=== PATIENT | female | born 1975 | race Caucasian/White ===

== ENCOUNTER 2017-04-26 16:45 | Emergency (ER) | payer MEDICAID, SELFPAY ==
[2017-04-26 16:46] VITALS: BP 132/71; PULSE 80; RESP 16; TEMP 36.9; O2SAT 96; BMI 34.8
--- NOTE | 2017-04-26 17:08 | EKG12_ITS ---
Test Reason : CP Blood Pressure : / mmHG Vent. Rate : 072 BPM Atrial Rate : 072 BPM P-R Int : 142 ms QRS Dur : 082 ms QT Int : 402 ms P-R-T Axes : 053 094 034 degrees QTc Int : 440 ms Normal sinus rhythm with sinus arrhythmia Septal [place], age undetermined, cannot be excluded Confirmed by SAVITA ENCISO, GIN ([id number]), writer editor CHRISTINE FRENCH ([id number]) on 04/28/2017 9:45:00 AM Referred By: TIMI Confirmed By:GIN BARNEY MD
[2017-04-26 17:19] LABS: Absolute Neutrophil Count 9.8 X10^3/uL (2.0-7.7); Basophil# 0.01 X10^3/uL; Basophil% 0.1 % (0-1); Eosinophil# 0.06 X10^3/uL; Eosinophils% 0.5 % (0-5); Hematocrit 40.1 % (37-47); Hemoglobin 12.7 g/dl (12.0-15.0); Lymphocyte % 13.3 % (19-41); Mean Corp Hgb Conc 31.7 g/gl (32-36); Mean Corpuscular Hgb 29.3 pg (27.0-32.0); Mean Corpuscular Volume 92.6 fL (81-99); Mean Platelet Vol. 9.4 fl (6.2-12.0); Monocyte# 0.56 X10^3/uL; Monocyte% 4.6 % (0-10); Neutrophil # 9.83 X10^3/uL (2.7-7.7); Neutrophil % 81.4 % (47-70); POSITIVE COUNT NO; POSITIVE DIFFERENTIAL NO; POSITIVE MORPHOLOGY NO; Platelet Count 254 K/mm3 (150-450); RBC Distribution Width CV 14.1 % (11.6-14.6); RBC Distribution Width SD 47.7 fl (35.1-43.9); Red Blood Count 4.33 M/mm3 (4.2-5.4); White Blood Count 12.1 K/mm3 (4.4-11.0)
--- NOTE | 2017-04-26 17:26 | RAD_ITS ---
STUDY: X-RAY CHEST REASON FOR EXAM: Female, 41 years old. Pain. TECHNIQUE: PA and lateral views of the chest. COMPARISON: December 08, 2016 and March 23, 2017 FINDINGS: There is no significant interval change since the prior examinations. No new focal consolidation. Normal size heart. Normal mediastinum and violetta. Normal visualized pulmonary arteries. Normal visualized aortic arch and descending thoracic aorta. Normal visualized thoracic spine. Normal visualized ribs, clavicles, and shoulders. There is no demonstrated abnormality of the visualized soft tissue structures of the upper abdomen. RAD/Chest PA and Lateral IMPRESSION: No acute cardiopulmonary process. Electronically Signed: Shena Hall MD at 18:39 EST Tel , Service support ,
[2017-04-26 17:31] LABS: Anion Gap 7 (5-15); BUN 11 mg/dL (7-18); Calcium,Total 8.5 mg/dL (8.5-10.1); Chloride 110 mmol/L (98-107); Creatinine, Serum 0.61 mg/dL (0.55-1.02); EST Glomerular Filtration Rate 113 mL/min (>60); Est Glom Filt Rate - Afr Amer 137 mL/min (>60); Estimated Creatinine Clearance 99.38 ml/min; Glucose 91 mg/dL (74-106); Potassium 3.4 mmol/L (3.5-5.1); Sodium Level 142 mmol/L (136-145)
[2017-04-26] MEDS: Aspirin 81 MG TAB.CHEW 324 MG PO (17:55)
[2017-04-26 17:56] VITALS: BP 118/71; PULSE 79; RESP 17; O2SAT 98
[2017-04-26 18:34] VITALS: BP 115/72; PULSE 60; RESP 16; O2SAT 98
--- NOTE | 2017-04-26 18:41 | ED.VISSUMM ---
- ER Visit Summary Date of Service: 04/26/17 Chief Complaint: Chest pain History of Present Illness: The patient is a 41 F who presents with chest pain. This is been present for the past 4 days. She currently rates it as 8 out of 10. She states initially it felt like an indigestion but at times is aching. It is been constant all day today. She has some mild shortness of breath and cough. She felt lightheaded. She complains of pain worse with swallowing. She sometimes feels as if something is stuck in her throat. She states her pain radiated into her right neck shoulder blade and arm to about the elbow. She is a smoker and there is a strong family history of heart disease with father and brother having heart attacks in their 40s. The patient does not have diabetes hypertension or hyperlipidemia. She states she previously had a stress test in [place] but left before finding out the results. Physical Examination: Afebrile vitals are stable Moist mucous membranes Heart regular rate and rhythm Lungs are clear Abdomen soft 2+ radial pulses No extremity edema or tenderness Test Results: EKG shows sinus rhythm at a rate of 72. Chest x-ray shows no acute process. Laboratory studies unremarkable except white blood cell count 12.1. Emergency Department Course and Treatment: Patient was given aspirin. Her laboratory studies are unremarkable and EKG does not show any acute ischemic changes. However given her description of symptoms was associated shortness of breath lightheadedness pain radiating to the arm and strong family history I did recommend hospital observation for serial enzymes and stress testing. The patient refused. She elected to leave AGAINST MEDICAL ADVICE. We did have a discussion of risks and benefits including risk of heart attack or . She understands she is welcome to return for reevaluation at any time. I spoke to Dr. Riggs who is covering for the patient's primary care physician to help arrange for outpatient follow-up. I advised that as an alternative she should have further outpatient workup and outpatient stress testing. Treatment Plan: [] Disposition: Left AGAINST MEDICAL ADVICE Impression: Chest pain This note was generated with [employer] dictation software. It may contain incorrect words, spelling, and punctuation that were not noted in review of the chart prior to signing ED Disposition - Plan for ED Patient: Chief Complaint: Chest Pain Referrals: Sobeida Berger MD [Primary Care Provider] -
--- NOTE | 2017-04-26 18:44 | ED.DEP ---
ED Disposition - Plan for ED Patient: Chief Complaint: Chest Pain Instructions: ED Chest Pain Atypical Unkn Cause Referrals: Sobeida Berger MD [Primary Care Provider] -
== END 2017-04-26 19:42 | disposition left against medical advice (07) ==
PROVIDERS: Emergency Provider Emergency Medicine; Family Provider Internal Medicine; PCP Internal Medicine
DX: R07.9 Chest pain, unspecified (principal); R05 Cough; R06.00 Dyspnea, unspecified; F32.9 Major depressive disorder, single episode, unspecified; K21.9 Gastro-esophageal reflux disease without esophagitis; F17.200 Nicotine dependence, unspecified, uncomplicated; Z79.899 Other long term (current) drug therapy; Z98.51 Tubal ligation status; Z90.49 Acquired absence of other specified parts of digestive tract
CPT/HCPCS: 71046; 80048; 84484; 85025; 93005; 99283

== ENCOUNTER 2017-04-29 11:35 | Emergency (ER) | payer MEDICAID, SELFPAY ==
[2017-04-26 18:34] VITALS: BP 115/72
[2017-04-29 11:36] VITALS: BP 135/77; PULSE 84; RESP 16; TEMP 36.7; O2SAT 96; BMI 30.1
[2017-04-29 11:52] VITALS: O2SAT 97
--- NOTE | 2017-04-29 11:52 | EKG12_ITS ---
Test Reason : CP Blood Pressure : / mmHG Vent. Rate : 067 BPM Atrial Rate : 067 BPM P-R Int : 138 ms QRS Dur : 080 ms QT Int : 382 ms P-R-T Axes : 039 082 044 degrees QTc Int : 403 ms Normal sinus rhythm with sinus arrhythmia Normal ECG Confirmed by SAVITA ENCISO, GIN ([id number]), commissioning editor CHRISTINE FRENCH ([id number]) on 05/01/2017 2:16:29 PM Referred By: AMY Confirmed By:GIN BARNEY MD
[2017-04-29] MEDS: Aspirin 81 MG TAB.CHEW 324 MG PO (12:00)
--- NOTE | 2017-04-29 12:09 | ED.DCSUM_ITS ---
- ER Visit Summary Date of Service: 04/29/17 Chief Complaint: Chest pain History of Present Illness: The patient is a 41 F who has had chest pain for greater than 5 days. It is a pressure in her substernal area that comes and goes. Nothing makes it better or worse. It makes her feel short of breath. It radiates up into her neck. She was seen here a couple of days ago and signed out AMA after a negative workup. They wanted to admit her to the hospital due to some risk factors. She is a smoker and she does have a family history. She is not hypertensive or diabetic. Physical Examination: Vital signs reviewed. HEENT exam unremarkable. Heart is regular rate and rhythm without murmurs. Lungs are clear to auscultation. She does have sternal tenderness to palpation. Abdomen is soft and nontender. Extremities reveal no edema. Peripheral pulses are equal. Skin exam normal. Neurologic exam normal. Test Results: EKG is normal sinus rhythm with a rate of 67. Chest x-ray unremarkable. Laboratory studies are normal Emergency Department Course and Treatment: Patient was placed in the night monitor. She was given a GI cocktail. I feel that her symptoms are likely due to anxiety. She has had 2 negative troponins. She is young with less than 3 risk factors. Her JERICA score is 1. I do not feel she needs to be admitted. I will give her something for anxiety for home. Her partner was here today and was treated for trichomonas. I will treat her with Flagyl. She will follow up with her PCP Treatment Plan: [] Disposition: Discharge Impression: Chest pain, anxiety This note was generated with [employer] dictation software. It may contain incorrect words, spelling, and punctuation that were not noted in review of the chart prior to signing ED Disposition - Plan for ED Patient: Chief Complaint: Chest Pain Referrals: Sobeida Berger MD [Primary Care Provider] -
--- NOTE | 2017-04-29 12:11 | RAD_ITS ---
STUDY: X-RAY CHEST REASON FOR EXAM: Female, 41 years old. Chest pain and chest tightness. TECHNIQUE: Single AP portable view of the chest. COMPARISON: Comparison is made with prior examination dated April 26, 2017. FINDINGS: EKG electrodes are seen. The lungs are clear and expanded. Scattered calcified granulomas. There is no demonstrated pleural abnormality. Normal size heart. Normal mediastinum and violetta. Normal visualized pulmonary arteries. Normal visualized aortic arch and descending thoracic aorta. Normal visualized thoracic spine. Normal visualized ribs, clavicles, and shoulders. There is no demonstrated abnormality of the visualized soft tissue structures of the upper abdomen. RAD/Chest 1 View (Portable) IMPRESSION: Normal x-ray examination of the chest. Electronically Signed: Dmitri Ramesh MD at 12:29 EST Tel [phone], Service support ,
[2017-04-29 12:39] LABS: Absolute Neutrophil Count 5.9 X10^3/uL (2.0-7.7); Basophil# 0.03 X10^3/uL; Basophil% 0.4 % (0-1); Eosinophil# 0.06 X10^3/uL; Eosinophils% 0.7 % (0-5); Hematocrit 37.6 % (37-47); Lymphocyte % 18.6 % (19-41); Mean Corp Hgb Conc 31.9 g/gl (32-36); Mean Corpuscular Hgb 29.3 pg (27.0-32.0); Mean Corpuscular Volume 91.9 fL (81-99); Mean Platelet Vol. 9.6 fl (6.2-12.0); Monocyte# 0.56 X10^3/uL; Monocyte% 6.9 % (0-10); Neutrophil # 5.89 X10^3/uL (2.7-7.7); Neutrophil % 73.2 % (47-70); Platelet Count 268 K/mm3 (150-450); RBC Distribution Width CV 13.7 % (11.6-14.6); RBC Distribution Width SD 45.1 fl (35.1-43.9); Red Blood Count 4.09 M/mm3 (4.2-5.4); White Blood Count 8.1 K/mm3 (4.4-11.0)
[2017-04-29 12:42] LABS: POSITIVE COUNT NO; POSITIVE DIFFERENTIAL NO; POSITIVE MORPHOLOGY NO
[2017-04-29 12:47] LABS: Anion Gap 7 (5-15); BUN 12 mg/dL (7-18); BUN/Creat Ratio 22.2 RATIO (10-20); Calcium,Total 8.8 mg/dL (8.5-10.1); Chloride 105 mmol/L (98-107); Creatinine, Serum 0.54 mg/dL (0.55-1.02); EST Glomerular Filtration Rate 131 mL/min (>60); Est Glom Filt Rate - Afr Amer 159 mL/min (>60); Estimated Creatinine Clearance 112.27 ml/min; Glucose 93 mg/dL (74-106); Potassium 3.9 mmol/L (3.5-5.1); Sodium Level 139 mmol/L (136-145)
--- NOTE | 2017-04-29 13:12 | ED.RN ---
pt requesting medication for anxiety. pt also repoirts needing treated for trichominiasis.
--- NOTE | 2017-04-29 13:16 | ED.DEP ---
ED Disposition - Plan for ED Patient: Disposition: Home or Assisted Living Chief Complaint: Chest Pain Instructions: ED Chest Pain NonCardiac Prescriptions: HydrOXYzine RADHA [Vistaril] 50 mg PO TID PRN PRN #30 cap PRN Reason: Anxiety Referrals: Sobeida Berger MD [Primary Care Provider] -
[2017-04-29] MEDS: LORazepam 1 MG Tablet PO (13:33)
[2017-04-29] MEDS: metroNIDAZOLE 500 MG Tablet 2000 MG PO (13:33)
[2017-04-29 13:40] VITALS: BP 119/70; PULSE 81; RESP 14; O2SAT 99
--- NOTE | 2017-04-29 13:40 | ED.RN ---
THIS RN EDUCATED PT ON DISCHARGE INSTRUCTIONS AND HOME GOING PRESCRIPTIONS. PT VERBALIZES UNDERSTANDING. PT GIVEN PO ATIVAN AND FLAGYL PRIOR TO DISCHARGE. PT REPORTS SHE HAS A HX OF GERD AND HAS BEEN INCREDIBLY STRESSED LATELY. PT ENCOURAGED TO FOLLOW UP WITH DR. PRAKASH, ALSO ENCOURAGED TO FIND POSITIVE COPING MECHANISMS. PT ENCOURAGED TO RETURN TO ED IS HAVING DIFFICULTY WITH ANXIETY OR AND NEW OR WORSENED SX OF CHEST PAIN. PT IV D/C AND COVERED WITH 2X2 GAUZE DRESSING. MINIMAL BLEEDING NOTED. EDUCATED NOT TO DRIVE AFTER HAVING ATIVAN. PT DRESSES SELF AND AMBULATES HOME WITH FRIEND WITHOUT ASSISTANCE FROM STAFF.
== END 2017-04-29 13:46 | disposition home or self-care (01) ==
PROVIDERS: Emergency Provider Emergency Medicine; Family Provider Internal Medicine; PCP Internal Medicine
DX: R07.9 Chest pain, unspecified (principal); R06.02 Shortness of breath; F41.9 Anxiety disorder, unspecified; F17.200 Nicotine dependence, unspecified, uncomplicated; Z20.2 Contact with and (suspected) exposure to infections with a predominantly sexual mode of transmission; Z79.899 Other long term (current) drug therapy; Z86.19 Personal history of other infectious and parasitic diseases
CPT/HCPCS: 71045; 80048; 84484; 85025; 93005; 99285; A4216

== ENCOUNTER 2017-06-11 12:26 | Emergency (ER) | payer MEDICAID, SELFPAY ==
[2017-06-11 12:31] VITALS: BP 115/86; PULSE 77; PULSE 87; RESP 18; TEMP 36.5; O2SAT 97; O2SAT 98; BMI 37.0
--- NOTE | 2017-06-11 13:02 | VDLE_ITS ---
Reason For Study: pain RIGHT LEFT GSV is normal. GSV is normal. CFV is compressible, spontaneous, phasic, CFV is compressible, spontaneous, phasic, competent and demonstrates normal competent, and demonstrates normal augmentation. augmentation. FV is compressible, spontaneous, phasic, FV is compressible, spontaneous, phasic, competent and demonstrates normal competent and demonstrates normal augmentation. augmentation. POP V is compressible, spontaneous, phasic, POP V is compressible, spontaneous, phasic, competent and demonstrates normal competent and demonstrates normal augmentation. augmentation. T/P Trunk is compressible. T/P Trunk is compressible. PTV is compressible. PTV is compressible. RT PerV is compressible. LT PerV is compressible. Procedure Exam performed portable in ED. The exam was diagnostic. A preliminary report was called and/or faxed to Dr. Murillo. Interpretation Summary No evidence for acute deep venous thrombosis bilateral lower extremities with patent and compressible bilateral great saphenous veins. Ordering Physician: Cassius Murillo Performed By: Ilya Alexander RVT
[2017-06-11] MEDS: Ketorolac 30 MG/ML Syringe IV (13:17)
[2017-06-11 13:30] LABS: Absolute Lymphocyte Count 1.66 X10^3/ul (0.83-4.51); Absolute Neutrophil Count 6.4 X10^3/uL (2.0-7.7); Basophil# 0.02 X10^3/uL; Basophil% 0.2 % (0-1); Eosinophil# 0.07 X10^3/uL; Eosinophils% 0.8 % (0-5); Hematocrit 37.6 % (37-47); Hemoglobin 11.9 g/dl (12.0-15.0); Lymphocyte # 1.66 X10^3/ul (4.0); Lymphocyte % 18.8 % (19-41); Mean Corp Hgb Conc 31.6 g/gl (32-36); Mean Corpuscular Hgb 28.9 pg (27.0-32.0); Mean Corpuscular Volume 91.3 fL (81-99); Mean Platelet Vol. 9.6 fl (6.2-12.0); Monocyte# 0.62 X10^3/uL; Neutrophil # 6.42 X10^3/uL (2.7-7.7); Neutrophil % 72.6 % (47-70); POSITIVE COUNT NO; POSITIVE DIFFERENTIAL NO; POSITIVE MORPHOLOGY NO; Platelet Count 240 K/mm3 (150-450); RBC Distribution Width CV 13.3 % (11.6-14.6); RBC Distribution Width SD 43.9 fl (35.1-43.9); Red Blood Count 4.12 M/mm3 (4.2-5.4); White Blood Count 8.8 K/mm3 (4.4-11.0)
[2017-06-11 13:38] LABS: Anion Gap 6 (5-15); BUN 12 mg/dL (7-18); BUN/Creat Ratio 21.4 RATIO (10-20); Calcium,Total 8.4 mg/dL (8.5-10.1); Chloride 104 mmol/L (98-107); Creatinine, Serum 0.56 mg/dL (0.55-1.02); EST Glomerular Filtration Rate 125 mL/min (>60); Est Glom Filt Rate - Afr Amer 152 mL/min (>60); Estimated Creatinine Clearance 107.15 ml/min; Glucose 85 mg/dL (74-106); Sodium Level 138 mmol/L (136-145)
[2017-06-11 13:55] LABS: Pregnancy, Serum, hCG Quali. NEGATIVE Negative (0-9 Nonpreg)
[2017-06-11 14:03] LABS: Bacteria 0 SEEN /hpf (None Seen); Mucous, Urine 0 SEEN /hpf (<or=2+); Red Blood Cells-Urine 0 SEEN /hpf (0-5); White Blood Cells 0 SEEN /hpf (0-5)
[2017-06-11 14:05] LABS: Color, Urine Yellow (Yellow); Glucose, Dipstick Normal (Normal); Ketone-Dipstick Negative (Negative); Leukocyte Esterase-Dipstick Negative /ul (Negative); Nitrite-Dipstick Negative (Negative); Occult Blood-Urine Negative /ul (Negative); Protein-Dipstick Negative (Negative); Urine Bilirubin Dipstick Negative (Negative); Urine Clarity Clear (Clear); Urine Urobilinogen Normal (Normal)
[2017-06-11 14:14] LABS: Squamous Epithelial Cells - UA 0-5 SEEN /hpf (5-10)
--- NOTE | 2017-06-11 14:19 | ED.VISSUMM ---
- ER Visit Summary Date of Service: 06/11/17 Chief Complaint: Bilateral calf pain History of Present Illness: The patient is a [address] Berger. She reports that she has had pain in both calves for approximately a week. She states it got much worse today. She denies any trauma. No fall, MVA, or change in activity. She describes the pain as a sharp, burning pain. Is 10 out of 10 when she walks and 7 out of 10 at rest. She denies any numbness or weakness. Physical Examination: Vitals: Stable. Afebrile. General: Well-nourished and well-developed. Head: Normocephalic atraumatic. Neck: Supple, no lymphadenopathy. No JVD. Nontender. Cardiovascular: Regular rate and rhythm. No murmurs. Respiratory: No respiratory distress. Clear to auscultation bilaterally. Abdominal: Soft, nontender, nondistended, normal bowel sounds. No guarding, rebound, or peritoneal signs. Back: Nontender. Extremities: There is palpation over her calves bilaterally. There is no edema. She is a 2+ dorsalis pedis pulse bilaterally. There is no erythema or warmth to suggest infection. Skin: Normal color, no rash. Neurologic: Alert and oriented ?3. Cranial nerves II through XII are intact. Normal strength and sensation. Psych: Normal affect. Test Results: Lower extremity Dopplers were negative. CBC is marked for hemoglobin of 11.9, segmented neutrophils 73, lymphs at 19. Chem-7 is more for calcium of 8.4. UA is normal. test is negative. Emergency Department Course and Treatment: Patient was treated with Toradol IV and she is resting comfortably. Treatment Plan: At this time I do not have an explanation for the patient's pain. However, I do not think that being placed on opiate medication is in her best interest. She will be discharged naproxen and instructed to follow-up Dr. Berger for further evaluation. Return to the emergency department for any worsening symptoms. Disposition: To home in improved and stable condition. Impression: 1. Bilateral calf pain, acute. This note was generated with [employer] software. It may contain incorrect words, spelling, and punctuation that were not noted in review of the chart prior to signing ED Disposition - Plan for ED Patient: Disposition: Home or Assisted Living Chief Complaint: Lower Extremity Injury Instructions: ED Muscle Aching Prescriptions: Naproxen [Naprosyn] 500 mg PO BID #20 tablet Referrals: Sobeida Berger MD [Primary Care Provider] - 3-5 Days if not improving
[2017-06-11 14:30] VITALS: BP 115/83; PULSE 70; RESP 16; O2SAT 99
== END 2017-06-11 14:30 | disposition home or self-care (01) ==
PROVIDERS: Emergency Provider Emergency Medicine; Family Provider Internal Medicine; PCP Internal Medicine
DX: M79.662 Pain in left lower leg (principal); M79.661 Pain in right lower leg; J44.9 Chronic obstructive pulmonary disease, unspecified; Z72.0 Tobacco use; Z79.1 Long term (current) use of non-steroidal anti-inflammatories (NSAID); Z79.899 Other long term (current) drug therapy
CPT/HCPCS: 80048; 81001; 84703; 85025; 93970; 96361; 96374; 99285; J7040; A4216

== ENCOUNTER 2017-10-16 16:39 | Emergency (ER) | payer MEDICAID, SELFPAY ==
[2017-10-16 16:45] VITALS: BP 116/91; PULSE 87; RESP 18; TEMP 36.9; O2SAT 98; BMI 37.6
--- NOTE | 2017-10-16 16:54 | CT_ITS ---
STUDY: CT ABDOMEN AND PELVIS WITH CONTRAST REASON FOR EXAM: Female, 42 years old. Back pain RADIATION DOSAGE (If Supplied By Facility): CTDIvol = ( 19.11 ) mGy, DLP = ( 1147.13 ) mGycm TECHNIQUE: Transaxial images were obtained from the dome of the diaphragm to the symphysis pubis without oral contrast. 100ML ml of Isovue 300 contrast was administered. Sagittal and coronal images were reconstructed. Individualized dose optimization techniques were used for this CT. COMPARISON: September 23, 2016 FINDINGS: The visualized lung bases are unremarkable. The visualized portions of the heart are within normal limits. Normal liver. There are surgical clips in the gallbladder fossa consistent with a prior cholecystectomy. Normal spleen. Normal pancreas. Normal bilateral adrenal glands. Normal right kidney. Normal left kidney. Normal visualized stomach. Normal small intestine. Normal colon. There is non-visualization of the appendix. Normal abdominal aorta. Normal inferior vena cava. Normal retroperitoneum. Normal urinary bladder. Uterus normal. Normal abdominal wall. Limbus vertebrae at T12. Schmorl's node disease T11 and T12. CT/Abdomen/Pelvis W IV Cont ONLY IMPRESSION: Normal enhanced CT of the abdomen and pelvis. Electronically Signed: Ranjit Mistry MD at 18:27 EDT , Service support ,
--- NOTE | 2017-10-16 16:55 | ED.VISSUMM ---
- ER Visit Summary Date of Service: 10/16/17 Chief Complaint: Pelvic pain History of Present Illness: The patient is a 42 F who states today at work she has sudden onset of sharp stabbing and cramping suprapubic pain. States she feels it directly into her back. She is less this appears to weeks ago but now she is having some vaginal bleeding described as very heavy. She only has very regular periods. She had bilateral tubal ligation cholecystectomy. States she had a history of kidney stones as a kid. Patient states this feels like period cramps ?1000. Physical Examination: Afebrile vital signs stable Gen: Well-nourished well-developed Head: Normocephalic atraumatic Eyes: Perrl EOMI ENT: TMs clear no rhinorrhea moist mucous membranes Neck: Supple no lymphadenopathy no JVD nontender CVS: Regular rate rhythm no murmurs normal S1-S2 Respiratory: No distress clear to auscultation bilaterally chest nontender Abdomen: Soft she complains of tenderness palpation in the suprapubic region. Nondistended normal bowel sounds no masses Back: Nontender Extremity: Nontender no edema Skin: Normal color no rash Neuro: alert orientated ?3 CN II-XII intact normal strength sensation reflexes gait cerebellar Psych: Normal affect normal mood Test Results: CBC chemistries parents test negative. CT of the abdomen pelvis also negative. Emergency Department Course and Treatment: Patient received morphine and stated did not help. She received Toradol with some improvement. Patient will be discharged home on Toradol. She will follow-up with [facility]. Impression: 1. Abdominal pain 2. Dysfunctional uterine bleeding This note was generated with [facility] dictation software. It may contain incorrect words, spelling, and punctuation that were not noted in review of the chart prior to signing ED Disposition - Plan for ED Patient: Disposition: Home or Assisted Living Chief Complaint: Abd Pain Instructions: ED Bleed Irregular Vaginal Prescriptions: Ketorolac [Toradol] 10 mg PO Q8H PRN #12 tab PRN Reason: Pain Additional Instructions: Please follow-up with your [facility] MACHINE [facility]PERATOR [facility].
--- NOTE | 2017-10-16 17:01 | ED.DCSUM_ITS ---
- ER Visit Summary Date of Service: 10/16/17 Chief Complaint: Pelvic pain History of Present Illness: The patient is a 42 F who states today at work she has sudden onset of sharp stabbing and cramping suprapubic pain. States she feels it directly into her back. She is less this appears to weeks ago but now she is having some vaginal bleeding described as very heavy. She only has very regular periods. She had bilateral tubal ligation cholecystectomy. States she had a history of kidney stones as a kid. Patient states this feels like period cramps ?1000. Physical Examination: Afebrile vital signs stable Gen: Well-nourished well-developed Head: Normocephalic atraumatic Eyes: Perrl EOMI ENT: TMs clear no rhinorrhea moist mucous membranes Neck: Supple no lymphadenopathy no JVD nontender CVS: Regular rate rhythm no murmurs normal S1-S2 Respiratory: No distress clear to auscultation bilaterally chest nontender Abdomen: Soft she complains of tenderness palpation in the suprapubic region. Nondistended normal bowel sounds no masses Back: Nontender Extremity: Nontender no edema Skin: Normal color no rash Neuro: alert orientated ?3 CN II-XII intact normal strength sensation reflexes gait cerebellar Psych: Normal affect normal mood Test Results: CBC chemistries parents test negative. CT of the abdomen pelvis also negative. Emergency Department Course and Treatment: Patient received morphine and stated did not help. She received Toradol with some improvement. Patient will be discharged home on Toradol. She will follow-up with COATER OPERATOR. Impression: 1. Abdominal pain 2. Dysfunctional uterine bleeding This note was generated with [employer] dictation software. It may contain incorrect words, spelling, and punctuation that were not noted in review of the chart prior to signing ED Disposition - Plan for ED Patient: Disposition: Home or Assisted Living Chief Complaint: Abd Pain Instructions: ED Bleed Irregular Vaginal Prescriptions: Ketorolac [Toradol] 10 mg PO Q8H PRN #12 tab PRN Reason: Pain Additional Instructions: Please follow-up with your COATER OPERATOR.
[2017-10-16] MEDS: 0.9% Normal Saline 1,000 ML 125 ML IV (17:05)
[2017-10-16] MEDS: Ondansetron 4 MG/2 ML Vial IV (17:08)
[2017-10-16] MEDS: Morphine 4 MG/ML Syringe IV (17:08)
[2017-10-16 17:29] LABS: Absolute Lymphocyte Count 2.16 X10^3/ul (0.83-4.51); Absolute Neutrophil Count 6.1 X10^3/uL (2.0-7.7); Basophil# 0.01 X10^3/uL; Basophil% 0.1 % (0-1); Eosinophil# 0.06 X10^3/uL; Eosinophils% 0.7 % (0-5); Hematocrit 39.5 % (37-47); Hemoglobin 12.3 g/dl (12.0-15.0); Lymphocyte # 2.16 X10^3/ul (4.0); Lymphocyte % 24.1 % (19-41); Mean Corp Hgb Conc 31.1 g/gl (32-36); Mean Corpuscular Hgb 27.7 pg (27.0-32.0); Mean Platelet Vol. 9.5 fl (6.2-12.0); Monocyte# 0.65 X10^3/uL; Monocyte% 7.2 % (0-10); Neutrophil # 6.08 X10^3/uL (2.7-7.7); Neutrophil % 67.8 % (47-70); Platelet Count 311 K/mm3 (150-450); RBC Distribution Width SD 45.5 fl (35.1-43.9); Red Blood Count 4.44 M/mm3 (4.2-5.4)
[2017-10-16 17:31] LABS: Anion Gap 8 (5-15); BUN 13 mg/dL (7-18); BUN/Creat Ratio 20.8 RATIO (10-20); Calcium,Total 9.2 mg/dL (8.5-10.1); Chloride 105 mmol/L (98-107); Creatinine, Serum 0.62 mg/dL (0.55-1.02); EST Glomerular Filtration Rate 110 mL/min (>60); Est Glom Filt Rate - Afr Amer 134 mL/min (>60); Estimated Creatinine Clearance 96.78 ml/min; Glucose 95 mg/dL (74-106); Potassium 3.9 mmol/L (3.5-5.1); Sodium Level 140 mmol/L (136-145)
[2017-10-16 17:39] LABS: POSITIVE COUNT NO; POSITIVE DIFFERENTIAL NO; POSITIVE MORPHOLOGY NO
[2017-10-16 17:42] LABS: Pregnancy, Serum, hCG Quali. NEGATIVE Negative (0-9 Nonpreg)
[2017-10-16 18:23] LABS: Bacteria 0 SEEN /hpf (None Seen); Mucous, Urine 0 SEEN /hpf (<or=2+)
[2017-10-16 18:26] LABS: Color, Urine Yellow (Yellow); Glucose, Dipstick Normal (Normal); Ketone-Dipstick Negative (Negative); Leukocyte Esterase-Dipstick 25 /ul (Negative); Nitrite-Dipstick Negative (Negative); Occult Blood-Urine 250 /ul (Negative); Protein-Dipstick 15 mg/dl (Negative); Urine Bilirubin Dipstick Negative (Negative); Urine Clarity Sl. Cloudy (Clear); Urine Urobilinogen Normal (Normal)
[2017-10-16 18:43] LABS: Red Blood Cells-Urine 0-5 SEEN /hpf (0-5); Squamous Epithelial Cells - UA 0-5 SEEN /hpf (5-10); White Blood Cells 0-5 SEEN /hpf (0-5)
[2017-10-16 18:54] VITALS: BP 112/74; PULSE 75; RESP 18; O2SAT 98
[2017-10-16] MEDS: Ketorolac 30 MG/ML Syringe IV (19:13)
[2017-10-16 19:50] VITALS: BP 112/68; PULSE 78; RESP 16; O2SAT 98
== END 2017-10-16 19:56 | disposition home or self-care (01) ==
PROVIDERS: Emergency Provider Emergency Medicine; Family Provider Internal Medicine; PCP Internal Medicine
DX: N93.8 Other specified abnormal uterine and vaginal bleeding (principal); R10.9 Unspecified abdominal pain; F32.9 Major depressive disorder, single episode, unspecified; F41.9 Anxiety disorder, unspecified; Z79.899 Other long term (current) drug therapy; Z87.442 Personal history of urinary calculi; Z98.51 Tubal ligation status; Z90.49 Acquired absence of other specified parts of digestive tract
CPT/HCPCS: 74177; 80048; 81001; 84703; 85025; 96361; 96374; 96375; 99285; J7030; Q9967; A4216; J2405

== ENCOUNTER 2017-12-07 23:42 | Emergency (ER) | payer MEDICAID, SELFPAY ==
[2017-12-07 23:43] VITALS: BP 109/74; PULSE 107; RESP 18; TEMP 36.3; O2SAT 96; BMI 34.2
--- NOTE | 2017-12-07 23:55 | ED.VISSUMM ---
- ER Visit Summary Date of Service: 12/07/17 Chief Complaint: Nausea, vomiting, diarrhea History of Present Illness: The patient is a 42 F is had diarrhea for approximate the past 1 month. She has had mild nausea and vomiting that has worsened recently. She was a diffuse abdominal cramping just before she has diarrhea. She states she has stomach problems that are being worked up by her PCP. She has been given Bentyl but that seems to make her symptoms worse. She denies fever or chills. She denies recent antibiotics. Past history is significant for anxiety, kidney stone, asthma, IBS. She had hepatitis C that has been treated. Prior surgical history includes appendectomy, cholecystomy, tubal ligation. Physical Examination: Blood pressure is 109/74, temperature 97.4, heart rate 107, respiratory rate 18, pulse ox 96% on room air. Patient's lying in bed no acute distress. Head and neck examination unremarkable. Heart is regular rate and rhythm. Lung sounds are clear. Abdomen is soft with mild diffuse tenderness. No guarding or rebound. Hypoactive bowel sounds are present throughout. Test Results: [] Emergency Department Course and Treatment: Patient had lab work and stool studies ordered. When nursing went to start her IV line she stated she just wanted something to make her stop vomiting and having diarrhea. She did not want lab work done. Went back to the room to discuss with her. I advised her to give her something for nausea but we really do not have anything different to use for diarrhea other than what she is already using. Patient states she does not want other testing done. Family members with her and states they will take her to her doctor tomorrow. We discussed possibility of electrolyte abnormalities, dehydration, infectious diarrhea etc. and she voices understanding. Treatment Plan: [] Disposition: Discharge Impression: Gastroenteritis This note was generated with [employer] dictation software. It may contain incorrect words, spelling, and punctuation that were not noted in review of the chart prior to signing ED Disposition - Plan for ED Patient: Chief Complaint: Nausea/Vomiting/Diarrhea Referrals: Sobeida Berger MD [Primary Care Provider] -
--- NOTE | 2017-12-08 00:05 | ED.DEP ---
ED Disposition - Plan for ED Patient: Disposition: Home or Assisted Living Chief Complaint: Nausea/Vomiting/Diarrhea Instructions: ED Gastroenteritis Non Infec Prescriptions: Ondansetron [Zofran Odt] 4 mg PO Q8H PRN PRN #10 tablet PRN Reason: Nausea Referrals: Sobeida Berger MD [Primary Care Provider] - As soon as possible
[2017-12-08] MEDS: Ondansetron ODT 4 MG Tablet PO ×2 (00:14)
--- NOTE | 2017-12-08 00:16 | ED.DEP ---
ED Disposition - Plan for ED Patient: Disposition: Home or Assisted Living Chief Complaint: Nausea/Vomiting/Diarrhea Instructions: ED Gastroenteritis Non Infec Prescriptions: proMETHazine tablet [Phenergan] 25 mg PO Q6H PRN PRN #10 tab PRN Reason: Nausea Ondansetron [Zofran Odt] 4 mg PO Q8H PRN PRN #10 tablet PRN Reason: Nausea Referrals: Sobeida Berger MD [Primary Care Provider] - As soon as possible
[2017-12-08 00:24] VITALS: RESP 14
== END 2017-12-08 00:25 | disposition home or self-care (01) ==
LOC: ED 12-08 00:19
PROVIDERS: Emergency Provider Emergency Medicine; Family Provider Internal Medicine; PCP Internal Medicine
DX: K52.9 Noninfective gastroenteritis and colitis, unspecified (principal); J45.909 Unspecified asthma, uncomplicated; F41.9 Anxiety disorder, unspecified; Z72.0 Tobacco use; Z87.442 Personal history of urinary calculi; Z86.19 Personal history of other infectious and parasitic diseases; Z98.51 Tubal ligation status
CPT/HCPCS: 99282; A4216

== ENCOUNTER 2018-01-30 10:48 | Emergency (ER) | payer MEDICAID, SELFPAY ==
[2018-01-30 10:50] VITALS: BP 119/74; PULSE 70; RESP 16; TEMP 36.4; O2SAT 97; BMI 30.9
--- NOTE | 2018-01-30 11:24 | CT_ITS ---
STUDY: CT ABDOMEN AND PELVIS WITHOUT CONTRAST REASON FOR EXAM: Female, 42 years old. Pain. Injury RADIATION DOSAGE (If Supplied By Facility): CTDIvol = ( 15.03 ) mGy, DLP = ( 732.43 ) mGycm TECHNIQUE: Transaxial images were obtained from the dome of the diaphragm to the symphysis pubis without oral contrast, and without intravenous contrast. Sagittal and coronal images were reconstructed. Individualized dose optimization techniques were used for this CT. COMPARISON: October 17, 2015. FINDINGS: The visualized lung bases are unremarkable. The visualized portions of the heart are within normal limits. There is hepatomegaly with diffuse hepatic enlargement. There are surgical clips in the gallbladder fossa consistent with a prior cholecystectomy. Normal spleen. Normal pancreas. Normal bilateral adrenal glands. Normal right kidney. Normal left kidney. Normal visualized stomach. Normal small intestine. Normal colon. There is non-visualization of the appendix. Normal abdominal aorta. Normal inferior vena cava. Normal retroperitoneum. Normal urinary bladder. Normal visualized uterus. There is no free fluid in the abdomen or pelvis. Normal abdominal wall. . Nondisplaced left anterior eighth rib fracture, series 2 image 33/176. CT/Abdomen/Pelvis without Cont IMPRESSION: Left rib fracture. No solid organ injury. Electronically Signed: Doonvan Campos MD at 13:26 EST , Service support ,
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
[2018-01-30] MEDS: 0.9% Normal Saline 1,000 ML 1000 ML IV (12:09)
[2018-01-30] MEDS: Ondansetron 4 MG/2 ML Vial IV (12:09)
[2018-01-30] MEDS: Morphine 4 MG/ML Syringe IV (12:09)
[2018-01-30 12:19] LABS: Bacteria 0 SEEN /hpf (None Seen); Mucous, Urine 0 SEEN /hpf (<or=2+); Red Blood Cells-Urine 0 SEEN /hpf (0-5); White Blood Cells 0 SEEN /hpf (0-5)
[2018-01-30 12:23] LABS: Absolute Neutrophil Count 8.5 X10^3/uL (2.0-7.7); Basophil# 0.01 X10^3/uL; Basophil% 0.1 % (0-1); Eosinophils% 0.9 % (0-5); Hematocrit 43.1 % (37-47); Hemoglobin 13.5 g/dl (12.0-15.0); Lymphocyte % 15.4 % (19-41); Mean Corp Hgb Conc 31.3 g/gl (32-36); Mean Corpuscular Volume 89.2 fL (81-99); Mean Platelet Vol. 9.8 fl (6.2-12.0); Monocyte# 0.65 X10^3/uL; Monocyte% 5.9 % (0-10); Neutrophil # 8.54 X10^3/uL (2.7-7.7); Neutrophil % 77.5 % (47-70); POSITIVE COUNT NO; POSITIVE DIFFERENTIAL NO; POSITIVE MORPHOLOGY NO; Platelet Count 256 K/mm3 (150-450); RBC Distribution Width CV 14.6 % (11.6-14.6); RBC Distribution Width SD 47.2 fl (35.1-43.9); Red Blood Count 4.83 M/mm3 (4.2-5.4)
[2018-01-30 12:24] LABS: Color, Urine Yellow (Yellow); Glucose, Dipstick Normal (Normal); Ketone-Dipstick 5 mg/dl (Negative); Leukocyte Esterase-Dipstick 25 /ul (Negative); Nitrite-Dipstick Negative (Negative); Occult Blood-Urine Negative /ul (Negative); Protein-Dipstick 30 mg/dl (Negative); Specific Gravity, Urine 1.015 (1.002-1.030); Urine Bilirubin Dipstick Negative (Negative); Urine Clarity Clear (Clear); Urine Urobilinogen Normal (Normal)
[2018-01-30 12:25] LABS: Internal QC Validated? YES +Cl - CLEAR BKGD; Pregnancy, Urine Negative Negative
[2018-01-30 12:29] LABS: Squamous Epithelial Cells - UA 5-10 SEEN /hpf (5-10)
[2018-01-30 12:46] LABS: AST(SGOT) 13 U/L (15-37); Alanine Aminotransfer ALT/SGPT 21 U/L (13-56); Albumin, Serum 3.7 g/dL (3.2-5.0); Alkaline Phosphatase 79 U/L (45-117); Anion Gap 5 (5-15); BUN 13 mg/dL (7-18); BUN/Creat Ratio 21.4 RATIO (10-20); Bilirubin, Direct 0.16 mg/dL (0.00-0.30); Calcium,Total 8.6 mg/dL (8.5-10.1); Chloride 103 mmol/L (98-107); Creatinine, Serum 0.61 mg/dL (0.55-1.02); EST Glomerular Filtration Rate 114 mL/min (>60); Est Glom Filt Rate - Afr Amer 138 mL/min (>60); Estimated Creatinine Clearance 98.37 ml/min; Globulin 3.9 g/dL (2.2-4.2); Glucose 83 mg/dL (74-106); Lipase 186 U/L (73-393); Potassium 3.7 mmol/L (3.5-5.1); Protein, Total 7.6 g/dL (6.4-8.2); Sodium Level 136 mmol/L (136-145)
[2018-01-30 14:27] VITALS: BP 100/84; PULSE 85; RESP 19; O2SAT 99
--- NOTE | 2018-01-30 15:06 | ED.DEP ---
ED Disposition - Plan for ED Patient: Chief Complaint: Other, Pain/Inj Instructions: ED Diet Vomiting Diarrhea, ED Fx Rib Referrals: Sobeida Berger MD [Primary Care Provider] -
== END 2018-01-30 15:19 | disposition home or self-care (01) ==
LOC: ED 11:52
PROVIDERS: Emergency Provider Emergency Medicine; Family Provider Internal Medicine; PCP Internal Medicine
DX: R19.7 Diarrhea, unspecified (principal); S22.32XD Fracture of one rib, left side, subsequent encounter for fracture with routine healing; Y09 Assault by unspecified means; Z79.899 Other long term (current) drug therapy
CPT/HCPCS: 71046; 74176; 80048; 80076; 81001; 81025; 83690; 85025; 96361; 96374; 96375; 99283; J7030; J2405

== ENCOUNTER 2018-06-14 08:49 | Outpatient (RCR) | payer MEDICAID, SELFPAY ==
[2018-02-18 08:17] VITALS: BMI 30.1
--- NOTE | 2018-06-14 09:02 | BH.SGPN.GN ---
Behaviors/Verbalizations/Mental Status: []Client alert and oriented, casually dressed and groomed. Eye contact good. Motor activity appropriate. Speech within normal limits. Affect constricted, mood anxious. Thoughts linear, logical, no signs of hallucinations or delusions. Reviewed client?s symptom tracker, no risk for suicidal ideation, plan, or intent as of 06/14/18. Client Response/Progress/Benefit: []Client responded well to session, receptive to supportive statements from peers. Client reports feeling ?anxious? today as it is her first day in [facility]. Client shared she came to [facility] because of her depression, anxiety, and hearing voices. Client reported she hopes to learn ?a lot about myself? and gain coping skills while in the program. Client able to identify making it to group today and spending time with a friend over the weekend as mental health positives. Client shared she feels glad that ?we can be real in here? and connected with others on feeling overwhelmed. Client stated she also struggles with claustrophobia and reported feeling proud of herself for staying in the group room with the door closed. Client appeared to benefit from gaining support from peers. Client?s first day in [facility]. Client to continue to prevent decompensation and reduce intensity of symptoms.
--- NOTE | 2018-06-14 11:16 | BH.SGPN.GN ---
Behaviors/Verbalizations/Mental Status: [Eye contact is good. Motor activity is appropriate. Appearance is casual. Speech is Appropriate. Mood is anxious, dysthymic. Affect is congruent with mood. Thoughts are linear and logical. No evidence of psychosis.] Client Response/Progress/Benefit: [Pt participated in group activity and discussion, providing input and reflection to group. Pt worked with the group to complete the challenge activity and identify barriers encountered that may also impact managing stress in daily life. Identified barriers as focusing on trying to do the same thing over and over again, difficulty managing frustration, and negative self-talk. Pt worked with the group to identify strategies for coping with stress which included; singing and healthy distraction. Benefited from identifying personal barriers to managing stress, impact of stress on mental health, and stress management strategies. Pt indicated wanting to work on current stressor of medication noncompliance by taking them as prescribed and putting them somewhere she will remember. Pt to continue in IOP to prevent decompensation, improve management of depression and increase healthy skill application.] Narrative Note: []
--- NOTE | 2018-06-15 09:00 | BH.SGPN.GN ---
Behaviors/Verbalizations/Mental Status: [] Eye contact is good. Motor activity is appropriate. Appearance is casual. Speech is Appropriate. Mood is anxious. Affect is congruent. Thoughts are linear and logical. No evidence of psychosis. Reviewed daily check in sheet and no reports of suicidal ideations or intent Client Response/Progress/Benefit: [] Pt did participate at time during group discussions. Emotion for today is anxious. Shared some positives stating that she made it through her 1st day of IOP yesterday w/o having a panic attack. Also reports that she slept well last night, which is the first time in awhile for her. Also reports that she spent time with her sister. Shared that she struggles with her anxiety and cannot sit for longer than 30 minutes. Restless, fearful, and strong desire to move or leave a room after 30 minutes. No overt triggers to her anxiety. Group praised her for starting IOP and for her positives yesterday. Progress noted. Will continue in IOP to prevent decompensation, stabilize mood and medications, and increase mood management strategies for anxiety. Narrative Note: []
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
--- NOTE | 2018-06-15 15:16 | BH.MDN ---
Multi-Disciplinary Note - Note 60-min Individual Time Started:: 11:10 Date: 06/15/18 Purpose of session/treatment goals addressed:: Purpose of session was to assess pt's current symptoms and stressors. Other topics included: identifying treatment goals for IOP, gathering additional background information, and providing resources for housing/custodial. Eye Contact:: Good Motor Activity:: Restless Appearance:: Casual Speech:: Appropriate Mood:: Anxious Affect:: Congruent Thoughts:: Linear, Logical Staff Interventions:: Therapist used open ended questions to elicit pt's current symptoms and stressors. Therapist elicited pt's thoughts about treatment goals while in IOP. Therapist used probing questions to gather additional background information. Therapist provided resources for housing support. Therapist provided support by using active listening and validating emotions. Client Response:: Pt reported she would like to learn healthy coping strategies, be less anxious, increase self-esteem, and be able to start and finish a project. Pt shared her auditory hallucinations are always there constantly telling her to run. Pt reported in the past the hallunications would tell her to hurt herself or others, but reported she hasn't had those types of hallucinations since February 2018. Pt shared she doesn't think her medications are right because of how frequently she is hearing voices. Pt stated she has heard voices for years, but never told anyone until her hospitalization in February 2018. Pt reported she is hoping to get on a medication that can help decrease auditory hallucinations. Pt reported she is currently going between sleeping on the couch at her brother's house and her mom's house. Pt stated those living situations are not the best environments for her because there is often conflict and technically her mom is not allowed to have visitors due to [place] rules. Pt shared on the warmer nights she has slept at the park. Pt shared she feels all over the place because of her inconsistent living situation. Pt reported thus far she enjoys IOP and is hopeful she can learn healthy skills to help her manage her symptoms and feel more stable in her life. Pt agreeable to call [facility] to see if there are any beds available for women's custodial. Risks/Concerns:: Pt denies current suicidal ideation, plan or intention to date. Pt does report hx of command hallucinations telling her to harm herself or others. Pt states since inpatient hospitalization 03/2018 her command hallucinations have not told her to harm self or others. Pt will be continually monitored for risk. Progress Toward Goals/Plan:: No progress noted due to it only being pt's second day in IOP. Session focused on gathering background information and establishing treatment goals. Pt to continue IOP level of care to increase healthy coping, decrease hallucinations, and prevent decompensation. Time Stopped:: 12:15
--- NOTE | 2018-06-15 15:24 | BH.MDN_ITS ---
Multi-Disciplinary Note - Note 60-min Individual Time Started:: 11:10 Date: 06/15/18 Purpose of session/treatment goals addressed:: Purpose of session was to assess pt's current symptoms and stressors. Other topics included: identifying treatment goals for IOP, gathering additional background information, and providing resources for housing/penitentiary. Eye Contact:: Good Motor Activity:: Restless Appearance:: Casual Speech:: Appropriate Mood:: Anxious Affect:: Congruent Thoughts:: Linear, Logical Staff Interventions:: Therapist used open ended questions to elicit pt's current symptoms and stressors. Therapist elicited pt's thoughts about treatment goals while in IOP. Therapist used probing questions to gather additional background information. Therapist provided resources for housing support. Therapist provided support by using active listening and validating emotions. Client Response:: Pt reported she would like to learn healthy coping strategies, be less anxious, increase self-esteem, and be able to start and finish a project. Pt shared her auditory hallucinations are always there constantly telling her to run. Pt reported in the past the hallunications would tell her to hurt herself or others, but reported she hasn't had those types of hallucinations since February 2018. Pt shared she doesn't think her medications are right because of how frequently she is hearing voices. Pt stated she has heard voices for years, but never told anyone until her hospitalization in February 2018. Pt reported she is hoping to get on a medication that can help decrease auditory hallucinations. Pt reported she is currently going between sleeping on the couch at her brother's house and her mom's house. Pt stated those living situations are not the best environments for her because there is often conflict and technically her mom is not allowed to have visitors due to [place]. Pt shared on the warmer nights she has slept at the park. Pt shared she feels all over the place because of her inconsistent living situation. Pt reported thus far she enjoys IOP and is hopeful she can learn healthy skills to help her manage her symptoms and feel more stable in her life. Pt agreeable to call [facility] to see if there are any beds available for women's penitentiary. Risks/Concerns:: Pt denies current suicidal ideation, plan or intention to date. Pt does report hx of command hallucinations telling her to harm herself or others. Pt states since inpatient hospitalization 03/2018 her command hallucinations have not told her to harm self or others. Pt will be continually monitored for risk. Progress Toward Goals/Plan:: No progress noted due to it only being pt's second day in IOP. Session focused on gathering background information and establishing treatment goals. Pt to continue IOP level of care to increase healthy coping, decrease hallucinations, and prevent decompensation. Time Stopped:: 12:15
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
--- NOTE | 2018-06-18 15:07 | BH.DR.ITP ---
Initial Treatment Plan - Patient Information Visit Information: ADMISSION DATE: 06/14/18 EXPECTED LOS: 4-6 weeks Diagnoses:: Schizoaffective disorder, depressed type; persistent depressive disorder; borderline personality disorder; alcohol use disorder, cannabis use disorder - Problems/Symptoms Problem #1:: Schizoaffective disorder Symptom:: auditory hallucinations; command hallucinations; paranoia; depression Problem #2:: Persistent depressive disorder Symptom:: low mood; anhedonia; low energy and low motivation Problem #3:: borderline personality disorder Symptom:: mood swings, anger problems, relationship problems, impulsivity
--- NOTE | 2018-07-02 16:18 | BH.MTP_ITS ---
[facility] Treatment Plan - Patient Information Program Physician:: Dr. Dhaliwal Primary Therapist:: Fouzia Knapp, [facility] - Psychiatric Diagnoses Psychiatric Diagnoses:: Schizoaffective disorder, depressed type; persistent depressive disorder; alcohol use disorder in early remission; cannabis use disorder; r/o substance-induced psychotic disorder; borderline personality disorder Diagnosis Code(s):: F25.1 - Estimated LOS Estimated LOS (in weeks):: 6 Problem/Goal #1 - Problem/Goal #1 Stated Goal:: Control or eliminate active psychotic symptoms so that functioning is positive and medication is taken consistently. Description of Barriers: Pt has hx of medication noncompliance, hx of substance abuse, and difficulty tolerating being in enclosed spaces which could be barriers to treatment process. Pt's auditory hallucinations and paranoia could also impact treatment. Pt currently does not have stable living situation which could be barrier to treatment because often anxious about where she will be sleeping next. It could be challenging for pt to focus on using healthy coping when focused on meeting her basic needs. Functional Impact: Pt has recent psychiatric admission for suicide attempt via overdose then discharged into a residential facility for substance use. Pt difficulty maintaining employment, difficulty maintaining healthy relationships and not functioning at baseline. Goal Relevant Strengths/Supports: Pt is resilient and reports being motivated to get better. - Objectives Objective #1 Stated Objective: Report a decrease in psychotic symptoms through the consistent use of psychotropic medications. Interventions: Therapist will check-in with pt about medication compliance and effectiveness. Encourage consistent taking of prescribed medications. Discharge Criteria: Pt will have completed this objective when reports control or elimination of psychotic symptoms and reports improvement in daily functioning. Problem/Goal #2 - Problem/Goal #2 Stated Goal:: Client will reduce depressive symptoms, feelings of worthlessness, and anhedonia due to Persistent Depressive Disorder through Intensive Outpatient Program. Description of Barriers: Pt has hx of medication noncompliance, hx of substance abuse, and difficulty tolerating being in enclosed spaces which could be barriers to treatment process. Pt's auditory hallucinations and paranoia could also impact treatment. Pt currently does not have stable living situation which could be barrier to treatment because often anxious about where she will be sleeping next. It could be challenging for pt to focus on using healthy coping when focused on meeting her basic needs. Functional Impact: Pt has recent psychiatric admission for suicide attempt via overdose then discharged into a residential facility for substance use. Pt difficulty maintaining employment, difficulty maintaining healthy relationships and not functioning at baseline. Goal Relevant Strengths/Supports: Pt is resilient and reports being motivated to get better. - Objectives Objective #1 Stated Objective: Identify at least 2-3 negative self-talk messages used to reinforce feelings of worthlessness and replace thoughts with positive messages. Interventions: Therapist will help client identify distorted, negative beliefs about self and replace with more realistic, affirmative messages. Discharge Criteria: Client will have achieved this goal when can verbalize at least 2 negative self-talk messages and effectively replace those thoughts with affirmative messages. Target Date: 07/27/18 Review Date: 07/13/18 Objective #2 Stated Objective: Pt will decrease depressive symptoms AEB pt?s score on the DSM 5 cross-cutting measure and improve pt?s daily functioning. Interventions: Through groups and individual therapy, pt will be provided with education on cognitive distortions, mistaken beliefs, and identifying and combating negative self-talk. Therapist will assist pt with getting back into the activities she once enjoyed as well as increasing healthy coping strategies. Discharge Criteria: Pt will have met this goal when pt?s score on the DSM 5 cross cutting measure for depression has been decreased and per pt?s report daily functioning has improved. Target Date: 07/27/18 Review Date: 07/13/18 Problem/Goal #3 - Problem/Goal #3 Stated Goal:: Develop and demonstrate coping skills to deal with mood swings. Description of Barriers: Pt has hx of medication noncompliance, hx of substance abuse, and difficulty tolerating being in enclosed spaces which could be barriers to treatment process. Pt's auditory hallucinations and paranoia could also impact treatment. Pt currently does not have stable living situation which could be barrier to treatment because often anxious about where she will be sleeping next. It could be challenging for pt to focus on using healthy coping when focused on meeting her basic needs. Functional Impact: Pt has recent psychiatric admission for suicide attempt via overdose then discharged into a residential facility for substance use. Pt difficulty maintaining employment, difficulty maintaining healthy relationships and not functioning at baseline. Goal Relevant Strengths/Supports: Pt is resilient and reports being motivated to get better. - Objectives Objective #1 Stated Objective: Client will learn and utilize 2-3 healthy coping strategies to manage mood swings. Interventions: Therapist will help client develop insight into her mental health triggers and help her find strategies to help manage her moods. Discharge Criteria: Client will have met this goal when can identify and has utilized at least 2 healthy coping strategies that help manage mood swings. Target Date: 07/27/18 Review Date: 07/13/18
== END 2018-06-20 23:59 ==
LOC: BHIOP 08:49
PROVIDERS: Family Provider Internal Medicine; PCP Internal Medicine; Referring Provider Psychiatry & Neurology Psychiatry; Visit Provider Psychiatry & Neurology Psychiatry
DX: F32.89 Other specified depressive episodes (principal); Z72.89 Other problems related to lifestyle; F12.90 Cannabis use, unspecified, uncomplicated; F10.21 Alcohol dependence, in remission; F60.3 Borderline personality disorder; E66.9 Obesity, unspecified; K21.9 Gastro-esophageal reflux disease without esophagitis; R51 Headache; B19.20 Unspecified viral hepatitis C without hepatic coma; F17.210 Nicotine dependence, cigarettes, uncomplicated; Z79.899 Other long term (current) drug therapy; Z62.810 Personal history of physical and sexual abuse in childhood; Z91.410 Personal history of adult physical and sexual abuse
CPT/HCPCS: 99204; H0035; H2012; H2020; 90837

== ENCOUNTER 2018-06-17 09:21 | Emergency (ER) | payer MEDICAID, SELFPAY ==
[2018-02-18 08:17] VITALS: BMI 30.1
[2018-06-17 09:23] VITALS: BP 110/69; PULSE 77; RESP 12; TEMP 37.2; O2SAT 96; BMI 38.3
--- NOTE | 2018-06-17 09:46 | RAD_ITS ---
STUDY: X-RAY - UNILATERAL RIBS ( LEFT ) WITH CHEST REASON FOR EXAM: Female, 43 years old. Left rib pain due to injury. TECHNIQUE - RIBS: 4 view(s) of the ribs. TECHNIQUE - CHEST: PA and lateral views of the chest. COMPARISON: Comparison is made with prior chest radiograph dated January 30, 2018. FINDINGS - RIBS: Normal visualized ribs without a demonstrated fracture. FINDINGS - CHEST: The lungs are clear and expanded. There is no demonstrated pleural abnormality. Normal size heart. Normal mediastinum and violetta. Normal visualized pulmonary arteries. Normal visualized aortic arch and descending thoracic aorta. Normal visualized thoracic spine. Normal visualized ribs, clavicles, and shoulders. There is no demonstrated abnormality of the visualized soft tissue structures of the upper abdomen. RAD/Ribs Uni Min 3V w/PA Chest IMPRESSION: RIBS: Normal x-ray examination of the ribs. CHEST: Normal x-ray examination of the chest. Electronically Signed: Dmitri Ramesh, at 11:16 EDT , Service support ,
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
[2018-06-17] MEDS: Albuterol 2.5 MG/3 ML VIAL.NEB. INHALATION ×2 (09:56→09:57)
[2018-06-17] MEDS: Ipratropium/Albuterol Sulfate 3 ML AMPUL.NEB INHALATION (09:56)
[2018-06-17 09:57] VITALS: PULSE 63; RESP 18
[2018-06-17] MEDS: HYDROcodone Bitartrate/Apap 5/325 Tablet PO (10:46)
[2018-06-17] MEDS: predniSONE 20 MG Tablet 60 MG PO (10:47)
--- NOTE | 2018-06-17 12:00 | DCINST.ED_ITS ---
ED Disposition - Plan for ED Patient: Disposition: Home or Assisted Living Instructions: ED COPD Flare, ED Contusion Rib Prescriptions: Hydrocodone Bitart/Apap 5-325 [[place] 5MG-325MG] 1 tablet PO Q6H PRN PRN 3 Days #10 tablet PRN Reason: Pain Azithromycin [Zithromax] 250 mg PO DAILY #4 tablet Prednisone 10 mg PO UD #33 tablet Referrals: Sobeida Berger MD [Primary Care Provider] - 1-2 Weeks
[2018-06-17] MEDS: Azithromycin 250 MG Tablet 500 MG PO (12:12)
[2018-06-17 12:13] VITALS: BP 103/76; PULSE 64; RESP 14; O2SAT 97
== END 2018-06-17 12:17 | disposition home or self-care (01) ==
PROVIDERS: Emergency Provider Emergency Medicine; Family Provider Internal Medicine; PCP Internal Medicine
DX: J44.1 Chronic obstructive pulmonary disease with (acute) exacerbation (principal); S20.212A Contusion of left front wall of thorax, initial encounter; X58.XXXA Exposure to other specified factors, initial encounter; Y93.9 Activity, unspecified; Y92.9 Unspecified place or not applicable; Y99.9 Unspecified external cause status; K21.9 Gastro-esophageal reflux disease without esophagitis; G47.33 Obstructive sleep apnea (adult) (pediatric); F32.9 Major depressive disorder, single episode, unspecified; F41.9 Anxiety disorder, unspecified; Z72.0 Tobacco use; Z86.19 Personal history of other infectious and parasitic diseases
CPT/HCPCS: 71101; 94640; 99284

== ENCOUNTER 2018-06-23 09:00 | Outpatient (RCR) | payer MEDICAID, SELFPAY ==
[2018-06-21 01:44] VITALS: BMI 30.1
--- NOTE | 2018-06-23 10:07 | BH.SGPN.GN ---
Behaviors/Verbalizations/Mental Status: [Client eye contact good, grooming and attire casual, motor activity WNL, speech normal rate and tone, mood dysthymic, congruent affect, thoughts linear and intact, no evidence of delusions or hallucinations] Client Response/Progress/Benefit: [Pt receptive of session, attentive to discussion, and taking notes throughout. Pt remained a passive participant however listened as the group worked to reflect upon the quote regarding how we make decisions in our own lives. She indicated agreeing with others as they shared that that fear, past experiences, and anxiety can prevent making healthy decisions in daily life. Pt appeared to benefit from group discussion regarding ?Chapters of My Life? poem and provided insight regarding how each chapter can represent the various stages in management of mental health sx and healthy decision making. Pt did well to assess her own current mental health progress and shared that she is currently in Chapter 2 or 3. Explained that this is because ?I can see it coming but can?t stop it yet?, sharing that she identifies when she is about to make an unhealthy coping decision but struggles to keep herself from doing so. Pt progress noted in improved ability to reflect on her own experiences and impact they have had on mental health sx management. Recommended continued tx to continue to promote healthy change behaviors, reduce anxiety and depression, and prevent decompensating] Narrative Note: []
--- NOTE | 2018-06-23 11:15 | BH.SGPN.GN ---
Behaviors/Verbalizations/Mental Status: [] Eye contact is good. Motor activity is appropriate. Appearance is casual. Speech is Appropriate. Mood is depressed. Affect is flat. Thoughts are linear and logical. No evidence of psychosis. Client Response/Progress/Benefit: [] Pt was an active participant in group activity and discussion. Participated in group discussion about what helps people move through the chapters of their life. Completed that WDEP (wants, Doing, Evaluate, Plan) Worksheet and discussed with peers in small groups. Identified a want as to be stable and learn new ways to cope, identified things that she is doing in regards to that want which include; positive thinking, paying attention in group, and remaining sober from cannabis. She evaluated what she is doing stating that her want is realistic however is more future-oriented that skills will begin to work. Early in the treatment phase. Discussed her plan to continue on pace with her want which involves remaining sober and continue with IOP program. Benefited from group as she was able to identify personal steps she is doing to accomplish her want or goal. Narrative Note: []
--- NOTE | 2018-06-23 12:27 | BH.MDN ---
Multi-Disciplinary Note - Note 45-min Individual Time Started:: 09:11 Date: 06/23/18 Purpose of session/treatment goals addressed:: Purpose of session was to assess pt's current symptoms and stressors. Other topics: problem solving, coping skills, and negative thought patterns. Eye Contact:: Good Motor Activity:: Appropriate Appearance:: Casual Speech:: Appropriate Mood:: Euthymic Affect:: Congruent Thoughts:: Linear, Logical Staff Interventions:: Therapist used open ended questions to elicit pt's current symptoms and stressors. Therapist assisted pt with problem solving through current stressor of potentially moving to [place] for a job opportunity, but being nervous about not having mental health care established in [place]. Therapist assisted pt with identifying anxiety triggers. Provided psychoeducation about connection between thoughts, emotions, and behavior. Helped pt connect how some of her thought patterns increase her anxiety which results in pt not doing a certain activity that would be helpful for pt. Therapist provided homework for pt to keep a thought record to increase awareness of negative and distorted thought patterns. Client Response:: Client reported her mood has been overall stable the past few days. Client shared she has moved back to her mom's house to sleep on the couch because she couldn't handle the [facility]. 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 Client shared she believes the job will start in two weeks. Client reported she is nervous about moving to [facility] because she doesn't have any established mental health care. Client problem solved with therapist about starting to look at local mental health agencies that are nearby where she will be staying so she can call now to get an appointment for when she will be moving to [facility]. Client stated she has been getting along with mom, attending AA meetings, going to the [employer] [employer], and reduction in auditory hallucinations since a medication change with her outpatient psychiatrist this past Thursday. Client shared today is the first day in awhile that she hasn't had any voices, which she stated is wonderful because can think clearly. Client stated she still is paranoid people are out to get me, sometimes gets messages from TV or radio, and believes people can read her thoughts. Client recognized because of her paranoia she has a difficult time trusting others. Client identified not having many healthy skills to manage her anxious symptoms. Client shared she constantly feels like a burden to others. Client elaborated when she stays at her mom's house she won't turn the TV on at night because she is worried it will bother her mom and pt doesn't want to be a burden. With assistance from therapist pt connected that there is no evidence to support that pt is being a burden by watching tv and identified pt's mom told pt it was okay for her to watch tv at night. Pt seemed to connect with how her thought of being a burden increased her anxiety and depression which results in pt not turning the tv on. Pt agreeable to complete thought log for homework. Risks/Concerns:: Client denies suicidal/homicidal ideations, plan or intention to date. Progress Toward Goals/Plan:: Client progressing with maintaining sobriety, attending [employer] club and AA meetings for social support, using breathing skills to help manage anxiety, and reporting improved mood stability. Client continuing to report delusional thoughts with beliving others can hear her thoughts, receiving messages from electronics, and thinks others are out to get her. Client lacks insight that this thoughts are not reality. Client does note she hasn't had any auditory hallucinations today which she attributes to medication change two days ago. Client to continue IOP level of care to increase healthy coping, decrease depression, and prevent decompensation. Time Stopped:: 09:59
--- NOTE | 2018-06-23 13:06 | BH.MDN_ITS ---
Multi-Disciplinary Note - Note 45-min Individual Time Started:: 09:11 Date: 06/23/18 Purpose of session/treatment goals addressed:: Purpose of session was to assess pt's current symptoms and stressors. Other topics: problem solving, coping skills, and negative thought patterns. Eye Contact:: Good Motor Activity:: Appropriate Appearance:: Casual Speech:: Appropriate Mood:: Euthymic Affect:: Congruent Thoughts:: Linear, Logical Staff Interventions:: Therapist used open ended questions to elicit pt's current symptoms and stressors. Therapist assisted pt with problem solving through current stressor of potentially moving to [place] for a job opportunity, but being nervous about not having mental health care established in [place]. Therapist assisted pt with identifying anxiety triggers. Provided psychoeducation about connection between thoughts, emotions, and behavior. Helped pt connect how some of her thought patterns increase her anxiety which results in pt not doing a certain activity that would be helpful for pt. Therapist provided homework for pt to keep a thought record to increase awareness of negative and distorted thought patterns. Client Response:: Client reported her mood has been overall stable the past few days. Client shared she has moved back to her mom's house to sleep on the couch because she couldn't handle the [facility]. 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 Client shared she believes the job will start in two weeks. Client reported she is nervous about moving to [facility] because she doesn't have any established mental health care. Client problem solved with therapist about starting to look at local mental health agencies that are nearby where she will be staying so she can call now to get an appointment for when she will be moving to [facility]. Client stated she has been getting along with mom, attending AA meetings, going to the [place] club, and reduction in auditory hallucinations since a medication change with her outpatient psychiatrist this past Thursday. Client shared today is the first day in awhile that she hasn't had any voices, which she stated is wonderful because can think clearly. Client stated she still is paranoid people are out to get me, sometimes gets messages from TV or radio, and believes people can read her thoughts. Client recognized because of her paranoia she has a difficult time trusting others. Client identified not having many healthy skills to manage her anxious symptoms. Client shared she constantly feels like a burden to others. Client elaborated when she stays at her mom's house she won't turn the TV on at night because she is worried it will bother her mom and pt doesn't want to be a burden. With assistance from therapist pt connected that there is no evidence to support that pt is being a burden by watching tv and identified pt's mom told pt it was okay for her to watch tv at night. Pt seemed to connect with how her thought of being a burden increased her anxiety and depression which results in pt not turning the tv on. Pt agreeable to complete thought log for homework. Risks/Concerns:: Client denies suicidal/homicidal ideations, plan or intention to date. Progress Toward Goals/Plan:: Client progressing with maintaining sobriety, attending [place] club and AA meetings for social support, using breathing skills to help manage anxiety, and reporting improved mood stability. Client continuing to report delusional thoughts with beliving others can hear her thoughts, receiving messages from electronics, and thinks others are out to get her. Client lacks insight that this thoughts are not reality. Client does note she hasn't had any auditory hallucinations today which she attributes to medication change two days ago. Client to continue IOP level of care to increase healthy coping, decrease depression, and prevent decompensation. Time Stopped:: 09:59
--- NOTE | 2018-06-24 09:05 | BH.SGPN.GN ---
Behaviors/Verbalizations/Mental Status: []Client alert and oriented, casually dressed and groomed. Eye contact good. Motor activity appropriate. Speech within normal limits. Affect full, mood euthymic. Thoughts linear, logical, no signs of hallucinations or delusions. Reviewed client?s symptom tracker, no risk for suicidal ideation, plan, or intent as of 06/24/18. Client Response/Progress/Benefit: []Client responded well to session, engaged throughout. Client reports feeling ?good but tired? today after multiple mental health wins. Client?s mental health wins include being productive yesterday by cleaning and helping around her mother?s house. Client shared it has been difficult to get motivated and ?I felt great after.? Client?s reported her stressor today is ?also a positive? as client got a job offer, but she will have to move to [place]. 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 Client stated moving means leaving IOP quicker than she expected. Client appeared to benefit from reflecting on her positives and connecting with peers. Progress noted as client reports increased motivation. Client to continue IOP to further increase mood stability and prevent decompensation of symptoms.
--- NOTE | 2018-06-24 10:21 | BH.SGPN.GN ---
Behaviors/Verbalizations/Mental Status: [Client eye contact good, grooming and attire casual, motor activity WNL, speech normal rate and tone , mood anxious and dysthymic, congruent affect, thoughts linear and intact, no evidence of delusions or hallucinations] Client Response/Progress/Benefit: [Client receptive of session, providing some input and appearing attentive throughout discussion. Actively listening during discussion on what it means to ?take action? on mental health and the benefits of doing so. Pt expressed agreement that ?taking action? can be difficult but also very empowering as a result. Further agreed with peers that to make change, one needs self-awareness, patience, and support. Client identified things in own life she wants to start taking control over and change. These things included: self-confidence, willingness to ask for help, and negative self-talk. Client appeared to benefit from identifying things impacting mental wellness and learning what it means to ?take action.? Continued IOP tx recommended to reduce mental health sx, continue to promote healthy change behaviors, and prevent decompensation.] Narrative Note: []
--- NOTE | 2018-06-24 11:20 | BH.SGPN.GN ---
Behaviors/Verbalizations/Mental Status: []Pt eye contact good, casually dressed, motor activity appropriate, speech normal rate and tone, mood anxious, congruent affect, thoughts linear and intact, no evidence of delusions or hallucinations. Client Response/Progress/Benefit: []Client engaged, provided input to the group at times needed additional assistance from therapist to help her understand the action plan. Client identified for her action plan she would like to focus on decreasing unhealthy eating. Client reported this would benefit her because it will improve her view of self and improve health. Client shared that two small steps towards this goal she plans to take in the next 30 Days include: removing unhealthy snacks from her cupboard and will not eat a big meal after 5pm each day. She benefitted from reflecting with the group on the importance of taking small actionable steps towards addressing barriers and making notable changes in her life. Progress noted in ability to maintain focus throughout plan and ask for help when needed. Recommend continued IOP treatment to increase healthy coping, identify and challenge negative thoughts, and prevent decompensation. Narrative Note: []
--- NOTE | 2018-06-28 15:09 | BH.COMM ---
Communication Note - Communication with Client Communication Note: Received phone call from [facility] transportation that pt no showed being picked up today to be brought to [facility]. This jingle writer called pt and left voicemail asking for her to return phone call.
--- NOTE | 2018-06-30 15:10 | BH.COMM ---
Communication Note - Communication with Client Communication Note: This service writer called pt to confirm she would be attending IOP tomorrow since she no showed the [facility] transportation van on Thursday. Pt reported she has been sick the past couple of days, but will be attending IOP tomorrow.
--- NOTE | 2018-07-01 15:08 | BH.DS ---
Discharge Summary - Demographics Date of Admission:: 06/14/18 Discharge Date: 07/01/18 Presenting Problems at Admission:: Pt presented to [facility] after being discharged from a residential facility from 04/02/18-05/01/18 in [place]. Prior to residential pt had psychiatric admission from 03/23/18 - 04/02/18 due to command hallucinations and suicide attempt via overdose. At admission to [facility] pt endosred depression, no energy, hopelessness, worthelessness, decreased focus, decreased concentration, anhedonia, and isolative behaviors. Denied substance abuse at admission. Admitted to [facility] due to recent hospitalizations, depressive symptoms, and anxiety. Discharge Diagnoses:: F25.1 Schizoaffective disorder, depressed type; persistent depressive disorder; alcohol use disorder in early remission; cannabis use disorder; r/o substance-induced psychotic disorder; borderline personality disorder Reason for Discharge:: Pt no showed/no called two times this week and has not returned phone call. Pt's mother informed [facility] transportation when they went to pick pt up that pt had moved to [place]. - Treatment Progress During Treatment & Response: Pt showed progress with reporting decrease in auditory hallucinations and increased awareness of unhealthy thought patterns. Pt was often anxious during group sessions because reported did not like feeling closed in. Despite anxiety pt showed engagement in group and individual sessions AEB pt providing input during sessions. Pt progress could have been hindered by pt's inconsistent living situation which resulted in pt's focus being on getting her basic needs met. Issues Still to be Addressed:: Pt could benefit from continued focus on identifying and challenging distorted thought patterns. Pt could also benefit from learning healthy coping skills, improving emotional regulation, and reality testing. Discharge Recommendations/Instructions:: Pt did not return phone calls made by therapist to provide counseling resources for follow up care. Pt is currently established at [facility] counseling and [facility]. Discharge Handout: Complete Discharge Handout with client on aftercare options and continuity of care.
--- NOTE | 2018-07-01 15:11 | BH.COMM ---
Communication Note - Communication with Client Communication Note: [facility] transportation called IOP reporting pt no showed pick up attendant for IOP this morning. Transportation reported individual pt is staying with told the minibus driver pt has moved to [place].
--- NOTE | 2018-07-02 15:09 | BH.DS_ITS ---
Discharge Summary - Demographics Date of Admission:: 06/14/18 Discharge Date: 07/01/18 Presenting Problems at Admission:: Pt presented to [facility] after being discharged from a residential facility from 04/02/18-05/01/18 in [place]. Prior to residential pt had psychiatric admission from 03/23/18 - 04/02/18 due to command hallucinations and suicide attempt via overdose. At admission to [facility] pt endosred depression, no energy, hopelessness, worthelessness, decreased focus, decreased concentration, anhedonia, and isolative behaviors. Denied substance abuse at admission. Admitted to [facility] due to recent hospitalizations, depressive symptoms, and anxiety. Discharge Diagnoses:: F25.1 Schizoaffective disorder, depressed type; persistent depressive disorder; alcohol use disorder in early remission; cannabis use disorder; r/o substance-induced psychotic disorder; borderline personality disorder Reason for Discharge:: Pt no showed/no called two times this week and has not returned phone call. Pt's mother informed [facility] transportation when they went to pick pt up that pt had moved to [place]. - Treatment Progress During Treatment & Response: Pt showed progress with reporting decrease in auditory hallucinations and increased awareness of unhealthy thought patterns. Pt was often anxious during group sessions because reported did not like feeling closed in. Despite anxiety pt showed engagement in group and individual sessions AEB pt providing input during sessions. Pt progress could have been hindered by pt's inconsistent living situation which resulted in pt's focus being on getting her basic needs met. Issues Still to be Addressed:: Pt could benefit from continued focus on identifying and challenging distorted thought patterns. Pt could also benefit fr om learning healthy coping skills, improving emotional regulation, and reality testing. Discharge Recommendations/Instructions:: Pt did not return phone calls made by therapist to provide counseling resources for follow up care. Pt is currently established at [facility] counseling and [facility]. Discharge Handout: Complete Discharge Handout with client on aftercare options and continuity of care.
--- NOTE | 2018-07-02 15:10 | BH.COMM_ITS ---
Communication Note - Communication with Client Communication Note: Received phone call from [facility] transportation that pt no showed being picked up today to be brought to [facility]. This specifications writer called pt and left voicemail asking for her to return phone call.
--- NOTE | 2018-07-02 15:11 | BH.COMM_ITS ---
Communication Note - Communication with Client Communication Note: This customs entry writer called pt to confirm she would be attending IOP tomorrow since she no showed the [facility] transportation van on Thursday. Pt reported she has been sick the past couple of days, but will be attending IOP tomorrow.
--- NOTE | 2018-07-02 15:13 | BH.COMM_ITS ---
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 Transportation reported individual pt is staying with told the residential driver pt has moved to [place].
--- NOTE | 2018-07-02 15:33 | BH.MTP ---
Master Treatment Plan - Patient Information Program Physician:: Dr. Dhaliwal Primary Therapist:: Fouzia Knapp [facility] - Estimated LOS Estimated LOS (in weeks):: 6 Problem/Goal #1 - Problem/Goal #1 Stated Goal:: Control or eliminate active psychotic symptoms so that functioning is positive and medication is taken consistently. Description of Barriers: Pt has hx of medication noncompliance, hx of substance abuse, and difficulty tolerating being in enclosed spaces which could be barriers to treatment process. Pt's auditory hallucinations and paranoia could also impact treatment. Pt currently does not have stable living situation which could be barrier to treatment because often anxious about where she will be sleeping next. It could be challenging for pt to focus on using healthy coping when focused on meeting her basic needs. Functional Impact: Pt has recent psychiatric admission for suicide attempt via overdose then discharged into a residential facility for substance use. Pt difficulty maintaining employment, difficulty maintaining healthy relationships and not functioning at baseline. Goal Relevant Strengths/Supports: Pt is resilient and reports being motivated to get better. - Objectives Objective #1 Stated Objective: Report a decrease in psychotic symptoms through the consistent use of psychotropic medications. Interventions: Therapist will check-in with pt about medication compliance and effectiveness. Encourage consistent taking of prescibed medications. Discharge Criteria: Pt will have completed this objective when reports control or elimination of psychotic symptoms and reports improvement in daily functioning. Target Date: 07/27/18 Review Date: 07/13/18 Problem/Goal #2 - Problem/Goal #2 Stated Goal:: Client will reduce depressive symptoms, feelings of worthlessness, and anhedonia due to Persistent Depressive Disorder through Intensive Outpatient Program. Description of Barriers: Pt has hx of medication noncompliance, hx of substance abuse, and difficulty tolerating being in enclosed spaces which could be barriers to treatment process. Pt's auditory hallucinations and paranoia could also impact treatment. Pt currently does not have stable living situation which could be barrier to treatment because often anxious about where she will be sleeping next. It could be challenging for pt to focus on using healthy coping when focused on meeting her basic needs. Functional Impact: Pt has recent psychiatric admission for suicide attempt via overdose then discharged into a residential facility for substance use. Pt difficulty maintaining employment, difficulty maintaining healthy relationships and not functioning at baseline. Goal Relevant Strengths/Supports: Pt is resilient and reports being motivated to get better. - Objectives Objective #1 Stated Objective: Identify at least 2-3 negative self-talk messages used to reinforce feelings of worthlessness and replace thoughts with positive messages. Interventions: Therapist will help client identify distorted, negative beliefs about self and replace with more realistic, affirmative messages. Discharge Criteria: Client will have achieved this goal when can verbalize at least 2 negative self-talk messages and effectively replace those thoughts with affirmative messages. Target Date: 07/27/18 Review Date: 07/13/18 Objective #2 Stated Objective: Pt will decrease depressive symptoms AEB pt?s score on the DSM 5 cross-cutting measure and improve pt?s daily functioning. Interventions: Through groups and individual therapy, pt will be provided with education on cognitive distortions, mistaken beliefs, and identifying and combating negative self-talk. Therapist will assist pt with getting back into the activities she once enjoyed as well as increasing healthy coping strategies. Discharge Criteria: Pt will have met this goal when pt?s score on the DSM 5 cross cutting measure for depression has been decreased and per pt?s report daily functioning has improved. Target Date: 07/27/18 Review Date: 07/13/18 Problem/Goal #3 - Problem/Goal #3 Stated Goal:: Develop and demonstrate coping skills to deal with mood swings. Description of Barriers: Pt has hx of medication noncompliance, hx of substance abuse, and difficulty tolerating being in enclosed spaces which could be barriers to treatment process. Pt's auditory hallucinations and paranoia could also impact treatment. Pt currently does not have stable living situation which could be barrier to treatment because often anxious about where she will be sleeping next. It could be challenging for pt to focus on using healthy coping when focused on meeting her basic needs. Functional Impact: Pt has recent psychiatric admission for suicide attempt via overdose then discharged into a residential facility for substance use. Pt difficulty maintaining employment, difficulty maintaining healthy relationships and not functioning at baseline. Goal Relevant Strengths/Supports: Pt is resilient and reports being motivated to get better. - Objectives Objective #1 Stated Objective: Client will learn and utilize 2-3 healthy coping strategies to manage mood swings. Interventions: Therapist will help client develop insight into her mental health triggers and help her find strategies to help manage her moods. Discharge Criteria: Client will have met this goal when can identify and has utilized at least 2 healthy coping strategies that help manage mood swings. Target Date: 07/27/18 Review Date: 07/13/18
== END 2018-07-20 23:59 ==
LOC: BHIOP 09:00
PROVIDERS: Family Provider Internal Medicine; PCP Internal Medicine; Referring Provider Psychiatry & Neurology Psychiatry; Visit Provider Psychiatry & Neurology Psychiatry
DX: F25.1 Schizoaffective disorder, depressive type (principal); Z72.89 Other problems related to lifestyle; F12.90 Cannabis use, unspecified, uncomplicated; F60.3 Borderline personality disorder
CPT/HCPCS: H2012; H2020

== ENCOUNTER 2018-09-29 13:35 | Emergency (ER) | payer MEDICAID, SELFPAY ==
[2018-09-29 13:35] VITALS: BMI 38.3
[2018-09-29 13:36] VITALS: BP 111/71; PULSE 74; RESP 16; TEMP 36.6; O2SAT 95; BMI 38.2
[2018-09-29 14:03] VITALS: BP 92/49; PULSE 67; RESP 17; O2SAT 98
--- NOTE | 2018-09-29 14:11 | EKG12_ITS ---
Test Reason : NAUSEA/VOMITING Blood Pressure : / mmHG Vent. Rate : 058 BPM Atrial Rate : 058 BPM P-R Int : 162 ms QRS Dur : 074 ms QT Int : 430 ms P-R-T Axes : 037 079 032 degrees QTc Int : 422 ms Sinus bradycardia Nonspecific T wave abnormality Abnormal ECG Confirmed by HELDER ENCISO, RE ([id number]), purchase request editor NAZ DARLING ([id number]) on 10/01/2018 12:30:55 PM Referred By: BITA Confirmed By:JAZ PENDLETON MD
--- NOTE | 2018-09-29 14:31 | ED.DCSUM_ITS ---
History of Present Illness Chief Complaint: Nausea/Vomiting/Diarrhea Detail of Chief Complaint: I feel like crap Informant: Patient, Significant Other Onset: Yesterday Context: Sudden Onset Timing: Continuous Quality: Lightheadedness and feeling ill Location: Generalized Current Severity: Mild Maximum Severity: Moderate Worsened by: Orthostatic symptoms with standing Relieved by: Nothing Associated Symptoms: Vomiting and diarrhea Narrative: Patient is a 43-year-old woman who presents with bili ill with vomiting diarrhea minimal abdominal pain. No black or maroon stool. No mucus or bright red blood in the stool. No blood or coffee grounds in emesis. No ill contacts. No documented fever. No HEENT symptoms. No cardiac or respiratory symptoms. No food intolerance. Reports decreased urine output. Prior similar symptoms: No Recent Illness/Hospitalization: No - Past Medical History (1) ASCUS with positive high risk HPV Status: Acute Comment: Colposcopy schedule 04/30/18- records from [facility] scanned in (2) Ascites Status: Acute (3) Hypokalemia Status: Acute (4) Low serum cortisol level Status: Acute (5) Pleural effusion Status: Acute Comment: right side (6) Anxiety Status: Chronic Comment: on Xanax (7) Asthma Status: Chronic (8) Chronic cholecystitis Status: Chronic (9) Depression Status: Chronic (10) Hepatitis C Status: Chronic Comment: treated with Harvoni in the past (11) Polysubstance abuse Status: Chronic (12) Tobacco use Status: Chronic Past Medical History - Allergies and Home Meds Allergies/Adverse Reactions: Allergies No Known Allergies Allergy (Verified 09/29/18 13:36) Primary Care Physician: Sobeida Berger MD [Primary Care Provider] - Prior records reviewed: Yes Surgical History: - - BLTL, L arm ulnar nerve surgery, appendectomy. Lives: Spouse/ Significant Other Smoking Status: Current every day smoker Drugs: - - 3 of drug use - Family History Maternal Family History: Reports: Diabetes, High Cholesterol, Heart Disease, Hypertension Paternal Family History: Reports: Diabetes, High Cholesterol, Heart Disease, Hypertension Review of Systems General: Reports: Malaise. Denies: Chills, Fever, Subjective, Sweats, Weight loss Eyes: Denies: Visual changes - bilaterally, Blurred Vision - bilaterally ENT: Denies: Rhinorrhea, Sore throat Cardiovascular: Denies: Chest pain, Palpitations, Heart racing Respiratory: Denies: Dyspnea, Cough, Dyspnea on exertion, Orthopnea, Paroxysmal nocturnal dyspnea Gastrointestinal: Reports: Abdominal pain, Nausea, Vomiting, Diarrhea. Denies: Melena, Hematochezia Genitourinary: Denies: Dysuria, Hematuria, Frequency Musculoskeletal: Reports: Myalgias. Denies: Arthralgias, Neck pain, Back pain, Swelling, Extremity Pain Skin: Denies: Rash, Wounds Neurological: Denies: Headache, Weakness, Numbness Hematologic: Denies: Easy bruising, Easy bleeding Allergy: Denies: Uticaria, Swelling of the mouth Physical Exam Vital Signs/Narrative: Vital Signs Temp Pulse Resp BP Pulse Ox 09/29/18 14:03 67 17 92/49 L 98 09/29/18 13:36 97.8 F 74 16 111/71 95 Inital Vital Signs reviewed: Yes General: Well nourished, Well developed, No Acute Distress Head: Normocephalic, Atraumatic Eyes: Perrl, EOMI. Negative for: Pale conjunctiva ENT: No rhinorrhea, TM's clear, Dry mucous membranes. Negative for: Moist mucous membranes Neck: Supple, Nontender, No lymphadenopathy, No JVD Cardiovascular: Regular rate, Regular rhythm, No murmurs, Normal S1, Normal S2 Respiratory: No distress, CTA bilaterally, Chest nontender Abdomen: Soft, Nondistended, Normal bowel sounds, No masses, Tender, Hypoactive bowel sounds. Negative for: Nontender, Guarding, Rebound tenderness Back: Nontender, Normal Inspection. Negative for: CVA tenderness Extremities: Nontender, No edema Skin: Normal color, No rash. Negative for: Cyanosis, Diaphoresis Neurological: Alert, Oriented x3, Cranial nerves II-XII grossly intact, Normal Strength, Normal Sensation Psychological: Normal affect, Normal Mood Diagnostic/Tx/Re-eval Laboratory Results 09/29/18 09/29/18 14:25 14:25 WBC 13.0 H RBC 4.43 Hgb 11.7 L Hct 36.9 L MCV 83.3 MCH 26.4 L MCHC 31.7 L RDW 13.8 RDW Differential 40.8 Plt Count 277 MPV 9.7 Immature Gran % (Auto) 0.300 Neut % (Auto) 79.9 H Lymph % (Auto) 14.5 L Brantley % (Auto) 4.6 Eos % (Auto) 0.5 Baso % (Auto) 0.2 Absolute Neuts (auto) 10.4 H Absolute Lymphs (auto) 1.89 Total Counted Not Reportable Sodium 139 Potassium 4.1 Chloride 104 Carbon Dioxide 29.0 Anion Gap 6 BUN 11 Creatinine 0.59 Estim Creat Clear Calc 100.66 Est GFR (MDRD) Af Amer 142 Est GFR (MDRD) Non-Af 117 BUN/Creatinine Ratio 18.6 Glucose 117 H Calcium 9.0 - EKG Initial EKG Interpretation: Sinus Bradycardia - Ventricular rate 58. TX interval 160 ms. QRS duration is 74 ms. QT interval is 430 ms. Computer is reading does not get T wave abnormality's. I am in disagreement. - Medical Decision Making Initial blood pressure was 92/49. 2 L normal saline was ordered. Appropriate blood work was obtained to assess CO2/anion gap, electrolytes and renal function. CBC was obtained to assess H&H and white count as well. He was administered 4 mg of Zofran for her nausea and vomiting. If she passes p.o. challenge will administer Imodium for her diarrhea. Patient was reassessed at 1600. 1.5 L has infused. She looks much better. She does report feeling better. She also reports cough. The cough is nonproductive. Patient was told she has a viral infection and would need to run its course. ED Disposition - Plan for ED Patient: Disposition: Home or Assisted Living Diagnosis: Abdominal pain, vomiting, and diarrhea, Mild dehydration, Upper respiratory infection Instructions: VOMITING AND DIARRHEA, Nonspecific (Adult) Referrals: Sobeida Berger MD [Primary Care Provider] - 1 Week if not improving
[2018-09-29 14:36] LABS: Absolute Lymphocyte Count 1.89 X10^3/ul (0.83-4.51); Absolute Neutrophil Count 10.4 X10^3/uL (2.0-7.7); Basophil# 0.02 X10^3/uL; Basophil% 0.2 % (0-1); Eosinophil# 0.07 X10^3/uL; Eosinophils% 0.5 % (0-5); Hematocrit 36.9 % (37-47); Hemoglobin 11.7 g/dl (12.0-15.0); Lymphocyte # 1.89 X10^3/ul (4.0); Lymphocyte % 14.5 % (19-41); Mean Corp Hgb Conc 31.7 g/gl (32-36); Mean Corpuscular Hgb 26.4 pg (27.0-32.0); Mean Corpuscular Volume 83.3 fL (81-99); Mean Platelet Vol. 9.7 fl (6.2-12.0); Monocyte% 4.6 % (0-10); Neutrophil # 10.41 X10^3/uL (2.7-7.7); Neutrophil % 79.9 % (47-70); POSITIVE COUNT NO; POSITIVE DIFFERENTIAL NO; POSITIVE MORPHOLOGY NO; Platelet Count 277 K/mm3 (150-450); RBC Distribution Width CV 13.8 % (11.6-14.6); RBC Distribution Width SD 40.8 fl (35.1-43.9); Red Blood Count 4.43 M/mm3 (4.2-5.4)
[2018-09-29] MEDS: Ondansetron 4 MG/2 ML Vial IV (14:40)
[2018-09-29] MEDS: 0.9% Normal Saline 1,000 ML 1000 ML IV ×2 (14:40→16:02)
[2018-09-29 14:46] LABS: Anion Gap 6 (5-15); BUN 11 mg/dL (7-18); BUN/Creat Ratio 18.6 RATIO (10-20); Chloride 104 mmol/L (98-107); Creatinine, Serum 0.59 mg/dL (0.55-1.02); EST Glomerular Filtration Rate 117 mL/min (>60); Est Glom Filt Rate - Afr Amer 142 mL/min (>60); Estimated Creatinine Clearance 100.66 ml/min; Glucose 117 mg/dL (74-106); Potassium 4.1 mmol/L (3.5-5.1); Sodium Level 139 mmol/L (136-145)
[2018-09-29 16:30] VITALS: PULSE 63; RESP 15; O2SAT 98
[2018-09-29 16:56] VITALS: BP 117/98; PULSE 66; RESP 17; O2SAT 98
== END 2018-09-29 16:56 | disposition home or self-care (01) ==
PROVIDERS: Emergency Provider Emergency Medicine; Family Provider Internal Medicine; PCP Internal Medicine
DX: R10.9 Unspecified abdominal pain (principal); R11.2 Nausea with vomiting, unspecified; R19.7 Diarrhea, unspecified; J06.9 Acute upper respiratory infection, unspecified; E86.0 Dehydration; B18.2 Chronic viral hepatitis C; R00.1 Bradycardia, unspecified; J45.909 Unspecified asthma, uncomplicated; F32.9 Major depressive disorder, single episode, unspecified; F41.9 Anxiety disorder, unspecified; F17.200 Nicotine dependence, unspecified, uncomplicated; Z79.899 Other long term (current) drug therapy
CPT/HCPCS: 80048; 85025; 93005; 96361; 96374; 99284; J7030; J2405

== ENCOUNTER 2018-10-06 11:23 | Emergency (ER) | payer MEDICAID, SELFPAY ==
[2018-10-06 11:24] VITALS: BP 132/83; PULSE 87; RESP 17; TEMP 36.8; O2SAT 95; BMI 36.7
[2018-10-06 11:58] VITALS: BP 109/68; BP 111/75; BP 112/68; PULSE 74; PULSE 75; PULSE 76
[2018-10-06] MEDS: proMETHazine 25 MG/ML Syringe 12.5 MG IV (12:05)
[2018-10-06] MEDS: 0.9% Normal Saline 1,000 ML 1000 ML IV (12:05)
--- NOTE | 2018-10-06 12:10 | ED.VISSUMM ---
- ER Visit Summary Date of Service: 10/06/18 Chief Complaint: Vomiting and diarrhea History of Present Illness: The patient is a 43 F with a history of irritable bowel disease states she was seen on 29 September diagnosed with a viral infection. She states that she has had vomiting diarrhea now for a total of 3 weeks. She has been using all of her Zofran. States she took a Phenergan but vomited before she left the house. She is a smoker. History of hepatitis C and SVT. Patient states she feels very dizzy notes a generalized headache. She attempted to work recently but could not because she still felt poorly. She states she was going to go see her primary care doctor yesterday but did not because she felt too poorly. She notes a generalized upper abdominal pain. She denies any history of pancreatitis. She is had an appendectomy and a tubal ligation. Physical Examination: Afebrile vital signs are stable Gen: Well-nourished well-developed Head: Normocephalic atraumatic Eyes: Perrl EOMI ENT: TMs clear no rhinorrhea moist mucous membranes Neck: Supple no lymphadenopathy no JVD nontender CVS: Regular rate rhythm no murmurs normal S1-S2 Respiratory: No distress clear to auscultation bilaterally chest nontender Abdomen: Soft oddly tender to palpation without guarding or rebound nondistended normal bowel sounds no masses Back: Nontender Extremity: Nontender no edema Skin: Normal color no rash Neuro: alert orientated ?3 CN II-XII intact normal strength sensation Psych: Normal affect normal mood Test Results: CBC CMP and lipase were normal. Emergency Department Course and Treatment: Patient is orthostatic negative. She received IV fluids and Phenergan. She will be discharged home with continued supportive care and have asked that she follow-up with her doctors. Impression: 1. Vomiting and diarrhea 2. Abdominal pain This note was generated with Gab[employer] dictation software. It may contain incorrect words, spelling, and punctuation that were not noted in review of the chart prior to signing ED Disposition - Plan for ED Patient: Disposition: Home or Assisted Living Instructions: VOMITING AND DIARRHEA, Nonspecific (Adult) Prescriptions: proMETHazine tablet [Phenergan] 25 mg PO Q6H PRN PRN #15 tab PRN Reason: Nausea Prescription Printed Referrals: Sobeida Berger MD [Primary Care Provider] - As soon as possible
[2018-10-06 12:30] LABS: ALB/GLOB Ratio 0.8 RATIO (0.9-2.4); AST(SGOT) 13 U/L (15-37); Alanine Aminotransfer ALT/SGPT 19 U/L (13-56); Albumin, Serum 3.8 g/dL (3.2-5.0); Alkaline Phosphatase 104 U/L (45-117); Anion Gap 4 (5-15); BUN 11 mg/dL (7-18); BUN/Creat Ratio 15.2 RATIO (10-20); Calcium,Total 9.5 mg/dL (8.5-10.1); Chloride 103 mmol/L (98-107); Creatinine, Serum 0.72 mg/dL (0.55-1.02); EST Glomerular Filtration Rate 93 mL/min (>60); Est Glom Filt Rate - Afr Amer 112 mL/min (>60); Estimated Creatinine Clearance 82.48 ml/min; Globulin 4.5 g/dL (2.2-4.2); Glucose 92 mg/dL (74-106); Lipase 100 U/L (73-393); Potassium 4.4 mmol/L (3.5-5.1); Protein, Total 8.3 g/dL (6.4-8.2); Sodium Level 133 mmol/L (136-145)
[2018-10-06 12:33] LABS: Absolute Lymphocyte Count 1.87 X10^3/uL (0.83-4.51); Absolute Neutrophil Count 7.3 X10^3/uL (2.0-7.7); Basophil# 0.04 X10^3/uL; Basophil% 0.4 % (0-1); Eosinophil# 0.09 X10^3/uL; Eosinophils% 0.9 % (0-5); Hematocrit 40.1 % (37-47); Hemoglobin 12.7 g/dL (12.0-15.0); Lymphocyte # 1.87 X10^3/ul (4.0); Mean Corp Hgb Conc 31.7 g/dL (32-36); Mean Corpuscular Hgb 26.8 pg (27.0-32.0); Mean Corpuscular Volume 84.6 fL (81-99); Mean Platelet Vol. 9.7 fl (6.2-12.0); Monocyte# 0.54 X10^3/uL; Monocyte% 5.5 % (0-10); NRBC Flagged by Analyzer 0 % (0-5); Neutrophil # 7.26 X10^3/uL (2.7-7.7); Neutrophil % 73.7 % (47-70); Platelet Count 297 K/mm3 (150-450); RBC Distribution Width CV 13.6 % (11.6-14.6); RBC Distribution Width SD 41.8 fl (35.1-43.9); Red Blood Count 4.74 M/mm3 (4.2-5.4); White Blood Count 9.9 K/mm3 (4.4-11.0)
== END 2018-10-06 13:57 | disposition home or self-care (01) ==
PROVIDERS: Emergency Provider Emergency Medicine; Family Provider Internal Medicine; PCP Internal Medicine
DX: R11.2 Nausea with vomiting, unspecified (principal); R10.9 Unspecified abdominal pain; R19.7 Diarrhea, unspecified; R51 Headache; I10 Essential (primary) hypertension; K58.9 Irritable bowel syndrome, unspecified; F17.200 Nicotine dependence, unspecified, uncomplicated; Z79.899 Other long term (current) drug therapy; Z86.19 Personal history of other infectious and parasitic diseases
CPT/HCPCS: 80053; 83690; 85025; 96374; 99284; J7030

== ENCOUNTER 2019-09-27 15:02 | Emergency (ER) | payer MEDICAID, SELFPAY ==
[2019-09-27 15:04] VITALS: BP 142/78; PULSE 86; RESP 15; TEMP 36.6; O2SAT 96; BMI 38.8
--- NOTE | 2019-09-27 16:15 | EKG12_ITS ---
Test Reason : Blood Pressure : / mmHG Vent. Rate : 068 BPM Atrial Rate : 068 BPM P-R Int : 164 ms QRS Dur : 078 ms QT Int : 408 ms P-R-T Axes : 031 070 034 degrees QTc Int : 433 ms Normal sinus rhythm with sinus arrhythmia Normal ECG Confirmed by AYO ENCISO, JAKUB ([id number]), make up editor NAZ DARLING ([id number]) on 09/29/2019 1:25:24 PM Referred By: TYE Confirmed By:JAKUB ROLLINS MD
--- NOTE | 2019-09-27 16:29 | ED.VISSUMM ---
- ER Visit Summary Date of Service: 09/27/19 Chief Complaint: Shortness of breath, cough History of Present Illness: The patient is a 44 F presenting with shortness of breath, cough. She states these symptoms started approximately 1 month ago. She has a cough that is occasionally productive of sputum. She has nausea with no vomiting. She has pain with inspiration. She has back pain with cough. She denies fever. Denies sick contacts. Denies known exposure to COVID. She has been using her inhaler at home. She recently traveled here from [place] but she states they stopped multiple times. No history of PE/DVT. She is a smoker. Physical Examination: Vitals are stable. Patient is afebrile. Alert no acute distress. HEENT exam is unremarkable. Neck is supple. Lungs are clear and equal bilaterally. Heart is regular rate and rhythm. Abdomen is soft nontender nondistended. Extremities are unremarkable. Skin is warm and dry. No focal neurologic deficit. Remainder of exam is unremarkable. Emergency Department Course and Treatment: EKG is sinus rhythm rate of 68 with no acute ischemic changes. Chest x-ray showed no acute process. CBC, chemistries unremarkable. Troponin is negative. D-dimer negative. Patient was initially given a DuoNeb. On reevaluation, she is resting comfortably. Her main complaint is back pain with coughing. Delta troponin was also negative. I feel her pain is likely musculoskeletal. She was given a prescription for Naprosyn and Flexeril. Advised to follow-up with her primary care physician. Advised return to ED for worsening complaints. Disposition: Discharge home Impression: Dyspnea, chest wall pain This note was generated with [employer] dictation software. It may contain incorrect words, spelling, and punctuation that were not noted in review of the chart prior to signing ED Disposition - Plan for ED Patient: Instructions: ED Dyspnea Prescriptions: cycloBENZAPRine HCl [Flexeril] 10 mg PO TID PRN #20 tab PRN Reason: Muscle Spasm Prescription Printed Naproxen [Naprosyn] 500 mg PO BID PRN #20 tab Prescription Printed Referrals: Sobeida Berger MD [Primary Care Provider] - Radha Sahni MD [STAFF PHYSICIAN] -
[2019-09-27 16:44] VITALS: PULSE 89; RESP 20
[2019-09-27] MEDS: Ipratropium/Albuterol Sulfate 3 ML AMPUL.NEB INHALATION (16:44)
[2019-09-27 17:01] VITALS: O2SAT 97
--- NOTE | 2019-09-27 17:04 | RAD_ITS ---
STUDY: X-RAY CHEST REASON FOR EXAM: Female, 44 years old. SOB AND COUGH FOR A MONTH TECHNIQUE: AP portable COMPARISON: January 30, 2018 FINDINGS: The lungs are clear and expanded. There is no demonstrated pleural abnormality. Normal size heart. Normal mediastinum and violetta. Normal visualized pulmonary arteries. Normal visualized aortic arch and descending thoracic aorta. Normal visualized thoracic spine. Normal visualized ribs, clavicles, and shoulders. There is no demonstrated abnormality of the visualized soft tissue structures of the upper abdomen. No change since prior study RAD/Chest 1 View (Portable) IMPRESSION: No acute cardiopulmonary pathology Electronically Signed: Jerzy Varghese MD at 17:22 EDT , Service support ,
[2019-09-27] MEDS: Ketorolac 30 MG/ML Syringe IV (17:08)
[2019-09-27 17:22] LABS: Absolute Lymphocyte Count 2.73 X10^3/uL (0.83-4.51); Absolute Neutrophil Count 5.9 X10^3/uL (2.0-7.7); Basophil# 0.02 X10^3/uL; Basophil% 0.2 % (0-1); Eosinophil# 0.06 X10^3/uL; Eosinophils% 0.6 % (0-5); Hematocrit 37.7 % (37-47); Hemoglobin 11.9 g/dL (12.0-15.0); Lymphocyte # 2.73 X10^3/ul (4.0); Lymphocyte % 29.2 % (19-41); Mean Corp Hgb Conc 31.6 g/dL (32-36); Mean Corpuscular Hgb 28.7 pg (27.0-32.0); Mean Corpuscular Volume 90.8 fL (81-99); Mean Platelet Vol. 9.8 fl (6.2-12.0); Monocyte# 0.61 X10^3/uL; Monocyte% 6.5 % (0-10); NRBC Flagged by Analyzer 0 % (0-5); Neutrophil # 5.87 X10^3/uL (2.7-7.7); Neutrophil % 62.9 % (47-70); Platelet Count 277 K/mm3 (150-450); RBC Distribution Width CV 14.1 % (11.6-14.6); RBC Distribution Width SD 46.6 fl (35.1-43.9); Red Blood Count 4.15 M/mm3 (4.2-5.4); White Blood Count 9.4 K/mm3 (4.4-11.0)
[2019-09-27 17:41] LABS: Anion Gap 7 (5-15); BUN 9 mg/dL (7-18); BUN/Creat Ratio 15.1 RATIO (10-20); Calcium,Total 8.9 mg/dL (8.5-10.1); Chloride 105 mmol/L (98-107); EST Glomerular Filtration Rate 115 mL/min (>60); Est Glom Filt Rate - Afr Amer 140 mL/min (>60); Estimated Creatinine Clearance 97.95 ml/min; Glucose 78 mg/dL (74-106); Potassium 4.4 mmol/L (3.5-5.1); Sodium Level 138 mmol/L (136-145)
[2019-09-27 17:45] LABS: D-Dimer Quantitative (DVT/PE) < 0.27 FEU/ug/m (0.27-0.49)
[2019-09-27 19:00] VITALS: BP 142/76; PULSE 82; RESP 17; O2SAT 97
--- NOTE | 2019-09-27 20:59 | ED.DEP ---
ED Disposition - Plan for ED Patient: Instructions: ED Dyspnea Prescriptions: cycloBENZAPRine HCl [Flexeril] 10 mg PO TID PRN #20 tablet PRN Reason: Muscle Spasm Naproxen [Naprosyn] 500 mg PO BID PRN #20 tablet Referrals: Sobeida Berger MD [Primary Care Provider] - Radha Sahni MD [STAFF PHYSICIAN] -
== END 2019-09-27 21:15 | disposition home or self-care (01) ==
LOC: ED 15:53
PROVIDERS: Emergency Provider Emergency Medicine; PCP Internal Medicine
DX: R06.02 Shortness of breath (principal); R07.89 Other chest pain; J44.9 Chronic obstructive pulmonary disease, unspecified; F17.200 Nicotine dependence, unspecified, uncomplicated
CPT/HCPCS: 36415; 71045; 80048; 84484; 85025; 85379; 93005; 94640; 96374; 99284; A4216

== ENCOUNTER 2019-10-19 12:05 | Emergency (ER) | payer MEDICAID, SELFPAY ==
[2019-10-19 12:06] VITALS: BP 130/84; PULSE 79; RESP 16; TEMP 36.4; O2SAT 94; BMI 39.8
--- NOTE | 2019-10-19 12:27 | EKG12_ITS ---
Test Reason : COUGH Blood Pressure : / mmHG Vent. Rate : 062 BPM Atrial Rate : 062 BPM P-R Int : 170 ms QRS Dur : 084 ms QT Int : 418 ms P-R-T Axes : 039 075 029 degrees QTc Int : 424 ms Normal sinus rhythm Low voltage QRS Borderline ECG Confirmed by AYO ENCISO, JAKUB ([id number]), medical transcription editor TELLO SCHUMACHER ([id number]) on 10/25/2019 8:46:57 AM Referred By: DARY/TITA Confirmed By:JAKUB ROLLINS MD
--- NOTE | 2019-10-19 12:28 | RAD_ITS ---
STUDY: X-RAY CHEST REASON FOR EXAM: Female, 44 years old. Cough, nausea, dizziness TECHNIQUE: Single AP portable view of the chest. COMPARISON: Comparison is made with prior study dated 09/27/2019. FINDINGS: EKG like to proceed. The lungs are clear and expanded. There is no demonstrated pleural abnormality. Normal size heart. Normal mediastinum and violetta. Normal visualized pulmonary arteries. Normal visualized aortic arch and descending thoracic aorta. Normal visualized thoracic spine. Normal visualized ribs, clavicles, and shoulders. There is no demonstrated abnormality of the visualized soft tissue structures of the upper abdomen. RAD/Chest 1 View (Portable) IMPRESSION: Normal x-ray examination of the chest. Electronically Signed: Dmitri Ramesh, at 13:21 EDT , Service support ,
--- NOTE | 2019-10-19 12:47 | ED.DCSUM_ITS ---
History of Present Illness Chief Complaint: Cough Informant: Patient Narrative: Patient is a 44-year-old female who presents to the emergency department for cough, lightheaded and nausea/vomiting. Her cough has been present over the past 2 weeks. She had been taking Mucinex for this which has been helping. Cough is been nonproductive. No known sick contacts. She does have a history of COPD and is a current every day smoker. She denies associated fever/chills. She developed nausea and vomiting yesterday. She states she is thrown up twice today. Vomit contacts were what she previously ate. No associated diarrhea or abdominal pain. No chest pain or shortness of breath. She denies any headache or neck stiffness. No rashes. She has been feeling lightheaded. Denies any palpitations. No leg swelling or calf pain. No history of DVT/PE. No prolonged periods of immobilization. She has been having some lower back pain that is worse with movements. Past Medical History - Allergies and Home Meds Allergies/Adverse Reactions: Allergies No Known Allergies Allergy (Verified 10/19/19 12:05) Primary Care Physician: Sobeida Berger MD [Primary Care Provider] - 2 Days Prior records reviewed: Yes Past Medical History: - - COPD, anxiety/depression Surgical History: - - BLTL, L arm ulnar nerve surgery, appendectomy. Smoking Status: Current every day smoker - Family History Maternal Family History: Reports: Diabetes, High Cholesterol, Heart Disease, Hypertension Paternal Family History: Reports: Diabetes, High Cholesterol, Heart Disease, Hypertension Review of Systems All systems negative except as indicated General: Denies: Chills, Fever, Sweats Eyes: Denies: Visual changes - bilaterally, Diplopia ENT: Denies: Rhinorrhea, Sore throat Cardiovascular: Denies: Chest pain, Palpitations Respiratory: Reports: Cough. Denies: Dyspnea, Dyspnea on exertion Gastrointestinal: Reports: Nausea, Vomiting. Denies: Abdominal pain, Diarrhea, Melena, Hematochezia Genitourinary: Denies: Dysuria, Hematuria, Frequency Musculoskeletal: Denies: Back pain, Extremity Pain Skin: Denies: Rash, Wounds Neurological: Denies: Headache, Weakness, Numbness Physical Exam Vital Signs/Narrative: Vital Signs Temp Pulse Resp BP Pulse Ox 10/19/19 12:06 97.6 F L 79 16 130/84 H 94 Inital Vital Signs reviewed: Yes General: Well nourished, Well developed, No Acute Distress Head: Normocephalic, Atraumatic Eyes: Perrl, EOMI ENT: Moist mucous membranes, No rhinorrhea Neck: Supple, Nontender Cardiovascular: Regular rate, Regular rhythm, No murmurs Respiratory: No distress, CTA bilaterally, Chest nontender Abdomen: Soft, Nontender, Nondistended, Normal bowel sounds Back: Normal Inspection, -. Negative for: CVA tenderness, Spinal tenderness Extremities: Nontender, No edema. Negative for: Edema, Calf Tenderness Skin: Normal color, No rash Neurological: Alert, Oriented x3, Cranial nerves II-XII grossly intact, Normal Strength, Normal Sensation Psychological: Normal affect, Normal Mood Diagnostic/Tx/Re-eval - EKG Initial EKG Interpretation: - - Rate of 62 bpm in sinus rhythm. Normal intervals. Normal axis. No ST elevations or depressions appreciated. No T wave abnormalities. No prior EKG for comparison. - Medical Decision Making Patient presents to the emergency department for cough and nausea/vomiting. She did have some lightheadedness associated with this. Upon arrival to the emergency department vital signs within normal limits. Physical exam is benign. With a given cough will check a coronavirus test as well as basic lab work, EKG and chest x-ray. EKG did not show any signs of ischemia or arrhythmia. No areas of consolidation on chest x-ray. Lab work did not show any acute significant abnormality. I did discuss findings with patient. On reexamination she is feeling much better after the Zofran. She does want to be discharged home at this time. Given the fact that her cough is last for 2 weeks and she is a current smoker with a history of COPD will put her on a short burst of prednisone. She is also requesting Zofran for home treatment. Advised patient on smoking sensation. She is to follow-up with her PCP. She can return to the emerge department anytime for concerning symptoms including worsening shortness of breath or developing any chest pain. She understands and is agreeable this plan. Will discharge home in stable condition. ED Disposition - Plan for ED Patient: Disposition: Home or Assisted Living Diagnosis: COPD exacerbation, Cough, Nausea and vomiting Instructions: ED COPD Flare, ED Nausea Vomiting Adult Prescriptions: Prednisone [Deltasone] 40 mg PO DAILY 5 Days #10 tab Transmission Status: Received by [facility] #[facility] Ondansetron [Zofran Odt] 4 mg PO Q8H PRN PRN #10 tab PRN Reason: Nausea Transmission Status: Received by [facility] Referrals: Sobeida Berger MD [Primary Care Provider] - 2 Days
[2019-10-19] MEDS: Ondansetron 4 MG/2 ML Vial IV (13:00)
[2019-10-19 13:07] LABS: Absolute Lymphocyte Count 2.16 X10^3/uL (0.83-4.51); Absolute Neutrophil Count 6.5 X10^3/uL (2.0-7.7); Basophil# 0.03 X10^3/uL; Basophil% 0.3 % (0-1); Eosinophil# 0.06 X10^3/uL; Eosinophils% 0.6 % (0-5); Hematocrit 37.9 % (37-47); Hemoglobin 12.2 g/dL (12.0-15.0); Lymphocyte # 2.16 X10^3/ul (4.0); Lymphocyte % 23.3 % (19-41); Mean Corp Hgb Conc 32.2 g/dL (32-36); Mean Corpuscular Hgb 28.8 pg (27.0-32.0); Mean Corpuscular Volume 89.6 fL (81-99); Mean Platelet Vol. 9.6 fl (6.2-12.0); Monocyte# 0.53 X10^3/uL; Monocyte% 5.7 % (0-10); NRBC Flagged by Analyzer 0 % (0-5); Neutrophil # 6.47 X10^3/uL (2.7-7.7); Neutrophil % 69.7 % (47-70); Platelet Count 294 K/mm3 (150-450); RBC Distribution Width CV 13.6 % (11.6-14.6); RBC Distribution Width SD 44.2 fl (35.1-43.9); Red Blood Count 4.23 M/mm3 (4.2-5.4); White Blood Count 9.3 K/mm3 (4.4-11.0)
[2019-10-19 13:22] LABS: ALB/GLOB Ratio 0.8 RATIO (0.9-2.4); AST(SGOT) 22 U/L (15-37); Alanine Aminotransfer ALT/SGPT 27 U/L (13-56); Albumin, Serum 3.7 g/dL (3.2-5.0); Alkaline Phosphatase 90 U/L (45-117); Anion Gap 3 (5-15); BUN 12 mg/dL (7-18); BUN/Creat Ratio 17.2 RATIO (10-20); Calcium,Total 8.9 mg/dL (8.5-10.1); Chloride 101 mmol/L (98-107); EST Glomerular Filtration Rate 96 mL/min (>60); Est Glom Filt Rate - Afr Amer 116 mL/min (>60); Estimated Creatinine Clearance 83.95 ml/min; Globulin 4.5 g/dL (2.2-4.2); Glucose 84 mg/dL (74-106); Potassium 4.1 mmol/L (3.5-5.1); Protein, Total 8.2 g/dL (6.4-8.2); Sodium Level 134 mmol/L (136-145)
[2019-10-19 14:10] VITALS: BP 110/62; PULSE 61; RESP 17; O2SAT 97
[2019-10-19 14:24] VITALS: BP 111/62; PULSE 60; RESP 12; O2SAT 99
== END 2019-10-19 14:29 | disposition home or self-care (01) ==
PROVIDERS: Emergency Provider Emergency Medicine; PCP Internal Medicine
DX: J44.1 Chronic obstructive pulmonary disease with (acute) exacerbation (principal); R11.2 Nausea with vomiting, unspecified; F32.9 Major depressive disorder, single episode, unspecified; F41.9 Anxiety disorder, unspecified; F17.200 Nicotine dependence, unspecified, uncomplicated
CPT/HCPCS: 71045; 80053; 85025; 87635; 93005; 94799; 96361; 96374; 99285; J2405; U0003

== ENCOUNTER 2019-12-01 10:02 | Emergency (ER) | payer MEDICAID, SELFPAY ==
[2019-12-01 10:03] VITALS: BP 132/104; PULSE 84; RESP 17; TEMP 36.2; O2SAT 97; BMI 38.6
--- NOTE | 2019-12-01 10:14 | ED.VIS.GEN ---
History of Present Illness Chief Complaint: Other, Pain/Inj Narrative: Patient presenting for evaluation secondary to neck pain. Patient reports that over the course the last 3 days she has been dealing with neck pain. Is in her lower neck and will go somewhat over to her right shoulder. She denies any numbness or weakness. Patient denies that there was any sort of injury or increased usage of her arms or neck recently. Patient does report that she has had pain in her neck in the past and has required injections. She states that she took tramadol last night of somebody else's and it helped mildly. Additionally the patient is stating that she is developing a cold sore on her lower lip and is requesting a prescription for Valtrex. Past Medical History - Allergies and Home Meds Allergies/Adverse Reactions: Allergies No Known Allergies Allergy (Verified 12/01/19 10:03) Primary Care Physician: Sobeida Berger MD [Primary Care Provider] - Past Medical History: - - Has history of neck pain. Past history of polysubstance abuse. Hepatitis C. Surgical History: - - BLTL, L arm ulnar nerve surgery, appendectomy. Smoking Status: Current every day smoker - Family History Maternal Family History: Reports: Diabetes, High Cholesterol, Heart Disease, Hypertension Paternal Family History: Reports: Diabetes, High Cholesterol, Heart Disease, Hypertension Review of Systems All systems negative except as indicated General: Denies: Chills, Fever, Sweats Eyes: Denies: Visual changes - bilaterally, Diplopia ENT: Denies: Rhinorrhea, Sore throat Cardiovascular: Denies: Chest pain, Palpitations Respiratory: Denies: Dyspnea, Cough, Dyspnea on exertion Gastrointestinal: Denies: Abdominal pain, Nausea, Vomiting, Diarrhea, Melena, Hematochezia Genitourinary: Denies: Dysuria, Hematuria, Frequency Musculoskeletal: Reports: Neck pain Skin: Reports: Rash Neurological: Denies: Headache, Weakness, Numbness Physical Exam Vital Signs/Narrative: Vital Signs Temp Pulse Resp BP Pulse Ox 12/01/19 10:03 97.2 F L 84 17 132/104 H 97 Inital Vital Signs reviewed: Yes General: Well nourished, Well developed, No Acute Distress Head: Normocephalic, Atraumatic Eyes: Perrl, EOMI ENT: Moist mucous membranes, No rhinorrhea, - - Small vesicle noted on the patient's lower lip just to the right of midline. Patient has some ecchymosis under her right eye which she states is from an old injury from a bungee cord Neck: Supple, - - Tenderness palpation noted over the lower C-spine and the right paraspinal region. Normal range of motion of the neck, somewhat painful but not limited. Cardiovascular: Regular rate, Regular rhythm, No murmurs Respiratory: No distress, CTA bilaterally, Chest nontender Abdomen: Soft, Nontender, Nondistended, Normal bowel sounds Back: Nontender, Normal Inspection Extremities: Nontender, No edema Skin: Normal color, No rash Neurological: Alert, Oriented x3, Cranial nerves II-XII grossly intact, Normal Strength, Normal Sensation, - - 5 out of 5 strength at shoulder elbow wrist and hand. Normal sensation over all dermatomes. 2+ brachioradialis biceps and triceps reflexes bilaterally. Normal distal pulses Psychological: Normal affect, Normal Mood Diagnostic/Tx/Re-eval - Medical Decision Making Patient presented secondary to neck pain. She has normal neurologic exam. This really seems to be located in the neck in the paraspinal muscles, more likely a strain does not really seem to have a significant radicular component to it. Patient will be prescribed a course of Naprosyn and Flexeril. Patient will be provided with a course of Valtrex for her cold sore. Patient was discharged. ED Disposition - Plan for ED Patient: Diagnosis: Cervical strain, Cold sore Instructions: ED Sprain Strain Neck, Cold Sore Prescriptions: cycloBENZAPRine HCl [Flexeril] 10 mg PO TID PRN #20 tab PRN Reason: Muscle Spasm Prescription Printed Naproxen [Naprosyn] 500 mg PO BID PRN #20 tab Prescription Printed Valacyclovir HCl [Valtrex] 2,000 mg PO BID #4 tab Prescription Printed Referrals: Sobeida Berger MD [Primary Care Provider] - Keep Dharmesh appointment
[2019-12-01 10:57] VITALS: PULSE 88; RESP 17; O2SAT 96
== END 2019-12-01 10:59 | disposition home or self-care (01) ==
PROVIDERS: Emergency Provider Emergency Medicine; PCP Internal Medicine
DX: S16.1XXA Strain of muscle, fascia and tendon at neck level, initial encounter (principal); X58.XXXA Exposure to other specified factors, initial encounter; B00.1 Herpesviral vesicular dermatitis; F17.200 Nicotine dependence, unspecified, uncomplicated
CPT/HCPCS: 99282

== ENCOUNTER 2020-02-25 20:40 | Emergency (ER) | payer MEDICAID, SELFPAY ==
[2020-02-25 20:41] VITALS: BP 137/73; PULSE 79; RESP 16; TEMP 36.2; O2SAT 98; BMI 40.6
[2020-02-25] MEDS: Ibuprofen 600 MG Tablet PO (21:06)
[2020-02-25] MEDS: Ondansetron 8 MG Tablet PO (21:06)
--- NOTE | 2020-02-25 21:10 | RAD_ITS ---
STUDY: X-RAY CHEST REASON FOR EXAM: Female, 44 years old. COUGH TECHNIQUE: Frontal view of the chest COMPARISON: 19 October 2019 FINDINGS: The lungs are clear and expanded. There is no demonstrated pleural abnormality. Normal size heart. Normal mediastinum and violetta. Normal visualized pulmonary arteries. Normal visualized aortic arch and descending thoracic aorta. Normal visualized thoracic spine. Normal visualized ribs, clavicles, and shoulders. There is no demonstrated abnormality of the visualized soft tissue structures of the upper abdomen. RAD/Chest 1 View (Portable) IMPRESSION: Normal x-ray examination of the chest. Electronically Signed: Shameka Pierce, at 21:36 EST Tel , Service support ,
--- NOTE | 2020-02-25 21:11 | ED.DCSUM_ITS ---
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 She has history of COPD that stable using her home inhalers she has no history of DC PE DVT no abdominal pain bowel bladder habits have been normal she is eating and drinking well Past Medical History - Allergies and Home Meds Allergies/Adverse Reactions: Allergies No Known Allergies Allergy (Verified 02/25/20 20:43) Primary Care Physician: Sobeida Berger MD [STAFF PHYSICIAN] - Past Medical History: - Surgical History: - - BLTL, L arm ulnar nerve surgery, appendectomy. Smoking Status: Current every day smoker - Family History Maternal Family History: Reports: Diabetes, High Cholesterol, Heart Disease, Hypertension Paternal Family History: Reports: Diabetes, High Cholesterol, Heart Disease, Hypertension Review of Systems ROS: - COPD General: Denies: Chills, Fever, Sweats Eyes: Denies: Visual changes - bilaterally, Diplopia ENT: Denies: Rhinorrhea, Sore throat Cardiovascular: Denies: Chest pain, Palpitations Respiratory: Reports: Cough. Denies: Dyspnea, Dyspnea on exertion Gastrointestinal: Denies: Abdominal pain, Nausea, Vomiting, Diarrhea, Melena, Hematochezia Genitourinary: Denies: Dysuria, Hematuria, Frequency Musculoskeletal: Reports: Myalgias. Denies: Back pain, Extremity Pain Skin: Denies: Rash, Wounds Neurological: Denies: Headache, Weakness, Numbness Physical Exam Vital Signs/Narrative: Vital Signs Temp Pulse Resp BP Pulse Ox 02/25/20 20:41 97.1 F L 79 16 137/73 H 98 General: Well nourished, Well developed, No Acute Distress Head: Normocephalic, Atraumatic Eyes: Perrl, EOMI ENT: Moist mucous membranes, No rhinorrhea Neck: Supple, Nontender Cardiovascular: Regular rate, Regular rhythm, No murmurs Respiratory: No distress, CTA bilaterally, Chest nontender Abdomen: Soft, Nontender, Nondistended, Normal bowel sounds Back: Nontender, Normal Inspection Extremities: Nontender, No edema Skin: Normal color, No rash Neurological: Alert, Oriented x3, Cranial nerves II-XII grossly intact, Normal Strength, Normal Sensation Psychological: Normal affect, Normal Mood Diagnostic/Tx/Re-eval - Medical Decision Making His lungs are clear clinically she looks well her vital signs are normal her pulse ox is 96% on room air Given her body aches the runny nose the cough the concept of loss of taste and smell concern for coronavirus she will be tested through outpatient hospital protocol, chest x-ray is obtained 1 view to my review shows nothing acute lungs look clear soft tissue within normal range, radiology reviewed concur in general see those reports she is given oral medications for the nausea and body aches which she took she is comfortable with discharge home to follow-up with her outpatient providers and to use the home hospital protocol for Covid self-isolation and return for change in symptoms otherwise follow-up with providers Home stable Final impression URI with myalgias concern for coronavirus 19 ED Disposition - Plan for ED Patient: Diagnosis: COVID-19 Instructions: Coronavirus Disease 2019 (COVID-19): Overview, Coronavirus Disease 2019 (COVID-19): Caring for Yourself or Others Referrals: Sobeida Berger MD [STAFF PHYSICIAN] -
[2020-02-25 22:06] VITALS: BP 118/81; PULSE 61; RESP 20; O2SAT 98
== END 2020-02-25 22:07 | disposition home or self-care (01) ==
LOC: ED 21:43
PROVIDERS: Emergency Provider Emergency Medicine; PCP Family Medicine
DX: U07.1 COVID-19 (principal); J06.9 Acute upper respiratory infection, unspecified; J44.9 Chronic obstructive pulmonary disease, unspecified; F17.200 Nicotine dependence, unspecified, uncomplicated
CPT/HCPCS: 71045; 87635; 99283; U0003

== ENCOUNTER 2020-03-20 11:31 | Emergency (ER) | payer MEDICAID, SELFPAY ==
[2020-03-20 11:32] VITALS: BP 147/73; PULSE 82; RESP 16; TEMP 36.3; O2SAT 98; BMI 39.8
--- NOTE | 2020-03-20 12:06 | ED.DCSUM_ITS ---
History of Present Illness Chief Complaint: Lower Extremity Injury Narrative: 44-year-old female presenting with foot pain. This is on the dorsum of her left foot. It started 2 days ago while she was working. She states it herman. She states it keeps getting worse. She was told she might have gout so she came to the ER. Patient has not had any trauma. She is ambulatory with antalgic gait. - Past Medical History (1) Low serum cortisol level Status: Chronic (2) Anxiety Status: Chronic Comment: on Xanax Past Medical History - Allergies and Home Meds Allergies/Adverse Reactions: Allergies No Known Allergies Allergy (Verified 03/20/20 11:34) Primary Care Physician: Jerzy Oviedo MD [NON-STAFF] - Prior records reviewed: Yes Surgical History: noncontributory, - - BLTL, L arm ulnar nerve surgery, appendectomy. Lives: Alone Smoking Status: Current every day smoker Alcohol: None Drugs: None - Family History Maternal Family History: Reports: Diabetes, High Cholesterol, Heart Disease, Hypertension Paternal Family History: Reports: Diabetes, High Cholesterol, Heart Disease, Hypertension Review of Systems General: Denies: Chills, Fever, Sweats Eyes: Denies: Visual changes - bilaterally, Diplopia ENT: Denies: Rhinorrhea, Sore throat Cardiovascular: Denies: Chest pain, Palpitations Respiratory: Denies: Dyspnea, Cough, Dyspnea on exertion Gastrointestinal: Denies: Abdominal pain, Nausea, Vomiting, Diarrhea, Melena, Hematochezia Genitourinary: Denies: Dysuria, Hematuria, Frequency Musculoskeletal: Reports: Extremity Pain - Left foot pain. Denies: Swelling Skin: Denies: Rash, Wounds Physical Exam Vital Signs/Narrative: Vital Signs Temp Pulse Resp BP Pulse Ox 03/20/20 11:32 97.4 F L 82 16 147/73 H 98 General: Obese, No Acute Distress Head: Normocephalic, Atraumatic Eyes: Perrl, EOMI ENT: Moist mucous membranes, No rhinorrhea Cardiovascular: Regular rate, Regular rhythm, No murmurs Respiratory: No distress, CTA bilaterally Abdomen: Soft, Nontender, Nondistended Extremities: - - Is palpation over the dorsum of the left foot extending into the great toe. No erythema, deformity, abrasions or lacerations.. Negative for: Edema, Calf Tenderness Skin: Normal color, No rash Neurological: Alert, Oriented x3 Psychological: Normal affect, Normal Mood Diagnostic/Tx/Re-eval Clinical Impression(s) from Imaging Studies Foot X-Ray 03/20/20 12:23 IMPRESSION: Normal x-ray examination of the foot. Electronically Signed: Becca Olivares, at 12:51 EST Tel , Service support , - Medical Decision Making Patient presents with foot pain. There is no visible sign of trauma. There is no erythema, swelling, abrasions or lacerations. Patient describes the pain as burning. Left foot x-ray reported by myself and the radiologist shows no acute abnormality. I do not believe this is gout. By the way she is describing I think she might have a tendinitis. Patient is counseled on anti-inflammatories for home. I recommended that she try wearing better shoes that slippers. She was placed on prednisone for home. Patient stable for discharge at this time. Impression: 1. Left foot tendinitis ED Disposition - Plan for ED Patient: Disposition: Home or Assisted Living Instructions: ED Tendonitis Prescriptions: predniSONE tablet 60 mg PO DAILY #15 tab Transmission Status: Received by [facility] #30 Referrals: Jerzy Oviedo MD [NON-STAFF] -
--- NOTE | 2020-03-20 12:23 | RAD_ITS ---
STUDY: X-RAY - LEFT FOOT CLINICAL: Female, 44 years old. PAIN AND BURNING SENSATION TO TOP OF LEFT FOOT FOR 3 DAYS. NO INJURY. TECHNIQUE: 3 view(s) of the foot. COMPARISON: None. FINDINGS: Normal talus, calcaneus, and tarsal bones. Normal visualized subtalar, talonavicular, calcaneocuboid, tarsal and tarsometatarsal articulations. Normal metatarsi. Normal metatarsophalangeal joint of the great toe. Normal tibial and fibular sesamoid bones. Normal interphalangeal joint of the great toe. Normal phalanges of the great toe. Normal second through fifth metatarsophalangeal joints. Normal interphalangeal joints and phalanges of the lesser toes. The soft tissue structures are unremarkable. RAD/Foot min 3 Views IMPRESSION: Normal x-ray examination of the foot. Electronically Signed: Becca Olivares, at 12:51 EST Tel , Service support ,
[2020-03-20] MEDS: oxyCODONE 5 MG Tablet PO (12:29)
[2020-03-20] MEDS: predniSONE 20 MG Tablet 60 MG PO (13:41)
[2020-03-20 13:44] VITALS: RESP 17; RESP 18
== END 2020-03-20 13:50 | disposition home or self-care (01) ==
PROVIDERS: Emergency Provider Student in an Organized Health Care Education/Training Program; PCP Internal Medicine
DX: M77.52 Other enthesopathy of left foot and ankle (principal); F41.9 Anxiety disorder, unspecified; F17.200 Nicotine dependence, unspecified, uncomplicated
CPT/HCPCS: 73630; 99283

== ENCOUNTER 2020-04-12 08:33 | Emergency (ER) | payer MEDICAID, SELFPAY ==
[2020-04-12 08:33] VITALS: BP 126/92; PULSE 79; RESP 18; TEMP 36.4; O2SAT 97; BMI 42.5
--- NOTE | 2020-04-12 08:41 | ED.VIS.GEN ---
History of Present Illness Chief Complaint: Other, Pain/Inj Informant: Patient Narrative: 44-year-old female presenting with right-sided neck pain. She states had this for about 5 days. Patient denies any trauma. She denies paresthesias. She has a history of neck pain in which she is got injections for in the past. She states that Flexeril has helped her previously. She states that she has run out of this. Patient also states that she had her Covid?19 immunization 1 week ago and has not had any fever, chills, myalgias, cough, cold, change in taste and smell. - Past Medical History (1) Anxiety Status: Chronic Comment: on Xanax (2) Asthma Status: Chronic Past Medical History - Allergies and Home Meds Allergies/Adverse Reactions: Allergies No Known Allergies Allergy (Verified 04/12/20 08:33) Primary Care Physician: Sobeida Berger MD [Primary Care Provider] - Prior records reviewed: Yes Past Medical History: - - Reviewed in problem list Surgical History: noncontributory, - - BLTL, L arm ulnar nerve surgery, appendectomy. Lives: Alone Smoking Status: Current every day smoker Alcohol: None Drugs: None - Family History Maternal Family History: Reports: Diabetes, High Cholesterol, Heart Disease, Hypertension Paternal Family History: Reports: Diabetes, High Cholesterol, Heart Disease, Hypertension Review of Systems General: Denies: Chills, Fever, Sweats Eyes: Reports: Visual changes - left ENT: Denies: Rhinorrhea, Sore throat Cardiovascular: Denies: Chest pain, Palpitations Respiratory: Denies: Dyspnea, Cough, Dyspnea on exertion Gastrointestinal: Denies: Abdominal pain, Nausea, Vomiting, Diarrhea, Melena, Hematochezia Genitourinary: Denies: Dysuria, Hematuria, Frequency Musculoskeletal: Reports: Neck pain. Denies: Back pain, Swelling Skin: Denies: Rash, Abscess Neurological: Denies: Headache, Weakness, Parasthesia, Numbness Psych: Denies: Depression, Anxiety Physical Exam Vital Signs/Narrative: Vital Signs Temp Pulse Resp BP Pulse Ox 04/12/20 08:33 97.5 F L 79 18 126/92 H 97 General: Well nourished, No Acute Distress Head: Normocephalic, Atraumatic Eyes: Perrl, EOMI ENT: Moist mucous membranes, No rhinorrhea Neck: - - Tenderness to palpation right cervical paraspinal musculature. No midline spinal deformity or step-off.. Negative for: Supple, No lymphadenopathy Cardiovascular: Regular rate, Regular rhythm Respiratory: No distress, CTA bilaterally Back: Normal Inspection. Negative for: Spinal tenderness Extremities: Nontender, No edema Skin: Normal color, No rash Neurological: Alert, Oriented x3, Cranial nerves II-XII grossly intact Psychological: Normal affect, Tearful Diagnostic/Tx/Re-eval Clinical Impression(s) from Imaging Studies Chest CT 04/12/20 08:48 IMPRESSION: No acute abnormality is seen. Electronically Signed: Dmitri Ramesh MD at 9:30 EST , Service support , - Medical Decision Making Patient presents with right-sided neck pain. She states this is acute on chronic. She denies any direct trauma. Denies paresthesias. Patient had CT of the cervical spine which is negative for acute process. She was treated with oxycodone in the ED. She was given pain medication for home and counseled to follow-up with her PCP to ensure resolution. She can return precautions. Impression: 1. Cervical strain ED Disposition - Plan for ED Patient: Disposition: Home or Assisted Living Instructions: ED Neck Sprain or Strain Prescriptions: Oxycodone HCl/Acetaminophen [Percocet 5/325] 1 tab PO Q6H PRN PRN 3 Days #12 tab PRN Reason: Pain Prescription Printed Referrals: Sobeida Berger MD [Primary Care Provider] -
--- NOTE | 2020-04-12 08:48 | CT_ITS ---
STUDY: CT CHEST WITHOUT CONTRAST REASON FOR EXAM: Female, 44 years old. COVID VACCINE LAST WEEK-NECK PAIN SINCE RADIATION DOSAGE (If Supplied By Facility): CTDIvol = ( 20.00 ) mGy, DLP = ( 729.64 ) mGycm TECHNIQUE: Transaxial imaging was performed without the administration of intravenous contrast material. Multiplanar coronal and sagittal images were reformatted. Individualized dose optimization techniques were used for this CT. COMPARISON: Comparison is made with prior examination dated 09/23/2016. FINDINGS: Stable small benign-appearing bilateral axillary lymph nodes. The lungs are normal. There is no demonstrated pleural abnormality. Normal heart and pericardium. There are multiple small lymph nodes within the mediastinum, which are normal in size and morphology most compatible with reactive lymph hyperplasia. Normal hilar regions. Normal unenhanced pulmonary arteries. Normal aorta arch and descending thoracic aorta. Minimal degree of degenerative changes in the lower dorsal spine. There is no demonstrated abnormality of the visualized upper abdomen. CT/Chest without Contrast IMPRESSION: No acute abnormality is seen. Electronically Signed: Dmitri Ramesh MD at 9:30 EST , Service support ,
[2020-04-12] MEDS: oxyCODONE 5 MG Tablet PO (08:54)
== END 2020-04-12 10:12 | disposition home or self-care (01) ==
PROVIDERS: Emergency Provider Student in an Organized Health Care Education/Training Program; PCP Internal Medicine
DX: S16.1XXA Strain of muscle, fascia and tendon at neck level, initial encounter (principal); X58.XXXA Exposure to other specified factors, initial encounter; Y93.9 Activity, unspecified; Y92.9 Unspecified place or not applicable; Y99.9 Unspecified external cause status; F41.9 Anxiety disorder, unspecified; J45.909 Unspecified asthma, uncomplicated; F17.200 Nicotine dependence, unspecified, uncomplicated
CPT/HCPCS: 71250; 99283

== ENCOUNTER 2020-05-30 16:33 | Emergency (ER) | payer MEDICAID, SELFPAY ==
[2020-05-30 16:34] VITALS: BP 141/85; PULSE 87; RESP 18; TEMP 36.2; O2SAT 96; BMI 42.5
--- NOTE | 2020-05-30 16:44 | CT_ITS ---
STUDY: CT ABDOMEN AND PELVIS WITHOUT CONTRAST REASON FOR EXAM: Female, 44 years old. Abdominal pain. RADIATION DOSAGE (If Supplied By Facility): CTDIvol = ( 14.71 ) mGy, DLP = ( 765.72 ) mGycm TECHNIQUE: Transaxial images were obtained from the dome of the diaphragm to the symphysis pubis without oral contrast, and without intravenous contrast. Sagittal and coronal images were reconstructed. Individualized dose optimization techniques were used for this CT. COMPARISON: 01/30/2018. FINDINGS: The visualized lung bases are unremarkable. The visualized portions of the heart are within normal limits. Normal liver. There is non-visualization of the gallbladder, which may be secondary to either contraction or a prior cholecystectomy. Normal spleen. Normal pancreas. Normal bilateral adrenal glands. Normal right kidney. Normal left kidney. Normal visualized bilateral ureters. Normal visualized stomach. Normal small intestine. Normal colon. Density and surgical clips in the right lower quadrant adjacent to the ascending colon. There are surgical clips in the region of the appendix consistent with a prior appendectomy. Normal abdominal aorta. Normal inferior vena cava. Normal retroperitoneum. The urinary bladder is collapsed. Uterus is normal in size and contour. There is no adnexal mass. There is no pelvic lymphadenopathy. Phleboliths are seen in the pelvis. No free air or free fluid is seen within the peritoneal cavity. Normal abdominal wall. Normal osseous structures. CT/Abdomen/Pelvis without Cont IMPRESSION: No acute intra-abdominal or pelvic process or major interval change when compared to the prior study. Electronically Signed: Kane Damon DO at 17:56 EST Tel [phone], Service support ,
--- NOTE | 2020-05-30 16:45 | ED.DCSUM_ITS ---
- ER Visit Summary Date of Service: 05/30/20 Chief Complaint: [Abdominal pain] History of Present Illness: The patient is a 44 F [presents to the emergency department complaint of abdominal pain for about a week. Patient describes pain in her right lower abdomen that radiates around to the back. Patient c omplaining of urinary frequency and urgency. Patient urinating small amounts at a time. She denies any fevers. Patient denies nausea or vomiting. Patient also complaining of bilateral carpal tunnel exacerbation pain for several days and having hard time sleeping secondary to pain in her hands. Patient denies any recent injuries. Patient describes some vaginal itching and small amount of whitish discharge as well. She is not currently sexually active.] Physical Examination: [HEENT-PERRLA, EOMI. Cranial nerves II through XII grossly intact. TMs clear. Mucous membranes moist. No adenopathy. Cardiovascular-regular rate and rhythm without murmur or ectopy Lungs-clear to auscultation, chest wall stable without crepitus or subcu emphysema Abdomen-normoactive bowel sounds, soft. Patient has tenderness palpation of the right lower quadrant with some guarding. She is got some CVA tenderness on the right. No rebound, rigidity, or peritoneal signs. Extremities-intact ?4, normal range of motion, normal pulses, atraumatic] Test Results: [CBC with differential obtained showed a white and a 9.1, hemoglobin 12.9, hematocrit 40, placed 236. Chemistries unremarkable. Urinalysis showed 500 leukocyte Estrace and 0-5 WBCs and 0-[address] flank showed nothing acute.] Emergency Department Course and Treatment: [Received Bactrim DS 1 tablet p.o. Will be given a wrist splint for her wrist.] Treatment Plan: [Patient will be given referral to orthopedics regarding her car pal tunnel. Patient will be given a prescription for [place] for pain. I will treat her with 3 days worth of Bactrim as she is clinically describing a UTI and send off a urine culture. Patient was given scription for Diflucan as well.] Disposition: [Discharged home in stable condition] Impression: [Bilateral wrist pain-suspect carpal tunnel Abdominal pain-etiology uncertain Dysuria] This note was generated with [employer] dictation software. It may contain incorrect words, spelling, and punctuation that were not noted in review of the chart prior to signing ED Disposition - Plan for ED Patient: Referrals: Sobeida Berger MD [Primary Care Provider] -
[2020-05-30 17:26] LABS: Absolute Lymphocyte Count 2.43 X10^3/uL (0.83-4.51); Absolute Neutrophil Count 5.9 X10^3/uL (2.0-7.7); Basophil# 0.03 X10^3/uL; Basophil% 0.3 % (0-1); Eosinophil# 0.14 X10^3/uL; Eosinophils% 1.5 % (0-5); Hematocrit 39.8 % (37-47); Hemoglobin 12.9 g/dL (12.0-15.0); Lymphocyte # 2.43 X10^3/ul (4.0); Lymphocyte % 26.7 % (19-41); Mean Corp Hgb Conc 32.4 g/dL (32-36); Mean Corpuscular Hgb 29.2 pg (27.0-32.0); Mean Platelet Vol. 10.2 fl (6.2-12.0); Monocyte# 0.56 X10^3/uL; Monocyte% 6.1 % (0-10); NRBC Flagged by Analyzer 0 % (0-5); Neutrophil % 64.9 % (47-70); Platelet Count 256 K/mm3 (150-450); RBC Distribution Width CV 13.9 % (11.6-14.6); RBC Distribution Width SD 45.3 fl (35.1-43.9); Red Blood Count 4.42 M/mm3 (4.2-5.4); White Blood Count 9.1 K/mm3 (4.4-11.0)
[2020-05-30] MEDS: Ketorolac 30 MG/ML Syringe IV (17:28)
[2020-05-30 17:31] LABS: Bacteria 0 SEEN /hpf (None Seen); Mucous, Urine 0 SEEN /hpf (<or=2+); Red Blood Cells-Urine 0 SEEN /hpf (0-5)
[2020-05-30 17:43] LABS: Color, Urine Yellow (Yellow); Glucose, Dipstick Normal (Normal); Ketone-Dipstick Negative (Negative); Leukocyte Esterase-Dipstick 500 /ul (Negative); Nitrite-Dipstick Negative (Negative); Occult Blood-Urine 10 /ul (Negative); Protein-Dipstick Negative (Negative); Urine Bilirubin Dipstick Negative (Negative); Urine Clarity Clear (Clear); Urine Urobilinogen Normal (Normal)
[2020-05-30 17:46] LABS: Anion Gap 8 (5-15); BUN 13 mg/dL (7-18); BUN/Creat Ratio 23.1 RATIO (10-20); Chloride 104 mmol/L (98-107); Creatinine, Serum 0.56 mg/dL (0.55-1.02); EST Glomerular Filtration Rate 123 mL/min (>60); Est Glom Filt Rate - Afr Amer 149 mL/min (>60); Estimated Creatinine Clearance 104.94 ml/min; Glucose 98 mg/dL (74-106); Potassium 4.5 mmol/L (3.5-5.1); Sodium Level 136 mmol/L (136-145)
[2020-05-30 17:56] LABS: Squamous Epithelial Cells - UA 0-5 SEEN /hpf (5-10); White Blood Cells 0-5 SEEN /hpf (0-5)
[2020-05-30 17:59] LABS: Trichomonas 0-5 SEEN /hpf (None Seen)
--- NOTE | 2020-05-30 18:25 | ED.DEP ---
ED Disposition - Plan for ED Patient: Instructions: ED Abdominal Pain Unkn Cause Fem, ED Carpal Tunnel Syndrome Prescriptions: Smz/Tmp Ds [Bactrim Ds] 1 tab PO BID #6 tab Transmission Status: Pending to [facility] Fluconazole [Diflucan] 100 mg PO DAILY #1 tab Transmission Status: Pending to [facility] Hydrocodone Bitart/Apap 5-325 [[place] 5MG-325MG] 1 tablet PO Q4H PRN PRN 2 Days #10 tablet PRN Reason: Pain Transmission Status: Sent to [facility] Referrals: Sobeida Berger MD [Primary Care Provider] - Marlin Jordan DO [STAFF PHYSICIAN] - 3-5 Days
[2020-05-30] MEDS: Smz/Tmp Ds Tablet 1 TABLET PO (18:40)
[2020-05-30 18:42] VITALS: RESP 18
== END 2020-05-30 18:44 | disposition home or self-care (01) ==
LOC: ED 16:50
PROVIDERS: Emergency Provider Emergency Medicine; PCP Internal Medicine
DX: M25.531 Pain in right wrist (principal); M25.532 Pain in left wrist; R10.9 Unspecified abdominal pain; R30.0 Dysuria; F17.200 Nicotine dependence, unspecified, uncomplicated
CPT/HCPCS: 74176; 80048; 81001; 85025; 87086; 87088; 96374; 99285; A4216

== ENCOUNTER 2020-07-18 14:23 | Emergency (ER) | payer MEDICAID, SELFPAY ==
[2020-07-18 14:24] VITALS: BP 115/75; PULSE 81; RESP 18; TEMP 35; O2SAT 95; BMI 42.5
--- NOTE | 2020-07-18 14:48 | ED.VIS.BACK ---
HPI History of Present Illness Chief Complaint: Back Detail of Chief Complaint: Low back and right hip pain Informant: patient Onset/Context/Timing Onset: Month(s) (1) Context: Gradual Onset Timing: Continuous Quality: Sharp and Aching Location: Lumbar and Right Leg Worsened by: improves with Movement, Ambulation and Lifting Relieved by: Nothing Associated Symptoms Associated Symptoms: Radiation to Right Leg Narrative Narrative: Patient presents with low back and right hip pain that has been gradually getting worse over the past month. Patient states he acutely worse over the last week. Patient states is worse with sitting, standing, and lying flat. Patient states the pain is over the right lower lumbar area and right hip. Patient states the pain radiates down her right leg and into her right groin. Patient denies any trauma or injury. Patient states she does do a lot of lifting at work. Patient states this makes it worse. Patient denies any bowel or bladder changes. Patient denies any saddle anesthesia. [facility] Medical History (Updated 07/18/20 @ 15:[address] Brayan Guzmán, DO) Carpal tunnel syndrome Ulnar nerve laceration Home Medications albuterol sulfate [Ventolin HFA] 1 - 2 puff INHALATION Q4H PRN PRN #1 inhaler 07/21/15 [Rx Last Taken 10/13/17] spironolactone 25 mg PO DAILY #30 tab 08/21/16 [Rx Last Taken 10/15/17] ibuprofen 800 mg PO PRN PRN 10/16/17 [History Last Taken 10/16/17] [id number] [[employer] Mv Tablet] 1 tab PO DAILY 10/16/17 [History Last Taken 10/15/17] fluoxetine 40 mg PO DAILY 06/18/18 [History Last Taken Unknown] amitriptyline 20 mg PO QHS 09/27/19 [History Last Taken Unknown] lurasidone 20 mg PO DAILY 10/19/19 [History Last Taken Unknown] Valacyclovir Hcl [Valtrex] 2,000 mg PO BID #4 tab 12/01/19 [Rx Last Taken Unknown] fluticasone propion-salmeterol 1 ea IH BID 02/25/20 [History Last Taken Unknown] prednisone 60 mg PO DAILY #15 tab 03/20/20 [Rx Last Taken Unknown] fluconazole 100 mg PO DAILY #1 tab 05/30/20 [Rx Last Taken Unknown] sulfamethoxazole-trimethoprim 1 tab PO BID #6 tab 05/30/20 [Rx Last Taken Unknown] hydrocodone-acetaminophen 1 tab PO Q6H PRN PRN 3 Days #10 tablet 07/18/20 [Rx Last Taken Unknown] Allergy/AdvReac Type Severity Reaction Status Date / Time No Known Allergies Allergy Verified 07/18/20 14:26 Surgical History (Updated 07/18/20 @ 14:[address] Brayan Guzmán DO) History of appendectomy History of cholecystectomy History of tubal ligation Social History (Updated 07/18/20 @ 14:[address] Brayan Guzmán DO) Smoking Status: Current every day smoker tobacco type: cigarettes ROS ROS ED Constitutional Constitutional ED: Denies chills or fever(s) Eyes Eyes: Denies blurry vision or change in vision ENT ENT ED: Denies rhinorrhea or sore throat Cardiovascular Cardiovascular: Denies chest pain or palpitations Respiratory/Chest Respiratory/Chest: Denies dyspnea or sputum Gastrointestinal Gastrointestinal: Denies nausea or vomiting Genitourinary Genitourinary ED: Reports urinary frequency; Denies dysuria or hematuria Musculoskeletal Musculoskeletal: Reports back pain; Denies neck pain Integumentary Denies abscess or rash Neurologic Neurologic: Denies headache(s) or weakness Allergic/Immunologic Allergic/Immunologic ED: Denies mouth swelling or urticaria EXAM Physical Exam Const Vital Signs: 07/18/20 14:24 Temperature 95.0 F L Temperature Source Temporal Pulse Rate 81 Respiratory Rate 18 Blood Pressure 115/75 Blood Pressure Mean 88 Pulse Ox 95 Oxygen Delivery Method Room Air Positive well nourished and well developed General Appearance ED: well developed Back/Spine Back/Spine Narrative: There is tenderness over the right lumbar paraspinal muscles and sciatic notch. There is no midline tenderness. There is no bony crepitance or step-off. Range of motion was slightly limited in all motions of the lumbar spine secondary to pain. There is no edema or ecchymosis. Thoracic Spine / Upper Back: paraspinal muscle tenderness Lumbar Spine / Lower Back: straight leg raise negative bilaterally Extremity normal to inspection General Extremety ED: Yes tenderness Right Lower Extremity: hip joint inspection, palpation (There is tenderness to palpation in the right inguinal area. There are no hernias palpated.) and ROM (There is good range of motion of the right hip.) Neuro oriented x3 and no sensory deficits noted Sensorium / Orientation: alert Motor Exam: strength 5/5 throughout MDM MDM MDM Narrative Medical decision making narrative: Patient did have x-rays of her lumbar spine and right hip approximately 1 month ago. These were normal. Patient was given a dose of [place] here. Patient was given a prescription for a short course of [place]um. Patient was given restrictions for work. Patient was instructed to follow-up with her primary care physician in 5 to 7 days. Patient understood and was agreeable with the plan. All questions were answered. Discharge Plan Triage Chief Complaint: Back ED Provider: Brayan Guzmán Dx/Rx/DC Orders Clinical Impression: Acute lumbosacral myofascial strain Instructions: ED Back Sprain/Strain Prescriptions: New hydrocodone-acetaminophen [hydrocodone-acetaminophen] 1 TABLET tablet 1 tab PO Q6H PRN PRN (Reason: Pain) 3 Days Qty: 10 RF: 0 No Action albuterol sulfate [Ventolin HFA] 1 INHALER inhaler 1 - 2 puff inhalation Q4H PRN PRN (Reason: Wheezing) Qty: 1 RF: 0 spironolactone 25 MG tablet 25 mg PO DAILY Qty: 30 RF: 0 [id number] [[employer]] 1 EACH tablet 1 tab PO DAILY RF: 0 ibuprofen 200 MG tablet 800 mg PO PRN PRN (Reason: Pain) RF: 0 fluoxetine 10 MG capsule 40 mg PO DAILY RF: 0 amitriptyline 10 MG tablet 20 mg PO QHS RF: 0 lurasidone 20 mg tablet 20 mg PO DAILY RF: 0 Valacyclovir Hcl [Valtrex] 1,000 MG tablet 2,000 mg PO BID Qty: 4 RF: 0 fluticasone propion-salmeterol 1 EACH blister with device 1 ea IH BID RF: 0 prednisone 20 MG tablet 60 mg PO DAILY Qty: 15 RF: 0 sulfamethoxazole-trimethoprim 1 TABLET tablet 1 tab PO BID Qty: 6 RF: 0 fluconazole 100 MG tablet 100 mg PO DAILY Qty: 1 RF: 0 Primary Care Provider: Sobeida Berger Referrals: Sobeida Berger MD [Primary Care Provider] - 3-5 Days Disposition Disposition: Home, self care
[2020-07-18] MEDS: HYDROcodone Bitartrate/Apap 5/325 Tablet PO (15:07)
== END 2020-07-18 15:16 | disposition home or self-care (01) ==
PROVIDERS: Emergency Provider Emergency Medicine; PCP Internal Medicine
DX: S39.012A Strain of muscle, fascia and tendon of lower back, initial encounter (principal); X58.XXXA Exposure to other specified factors, initial encounter; Y93.9 Activity, unspecified; Y92.9 Unspecified place or not applicable; Y99.9 Unspecified external cause status; F17.210 Nicotine dependence, cigarettes, uncomplicated; Z79.51 Long term (current) use of inhaled steroids; Z79.52 Long term (current) use of systemic steroids
CPT/HCPCS: 99283

== ENCOUNTER 2020-07-19 22:04 | Emergency (ER) | payer MEDICAID, SELFPAY ==
[2020-07-18 14:24] VITALS: BMI 42.5
[2020-07-19 22:05] VITALS: BP 157/81; PULSE 89; RESP 18; TEMP 36.8; O2SAT 100; BMI 44.1
--- NOTE | 2020-07-19 22:58 | EDS_ITS ---
HPI History of Present Illness Chief Complaint: Back Informant: patient Onset/Context/Timing Onset: Month(s) and - (One) Timing: Continuous Quality: Sharp Location: Lumbar Current Severity: Moderate Maximum Severity: Moderate Worsened by: improves with Movement, Ambulation, Bending and Lifting Relieved by: Nothing Associated Symptoms Associated Symptoms: Urinary Retention Narrative Narrative: 45-year-old female with back pain for a month in the lower back. Denies dysuria but feels like she has to urinate frequently in small amounts. Denies any numbness, tingling or weakness in her lower extremities. No prior back or neck surgery. No recent falls or trauma. No fever. No weight loss. No history of cancer. Prior similar symptoms: Yes Recent Illness/Hospitalization: No PFSH PFSH Medical History Carpal tunnel syndrome Chronic pain Ulnar nerve laceration Home Medications albuterol sulfate [Ventolin HFA] 1 - 2 puff INHALATION Q4H PRN PRN #1 inhaler 07/21/15 [Rx Last Taken 10/13/17] spironolactone 25 mg PO DAILY #30 tab 08/21/16 [Rx Last Taken 10/15/17] ibuprofen 800 mg PO PRN PRN 10/16/17 [History Last Taken 10/16/17] [id number] [[employer] Mv Tablet] 1 tab PO DAILY 10/16/17 [History Last Taken 10/15/17] fluoxetine 40 mg PO DAILY 06/18/18 [History Last Taken Unknown] amitriptyline 20 mg PO QHS 09/27/19 [History Last Taken Unknown] lurasidone 20 mg PO DAILY 10/19/19 [History Last Taken Unknown] Valacyclovir Hcl [Valtrex] 2,000 mg PO BID #4 tab 12/01/19 [Rx Last Taken Unknown] fluticasone propion-salmeterol 1 ea IH BID 02/25/20 [History Last Taken Unknown] fluconazole 100 mg PO DAILY #1 tab 05/30/20 [Rx Last Taken Unknown] hydrocodone-acetaminophen 1 tab PO Q6H PRN PRN 3 Days #10 tablet 07/18/20 [Rx Last Taken Unknown] Allergy/AdvReac Type Severity Reaction Status Date / Time No Known Allergies Allergy Verified 07/18/20 14:26 Surgical History History of appendectomy History of cholecystectomy History of tubal ligation Social History Smoking Status: Current every day smoker tobacco type: cigarettes ROS ROS ED ROS Narrative Patient denies other significant complaints other than urinary frequency and feels like she is not emptying her bladder. She denies any weakness nor numbness. No fever. Constitutional Constitutional ED: Denies fever(s) or weight loss Eyes Eyes: Denies change in vision ENT ENT ED: Denies ear pain Cardiovascular Cardiovascular: Denies chest pain Respiratory/Chest Respiratory/Chest: Denies dyspnea Gastrointestinal Gastrointestinal: Denies abdominal pain Genitourinary Genitourinary ED: Reports urinary frequency; Denies dysuria Musculoskeletal Musculoskeletal: Reports back pain Integumentary Denies rash Neurologic Neurologic: Denies headache(s) Psychiatric Psychiatric: Denies suicidal thoughts Endocrine Endocrinology: Reports polyuria Hematologic/Lymphatic Hematologic/Lymphatic: Denies easy bruising Allergic/Immunologic Allergic/Immunologic ED: Denies urticaria EXAM Physical Exam Narrative Exam Narrative: Middle-aged female. No acute distress. Vital signs stable and afebrile. HEENT exam unremarkable. Neck nontender no lymphadenopathy. Lungs clear to auscultation bilaterally. Heart regular rhythm no murmur. Abdomen soft nontender normal bowel sounds no peritoneal signs. Mild obesity. Patient is moving all 4 extremities. They are neurovascular intact. 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 Dorsi and plantar flexion intact. She can raise either leg without any significant straight leg raise pain. She has no cauda equina. No saddle anesthesia. Normal perianal and medial thigh sensation. Normal dorsi plantar flexion. Back she has tenderness over her lumbar spine area and paralumbar soft tissues. There is no ecchymosis or bruising. Const Vital Signs: 07/19/20 22:05 Temperature 98.3 F Temperature Source Oral Pulse Rate 89 Respiratory Rate 18 Blood Pressure 157/81 H Blood Pressure Mean 106 Pulse Ox 100 Oxygen Delivery Method Room Air Positive well nourished, well developed and obese General Appearance ED: well developed Nutritional Appearance: obese HEENT Reports moist mucous membranes Negative for trauma or tenderness Eyes PERRL and EOMs intact bilaterally Neck no lymphadenopathy, supple and no JVD General: tenderness Resp normal respiratory effort and clear to auscultation bilaterally Cardio regular rate, regular rhythm and no murmurs GI normal to inspection, nondistended, normoactive bowel sounds, soft to palpation, non-tender and non-distended Back/Spine Back/Spine Narrative: Tenderness to her lumbar spine and paralumbar soft tissues. No ecchymosis or bruising no signs of trauma. No redness or warmth. 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 Equal symmetrical dorsi and plantar flexion. Able to raise either leg. Normal sensation. No cauda equina. No saddle anesthesia. Sensorium / Orientation: alert Motor Exam: strength 5/5 throughout Psych mental status grossly normal Skin no rashes or lesions noted MDM MDM MDM Narrative Medical decision making narrative: Middle-aged female for back pain for approximately 1 month. Worse for the last several days. No prior back surgery. No prior back history. No fever. No weight loss. No history of cancer. She does have urinary frequency and feels like she cannot empty her bladder. Her neurologic exam motor strength and sensation is normal. There is no cauda equina. I will have her urinate and then have the nurses check her for potential urinary retention with a bladder scan. Bladder scan showed 13 cc post void. Therefore no post void residual no urinary retention. Repeat exam the patient is doing well at 11:21 PM. She denied dis cussed her test results. She has had no change in her exam. She will be given IM Toradol for pain. She is following up with her primary care physician and already has an appointment to see an orthopedic physician. She knows to return if worse. There is a very good chance she needs an outpatient MRI which will be determined by her primary and orthopedic follow-up. She does not need it acutely at this time since she has no muscle weakness, no numbness, no cauda equina and no urinary retention. Discharge Plan Triage Chief Complaint: Back ED Provider: Stanton Car Dx/Rx/DC Orders Clinical Impression: Musculoskeletal back pain Instructions: ED Back Pain (Acute or Chronic) Prescriptions: No Action albuterol sulfate [Ventolin HFA] 1 INHALER inhaler 1 - 2 puff inhalation Q4H PRN PRN (Reason: Wheezing) Qty: 1 RF: 0 spironolactone 25 MG tablet 25 mg PO DAILY Qty: 30 RF: 0 [employer] 1 EACH tablet 1 tab PO DAILY RF: 0 ibuprofen 200 MG tablet 800 mg PO PRN PRN (Reason: Pain) RF: 0 fluoxetine 10 MG capsule 40 mg PO DAILY RF: 0 amitriptyline 10 MG tablet 20 mg PO QHS RF: 0 lurasidone 20 mg tablet 20 mg PO DAILY RF: 0 Valacyclovir Hcl [Valtrex] 1,000 MG tablet 2,000 mg PO BID Qty: 4 RF: 0 fluticasone propion-salmeterol 1 EACH blister with device 1 ea IH BID RF: 0 fluconazole 100 MG tablet 100 mg PO DAILY Qty: 1 RF: 0 hydrocodone-acetaminophen [hydrocodone-acetaminophen] 1 TABLET tablet 1 tab PO Q6H PRN PRN (Reason: Pain) 3 Days Qty: 10 RF: 0 Primary Care Provider: Sobeida Berger Referrals: Sobeida Berger MD [Primary Care Provider] - Keep Dharmesh appointment (Follow-up with both her primary care physician and your orthopedic appointment.) Activity Restrictions/Additional Instructions: Follow-up with your doctor and your orthopedic doctor. If this pain continues you need an MRI of your lower back for further evaluation. If pain gets severely worse, you develop incontinence, weakness or numbness in your lower extremities you need to be reevaluated immediately. Motrin and Tylenol for pain. Disposition Disposition: Home, self care
[2020-07-19] MEDS: Ketorolac 30 MG/ML Syringe IM (23:33)
== END 2020-07-19 23:52 | disposition home or self-care (01) ==
PROVIDERS: Emergency Provider Emergency Medicine; PCP Internal Medicine
DX: M54.5 Low back pain (principal); G89.29 Other chronic pain; E66.9 Obesity, unspecified; F17.210 Nicotine dependence, cigarettes, uncomplicated; Z68.41 Body mass index [BMI] 40.0-44.9, adult
CPT/HCPCS: 96372; 99284

== ENCOUNTER 2020-07-20 21:13 | Emergency (ER) | payer MEDICAID, SELFPAY ==
[2020-07-19 22:05] VITALS: BMI 44.1
[2020-07-20 21:14] VITALS: BP 145/102; PULSE 104; RESP 18; TEMP 36.6; O2SAT 96; BMI 42.5
--- NOTE | 2020-07-20 22:14 | EDS_ITS ---
HPI History of Present Illness Chief Complaint: Back Informant: patient and spouse/S.O. Narrative Narrative: 45-year-old female presents to the emergency department with back pain. 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 She states she came to the emergency room was given some steroids and it felt better for a couple days but has progressively worsened over the past month. She states that this is the third emergency department visit in 3 days. She states that the pain is in the low right back that radiates down through the buttocks into the hip. She states that she will get a burning pain in her thigh. Last night she had a normal post void residual volume. No fevers. No IV drug use. Patient's notes the pain is worse with any type of movement. She states she is having difficulty sleeping. She denies any foot drop or neurologic deficits. Patient states that when the injury first happened she had x-rays and was told that it showed some degenerative changes. [facility] Medical History Carpal tunnel syndrome Chronic pain Ulnar nerve laceration Home Medications albuterol sulfate [Ventolin HFA] 1 - 2 puff INHALATION Q4H PRN PRN #1 inhaler 07/21/15 [Rx Last Taken 10/13/17] spironolactone 25 mg PO DAILY #30 tab 08/21/16 [Rx Last Taken 10/15/17] ibuprofen 800 mg PO PRN PRN 10/16/17 [History Last Taken 10/16/17] [id number] [[employer] Mv Tablet] 1 tab PO DAILY 10/16/17 [History Last Taken 10/15/17] fluoxetine 40 mg PO DAILY 06/18/18 [History Last Taken Unknown] amitriptyline 20 mg PO QHS 09/27/19 [History Last Taken Unknown] lurasidone 20 mg PO DAILY 10/19/19 [History Last Taken Unknown] Valacyclovir Hcl [Valtrex] 2,000 mg PO BID #4 tab 12/01/19 [Rx Last Taken Unknown] fluticasone propion-salmeterol 1 ea IH BID 02/25/20 [History Last Taken Unknown] fluconazole 100 mg PO DAILY #1 tab 05/30/20 [Rx Last Taken Unknown] hydrocodone-acetaminophen 1 tab PO Q6H PRN PRN 3 Days #10 tablet 07/18/20 [Rx Last Taken Unknown] bupropion HCl 150 mg PO DAILY 07/20/20 [History Last Taken Unknown] diazepam 5 mg PO Q8 PRN #15 tab 07/20/20 [Rx Last Taken Unknown] ketorolac 10 mg PO TID 5 Days #15 tab 07/20/20 [Rx Last Taken Unknown] oxycodone-acetaminophen [Percocet] 1 tab PO Q6H PRN 3 Days #12 tab 07/20/20 [Rx Last Taken Unknown] prednisone 60 mg PO DAILY #15 tablet 07/20/20 [Rx Last Taken Unknown] Allergy/AdvReac Type Severity Reaction Status Date / Time No Known Allergies Allergy Verified 07/20/20 21:15 Surgical History History of appendectomy History of cholecystectomy History of tubal ligation Social History Smoking Status: Current every day smoker tobacco type: cigarettes ROS ROS ED Constitutional Constitutional ED: Denies chills or weight loss Eyes Eyes: Denies change in vision or diplopia ENT ENT ED: Denies ear pain, rhinorrhea or sore throat Cardiovascular Cardiovascular: Denies chest pain, orthopnea, palpitations or racing heartbeat Respiratory/Chest Respiratory/Chest: Denies cough, dyspnea or orthopnea Gastrointestinal Gastrointestinal: Denies abdominal pain, diarrhea, nausea or vomiting Genitourinary Genitourinary ED: Denies dysuria, hematuria or urinary frequency Musculoskeletal Musculoskeletal: Reports back pain and radiating pain into limb; Denies arthralgias or myalgias Integumentary Denies abscess or rash Neurologic Neurologic: Denies headache(s) or weakness Psychiatric Psychiatric: Denies anxiety, depression, suicidal ideation or suicidal thoughts Endocrine Endocrinology: Denies polydipsia, polyphagia or polyuria Allergic/Immunologic Allergic/Immunologic ED: Denies mouth swelling, tongue swelling or urticaria EXAM Physical Exam Const Vital Signs: 07/20/20 21:14 Temperature 98 F Temperature Source Temporal Pulse Rate 104 H Respiratory Rate 18 Blood Pressure 145/102 H Blood Pressure Mean 116 Pulse Ox 96 Oxygen Delivery Method Room Air Positive well nourished and well developed General Appearance ED: well developed HEENT Reports normocephalic, head/scalp atraumatic and moist mucous membranes Eyes PERRL and EOMs intact bilaterally Neck no lymphadenopathy, supple and no JVD Resp normal respiratory effort and clear to auscultation bilaterally Cardio regular rate, regular rhythm and no murmurs GI normal to inspection, nondistended, normoactive bowel sounds and non-tender Palpation: soft Back/Spine no CVA tenderness Back/Spine Narrative: Patient has tenderness to palpation over the right lower lumbar paraspinal musculature but particularly around L4-L5. Lumbar Spine / Lower Back: ROM limited and pain with ROM Extremity normal to inspection General Extremety ED: Negative for edema General Extremity: Negative for edema Neuro oriented x3, CN's II-XII intact bilaterally and no sensory deficits noted Neuro Narrative: Normal patella and Achilles reflex Sensorium / Orientation: alert Sensory Exam: No sensory level loss detected Motor Exam: strength 5/5 throughout Psych mental status grossly normal Mood & Affect: Negative for depressed or tearful Skin no rashes or lesions noted and no wounds MDM MDM MDM Narrative Medical decision making narrative: Patient received a dose of Dilaudid and Valium. We will place her on steroids as well as Valium at home. Can write for short course of narcotics but would also recommend anti-inflammatories. She has an appointment on the 6 with primary care. I refer her to Dr. Avery for spine surgery. I think the patient most likely has a herniated disc given her description of burning pain with radiation to the leg and the duration of her symptoms. Discharge Plan Triage Chief Complaint: Back ED Provider: David Espinoza Dx/Rx/DC Orders Clinical Impression: Acute right lumbar radiculopathy Instructions: ED Sciatica Prescriptions: New ketorolac 10 mg tablet 10 mg PO TID 5 Days Qty: 15 RF: 0 prednisone 20 MG tablet 60 mg PO DAILY Qty: 15 RF: 0 oxycodone-acetaminophen [Percocet] 5-325 mg tablet 1 tab PO Q6H PRN (Reason: pain) 3 Days Qty: 12 RF: 0 diazepam [diazepam] 5 MG tablet 5 mg PO Q8 PRN (Reason: Muscle Spasm) Qty: 15 RF: 0 No Action albuterol sulfate [Ventolin HFA] 1 INHALER inhaler 1 - 2 puff inhalation Q4H PRN PRN (Reason: Wheezing) Qty: 1 RF: 0 spironolactone 25 MG tablet 25 mg PO DAILY Qty: 30 RF: 0 [employer] 1 EACH tablet 1 tab PO DAILY RF: 0 ibuprofen 200 MG tablet 800 mg PO PRN PRN (Reason: Pain) RF: 0 fluoxetine 10 MG capsule 40 mg PO DAILY RF: 0 amitriptyline 10 MG tablet 20 mg PO QHS RF: 0 lurasidone 20 mg tablet 20 mg PO DAILY RF: 0 Valacyclovir Hcl [Valtrex] 1,000 MG tablet 2,000 mg PO BID Qty: 4 RF: 0 fluticasone propion-salmeterol 1 EACH blister with device 1 ea IH BID RF: 0 fluconazole 100 MG tablet 100 mg PO DAILY Qty: 1 RF: 0 hydrocodone-acetaminophen [hydrocodone-acetaminophen] 1 TABLET tablet 1 tab PO Q6H PRN PRN (Reason: Pain) 3 Days Qty: 10 RF: 0 bupropion HCl 150 mg tablet extended release 24 hr 150 mg PO DAILY RF: 0 Primary Care Provider: Sobeida Berger Referrals: Sobeida Berger MD [Primary Care Provider] - As soon as possible Gael Avery DO [STAFF PHYSICIAN] - As soon as possible Disposition Disposition: Home, self care
[2020-07-20] MEDS: HYDROmorphone 1 MG/ML Syringe IM (22:16)
[2020-07-20] MEDS: diazePAM 5 MG Tablet PO (22:16)
[2020-07-20 22:46] VITALS: BP 119/61; PULSE 81; RESP 14; O2SAT 99
== END 2020-07-20 22:47 | disposition home or self-care (01) ==
PROVIDERS: Emergency Provider Emergency Medicine; PCP Internal Medicine
DX: M54.16 Radiculopathy, lumbar region (principal); G89.29 Other chronic pain; F17.210 Nicotine dependence, cigarettes, uncomplicated
CPT/HCPCS: 96372; 99283

== ENCOUNTER 2020-08-06 11:42 | Emergency (ER) | payer MEDICAID, SELFPAY ==
[2020-07-23 13:23] VITALS: BMI 42.5
[2020-08-06 11:44] VITALS: BP 122/77; PULSE 88; RESP 16; TEMP 36.2; O2SAT 96; BMI 43.5
--- NOTE | 2020-08-06 12:12 | EDS_ITS ---
HPI History of Present Illness Chief Complaint: Back Narrative Narrative: Patient is a 45-year-old female who presents to the emergency department for right-sided low back pain rating down the right leg. She was seen for the same complaint at the end of June. She followed up with the rthopedic doctor who examined her hip but thought it was more likely her spine. She was supposed to follow-up with Dr. Avery but could not get in until next Thursday. She states that she has been taking Tylenol and ibuprofen which have not been giving her any relief. She currently rates the pain as severe. She feels like her right leg is starting to be a little weak. She ended up having a fall down the steps today due to her symptoms. She denies any new injury from the fall today. The previous issue was atraumatic whenever this started last month. 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 She has never had back problems prior to this. She denies any fevers or chills. No abdominal pain associate this. No chest pain or shortness of breath. She denies any saddle anesthesia. No urinary retention. No change in bowel movements. [facility] Medical History (Updated 08/06/20 @ 13:[address] Casey Theodore, DO) Carpal tunnel syndrome Chronic pain COPD (chronic obstructive pulmonary disease) Ulnar nerve laceration Home Medications albuterol sulfate [Ventolin HFA] 1 - 2 puff INHALATION Q4H PRN PRN #1 inhaler 07/21/15 [Rx Last Taken 10/13/17] spironolactone 25 mg PO DAILY #30 tab 08/21/16 [Rx Last Taken 10/15/17] ibuprofen 800 mg PO PRN PRN 10/16/17 [History Last Taken 10/16/17] [id number] [[employer] Mv Tablet] 1 tab PO DAILY 10/16/17 [History Last Taken 10/15/17] fluoxetine 40 mg PO DAILY 06/18/18 [History Last Taken Unknown] amitriptyline 20 mg PO QHS 09/27/19 [History Last Taken Unknown] lurasidone 20 mg PO DAILY 10/19/19 [History Last Taken Unknown] Valacyclovir Hcl [Valtrex] 2,000 mg PO BID #4 tab 12/01/19 [Rx Last Taken Unknown] fluticasone propion-salmeterol 1 ea IH BID 02/25/20 [History Last Taken Unknown] fluconazole 100 mg PO DAILY #1 tab 05/30/20 [Rx Last Taken Unknown] hydrocodone-acetaminophen 1 tab PO Q6H PRN PRN 3 Days #10 tablet 07/18/20 [Rx Last Taken Unknown] bupropion HCl 150 mg PO DAILY 07/20/20 [History Last Taken Unknown] diazepam 5 mg PO Q8 PRN #15 tab 07/20/20 [Rx Last Taken Unknown] ketorolac 10 mg PO TID 5 Days #15 tab 07/20/20 [Rx Last Taken Unknown] oxycodone-acetaminophen [Percocet] 1 tab PO Q6H PRN 3 Days #12 tab 07/20/20 [Rx Last Taken Unknown] prednisone 60 mg PO DAILY #15 tablet 07/20/20 [Rx Last Taken Unknown] baclofen 10 mg PO QHS 7 Days #7 tab 08/06/20 [Rx Last Taken Unknown] hydrocodone-acetaminophen 1 tab PO Q6H PRN PRN 3 Days #10 tablet 08/06/20 [Rx Last Taken Unknown] Allergy/AdvReac Type Severity Reaction Status Date / Time No Known Allergies Allergy Verified 08/06/20 11:43 Surgical History History of appendectomy History of cholecystectomy History of tubal ligation Social History Smoking Status: Current every day smoker tobacco type: cigarettes ROS ROS ED Constitutional Constitutional ED: Denies chills or fever(s) Eyes Eyes: Denies change in vision ENT ENT ED: Denies epistaxis or rhinorrhea Cardiovascular Cardiovascular: Denies chest pain or palpitations Respiratory/Chest Respiratory/Chest: Denies cough, dyspnea or dyspnea on exertion Gastrointestinal Gastrointestinal: Denies abdominal pain, diarrhea, nausea or vomiting Genitourinary Genitourinary ED: Denies dysuria, hematuria or urinary frequency Musculoskeletal Musculoskeletal: Reports back pain, muscle weakness and radiating pain into limb; Denies joint swelling or neck pain Integumentary Denies rash Neurologic Neurologic: Denies dizziness, headache(s) or weakness EXAM Physical Exam Const Vital Signs: 08/06/20 11:44 08/06/20 13:49 Temperature 97.2 F L Temperature Source Temporal Pulse Rate 88 80 Respiratory Rate 16 18 Blood Pressure 122/77 H 120/78 Blood Pressure Mean 92 Pulse Ox 96 98 Oxygen Delivery Method Room Air Positive well nourished and well developed General Appearance ED: well developed and NAD HEENT Reports normocephalic, head/scalp atraumatic and moist mucous membranes Eyes PERRL and EOMs intact bilaterally Neck no lymphadenopathy and supple General: Negative for tenderness Chest Wall inspection of chest normal Resp normal respiratory effort and clear to auscultation bilaterally Auscultation: Negative for rales, rhonchi or wheezes Cardio regular rate, regular rhythm and no murmurs GI normal to inspection, nondistended, normoactive bowel sounds and non-tender Palpation: soft; Negative for guarding or rebound tenderness present Back/Spine no CVA tenderness, normal ROM and normal to inspection Back/Spine Narrative: Symmetrical patellar reflexes bilaterally. 5 out of 5 muscle strength lower extremities. Sensation intact. Brisk capillary refill. Lumbar Spine / Lower Back: normal to inspection, pain with ROM, paraspinal muscle tenderness right and paraspinal muscle spasm right Extremity normal to inspection General Extremety ED: Negative for edema or tenderness General Extremity: Negative for edema Neuro oriented x3, CN's II-XII intact bilaterally and no sensory deficits noted Sensorium / Orientation: alert Motor Exam: strength 5/5 throughout Psych mental status grossly normal Skin no rashes or lesions noted MDM MDM MDM Narrative Medical decision making narrative: Patient presents to the ED for nontraumatic low back pain radiating to the right leg. She was seen for the same complaint. Has been getting worse. She has not been able to follow-up with the spine surgeon. Patient requesting pain medications that she was prescribed at last ED visit. After treatment with a dose of morphine and Toradol she does feel like the pain is manageable. We will write a prescription for baclofen and [place] to take as needed. She needs to keep her appointment with the spine doctor. If she develops any worsening symptoms or red flag symptoms that we discussed including saddle anesthesia, urinary retention, systemic symptoms she is to return to the emergency department. She understands and is agreeable this plan. Discharged home in stable condition. All questions were answered. Patient given work restrictions as well per her request. Discharge Plan Triage Chief Complaint: Back ED Provider: Casey Theodore Dx/Rx/DC Orders Clinical Impression: Low back pain radiating down leg Instructions: ED Sciatica Prescriptions: New hydrocodone-acetaminophen 5-325 mg tablet 1 tab PO Q6H PRN PRN (Reason: Pain) 3 Days Qty: 10 RF: 0 baclofen 10 mg tablet 10 mg PO QHS 7 Days Qty: 7 RF: 0 No Action albuterol sulfate [Ventolin HFA] 1 INHALER inhaler 1 - 2 puff inhalation Q4H PRN PRN (Reason: Wheezing) Qty: 1 RF: 0 spironolactone 25 MG tablet 25 mg PO DAILY Qty: 30 RF: 0 [employer] 1 EACH tablet 1 tab PO DAILY RF: 0 ibuprofen 200 MG tablet 800 mg PO PRN PRN (Reason: Pain) RF: 0 fluoxetine 10 MG capsule 40 mg PO DAILY RF: 0 amitriptyline 10 MG tablet 20 mg PO QHS RF: 0 lurasidone 20 mg tablet 20 mg PO DAILY RF: 0 Valacyclovir Hcl [Valtrex] 1,000 MG tablet 2,000 mg PO BID Qty: 4 RF: 0 fluticasone propion-salmeterol 1 EACH blister with device 1 ea IH BID RF: 0 fluconazole 100 MG tablet 100 mg PO DAILY Qty: 1 RF: 0 hydrocodone-acetaminophen [hydrocodone-acetaminophen] 1 TABLET tablet 1 tab PO Q6H PRN PRN (Reason: Pain) 3 Days Qty: 10 RF: 0 bupropion HCl 150 mg tablet extended release 24 hr 150 mg PO DAILY RF: 0 ketorolac 10 mg tablet 10 mg PO TID 5 Days Qty: 15 RF: 0 prednisone 20 MG tablet 60 mg PO DAILY Qty: 15 RF: 0 oxycodone-acetaminophen [Percocet] 5-325 mg tablet 1 tab PO Q6H PRN (Reason: pain) 3 Days Qty: 12 RF: 0 diazepam [diazepam] 5 MG tablet 5 mg PO Q8 PRN (Reason: Muscle Spasm) Qty: 15 RF: 0 Primary Care Provider: Sobeida Berger Referrals: Sobeida Berger MD [Primary Care Provider] - 3-5 Days Disposition Disposition: Home, self care Discharge Date/Time: 08/06/20 13:51
[2020-08-06] MEDS: Ketorolac 30 MG/ML Syringe IM (12:32)
[2020-08-06] MEDS: Morphine 4 MG/ML Syringe IM (12:33)
[2020-08-06 13:49] VITALS: BP 120/78; PULSE 80; RESP 18; O2SAT 98
== END 2020-08-06 13:51 | disposition home or self-care (01) ==
LOC: ED 12:49
PROVIDERS: Emergency Provider Emergency Medicine; PCP Internal Medicine
DX: M54.5 Low back pain (principal); F17.210 Nicotine dependence, cigarettes, uncomplicated; J44.9 Chronic obstructive pulmonary disease, unspecified
CPT/HCPCS: 96372; 99283; A4216

== ENCOUNTER → 2020-08-27 07:48 | Outpatient (CLI) | payer MEDICAID, SELFPAY ==
[2020-08-06 11:44] VITALS: BMI 43.5
--- NOTE | 2020-08-27 07:50 | MRI_ITS ---
EXAM: MR LUMBAR SPINE WITHOUT INTRAVENOUS CONTRAST : 1975 CLINICAL INDICATION: low back pain, radicular syndrome TECHNIQUE: Multiplanar and multisequence MR images of the lumbar spine without intravenous contrast. This report was created using [employer] report generation technology. 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 Vertebral body heights are preserved. Normal alignment. No spondylolisthesis. There is preservation of the normal lumbar lordosis. INTERSPACES: Loss of the normal T2 signal intensity of the L3-4 and L4-5 intervertebral disc related to desiccation associated with mild disc space narrowing. SPINAL CORD: Unremarkable. Normal position and signal intensity of the conus medullaris. SOFT TISSUES: Unremarkable. DISCS/SPINAL CANAL/NEURAL FORAMINA: L1-L2: Unremarkable. Normal disc height and morphology. Normal spinal canal, lateral recesses and neuroforamina. L2-L3: Unremarkable. Normal disc height and morphology. Normal spinal canal, lateral recesses and neuroforamina. L3-L4: Decreased T2 signal intensity of the disc associated with mild disc space narrowing. Normal spinal canal, lateral recesses and neuroforamina. L4-L5: Decreased T2 signal intensity of the in the disc skated with mild disc space narrowing. Left posterolateral disc protrusion at L4-5 causes narrowing of the adjacent neural foramen. L5-S1: Unremarkable. Normal disc height and morphology. Normal spinal canal, lateral recesses and neuroforamina. MRI/Spine Lumbar (Routine) IMPRESSION: 1. Narrowing of the left L4-5 neural foramen secondary to localized disc herniation. 2. No evidence of spinal stenosis. at 0910 Reported and signed by: Lloyd Lyons MD Electronically Signed: Llody Lyons MD at 9:09 EDT Tel , Service support ,
== END ==
PROVIDERS: PCP Internal Medicine; Referring Provider Orthopaedic Surgery; Visit Provider Orthopaedic Surgery
DX: M54.5 Low back pain (principal); M54.16 Radiculopathy, lumbar region
CPT/HCPCS: 72148

== ENCOUNTER 2020-09-20 18:33 | Emergency (ER) | payer MEDICAID, SELFPAY ==
[2020-08-29 08:13] VITALS: BMI 43.5
[2020-09-20 18:34] VITALS: BP 122/71; PULSE 82; RESP 16; TEMP 36.4; O2SAT 95; BMI 43.0
--- NOTE | 2020-09-20 18:57 | ED.RN ---
PT STATES THERE IS NO WAIT AT [facility] AND SHE IS GOING TO LEAVE.
== END 2020-09-20 18:58 | disposition left against medical advice (07) ==
LOC: ED 18:57
PROVIDERS: PCP Internal Medicine
DX: Z53.21 Procedure and treatment not carried out due to patient leaving prior to being seen by health care provider (principal)

== ENCOUNTER 2020-09-22 15:57 | Emergency (ER) | payer MEDICAID, SELFPAY ==
[2020-09-22 15:59] VITALS: BP 110/77; PULSE 79; RESP 14; TEMP 37.1; O2SAT 99; BMI 41.8
--- NOTE | 2020-09-22 16:22 | ED.VIS.BACK ---
HPI History of Present Illness Chief Complaint: Back Detail of Chief Complaint: Acute on chronic low back pain Informant: patient Onset/Context/Timing Onset: Days Context: Gradual Onset Timing: Continuous Quality: Sharp Current Severity: Mild Maximum Severity: Moderate Associated Symptoms Associated Symptoms: Radiation to Right Leg; Negative for Numbness, Tingling, Radiation to Left Leg, Fever, Abdominal Pain, Dysuria, Unable to Ambulate, Unable to Transfer, Urinary Retention, Urinary Incontinence, Constipation and Fecal Incontinence Narrative Narrative: 45-year-old female known lumbar disc disease pending low back surgery in November. With Dr. Avery. Complaining of worse pain. Denies any fall, trauma, fever. No bowel or bladder incontinence. Able to urinate. Denies any weakness or numbness to her lower extremity. At times has pain going to her right groin and right hamstring. Prior similar symptoms: Yes Recent Illness/Hospitalization: No PFSH PFS Medical History Carpal tunnel syndrome Chronic pain COPD (chronic obstructive pulmonary disease) Herniated cervical disc Ulnar nerve laceration Home Medications albuterol sulfate [Ventolin HFA] 1 - 2 puff INHALATION Q4H PRN PRN #1 inhaler 07/21/15 [Rx Last Taken 10/13/17] spironolactone 25 mg PO DAILY #30 tab 08/21/16 [Rx Last Taken 10/15/17] ibuprofen 800 mg PO PRN PRN 10/16/17 [History Last Taken 10/16/17] [id number] [[employer] Mv Tablet] 1 tab PO DAILY 10/16/17 [History Last Taken 10/15/17] Valacyclovir Hcl [Valtrex] 2,000 mg PO BID #4 tab 12/01/19 [Rx Last Taken Unknown] fluticasone propion-salmeterol 1 ea IH BID 02/25/20 [History Last Taken Unknown] fluconazole 100 mg PO DAILY #1 tab 05/30/20 [Rx Last Taken Unknown] bupropion HCl 150 mg PO DAILY 07/20/20 [History Last Taken Unknown] diazepam 5 mg PO Q8 PRN #15 tab 07/20/20 [Rx Last Taken Unknown] ketorolac 10 mg PO TID 5 Days #15 tab 07/20/20 [Rx Last Taken Unknown] baclofen 10 mg PO QHS 7 Days #7 tab 08/06/20 [Rx Last Taken Unknown] oxycodone-acetaminophen [Percocet] 1 tab PO Q6H PRN 5 Days #10 tab 09/22/20 [Rx Last Taken Unknown] Allergy/AdvReac Type Severity Reaction Status Date / Time hydrocodone Allergy Intermediate Hives Verified 09/22/20 15:59 Surgical History History of appendectomy History of cholecystectomy History of tubal ligation Social History Smoking Status: Current every day smoker tobacco type: cigarettes ROS ROS ED ROS Narrative Denies recent illness. Review of Systems ROS Unobtainable: Denies due to encephalopathy Constitutional Constitutional ED: Denies chills or fever(s) Eyes Eyes: Denies change in vision ENT ENT ED: Denies ear pain or sore throat Cardiovascular Cardiovascular: Denies chest pain Respiratory/Chest Respiratory/Chest: Denies dyspnea or dyspnea on exertion Gastrointestinal Gastrointestinal: Denies abdominal pain, diarrhea, nausea or vomiting Genitourinary Genitourinary ED: Denies dysuria or hematuria Musculoskeletal Musculoskeletal: Reports back pain; Denies myalgias Integumentary Denies rash Neurologic Neurologic: Denies headache(s) Psychiatric Psychiatric: Denies depression Endocrine Endocrinology: Denies polyuria Hematologic/Lymphatic Hematologic/Lymphatic: Denies easy bruising Allergic/Immunologic Allergic/Immunologic ED: Denies urticaria EXAM Physical Exam Narrative Exam Narrative: Well-appearing middle-aged female no acute distress vital signs stable afebrile. Complaint back pain. Exam unremarkable. Lungs are clear. Heart regular in rhythm. Abdomen soft nontender. Extremities moves all 4. Neurovascular intact. Both lower extremities have normal sensation and motor strength. No cauda equina. No saddle anesthesia. Normal medial thigh sensation. Dorsi plantar flexion intact. Able to lift either leg with raising the right leg she has a mild straight leg raise with pain in her right SI joint and hamstring.. There is no motor or sensory weakness or loss. Back exam spine is nontender however there is right SI tenderness. Const Vital Signs: 09/22/20 15:59 Temperature 98.7 F Temperature Source Temporal Pulse Rate 79 Respiratory Rate 14 Blood Pressure 110/77 Blood Pressure Mean 88 Pulse Ox 99 Oxygen Delivery Method Room Air Positive well nourished and well developed General Appearance ED: well developed HEENT Reports moist mucous membranes Negative for trauma or tenderness Eyes PERRL and EOMs intact bilaterally Neck no lymphadenopathy, supple and no JVD General: Negative for tenderness Resp normal respiratory effort and clear to auscultation bilaterally Cardio regular rate, regular rhythm, S1 normal heart sound, S2 normal heart sound and no murmurs GI normal to inspection, nondistended, normoactive bowel sounds, soft to palpation, non-tender, non-distended and no masses Palpation: Negative for tender Back/Spine normal to inspection Back/Spine Narrative: Right SI tenderness. Extremity normal to inspection; Negative for no clubbing, cyanosis or edema General Extremety ED: Negative for edema or tenderness General Extremity: Negative for edema Psych mental status grossly normal Skin no rashes or lesions noted and no wounds MDM MDM MDM Narrative Medical decision making narrative: Patient has a known degenerative disc disease in her lumbar spine. Pending surgery. She does not have cauda equina. Should be treated with IM Dilaudid and Toradol. Discharged home with limited Percocet. Follow-up with her spine surgeon on Thursday.. Lab Data Attestation: I reviewed the patient's lab results. Discharge Plan Triage Chief Complaint: Back ED Provider: Stanton Car Dx/Rx/DC Orders Clinical Impression: Low back pain radiating down leg, Hx of degenerative disc disease Instructions: ED Back Pain (Acute or Chronic) Prescriptions: New oxycodone-acetaminophen [Percocet] 7.5-325 mg tablet 1 tab PO Q6H PRN (Reason: pain) 5 Days Qty: 10 RF: 0 No Action albuterol sulfate [Ventolin HFA] 1 INHALER inhaler 1 - 2 puff inhalation Q4H PRN PRN (Reason: Wheezing) Qty: 1 RF: 0 spironolactone 25 MG tablet 25 mg PO DAILY Qty: 30 RF: 0 [employer] 1 EACH tablet 1 tab PO DAILY RF: 0 ibuprofen 200 MG tablet 800 mg PO PRN PRN (Reason: Pain) RF: 0 Valacyclovir Hcl [Valtrex] 1,000 MG tablet 2,000 mg PO BID Qty: 4 RF: 0 fluticasone propion-salmeterol 1 EACH blister with device 1 ea IH BID RF: 0 fluconazole 100 MG tablet 100 mg PO DAILY Qty: 1 RF: 0 bupropion HCl 150 mg tablet extended release 24 hr 150 mg PO DAILY RF: 0 ketorolac 10 mg tablet 10 mg PO TID 5 Days Qty: 15 RF: 0 diazepam [diazepam] 5 MG tablet 5 mg PO Q8 PRN (Reason: Muscle Spasm) Qty: 15 RF: 0 baclofen 10 mg tablet 10 mg PO QHS 7 Days Qty: 7 RF: 0 Primary Care Provider: Sobeida Berger Referrals: Sobeida Berger MD [Primary Care Provider] - Gael Avery DO [STAFF PHYSICIAN] - As soon as possible Activity Restrictions/Additional Instructions: Follow-up with your spine surgeon on Thursday. Limited Percocet and Motrin for pain. Prednisone daily. Return if significantly worse pain, bowel or bladder incontinence or leg weakness. Disposition Disposition: Home, Self Care
[2020-09-22] MEDS: HYDROmorphone 1 MG/ML Syringe IM (16:32)
[2020-09-22] MEDS: Ketorolac 60 MG/2 ML Vial IM (16:36)
[2020-09-22 16:50] VITALS: BP 126/77; PULSE 62; RESP 15; O2SAT 97
== END 2020-09-22 16:51 | disposition home or self-care (01) ==
LOC: ED 16:40
PROVIDERS: Emergency Provider Emergency Medicine; PCP Internal Medicine
DX: M54.5 Low back pain (principal); G89.29 Other chronic pain; J44.9 Chronic obstructive pulmonary disease, unspecified; F17.210 Nicotine dependence, cigarettes, uncomplicated; Z79.51 Long term (current) use of inhaled steroids; Z79.899 Other long term (current) drug therapy
CPT/HCPCS: 96372; 99282

== ENCOUNTER 2020-11-10 17:41 | Emergency (ER) | payer MEDICAID, SELFPAY ==
[2020-11-10 17:43] VITALS: BP 131/89; PULSE 94; RESP 18; TEMP 36.2; O2SAT 96; BMI 42.5
[2020-11-10 17:55] VITALS: BP 125/72; PULSE 80; RESP 16; O2SAT 96
[2020-11-10 17:56] VITALS: O2SAT 97
--- NOTE | 2020-11-10 17:56 | EKG12_ITS ---
Test Reason : CHEST TIGHTNESS Blood Pressure : / mmHG Vent. Rate : 078 BPM Atrial Rate : 078 BPM P-R Int : 164 ms QRS Dur : 076 ms QT Int : 370 ms P-R-T Axes : 027 080 022 degrees QTc Int : 421 ms Normal sinus rhythm Normal ECG Confirmed by SAVITA ENCISO, GIN ([id number]), sound editor TELLO SCHUMACHER ([id number]) on 11/14/2020 9:02:28 AM Referred By: MARBIN Confirmed By:GIN BARNEY MD
--- NOTE | 2020-11-10 18:22 | RAD_ITS ---
STUDY: X-RAY CHEST REASON FOR EXAM: Female, 45 years old. Cough TECHNIQUE: Frontal view COMPARISON: 02/25/2020 FINDINGS: The lungs are clear and expanded. There is no demonstrated pleural abnormality. Normal size heart. Normal mediastinum and violetta. Normal visualized pulmonary arteries. Normal visualized aortic arch and descending thoracic aorta. Normal visualized thoracic spine. Normal visualized ribs, clavicles, and shoulders. There is no demonstrated abnormality of the visualized soft tissue structures of the upper abdomen. RAD/Chest 1 View (Portable) IMPRESSION: Normal x-ray examination of the chest. Electronically Signed: Gerardo Sutherland DO at 20:28 EDT Tel [phone], Service support ,
--- NOTE | 2020-11-10 18:23 | RAD_ITS ---
STUDY: X-RAY - LUMBAR SPINE REASON FOR EXAM: Female, 45 years old. Injury/Pain TECHNIQUE: 2 view(s) of the lumbar spine were obtained. COMPARISON: None FINDINGS: Normal lumbar lordosis. There is no substantial scoliosis. There is a normal alignment of the vertebrae. Normal vertebral bodies and endplates. Normal disc space heights. The soft tissue structures are unremarkable. RAD/Lumbar Spine 2 or 3 Views IMPRESSION: Normal x-ray examination of the lumbar spine. Electronically Signed: Gerardo Sutherland DO at 20:28 EDT Tel [phone], Service support ,
--- NOTE | 2020-11-10 18:23 | RAD_ITS ---
STUDY: X-RAY - LEFT ANKLE REASON FOR EXAM: Female, 45 years old. Injury/Pain TECHNIQUE: 3 view(s) of the ankle. COMPARISON: None. FINDINGS: Normal visualized distal tibia and fibula. Normal medial and lateral malleoli. Normal tibiotalar articulation and ankle mortise. Normal visualized talus and calcaneus. The visualized subtalar, talonavicular, calcaneocuboid and tarsal articulations are normal. Mild soft tissue edema. RAD/Ankle min 3 Views IMPRESSION: Mild soft tissue edema of the ankle. Electronically Signed: Gerardo Sutherland DO at 20:33 EDT Tel [phone], Service support ,
--- NOTE | 2020-11-10 18:30 | EDS_ITS ---
HPI History of Present Illness Chief Complaint: Back Informant: patient Onset/Context/Timing Onset: Days (2) Context: Gradual Onset Timing: Continuous Quality: Sharp, dull, aching, burning Location: Right lower lumbar area, left ankle Worsened by: Laying down, sitting, standing Relieved by: Nothing Narrative Narrative: Patient presents with pain in her low back, right hip, and left ankle that has been getting worse over the past 2 days. Patient denies any trauma or injury. Patient states she has a history of herniated lumbar disks and is scheduled for surgery on November 22. Patient states she has been favoring her right side which has caused her to have pain in her left ankle area. Patient states she has pain in her right low back which radiates to her right hip and right groin area. Patient states her pain is worse with laying down, sitting up, standing up. Patient also states she was recently exposed to COVID-19 and is concerned that she might have that. Patient admits to some mild shortness of breath and nausea with that. [facility] Medical History Carpal tunnel syndrome Chronic pain COPD (chronic obstructive pulmonary disease) Herniated cervical disc Ulnar nerve laceration Home Medications albuterol sulfate [Ventolin HFA] 1 - 2 puff INHALATION Q4H PRN PRN #1 inhaler 07/21/15 [Rx Last Taken 10/13/17] ibuprofen 800 mg PO PRN PRN 10/16/17 [History Last Taken 10/16/17] [id number] [[employer] Mv Tablet] 1 tab PO DAILY 10/16/17 [History Last Taken 10/15/17] bupropion HCl 150 mg PO DAILY 07/20/20 [History Last Taken Unknown] fluoxetine [Prozac] 40 mg PO DAILY 11/10/20 [History Last Taken Unknown] oxycodone-acetaminophen 1 tab PO Q6H PRN PRN 3 Days #12 tablet 11/10/20 [Rx Last Taken Unknown] Allergy/AdvReac Type Severity Reaction Status Date / Time hydrocodone Allergy Intermediate Hives Verified 11/10/20 17:42 Surgical History History of appendectomy History of cholecystectomy History of tubal ligation Social History Smoking Status: Current every day smoker tobacco type: cigarettes ROS ROS ED Constitutional Constitutional ED: Denies chills or fever(s) Eyes Eyes: Denies blurry vision or change in vision ENT ENT ED: Denies rhinorrhea or sore throat Cardiovascular Cardiovascular: Denies chest pain or palpitations Respiratory/Chest Respiratory/Chest: Reports dyspnea; Denies cough Gastrointestinal Gastrointestinal: Reports nausea; Denies vomiting Genitourinary Genitourinary ED: Denies dysuria or hematuria Musculoskeletal Musculoskeletal: Reports back pain; Denies neck pain Integumentary Denies abscess or rash Neurologic Neurologic: Reports weakness; Denies headache(s) Allergic/Immunologic Allergic/Immunologic ED: Denies mouth swelling or urticaria EXAM Physical Exam Const Vital Signs: 11/10/20 17:43 11/10/20 17:55 11/10/20 17:56 Temperature 97.2 F L Temperature Source Temporal Pulse Rate 94 80 Respiratory Rate 18 16 Respiratory Effort Normal Respiratory Depth Normal Respiratory Pattern Normal Blood Pressure 131/89 H 125/72 H Blood Pressure Mean 103 89 Pulse Ox 96 96 Oxygen Delivery Method Room Air Room Air Room Air 11/10/20 20:02 11/10/20 20:45 Temperature Temperature Source Pulse Rate 71 67 Respiratory Rate 17 15 Respiratory Effort Respiratory Depth Respiratory Pattern Blood Pressure 109/66 106/72 Blood Pressure Mean 80 83 Pulse Ox 99 99 Oxygen Delivery Method Room Air Room Air Positive well nourished, well developed and obese General Appearance ED: well developed Nutritional Appearance: obese HEENT Reports moist mucous membranes Neck supple and no JVD Resp normal respiratory effort and clear to auscultation bilaterally Cardio regular rate and regular rhythm GI normal to inspection, nondistended, normoactive bowel sounds and non-tender Palpation: soft Back/Spine Back/Spine Narrative: There is tenderness over the right lower lumbar paraspinal muscles. There is tenderness over the right sciatic notch. There is no edema or ecchymosis. There is no bony crepitance or step-off. Straight leg raises were negative bilaterally. Strength is 5/5 bilaterally in the lower extremities. There are no sensory deficits. Extremity Extremity Narrative: There is tenderness over the medial aspect of the left ankle and midfoot. There is no edema or ecchymosis. There is no bony crepitance or step-off. There is good range of motion. Pedal pulses are equal bilaterally. Sensation was intact to light touch in all digits. Neuro oriented x3, CN's II-XII intact bilaterally and no sensory deficits noted Sensorium / Orientation: alert Motor Exam: strength 5/5 throughout Psych mental status grossly normal MDM MDM MDM Narrative Medical decision making narrative: EKG was obtained. On my interpretation, it showed a normal sinus rhythm with a rate of 78. RI interval, QRS interval, and QTc intervals were all normal. [place] was normal. There are no acute ST or T wave changes. Portable 1 view chest x-ray was obtained. On my interpretation, lung lakhani are clear. There is normal cardiac silhouette. Bony thorax is normal. There is no acute process noted. Radiologist also interpreted the x- ray and agrees. X-rays of the left ankle were obtained. There are 3 views. On my interpretation, there is no acute fracture. There is no dislocation. There is some mild soft tissue swelling. Radiologist also interpreted the x-rays and agrees. X-rays of the lumbar spine were obtained. There are 3 views. There are some degenerative changes. There is no acute fracture or spondylolisthesis. These were interpreted by myself. Radiologist also interpreted the x-rays and agrees. Patient was given 2 doses of morphine here. CBC and comprehensive met abolic profile were obtained and were within normal limits. Patient was given a prescription for a short course of Percocet. Patient was instructed to follow- up with her primary care physician in 3 to 5 days. Patient was instructed return if worse in any way. Patient understood and was agreeable with the plan. All questions were answered. Lab Data Attestation: I reviewed the patient's lab results. Labs: Laboratory Results - last 24 hr 11/10/20 11/10/20 18:45 18:45 WBC 9.2 RBC 4.62 Hgb 12.7 Hct 40.8 MCV 88.3 MCH 27.5 MCHC 31.1 L RDW Std Deviation 42.5 RDW Coeff of Bianca 13.2 Plt Count 320 MPV 9.7 Immature Gran % (Auto) 0.400 Neut % (Auto) 70.2 H Lymph % (Auto) 22.4 [place] % (Auto) 6.1 Eos % (Auto) 0.7 Baso % (Auto) 0.2 Absolute Neuts (auto) 6.5 Absolute Lymphs (auto) 2.06 Nucleated RBC % 0 Sodium 136 Potassium 3.9 Chloride 101 Carbon Dioxide 28.0 Anion Gap 7 BUN 9 Creatinine 0.50 L Estim Creat Clear Calc 116.30 Est GFR (MDRD) Af Amer 172 Est GFR (MDRD) Non-Af 142 BUN/Creatinine Ratio 18.1 Glucose 86 Calcium 9.4 Total Bilirubin 0.40 AST 18 ALT 32 Alkaline Phosphatase 86 Total Protein 7.8 Albumin 3.5 Globulin 4.3 H Albumin/Globulin Ratio 0.8 L Radiography Diagnostic Testing: Radiology Impression Chest X-Ray 11/10/20 18:22 IMPRESSION: Normal x-ray examination of the chest. Electronically Signed: Gerardo Sutherland DO at 20:28 EDT Tel [phone], Service support , Ankle X-Ray 11/10/20 18:23 IMPRESSION: Mild soft tissue edema of the ankle. Electronically Signed: Gerardo Sutherland DO at 20:33 EDT Tel [phone], Service support , Lumbar Spine X-Ray 11/10/20 18:23 IMPRESSION: Normal x-ray examination of the lumbar spine. Electronically Signed: Gerardo Sutherland DO at 20:28 EDT Tel [phone], Service support , EKG Initial EKG: Attestation: I personally reviewed and interpreted this EKG as follows: Interpretation: Sinus Rhythm (78) and No Acute Injury Pattern Discharge Plan Triage Chief Complaint: Back Other Complaint: Cough Lower Extremity Injury Nausea/Vomiting Shortness of Breath ED Provider: Brayan Guzmán Dx/Rx/DC Orders Clinical Impression: Sciatica of right side, Acute pain of left foot Instructions: ED Foot Sprain, ED Sciatica Prescriptions: New oxycodone-acetaminophen [oxycodone-acetaminophen] 1 TABLET tablet 1 tab PO Q6H PRN PRN (Reason: Pain) 3 Days Qty: 12 RF: 0 No Action albuterol sulfate [Ventolin HFA] 1 INHALER inhaler 1 - 2 puff inhalation Q4H PRN PRN (Reason: Wheezing) Qty: 1 RF: 0 [employer] 1 EACH tablet 1 tab PO DAILY RF: 0 ibuprofen 200 MG tablet 800 mg PO PRN PRN (Reason: Pain) RF: 0 bupropion HCl 150 mg tablet extended release 24 hr 150 mg PO DAILY RF: 0 fluoxetine [Prozac] 40 mg Capsule 40 mg PO DAILY RF: 0 Primary Care Provider: Sobeida Berger Referrals: Sobeida Berger MD [Primary Care Provider] - 3-5 Days Disposition Disposition: Home, Self Care
[2020-11-10] MEDS: Morphine 4 MG/ML Syringe IV ×2 (18:49→20:44)
[2020-11-10 18:52] LABS: Absolute Lymphocyte Count 2.06 X10^3/uL (0.83-4.51); Absolute Neutrophil Count 6.5 X10^3/uL (2.0-7.7); Basophil# 0.02 X10^3/uL; Basophil% 0.2 % (0-1); Eosinophil# 0.06 X10^3/uL; Eosinophils% 0.7 % (0-5); Hematocrit 40.8 % (37-47); Hemoglobin 12.7 g/dL (12.0-15.0); Lymphocyte # 2.06 X10^3/ul (0.83-4.51); Lymphocyte % 22.4 % (19-41); Mean Corp Hgb Conc 31.1 g/dL (32-36); Mean Corpuscular Hgb 27.5 pg (27.0-32.0); Mean Corpuscular Volume 88.3 fL (81-99); Mean Platelet Vol. 9.7 fl (6.2-12.0); Monocyte# 0.56 X10^3/uL; Monocyte% 6.1 % (0-10); NRBC Flagged by Analyzer 0 % (0-5); Neutrophil # 6.47 X10^3/uL (2.7-7.7); Neutrophil % 70.2 % (47-70); Platelet Count 320 K/mm3 (150-450); RBC Distribution Width CV 13.2 % (11.6-14.6); RBC Distribution Width SD 42.5 fl (35.1-43.9); Red Blood Count 4.62 M/mm3 (4.2-5.4); White Blood Count 9.2 K/mm3 (4.4-11.0)
[2020-11-10 19:08] LABS: ALB/GLOB Ratio 0.8 RATIO (0.9-2.4); AST(SGOT) 18 U/L (15-37); Alanine Aminotransfer ALT/SGPT 32 U/L (13-56); Albumin, Serum 3.5 g/dL (3.2-5.0); Alkaline Phosphatase 86 U/L (45-117); Anion Gap 7 (5-15); BUN 9 mg/dL (7-18); BUN/Creat Ratio 18.1 RATIO (10-20); Calcium,Total 9.4 mg/dL (8.5-10.1); Chloride 101 mmol/L (98-107); EST Glomerular Filtration Rate 142 mL/min (>60); Est Glom Filt Rate - Afr Amer 172 mL/min (>60); Globulin 4.3 g/dL (2.2-4.2); Glucose 86 mg/dL (74-106); Potassium 3.9 mmol/L (3.5-5.1); Protein, Total 7.8 g/dL (6.4-8.2); Sodium Level 136 mmol/L (136-145)
[2020-11-10 20:02] VITALS: BP 109/66; PULSE 71; RESP 17; O2SAT 99
[2020-11-10 20:45] VITALS: BP 106/72; PULSE 67; RESP 15; O2SAT 99
== END 2020-11-10 21:29 | disposition home or self-care (01) ==
PROVIDERS: Emergency Provider Emergency Medicine; PCP Internal Medicine
DX: M54.41 Lumbago with sciatica, right side (principal); M79.672 Pain in left foot; M51.26 Other intervertebral disc displacement, lumbar region; G89.29 Other chronic pain; J44.9 Chronic obstructive pulmonary disease, unspecified; E66.9 Obesity, unspecified; F17.210 Nicotine dependence, cigarettes, uncomplicated; Z20.822 Contact with and (suspected) exposure to COVID-19; Z79.899 Other long term (current) drug therapy
CPT/HCPCS: 71045; 72100; 73610; 80053; 85025; 87426; 93005; 96374; 96376; 99284; A4216

== ENCOUNTER 2020-11-23 11:16 | Inpatient (IN) | payer MEDICAID, SELFPAY ==
[2020-08-29 08:13] VITALS: BMI 43.5
--- NOTE | 2020-11-13 10:29 | EKG12_ITS ---
Test Reason : PREOP Blood Pressure : / mmHG Vent. Rate : 073 BPM Atrial Rate : 073 BPM P-R Int : 164 ms QRS Dur : 088 ms QT Int : 396 ms P-R-T Axes : 036 076 047 degrees QTc Int : 436 ms Normal sinus rhythm Normal ECG Confirmed by SAVITA ENCISO, GIN ([id number]), video editor TELLO SCHUMACHER ([id number]) on 11/14/2020 8:51:40 AM Referred By: Gael Avery Confirmed By:GIN BARNEY MD
[2020-11-13 11:28] LABS: Absolute Neutrophil Count 5.4 X10^3/uL (2.0-7.7); Basophil# 0.03 X10^3/uL; Basophil% 0.4 % (0-1); Eosinophil# 0.11 X10^3/uL; Eosinophils% 1.4 % (0-5); Hematocrit 38.4 % (37-47); Hemoglobin 12.1 g/dL (12.0-15.0); Lymphocyte % 24.8 % (19-41); Mean Corp Hgb Conc 31.5 g/dL (32-36); Mean Corpuscular Hgb 27.9 pg (27.0-32.0); Mean Corpuscular Volume 88.5 fL (81-99); Mean Platelet Vol. 9.6 fl (6.2-12.0); Monocyte# 0.47 X10^3/uL; Monocyte% 5.8 % (0-10); NRBC Flagged by Analyzer 0 % (0-5); Neutrophil # 5.43 X10^3/uL (2.7-7.7); Neutrophil % 67.2 % (47-70); Platelet Count 278 K/mm3 (150-450); RBC Distribution Width CV 13.1 % (11.6-14.6); RBC Distribution Width SD 42.5 fl (35.1-43.9); Red Blood Count 4.34 M/mm3 (4.2-5.4); White Blood Count 8.1 K/mm3 (4.4-11.0)
[2020-11-13 11:41] LABS: Prothrombin Time (Protime)PT. 12.4 SECONDS (11.7-14.9)
[2020-11-13 11:42] LABS: Partial Thromboplast Time 28.4 Seconds (24.1-36.2)
[2020-11-13 11:51] LABS: Anion Gap 3 (5-15); BUN 11 mg/dL (7-18); BUN/Creat Ratio 21.9 RATIO (10-20); Chloride 107 mmol/L (98-107); EST Glomerular Filtration Rate 140 mL/min (>60); Est Glom Filt Rate - Afr Amer 170 mL/min (>60); Glucose 93 mg/dL (74-106); Potassium 3.9 mmol/L (3.5-5.1); Sodium Level 137 mmol/L (136-145)
[2020-11-13 12:01] LABS: AST(SGOT) 21 U/L (15-37); Alanine Aminotransfer ALT/SGPT 34 U/L (13-56); Albumin, Serum 3.6 g/dL (3.2-5.0); Alkaline Phosphatase 88 U/L (45-117); Bilirubin, Direct 0.05 mg/dL (0.00-0.30); Globulin 4.2 g/dL (2.2-4.2); Protein, Total 7.8 g/dL (6.4-8.2)
[2020-11-13 13:03] LABS: HIV - WCH Non-Reactive (Nonreactive); Hepatitis B Surface Antibody Reactive; Hepatitis C Antibody Preliminary Reactive (Nonreactive)
[2020-11-14 08:43] LABS: Hepatitis A AB, Total Positive (Negative)
--- NOTE | 2020-11-21 12:09 | PCM.HP.BLA ---
History and Physical Date of Admission: 11/22/20 [facility] [id number] [facility] [address] [place] [address] [phone] OFFICE VISITDate of Service: 08/13/20 MR#:[id number]: TRACY ESPANARep #[id number] Provider:Dr. Gael Avery, Age/Sex: 45/F Location:Mili:Signed Intake Intake Visit Reasons: Lumbar Spine Allergies No Known Allergies Allergy (Verified 08/06/20 11:43) Medications albuterol sulfate [Ventolin HFA] 1 - 2 puff INHALATION Q4H PRN PRN #1 inhaler 07/21/15 [Rx Confirmed 08/13/20] spironolactone 25 mg PO DAILY #30 tab 08/21/16 [Rx Confirmed 08/13/20] ibuprofen 800 mg PO PRN PRN 10/16/17 [History Confirmed 08/13/20] [id number] [[employer] Mv Tablet] 1 tab PO DAILY 10/16/17 [History Confirmed 08/13/20] Valacyclovir Hcl [Valtrex] 2,000 mg PO BID #4 tab 12/01/19 [Rx Confirmed 08/13/20] fluticasone propion-salmeterol 1 ea IH BID 02/25/20 [History Confirmed 08/13/20] fluconazole 100 mg PO DAILY #1 tab 05/30/20 [Rx Confirmed 08/13/20] bupropion HCl 150 mg PO DAILY 07/20/20 [History Confirmed 08/13/20] diazepam 5 mg PO Q8 PRN #15 tab 07/20/20 [Rx Confirmed 08/13/20] ketorolac 10 mg PO TID 5 Days #15 tab 07/20/20 [Rx Confirmed 08/13/20] baclofen 10 mg PO QHS 7 Days #7 tab 08/06/20 [Rx Confirmed 08/13/20] hydrocodone-acetaminophen 1 tab PO Q6H PRN PRN 3 Days #10 tablet 08/06/20 [Rx Confirmed 08/13/20] PFSH Medical History (Updated 08/13/20 @ 12:19 by Kera John) Carpal tunnel syndrome Chronic pain COPD (chronic obstructive pulmonary disease) Ulnar nerve laceration Surgical History History of appendectomy History of cholecystectomy History of tubal ligation Social History Smoking Status: Current every day smoker tobacco type: cigarettes HPI Lumbar Spine Details: Parts of this documentation were recorded by a scribe, this documentation accurately reflects the service provided and the decisions made by me, Dr. Gael Avery DO 07/31/20 0941. TRACY ESPANA is a 45 year old F NEW patient here today for low back and right hip pain. She states she has had this pain for about 2 months. 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 She also states that she does not want this under workers comp. She states this pain is constant. She has increased pain with increased activity and sitting and laying. She states that this pain is interfering with her sleep. She did she Dr. Addison for her right hip and he felt this pain was from her spine. Dr. Addison did give her a trigger point injection over the right low buttock but states this did not work. She states that she has generalized low back pain and this pain radiates tot he right lateral hip and into her right groin and down her right anterior thigh and the pain stops at the knee. Does have weakness of the right leg and she feels that her back gets stiff and lock up and then her right leg will give out. She feels that the medication is helping to mask her pain. Denies any pain management injections. She has been using heating pads, muscle rub. She states that if she rests the pain does improve some. She has also tried [facility], Percocet, ibuprofen, Flexeril and a Medrol dose pack which only provide temporary relief. Tracy is a most pleasant lady 45 years old that has pain in the right lower back region radiates around to the anterior thigh and the right inguinal region. She hurt herself about 2 months ago. She did not lifting. Its been there ever since. She has not had an MRI scan. She denies any bowel or bladder dysfunction. She denies history of unexplained weight loss no fever sweats or chills. On examination she has pain with extension much more so than flexion in fact with flexion she has hardly any pain. She has perhaps some weakness of the right quad as compared to the left and perhaps some hip flexor weakness on the right as compared to the left though it is hard to tell. Her right patellar reflex is there but perhaps a bit less on the left. She has 2+ Achilles reflex reflexes on both sides. She has normal muscle atrophy that I can tell. Plain x-rays of the lumbar spine taken in my office were unremarkable. Our plan is to proceed with an MRI scan of the lumbar spine. I will see her after the MRI scan and make further recommendations. I will start her on a Medrol Dosepak so she can tolerate laying in the scanner for 30 minutes. ROS Musc Reports abnormal gait, Reports back pain, Reports limited range of motion, Denies numbness and Reports stiffness Skin/Breast Denies erythema, Denies lesions and Denies new lesions Neuro Yes abnormal gait and No numbness Coding Level of Care Code Off vis,new,level 3 Diagnoses Lumbar radicular pain M54.16 Right groin pain R10.31 Time Spent (min) 30 Assessment and Plan Assessment and Plan (1) Lumbar radicular pain:
[2020-11-22] VITALS (16 sets, daily range): BP systolic 92–141; BP diastolic 57–83; PULSE 65–95; RESP 16–20; TEMP 35.8–36.9; O2SAT 94–100; BMI 42.8
--- NOTE | 2020-11-22 | MISC_PTH ---
PATIENT: SHAHNAZ ESPANA LOC: MS3 U#:[id number] AGE/SX: 45/F ROOM: [facility] [place] RE11/25/[address]: Dr. Micheal Shen MD : 1975 BED: 1 DIS: 11/27/2020 SPEC #: [id number] RECD: 11/22/20 12:52 STATUS: SANTIAGO REErasto #: [id number] [place]: 11/22/20 00:[address]: Gael Avery DEPT: SURGICAL PATHOLOGY RECD BY: Malcom Sullivan ENTERED: 11/22/20 12:53 SP TYPE: MISC ZINA DR: Dr. Sobeida Berger MD Tissues: Vertebra, NOS Procedures: Decalcification bone/plaque Surgery Specimen Level IV HEADER OPERATION: ERAS, lateral laminectomy L3-L4 PRE-OP DIAGNOSIS: Lumbar radicular pain; right groin pain TISSUE SUBMITTED: Lumbar bone and ligament MICROSCOPIC DIAGNOSIS Lumbar bone and ligament, L3-L4, laminectomy: Degenerative and reparative change. AM;am 11/27/20 MICROSCOPIC DESCRIPTION Slides are reviewed. GROSS DESCRIPTION Received in fixative is one container labeled with the patient's name and designated lumbar bone and ligament. The specimen consists of multiple fragments of bone and soft tissue that in aggregate measure 3 x 2.5 x 0.4 cm. The specimen is totally submitted in one cassette after decalcification. / AM;am 11/22/20 TC:5 CPT: 24372,47942
[2020-11-22] MEDS: Acetaminophen 500 MG Tablet 1000 MG PO (06:22)
[2020-11-22] MEDS: Lactated Ringers 1,000 ML 100 ML IV ×2 (06:23→17:48)
[2020-11-22 06:31] LABS: Bedside Glucose 101 mg/dL (70-110)
[2020-11-22] MEDS: Cefazolin 2 GM in 0.9% Normal Saline 100 ML IV (07:28)
--- NOTE | 2020-11-22 07:30 | RAD_ITS ---
INDICATION: ERAS, LATERAL LAMINECTOMY L3-L4 RIGHT EXAMINATION/TECHNIQUE: X-RAY - XR Spine Lumbar 1 View COMPARISON: 11/10/2020.. FINDINGS: Single crosstable lateral image of the lumbar spine obtained intraoperatively demonstrates localization of the L5 vertebral body. RAD/Spine 1 View Any Level IMPRESSION: Intraoperative image demonstrates localization of the L5 vertebral body level. Electronically Signed: Doc Galdamez MD at 9:19 EDT Tel , Service support ,
[2020-11-22] MEDS: THROMBIN (RECOMBINANT) 20,000 UNIT VIAL 20000 UNIT TOPICAL (08:30)
--- NOTE | 2020-11-22 10:49 | PCM.OPRPT ---
Report of Operation Date of Procedure: 11/22/20 Description of Surgical Findings:: Preoperative diagnosis: Far lateral herniation L3-4 on the right with severe right L3 radiculopathy Postoperative diagnosis: The same Procedure: Lateral laminectomy/discectomy L3-4 on the right CPT code 01741 Surgeon: Dr. Avery instructional assistant: Tayo CUENCA Anesthesia: General endotracheal anesthesia administered by Yessenia anesthesia Estimated blood loss: Less than 25 cc Drains: None Complications: None Procedure: Patient was taken to the OR where she was placed under general endotracheal anesthesia. Neuro monitoring with her leads in place and a Ghotra catheter was inserted. The patient was then placed in the prone position on the Walt frame. After appropriate positioning with care to protect her bony prominences her brachial plexus bilaterally her ulnar nerves of both elbows her breasts her neck and facial features the back was prepped and draped in standard fashion. I then made a longitudinal incision centered in the low back region subcutaneous tissues were incised length of skin incision with cautery I then opened the lumbar fascia to the right of the spinous process elevated the very the paravertebral muscles off a lamina I then placed a marker in place between the spinous processes and an intraoperative x-ray was taken. This was marked at the L4-5 level. We simply moved up 1 level marked at an elevated the paravertebral muscles off the lamina of L3. I removed periosteum off of the lamina and the pars interarticularis. I then put a Farheen retractor over the facet exposing the lateral side of the lamina and pars. Using a small osteotome I then remove the very top of the facet joint. Then released the ligamentum flavum off the underside of the outer lamina and bottom of the pars and elevated it gently. A lateral laminotomy was then carried out to the base of the pars. The ligamentum flavum was encountered of course this was released along its borders and using a 3 mm 45? Kerrison rongeur I slowly removed the ligamentum flavum. This gave me access to the L3 nerve root on the right side. There was obviously disc just under and up and in the axilla of the nerve root using a nerve hook I was able to sweep under the nerve root and removed several free fragments of disc. I also large the size of the tear in the annulus and removed some more nuclear material from just inside the annulus. This is to prevent any further extrusion of fragments. This completely decompressed the L3 nerve root. Neuro monitoring was done throughout the procedure and there was no issue with the L3 nerve root or any other problem. Once decompressed bleeders were controlled with bipolar cautery as I had used several times before. In addition we also thoroughly irrigated every 10 or 15 minutes in the course of the case to prevent infection. I then placed a amnionic membrane directly over the nerve root to prevent adhesions in the future I placed Gelfoam over the top of that it was so dry that it was not felt that we needed an drain at all. We closed the lumbar fascia using [id number] suture with #1 Vicryl in interrupted fashion. The subcutaneous tissues were then closed in layers with 0 Vicryl and 2-0 Vicryl in interrupted fashion and the skin was approximated using skin clips. Sterile dressings were then applied. The patient was then recovered in the OR moved to her hospital bed and taken to recovery in satisfactory condition. This the end of operative summary on Tracy Lizarraga. This is Dr. Avery dictating.
--- NOTE | 2020-11-22 13:42 | PCM.PN.HOSP ---
Subjective Subjective Ms. Jenkins is a 45-year-old white female who presented to [facility] on 11/22/2020 for an elective lateral laminectomy and discectomy at L3-4 on the right secondary to severe right-sided L3 radiculopathy. 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 She reported her pain was constant and increased with activity, sitting, and lying down. Her pain has been interfering with her sleep. She had undergone trigger point injections with no relief. Her pain starts in her low back and radiates to her right lateral hip into her groin and down the right anterior thigh to her knee. She did have noted weakness in her right leg and reports that her right leg will intermittently give out on her. She reported that the medications help mask her pain. She is currently in the immediate postoperative period and is complaining of back pain. She occasionally yells out spontaneously. She is still somewhat sleepy. Objective Data Objective Data Vital Signs: Vital Signs Temp Pulse Resp BP Pulse Ox 97.3 F L 95 16 127/82 H 97 11/22/20 13:00 11/22/20 13:00 11/22/20 13:00 11/22/20 13:00 11/22/20 13:00 Oxygen Flow Rate (L/min) 3 Oxygen Delivery Method Nasal Cannula Weight: 109.8 kg Body Mass Index (BMI) 42.8 Intake & Output: Intake and Output for Last 24 Hours 11/20/20 11/21/20 11/22/20 23:59 23:59 23:59 Intake Total 2216.5 / 2216.5 Output Total 850 / 850 Balance 1366.5 / 1366.5 Lab / Micro Data Result Diagrams: 11/13/20 10:53 11/13/20 10:53 Labs: Laboratory Results - last 24 hr 11/22/20 06:05: POC Glucose 101 Micro: Microbiology 11/13/20 10:53 Swab (Method) Nasal Screen MRSA/MSSA - Final Radiography Diagnostic Testing: Radiology Impression Spine X-Ray 11/22/20 07:30 IMPRESSION: Intraoperative image demonstrates localization of the L5 vertebral body level. Electronically Signed: Doc Galdamez MD at 9:19 EDT Tel , Service support , Physical Exam Const alert Constitutional Narrative: Morbidly obese white female lying in bed, groggy but alert, nontoxic-appearing, intermittently yells out secondary to pain but does not appear all that uncomfortable in between her yelling, patient appears much older than stated age HEENT head/scalp atraumatic and moist oral mucous membranes HEENT Narrative: Mallampati 3, no thrush, fair dentition Head and Scalp: normocephalic Resp normal respiratory effort, no retractions, no use of accessory muscles and clear to auscultation bilaterally Auscultation: Negative for crackles, rales, rhonchi or wheezes Cardio regular rate, regular rhythm, S1 normal heart sound, S2 normal heart sound, no murmurs, no rub, no gallops, no clicks and no JVD GI normal to inspection, nondistended, normoactive bowel sounds, soft to palpation, non-tender and non-distended Extremity no clubbing, cyanosis or edema Peripheral Pulses: Yes pulses 2+ throughout Neuro CN's II-XII intact bilaterally and moves all extremities Sensorium / Orientation: awake Speech: speech normal Assessment & Plan Assessment/Plan (1) Herniated nucleus pulposus, L3-4 right: (2) Tobacco use: (3) Anxiety: PLAN: HNP L3-L4 with right-sided radiculopathy -Status post lateral laminectomy/discectomy L3-L4 on the right -Pain management per primary service -Continue bowel regimen -Therapy services per primary's recommendation -Would discontinue IV fluids once patient is taking p.o. adequately History of asthma -Continue as needed inhaler Insomnia -Continue Ambien History of hepatitis C -It appears that she has been treated for this in the past -Unclear if this is a resolved issue Depression/anxiety -Continue home medications Tobacco abuse -Patient states she smokes 1 to 2 cigarettes daily -Discussed with her the importance of complete cessation for healing status post surgery -Patient to let us know if she needs nicotine replacement patch DVT prophylaxis -SCDs for now -Would recommend initiation of chemical prophylaxis when okay with orthopedic surgery Charges/Coding Visit Charges Inpatient E&M: 01638 Subs Hosp L2
[2020-11-22] MEDS: Cefazolin 1 GM/50 ML BAG IV ×2 (14:12→21:27)
[2020-11-22] MEDS: Morphine 4 MG/ML Syringe IV (14:12)
[2020-11-22] MEDS: 0.9% NaCl Peripheral Flush Adult/Peds IV (14:12)
[2020-11-22] MEDS: Ensure Surgery 237 ML LIQUID PO ×2 (14:13→17:50)
[2020-11-22] MEDS: HYDROmorphone 1 MG/ML Syringe IV ×3 (15:42→20:46)
[2020-11-22] MEDS: 0.9% Saline Lock 10 ML Syringe IV (15:42)
[2020-11-22] MEDS: traMADol 50 MG Tablet PO (17:49)
[2020-11-22] MEDS: diazePAM 5 MG Tablet PO (17:49)
[2020-11-22] MEDS: buPROPion (XL) 150 MG TABLET.XL PO (20:49)
[2020-11-22] MEDS: FLUoxetine 20 MG Capsule 40 MG PO (20:49)
[2020-11-22] MEDS: Famotidine 20 MG Tablet PO (21:25)
[2020-11-22] MEDS: Senna/Docusate Sodium 1 Tablet 2 TABLET PO (21:25)
[2020-11-22] MEDS: Zolpidem Tartrate 5 MG Tablet PO (21:50)
[2020-11-23] VITALS (8 sets, daily range): BP systolic 108–135; BP diastolic 65–77; PULSE 70–88; RESP 16–20; TEMP 36.8–37.2; O2SAT 93–98
[2020-11-23] MEDS: HYDROmorphone 1 MG/ML Syringe IV ×5 (01:36→22:39)
[2020-11-23] MEDS: traMADol 50 MG Tablet PO ×3 (05:57→14:04)
--- NOTE | 2020-11-23 09:14 | NURSING ---
Pt states that the 1mg dilaudid does not work, only the 2mg works. Pt also states ultram does not help for my breakthrough pain. ASking for something else for break through pain.
[2020-11-23] MEDS: Ensure Surgery 237 ML LIQUID PO ×3 (09:20→18:11)
[2020-11-23] MEDS: diazePAM 5 MG Tablet PO ×2 (09:24)
[2020-11-23] MEDS: FLUoxetine 20 MG Capsule 40 MG PO (09:25)
[2020-11-23] MEDS: buPROPion (XL) 150 MG TABLET.XL PO (09:25)
[2020-11-23] MEDS: Senna/Docusate Sodium 1 Tablet 2 TABLET PO ×2 (09:25→22:14)
[2020-11-23] MEDS: Famotidine 20 MG Tablet PO ×2 (09:38→22:14)
--- NOTE | 2020-11-23 13:10 | CASEMGMT ---
LOTTIE ESCALONA Face to Face with patient for initial transition planning/care coordination assessment. RN POLA introduced self and role at [facility]. Patient lying in bed, alert and oriented. Patient willing to participate in assessment and is able to answer all questions appropriately. Care providers, pharmacy, and demographics verified. Patient wishes to discharge to SNF if she is able to as she is requiring assistance with standing and transfers. Patient states she has no further needs or concerns at this time. SW updated regarding requests for SNF. CM to follow for discharge planning needs that may arise. PCP: Celine Specialists: nola Avery Pharmacy: [facility] Insurance: [employer] grand Prescription Benefit: yes Living Will/HPOA: none LNOK: mother, brother, uncle, boyfriend Living Arrangements: Patient lives with roommate in a second floor apartment. Patient states when she does go home she will be going to her mother's house which in one level with ramp to enter. Patient states she was independent prior to admission. Transportation: self, uncle DME/HHC: Patient states she has shower chair, and grab bars at mothers house. Will need walker and BSC at discharge to home. No preference for DME. Patient voiced interest in SNF at discharge in able. LOTTIE ESCALONA updated SW. Disposition Plan: SNF vs home with possible HHC. Will monitor progress with therapy. Myrna DESOUZA, RN, CM
[2020-11-23] MEDS: 0.9% Saline Lock 10 ML Syringe IV ×2 (14:02→22:36)
--- NOTE | 2020-11-23 14:54 | CASEMGMT ---
Addendum entered by Myrna Moscoso 11/23/20 16:13: SW placed Green sheet on chart in the event pre-cert is obtained. Plan: RU pending pre-cert. Have to wait for approval/pre-cert from RU before pt can discharge. Original Note: Social Work Note SW updated that pt is requesting SNF at discharge. SW reviewed chart. Pt with laminectomy and [place] insurance, pt may qualify for [facility]. RO placed a call to [facility] with RU, pt does have qualifying diagnoses and pt's insurance may approve it. SW in to speak with pt. SW introduced self and role at [facility]. Pt is alert and orientated x3. SW spoke with pt about discharge plans, RU vs SNF. Pt prefers to remain at [facility], agreeable to [facility] RU. Patient was provided a list of SNF providers including quality and resource use data and consistent with the patient?s preferred geographic region, medical needs, and insurance network. RO placed a call to [facility] with RU. RU to review referral, will submit for pre-cert. Plan: RU pending pre-cert Myrna BLANDON, BARIST[place]
--- NOTE | 2020-11-23 15:06 | NURSING ---
Pt was sitting in chair this morning for one hour, now sat in chair for 30min. Pt very tearful each time she gets up to chair.
--- NOTE | 2020-11-23 15:50 | PCM.PN.ORT ---
Objective Data Objective Data Vital Signs: Vital Signs Temp Pulse Resp BP Pulse Ox 98.2 F 88 18 126/75 H 96 11/23/20 14:10 11/23/20 14:10 11/23/20 14:10 11/23/20 14:10 11/23/20 14:10 Oxygen Flow Rate (L/min) 0.5 Oxygen Delivery Method Room Air Weight: 242 lb 1.081 oz Body Mass Index (BMI) 42.8 Intake & Output: Intake and Output for Last 24 Hours 11/21/20 11/22/20 11/23/20 23:59 23:59 23:59 Intake Total 6479.83 / 6479.83 1376.67 / 1376.67 Output Total 6575 / 6575 3200 / 3200 Balance -95.17 / -95.17 -1823.33 / -1823.33 Lab / Micro Data Result Diagrams: 11/13/20 10:53 11/13/20 10:53 Micro: Microbiology 11/13/20 10:53 Swab (Method) Nasal Screen MRSA/MSSA - Final Procedure Criteria Elective Risks - COVID COVID Risk Discussion: Postop day #1. Patient's L3 radicular pain is completely gone. However she is complaining of whole lot of back pain. We will add oxycodone to her Dilaudid. She is afraid that she will not be able to take care of her who is disabled and her mother who is also disabled when she gets home. Rehab will be in order. We will attempt to get her into rehab soon as possible. Her dressing is dry. Neurologically she is intact in both lower extremities. She has no dysesthesias. Progress is satisfactory.
[2020-11-23] MEDS: oxyCODONE 5 MG Tablet PO (18:06)
[2020-11-24] MEDS: Zolpidem Tartrate 5 MG Tablet PO (00:11)
[2020-11-24] MEDS: diazePAM 5 MG Tablet PO ×4 (00:13→21:09)
[2020-11-24 04:04] VITALS: BP 113/71; PULSE 70; RESP 18; TEMP 36.9; O2SAT 96
[2020-11-24] MEDS: oxyCODONE 5 MG Tablet PO ×4 (04:09→17:00)
[2020-11-24 07:12] VITALS: O2SAT 96
[2020-11-24] MEDS: Senna/Docusate Sodium 1 Tablet 2 TABLET PO ×2 (08:32→21:08)
[2020-11-24] MEDS: buPROPion (XL) 150 MG TABLET.XL PO (08:32)
[2020-11-24] MEDS: Famotidine 20 MG Tablet PO ×2 (08:32→21:08)
[2020-11-24] MEDS: FLUoxetine 20 MG Capsule 40 MG PO (08:32)
[2020-11-24] MEDS: HYDROmorphone 1 MG/ML Syringe IV ×4 (09:36→19:52)
[2020-11-24 10:00] VITALS: BP 120/76; PULSE 85; RESP 18; TEMP 36.6; O2SAT 95
--- NOTE | 2020-11-24 13:53 | PCM.PN.ORT ---
Objective Data Objective Data Vital Signs: Vital Signs Temp Pulse Resp BP Pulse Ox 97.8 F 85 18 120/76 95 11/24/20 10:00 11/24/20 10:00 11/24/20 10:00 11/24/20 10:00 11/24/20 10:00 Oxygen Flow Rate (L/min) 0.5 Oxygen Delivery Method Room Air Weight: 242 lb 1.081 oz Body Mass Index (BMI) 42.8 Intake & Output: Intake and Output for Last 24 Hours 11/22/20 11/23/20 11/24/20 23:59 23:59 23:59 Intake Total 6479.83 / 6479.83 1926.67 / 2426.67 1000 / 1000 Output Total 6575 / 6575 4350 / 4650 1750 / 1750 Balance -95.17 / -95.17 -2423.33 / -2223.33 -750 / -750 Lab / Micro Data Result Diagrams: 11/13/20 10:53 11/13/20 10:53 Micro: Microbiology 11/13/20 10:53 Swab (Method) Nasal Screen MRSA/MSSA - Final Procedure Criteria Elective Risks - COVID COVID Risk Discussion: Postop day #2. Patient admits that she actually feels better today and her pain is less than it was yesterday. The catheter is out and she is able to actually go to the bathroom on her own. Therapy just ambulated her a little while ago and she did reasonably well. We will continue the present care and hopefully on Thursday she will be able to get moved to the rehab unit. Progress is satisfactory.
[2020-11-24 14:00] VITALS: BP 120/76; PULSE 99; RESP 18; TEMP 36.7; O2SAT 95
[2020-11-24] MEDS: Acetaminophen 500 MG Tablet 1000 MG PO ×2 (16:58→21:09)
[2020-11-24] MEDS: Ensure Surgery 237 ML LIQUID PO (17:01)
[2020-11-24] MEDS: 0.9% Saline Lock 10 ML Syringe IV ×2 (19:48→19:53)
[2020-11-24 19:50] VITALS: BP 127/79; PULSE 78; RESP 18; TEMP 36.6; O2SAT 97
[2020-11-25 02:05] VITALS: BP 104/65; PULSE 76; RESP 18; TEMP 36.6; O2SAT 97
[2020-11-25] MEDS: oxyCODONE 5 MG Tablet PO ×4 (02:17→20:03)
[2020-11-25] MEDS: diazePAM 5 MG Tablet PO ×3 (03:16→21:15)
[2020-11-25] MEDS: Acetaminophen 500 MG Tablet 1000 MG PO ×3 (05:14→20:03)
[2020-11-25] MEDS: Mirabegron 25 MG TAB.ER.24H PO (05:14)
[2020-11-25] MEDS: Ensure Surgery 237 ML LIQUID PO (07:44)
[2020-11-25] MEDS: Senna/Docusate Sodium 1 Tablet 2 TABLET PO ×2 (07:45→20:03)
[2020-11-25] MEDS: FLUoxetine 20 MG Capsule 40 MG PO (07:45)
[2020-11-25] MEDS: Famotidine 20 MG Tablet PO ×2 (07:45→21:15)
[2020-11-25] MEDS: buPROPion (XL) 150 MG TABLET.XL PO (07:46)
[2020-11-25 07:53] VITALS: BP 131/72; PULSE 77; RESP 18; TEMP 37.1; O2SAT 98
[2020-11-25 07:55] VITALS: RESP 18; O2SAT 98
[2020-11-25] MEDS: HYDROmorphone 1 MG/ML Syringe IV ×2 (14:31→22:34)
[2020-11-25] MEDS: 0.9% Saline Lock 10 ML Syringe IV ×2 (14:32→22:34)
[2020-11-25 14:38] VITALS: BP 120/74; PULSE 85; RESP 18; TEMP 36.6; O2SAT 97
[2020-11-25 20:00] VITALS: BP 114/62; PULSE 78; RESP 18; TEMP 36.6; O2SAT 97
[2020-11-25] MEDS: Zolpidem Tartrate 5 MG Tablet PO (22:35)
[2020-11-26 02:19] VITALS: BP 104/55; PULSE 72; RESP 18; TEMP 36.6; O2SAT 96
[2020-11-26] MEDS: oxyCODONE 5 MG Tablet PO ×4 (04:28→23:26)
[2020-11-26] MEDS: Acetaminophen 500 MG Tablet 1000 MG PO ×3 (04:28→21:14)
[2020-11-26 08:11] VITALS: BP 108/73; PULSE 85; RESP 18; TEMP 36.6; O2SAT 96
[2020-11-26] MEDS: Mirabegron 25 MG TAB.ER.24H PO (08:17)
[2020-11-26] MEDS: Famotidine 20 MG Tablet PO ×2 (08:18→21:14)
[2020-11-26] MEDS: Senna/Docusate Sodium 1 Tablet 2 TABLET PO ×2 (08:18→21:14)
[2020-11-26] MEDS: FLUoxetine 20 MG Capsule 40 MG PO (08:18)
[2020-11-26] MEDS: buPROPion (XL) 150 MG TABLET.XL PO (08:18)
[2020-11-26] MEDS: Ensure Surgery 237 ML LIQUID PO (08:25)
[2020-11-26] MEDS: diazePAM 5 MG Tablet PO ×3 (08:25→23:26)
[2020-11-26] MEDS: HYDROmorphone 1 MG/ML Syringe IV (10:48)
[2020-11-26] MEDS: 0.9% Saline Lock 10 ML Syringe IV ×2 (10:48→21:14)
--- NOTE | 2020-11-26 12:20 | PCM.PN.HOSP ---
Subjective Subjective Patient has severe pain 8/10 intensity gets worse on movement. Person hard time even on rolling on the side. Objective Data Objective Data Vital Signs: Vital Signs Temp Pulse Resp BP Pulse Ox 97.8 F 85 18 108/73 96 11/26/20 08:11 11/26/20 08:11 11/26/20 08:11 11/26/20 08:11 11/26/20 08:11 Oxygen Flow Rate (L/min) 0.5 Oxygen Delivery Method Room Air Weight: 242 lb 1.081 oz Body Mass Index (BMI) 42.8 Intake & Output: Intake and Output for Last 24 Hours 11/24/20 11/25/20 11/26/20 23:59 23:59 23:59 Intake Total 1000 / 1000 600 / 600 480 / 480 Output Total 1750 / 2250 1500 / 1500 600 / 600 Balance -750 / -1250 -900 / -900 -120 / -120 Lab / Micro Data Result Diagrams: 11/13/20 10:53 11/13/20 10:53 Micro: Microbiology 11/13/20 10:53 Swab (Method) Nasal Screen MRSA/MSSA - Final Physical Exam Narrative Patient could not roll on the side to see the back. General: Alert, Oriented x3, Cooperative HEENT: Atraumatic, PERRLA, EOMI, Normocephalic Oral: No Gingival or Mucosal Lesions/ Ulcerations Neck: Supple, No JVD, Negative Carotid Bruits Lungs: Air entry diminished in bilateral lung bases. No crepitation/rhonchi Cardiovascular: Regular rate, Regular Rhythm, Normal S1, Normal S2, No murmurs Abdomen: Bowel Sounds Present, Soft, Non Tender, Non-Distended : No renal angle tenderness. No suprapubic tenderness. Extremities: No edema, Capillary Refill Less than 3 Seconds Skin: No rashes, No breakdown Musculoskeletal/spine: Tenderness present on LS spine with radiation to right anterior thigh, gluteal region and groin. Neurological: Cranial nerves II-XII grossly intact, lower extremity neuropathy. Psych/Mental Status: pain Assessment & Plan Assessment/Plan (1) Herniated nucleus pulposus, L3-4 right: (2) Lumbar radicular pain: PLAN: This 45-year-old female is admitted in the orthopedics spine service after operative management. 1. Herniated nucleus pulposus L3-4 right sided L3 radiculopathy: Patient postop diagnosis lateral herniation L3-4 on the right with severe right L3 radiculopathy. Patient had lateral laminectomy/discectomy L3-4 right. Patient is still complaining of severe pain especially on turning around. On pain management. PT and OT. Need SNF. 2. Asthma: No exacerbation. As needed inhaler. Continue incentive spirometry 3. Anxiety, depression, insomnia: Continue patient's home medication 4. History of chronic hepatitis C treated with Harvoni in the past 5. Chronic tobacco use: Patient smokes 1 to 2 cigarettes daily. VTE prophylaxis SCD. Pharmacological prophylaxis as per orthopedic surgeon Charges/Coding Visit Charges Inpatient E&M: 72863 Subs Hosp L2
[2020-11-26 13:21] VITALS: BP 109/55; PULSE 79; RESP 18; TEMP 37.1; O2SAT 98
--- NOTE | 2020-11-26 13:50 | PCM.PN.ORT ---
Objective Data Objective Data Vital Signs: Vital Signs Temp Pulse Resp BP Pulse Ox 98.7 F 79 18 109/55 L 98 11/26/20 13:21 11/26/20 13:21 11/26/20 13:21 11/26/20 13:21 11/26/20 13:21 Oxygen Flow Rate (L/min) 0.5 Oxygen Delivery Method Room Air Weight: 242 lb 1.081 oz Body Mass Index (BMI) 42.8 Intake & Output: Intake and Output for Last 24 Hours 11/24/20 11/25/20 11/26/20 23:59 23:59 23:59 Intake Total 1000 / 1000 600 / 600 480 / 480 Output Total 1750 / 2250 1500 / 1500 1200 / 1200 Balance -750 / -1250 -900 / -900 -720 / -720 Lab / Micro Data Result Diagrams: 11/13/20 10:53 11/13/20 10:53 Micro: Microbiology 11/13/20 10:53 Swab (Method) Nasal Screen MRSA/MSSA - Final Procedure Criteria Elective Risks - COVID COVID Risk Discussion: Postop day #4. Patient's back was examined and the dressing is dry. Hopefully we can get her into rehab tomorrow if it is approved by the insurance company. In the meantime she explains that a little bit of the pain around the buttocks and into the inside of the thighs starting to return. I tried to reassure her that this is just residual swelling of the sworn L3 nerve root. This sometimes takes several weeks to completely resolve as the swelling of the nerve goes down. Other than that she is neurologically intact. Is been up 3 times today and walking in the [place] that was very good for her. Apparently she was taking a lot more opioid prior to surgery that I was aware of. Is 1 reason she has had a hard time with the pain however she was much better today. I will see her again tomorrow.
[2020-11-26 21:10] VITALS: BP 103/66; PULSE 86; RESP 16; TEMP 36.8; O2SAT 98
[2020-11-26] MEDS: Zolpidem Tartrate 5 MG Tablet PO (23:24)
[2020-11-27 03:33] VITALS: BP 96/67; PULSE 80; RESP 16; TEMP 36.6; O2SAT 95
[2020-11-27] MEDS: Acetaminophen 500 MG Tablet 1000 MG PO ×2 (03:37→12:32)
[2020-11-27] MEDS: diazePAM 5 MG Tablet PO ×2 (05:46→14:25)
[2020-11-27 08:07] VITALS: BP 113/70; PULSE 82; RESP 18; TEMP 36.8; O2SAT 96
[2020-11-27] MEDS: oxyCODONE 5 MG Tablet PO ×2 (08:22→14:26)
[2020-11-27] MEDS: Mirabegron 25 MG TAB.ER.24H PO (08:23)
[2020-11-27] MEDS: FLUoxetine 20 MG Capsule 40 MG PO (08:23)
[2020-11-27] MEDS: Famotidine 20 MG Tablet PO (08:23)
[2020-11-27] MEDS: Senna/Docusate Sodium 1 Tablet 2 TABLET PO (08:23)
[2020-11-27] MEDS: buPROPion (XL) 150 MG TABLET.XL PO (08:23)
[2020-11-27] MEDS: Ensure Surgery 237 ML LIQUID PO ×3 (08:25→17:09)
--- NOTE | 2020-11-27 11:22 | CASEMGMT ---
Social Work Note SW received message from Dyan with RU, pre-cert is still pending. Plan: RU pending pre-cert Myrna Moscoso WELL FLOW OPERATOR, SCALLOP CUTTER
--- NOTE | 2020-11-27 13:06 | PN.HOSP_ITS ---
Subjective Subjective Patient sitting on the chair. Pain is better. Patient wants to go to acute rehab. Objective Data Objective Data Vital Signs: Vital Signs Temp Pulse Resp BP Pulse Ox 98.2 F 82 18 113/70 96 11/27/20 08:07 11/27/20 08:07 11/27/20 08:07 11/27/20 08:07 11/27/20 08:07 Oxygen Flow Rate (L/min) 0.5 Oxygen Delivery Method Room Air Weight: 242 lb 1.081 oz Body Mass Index (BMI) 42.8 Intake & Output: Intake and Output for Last 24 Hours 11/25/20 11/26/20 11/27/20 23:59 23:59 23:59 Intake Total 600 / 600 1320 / 1920 1400 / 1400 Output Total 1500 / 1500 1200 / 2300 1800 / 1800 Balance -900 / -900 120 / -380 -400 / -400 Lab / Micro Data Result Diagrams: 11/13/20 10:53 11/13/20 10:53 Micro: Microbiology 11/13/20 10:53 Swab (Method) Nasal Screen MRSA/MSSA - Final Physical Exam Narrative General: Alert, Oriented x3, Cooperative HEENT: Atraumatic, PERRLA, EOMI, Normocephalic Oral: No Gingival or Mucosal Lesions/ Ulcerations Neck: Supple, No JVD, Negative Carotid Bruits Lungs: Air entry diminished in bilateral lung bases. No crepitation/rhonchi Cardiovascular: Regular rate, Regular Rhythm, Normal S1, Normal S2, No murmurs Abdomen: Bowel Sounds Present, Soft, Non Tender, Non-Distended : No renal angle tenderness. No suprapubic tenderness. Extremities: No edema, Capillary Refill Less than 3 Seconds Skin: Surgical dressing over lumbar spine is dry. Musculoskeletal/spine: No hematoma/bruise over surgical site. Mild tenderness present on LS spine Neurological: Cranial nerves II-XII grossly intact, lower extremity neuropathy. Psych/Mental Status: In mild to moderate pain Assessment & Plan Assessment/Plan (1) Herniated nucleus pulposus, L3-4 right: (2) Lumbar radicular pain: PLAN: This 45-year-old female is admitted in the orthopedics spine service after operative management. 1. Herniated nucleus pulposus L3-4 right sided L3 radiculopathy: Patient postop diagnosis lateral herniation L3-4 on the right with severe right L3 radiculopathy. Patient had lateral laminectomy/discectomy L3-4 right. Patient is still complaining of severe pain especially on turning around. On pain management. PT and OT. 11/27: Discussed with hospice case manager and nursing staff. Patient might be discharged by Ortho service to acute rehab, Dr. Avery. Patient is medically stable. 2. Asthma: No exacerbation. As needed inhaler. Continue incentive spirometry 3. Anxiety, depression, insomnia: Continue patient's home medication 4. History of chronic hepatitis C treated with Harvoni in the past 5. Chronic tobacco use: Patient smokes 1 to 2 cigarettes daily. VTE prophylaxis SCD. Pharmacological prophylaxis as per orthopedic surgeon Charges/Coding Visit Charges Inpatient E&M: 26654 Subs Hosp L2
[2020-11-27 14:00] VITALS: BP 109/67; PULSE 88; RESP 18; TEMP 36.5; O2SAT 100
--- NOTE | 2020-11-27 15:15 | CASEMGMT ---
Pt screened using [facility] Palliative Care Screening Tool due to strata 3, pt did not meet criteria.
--- NOTE | 2020-11-27 15:29 | PCM.DC.SUM ---
Providers Date of Admission: 11/25/20 Date of Discharge: 11/27/20 Primary Care Physician: Dr. Sobeida Berger MD Consultations 11/22/20 10:40 Consult: Hospitalist Routine Consulting Provider: Elvia Sterling Reason for Consult: Medical Management EMERGENT Consult: No MD Notified: Yes Date Notified: 11/22/20 Time Notified: 13:25 Method of Notification: Text Reason For Visit: LATERAL LAMINECTOMY L3-L4 RT Diagnosis Discharge Diagnosis (1) Herniated nucleus pulposus, L3-4 right: Status: Acute Code(s): M51.26 - Other intervertebral disc displacement, lumbar region (2) Lumbar radicular pain: Status: Acute Code(s): M54.16 - Radiculopathy, lumbar region Medications at Discharge Home Medications albuterol sulfate [Ventolin HFA] 1 - 2 puff INHALATION Q4H PRN PRN #1 inhaler 07/21/15 Alive [employer] Energy 1 tab PO DAILY 10/16/17 bupropion HCl 150 mg PO DAILY 07/20/20 fluoxetine [Prozac] 40 mg PO DAILY 11/10/20 acetaminophen 1,000 mg PO 0400,1200,2000 #0 tab 11/27/20 diazepam 5 mg PO Q6H PRN PRN #0 tab 11/27/20 famotidine 20 mg PO BID #0 tab 11/27/20 mirabegron [Myrbetriq] 25 mg PO DAILY #0 tab 11/27/20 nut.tx.comp. immune systm,reg [Ensure Surgery] 237 ml PO TIDCM #0 ml 11/27/20 oxycodone 5 - 10 mg PO Q4H PRN PRN #0 tab 11/27/20 sennosides-docusate sodium [Stool Softener-Stimulant Laxat] 2 tab PO BID #0 tab 11/27/20 zolpidem 5 mg PO QHS PRN PRN #0 tab 11/27/20 Hospital Course Summary of Care Provided Hospital Course: This 45-year-old female was admitted by Dr. Avery for chronic low back pain with radiation to right hip nonresponding to conservative management. Her further hospital course as mentioned below. 1. Herniated nucleus pulposus L3-4 right sided L3 radiculopathy: Patient postop diagnosis lateral herniation L3-4 on the right with severe right L3 radiculopathy. Patient had lateral laminectomy/discectomy L3-4 right. Patient complained of severe pain especially on turning around. On pain management. PT and OT. Discussed with the pillowcase cutter and patient is being transferred to acute inpatient rehab as per instructions of Dr. Avery. 2. Asthma: No exacerbation. As needed inhaler. Continue incentive spirometry 3. Anxiety, depression, insomnia: Continue patient's home medication 4. History of chronic hepatitis C treated with Harvoni in the past 5. Chronic tobacco use: Patient smokes 1 to 2 cigarettes daily. VTE prophylaxis SCD. Pharmacological prophylaxis as per orthopedic surgeon Discharge medication reconciliation done. Discharge follow-up instructions, dressings and activity completed. Discharge process discussed with the patient and all questions were answered to patient's satisfaction. Total time spent, exact 35 minutes on discharge meds reconciliation, examination, coordination of care with nurses and ancillary staff, review of imaging and blood test and discussion with the patient on follow-up instructions Physical Exam Narrative Please see the progress note of the same date. I documented my physical exam findings there. Weight / BMI Weight Weight: 242 lb 1.081 oz Body Mass Index (BMI) 42.8 ABG / Lab / Microbiology Data Result Diagrams: 11/13/20 10:53 11/13/20 10:53 Microbiology: Microbiology 11/13/20 10:53 Swab (Method) Nasal Screen MRSA/MSSA - Final D/C Instructions Discharge Diet: No restrictions Additional Activity Instructions: May shower 11/28. Call your doctor if your incision/area has: - (Remove dressing 11/27) Additional Dressing/Incision Instructions: DC skin clip in 10 days. No working until after follow-up appointment with Dr. Avery. Follow Dr. Avery in 2 to 3 days after discharge from inpatient rehab Please Follow Up With: Gael Avery DO When: In 2 to 3 days after discharge from inpatient rehab Meaningful Use Info Meaningful Use Diagnoses (Choose all that apply): None applicable Discharge Plan Admission Admit Date/Time: 11/25/20 14:31 Primary Reason for Your Visit: Herniated nucleus pulposis L3-L4, right-sided L3 radiculopathy Attending Provider: Micheal Shen Primary Care Provider: Sobeida Berger Consulting Providers: Elvia Sterling Discharge Orders/Prescriptions Prescriptions: New acetaminophen 500 mg Tablet 1,000 mg PO 0400,1200,2000 Qty: 0 RF: 0 famotidine 20 mg Tablet 20 mg PO BID Qty: 0 RF: 0 diazepam 5 mg Tablet 5 mg PO Q6H PRN PRN (Reason: Muscle Spasms) Qty: 0 RF: 0 Ensure Surgery 0.08-1.4 gram-kcal/mL Liquid 237 ml PO TIDCM Qty: 0 RF: 0 Myrbetriq 25 mg Tablet Extended Release 24 Hr 25 mg PO DAILY Qty: 0 RF: 0 sennosides-docusate sodium [Stool Softener-Stimulant Laxat] 8.6-50 mg Tablet 2 tab PO BID Qty: 0 RF: 0 zolpidem 5 mg Tablet 5 mg PO QHS PRN PRN (Reason: Insomnia) Qty: 0 RF: 0 oxycodone 5 mg Tablet 5 - 10 mg PO Q4H PRN PRN (Reason: Pain Score 6-10) Qty: 0 RF: 0 Continued albuterol sulfate [Ventolin HFA] 1 INHALER inhaler 1 - 2 puff inhalation Q4H PRN PRN (Reason: Wheezing) Qty: 1 RF: 0 Al[employer] 1 EACH tablet 1 tab PO DAILY RF: 0 bupropion HCl 150 mg tablet extended release 24 hr 150 mg PO DAILY RF: 0 fluoxetine [Prozac] 40 mg Capsule 40 mg PO DAILY RF: 0 Discontinued ibuprofen 200 MG tablet 800 mg PO PRN PRN (Reason: Pain) RF: 0 melatonin 10 mg Tablet 40 mg PO QHS RF: 0 hydroxyzine pamoate [Vistaril] 25 mg Capsule 25 mg PO TID PRN (Reason: Anxiety) RF: 0 oxycodone-acetaminophen [oxycodone-acetaminophen] 1 TABLET tablet 1 tab PO Q6H PRN PRN (Reason: Pain) 3 Days Qty: 12 RF: 0 oxycodone-acetaminophen 7.5-325 mg tablet 1 tab PO TID PRN (Reason: pain) 10 Days Qty: 30 RF: 0 Referrals / Follow Up: Sobeida Berger MD [Primary Care Provider] - Within 2 Weeks Disposition Disposition (needs filled in before D/C Order can be placed): Inpatient Rehab Unit/Facility Charges/Coding Addendum Addendum: Please cancel the billing charge of progress note of the same date today. Visit Charges Inpatient E&M: 88727 Disch Hosp
--- NOTE | 2020-11-27 16:01 | CASEMGMT ---
Social Work Note SW received call from Dyan with RU stating pt was approved. RO updated physician. SW received call from Physician. RO updated physician that pt can discharge to , pt will need discharge order and instructions for home. Physician states he is not coming back to [facility], asked to speak to RN to give discharge order/instructions. SW asked RN to speak with physician. SW updated pt that approval for RU has been obtained, will discharge today to . Pt states understanding. Plan: RU today Myrna Moscoso MSW, MANAGER VAN
--- NOTE | 2020-11-27 16:11 | PCM.DC ---
Discharge Instructions Diet Discharge Diet: No restrictions Activity Discharge Activity: Use Walker ( Activity, up with wheeled walker.) Additional Activity Instructions:: May shower 11/28. Dressing / Incision Call your doctor if your incision/area has: - (Remove dressing 11/27) Additional Dressing/Incision Instructions:: DC skin clip in 10 days. No working until after follow-up appointment with Dr. Avery. Follow Dr. Avery in 2 to 3 days after discharge from inpatient rehab Follow Up Care Please Follow Up With: Gael Avery DO When: In 2 to 3 days after discharge from inpatient rehab Test Results: Test results from this visit will be discussed in further detail at your follow-up appointment, if applicable. Discharge Plan Admission Admit Date/Time: 11/25/20 14:31 Primary Reason for Your Visit: Herniated nucleus pulposis L3-L4, right-sided L3 radiculopathy Attending Provider: Micheal Shen Primary Care Provider: Sobeida Berger Consulting Providers: Elvia Sterling Discharge Orders/Prescriptions Prescriptions: New acetaminophen 500 mg Tablet 1,000 mg PO 0400,1200,2000 Qty: 0 RF: 0 famotidine 20 mg Tablet 20 mg PO BID Qty: 0 RF: 0 diazepam 5 mg Tablet 5 mg PO Q6H PRN PRN (Reason: Muscle Spasms) Qty: 0 RF: 0 Ensure Surgery 0.08-1.4 gram-kcal/mL Liquid 237 ml PO TIDCM Qty: 0 RF: 0 Myrbetriq 25 mg Tablet Extended Release 24 Hr 25 mg PO DAILY Qty: 0 RF: 0 sennosides-docusate sodium [Stool Softener-Stimulant Laxat] 8.6-50 mg Tablet 2 tab PO BID Qty: 0 RF: 0 zolpidem 5 mg Tablet 5 mg PO QHS PRN PRN (Reason: Insomnia) Qty: 0 RF: 0 oxycodone 5 mg Tablet 5 - 10 mg PO Q4H PRN PRN (Reason: Pain Score 6-10) Qty: 0 RF: 0 Continued albuterol sulfate [Ventolin HFA] 1 INHALER inhaler 1 - 2 puff inhalation Q4H PRN PRN (Reason: Wheezing) Qty: 1 RF: 0 Al[employer] 1 EACH tablet 1 tab PO DAILY RF: 0 bupropion HCl 150 mg tablet extended release 24 hr 150 mg PO DAILY RF: 0 fluoxetine [Prozac] 40 mg Capsule 40 mg PO DAILY RF: 0 Discontinued ibuprofen 200 MG tablet 800 mg PO PRN PRN (Reason: Pain) RF: 0 melatonin 10 mg Tablet 40 mg PO QHS RF: 0 hydroxyzine pamoate [Vistaril] 25 mg Capsule 25 mg PO TID PRN (Reason: Anxiety) RF: 0 oxycodone-acetaminophen [oxycodone-acetaminophen] 1 TABLET tablet 1 tab PO Q6H PRN PRN (Reason: Pain) 3 Days Qty: 12 RF: 0 oxycodone-acetaminophen 7.5-325 mg tablet 1 tab PO TID PRN (Reason: pain) 10 Days Qty: 30 RF: 0 Referrals / Follow Up: Sobeida Berger MD [Primary Care Provider] - Within 2 Weeks Disposition Disposition (needs filled in before D/C Order can be placed): Inpatient Rehab Unit/Facility
--- NOTE | 2020-11-27 16:45 | NURSING ---
REPORT CALLED TO [facility]
== END 2020-11-27 17:45 | DRG 310 ==
LOC: SDC 11:45 → MS3 16:55
PROVIDERS: Anesthesiology; Admitting Provider Orthopaedic Surgery; PCP Internal Medicine; Referring Provider Orthopaedic Surgery; Visit Provider Internal Medicine
PROC: (CPT 63030; principal; 2020-11-22 07:00)
DX: M51.16 Intervertebral disc disorders with radiculopathy, lumbar region (principal); G89.29 Other chronic pain; J44.9 Chronic obstructive pulmonary disease, unspecified; G47.00 Insomnia, unspecified; B18.2 Chronic viral hepatitis C; F32.9 Major depressive disorder, single episode, unspecified; F41.9 Anxiety disorder, unspecified; F17.210 Nicotine dependence, cigarettes, uncomplicated; E66.01 Morbid (severe) obesity due to excess calories; Z68.41 Body mass index [BMI] 40.0-44.9, adult; Z79.899 Other long term (current) drug therapy
CPT/HCPCS: 36415; 72020; 80048; 80076; 82962; 83735; 85025; 85610; 85730; 86703; 86706; 86708; 86803; 87081; 88305; 88311; 93005; 97110; 97162; 97166; 97530; 97535; 99251; J7120; A4216; G0463; J2405

== ENCOUNTER 2020-11-27 18:00 | Inpatient (IN) | payer MEDICAID, SELFPAY ==
[2020-11-27 18:18] VITALS: BP 105/59; PULSE 94; RESP 18; TEMP 36; O2SAT 94; BMI 42.1
[2020-11-27 19:09] VITALS: O2SAT 94
[2020-11-27] MEDS: oxyCODONE 5 MG Tablet PO (20:12)
[2020-11-27 22:00] VITALS: BP 118/76; PULSE 103; RESP 20; TEMP 36.8; O2SAT 97
[2020-11-27] MEDS: Famotidine 20 MG Tablet PO (22:09)
[2020-11-27] MEDS: diazePAM 5 MG Tablet PO (22:09)
[2020-11-27] MEDS: Acetaminophen 500 MG Tablet 1000 MG PO (22:09)
--- NOTE | 2020-11-28 01:30 | NURSING ---
pt painful and tearful at the beginning of the shift. pt medicated and given reassurance with some effect. 2100 pt remains tearful and sobbing d/t pain and stated that bed was uncomfortable, staff exchanged out her bed for another and then assisted pt to the recliner, pt reports that she more comfortable sitting in the chair at this time. 2200 pt less anxious at this time and clinical findings completed pt given valium and the res of her hs medication. staff assisted with hs care and pt returned to bed . pt will yell out with movement d/t [pain in her buttock rt hip, groin, and thigh. polar given for comfort for this area and pt reports that was helping 2300 pt resting quietly with no distress noted at this time
[2020-11-28] MEDS: oxyCODONE 5 MG Tablet PO ×5 (01:55→21:17)
--- NOTE | 2020-11-28 02:57 | NURSING ---
Pt charting reviewed. Agree with LPNs assessment.
[2020-11-28] MEDS: Acetaminophen 500 MG Tablet 1000 MG PO ×3 (06:36→21:17)
[2020-11-28 07:55] VITALS: BP 113/78; PULSE 93; RESP 18; TEMP 36.6; O2SAT 97
[2020-11-28] MEDS: FLUoxetine 20 MG Capsule 40 MG PO (08:28)
[2020-11-28] MEDS: buPROPion (XL) 150 MG TABLET.XL PO (08:28)
[2020-11-28] MEDS: Multivitamins,Therapeutic Tablet 1 TABLET PO (08:28)
[2020-11-28] MEDS: Mirabegron 25 MG TAB.ER.24H PO (08:28)
[2020-11-28] MEDS: Famotidine 20 MG Tablet PO ×2 (08:28→21:18)
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
--- NOTE | 2020-11-28 11:57 | PCM.RU.PYE ---
Admission Information Primary Diagnosis:: Debility secondary to recent lateral laminectomy/discectomy at L3-4 on the right. Status Changes from Prescreening?: No changes Identified Actual Problem List:: Skin Intergrity, Pain, ALteration in Cmfrt, Alteration in Sleep, Mobility Impaired, Self Care Deficit and Alteration-Leisure Activ. Potential Problem List:: DVT, Bleeding, Infection, UTI, Aspiration, Falls, Skin Integrity and Depression Risk of Complications DVT: GEOVANY Hose and Sequential Compression Device Bleeding: Monitor Lab Values, Nursing to Teach Precautions for anti-coagulation therapy., Wound, if applicable, to be assessed every shift. and Stroke patients assessed for lethargy or change in status. Infection: Clinical Staff to Monitor for S/S of infection: and S/S of infection include fever, redness, warmth, etc. Urinary Tract Infection: Monitor for frequency, burning, discomfort, or incontinence. and Nursing will obtain urine sample for urinalysis and C&S when ordered. Aspiration: Clinical staff will monitor for coughing, drooling, congestion., Speech will evaluate swallowing and dsyphasia. and Nursing will monitor patient swallowing during meals. Falls: Patient will be evaluated for Fall Precautions and Patient will be placed on Fall Precautions as indicated per protocol. Skin Breakdown: Nursing will assess skin daily using assessment tool. and Nursing will place on Skin Breakdown Precautions as indicated. Pain: Clinical staff will assess patient's pain level per protocol., Medications will be given, if needed, and the pain level reassessed. and Other methods: Massage, distraction, decrease stimulus, etc. used PRN. Plan of Care Patient requires physician specializing in physical medicine and rehab oversight to provide close medical supervision of rehab issues including: Pain Management, Sleep Problems, Bowel and Bladder, Medical and co-morbidity Management, DVT prophylaxis, Rehabilitation Leadership and Coordination of treatment team Patient needs Physical Therapy: For a minimum of 1 hour and At least 5 out of 7 days Patient needs Physical Therapy to improve:: Mobility, Strengthening, Transfers, Stretching, ROM, Endurance, Stairs, Gait and Balance Patient needs Occupational Therapy: For a minimum of 1 hour and At least 5 out of 7 days Patient needs Occupational Therapy to improve ADL's incl.: Eating, Grooming, Bathing, Dressing, Toileting, Toilet transfers, Community Reintegration, Higher functioning activities, Household tasks, Adaptive Equipment, Splinting and Other activities as determined Patient requires 24/ Rehabilitation Nursing for: Pain Issues, Identifying and preventing risk factors, Monitoring and reporting current medical conditions, Assisting with ambulation, transfer, and all ADL's, Teaching patients about disease process and medications, Family teaching, Providing safe environment, Bowel and Bladder Issues, Skin integrity and Medication Management Patient needs Gastroenterology Professor/ Case Management for: Discharge Planning, Arranging Home Equipment or Services and Family Interventions Patient needs Dietary and Nutrition Services for: Adequate Nutrition, Nutritional Supplements and Nutritional Education Goals Patient will remain: free from falls and or injury at time of discharge. Patient will perform bed mobility at: MOD I level of assist. Patient will complete transfers from bed to chair at: MOD I level of assist. Patient will ambulate: 100 feet and with LRD Patient will complete upper body dressing at: MOD I level of assist. Patient will complete lower body dressing at: MOD I level of assist. Patient will complete toileting at: MOD I level of assist. Patient will perform bathing at: MOD I level of assist. Patient will complete grooming at: MOD I level of assist. Patient will complete home management skills at: MOD I level of assist. Patient will achieve: - (1 curb step) Patient will have pain level of: of 3 or less Patient's skin will: remain intact Patient will receive: adequate nutrition. Discharge Planning Pt Prognosis for Sig. Practical Improv. w/in Reasonable Time: Good Estimated Length of stay (days): 14 Anticipated D/C Destination: Home with Outpt Therapy Was Preadmission Assessment Accurate?: Yes
[2020-11-28 12:23] VITALS: O2SAT 95
--- NOTE | 2020-11-28 16:34 | CHAPLAIN ---
Type of Pastoral Visit _x__ Initial Visit ___ Follow-up Visit ___ On-call Visit ___ General Patient Visit ___ Spiritual Assessment ___ Family Conference ___ Bereavement ___ Rapid Response ___ Code Blue ___ Other (describe below) Pastoral Care Referral From _x__ Patient ___ Family ___ Nurse ___ Physician ___ Department Clerk ___ Bankruptcy Assistant ___ Other (describe below) Sacrament/Intervention _x__ Active listening ___ Anointing ___ Orthodoxy ___ Bereavement ___ Communion _x__ Jennifer exploration ___ _x__ Life review _x__ Prayer ___ Reconciliation ___ Sacrament of Sick _x__ Supportive presence ___ Wedding ___ Other (describe below) Pastoral Comments patient is very talkative and welcoming of spiritual support; pt admitted to a couple melt downs today but expresses thankfulness for the rehab and speaks optimistically about recovery and future; 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
--- NOTE | 2020-11-28 19:21 | NURSING ---
pt ambulates around unit x1 at [facility] this RN. tolerates well. states relief of pain from ambulation.
[2020-11-28 20:50] VITALS: BP 112/78; PULSE 84; RESP 14; TEMP 36.7; O2SAT 100
[2020-11-28] MEDS: Zolpidem Tartrate 5 MG Tablet PO (21:17)
[2020-11-29] MEDS: oxyCODONE 5 MG Tablet PO ×3 (05:18→17:21)
[2020-11-29] MEDS: Acetaminophen 500 MG Tablet 1000 MG PO ×3 (05:18→22:42)
[2020-11-29] MEDS: diazePAM 5 MG Tablet PO ×2 (06:03→14:52)
[2020-11-29 08:31] VITALS: BP 135/87; PULSE 94; RESP 16; TEMP 36.6; O2SAT 96
[2020-11-29] MEDS: Famotidine 20 MG Tablet PO ×2 (08:45→22:42)
[2020-11-29] MEDS: FLUoxetine 20 MG Capsule 40 MG PO (08:45)
[2020-11-29] MEDS: Multivitamins,Therapeutic Tablet 1 TABLET PO (08:45)
[2020-11-29] MEDS: buPROPion (XL) 150 MG TABLET.XL PO (08:45)
[2020-11-29] MEDS: Mirabegron 25 MG TAB.ER.24H PO (08:45)
--- NOTE | 2020-11-29 12:40 | CASEMGMT ---
Social Work Team meeting held. Patient present. Patient with insurance update due on 12/04/2020. Patient to continue with further care and treatment on the Rehab Unit. Patient aware that continued stay approval by insurance is not guaranteed. Patient plans to discharge to home where patient has a flight of stairs to enter. Patient lives with a friend that is disabled and unable to assist patient. Patient to be re-teamed next week. Will continue to follow. Irene BLANDON, [place]
[2020-11-29 19:34] VITALS: BP 106/63; PULSE 98; RESP 14; TEMP 36.7; O2SAT 97
[2020-11-29] MEDS: oxyCODONE 5 MG Tablet 10 MG PO (22:42)
[2020-11-29] MEDS: Zolpidem Tartrate 5 MG Tablet PO (22:52)
--- NOTE | 2020-11-30 03:37 | NURSING ---
REVIEWED AND AGREE WITH EDITING COMPUTER PUBLISHER ASSESSMENT.
[2020-11-30] MEDS: Acetaminophen 500 MG Tablet 1000 MG PO ×3 (05:51→22:17)
[2020-11-30 07:38] VITALS: BP 95/58; PULSE 88; RESP 16; TEMP 36.7; O2SAT 97
[2020-11-30 07:41] VITALS: O2SAT 95
[2020-11-30] MEDS: buPROPion (XL) 150 MG TABLET.XL PO (08:43)
[2020-11-30] MEDS: Multivitamins,Therapeutic Tablet 1 TABLET PO (08:43)
[2020-11-30] MEDS: Famotidine 20 MG Tablet PO ×2 (08:43→22:16)
[2020-11-30] MEDS: Mirabegron 25 MG TAB.ER.24H PO (08:43)
[2020-11-30] MEDS: FLUoxetine 20 MG Capsule 40 MG PO (08:43)
[2020-11-30] MEDS: oxyCODONE 5 MG Tablet PO ×2 (08:59→15:15)
[2020-11-30] MEDS: diazePAM 5 MG Tablet PO (14:14)
[2020-11-30] MEDS: Gabapentin 100 MG Capsule PO (17:25)
--- NOTE | 2020-11-30 17:58 | PN_ITS ---
Progress Note Afebrile VSS Maintaining appropriate oxygen saturation on RA Oral intake is good Discussed with nursing - no problems that need addressed Reviewed the PT/OT notes Medication list reviewed. She denies chest pain, shortness of breath at rest or with exertion, hemoptysis, cough, dysuria, nausea/vomiting, abdominal pain. She has regular bowel move ments. She is sleeping better at night. Still complaining of pain down her right leg and indra-incisional pain in the back. Physical Exam Const alert and oriented x3 Constitutional Narrative: She is a little pale today and is slow-moving. General Appearance: cooperative Resp normal respiratory effort and clear to auscultation bilaterally Cardio regular rate, regular rhythm, no murmurs, no rub and no gallops GI normal to inspection, nondistended, normoactive bowel sounds and soft to palpation Extremity no calf tenderness and no pedal edema Skin General Skin Exam: no breakdown Rashes: no rashes Assessment & Plan Assessment/Plan (1) Debility: (2) History of lumbar laminectomy: (3) History of herniated intervertebral disc: (4) Anxiety and depression: PLAN: 1. Continue therapy 2. She has multiple steps to go up to her apartment and will need to be able to do at least 12 steps prior to discharge 3. Over 50% of my visit today was spent counselling Tracy about her mental health problems and discussing treatment. Visit Charges Inpatient E&M: 18771 Subs Hosp L2
[2020-11-30 19:26] VITALS: BP 124/70; PULSE 86; RESP 18; TEMP 37; O2SAT 94
[2020-11-30] MEDS: oxyCODONE 5 MG Tablet 10 MG PO (22:15)
[2020-11-30] MEDS: Gabapentin 100 MG Capsule 200 MG PO (22:15)
[2020-11-30] MEDS: Zolpidem Tartrate 5 MG Tablet PO (22:17)
[2020-12-01 01:59] VITALS: PULSE 86; RESP 18
[2020-12-01] MEDS: Acetaminophen 500 MG Tablet 1000 MG PO ×3 (05:22→22:34)
[2020-12-01] MEDS: oxyCODONE 5 MG Tablet PO ×3 (05:24→18:09)
[2020-12-01 07:30] VITALS: BP 123/61; PULSE 76; RESP 18; TEMP 36.3; O2SAT 94
[2020-12-01] MEDS: FLUoxetine 20 MG Capsule 40 MG PO (08:15)
[2020-12-01] MEDS: Multivitamins,Therapeutic Tablet 1 TABLET PO (08:16)
[2020-12-01] MEDS: Mirabegron 25 MG TAB.ER.24H PO (08:16)
[2020-12-01] MEDS: Famotidine 20 MG Tablet PO ×2 (08:16→22:34)
[2020-12-01] MEDS: Gabapentin 100 MG Capsule PO ×2 (08:17→16:06)
[2020-12-01] MEDS: Senna/Docusate Sodium 1 Tablet 2 TABLET PO (08:17)
[2020-12-01] MEDS: buPROPion (XL) 150 MG TABLET.XL PO (08:18)
[2020-12-01] MEDS: diazePAM 5 MG Tablet PO (16:06)
[2020-12-01 19:13] VITALS: BP 139/81; PULSE 89; RESP 18; TEMP 36.3; O2SAT 98
[2020-12-01] MEDS: Gabapentin 100 MG Capsule 200 MG PO (19:55)
[2020-12-01] MEDS: Zolpidem Tartrate 5 MG Tablet PO (22:33)
[2020-12-01] MEDS: oxyCODONE 5 MG Tablet 10 MG PO (22:35)
[2020-12-02] MEDS: Acetaminophen 500 MG Tablet 1000 MG PO ×3 (07:15→22:13)
[2020-12-02] MEDS: buPROPion (XL) 150 MG TABLET.XL PO (07:56)
[2020-12-02] MEDS: Mirabegron 25 MG TAB.ER.24H PO (07:56)
[2020-12-02] MEDS: Multivitamins,Therapeutic Tablet 1 TABLET PO (07:56)
[2020-12-02] MEDS: Gabapentin 100 MG Capsule PO ×2 (07:56→17:21)
[2020-12-02] MEDS: Famotidine 20 MG Tablet PO ×2 (07:56→22:14)
[2020-12-02] MEDS: FLUoxetine 20 MG Capsule 40 MG PO (07:57)
[2020-12-02] MEDS: oxyCODONE 5 MG Tablet PO ×2 (07:57→14:17)
[2020-12-02 12:00] VITALS: BP 149/78; PULSE 87; RESP 17; TEMP 36.8; O2SAT 96
[2020-12-02] MEDS: diazePAM 5 MG Tablet PO (13:42)
[2020-12-02 19:07] VITALS: BP 132/80; PULSE 80; RESP 17; TEMP 36.3; O2SAT 98
[2020-12-02] MEDS: Gabapentin 100 MG Capsule 200 MG PO (19:53)
[2020-12-02] MEDS: Zolpidem Tartrate 5 MG Tablet PO (22:13)
[2020-12-02] MEDS: oxyCODONE 5 MG Tablet 10 MG PO (22:14)
[2020-12-03] MEDS: Acetaminophen 500 MG Tablet 1000 MG PO ×3 (06:13→21:37)
[2020-12-03] MEDS: oxyCODONE 5 MG Tablet PO ×2 (06:14→14:51)
[2020-12-03] MEDS: Clotrimazole/Betamethasone 1 Tube 1 APPLIC TOPICAL ×2 (08:06→19:53)
[2020-12-03] MEDS: FLUoxetine 20 MG Capsule 40 MG PO (08:06)
[2020-12-03] MEDS: Famotidine 20 MG Tablet PO ×2 (08:06→20:01)
[2020-12-03] MEDS: Gabapentin 100 MG Capsule PO ×2 (08:06→16:25)
[2020-12-03] MEDS: Mirabegron 25 MG TAB.ER.24H PO (08:06)
[2020-12-03] MEDS: Multivitamins,Therapeutic Tablet 1 TABLET PO (08:06)
[2020-12-03] MEDS: buPROPion (XL) 150 MG TABLET.XL PO (08:07)
[2020-12-03 08:29] VITALS: BP 103/49; PULSE 76; RESP 16; TEMP 36.4; O2SAT 98
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
[2020-12-03] MEDS: diazePAM 5 MG Tablet PO ×2 (11:03→20:01)
--- NOTE | 2020-12-03 12:22 | NURSING ---
recieved call form Dr metzger office to dc erin in the next day or two and apply steri strips. pt to f/u on dc from rehab
[2020-12-03 18:53] VITALS: BP 136/65; PULSE 85; RESP 16; TEMP 36.6; O2SAT 97
[2020-12-03] MEDS: Gabapentin 100 MG Capsule 200 MG PO (19:52)
[2020-12-03 20:06] VITALS: PULSE 85; RESP 16; O2SAT 97
[2020-12-03] MEDS: oxyCODONE 5 MG Tablet 10 MG PO (21:39)
[2020-12-03] MEDS: Zolpidem Tartrate 5 MG Tablet PO (21:40)
[2020-12-04] MEDS: Acetaminophen 500 MG Tablet 1000 MG PO ×3 (05:56→20:13)
[2020-12-04] MEDS: oxyCODONE 5 MG Tablet PO ×2 (05:57→13:07)
[2020-12-04] MEDS: Clotrimazole/Betamethasone 1 Tube 1 APPLIC TOPICAL ×2 (08:30→20:13)
[2020-12-04] MEDS: buPROPion (XL) 150 MG TABLET.XL PO (08:30)
[2020-12-04] MEDS: Multivitamins,Therapeutic Tablet 1 TABLET PO (08:31)
[2020-12-04] MEDS: Gabapentin 100 MG Capsule PO ×2 (08:31→17:50)
[2020-12-04] MEDS: FLUoxetine 20 MG Capsule 40 MG PO (08:31)
[2020-12-04] MEDS: Mirabegron 25 MG TAB.ER.24H PO (08:31)
[2020-12-04] MEDS: Famotidine 20 MG Tablet PO ×2 (08:31→20:12)
[2020-12-04 08:44] VITALS: BP 110/56; PULSE 84; RESP 18; TEMP 36.6; O2SAT 97
[2020-12-04] MEDS: diazePAM 5 MG Tablet PO ×2 (13:10→20:29)
[2020-12-04 20:00] VITALS: BP 129/83; PULSE 84; RESP 17; TEMP 36.8; O2SAT 100
[2020-12-04] MEDS: Gabapentin 100 MG Capsule 200 MG PO (20:13)
[2020-12-04] MEDS: Zolpidem Tartrate 5 MG Tablet PO (22:59)
[2020-12-04] MEDS: oxyCODONE 5 MG Tablet 10 MG PO (22:59)
[2020-12-05] MEDS: Acetaminophen 500 MG Tablet 1000 MG PO ×3 (04:18→21:04)
[2020-12-05] MEDS: FLUoxetine 20 MG Capsule 40 MG PO (07:48)
[2020-12-05] MEDS: Mirabegron 25 MG TAB.ER.24H PO (07:48)
[2020-12-05] MEDS: Famotidine 20 MG Tablet PO ×2 (07:48→21:03)
[2020-12-05] MEDS: Multivitamins,Therapeutic Tablet 1 TABLET PO (07:48)
[2020-12-05] MEDS: Gabapentin 100 MG Capsule PO ×2 (07:48→18:00)
[2020-12-05] MEDS: Clotrimazole/Betamethasone 1 Tube 1 APPLIC TOPICAL ×2 (07:49→21:05)
[2020-12-05] MEDS: buPROPion (XL) 150 MG TABLET.XL PO (07:49)
[2020-12-05] MEDS: oxyCODONE 5 MG Tablet PO ×2 (07:49→15:40)
[2020-12-05 08:00] VITALS: BP 139/75; PULSE 94; RESP 18; TEMP 36.2; O2SAT 96
--- NOTE | 2020-12-05 10:26 | NURSING ---
23 erin removed from lower back incision at this time. pt tolerated procedure well. incision noted to be reddened at the insertion sites of erin. no signs or symptoms of infection noted at this time. area cleansed with soap and water, dried and steri strips applied per order. ABD applied per pt request. call light within reach and pt ambulates to restroom. denies further needs at this time.
[2020-12-05] MEDS: diazePAM 5 MG Tablet PO (10:32)
--- NOTE | 2020-12-05 15:25 | CASEMGMT ---
Social Work Met with patient to collaborate on discharge plan. Plan is for patient to discharge on 12/07/2020 to home. Patient reports to need a walker. Team is also recommending for patient to have home health services for physical and occupational therapy as well as long term. Patient is agreeable to home health care. Patient provided with list of home health companies. Patient choosing [facility] as first choice. This social media executive broached topic of counseling for patient after discharge. Patient is agreeable to this social media executive providing patient with list of counseling services but not to set up appointment. This social media executive provided patient with list of counseling agencies. Patient reports to have transportation to home for 12/07/2020 by a friend or family member. [facility] Referral for physical and occupational therapy as well as long term made. [facility] to call back. Order entered. Order for walker faxed to [facility] [place] walker delivered to patient room prior to discharge. Proposed discharge date: 12/07/2020 Disposition: Home with home health services. Irene BLANDON, MANDY
[2020-12-05 20:21] VITALS: BP 116/61; PULSE 79; RESP 16; TEMP 36.6; O2SAT 98
[2020-12-05] MEDS: Gabapentin 100 MG Capsule 200 MG PO (21:00)
[2020-12-05] MEDS: oxyCODONE 5 MG Tablet 10 MG PO (21:03)
[2020-12-05] MEDS: Zolpidem Tartrate 5 MG Tablet PO (21:06)
[2020-12-06] MEDS: Acetaminophen 500 MG Tablet 1000 MG PO ×3 (06:29→21:59)
[2020-12-06] MEDS: oxyCODONE 5 MG Tablet PO ×2 (06:30→14:09)
[2020-12-06] MEDS: Multivitamins,Therapeutic Tablet 1 TABLET PO (08:12)
[2020-12-06] MEDS: buPROPion (XL) 150 MG TABLET.XL PO (08:12)
[2020-12-06] MEDS: Mirabegron 25 MG TAB.ER.24H PO (08:12)
[2020-12-06] MEDS: Clotrimazole/Betamethasone 1 Tube 1 APPLIC TOPICAL ×2 (08:12→22:03)
[2020-12-06] MEDS: Famotidine 20 MG Tablet PO ×2 (08:12→20:34)
[2020-12-06] MEDS: Gabapentin 100 MG Capsule PO ×2 (08:12→17:57)
[2020-12-06] MEDS: FLUoxetine 20 MG Capsule 40 MG PO (08:12)
[2020-12-06 08:17] VITALS: BP 131/54; PULSE 77; RESP 16; TEMP 36.3; O2SAT 95
--- NOTE | 2020-12-06 11:35 | PN_ITS ---
Progress Note Tracy was seen on team rounds today. Afebrile VSS Maintaining appropriate oxygen saturation on RA Oral intake is good Discussed with nursing - no problems that need addressed. she is sleeping well at night. Still having some radicular pain in the R leg. She requests a RX for Ambien at [facility]. Reviewed the PT/OT notes Medication list reviewed. She has not had a Valium since yesterday AM. Has been using 20 mg of Oxycodone a day. She denies chest pain, shortness of breath, nausea/vomiting, abdominal pain, dysuria, lightheadedness. She tells me that she has Baclofen at home but does not like to take it due it making her sleepy. Physical Exam Const alert, oriented x3 and no apparent distress General Appearance: cooperative, well kempt and well developed Resp normal respiratory effort and clear to auscultation bilaterally Cardio regular rate and regular rhythm GI normal to inspection, nondistended, normoactive bowel sounds and soft to palpation Extremity no calf tenderness and no pedal edema Skin General Skin Exam: no breakdown Rashes: no rashes Wound Narrative: The low back incision is healing nicely. There is no periwound erythema. There is a small amount of dried serosanguineous fluid at a few small spots within the incision. There is no purulent discharge and there is no increased warmth to touch around the incision. Many of the Steri-Strips are still in place. Psych Psych Narrative: She seems to have some good insight into her problems and acknowledges that running away will not fix things. She knows she has to learn how to set boundaries and what to do when someone challenges her boundaries. She plans on following up with the dept at [facility]. She has been to [facility] in the past and knows she can go back if she feels herself having trouble getting off narcotics. I recommended she follow up with pain management. Appearance: appropriate Attitude: calm Activity / Motor Behavior: appropriate eye contact Assessment & Plan Assessment/Plan (1) Debility: PLAN: She will be discharged tomorrow and will [facility] van will be scheduled to transport her. (2) History of lumbar laminectomy: PLAN: She will follow-up with Dr. Gael Avery. (3) History of herniated intervertebral disc: PLAN: Status post laminectomy (4) Sciatica of right side: PLAN: Likely related to (5) Anxiety and depression: PLAN: She has been tearful off and on throughout her admission to rehab. We will increase the Wellbutrin XL to 300 mg p.o. every morning. (6) Polysubstance abuse: PLAN: Currently clean and sober but knows [facility] is available if she needs it (7) Cubital tunnel syndrome, bilateral: PLAN: She is to have bilateral surgery going forward. She must first recover from this surgery (8) Carpal tunnel syndrome, bilateral: PLAN: Surgery in the future Visit Charges Inpatient E&M: 56676 Subs Hosp L2
--- NOTE | 2020-12-06 15:43 | CASEMGMT ---
Social Work [facility] unable to accept pt's insurance. IDT met with patient for Team meeting. Discussed patient's DC. Pt DC 12/07. Explained [facility] unable to accept pt's insurance. Discussed outpatient therapy. Team recommending OP. Pt agreeable with assistance of [facility] Van transportation. Referral made to [facility]. Plan: DC home 12/07 with [facility] BARBER LauraW
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
[2020-12-06 20:27] VITALS: BP 136/81; PULSE 90; RESP 16; TEMP 36.6; O2SAT 98
[2020-12-06] MEDS: Gabapentin 100 MG Capsule 200 MG PO (20:34)
[2020-12-06] MEDS: Zolpidem Tartrate 5 MG Tablet PO (21:58)
[2020-12-06] MEDS: oxyCODONE 5 MG Tablet 10 MG PO (21:59)
[2020-12-07] MEDS: Acetaminophen 500 MG Tablet 1000 MG PO (06:27)
[2020-12-07 06:31] LABS: Hematocrit 37.8 % (37-47); Hemoglobin 12.1 g/dL (12.0-15.0); Mean Corpuscular Hgb 27.8 pg (27.0-32.0); Mean Corpuscular Volume 86.7 fL (81-99); Mean Platelet Vol. 9.4 fl (6.2-12.0); Platelet Count 281 K/mm3 (150-450); RBC Distribution Width CV 13.2 % (11.6-14.6); RBC Distribution Width SD 41.4 fl (35.1-43.9); Red Blood Count 4.36 M/mm3 (4.2-5.4); White Blood Count 8.1 K/mm3 (4.4-11.0)
[2020-12-07 06:49] LABS: ALB/GLOB Ratio 0.6 RATIO (0.9-2.4); AST(SGOT) 31 U/L (15-37); Alanine Aminotransfer ALT/SGPT 47 U/L (13-56); Albumin, Serum 2.8 g/dL (3.2-5.0); Alkaline Phosphatase 94 U/L (45-117); Anion Gap 6 (5-15); BUN 12 mg/dL (7-18); BUN/Creat Ratio 21.5 RATIO (10-20); Chloride 105 mmol/L (98-107); Creatinine, Serum 0.56 mg/dL (0.55-1.02); EST Glomerular Filtration Rate 124 mL/min (>60); Est Glom Filt Rate - Afr Amer 150 mL/min (>60); Estimated Creatinine Clearance 103.84 ml/min; Globulin 4.6 g/dL (2.2-4.2); Glucose 101 mg/dL (74-106); Magnesium 1.8 mg/dL (1.6-2.6); Potassium 4.2 mmol/L (3.5-5.1); Protein, Total 7.4 g/dL (6.4-8.2); Sodium Level 137 mmol/L (136-145)
[2020-12-07] MEDS: oxyCODONE 5 MG Tablet PO (07:47)
[2020-12-07] MEDS: Mirabegron 25 MG TAB.ER.24H PO (07:48)
[2020-12-07] MEDS: Famotidine 20 MG Tablet PO (07:48)
[2020-12-07] MEDS: Gabapentin 100 MG Capsule PO (07:48)
[2020-12-07] MEDS: FLUoxetine 20 MG Capsule 40 MG PO (07:48)
[2020-12-07] MEDS: Multivitamins,Therapeutic Tablet 1 TABLET PO (07:48)
[2020-12-07] MEDS: buPROPion (XL) 300 MG TABLET.XL PO (07:49)
[2020-12-07 08:35] VITALS: BP 128/88; PULSE 97; RESP 18; TEMP 36.7; O2SAT 99
[2020-12-07] MEDS: diazePAM 5 MG Tablet PO (09:51)
[2020-12-07 11:00] VITALS: BP 128/88; PULSE 97; RESP 18; TEMP 36.7; O2SAT 99
--- NOTE | 2020-12-07 11:00 | NURSING ---
Patient verbalized understanding to discharge instructions given and she will go pepper picker her walker at [facility].
== END 2020-12-07 11:00 | disposition home or self-care (01) | DRG 862 ==
PROVIDERS: Admitting Provider Internal Medicine; PCP Internal Medicine; Visit Provider Internal Medicine
DX: Z47.89 Encounter for other orthopedic aftercare (principal); F43.10 Post-traumatic stress disorder, unspecified; E66.9 Obesity, unspecified; B19.20 Unspecified viral hepatitis C without hepatic coma; J44.9 Chronic obstructive pulmonary disease, unspecified; M50.20 Other cervical disc displacement, unspecified cervical region; G47.33 Obstructive sleep apnea (adult) (pediatric); F17.210 Nicotine dependence, cigarettes, uncomplicated; M54.41 Lumbago with sciatica, right side; F31.9 Bipolar disorder, unspecified; F19.21 Other psychoactive substance dependence, in remission; Z79.899 Other long term (current) drug therapy; Z68.41 Body mass index [BMI] 40.0-44.9, adult
CPT/HCPCS: 36415; 80053; 83735; 85027; 97110; 97116; 97162; 97166; 97530; 97535; 97802; 99251; 99406; G0463

== ENCOUNTER 2020-12-26 15:34 | Emergency (ER) | payer MEDICAID, SELFPAY ==
[2020-12-26 15:35] VITALS: BP 123/96; PULSE 85; RESP 16; TEMP 36.3; O2SAT 96; BMI 42.5
[2020-12-26 15:43] VITALS: BP 123/96; PULSE 85; RESP 16; TEMP 36.3; O2SAT 96
--- NOTE | 2020-12-26 16:00 | CT_ITS ---
INDICATION: Abdominal pain -- IV PO Contrast EXAMINATION: CT Abdomen And Pelvis W/ Contrast Injection TECHNIQUE: Helically acquired images were obtained of the abdomen and pelvis after IV contrast. A radiation dose optimization technique was used for this scan. IV Contrast dosage and agent: Oral and amp; IV GASTROGRAFIN and amp; 100ML ISOVUE 370 Oral contrast: Yes. COMPARISON: 05/30/2020. FINDINGS: Visualized lung bases: Unremarkable Liver: Diffusely hypodense consistent with fatty liver. Gallbladder: Not visualized. Spleen: Unremarkable Pancreas: Unremarkable Adrenal Glands: Unremarkable Kidneys: Unremarkable Vasculature: Unremarkable GI Tract: Unremarkable Lymphadenopathy: None Peritoneum: No ascites. Bladder: Unremarkable Reproductive organs: Unremarkable Bones/Soft tissues: Postsurgical changes status post lumbar laminectomy including a fluid collection in the posterior paraspinal soft tissue measuring approximately 5.5 x 2 x 2.2 cm and spanning the L2 and L3 vertebral levels.. CT/Abdomen/Pelvis WITH Contrast IMPRESSION: 5.5 cm fluid collection in the posterior paraspinal soft tissue could represent a postoperative seroma versus abscess. Fatty liver. No other acute findings. Electronically Signed: [place] Seymour MD at 18:43 EDT Tel , Service support ,
--- NOTE | 2020-12-26 16:01 | ED.VIS.GI ---
HPI HPI - GI History of Present Illness Chief Complaint: Abd Pain Informant: patient Abdominal Pain/Flank Pain Onset: Days (4) Context: Gradual Onset Timing: Continuous Quality: Sharp Location: Diffuse Worsened by: Food Relieved by: Nothing Nausea/Vomiting/Emesis GI Symptom: Positive for Nausea and Vomiting Quality: Negative for Blood streaks, Coffee ground and Hematemesis Diarrhea/Melena/Hematochezia GI Symptom: Positive for Diarrhea; Negative for Melena and Hematochezia Onset: Days (2) Stool Quality: Positive for Watery Associated Symptoms Associated Symptoms: Negative for Dysuria, Frequency and Hematuria Narrative Narrative: Patient presents with abdominal pain that has been getting worse over the past 4 days. Patient states it is gradually getting worse. Patient states it is sharp. Patient states it is diffuse across her abdomen but worse in the lower abdomen. Patient states it does get worse after eating or drinking anything. Patient admits to some nausea and vomiting. Patient states she is having difficulty keeping anything down. Patient admits to watery diarrhea over the last 2 days. Patient denies any melena or hematochezia. Patient denies any dysuria or hematuria. Patient had recent back surgery 1 month ago. [facility] Medical History Abrasion Alcohol use Anxiety Asthma Bipolar disorder Carpal tunnel syndrome Chipped tooth Chronic cough Chronic pain COPD (chronic obstructive pulmonary disease) Easy bruising Hepatitis Hepatitis C Herniated cervical disc History of edema History of heartburn History of herniated intervertebral disc History of IBS History of stress test Hx of degenerative disc disease Injury of back Leg cramps Lumbar radicular pain MARIA INES (obstructive sleep apnea) Peptic ulcer Polysubstance abuse Schizophrenia Shortness of breath on exertion Smoker Tobacco use (Unknown) Ulnar nerve laceration Wears glasses Home Medications albuterol sulfate [Ventolin HFA] 1 - 2 puff INHALATION Q4H PRN PRN #1 inhaler 07/21/15 [Rx Last Taken 10/13/17] [employer] 1 tab PO DAILY 10/16/17 [History Last Taken 10/15/17] fluoxetine [Prozac] 40 mg PO DAILY 11/10/20 [History Last Taken Unknown] Myrbetriq 25 mg PO DAILY 11/27/20 [History Last Taken Unknown] famotidine 20 mg PO BID 11/27/20 [History Last Taken Unknown] acetaminophen 1,000 mg PO Q8H #0 tab 12/06/20 [Rx Last Taken Unknown] baclofen 10 mg PO TID PRN 14 Days #30 tab 12/06/20 [Rx Last Taken Unknown] bupropion HCl 300 mg PO DAILY #30 tab 12/06/20 [Rx Last Taken Unknown] clotrimazole-betamethasone 1 applic TOPICAL BID #15 g 12/06/20 [Rx Last Taken Unknown] gabapentin See Rx Instructions .ROUTE .COMPLEX 14 Days #60 cap 12/06/20 [Rx Last Taken Unknown] oxycodone 10 mg PO Q4H PRN PRN 7 Days #56 tab 12/06/20 [Rx Last Taken Unknown] zolpidem 5 mg PO QHS PRN PRN #10 tab 12/06/20 [Rx Last Taken Unknown] oxycodone-acetaminophen 7.5 mg-325 mg tablet 1 tab PO Q6H PRN 10 Days #40 tab 12/17/20 [Rx Last Taken Unknown] ondansetron 4 mg PO Q8H PRN PRN #10 tab 12/26/20 [Rx Last Taken Unknown] Allergy/AdvReac Type Severity Reaction Status Date / Time hydrocodone Allergy Intermediate Hives Verified 12/26/20 15:37 Surgical History History of appendectomy History of cholecystectomy History of decompression of ulnar nerve History of tubal ligation Social History Smoking Status: Current every day smoker tobacco type: cigarettes ROS ROS ED Constitutional Constitutional ED: Reports chills and subjective; Denies fever(s) Eyes Eyes: Denies blurry vision or change in vision ENT ENT ED: Reports rhinorrhea; Denies sore throat Cardiovascular Cardiovascular: Denies chest pain or palpitations Respiratory/Chest Respiratory/Chest: Reports cough; Denies dyspnea Gastrointestinal Gastrointestinal: Reports abdominal pain, diarrhea, nausea and vomiting Genitourinary Genitourinary ED: Denies dysuria or hematuria Musculoskeletal Musculoskeletal: Reports back pain; Denies neck pain Integumentary Denies abscess or rash Neurologic Neurologic: Denies headache(s) or weakness Allergic/Immunologic Allergic/Immunologic ED: Denies mouth swelling or urticaria EXAM Physical Exam Const Vital Signs: 12/26/20 15:35 12/26/20 15:43 12/26/20 16:28 Temperature 97.3 F L 97.3 F L Temperature Source Temporal Temporal Pulse Rate 85 85 Respiratory Rate 16 16 Respiratory Effort Normal Non-Labored Blood Pressure 123/96 H 123/96 H Blood Pressure Mean 105 105 Pulse Ox 96 96 Oxygen Delivery Method Room Air Room Air 12/26/20 17:39 12/26/20 19:06 Temperature Temperature Source Pulse Rate Respiratory Rate 16 16 Respiratory Effort Blood Pressure Blood Pressure Mean Pulse Ox Oxygen Delivery Method Positive well nourished, well developed and obese General Appearance ED: well developed Nutritional Appearance: obese HEENT Reports moist mucous membranes Neck supple and no JVD Resp normal respiratory effort and clear to auscultation bilaterally Cardio regular rate, regular rhythm and no murmurs GI normal to inspection, nondistended, normoactive bowel sounds Palpation: soft and tender LLQ, RLQ, RUQ, periumbilical and suprapubic; Negative for guarding or rebound tenderness present Extremity normal to inspection General Extremety ED: Negative for edema or tenderness General Extremity: Negative for edema Neuro oriented x3, CN's II-XII intact bilaterally and no sensory deficits noted Sensorium / Orientation: alert Motor Exam: strength 5/5 throughout Psych mental status grossly normal Skin no rashes or lesions noted MDM MDM MDM Narrative Medical decision making narrative: Patient was given IV fluids, morphine, and Zofran here. CBC and comprehensive metabolic profile were within normal limits. Lipase was normal. Urinalysis shows leukocyte esterase of 500 but only 5-10 epithelial cells. There is no evidence of urinary tract infection. COVID-19 rapid antigen was obtained and was negative. CT scan of the abdomen and pelvis was obtained. There is no acute intra-abdominal abnormality. There is a 5.5 cm fluid collection in the right paraspinal area. This could represent seroma or abscess. This was interpreted by the radiologist and reviewed by myself. On reevaluation, there is no erythema, tenderness, or fluctuance in the right paraspinal area. There is no evidence of any abscess. Given that the patient's labs are all within normal limits and there is no sign of any infection on her lab work, I think this is most likely a postoperative seroma. Patient was advised of her findings. Patient was given a prescription for Zofran. Patient was instructed to follow-up with her primary care physician in 3 to 5 days. Patient was also instructed to follow-up with her surgeon in 5 to 7 days. Patient understood and was agreeable with the plan. All questions were answered. Lab Data Attestation: I reviewed the patient's lab results. Labs: Laboratory Results - last 24 hr 12/26/20 12/26/20 12/26/20 16:21 16:21 16:52 WBC 8.6 RBC 4.46 Hgb 12.2 Hct 39.5 MCV 88.6 MCH 27.4 MCHC 30.9 L RDW Std Deviation 43.7 RDW Coeff of Bianca 13.4 Plt Count 266 MPV 9.1 Immature Gran % (Auto) 0.400 Neut % (Auto) 64.1 Lymph % (Auto) 26.9 Meade % (Auto) 6.7 Eos % (Auto) 1.5 Baso % (Auto) 0.4 Absolute Neuts (auto) 5.5 Absolute Lymphs (auto) 2.30 Nucleated RBC % 0 Sodium 136 Potassium 3.9 Chloride 102 Carbon Dioxide 27.0 Anion Gap 7 BUN 6 L Creatinine 0.57 Estim Creat Clear Calc 102.02 Est GFR (MDRD) Af Amer 148 Est GFR (MDRD) Non-Af 122 BUN/Creatinine Ratio 10.6 Glucose 90 Calcium 9.2 Total Bilirubin 0.40 AST 27 ALT 34 Alkaline Phosphatase 91 Total Protein 7.8 Albumin 3.2 Globulin 4.6 H Albumin/Globulin Ratio 0.7 L Lipase 65 L Urine Color Yellow Urine Clarity Clear Urine pH 6.0 Ur Specific [place] 1.010 Urine Protein Negative Urine Glucose (UA) Normal Urine Ketones Negative Urine Occult Blood Negative Urine Nitrite Negative Urine Bilirubin Negative Urine Urobilinogen Normal Ur Leukocyte Esterase 500 H Urine RBC 0 SEEN Urine WBC 0-5 SEEN Ur Squamous Epith Cells 5-10 SEEN Urine Bacteria 0 SEEN Urine Mucus 0 SEEN Urine Trichomonas 0-5 SEEN Radiography Diagnostic Testing: Clinical Impression(s) from Imaging Studies Abdomen/Pelvis CT 12/26/20 16:00 IMPRESSION: 5.5 cm fluid collection in the posterior paraspinal soft tissue could represent a postoperative seroma versus abscess. Fatty liver. No other acute findings. Electronically Signed: [place] Seymour MD at 18:43 EDT Tel , Service support , Discharge Plan Triage Chief Complaint: Abd Pain ED Provider: Brayan Guzmán Dx/Rx/DC Orders Clinical Impression: Abdominal pain in female patient Instructions: ED Abdominal Pain Unkn Cause Fem Prescriptions: New ondansetron [ondansetron] 4 MG tablet 4 mg PO Q8H PRN PRN (Reason: Nausea) Qty: 10 RF: 0 No Action albuterol sulfate [Ventolin HFA] 1 INHALER inhaler 1 - 2 puff inhalation Q4H PRN PRN (Reason: Wheezing) Qty: 1 RF: 0 [employer] 1 EACH tablet 1 tab PO DAILY RF: 0 fluoxetine [Prozac] 40 mg Capsule 40 mg PO DAILY RF: 0 famotidine 20 mg tablet 20 mg PO BID RF: 0 Myrbetriq 25 mg tablet extended release 24 hr 25 mg PO DAILY RF: 0 bupropion HCl 300 mg Tablet Extended Release 24 Hr 300 mg PO DAILY Qty: 30 RF: 0 clotrimazole-betamethasone 1-0.05 % Cream 1 applic topical BID Qty: 15 RF: 1 gabapentin 100 mg Capsule See Rx Instructions .ROUTE .COMPLEX 14 Days Qty: 60 RF: 0 baclofen 10 mg tablet 10 mg PO TID PRN (Reason: muscle spasms) 14 Days Qty: 30 RF: 0 acetaminophen 500 mg tablet 1,000 mg PO Q8H Qty: 0 RF: 0 zolpidem 5 mg Tablet 5 mg PO QHS PRN PRN (Reason: Insomnia) Qty: 10 RF: 0 oxycodone 5 mg Tablet 10 mg PO Q4H PRN PRN (Reason: Pain Score 6-10) 7 Days Qty: 56 RF: 0 oxycodone-acetaminophen 7.5-325 mg tablet 1 tab PO Q6H PRN (Reason: pain) 10 Days Qty: 40 RF: 0 Primary Care Provider: Sobeida Berger Referrals: Sobeida Berger MD [Primary Care Provider] - 3-5 Days Gael Avery DO [STAFF PHYSICIAN] - 5-7 Days Disposition Disposition: Home, Self Care
[2020-12-26] MEDS: Morphine 4 MG/ML Syringe IV (16:18)
[2020-12-26] MEDS: Ondansetron 4 MG/2 ML Vial IV (16:18)
[2020-12-26] MEDS: 0.9% Normal Saline 1,000 ML 1000 ML IV (16:18)
[2020-12-26 16:40] LABS: Absolute Neutrophil Count 5.5 X10^3/uL (2.0-7.7); Basophil# 0.03 X10^3/uL; Basophil% 0.4 % (0-1); Eosinophil# 0.13 X10^3/uL; Eosinophils% 1.5 % (0-5); Hematocrit 39.5 % (37-47); Hemoglobin 12.2 g/dL (12.0-15.0); Lymphocyte % 26.9 % (19-41); Mean Corp Hgb Conc 30.9 g/dL (32-36); Mean Corpuscular Hgb 27.4 pg (27.0-32.0); Mean Corpuscular Volume 88.6 fL (81-99); Mean Platelet Vol. 9.1 fl (6.2-12.0); Monocyte# 0.57 X10^3/uL; Monocyte% 6.7 % (0-10); NRBC Flagged by Analyzer 0 % (0-5); Neutrophil % 64.1 % (47-70); Platelet Count 266 K/mm3 (150-450); RBC Distribution Width CV 13.4 % (11.6-14.6); RBC Distribution Width SD 43.7 fl (35.1-43.9); Red Blood Count 4.46 M/mm3 (4.2-5.4); White Blood Count 8.6 K/mm3 (4.4-11.0)
[2020-12-26 16:53] LABS: ALB/GLOB Ratio 0.7 RATIO (0.9-2.4); AST(SGOT) 27 U/L (15-37); Alanine Aminotransfer ALT/SGPT 34 U/L (13-56); Albumin, Serum 3.2 g/dL (3.2-5.0); Alkaline Phosphatase 91 U/L (45-117); Anion Gap 7 (5-15); BUN 6 mg/dL (7-18); BUN/Creat Ratio 10.6 RATIO (10-20); Calcium,Total 9.2 mg/dL (8.5-10.1); Chloride 102 mmol/L (98-107); Creatinine, Serum 0.57 mg/dL (0.55-1.02); EST Glomerular Filtration Rate 122 mL/min (>60); Est Glom Filt Rate - Afr Amer 148 mL/min (>60); Estimated Creatinine Clearance 102.02 ml/min; Globulin 4.6 g/dL (2.2-4.2); Glucose 90 mg/dL (74-106); Lipase 65 U/L (73-393); Potassium 3.9 mmol/L (3.5-5.1); Protein, Total 7.8 g/dL (6.4-8.2); Sodium Level 136 mmol/L (136-145)
[2020-12-26 16:58] LABS: Bacteria 0 SEEN /hpf (None Seen); Mucous, Urine 0 SEEN /hpf (<or=2+); Red Blood Cells-Urine 0 SEEN /hpf (0-5)
[2020-12-26 17:03] LABS: Color, Urine Yellow (Yellow); Glucose, Dipstick Normal (Normal); Ketone-Dipstick Negative (Negative); Leukocyte Esterase-Dipstick 500 /ul (Negative); Nitrite-Dipstick Negative (Negative); Occult Blood-Urine Negative /ul (Negative); Protein-Dipstick Negative (Negative); Urine Bilirubin Dipstick Negative (Negative); Urine Clarity Clear (Clear); Urine Urobilinogen Normal (Normal)
[2020-12-26 17:11] LABS: Squamous Epithelial Cells - UA 5-10 SEEN /hpf (5-10); White Blood Cells 0-5 SEEN /hpf (0-5)
[2020-12-26 17:12] LABS: Trichomonas 0-5 SEEN /hpf (None Seen)
[2020-12-26 17:39] VITALS: RESP 16
[2020-12-26 19:06] VITALS: RESP 16
== END 2020-12-26 19:35 | disposition home or self-care (01) ==
PROVIDERS: Emergency Provider Emergency Medicine; PCP Internal Medicine
DX: R10.32 Left lower quadrant pain (principal); R10.31 Right lower quadrant pain; R10.11 Right upper quadrant pain; R10.33 Periumbilical pain; R11.2 Nausea with vomiting, unspecified; K58.0 Irritable bowel syndrome with diarrhea; J44.9 Chronic obstructive pulmonary disease, unspecified; E66.9 Obesity, unspecified; F31.9 Bipolar disorder, unspecified; F41.9 Anxiety disorder, unspecified; F17.210 Nicotine dependence, cigarettes, uncomplicated; Z79.899 Other long term (current) drug therapy
CPT/HCPCS: 74177; 80053; 81001; 83690; 85025; 87426; 96361; 96374; 96375; 99285; J7030; Q9967; J2405

== ENCOUNTER 2021-01-09 15:30 | Outpatient (RCR) | payer MEDICAID, SELFPAY ==
--- NOTE | 2020-12-18 13:36 | HP.PTEVAL_ITS ---
Patient's Visit Information SHAHNAZ ESPANA is a 45 year old F referred to Physical Therapy by Dr. Sobeida Berger MD with a diagnosis of LAMINECTOMY. Date of Evaluation: 12/18/20 Physical Therapist: Misbah Johnson, PT, Cert MDT, OCS - Visit Plan Frequency: 2x /Week Duration: 4 Weeks Plan: S/P LAMINECTOMY/DISECTOMY L3-4. PT INTERVETIONS DLS,POSTURAL EX'S,LE STRENGTHENING ,GRADE LUMBAR ROM ,ENDURANCE AND MODALTIES NEEDED - Subjective This 45 y/o male presents to physical therapy with laminectomy. Patient had s/p L3-4 DISECTOMY/LAMENECTOMY Nov 22 2020 at [facility] . Patient severe lateral HNP which was revealed from MRI. Surgery was done by DR. Avery . Patient went Rehab [facility] and D/C with [facility] on Dec 062020. Patient uses [facility] due to falling prior but no falls since being home. Pain located Left> Right LS region buttock ,lateral hip groin to anterior thigh to knee. Symptoms aggravating factors walking, sitting ,bending /lifting ,twisting. Alleviating ICE /MEDS. Medication: Oxycodone, gabapentin. Denies paresthesia/tingling. Bowel/bladder -. Coughing/sneezing +. Prior to surgery no therapy ,just cortisone. 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 Patient pain affects QOL and function. Patient condition affects walking/standing and RTW. Goal decrease pain and RTEW. SOCIAL: Partner. 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 GAIT: reciprocal pattern mild antalgic gait. NEURO: denies paresthesia/tingling ,reflexes L3-4,L4-5 1/3. INSCION: well approximate. SYMMITRIES: align. MMT: quads/hams 4-/5 right ,left 4/5,hip flexion 3+/5,ankle 4/5 - Special Tests L/S Slump test left side: Negative L/S Slump test right side: Negative L/S Left Straight Leg Raise: Negative L/S Right Straight Leg Raise: Negative - Balance/Special Test Scores Oswestry Low Back Score: 36 - Goals Goal 1:: I with HEP to improve gait. Goal Time Frame: 4-6 Weeks Goal 2:: Patient to improve posture/body mechanics to RTW. Goal 3:: Patient to increase lumbar ROM for function of recovery Goal Time Frame: 4-6 Weeks Goal 4:: Patient to demonstrate 50% improvement with decrease LP and right leg pain Goal Time Frame: 4-6 Weeks Goal 5:: Aik4irq improve back owestry score by 5 points to improve QOL Goal Time Frame: 4-6 Weeks Goal 6:: Patient to increase strength hip to 4-/5 to improve gait Goal Time Frame: 4-6 Weeks - Rehabilitation Potential Physical Therapy Diagnosis: This patient underwent s/p laminectomy/discectomy L3-4 with pain ,weakness Right leg, core ,decrease lumbar ROM impairs function walking and standing with ADLS' and RTW thus will benefit from skilled PT Rehabilitation Potential: Good - Anticipated Interventions Patient/Client Instruction: Educate patient on: Condition, Plan of Care For the Purpose of:: To decrease pain, To increase ROM, To improve muscle performance and motor function, To improve ability to perform ADL's, To increase tolerance to activity/condition/position, To improve ability of physical actions for home/community/work/leisure, To improve health of tissue, To decrease soft tissue restriction, To increase flexibility/ROM, To reduce risk of recurrence Therapeutic Exercise to Include: Strength training, Balance training, Postural training, Flexibilty training, Active ROM, Dynamic Lumbar Stabilization Comment: BLE For the Purpose of:: To decrease pain, To increase ROM, To improve muscle performance and motor function, To improve ability to perform ADL's, To increase tolerance to activity/condition/position, To improve ability of physical actions for home/community/work/leisure, To decrease soft tissue restriction, To increase flexibility/ROM, To reduce risk of recurrence TENS: Yes IF ES: Yes Cryotherapy (ice pack, ice massage): Yes Thermo therapy (hot pack): Yes For the Purpose of:: To decrease pain, To increase ROM, To increase oxygenation perfusion, To improve health of tissue, To decrease soft tissue restriction Thank you for the opportunity to evaluate your patient. For Medicare and Medicare HMO plans, please review the plan of care and approve it. It will need to be FAXED BACK to us at [phone] for Medicare purposes. For Medicare only, by signing this I certify the plan of care. Please let me know if there are questions or concerns regarding this plan of care. Physician Signature:___ Date:
--- NOTE | 2020-12-19 13:49 | HP.OTEVAL_ITS ---
Patient's Visit Information SHAHNAZ ESPANA is a 45 year old F, referred to Occupational Therapy by Dr. Sobeida Berger MD, with a diagnosis of laminectomy. Date of Evaluation: 12/18/20 Occupational Therapist: Preeti Roman, ALLIE/Jacqueline, CHT - Subjective This 45 year old pt was seen for OT eval for laminectomy. pt states Nov.22 021 pt states she underwent laminectomy L3 & L4. pt states she struggled with pinched nerves for over a year. Pt states she continued to work with her pain and after months of pain she decided to have sx. pt states she was on the rehab unit for about 13 days. pt states while she was on rehab unit. pt states she has been home and performing her HEP with t-band and free wts. pt states she does walk outside of the home with a wheeled walker. pt is not aware of the lifting restrictions at this time. pt states she was ready to get home. - ADLs Comments: pt lives in a home with pts client for 15 years 7 days a week ( no relation to pt) pt states he does help her with as much as he can- he did help her with her socks. pt states she has a friend who is doing her cooking and cleaning- pt states she has a room with a chair. pt states she can do light cleaning, cooking. pt states she does use wheeled walker. pt states she does use a shower chair. long handled sponge, sock aide, field artillery cannoneer. pt states she only needs assist with socks and shoes indra care. pt states she does have a tray on her walker-. pt is currently performing free wt 5# shoulder flexion, shoulder abduction, punch outs, punch ups, biceps . pt states she is doing her UB exercises 5-6 x a day of 1 set of 30. . - ROM ROM Comments: pt luciobartolo EDDIEGhada WNL - Strength Shoulder: right 4+/5 left 4+/5 Elbow: right 4+/5 left 4+/5 Quality Controller: right 35# left 35# Lateral Pinch: right 10# left 6# Tripod Pinch: right 8# left 6# - Sensation Thumb: right 2.83 left 2.83 Index: right 2.83 left 2.83 Middle: right 2.83 left 2.83 Ring: right 2.83 left 2.83 Little: right 2.83 left 2.83 Sensation Comments: normal sensation - Quick DASH-Disab of Arm,Shoulder& Hand Quick DASH Score: 33.3325 - Rehabilitation General Assessment: pt demo good functional UB strength to perform her ADLS. Pt did express indra care was difficult more from hip and low back pain- pt has toilet tongs- This therapist ed. pt on other alternatives toilet tongs that might work better- pt was receptive but denied any further needs at this time. pt will continue with Physical therapy to increase her ind. with ambulation. - Visit Plan TEXT: Thank you for the opportunity to evaluate your patient. For Medicare and Medicare HMO plans, please review the plan of care and approve it. It will need to be FAXED BACK to us at [phone] for Medicare purposes. Please let me know if there are questions or concerns regarding this plan of care. Physician Signature: Date:
--- NOTE | 2021-04-12 10:14 | HP.PT.NRP ---
SHAHNAZ ESPANA was seen in my office for initial evaluation on 12/18/20. The following Plan of Care was established for this patient: Initial Frequency: 2x /Week Initial Duration: 4 Weeks Patient/Client Instruction: Educate patient on: Condition, Plan of Care For the Purpose of:: To decrease pain, To increase ROM, To improve muscle performance and motor function, To improve ability to perform ADL's, To increase tolerance to activity/condition/position, To improve ability of physical actions for home/community/work/leisure, To improve health of tissue, To decrease soft tissue restriction, To increase flexibility/ROM, To reduce risk of recurrence Therapeutic Exercise to Include: Strength training, Balance training, Postural training, Flexibilty training, Active ROM, Dynamic Lumbar Stabilization For the Purpose of:: To decrease pain, To increase ROM, To improve muscle performance and motor function, To improve ability to perform ADL's, To increase tolerance to activity/condition/position, To improve ability of physical actions for home/community/work/leisure, To decrease soft tissue restriction, To increase flexibility/ROM, To reduce risk of recurrence TENS: Yes IF ES: Yes Cryotherapy (ice pack, ice massage): Yes Thermo therapy (hot pack): Yes For the Purpose of:: To decrease pain, To increase ROM, To increase oxygenation perfusion, To improve health of tissue, To decrease soft tissue restriction This patient was last seen in our office . Pertinent comments regarding their Physical therapy will appear below: Patient seen for PT for HEP s/p laminectomy thus is d/c At this point I will be discontinuing this patient from physical therapy. I would be happy to see this patient again in the future if found appropriate by the physician. Thank you! Misbah Johnson, PT, Cert MDT, OCS Balance/Gait/Functional tests - Balance/Special Test Scores Oswestry Low Back Score: 36
== END 2021-01-09 19:00 | disposition home or self-care (01) ==
LOC: PT 15:30
PROVIDERS: PCP Internal Medicine; Referring Provider Internal Medicine; Visit Provider Internal Medicine
DX: Z98.890 Other specified postprocedural states (principal)
CPT/HCPCS: 97110; 97162; 97166

== ENCOUNTER 2021-01-09 23:57 | Emergency (ER) | payer MEDICAID, SELFPAY ==
[2021-01-09 23:58] VITALS: BP 116/66; PULSE 82; RESP 18; TEMP 36.9; O2SAT 95; BMI 43.5
--- NOTE | 2021-01-10 00:34 | RAD_ITS ---
STUDY: X-RAY - LEFT ELBOW REASON FOR EXAM: Female, 45 years old. Injury/Pain TECHNIQUE: 3 view(s) of the elbow. COMPARISON: None. FINDINGS: Normal visualized humerus, radius and ulna. Normal radiocapitellar and ulnotrochlear articulations. The soft tissue structures are unremarkable. There is no demonstrated fracture. RAD/Elbow min 3 Views IMPRESSION: Normal x-ray examination of the elbow. Electronically Signed: David Lane MD at 1:32 EDT Tel , Service support ,
--- NOTE | 2021-01-10 00:45 | EDS_ITS ---
HPI History of Present Illness HPI Narrative: Patient presents with left elbow pain that has been getting worse over the past 4 days. Patient denies any trauma or injury. Patient states she had back surgery 7 weeks ago. Patient states she has been using her left arm to pull herself up in bed and whenever she rolls over she uses her left elbow. Patient states she is wearing a brace on her right wrist for carpal tunnel syndrome. Patient states that her left elbow pain has been getting worse because she has been trying to favor her right wrist. Patient states her pain is worse with complete extension. Patient describes her pain as sharp. Patient states she has some weakness but this is due to the pain. Patient denies any paresthesias. Chief Complaint: Upper Extremity Injury Informant: patient Onset/Context/Timing Onset: Days (4) Context: Gradual Onset Timing: Continuous Quality of Pain: Sharp Location: Left elbow Worsened by: Extension Relieved by: Nothing Associated Symptoms Associated Symptoms: Negative for Parasthesia, Weakness and Loss of Funtion PFSH [facility] Medical History Abrasion Alcohol use Anxiety Asthma Bipolar disorder Carpal tunnel syndrome Chipped tooth Chronic cough Chronic pain COPD (chronic obstructive pulmonary disease) Easy bruising Hepatitis Hepatitis C Herniated cervical disc History of edema History of heartburn History of herniated intervertebral disc History of IBS History of stress test Hx of degenerative disc disease Injury of back Leg cramps Lumbar radicular pain MARIA INES (obstructive sleep apnea) Peptic ulcer Polysubstance abuse Schizophrenia Shortness of breath on exertion Smoker Tobacco use (Unknown) Ulnar nerve laceration Wears glasses Home Medications albuterol sulfate [Ventolin HFA] 1 - 2 puff INHALATION Q4H PRN PRN #1 inhaler 07/21/15 [Rx Last Taken 10/13/17] [employer] 1 tab PO DAILY 10/16/17 [History Last Taken 10/15/17] fluoxetine [Prozac] 40 mg PO DAILY 11/10/20 [History Last Taken Unknown] Myrbetriq 25 mg PO DAILY 11/27/20 [History Last Taken Unknown] famotidine 20 mg PO BID 11/27/20 [History Last Taken Unknown] acetaminophen 1,000 mg PO Q8H #0 tab 12/06/20 [Rx Last Taken Unknown] bupropion HCl 300 mg PO DAILY #30 tab 12/06/20 [Rx Last Taken Unknown] clotrimazole-betamethasone 1 applic TOPICAL BID #15 g 12/06/20 [Rx Last Taken Unknown] zolpidem 5 mg PO QHS PRN PRN #10 tab 12/06/20 [Rx Last Taken Unknown] oxycodone-acetaminophen 7.5 mg-325 mg tablet 1 tab PO TID PRN 10 Days #30 tab 01/02/21 [Rx Last Taken Unknown] melatonin 10 mg tablet 30 mg PO HS PRN tab 01/09/21 [History Last Taken Unknown] Allergy/AdvReac Type Severity Reaction Status Date / Time hydrocodone Allergy Intermediate Hives Verified 01/09/21 14:06 Surgical History History of appendectomy History of cholecystectomy History of decompression of ulnar nerve History of tubal ligation Social History Smoking Status: Current every day smoker tobacco type: cigarettes ROS ROS ED Constitutional Constitutional ED: Denies chills or fever(s) Eyes Eyes: Denies blurry vision or change in vision ENT ENT ED: Denies rhinorrhea or sore throat Cardiovascular Cardiovascular: Denies chest pain or palpitations Respiratory/Chest Respiratory/Chest: Denies cough or dyspnea Gastrointestinal Gastrointestinal: Denies nausea or vomiting Genitourinary Genitourinary ED: Denies dysuria or hematuria Musculoskeletal Musculoskeletal: Denies back pain or neck pain Integumentary Denies abscess or rash Neurologic Neurologic: Denies headache(s) or weakness Allergic/Immunologic Allergic/Immunologic ED: Denies mouth swelling or urticaria EXAM Physical Exam Const Vital Signs: 01/09/21 23:58 Temperature 98.4 F Temperature Source Oral Pulse Rate 82 Respiratory Rate 18 Blood Pressure 116/66 Blood Pressure Mean 82 Pulse Ox 95 Oxygen Delivery Method Room Air Positive well nourished and well developed General Appearance ED: well developed HEENT Reports moist mucous membranes Neck full ROM and supple Extremity Extremity Narrative: There is tenderness over the posterior aspect of the left elbow near the lateral epicondyle. There is no edema or ecchymosis. There is no bony crepitance or step-off. There is no pain with resistive extension of the wrist. There is no tenderness over the epicondyle itself. Range of motion was slightly limited in complete extension of the elbow secondary to pain. Radial pulses are equal bilaterally. Sensation was intact to light touch in the radial, median, and ulnar areas. Strength is 5/5 in the radial, median, and ulnar areas. Neuro oriented x3, CN's II-XII intact bilaterally, moves all extremities, no focal motor deficits and no sensory deficits noted Sensorium / Orientation: alert MDM MDM MDM Narrative Medical decision making narrative: X-rays of the left elbow were obtained. There are 3 views. On my interpretation, there is no acute fracture or dislocation. There is no soft tissue swelling noted. There are no foreign bodies. Radiologist also interpreted the x-rays and agrees. Patient was advised of her findings. Patient was instructed to use ice to the area. Patient was instructed to take Tylenol or ibuprofen as needed for pain. Patient was instructed to follow-up with her primary care physician in 5 to 7 days. Patient understood and was agreeable with the plan. All questions were answered. Discharge Plan Triage Chief Complaint: Upper Extremity Injury ED Provider: Brayan Guzmán Dx/Rx/DC Orders Clinical Impression: Strain of left elbow and forearm Instructions: ED Sprain, Elbow, ED Muscle Strain, Extremity Prescriptions: No Action melatonin 10 mg tablet 30 mg PO HS PRNRF: 0 albuterol sulfate [Ventolin HFA] 1 INHALER inhaler 1 - 2 puff inhalation Q4H PRN PRN (Reason: Wheezing) Qty: 1 RF: 0 [employer] 1 EACH tablet 1 tab PO DAILY RF: 0 fluoxetine [Prozac] 40 mg Capsule 40 mg PO DAILY RF: 0 famotidine 20 mg tablet 20 mg PO BID RF: 0 Myrbetriq 25 mg tablet extended release 24 hr 25 mg PO DAILY RF: 0 bupropion HCl 300 mg Tablet Extended Release 24 Hr 300 mg PO DAILY Qty: 30 RF: 0 clotrimazole-betamethasone 1-0.05 % Cream 1 applic topical BID Qty: 15 RF: 1 acetaminophen 500 mg tablet 1,000 mg PO Q8H Qty: 0 RF: 0 zolpidem 5 mg Tablet 5 mg PO QHS PRN PRN (Reason: Insomnia) Qty: 10 RF: 0 oxycodone-acetaminophen 7.5-325 mg tablet 1 tab PO TID PRN (Reason: pain) 10 Days Qty: 30 RF: 0 Primary Care Provider: Sobeida Berger Referrals: Sobeida Berger MD [Primary Care Provider] - 5-7 Days Disposition Disposition: Home, Self Care
== END 2021-01-10 03:25 | disposition home or self-care (01) ==
PROVIDERS: Emergency Provider Emergency Medicine; PCP Internal Medicine
DX: S56.912A Strain of unspecified muscles, fascia and tendons at forearm level, left arm, initial encounter (principal); X58.XXXA Exposure to other specified factors, initial encounter; Y93.9 Activity, unspecified; Y92.9 Unspecified place or not applicable; Y99.9 Unspecified external cause status; J44.9 Chronic obstructive pulmonary disease, unspecified; F31.9 Bipolar disorder, unspecified; F17.210 Nicotine dependence, cigarettes, uncomplicated; Z79.899 Other long term (current) drug therapy
CPT/HCPCS: 73080; 99282

== ENCOUNTER 2021-02-12 18:50 | Emergency (ER) | payer MEDICAID, SELFPAY ==
[2021-02-12 18:51] VITALS: BP 156/87; PULSE 95; RESP 20; TEMP 36.3; O2SAT 108; BMI 43.2
[2021-02-12] MEDS: Morphine 4 MG/ML Syringe IM (21:44)
--- NOTE | 2021-02-12 21:46 | RAD_ITS ---
HISTORY: Trauma, injury, pain EXAMINATION/TECHNIQUE: XR Spine Lumbar 2 or 3 Views: 3 views COMPARISON: None FINDINGS: VERTEBRAE: Preserved vertebral body height. No acute fracture. No spondylolisthesis. Preservation of the normal lumbar lordosis. DISCS: Disc spaces are maintained. INCLUDED ABDOMEN: Included bowel gas pattern is non-obstructive. RAD/Lumbar Spine 2 or 3 Views IMPRESSION: No acute findings. at [id number] Reported and signed by: Joshua Varghese MD Electronically Signed: Joshua Varghese MD at 22:58 EST Tel , Service support ,
--- NOTE | 2021-02-12 22:32 | EDS_ITS ---
HPI History of Present Illness Chief Complaint: Back Informant: patient Onset/Context/Timing Onset: Days (2) Context: Gradual Onset Timing: Continuous Quality: Sharp, Dull, Aching, Burning and Throbbing Location: Lumbar and Right Leg Worsened by: improves with Movement Relieved by: Nothing Associated Symptoms Associated Symptoms: Radiation to Right Leg; Negative for Numbness, Tingling, Radiation to Left Leg, Fever, Abdominal Pain, Dysuria, Unable to Ambulate, Unable to Transfer, Urinary Retention, Urinary Incontinence, Constipation and Fecal Incontinence Narrative Narrative: Patient presents with low back pain that has been getting worse over the past 2 days. Patient states her pain is constant. Patient is states her pain is sharp, dull, aching, burning, and throbbing. Patient states it is over the lower lumbar area. Patient states it radiates to her right leg. Patient denies any paresthesias or weakness. Patient admits to some urinary urgency but denies any dysuria or urinary incontinence. Patient denies any constipation or fecal incontinence. Patient had a discectomy of her L3-4 disc in November. Patient states she was doing well until the last couple days. Patient denies any fevers or chills. [facility] Medical History Abrasion Alcohol use Anxiety Asthma Bipolar disorder Carpal tunnel syndrome Chipped tooth Chronic cough Chronic pain COPD (chronic obstructive pulmonary disease) Easy bruising Hepatitis Hepatitis C Herniated cervical disc History of edema History of heartburn History of herniated intervertebral disc History of IBS History of stress test Hx of degenerative disc disease Injury of back Leg cramps Lumbar radicular pain MARIA INES (obstructive sleep apnea) Peptic ulcer Polysubstance abuse Schizophrenia Shortness of breath on exertion Smoker Tobacco use (Unknown) Ulnar nerve laceration Wears glasses Home Medications albuterol sulfate [Ventolin HFA] 1 - 2 puff INHALATION Q4H PRN PRN #1 inhaler 07/21/15 [Rx Last Taken 10/13/17] [employer] 1 tab PO DAILY 10/16/17 [History Last Taken 10/15/17] fluoxetine [Prozac] 40 mg PO DAILY 11/10/20 [History Last Taken Unknown] acetaminophen 1,000 mg PO Q8H #0 tab 12/06/20 [Rx Last Taken Unknown] bupropion HCl 300 mg PO DAILY #30 tab 12/06/20 [Rx Last Taken Unknown] zolpidem 5 mg PO QHS PRN PRN #10 tab 12/06/20 [Rx Last Taken Unknown] melatonin 10 mg tablet 30 mg PO HS PRN tab 01/09/21 [History Last Taken Unknown] Lactobacillus acidophilus [Acidophilus] 1 tab PO DAILY 02/12/21 [History Last Taken Unknown] oxycodone-acetaminophen 1 tab PO Q6H PRN PRN 3 Days #12 tablet 02/12/21 [Rx Last Taken Unknown] Allergy/AdvReac Type Severity Reaction Status Date / Time hydrocodone Allergy Intermediate Hives Verified 02/12/21 18:53 Surgical History History of appendectomy History of back surgery History of cholecystectomy History of decompression of ulnar nerve History of tubal ligation Social History Smoking Status: Current every day smoker tobacco type: cigarettes ROS ROS ED Constitutional Constitutional ED: Denies chills or fever(s) Eyes Eyes: Reports diplopia; Denies blurry vision ENT ENT ED: Denies rhinorrhea or sore throat Cardiovascular Cardiovascular: Denies chest pain or palpitations Respiratory/Chest Respiratory/Chest: Denies cough or dyspnea Gastrointestinal Gastrointestinal: Denies nausea or vomiting Genitourinary Genitourinary ED: Denies dysuria or hematuria Musculoskeletal Musculoskeletal: Reports back pain; Denies neck pain Integumentary Denies abscess or rash Neurologic Neurologic: Denies headache(s) or weakness Allergic/Immunologic Allergic/Immunologic ED: Denies mouth swelling or urticaria EXAM Physical Exam Const Vital Signs: 02/12/21 18:51 Temperature 97.3 F L Temperature Source Temporal Pulse Rate 95 Respiratory Rate 20 H Blood Pressure 156/87 H Blood Pressure Mean 110 Pulse Ox 108 Oxygen Delivery Method Room Air Positive well nourished and well developed General Appearance ED: well developed HEENT Reports moist mucous membranes Neck supple and no JVD Back/Spine Back/Spine Narrative: There is right lumbar paraspinal muscle tenderness. There is some mild midline tenderness. There is no bony crepitance or step-off. Range of motion was slightly limited in all motions of the lumbar spine secondary to pain. Extremity normal to inspection General Extremety ED: Negative for edema or tenderness General Extremity: Negative for edema Neuro oriented x3 and no sensory deficits noted Sensorium / Orientation: alert Motor Exam: strength 5/5 throughout Deep Tendon Reflexes: Rt Patellar (L4): 2+, Lt Patellar (L4): 2+, Rt Ankle (S1): 2+ and Lt Ankle (S1): 2+ Deep Tendon Reflexes Back: Rt Patellar (L4): 2+, Lt Patellar (L4): 2+, Rt Ankle (S1): 2+ and Lt Ankle (S1): 2+ Psych mental status grossly normal MDM MDM MDM Narrative Medical decision making narrative: Patient was given injection of morphine here. X-rays of the lumbar spine were obtained. There are 3 views. On my interpretation, there is some mild degenerative changes at L3-L4. There is no acute fracture. There is no spondylolisthesis. There is no acute abnormality. Radiologist also interpreted the x-rays and agrees. Patient was given a prescription for a short course of Percocet. Patient was instructed to use ice to the area. Patient was instructed to follow-up with her spine surgeon in 5 to 7 days. Patient understood and was agreeable with the plan. All questions were answered. Radiography X-Ray: LS SPine, Read by ED Physician, Read by Radiologist, No Fracture, Normal Bony Alignment and DJD (Mild DJD at L3-L4) Diagnostic Testing: Clinical Impression(s) from Imaging Studies Lumbar Spine X-Ray 02/12/21 21:46 IMPRESSION: No acute findings. at 2259 Reported and signed by: Joshua Varghese MD Electronically Signed: Joshua Varghese MD at 22:58 EST Tel , Service support , Discharge Plan Triage Chief Complaint: Back ED Provider: Brayan Guzmán Dx/Rx/DC Orders Clinical Impression: Sciatica of right side Instructions: ED Back Pain (Acute or Chronic) Prescriptions: New oxycodone-acetaminophen [oxycodone-acetaminophen] 1 TABLET tablet 1 tab PO Q6H PRN PRN (Reason: Pain) 3 Days Qty: 12 RF: 0 No Action melatonin 10 mg tablet 30 mg PO HS PRN (Reason: Insomnia) RF: 0 albuterol sulfate [Ventolin HFA] 1 INHALER inhaler 1 - 2 puff inhalation Q4H PRN PRN (Reason: Wheezing) Qty: 1 RF: 0 [employer] 1 EACH tablet 1 tab PO DAILY RF: 0 fluoxetine [Prozac] 40 mg Capsule 40 mg PO DAILY RF: 0 bupropion HCl 300 mg Tablet Extended Release 24 Hr 300 mg PO DAILY Qty: 30 RF: 0 acetaminophen 500 mg tablet 1,000 mg PO Q8H Qty: 0 RF: 0 zolpidem 5 mg Tablet 5 mg PO QHS PRN PRN (Reason: Insomnia) Qty: 10 RF: 0 Acidophilus Tablet,Chewable 1 tab PO DAILY RF: 0 Primary Care Provider: Sobeida Berger Referrals: Sobeida Berger MD [Primary Care Provider] - 5-7 Days Gael Avery DO [STAFF PHYSICIAN] - 5-7 Days Disposition Disposition: Home, Self Care
== END 2021-02-12 23:22 | disposition home or self-care (01) ==
PROVIDERS: Emergency Provider Emergency Medicine; PCP Internal Medicine
DX: M54.41 Lumbago with sciatica, right side (principal); J44.9 Chronic obstructive pulmonary disease, unspecified; F31.9 Bipolar disorder, unspecified; F41.9 Anxiety disorder, unspecified; F17.210 Nicotine dependence, cigarettes, uncomplicated; Z79.899 Other long term (current) drug therapy
CPT/HCPCS: 72100; 96372; 99282

== ENCOUNTER → 2021-03-12 07:41 | Outpatient (CLI) | payer MEDICAID, SELFPAY ==
--- NOTE | 2021-03-12 07:42 | MRI_ITS ---
STUDY: MRI LUMBAR SPINE WITH AND WITHOUT CONTRAST REASON FOR EXAM: Female, 45 years old. pain, low back pain, rt hip/groin pain, hx prior fusion TECHNIQUE: Standardized fat and water weighted pulse sequences were obtained in the sagittal and axial planes. IV 22mL Dotarem was administered for the contrast portion of the examination. COMPARISON: CT of the abdomen and pelvis dated December 26, 2020. Lumbar spine x-ray dated February 12, 2021. MRI of the lumbar spine dated AUGUST 27, 2020 FINDINGS: Interspinous and supraspinous postsurgical scarring and mild enhancing fibrosis is seen at the L2 down to S1 levels. Right partial facetectomy or decompressive osteotomy noted at the L3-L4 level. Postsurgical susceptibility scarring is present in this region. These are new findings since the MRI of the lumbar spine dated AUGUST 27, 2020. Moderate disc space narrowing and endplate degenerative changes noted at T11-T12. Normal lumbar lordosis. There is no substantial scoliosis. Normal conus medullaris that terminates at the T12-L1 level. L1-2: Normal endplates. Normal disc height, hydration and morphology. Normal bilateral facet joints. Normal central canal and bilateral lateral recesses. Normal bilateral intervertebral neural foramina. L2-3: Normal endplates. Normal disc height, hydration and morphology. Normal bilateral facet joints. Normal central canal and bilateral lateral recesses. Normal bilateral intervertebral neural foramina. L3-4: Normal endplates. Normal disc height, hydration and morphology. Right partial facetectomy or decompressive osteotomy noted at the L3-L4 level. The right facet joint is mildly hypertrophied. Mild fibrotic scarring is present in the opening of the right neural foramen. Normal central canal and bilateral lateral recesses. Normal bilateral intervertebral neural foramina. L4-5: Normal endplates. The disc is desiccated. Normal disc height and morphology. Normal bilateral facet joints. Normal central canal and bilateral lateral recesses. Normal bilateral intervertebral neural foramina. L5-S1: Normal endplates. Normal disc height, hydration and morphology. Normal bilateral facet joints. Normal central canal and bilateral lateral recesses. Normal bilateral intervertebral neural foramina. Normal visualized sacral ala. There is mild paraspinal muscular atrophy. MRI/Spine Lumbar W/WO Contrast IMPRESSION: 1. Multilevel degenerative changes, as described above. 2. Interspinous and supraspinous postsurgical scarring and mild enhancing fibrosis is seen at the L2 down to S1 levels. Postsurgical susceptibility scarring is present in this region. These are new findings since the MRI of the lumbar spine dated AUGUST 27, 2020. 3. Right partial facetectomy or decompressive osteotomy noted at the L3-L4 level. The right facet joint is mildly hypertrophied. Mild fibrotic scarring is present in the opening of the right neural foramen. Electronically Signed: Neville Honeycutt MD at 17:05 EST , Service support ,
== END ==
PROVIDERS: PCP Internal Medicine; Referring Provider Orthopaedic Surgery; Visit Provider Orthopaedic Surgery
DX: M54.41 Lumbago with sciatica, right side (principal); M51.26 Other intervertebral disc displacement, lumbar region; G89.29 Other chronic pain; Z98.1 Arthrodesis status
CPT/HCPCS: 72158; A9575

== ENCOUNTER 2021-03-16 15:42 | Emergency (ER) | payer MEDICAID, SELFPAY ==
[2021-03-16 15:43] VITALS: BP 131/101; PULSE 86; RESP 16; TEMP 35.6; O2SAT 99; BMI 42.8
[2021-03-16 16:11] VITALS: BP 124/74; PULSE 76; RESP 18; TEMP 36.8; O2SAT 97
[2021-03-16 16:31] VITALS: O2SAT 99
--- NOTE | 2021-03-16 16:31 | EX.ED.DYSGE1 ---
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 She denies any dyspnea. Patient has been vaccinated against Covid, she received 2 injections of moderna, it was almost 1 year ago she has not yet had a booster. [facility] Medical History Abrasion Alcohol use Anxiety Asthma Bipolar disorder Carpal tunnel syndrome Chipped tooth Chronic cough Chronic pain COPD (chronic obstructive pulmonary disease) Easy bruising Hepatitis Hepatitis C Herniated cervical disc History of edema History of heartburn History of herniated intervertebral disc History of IBS History of stress test Hx of degenerative disc disease Injury of back Leg cramps Lumbar radicular pain MARIA INES (obstructive sleep apnea) Peptic ulcer Polysubstance abuse Schizophrenia Shortness of breath on exertion Smoker Tobacco use (Unknown) Ulnar nerve laceration Wears glasses Home Medications albuterol sulfate [Ventolin HFA] 1 - 2 puff INHALATION Q4H PRN PRN #1 inhaler 07/21/15 [Rx Last Taken 10/13/17] [employer] 1 tab PO DAILY 10/16/17 [History Last Taken 10/15/17] fluoxetine [Prozac] 40 mg PO DAILY 11/10/20 [History Last Taken Unknown] acetaminophen 1,000 mg PO Q8H #0 tab 12/06/20 [Rx Last Taken Unknown] bupropion HCl 300 mg PO DAILY #30 tab 12/06/20 [Rx Last Taken Unknown] melatonin 10 mg tablet 30 mg PO HS PRN tab 01/09/21 [History Last Taken Unknown] ondansetron 8 mg PO Q8H PRN PRN #12 tab 03/16/21 [Rx Last Taken Unknown] Allergy/AdvReac Type Severity Reaction Status Date / Time hydrocodone Allergy Intermediate Hives Verified 03/16/21 15:42 Surgical History History of appendectomy History of back surgery History of cholecystectomy History of decompression of ulnar nerve History of tubal ligation Social History Smoking Status: Former smoker ROS ROS ED Constitutional Constitutional ED: Reports body ache(s), chills, fatigue, fever(s), headache(s) and malaise Eyes Eyes: Denies change in vision or diplopia ENT ENT ED: Reports loss taste/smell, nasal congestion and rhinorrhea; Denies sore throat Cardiovascular Cardiovascular: Denies chest pain or palpitations Respiratory/Chest Respiratory/Chest: Reports cough; Denies dyspnea or dyspnea on exertion Gastrointestinal Gastrointestinal: Reports diarrhea; Denies abdominal pain, nausea or vomiting Genitourinary Genitourinary ED: Denies dysuria or hematuria Musculoskeletal Musculoskeletal: Denies back pain or neck pain Integumentary Denies abscess or rash Neurologic Neurologic: Reports headache(s); Denies paresthesias or weakness Psychiatric Psychiatric: Denies anxiety or suicidal thoughts EXAM Physical Exam Const Vital Signs: 03/16/21 15:43 03/16/21 16:09 03/16/21 16:11 Temperature 96.1 F L 98.2 F Temperature Source Temporal Oral Pulse Rate 86 76 Respiratory Rate 16 18 Respiratory Effort Normal Respiratory Pattern Normal Blood Pressure 131/101 H 124/74 H Blood Pressure Mean 111 90 Pulse Ox 99 97 Oxygen Delivery Method Room Air Room Air 03/16/21 16:31 Temperature Temperature Source Pulse Rate Respiratory Rate Respiratory Effort Respiratory Pattern Blood Pressure Blood Pressure Mean Pulse Ox 99 Oxygen Delivery Method Positive well nourished and well developed Constitutional Narrative: Malaised-appearing, no distress General Appearance ED: well developed and NAD HEENT Reports moist mucous membranes normocephalic and atraumatic Eyes PERRL and EOMs intact bilaterally Neck full ROM and supple Resp normal respiratory effort and clear to auscultation bilaterally Cardio regular rate, regular rhythm and no murmurs Rate: Negative for tachycardic GI non-tender and non-distended Auscultation: normoactive bowel sounds Palpation: soft Back/Spine no CVA tenderness General Back: other FROM Extremity normal to inspection and no calf tenderness General Extremety ED: Negative for edema, pulses abnormal or tenderness General Extremity: Negative for edema or pulses abnormal Neuro oriented x3, CN's II-XII intact bilaterally and no sensory deficits noted Sensorium / Orientation: awake and alert Motor Exam: strength 5/5 throughout Skin no rashes or lesions noted and no wounds MDM MDM MDM Narrative Medical decision making narrative: Patient's rapid Covid antigen test is negative. However her pretest probability is extremely high and I suspect this is a false negative, so we sent a PCR and treat her symptoms here with Toradol and Reglan. Patient will be allowed to be discharged, and if her PCR returns positive, she will be referred for monoclonal antibody infusion therapy, which we discussed and gave her instructions for. Her main risk factor is obesity with a BMI of 43. Hours after the patient was discharged, her PCR returned negative. The patient has received notification of this negative test and we discussed supportive care measures. Lab Data Labs: Laboratory Results - last 24 hr 03/16/21 16:32 COVID-19 ([facility]) Not Detected Discharge Plan Triage Chief Complaint: General Illness ED Provider: Donovan Jackson Dx/Rx/DC Orders Clinical Impression: Acute viral syndrome Instructions: Coronavirus Disease 2019 (COVID-19): Caring for Yourself or Others, ED - COVID Monoclonal AB Infusion ... Prescriptions: New ondansetron [ondansetron] 4 MG tablet 8 mg PO Q8H PRN PRN (Reason: Nausea) Qty: 12 RF: 0 No Action melatonin 10 mg tablet 30 mg PO HS PRN (Reason: Insomnia) RF: 0 albuterol sulfate [Ventolin HFA] 1 INHALER inhaler 1 - 2 puff inhalation Q4H PRN PRN (Reason: Wheezing) Qty: 1 RF: 0 [employer] 1 EACH tablet 1 tab PO DAILY RF: 0 fluoxetine [Prozac] 40 mg Capsule 40 mg PO DAILY RF: 0 bupropion HCl 300 mg Tablet Extended Release 24 Hr 300 mg PO DAILY Qty: 30 RF: 0 acetaminophen 500 mg tablet 1,000 mg PO Q8H Qty: 0 RF: 0 Primary Care Provider: Sobeida Berger Referrals: Sobeida Berger MD [Primary Care Provider] - As Needed Activity Restrictions/Additional Instructions: Try to get a home portable pulse oximeter and closely watch your oxygen levels periodically. If you stay below 90% for more than a minute or so, and/or you are feeling like your breathing is getting worse, return to the emergency department for further evaluation. You are a candidate for monoclonal antibody infusion therapy, see the attached instructions for more information. They will call you concerning when they want you to come to the clinic to get the infusion which is a one-time dose to help protect you from getting more ill and becoming hospitalized with life-threatening illness due to Covid given your risk for worsening. Disposition Disposition: Home, Self Care Discharge Date/Time: 03/16/21 16:46
[2021-03-16] MEDS: Metoclopramide 10 MG/2 ML Vial 5 MG IM (16:40)
[2021-03-16] MEDS: Ketorolac 60 MG/2 ML Vial IM (16:40)
== END 2021-03-16 16:46 | disposition home or self-care (01) ==
PROVIDERS: Emergency Provider Emergency Medicine; PCP Internal Medicine
DX: B34.9 Viral infection, unspecified (principal); J44.9 Chronic obstructive pulmonary disease, unspecified; F20.9 Schizophrenia, unspecified; F31.9 Bipolar disorder, unspecified; F41.9 Anxiety disorder, unspecified; E66.9 Obesity, unspecified; Z68.41 Body mass index [BMI] 40.0-44.9, adult; Z79.899 Other long term (current) drug therapy; Z87.891 Personal history of nicotine dependence
CPT/HCPCS: 87426; 87635; 96372; 99282; U0005; U0003

== ENCOUNTER 2021-04-17 14:30 | Outpatient (CLI) | payer MEDICAID, SELFPAY ==
--- NOTE | 2021-04-17 15:31 | NEURO ---
NCS and/or EMG Patient Report Ordering Doctor: Vesna Elder DATE OF SERVICE: 04/17/21 Tracy presents for electrodiagnostic testing of the upper limbs. She reports numbness and tingling in both hands. Electrodiagnostic findings: Median motor nerve demonstrates prolonged distal latency bilaterally with normal amplitude and reduced conduction velocity. Normal ulnar motor response bilaterally. Prolonged median sensory latency at the wrist bilaterally. Normal ulnar and radial sensory responses. On needle EMG, all muscles tested in the upper limbs showed no evidence of denervation with normal motor unit action potentials. Electrodiagnostic impression: This is an abnormal study in the upper limbs 1. Electrodiagnostic findings demonstrate bilateral median mononeuropathy. This is consistent with a mild to moderate right carpal tunnel syndrome and a moderate left carpal tunnel syndrome. 2. No electrodiagnostic evidence is noted for cervical radiculopathy.
== END 2021-04-17 23:59 | disposition short-term general hospital (02) ==
LOC: PSN 14:32
PROVIDERS: PCP Internal Medicine; Referring Provider Physician Assistant Surgical; Visit Provider Physician Assistant Surgical
DX: G56.03 Carpal tunnel syndrome, bilateral upper limbs (principal)
CPT/HCPCS: 95886; 95913

== ENCOUNTER 2021-05-11 14:16 | Emergency (ER) | payer MEDICAID, SELFPAY ==
[2021-05-11 14:17] VITALS: BP 147/99; PULSE 72; RESP 16; TEMP 36.5; O2SAT 99; BMI 42.8
--- NOTE | 2021-05-11 14:41 | EDS_ITS ---
HPI <MELYSSA PARK - Last Filed: 05/11/21 22:31> History of Present Illness Chief Complaint: Back Detail of Chief Complaint: lower back pain, really bad today Informant: patient Onset/Context/Timing Onset: - Injury: - Timing: Continuous Quality: Sharp, Aching and Burning Location: Lumbar (with radiation to rt hip and rt lateral leg) Current Severity: 9/10 Worsened by: improves with Ambulation and - Relieved by: - (slight relief with rt leg abduction) Associated Symptoms Associated Symptoms: Numbness, Tingling and Radiation to Right Leg; Negative for Fever, Unable to Ambulate, Urinary Retention and Urinary Incontinence Narrative Narrative: Patient presents with lower back pain. Patient has history of a lumbar laminectomy in [place] [address] Avery. Patient has been having increasing back pain since February. Patient saw Dr. Avery in February, at which time an MRI was performed. Follow-up was as needed. Over the past month the patient has noticed a steady increase in pain with today being severe. Patient took meloxicam and medrol dose pack at 1030/1100 today, which is prescribed for her carpal tunnel pain, but provided no relief. Patient denies any injury or bowel or bladder incontinence. Prior similar symptoms: With Prior Back Pain Recent Illness/Hospitalization: No PFSH <MELYSSA PARK - Last Filed: 05/11/21 22:31> [facility] Medical History (Updated 05/11/21 @ 15:[address] Samantha Meyer MD) Alcohol use Anxiety Asthma Bipolar disorder Carpal tunnel syndrome Chronic cough Chronic pain COPD (chronic obstructive pulmonary disease) Easy bruising Hepatitis Hepatitis C Herniated cervical disc History of herniated intervertebral disc History of IBS History of stress test Hx of degenerative disc disease Injury of back Leg cramps Lumbar radicular pain MARIA INES (obstructive sleep apnea) Peptic ulcer Polysubstance abuse Schizophrenia Shortness of breath on exertion Smoker Tobacco use (Unknown) Ulnar nerve laceration Wears glasses Home Medications albuterol sulfate [Ventolin HFA] 1 - 2 puff INHALATION Q4H PRN PRN #1 inhaler 07/21/15 [Rx Last Taken 10/13/17] [employer] 1 tab PO DAILY 10/16/17 [History Last Taken 10/15/17] fluoxetine [Prozac] 40 mg PO DAILY 11/10/20 [History Last Taken Unknown] acetaminophen 1,000 mg PO Q8H #0 tab 12/06/20 [Rx Last Taken Unknown] bupropion HCl 300 mg PO DAILY #30 tab 12/06/20 [Rx Last Taken Unknown] melatonin 10 mg tablet 30 mg PO HS PRN tab 01/09/21 [History Last Taken Unknown] ondansetron 8 mg PO Q8H PRN PRN #12 tab 03/16/21 [Rx Last Taken Unknown] cyclobenzaprine 10 mg PO BID PRN #10 tab 05/11/21 [Rx Last Taken Unknown] meloxicam 7.5 mg PO DAILY 05/11/21 [History Last Taken Unknown] oxycodone-acetaminophen [Percocet] 1 tab PO Q6H PRN 4 Days #14 tab 05/11/21 [Rx Last Taken Unknown] prednisone 05/11/21 [History Last Taken Unknown] Allergy/AdvReac Type Severity Reaction Status Date / Time hydrocodone Allergy Intermediate Hives Verified 05/11/21 14:16 Surgical History (Updated 05/11/21 @ 14:52 by MELYSSA PARK) History of appendectomy History of back surgery History of cholecystectomy History of decompression of ulnar nerve History of lumbar laminectomy History of tubal ligation Social History (Updated 05/11/21 @ 14:52 by MELYSSA PARK) Smoking Status: Former smoker substance use type: does not use <Dr. Samantha Meyer MD - Last Filed: 05/11/21 22:56> ROS ED Constitutional Constitutional ED: Denies chills or fever(s) Eyes Eyes: Denies change in vision ENT ENT ED: Denies sore throat Cardiovascular Cardiovascular: Denies chest pain Respiratory/Chest Respiratory/Chest: Denies cough or dyspnea Gastrointestinal Gastrointestinal: Denies abdominal pain, diarrhea, nausea or vomiting Genitourinary Genitourinary ED: Denies dysuria Musculoskeletal Musculoskeletal: Reports arthralgias and back pain Integumentary Denies rash Neurologic Neurologic: Denies headache(s) or paresthesias Psychiatric Psychiatric: Denies anxiety or depression Allergic/Immunologic Allergic/Immunologic ED: Denies urticaria EXAM <MELYSSA PARK - Last Filed: 05/11/21 22:31> Physical Exam Const Vital Signs: 05/11/21 14:17 Temperature 97.7 F L Temperature Source Oral Pulse Rate 72 Respiratory Rate 16 Blood Pressure 147/99 H Blood Pressure Mean 115 Pulse Ox 99 Oxygen Delivery Method Room Air <Dr. Samantha Meyer MD - Last Filed: 05/11/21 22:56> Physical Exam Const Vital Signs: 05/11/21 14:17 Temperature 97.7 F L Temperature Source Oral Pulse Rate 72 Respiratory Rate 16 Blood Pressure 147/99 H Blood Pressure Mean 115 Pulse Ox 99 Oxygen Delivery Method Room Air Positive well nourished and well developed General Appearance ED: well developed HEENT Reports moist mucous membranes Eyes PERRL and EOMs intact bilaterally Neck supple Resp normal respiratory effort and clear to auscultation bilaterally Cardio regular rate and regular rhythm GI normal to inspection, nondistended, normoactive bowel sounds, soft to palpation and non-tender Back/Spine Back/Spine Narrative: Reproducible tenderness in the low lumbar spine and paraspinals. No overlying erythema. Surgical scar noted and well-healed. Extremity normal to inspection Neuro Neuro Narrative: Normal strength and sensation noted in the lower extremities. Negative straight leg raise. Strong distal pulses. Psych mental status grossly normal Skin no rashes or lesions noted [facility] <MELYSSA PARK - Last Filed: 05/11/21 22:31> [facility] Narrative Medical decision making narrative: Patient given oxycodone and cyclobenzaprine for pain. Treatment and Re-Evaluation Comments:: On re-evaluation, patient reports improvement in pain, to 7/10. Patient agreeable to discharge with prescription for percocet and cyclobenzaprine. I reviewed this patient's [facility] report with Dr. Meyer and last narcotic prescription was February 2021. Patient will follow up with Dr. Avery. Return instructions provided. <Dr. Samantha Meyer MD - Last Filed: 05/11/21 22:56> [facility] Treatment and Re-Evaluation Comments:: Patient seen and evaluated with [employer] student. Patient independently interviewed and examined. I was involved in all aspects of testing, treatment, and evaluation. Patient presents with increasing low back pain. Prior laminectomy in 2020. No new injury. Occasional pain radiating down right leg. No problems with bowel or bladder control. Patient lying in bed. She is uncomfortable but in no distress. Head and neck examination unremarkable. Heart is regular rate and rhythm. Lung sounds are clear. Abdomen is soft and nontender. Back examination was reproducible tenderness in the lumbar paraspinal muscles. Neuro exam reveals no focal deficits. Strong distal pulses. Patient is already on Mobic and steroids. She is given Flexeril and oxycodone here. On repeat evaluation she does have some improvement. OAR[facility] report was obtained and last prescription was from early February. Patient be given a short course of Percocet and will follow up with her spine surgeon, Dr. Avery. Discharge Plan Triage Chief Complaint: Back ED Provider: Samantha Meyer Dx/Rx/DC Orders Clinical Impression: Back pain Instructions: ED Back Pain (Acute or Chronic) Prescriptions: New oxycodone-acetaminophen [Percocet] 5-325 mg tablet 1 tab PO Q6H PRN (Reason: pain) 4 Days Qty: 14 RF: 0 cyclobenzaprine 10 mg tablet 10 mg PO BID PRN (Reason: muscle spasm) Qty: 10 RF: 0 No Action melatonin 10 mg tablet 30 mg PO HS PRN (Reason: Insomnia) RF: 0 albuterol sulfate [Ventolin HFA] 1 INHALER inhaler 1 - 2 puff inhalation Q4H PRN PRN (Reason: Wheezing) Qty: 1 RF: 0 [employer] 1 EACH tablet 1 tab PO DAILY RF: 0 fluoxetine [Prozac] 40 mg Capsule 40 mg PO DAILY RF: 0 bupropion HCl 300 mg Tablet Extended Release 24 Hr 300 mg PO DAILY Qty: 30 RF: 0 acetaminophen 500 mg tablet 1,000 mg PO Q8H Qty: 0 RF: 0 ondansetron [ondansetron] 4 MG tablet 8 mg PO Q8H PRN PRN (Reason: Nausea) Qty: 12 RF: 0 meloxicam 7.5 mg Tablet 7.5 mg PO DAILY RF: 0 prednisone 5 mg Tablets,Dose Pack RF: 0 Primary Care Provider: Sobeida Berger Referrals: Sobeida Berger MD [Primary Care Provider] - Gael Avery DO [STAFF PHYSICIAN] - 1 Week Disposition Disposition: Home, Self Care Discharge Date/Time: 05/11/21 15:31
[2021-05-11] MEDS: oxyCODONE 5 MG Tablet PO (14:42)
[2021-05-11] MEDS: cycloBENZAPRine HCl 10 MG Tablet PO (14:42)
== END 2021-05-11 15:31 | disposition home or self-care (01) ==
PROVIDERS: Emergency Provider Emergency Medicine; PCP Internal Medicine; Visit Provider Emergency Medicine
DX: M54.50 Low back pain, unspecified (principal); J44.9 Chronic obstructive pulmonary disease, unspecified; F31.9 Bipolar disorder, unspecified; F41.9 Anxiety disorder, unspecified; Z98.1 Arthrodesis status; Z79.899 Other long term (current) drug therapy; Z87.891 Personal history of nicotine dependence
CPT/HCPCS: 99283

== ENCOUNTER 2021-05-30 08:28 | Day surgery (SDC) | payer MEDICAID, SELFPAY ==
[2021-05-30] VITALS (8 sets, daily range): BP systolic 117–158; BP diastolic 56–84; PULSE 73–90; RESP 16; TEMP 36.3–36.9; O2SAT 95–100; BMI 43.3
[2021-05-30] MEDS: Lactated Ringers 1,000 ML 15 ML IV (09:01)
[2021-05-30] MEDS: Cefazolin 2 GM in 0.9% Normal Saline 100 ML IV (10:57)
[2021-05-30] MEDS: Bupivacaine Mpf 0.5% 30 ML VIAL (11:27)
--- NOTE | 2021-05-30 11:47 | PCM.DC ---
Discharge Instructions Follow Up Care Test Results: Test results from this visit will be discussed in further detail at your follow-up appointment, if applicable. Discharge Plan Admission Primary Reason for Your Visit: Carpal tunnel release Attending Provider: Bryce Roblero Primary Care Provider: Sobeida Berger Instructions Additional Instructions / Restrictions: Follow preprinted instructions from your surgeon's office Discharge Orders/Prescriptions Prescriptions: No Action melatonin 10 mg tablet 30 mg PO HS PRN (Reason: Insomnia) RF: 0 albuterol sulfate [Ventolin HFA] 1 INHALER inhaler 1 - 2 puff inhalation Q4H PRN PRN (Reason: Wheezing) Qty: 1 RF: 0 [employer] 1 EACH tablet 1 tab PO DAILY RF: 0 acetaminophen 500 mg tablet 1,000 mg PO Q8H Qty: 0 RF: 0 ondansetron [ondansetron] 4 MG tablet 8 mg PO Q8H PRN PRN (Reason: Nausea) Qty: 12 RF: 0 meloxicam 7.5 mg Tablet 7.5 mg PO DAILY PRN (Reason: Pain) RF: 0 oxycodone-acetaminophen [Percocet] 5-325 mg tablet 1 tab PO Q6H PRN (Reason: pain) 4 Days Qty: 14 RF: 0 Referrals / Follow Up: Sobeida Berger MD [Primary Care Provider] - Bryce Roblero DO [STAFF PHYSICIAN] - Within 2 Weeks Disposition Disposition (needs filled in before D/C Order can be placed): Home, Self Care
--- NOTE | 2021-05-30 11:59 | OP.PCM_ITS ---
Report of Operation Date of Procedure: 05/30/21 Description of Surgical Findings:: Preoperative diagnosis: Bilateral carpal Tunnel Syndrome Postoperative diagnosis: Bilateral carpal Tunnel Syndrome Procedure: Bilateral endoscopic Carpal Tunnel Release Surgeon: Bryce Roblero DO Anesthesia: General with LMA Pest Control Chemical Technician: Lele Braswell CRNA Complications: None apparent Drains: None Estimated blood loss: 2 cc Urinary output: None measured IV fluids: Per anesthesia record Specimens: None Surgical implants: None Surgical indications: This is a 45-year-old female seen in the outpatient setting diagnosed with bilateral carpal tunnel syndrome. The patient failed nonoperative management in the form of bracing, anti-inflammatory medications, activity modification. Operative intervention in form of endoscopic possible open carpal tunnel release was offered to bilateral hands. The risks, benefits, alternatives to procedure were reviewed with patient at length in the outpatient setting and he agreed to proceed. Risks included but were not limited to bleeding, infection, loss of life or limb, risk of anesthesia, incomplete release, neurovascular injury, persistent pain, need for additional surgery, stiffness, loss of hand function. Patient expressed understanding wish to proceed with surgery. Informed consent obtained in the office. Description of procedure: Patient was seen in preoperative holding area. Patient was identified by name, medical record number, date of . The operative extremities were marked with a surgical marker. We confirmed informed consent with the patient and all questions were answered to the patient's satisfaction. At time of her procedure, patient was brought to the operative suite and positioned supine a standard operating table. All bony prominences were well- padded. General anesthesia was induced and endotracheal tube placed. Bilateral upper extremities were then prepped for surgery by first applying a well-padded pneumatic tourniquet to the upper arms. We spun the bed approximately 45 degrees. 2 g Ancef was administered prior to incision by anesthesia staff. We performed a timeout at this point confirming side, site, and operation to be performed. No concerns voiced and elected to proceed. I began surgery on the right side, as this was the more symptomatic side. I first marked a transverse incision on the ulnar aspect of the palmaris longus tendon in the proximal wrist crease approximately 1-1/2 cm in length. Skin was sharply incised with 15 blade scalpel. Superficial veins were cauterized with bipolar cautery. The fatty layer was dissected through bluntly until the antebrachial fascia was encountered. The antebrachial fascia were split in line with the fibers as well as the incision with the Littler scissors. I then placed a skin hook around the antebrachial fascia distally. I open the proximal 1 cm longitudinally of the antebrachial fascia. I then sequentially dilated within the carpal tunnel utilizing Arthrex supplied dilators. I then utilized there synovial elevator to debride the undersurface of the transverse carpal ligament free from synovium. I then removed the elevator and inserted the centerline endoscopic carpal tunnel release system. The transverse carpal ligament was well visualized and free from underlying synovium. I identified its distal aspect by blotting the skin and perivascular fat was visualized. I then carefully deployed the scalpel from the sheath and, in retrograde fashion, sequentially released the transverse carpal ligament longitudinally. No aberrancies of the median nerve were apparent. Complete release was confirmed with Littler scissors acting as a probe. The tourniquet was then deflated. Hemostasis was excellent. A field block was administered with 10 cc 0.5% plain Marcaine. Skin was closed with interrupted horizontal mattress sutures of 4-0 nylon suture. Sterile compression dressing was then applied. I then turned my attention to the left side. marked a transverse incision on the ulnar aspect of the palmaris longus tendon in the proximal wrist crease approximately 1-1/2 cm in length. Skin was sharply incised with 15 blade scalpel. Superficial veins were cauterized with bipolar cautery. The fatty layer was dissected through bluntly until the antebrachial fascia was encountered. The antebrachial fascia were split in line with the fibers as well as the incision with the Littler scissors. I then placed a skin hook around the antebrachial fascia distally. I open the proximal 1 cm longitudinally of the antebrachial fascia. I then sequentially dilated within the carpal tunnel utilizing Arthrex supplied dilators. I then utilized there synovial elevator to debride the undersurface of the transverse carpal ligament free from synovium. I then removed the elevator and inserted the centerline endoscopic carpal tunnel release system. The transverse carpal ligament was well visualized and free from underlying synovium. I identified its distal aspect by blotting the skin and perivascular fat was visualized. I then carefully deployed the scalpel from the sheath and, in retrograde fashion, sequentially released the transverse carpal ligament longitudinally. No aberrancies of the median nerve were apparent. Complete release was confirmed with Littler scissors acting as a probe. The tourniquet was then deflated. Hemostasis was excellent. A field block was administered with 10 cc 0.5% plain Marcaine. Skin was closed with interrupted horizontal mattress sutures of 4-0 nylon suture. Sterile compression dressing was then applied. Patient tolerated procedure well without apparent complication.she was safely ex tubated in the operative suite. She was transferred to PACU in stable condition. Intraoperative medications: Post Operative Plan: Weightbearing: Weightbearing as tolerated bilateral upper extremities Antibiotics: Ancef 2 g x 1 dose preoperatively DVT Prophylaxis: None indicated Ghotra: None Dressing: Okay to remove on postoperative day #2, shower. X-Rays: None Pain Medication: Provided in the office Follow-up: 2 weeks post-operatively with me in the office
== END 2021-05-30 23:59 | disposition home or self-care (01) ==
LOC: SDC 08:30 → AC 08:31
PROVIDERS: PCP Internal Medicine; Referring Provider Student in an Organized Health Care Education/Training Program; Visit Provider Student in an Organized Health Care Education/Training Program
PROC: (CPT 29848; principal; 2021-05-30 09:35)
DX: G56.03 Carpal tunnel syndrome, bilateral upper limbs (principal); F20.9 Schizophrenia, unspecified; J44.9 Chronic obstructive pulmonary disease, unspecified; F31.9 Bipolar disorder, unspecified; E66.8 Other obesity; F41.9 Anxiety disorder, unspecified; F17.290 Nicotine dependence, other tobacco product, uncomplicated; Z71.3 Dietary counseling and surveillance; Z68.31 Body mass index [BMI] 31.0-31.9, adult; Z79.899 Other long term (current) drug therapy
CPT/HCPCS: 29848; 87426; C9803; J7120; J2405

== ENCOUNTER 2021-07-05 08:35 | Emergency (ER) | payer MEDICAID, SELFPAY ==
[2021-07-05 08:39] VITALS: BP 135/75; PULSE 75; RESP 17; TEMP 36.8; O2SAT 96; BMI 44.1
[2021-07-05 08:45] VITALS: BP 135/75; PULSE 72; RESP 17; TEMP 36.8; O2SAT 96
--- NOTE | 2021-07-05 09:26 | EDS_ITS ---
HPI History of Present Illness Chief Complaint: Cough Informant: patient Narrative Narrative: 46-year-old female presenting to the emergency room with vomiting diarrhea and cough. Patient states that a friend of hers developed diarrhea and fever 2 nights ago. Yesterday morning she woke with cough runny nose and hoarse voice. She then progressively developed diarrhea. She notes continued nausea. She is a smoker but states she has not smoked much recently. She does note a history of bronchitis [facility] Medical History Alcohol use Anxiety Asthma Bipolar disorder Carpal tunnel syndrome Chronic cough Chronic pain COPD (chronic obstructive pulmonary disease) Easy bruising Hepatitis Hepatitis C Herniated cervical disc History of herniated intervertebral disc History of IBS History of stress test Hx of degenerative disc disease Injury of back Leg cramps Lumbar radicular pain MARIA INES (obstructive sleep apnea) Peptic ulcer Polysubstance abuse Schizophrenia Shortness of breath on exertion Smoker Tobacco use (Unknown) Ulnar nerve laceration Wears glasses Home Medications albuterol sulfate [Ventolin HFA] 1 - 2 puff INHALATION Q4H PRN PRN #1 inhaler 07/21/15 [Rx Last Taken 10/13/17] [employer] 1 tab PO DAILY 10/16/17 [History Last Taken 10/15/17] acetaminophen 1,000 mg PO Q8H PRN 07/05/21 [History Last Taken Unknown] albuterol sulfate [Ventolin HFA] 2 puff INHALATION Q4H PRN PRN #1 inhaler 07/05/21 [Rx Last Taken Unknown] dexamethasone 6 mg PO DAILY #7 tab 07/05/21 [Rx Last Taken Unknown] trazodone 50 mg PO QHS 07/05/21 [History Last Taken Unknown] Allergy/AdvReac Type Severity Reaction Status Date / Time hydrocodone Allergy Intermediate Hives Verified 07/05/21 08:36 Surgical History History of appendectomy History of back surgery History of back surgery History of cholecystectomy History of decompression of ulnar nerve History of lumbar laminectomy History of tubal ligation Social History Smoking Status: Current every day smoker tobacco type: cigarettes substance use type: does not use ROS ROS ED Constitutional Constitutional ED: Denies chills or weight loss Eyes Eyes: Denies change in vision or diplopia ENT ENT ED: Reports rhinorrhea and sore throat; Denies ear pain Cardiovascular Cardiovascular: Denies chest pain, orthopnea, palpitations or racing heartbeat Respiratory/Chest Respiratory/Chest: Reports cough and dyspnea; Denies orthopnea Gastrointestinal Gastrointestinal: Reports diarrhea, nausea and vomiting; Denies abdominal pain Genitourinary Genitourinary ED: Denies dysuria, hematuria or urinary frequency Musculoskeletal Musculoskeletal: Denies arthralgias or myalgias Integumentary Denies abscess or rash Neurologic Neurologic: Denies headache(s) or weakness Psychiatric Psychiatric: Denies anxiety, depression, suicidal ideation or suicidal thoughts Endocrine Endocrinology: Denies polydipsia, polyphagia or polyuria Allergic/Immunologic Allergic/Immunologic ED: Denies mouth swelling, tongue swelling or urticaria EXAM Physical Exam Const Vital Signs: 07/05/21 08:39 07/05/21 08:45 07/05/21 09:31 Temperature 98.2 F 98.2 F Temperature Source Temporal Oral Pulse Rate 75 72 97 Respiratory Rate 17 17 20 H Respiratory Effort Normal Non-Labored Respiratory Depth Normal Respiratory Pattern Normal Blood Pressure 135/75 H 135/75 H Blood Pressure Mean 95 95 Pulse Ox 96 96 99 Oxygen Delivery Method Room Air Room Air Room Air Positive well nourished and well developed General Appearance ED: well developed HEENT Reports normocephalic, head/scalp atraumatic and moist mucous membranes HEENT Narrative: No oropharyngeal erythema or swelling noted. Rhinorrhea noted Eyes PERRL and EOMs intact bilaterally Neck no lymphadenopathy, supple and no JVD Resp normal respiratory effort Auscultation: wheezes expiratory wheezes Cardio regular rate, regular rhythm and no murmurs GI normal to inspection, nondistended, normoactive bowel sounds and non-tender Palpation: soft Back/Spine no CVA tenderness and normal ROM Extremity normal to inspection General Extremety ED: Negative for edema General Extremity: Negative for edema Neuro oriented x3 and CN's II-XII intact bilaterally Sensorium / Orientation: alert Motor Exam: strength 5/5 throughout Psych mental status grossly normal Mood & Affect: Negative for depressed or tearful Skin no rashes or lesions noted and no wounds MDM MDM MDM Narrative Medical decision making narrative: Mitral rotation the chest x-ray is no acute process. Patient received IV fluids and Zofran as well as Toradol. Her COVID test returned positive. She is vaccinated. At this point patient clinically appears well. I did give her a DuoNeb and will write for a trial of an albuterol MDI. She is to quarantine return if worsening or concerns Discharge Plan Triage Chief Complaint: Cough ED Provider: David Espinoza Dx/Rx/DC Orders Clinical Impression: COVID-19, Vomiting and diarrhea Instructions: Coronavirus Disease 2019 (COVID-19): Caring for Yourself or Others Prescriptions: New dexamethasone 6 MG tablet 6 mg PO DAILY Qty: 7 RF: 0 albuterol sulfate [Ventolin HFA] 1 INHALER inhaler 2 puff inhalation Q4H PRN PRN (Reason: Wheezing) Qty: 1 RF: 0 No Action albuterol sulfate [Ventolin HFA] 1 INHALER inhaler 1 - 2 puff inhalation Q4H PRN PRN (Reason: Wheezing) Qty: 1 RF: 0 [employer] 1 EACH tablet 1 tab PO DAILY RF: 0 trazodone 50 mg Tablet 50 mg PO QHS RF: 0 acetaminophen 500 mg tablet 1,000 mg PO Q8H PRN (Reason: Pain) RF: 0 Primary Care Provider: Sobeida Berger Referrals: Sobeida Berger MD [Primary Care Provider] - As Needed Disposition Disposition: Home, Self Care
[2021-07-05] MEDS: Ipratropium/Albuterol Sulfate 3 ML AMPUL.NEB INHALATION (09:27)
[2021-07-05 09:31] VITALS: PULSE 97; RESP 20; O2SAT 99
[2021-07-05] MEDS: 0.9% Normal Saline 1,000 ML 1000 ML IV (09:50)
[2021-07-05] MEDS: Ketorolac 30 MG/ML Syringe IV (09:53)
[2021-07-05] MEDS: Ondansetron 4 MG/2 ML Vial IV (09:53)
--- NOTE | 2021-07-05 10:00 | RAD_ITS ---
STUDY: X-RAY CHEST REASON FOR EXAM: Female, 46 years old. Cough TECHNIQUE: Single AP portable view of the chest. COMPARISON: Comparison is made with prior study 11/10/2020. FINDINGS: The lungs are clear and expanded. There is no demonstrated pleural abnormality. Normal size heart. Normal mediastinum and violetta. Normal visualized pulmonary arteries. Normal visualized aortic arch and descending thoracic aorta. Normal visualized thoracic spine. Normal visualized ribs, clavicles, and shoulders. There is no demonstrated abnormality of the visualized soft tissue structures of the upper abdomen. RAD/Chest 1 View (Portable) IMPRESSION: Normal x-ray examination of the chest. Electronically Signed: Dmitri Ramesh MD at 10:26 EDT ,
== END 2021-07-05 10:33 | disposition home or self-care (01) ==
PROVIDERS: Emergency Provider Emergency Medicine; PCP Internal Medicine; Visit Provider Emergency Medicine
DX: U07.1 COVID-19 (principal); J44.9 Chronic obstructive pulmonary disease, unspecified; F17.210 Nicotine dependence, cigarettes, uncomplicated
CPT/HCPCS: 71045; 87428; 94640; 96361; 96374; 96375; 99284; J7030; A4216; J2405

== ENCOUNTER 2021-07-09 15:44 | Emergency (ER) | payer MEDICAID, SELFPAY ==
[2021-07-09 15:45] VITALS: BP 161/94; PULSE 91; RESP 19; TEMP 35.8; O2SAT 97; BMI 43.7
--- NOTE | 2021-07-09 16:14 | ED.VIS.BACK ---
HPI History of Present Illness Chief Complaint: Back Informant: patient Onset/Context/Timing Onset: Days (4) Context: Gradual Onset Injury: lifting Timing: Continuous Quality: Aching Location: Lumbar Current Severity: Severe Maximum Severity: Severe Worsened by: improves with Movement and Bending Relieved by: Remaining Still and Medications (nsaids partially) Associated Symptoms Associated Symptoms: Tingling (down RLE all the way); Negative for Fever, Abdominal Pain, Dysuria, Unable to Ambulate, Unable to Transfer, Urinary Retention, Urinary Incontinence, Constipation and Fecal Incontinence Narrative Narrative: Patient states she had back surgery last year and has been having waxing and waning chronic pain ever since although she was having chronic pain prior to this. She has conferred with her surgeon Dr. Avery and had some x-rays 1 or 2 months ago that looked okay and is scheduled to follow-up there. This past week for the past 5 days or so, she started having cough, myalgias, fevers, headaches and was diagnosed here with COVID after a positive swab. That same day, she helped someone out of a bathtub while she was bending over and felt a twinge in her low back, but no severe pains at that time, although as the last 3 or 4 days have gone on her back has been hurting more and more. She has been using Tylenol and Aleve, then she switched from Aleve to ibuprofen, it helps some but is not taking the pain away. It is radiating down the right lower extremity with tingling that is new. No bowel or bladder dysfunction. Prior similar symptoms: Yes and With Prior Back Pain [facility] Medical History Alcohol use Anxiety Asthma Bipolar disorder Carpal tunnel syndrome Chronic cough Chronic pain COPD (chronic obstructive pulmonary disease) Easy bruising Hepatitis Hepatitis C Herniated cervical disc History of herniated intervertebral disc History of IBS History of stress test Hx of degenerative disc disease Injury of back Leg cramps Lumbar radicular pain MARIA INES (obstructive sleep apnea) Peptic ulcer Polysubstance abuse Schizophrenia Shortness of breath on exertion Smoker Tobacco use (Unknown) Ulnar nerve laceration Wears glasses Home Medications albuterol sulfate [Ventolin HFA] 1 - 2 puff INHALATION Q4H PRN PRN #1 inhaler 07/21/15 [Rx Last Taken 10/13/17] [employer] 1 tab PO DAILY 10/16/17 [History Last Taken 10/15/17] acetaminophen 1,000 mg PO Q8H PRN 07/05/21 [History Last Taken Unknown] albuterol sulfate [Ventolin HFA] 2 puff INHALATION Q4H PRN PRN #1 inhaler 07/05/21 [Rx Last Taken Unknown] dexamethasone 6 mg PO DAILY #7 tab 07/05/21 [Rx Last Taken Unknown] trazodone 50 mg PO QHS 07/05/21 [History Last Taken Unknown] oxycodone-acetaminophen 1 tab PO Q6H PRN PRN 2 Days #8 tablet 07/09/21 [Rx Last Taken Unknown] Allergy/AdvReac Type Severity Reaction Status Date / Time hydrocodone Allergy Intermediate Hives Verified 07/09/21 15:45 Surgical History History of appendectomy History of back surgery History of back surgery History of cholecystectomy History of decompression of ulnar nerve History of lumbar laminectomy History of tubal ligation Social History Smoking Status: Current every day smoker tobacco type: cigarettes substance use type: does not use ROS ROS ED Constitutional Constitutional ED: Denies chills or fever(s) Eyes Eyes: Denies change in vision or diplopia ENT ENT ED: Denies rhinorrhea or sore throat Cardiovascular Cardiovascular: Denies chest pain or palpitations Respiratory/Chest Respiratory/Chest: Reports cough Gastrointestinal Gastrointestinal: Denies abdominal pain, constipation, fecal incontinence, nausea or vomiting Genitourinary Genitourinary ED: Reports other Details: no urinary retention ; Denies abdominal discomfort or urinary incontinence Musculoskeletal Musculoskeletal: Reports as per HPI and back pain; Denies neck pain Integumentary Denies rash or wounds Neurologic Neurologic: Reports headache(s) and paresthesias RLE; Denies weakness Psychiatric Psychiatric: Denies anxiety or suicidal thoughts EXAM Physical Exam Const Vital Signs: 07/09/21 15:45 Temperature 96.4 F L Temperature Source Temporal Pulse Rate 91 Respiratory Rate 19 H Blood Pressure 161/94 H Blood Pressure Mean 116 Pulse Ox 97 Oxygen Delivery Method Room Air Positive well nourished and well developed Constitutional Narrative: Malaised-appearing, no distress General Appearance ED: well developed and NAD HEENT Reports moist mucous membranes Negative for trauma or tenderness Eyes PERRL and EOMs intact bilaterally Neck full ROM and supple GI normal to inspection, nondistended, normoactive bowel sounds, soft to palpation and non-tender Auscultation: normoactive bowel sounds Palpation: soft Back/Spine normal to inspection Back/Spine Narrative: Well-healed surgical scar lumbosacral. Tender across bilateral paraspinal lumbosacral back including the midline. No step-off. No signs of infection. Able to walk without apparent difficulty, but she hunches over a little. General Back: scar(s) and other FROM ; Negative for CVA tenderness or Cruz-Gold sign Lumbar Spine / Lower Back: normal to inspection, lumbar ROM normal, pain with ROM and straight leg raise negative bilaterally Extremity normal to inspection, full ROM and no pedal edema General Extremety ED: Negative for edema, pulses abnormal or tenderness General Extremity: Negative for edema or pulses abnormal Neuro oriented x3 and no sensory deficits noted Sensorium / Orientation: alert Motor Exam: strength 5/5 throughout and clonus absent Deep Tendon Reflexes: Rt Patellar (L4): 1+, Lt Patellar (L4): 2+, Rt Ankle (S1): 2+ and Lt Ankle (S1): 2+ Deep Tendon Reflexes Back: Rt Patellar (L4): 1+, Lt Patellar (L4): 2+, Rt Ankle (S1): 2+ and Lt Ankle (S1): 2+ Plantar Reflex: Downgoing: bilateral Psych mental status grossly normal and thought process normal Skin no rashes or lesions noted and no wounds MDM MDM MDM Narrative Medical decision making narrative: Three-view x-ray series of the lumbosacral spine negative for any acute on my interpretation, radiology in agreement. Patient was treated here with a half dose of Toradol since she has been taking ibuprofen earlier today, as well as Norflex and a dose of morphine all of which helped her pain. She will be prescribed something temporary for pain, I suspect this is a strain due to the lifting she was doing, and oftentimes COVID myalgias focus in the low back, exacerbating her chronic pain. I did the x-rays since she had sciatica symptoms and she had prior surgery. Advised to follow-up with her surgeon, she has no signs or symptoms of cauda equina syndrome and we discussed reasons to return. She is requesting Percocet for pain. States tramadol does not work and she is allergic to hydrocodone. I checked an [facility] report. She has had a lot of prescriptions for oxycodone. None of them are current, so given her acute episode prescribed 8 pills. Radiography Diagnostic Testing: Clinical Impression(s) from Imaging Studies Lumbar Spine X-Ray 07/09/21 16:40 IMPRESSION: Intact lumbosacral spine. Electronically Signed: Lloyd Lyons MD at 17:00 EDT , Discharge Plan Triage Chief Complaint: Back ED Provider: Donovan Jackson Dx/Rx/DC Orders Clinical Impression: Acute lumbosacral myofascial strain, COVID-19, Acute low back pain with right-sided sciatica Instructions: ED Back Pain (Acute or Chronic) Prescriptions: New oxycodone-acetaminophen [oxycodone-acetaminophen] 1 TABLET tablet 1 tab PO Q6H PRN PRN (Reason: Pain) 2 Days Qty: 8 RF: 0 No Action albuterol sulfate [Ventolin HFA] 1 INHALER inhaler 1 - 2 puff inhalation Q4H PRN PRN (Reason: Wheezing) Qty: 1 RF: 0 [employer] 1 EACH tablet 1 tab PO DAILY RF: 0 trazodone 50 mg Tablet 50 mg PO QHS RF: 0 acetaminophen 500 mg tablet 1,000 mg PO Q8H PRN (Reason: Pain) RF: 0 dexamethasone 6 MG tablet 6 mg PO DAILY Qty: 7 RF: 0 albuterol sulfate [Ventolin HFA] 1 INHALER inhaler 2 puff inhalation Q4H PRN PRN (Reason: Wheezing) Qty: 1 RF: 0 Primary Care Provider: Sobeida Berger Referrals: Sobeida Berger MD [Primary Care Provider] - Gael Avery DO [STAFF PHYSICIAN] - 5-7 Days Disposition Disposition: Home, Self Care
[2021-07-09] MEDS: Orphenadrine 60 MG/2 ML Ampul IM (16:22)
[2021-07-09] MEDS: Morphine 4 MG/ML Syringe IM (16:22)
[2021-07-09] MEDS: Ketorolac 30 MG/ML Syringe IM (16:22)
--- NOTE | 2021-07-09 16:40 | RAD_ITS ---
EXAM: XR LUMBOSACRAL SPINE, 2 OR 3 VIEWS CLINICAL INDICATION: pain/injury -- PORTABLE TECHNIQUE: Frontal and lateral views of the lumbar spine and sacrum. This report was created using [employer] report [employer] technology. COMPARISON: None. FINDINGS: VERTEBRAE: Unremarkable. Preserved vertebral body height. No fracture. No spondylolisthesis. Preservation of the normal lumbar lordosis. No significant facet arthropathy. DISC SPACES: No acute findings. Disc spaces are maintained. GASTROINTESTINAL TRACT: Unremarkable as visualized. Included bowel gas pattern is non-obstructive. RAD/Lumbar Spine 2 or 3 Views IMPRESSION: Intact lumbosacral spine. Electronically Signed: Lloyd Lyons MD at 17:00 EDT ,
== END 2021-07-09 17:48 | disposition home or self-care (01) ==
PROVIDERS: Emergency Provider Emergency Medicine; PCP Internal Medicine; Visit Provider Emergency Medicine
DX: S39.012A Strain of muscle, fascia and tendon of lower back, initial encounter (principal); J44.9 Chronic obstructive pulmonary disease, unspecified; X50.0XXA Overexertion from strenuous movement or load, initial encounter; Y93.89 Activity, other specified; U07.1 COVID-19; F17.210 Nicotine dependence, cigarettes, uncomplicated; M54.41 Lumbago with sciatica, right side; M96.1 Postlaminectomy syndrome, not elsewhere classified; G89.29 Other chronic pain
CPT/HCPCS: 72100; 96372; 99282

== ENCOUNTER 2021-07-16 19:39 | Emergency (ER) | payer MEDICAID, SELFPAY ==
[2021-07-16 19:39] VITALS: BP 98/80; PULSE 124; RESP 18; TEMP 35.9; O2SAT 97; BMI 44.2
[2021-07-16 19:44] VITALS: BP 134/78; PULSE 88; RESP 19; TEMP 37.1; O2SAT 98
[2021-07-16 20:05] VITALS: O2SAT 97
--- NOTE | 2021-07-16 20:20 | EKG12_ITS ---
Test Reason : DYSRHYTHMIA Blood Pressure : / mmHG Vent. Rate : 079 BPM Atrial Rate : 079 BPM P-R Int : 156 ms QRS Dur : 074 ms QT Int : 346 ms P-R-T Axes : 041 066 033 degrees QTc Int : 396 ms Normal sinus rhythm Normal ECG Confirmed by SAVITA ENCISO, GIN ([id number]), video tape editor TELLO SCHUMACHER ([id number]) on 07/18/2021 9:02:40 AM Referred By: ZEB Confirmed By:GIN BARNEY MD
--- NOTE | 2021-07-16 20:22 | ED.VIS.DYS ---
HPI History of Present Illness Chief Complaint: Shortness of Breath Detail of Chief Complaint: Shortness of breath Informant: patient Narrative Narrative: Patient presents with shortness of breath. Patient was diagnosed with COVID-19 11 days ago and has had symptoms for about 12 days. Patient has been on dexamethasone. She was immunized with first 2 doses of COVID-vaccine by [employer]. Patient also has a friend that has COVID. Patient complains of headache, body aches, and shortness of breath with activity and exertion. Patient has lost sense of taste and smell. She denies any chest pain. [facility] Medical History Alcohol use Anxiety Asthma Bipolar disorder Carpal tunnel syndrome Chronic cough Chronic pain COPD (chronic obstructive pulmonary disease) Easy bruising Hepatitis Hepatitis C Herniated cervical disc History of herniated intervertebral disc History of IBS History of stress test Hx of degenerative disc disease Injury of back Leg cramps Lumbar radicular pain MARIA INES (obstructive sleep apnea) Peptic ulcer Polysubstance abuse Schizophrenia Shortness of breath on exertion Smoker Tobacco use (Unknown) Ulnar nerve laceration Wears glasses Home Medications albuterol sulfate [Ventolin HFA] 1 - 2 puff INHALATION Q4H PRN PRN #1 inhaler 07/21/15 [Rx Last Taken 10/13/17] [employer] 1 tab PO DAILY 10/16/17 [History Last Taken 10/15/17] acetaminophen 1,000 mg PO Q8H PRN 07/05/21 [History Last Taken Unknown] albuterol sulfate [Ventolin HFA] 2 puff INHALATION Q4H PRN PRN #1 inhaler 07/05/21 [Rx Last Taken Unknown] dexamethasone 6 mg PO DAILY #7 tab 07/05/21 [Rx Last Taken Unknown] trazodone 50 mg PO QHS 07/05/21 [History Last Taken Unknown] oxycodone-acetaminophen 1 tab PO Q6H PRN PRN 2 Days #8 tablet 07/09/21 [Rx Last Taken Unknown] levofloxacin 750 mg PO DAILY #5 tab 07/16/21 [Rx Last Taken Unknown] Allergy/AdvReac Type Severity Reaction Status Date / Time hydrocodone Allergy Intermediate Hives Verified 07/16/21 19:45 Surgical History History of appendectomy History of back surgery History of back surgery History of cholecystectomy History of decompression of ulnar nerve History of lumbar laminectomy History of tubal ligation Social History Smoking Status: Current every day smoker tobacco type: cigarettes substance use type: does not use ROS ROS ED ROS Narrative Loss of taste and smell Constitutional Constitutional ED: Reports systems reviewed and no addt'l complaints, except as documented; Denies body ache(s), change in weight or chills Eyes Eyes: Denies acute decrease in peripheral vision, change in vision, double vision or loss of vision ENT ENT ED: Reports none; Denies ear pain, lip swelling, loss taste/smell, neck pain, otalgia or sore throat Cardiovascular Cardiovascular: Reports none; Denies abdominal pain, chest pain with activity, leg edema, lightheadedness, palpitations, rapid heart rate or syncope Respiratory/Chest Respiratory/Chest: Reports none, cough and dyspnea; Denies change in mental status, dry cough, hemoptysis, shortness of breath at rest or shortness of breath with exertion Gastrointestinal Gastrointestinal: Reports none; Denies abdominal pain, change in stool character, diarrhea, hematemesis, hematochezia, melena, rectal bleeding or vomiting Genitourinary Genitourinary ED: Reports none; Denies abdominal discomfort, anuria, dysuria, genital pain or polyuria Musculoskeletal Musculoskeletal: Reports none and myalgias; Denies arthralgias, back pain, difficulty walking, extremity pain or muscle weakness Integumentary Reports none; Denies abscess or rash Neurologic Neurologic: Reports none; Denies abnormal gait, confusion, focal weakness, frequent falls, headache(s), loss of vision, numbness, paresthesias, radicular pain, vertigo or weakness Psychiatric Psychiatric: Reports systems reviewed and no addt'l complaints, except as documented and none; Denies behavioral changes, confusion, difficulty concentrating, hallucinations, suicidal ideation, tactile hallucinations or visual hallucinations Endocrine Endocrinology: Denies none, cold intolerance, excessive sweating, fatigue or heat intolerance Hematologic/Lymphatic Hematologic/Lymphatic: Reports none; Denies anemia, easy bleeding or easy bruising Allergic/Immunologic Allergic/Immunologic ED: Denies as per HPI, none, lip swelling, mouth swelling, throat swelling, tongue swelling or hives EXAM Physical Exam Const Vital Signs: 07/16/21 19:39 07/16/21 20:56 Temperature 96.6 F L Temperature Source Temporal Pulse Rate 124 H Respiratory Rate 18 Respiratory Effort Short of Breath Blood Pressure 98/80 Blood Pressure Mean 86 Pulse Ox 97 Oxygen Delivery Method Room Air Room Air Positive well nourished and well developed General Appearance ED: well developed and NAD HEENT Reports TM's clear and moist mucous membranes normocephalic and atraumatic; Negative for trauma or tenderness Tympanic Membrane ED: Yes TM's clear Eyes PERRL and EOMs intact bilaterally General Eye ED: Negative for pale conjunctiva or scleral icterus Neck no lymphadenopathy, supple and no JVD General: Negative for tenderness Chest Wall inspection of chest normal and palpation of chest normal Chest: Negative for tenderness Resp normal respiratory effort and clear to auscultation bilaterally Resp Narrative: Faint expiratory wheezes bilaterally. Effort and Inspection: Negative for respiratory distress or pain with movement Auscultation: wheezes; Negative for rhonchi or diminished lung sounds Cardio regular rate, regular rhythm, S1 normal heart sound, S2 normal heart sound and no murmurs Peripheral Pulses: pulses 2+ throughout GI normal to inspection, nondistended, normoactive bowel sounds, soft to palpation, non-tender, non-distended and no masses Back/Spine no CVA tenderness and no thoracic nor lumbar tenderness Extremity normal to inspection General Extremety ED: Negative for edema General Extremity: Negative for edema Neuro oriented x3, CN's II-XII intact bilaterally, no sensory deficits noted and gait normal Sensorium / Orientation: awake, alert, oriented to person, oriented to place and oriented to time Motor Exam: strength 5/5 throughout and strength abnormal Psych mental status grossly normal Skin no rashes or lesions noted and no wounds MDM MDM MDM Narrative Medical decision making narrative: IV line attempted on arrival however unsuccessful. Nurses were able to draw labs. After several attempts the patient refused further attempts. She did have an elevated white count of 17.3. D-dimer was normal. Troponin was normal. Chest x-ray was normal. Etiology of the elevated white blood cell count may be related to recent steroid use however given that she is tachycardic and coughing up phlegm entertain possibility of early post viral bacterial pneumonia and will cover with Levaquin for 5 days. Patient advised to follow-up with her primary care physician in 3 to 5 days. Patient to return if increasing shortness of breath or condition should worsen anyway. Lab Data Attestation: I reviewed the patient's lab results. Labs: Laboratory Results - last 24 hr 07/16/21 07/16/21 07/16/21 20:43 20:43 20:43 WBC 17.3 H RBC 4.91 Hgb 13.8 Hct 44.1 MCV 89.8 MCH 28.1 MCHC 31.3 L RDW Std Deviation 45.7 H RDW Coeff of Bianca 14.0 Plt Count 350 MPV 9.4 Immature Gran % (Auto) 1.000 H Neut % (Auto) 67.8 Lymph % (Auto) 24.6 Evans % (Auto) 5.6 Eos % (Auto) 0.8 Baso % (Auto) 0.2 Absolute Neuts (auto) 11.7 H Absolute Lymphs (auto) 4.27 Nucleated RBC % 0 D-Dimer Quant (PE/DVT) < 0.27 L Sodium 137 Potassium 4.3 Chloride 104 Carbon Dioxide 27.0 Anion Gap 6 BUN 18 Creatinine 0.77 Estim Creat Clear Calc 74.72 Est GFR (MDRD) Af Amer 103 Est GFR (MDRD) Non-Af 85 BUN/Creatinine Ratio 23.3 H Glucose 105 Calcium 9.9 Troponin I High Sens < 3 L Radiography Chest X-Ray - ED: 1 View Diagnostic Testing: Clinical Impression(s) from Imaging Studies Chest X-Ray 07/16/21 21:00 IMPRESSION: There are no acute findings. Electronically Signed: Farhan Medrano MD at 21:31 EDT Reading Location ID and State: [facility] / [place] , Service support , 1 view chest x-ray obtained interpreted by myself as no acute disease process. Radiology in agreement. Discharge Plan Triage Chief Complaint: Shortness of Breath ED Provider: Sukhdeep Ribeiro Dx/Rx/DC Orders Clinical Impression: Acute dyspnea, COVID-19 Instructions: ED Dyspnea, Caring for Someone Who Has COVID-19 Prescriptions: New levofloxacin 750 mg tablet 750 mg PO DAILY Qty: 5 RF: 0 No Action albuterol sulfate [Ventolin HFA] 1 INHALER inhaler 1 - 2 puff inhalation Q4H PRN PRN (Reason: Wheezing) Qty: 1 RF: 0 [employer] 1 EACH tablet 1 tab PO DAILY RF: 0 trazodone 50 mg Tablet 50 mg PO QHS RF: 0 acetaminophen 500 mg tablet 1,000 mg PO Q8H PRN (Reason: Pain) RF: 0 dexamethasone 6 MG tablet 6 mg PO DAILY Qty: 7 RF: 0 albuterol sulfate [Ventolin HFA] 1 INHALER inhaler 2 puff inhalation Q4H PRN PRN (Reason: Wheezing) Qty: 1 RF: 0 oxycodone-acetaminophen [oxycodone-acetaminophen] 1 TABLET tablet 1 tab PO Q6H PRN PRN (Reason: Pain) 2 Days Qty: 8 RF: 0 Primary Care Provider: Sobeida Berger Referrals: Sobeida Berger MD [Primary Care Provider] - Disposition Disposition: Home, Self Care
--- NOTE | 2021-07-16 20:53 | ED.RN ---
IV line blew x3. Able to send blood to lab but patient declines further attempts.
[2021-07-16 20:56] VITALS: O2SAT 99
[2021-07-16 20:58] LABS: Absolute Lymphocyte Count 4.27 X10^3/uL (0.83-4.51); Absolute Neutrophil Count 11.7 X10^3/uL (2.0-7.7); Basophil# 0.04 X10^3/uL; Basophil% 0.2 % (0-1); Eosinophil# 0.14 X10^3/uL; Eosinophils% 0.8 % (0-5); Hematocrit 44.1 % (37-47); Hemoglobin 13.8 g/dL (12.0-15.0); Lymphocyte # 4.27 X10^3/ul (0.83-4.51); Lymphocyte % 24.6 % (19-41); Mean Corp Hgb Conc 31.3 g/dL (32-36); Mean Corpuscular Hgb 28.1 pg (27.0-32.0); Mean Corpuscular Volume 89.8 fL (81-99); Mean Platelet Vol. 9.4 fl (6.2-12.0); Monocyte# 0.97 X10^3/uL; Monocyte% 5.6 % (0-10); NRBC Flagged by Analyzer 0 % (0-5); Neutrophil # 11.74 X10^3/uL (2.7-7.7); Neutrophil % 67.8 % (47-70); Platelet Count 350 K/mm3 (150-450); RBC Distribution Width SD 45.7 fl (35.1-43.9); Red Blood Count 4.91 M/mm3 (4.2-5.4); White Blood Count 17.3 K/mm3 (4.4-11.0)
--- NOTE | 2021-07-16 21:00 | RAD_ITS ---
STUDY: X-RAY CHEST REASON FOR EXAM: Female, 46 years old. CHEST PAIN dyspnea TECHNIQUE: XR Chest 1 View COMPARISON: 07.05.21 FINDINGS: There is no demonstrated pleural abnormality. Normal size heart. Normal mediastinum and violetta. Normal visualized pulmonary arteries. Normal visualized aortic arch and descending thoracic aorta. Normal visualized thoracic spine. Normal visualized ribs, clavicles, and shoulders. There is no demonstrated abnormality of the visualized soft tissue structures of the upper abdomen. RAD/Chest 1 View (Portable) IMPRESSION: There are no acute findings. Electronically Signed: Farhan Medrano MD at 21:31 EDT ,
[2021-07-16 21:07] LABS: Anion Gap 6 (5-15); BUN 18 mg/dL (7-18); BUN/Creat Ratio 23.3 RATIO (10-20); Calcium,Total 9.9 mg/dL (8.5-10.1); Chloride 104 mmol/L (98-107); Creatinine, Serum 0.77 mg/dL (0.55-1.02); EST Glomerular Filtration Rate 85 mL/min (>60); Est Glom Filt Rate - Afr Amer 103 mL/min (>60); Estimated Creatinine Clearance 74.72 ml/min; Glucose 105 mg/dL (74-106); Potassium 4.3 mmol/L (3.5-5.1); Sodium Level 137 mmol/L (136-145); Troponin-I HS < 3 pg/mL (3.0-54.0)
[2021-07-16] MEDS: Ondansetron ODT 4 MG Tablet PO (21:14)
[2021-07-16 21:41] LABS: D-Dimer Quantitative (DVT/PE) < 0.27 FEU/ug/m (0.27-0.49)
[2021-07-16 21:55] VITALS: BP 132/80; PULSE 78; RESP 17; O2SAT 98
--- NOTE | 2021-07-16 21:59 | ED.RN ---
Went to dischage patient and give her the levaquin but room empty. Other nurse reports she gave her the papers and saw patient leave.
== END 2021-07-16 22:01 | disposition home or self-care (01) ==
PROVIDERS: Emergency Provider Emergency Medicine; PCP Internal Medicine; Visit Provider Emergency Medicine
DX: U07.1 COVID-19 (principal); J44.9 Chronic obstructive pulmonary disease, unspecified; F17.210 Nicotine dependence, cigarettes, uncomplicated
CPT/HCPCS: 71045; 80048; 84484; 85025; 85379; 93005; 99283; J7030; A4216

== ENCOUNTER → 2021-09-06 | Outpatient (CLI) | payer MEDICAID, SELFPAY ==
--- NOTE | 2021-09-06 18:10 | MRI_ITS ---
STUDY: MRI LUMBAR SPINE WITH AND WITHOUT CONTRAST REASON FOR EXAM: Female, 46 years old. BILATERAL LEG PAIN. MIDDLE BACK AND LOWER BACK PAIN. BACK SURGERY 11/22/20. PREVIOUS:XR LUMBAR 07/09/21 AND MR LUMBAR 03/12/21 TECHNIQUE: Standardized fat and water weighted pulse sequences were obtained in the sagittal and axial planes. Pre and post 23ml of DOTAREM contrast material was administered for the contrast portion of the examination. Comparison: Mar 12 2021 9:11am FINDINGS: T12-L1: Normal endplates. Normal disc height, hydration and morphology. Normal bilateral facet joints. Normal central canal and bilateral lateral recesses. Normal bilateral intervertebral neural foramina. Normal lumbar lordosis. There is no substantial scoliosis. Normal conus medullaris that terminates at the L1-2: Normal endplates. Normal disc height, hydration and morphology. Normal bilateral facet joints. Normal central canal and bilateral lateral recesses. Normal bilateral intervertebral neural foramina. L2-3: Normal endplates. Normal disc height, hydration and morphology. Normal bilateral facet joints. Normal central canal and bilateral lateral recesses. Normal bilateral intervertebral neural foramina. L3-4: Normal endplates. Normal disc height, hydration and morphology. Normal bilateral facet joints. Normal central canal and bilateral lateral recesses. Normal bilateral intervertebral neural foramina.Right partial facetectomy or decompressive osteotomy noted at the L3-L4 level. L3 spinous process metallic artifact may be from an Comstock device. L4-5: Left paracentral disc herniation extending into the left neural foramina causing compression of the exiting left L4 nerve root. L5-S1: Normal endplates. Normal disc height, hydration and morphology. Normal bilateral facet joints. Normal central canal and bilateral lateral recesses. Normal bilateral intervertebral neural foramina. Normal visualized sacral ala. Normal visualized paraspinous soft tissue structures. MRI/Spine Lumbar W/WO Contrast IMPRESSION: L4-5: Left paracentral disc herniation extending into the left neural foramina causing compression of the exiting left L4 nerve root. Electronically Signed: Farhan Medrano MD at 20:27 EDT ,
== END | disposition home or self-care (01) ==
LOC: MRI 17:43
PROVIDERS: PCP Internal Medicine; Visit Provider Orthopaedic Surgery
DX: M51.26 Other intervertebral disc displacement, lumbar region (principal)
CPT/HCPCS: 72158; A9575

== ENCOUNTER 2021-09-10 13:05 | Emergency (ER) | payer MEDICAID, SELFPAY ==
[2021-09-10 13:06] VITALS: BP 116/91; PULSE 115; RESP 18; TEMP 36.7; O2SAT 95; BMI 44.6
--- NOTE | 2021-09-10 14:39 | EX.ED.DYSGE1 ---
HPI History of Present Illness Chief Complaint: General Illness Narrative Narrative: Patient with chronic back pain, taking Percocet, presents with 3 days of mid to low back pain and burning sensation radiating to both hips. She denies any fevers or chills. No loss of bowel or bladder. No saddle anesthesia. She states she had an MRI last Thursday as her doctor, Dr. Avery, is planning to do surgery on her because her back is really bad. She is not taking any muscle relaxers or anti-inflammatories, she states the Percocet only makes her nauseated and does not help with her pain. 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 She denies any injury but states that she has been sore over the last few days and her lower back. Although she does not have any dysuria or hematuria, or urinary frequency, she wants to make sure she does not have a urinary tract infection. The pain does not radiate down her legs but rather to her hips. Pain is worse with standing and walking, and transfer. [facility] Medical History Alcohol use Anxiety Asthma Bipolar disorder Carpal tunnel syndrome Chronic cough Chronic pain COPD (chronic obstructive pulmonary disease) Easy bruising Hepatitis Hepatitis C Herniated cervical disc History of herniated intervertebral disc History of IBS History of stress test Hx of degenerative disc disease Injury of back Leg cramps Lumbar radicular pain MARIA INES (obstructive sleep apnea) Peptic ulcer Polysubstance abuse Schizophrenia Shortness of breath on exertion Smoker Tobacco use (Unknown) Ulnar nerve laceration Wears glasses Home Medications albuterol sulfate 90 mcg/actuation aerosol inhaler (Ventolin HFA) 1 - 2 puff inhalation Q4H PRN PRN Wheezing ##1 07/21/15 [Rx Last Taken 10/13/17] gwseltys-qrrdosq-iga-iron 18 mg-FA 400 mcg-vit K 80 mcg-hrb#244 tablet ([employer]) 1 tab PO DAILY supplement 10/16/17 [History Last Taken 10/15/17] acetaminophen 500 mg tablet 1,000 mg PO Q8H PRN Pain 07/05/21 [History Last Taken Unknown] albuterol sulfate 90 mcg/actuation aerosol inhaler (Ventolin HFA) 2 puff inhalation Q4H PRN PRN Wheezing ##1 07/05/21 [Rx Last Taken Unknown] dexamethasone 6 mg tablet 6 mg PO DAILY #7 tabs 07/05/21 [Rx Last Taken Unknown] trazodone 50 mg tablet 50 mg PO QHS 07/05/21 [History Last Taken Unknown] oxycodone-acetaminophen 5 mg-325 mg tablet 1 tab PO Q6H PRN PRN Pain 2 days #8 TABLETS 07/09/21 [Rx Last Taken Unknown] levofloxacin 750 mg tablet 750 mg PO DAILY #5 tabs 07/16/21 [Rx Last Taken Unknown] cyclobenzaprine 10 mg tablet 10 mg PO TID PRN muscle spasm #21 tabs 09/10/21 [Rx Last Taken Unknown] ibuprofen 800 mg tablet 800 mg PO TID PRN pain #30 tabs 09/10/21 [Rx Last Taken Unknown] Allergy/AdvReac Type Severity Reaction Status Date / Time hydrocodone Allergy Intermediate Hives Verified 09/10/21 13:08 Surgical History History of appendectomy History of back surgery History of back surgery History of cholecystectomy History of decompression of ulnar nerve History of lumbar laminectomy History of tubal ligation Social History Smoking Status: Current every day smoker tobacco type: cigarettes substance use type: does not use ROS ROS ED ROS Narrative Constitutional: No fever, no chills. HEENT: No sore throat. No neck pain. No loss of vision. No rhinorrhea. Cardiovascular: No chest pain. No palpitations. No pedal edema. Respiratory: No cough, no shortness of breath. Abdominal: No abdominal pain. No nausea. No vomiting. Genitourinary: No dysuria. No hematuria. No urinary frequency. Musculoskeletal: No myalgias. Positive low back pain from lumbar spine to buttocks cleft. Burning sensation bilateral hips. Neurologic: No headaches. No dizziness. No lightheadedness. Skin: No rash. No change in color. Psychiatric: No depression. No anxiety. EXAM Physical Exam Narrative Exam Narrative: Afebrile. Vital signs noted. HEENT: Normocephalic. Atraumatic. PERRL, EOMI. Neck soft and supple. No point tenderness or step off. Cardiovascular: Regular rate and rhythm. No murmurs, rubs, or gallops appreciated. Respiratory: No tachypnea. Lungs clear to auscultation bilaterally. Gastrointestinal: Abdomen soft, nontender, with normoactive bowel sounds. No rebound or guarding. Neurological: Awake. Alert. Nonfocal, nonlateralizing. Straight leg raising negative bilaterally. DTRs equal and symmetric. Skin: No rash. Normal color. No pallor. Musculoskeletal: No pedal edema. Full range of motion extremities. No vertebral point tenderness or bony step-off. No CVA tenderness to percussion. Const Vital Signs: 09/10/21 13:06 09/10/21 14:24 Temperature 98.1 F Temperature Source Temporal Pulse Rate 115 H Respiratory Rate 18 Respiratory Effort Normal Non-Labored Respiratory Pattern Normal Blood Pressure 116/91 H Blood Pressure Mean 99 Pulse Ox 95 Oxygen Delivery Method Room Air MDM MDM MDM Narrative Medical decision making narrative: I do not feel that emergent imaging is indicated. She had an MRI of her spine recently. She has had chronic problems with radicular pain. She was given Toradol 60 mg intravenously muscularly and Norflex 60 mg intramuscularly. I will obtain a UA to check for any infection, as well as urine beta-hCG. She requested to be off work today and tomorrow. Urinalysis is a contaminated specimen with 25-50 squamous epithelial cells. I do not feel antibiotics are indicated. After her intramuscular injections, she states that her burning sensation in her hips has improved. I do think that this is related to her acute on chronic low back pain and her lumbar disc disease with radiculopathy. She was written prescriptions for ibuprofen and for Flexeril and she will follow-up with her orthopedic back surgeon, Dr. Avery. I feel she be discharged safely home with follow-up. Return instructions were reviewed. Disposition is discharged home in stable condition. Lab Data Attestation: I reviewed the patient's lab results. Labs: Laboratory Results - last 24 hr 09/10/21 14:51 Urine Color Yellow Urine Clarity Cloudy Urine pH 6.5 Ur Specific [place] 1.010 Urine Protein Negative Urine Glucose (UA) Normal Urine Ketones Negative Urine Occult Blood 10 H Urine Nitrite Negative Urine Bilirubin Negative Urine Urobilinogen Normal Ur Leukocyte Esterase 500 H Urine RBC 0-5 SEEN Urine WBC 10-25 SEEN Ur Squamous Epith Cells 25-50 SEEN Urine Bacteria 2+ Urine Mucus 0 SEEN Urine Trichomonas 0-5 SEEN Urine Test Negative Discharge Plan Triage Chief Complaint: General Illness ED Provider: Marvin Dougherty Dx/Rx/DC Orders Clinical Impression: Acute exacerbation of chronic low back pain, Lumbar disc disease with radiculopathy Instructions: ED Back Pain (Acute or Chronic), ED Degenerative Disk Disease Prescriptions: New ibuprofen 800 mg tablet 800 mg PO TID PRN (Reason: pain) Qty: 30 0RF cyclobenzaprine 10 mg tablet 10 mg PO TID PRN (Reason: muscle spasm) Qty: 21 0RF No Action albuterol sulfate [Ventolin HFA] 1 INHALER inhaler 1 - 2 puff inhalation Q4H PRN PRN (Reason: Wheezing) Qty: 1 0RF Label Comments: asthma [employer] 1 EACH tablet 1 tab PO DAILY trazodone 50 mg Tablet 50 mg PO QHS acetaminophen 500 mg tablet 1,000 mg PO Q8H PRN (Reason: Pain) dexamethasone 6 MG tablet 6 mg PO DAILY Qty: 7 0RF albuterol sulfate [Ventolin HFA] 1 INHALER inhaler 2 puff inhalation Q4H PRN PRN (Reason: Wheezing) Qty: 1 0RF oxycodone-acetaminophen [oxycodone-acetaminophen] 1 TABLET tablet 1 tab PO Q6H PRN PRN (Reason: Pain) 2 Days Qty: 8 0RF levofloxacin 750 mg tablet 750 mg PO DAILY Qty: 5 0RF Stand Alone Forms: ED Work / School Excuse Primary Care Provider: Sobeida Berger Referrals: Sobeida Berger MD [Primary Care Provider] - 3-5 Days if not improving Gael Avery DO [STAFF PHYSICIAN] - As soon as possible Disposition Disposition: Home, Self Care
[2021-09-10] MEDS: Ketorolac 60 MG/2 ML Vial IM (14:53)
[2021-09-10] MEDS: Orphenadrine 60 MG/2 ML Ampul IM (14:54)
[2021-09-10 15:02] LABS: Mucous, Urine 0 SEEN /hpf (<or=2+)
[2021-09-10 15:10] LABS: Color, Urine Yellow (Yellow); Glucose, Dipstick Normal (Normal); Ketone-Dipstick Negative (Negative); Leukocyte Esterase-Dipstick 500 /ul (Negative); Nitrite-Dipstick Negative (Negative); Occult Blood-Urine 10 /ul (Negative); Protein-Dipstick Negative (Negative); Urine Bilirubin Dipstick Negative (Negative); Urine Clarity Cloudy (Clear); Urine Urobilinogen Normal (Normal); Urine pH 6.5 (5.0 - 8.0)
[2021-09-10 15:18] LABS: Squamous Epithelial Cells - UA 25-50 SEEN /hpf (5-10); Trichomonas 0-5 SEEN /hpf (None Seen)
[2021-09-10 15:19] LABS: Bacteria 2+ /hpf (None Seen)
[2021-09-10 15:20] LABS: Internal QC Validated? YES +Cl - CLEAR BKGD; Pregnancy, Urine Negative Negative; Red Blood Cells-Urine 0-5 SEEN /hpf (0-5); White Blood Cells 10-25 SEEN /hpf (0-5)
[2021-09-10 16:13] VITALS: BP 118/62; PULSE 71; RESP 15; O2SAT 98
== END 2021-09-10 16:14 | disposition home or self-care (01) ==
PROVIDERS: Emergency Provider Emergency Medicine; PCP Internal Medicine; Visit Provider Emergency Medicine
DX: M51.16 Intervertebral disc disorders with radiculopathy, lumbar region (principal); J44.9 Chronic obstructive pulmonary disease, unspecified; G89.29 Other chronic pain; F17.210 Nicotine dependence, cigarettes, uncomplicated
CPT/HCPCS: 81001; 81025; 96372; 99282

== ENCOUNTER 2021-11-09 13:52 | Emergency (ER) | payer MEDICAID, SELFPAY ==
[2021-11-09 13:53] VITALS: BP 138/84; PULSE 86; RESP 14; TEMP 36.7; O2SAT 95; BMI 43.9
--- NOTE | 2021-11-09 14:03 | CT_ITS ---
STUDY: CT Abdomen And Pelvis W/O Contrast Injection 11/09/2021 2:49 PM REASON FOR EXAM: Female, 46 years old. ABDOMINAL PAIN abd pain Technologist Notes RLQ PAIN, N/V/D X 5 DAYS TECHNIQUE: Transaxial images were obtained without oral contrast, and without intravenous contrast. Individualized dose optimization techniques were used for this CT. COMPARISON: Dec 26 2020 6:02pm FINDINGS: The visualized lung bases are unremarkable. The visualized portions of the heart are within normal limits. There is hepatomegaly with diffuse hepatic enlargement. There is non-visualization of the gallbladder, which may be secondary to either contraction or a prior cholecystectomy. Unremarkable spleen. Unremarkable pancreas. Unremarkable bilateral adrenal glands. No acute findings of the right kidney. No acute findings of the left kidney. Unremarkable visualized stomach. Unremarkable small intestine. Unremarkable colon. There are surgical clips in the region of the appendix consistent with a prior appendectomy. There are no acute findings of the abdominal aorta. Unremarkable inferior vena cava. Subcentimeter mesenteric lymph nodes. Unremarkable urinary bladder. Unremarkable abdominal wall. Unremarkable osseous structures. CT/Abdomen/Pelvis without Cont IMPRESSION: (NOT LISTED IN ORDER OF SIGNIFICANCE) There are no acute findings. There is hepatomegaly with diffuse hepatic enlargement. There are surgical clips in the region of the appendix consistent with a prior appendectomy. Other findings as above. Electronically Signed: Farhan Medrano MD at 14:52 EDT ,
--- NOTE | 2021-11-09 14:05 | EDS_ITS ---
HPI History of Present Illness Chief Complaint: Abd Pain Informant: patient Onset/Context/Timing Onset: Days (Approximately 1 week) Context: Gradual Onset Timing: Waxes and wanes Current Severity: Moderate Maximum Severity: Moderate Narrative Narrative: Patient presents with generalized abdominal cramping with intermittent sharp pain. Symptoms of been ongoing for a week or so. She thought she had food poisoning. She has not noted fever. She has had vomiting and diarrhea. [facility] Medical History Alcohol use Anxiety Asthma Bipolar disorder Carpal tunnel syndrome Chronic cough Chronic pain COPD (chronic obstructive pulmonary disease) Easy bruising Hepatitis Hepatitis C Herniated cervical disc History of herniated intervertebral disc History of IBS History of stress test Hx of degenerative disc disease Injury of back Leg cramps Lumbar radicular pain MARIA INES (obstructive sleep apnea) Peptic ulcer Polysubstance abuse Schizophrenia Shortness of breath on exertion Smoker Tobacco use (Unknown) Ulnar nerve laceration Wears glasses Home Medications albuterol sulfate 90 mcg/actuation aerosol inhaler (Ventolin HFA) 1 - 2 puff i nhalation Q4H PRN PRN Wheezing ##1 07/21/15 [Rx Last Taken 10/13/17] mwrrodtr-nlzyuek-xhz-iron 18 mg-FA 400 mcg-vit K 80 mcg-hrb#244 tablet ([employer]) 1 tab PO DAILY supplement 10/16/17 [History Last Taken 10/15/17] acetaminophen 500 mg tablet 1,000 mg PO Q8H PRN Pain 07/05/21 [History Last Taken Unknown] albuterol sulfate 90 mcg/actuation aerosol inhaler (Ventolin HFA) 2 puff inhalation Q4H PRN PRN Wheezing ##1 07/05/21 [Rx Last Taken Unknown] dexamethasone 6 mg tablet 6 mg PO DAILY #7 tabs 07/05/21 [Rx Last Taken Unknown] trazodone 50 mg tablet 50 mg PO QHS 07/05/21 [History Last Taken Unknown] oxycodone-acetaminophen 5 mg-325 mg tablet 1 tab PO Q6H PRN PRN Pain 2 days #8 TABLETS 07/09/21 [Rx Last Taken Unknown] levofloxacin 750 mg tablet 750 mg PO DAILY #5 tabs 07/16/21 [Rx Last Taken Unknown] cyclobenzaprine 10 mg tablet 10 mg PO TID PRN muscle spasm #21 tabs 09/10/21 [Rx Last Taken Unknown] ibuprofen 800 mg tablet 800 mg PO TID PRN pain #30 tabs 09/10/21 [Rx Last Taken Unknown] dicyclomine 20 mg tablet 20 mg PO TID PRN abdominal cramping #14 tabs 11/09/21 [Rx Last Taken Unknown] metoclopramide HCl 10 mg tablet (Reglan) 10 mg PO Q6H PRN nausea and vomiting #14 tabs 11/09/21 [Rx Last Taken Unknown] Allergy/AdvReac Type Severity Reaction Status Date / Time hydrocodone Allergy Intermediate Hives Verified 11/09/21 13:53 Surgical History History of appendectomy History of back surgery History of back surgery History of cholecystectomy History of decompression of ulnar nerve History of lumbar laminectomy History of tubal ligation Social History Smoking Status: Current every day smoker tobacco type: cigarettes substance use type: does not use ROS ROS ED Constitutional Constitutional ED: Denies chills or fever(s) Eyes Eyes: Denies change in vision or discharge from eye(s) ENT ENT ED: Denies discharge from eye(s), rhinorrhea or sore throat Cardiovascular Cardiovascular: Denies chest pain or palpitations Respiratory/Chest Respiratory/Chest: Denies cough or dyspnea Gastrointestinal Gastrointestinal: Reports abdominal pain, diarrhea, nausea and vomiting Genitourinary Genitourinary ED: Denies difficulty urinating or dysuria Musculoskeletal Musculoskeletal: Denies back pain or extremity pain Integumentary Denies Abrasions or rash Neurologic Neurologic: Denies headache(s) or weakness Psychiatric Psychiatric: Denies anxiety or depression Allergic/Immunologic Allergic/Immunologic ED: Denies lip swelling or urticaria EXAM Physical Exam Const Vital Signs: 11/09/21 13:53 Temperature 98.1 F Temperature Source Temporal Pulse Rate 86 Respiratory Rate 14 Blood Pressure 138/84 H Blood Pressure Mean 102 Pulse Ox 95 Oxygen Delivery Method Room Air Positive well nourished and well developed General Appearance ED: well developed HEENT Reports normocephalic and head/scalp atraumatic Eyes PERRL and EOMs intact bilaterally Neck supple Chest Wall inspection of chest normal and palpation of chest normal Resp normal respiratory effort and clear to auscultation bilaterally Cardio regular rate and regular rhythm GI Palpation: soft and tender other (Right sided mid and upper abdomen tender to palpation. No guarding or rebound.) Extremity normal to inspection Neuro oriented x3 and no sensory deficits noted Sensorium / Orientation: alert Motor Exam: strength 5/5 throughout Psych mental status grossly normal Skin no rashes or lesions noted MDM MDM MDM Narrative Medical decision making narrative: Patient was given morphine along with Reglan and Benadryl to help control pain and nausea. Lab work obtained along with urinalysis and CT flank. Lab Data Attestation: I reviewed the patient's lab results. Labs: Laboratory Results - last 24 hr 11/09/21 11/09/21 11/09/21 14:20 14:20 15:15 WBC 9.2 RBC 4.74 Hgb 12.9 Hct 41.1 MCV 86.7 MCH 27.2 MCHC 31.4 L RDW Std Deviation 40.6 RDW Coeff of Bianca 12.9 Plt Count 250 MPV 9.3 Immature Gran % (Auto) 0.300 Neut % (Auto) 71.2 H Lymph % (Auto) 22.4 [place] % (Auto) 5.1 Eos % (Auto) 0.8 Baso % (Auto) 0.2 Absolute Neuts (auto) 6.5 Absolute Lymphs (auto) 2.06 Nucleated RBC % 0 Sodium 137 Potassium 3.9 Chloride 105 Carbon Dioxide 27.0 Anion Gap 5 BUN 7 Creatinine 0.63 Estim Creat Clear Calc 91.32 Est GFR (MDRD) Af Amer 129 Est GFR (MDRD) Non-Af 107 BUN/Creatinine Ratio 11.1 Glucose 104 Calcium 9.4 Total Bilirubin 0.40 Direct Bilirubin 0.12 AST 43 H ALT 52 Alkaline Phosphatase 87 Total Protein 7.6 Albumin 3.4 Globulin 4.2 Lipase 93 Urine Color Yellow Urine Clarity Sl. Cloudy Urine pH 5.0 Ur Specific [place] 1.020 Urine Protein 15 H Urine Glucose (UA) Normal Urine Ketones Negative Urine Occult Blood Negative Urine Nitrite Negative Urine Bilirubin Negative Urine Urobilinogen Normal Ur Leukocyte Esterase 100 H Urine RBC 0 SEEN Urine WBC 5-10 SEEN Ur Squamous Epith Cells 10-25 SEEN Urine Bacteria 0 SEEN Urine Mucus 0 SEEN Radiography Diagnostic Testing: Clinical Impression(s) from Imaging Studies Abdomen/Pelvis CT 11/09/21 14:03 IMPRESSION: (NOT LISTED IN ORDER OF SIGNIFICANCE) There are no acute findings. There is hepatomegaly with diffuse hepatic enlargement. There are surgical clips in the region of the appendix consistent with a prior appendectomy. Other findings as above. Electronically Signed: Farhan Medrano MD at 14:52 EDT Reading Location ID and State: [facility] / [place] , Service support , Treatment and Re-Evaluation Narrative: CBC is unremarkable. Chemistry studies normal. LFTs significant only for an AST of 43. Lipase is normal. Urinalysis reveals no acute infection. Stool studies were ordered but patient has not been able to provide a sample here. CT flank reveals hepatomegaly with diffuse hepatic enlargement. No other acute findings are noted. Patient does have focal tenderness over the right upper quadrant with an elevated AST. She has a history of hepatitis C in the past. Given her GI symptoms I will obtain a hepatitis panel to rule out hepatitis A and E. Patient was advised that this will be a send out test. She will be given prescriptions for Reglan and Bentyl. Discharge Plan Triage Chief Complaint: Abd Pain ED Provider: Samantha Meyer Dx/Rx/DC Orders Clinical Impression: Gastroenteritis, Hepatomegaly Instructions: ED FOOD POIS or G-ENTERITIS 6y-davin Prescriptions: New metoclopramide HCl [Reglan] 10 mg tablet 10 mg PO Q6H PRN (Reason: nausea and vomiting) Qty: 14 0RF dicyclomine 20 mg tablet 20 mg PO TID PRN (Reason: abdominal cramping) Qty: 14 0RF No Action albuterol sulfate [Ventolin HFA] 1 INHALER inhaler 1 - 2 puff inhalation Q4H PRN PRN (Reason: Wheezing) Qty: 1 0RF Label Comments: asthma [employer] 1 EACH tablet 1 tab PO DAILY trazodone 50 mg Tablet 50 mg PO QHS acetaminophen 500 mg tablet 1,000 mg PO Q8H PRN (Reason: Pain) dexamethasone 6 MG tablet 6 mg PO DAILY Qty: 7 0RF albuterol sulfate [Ventolin HFA] 1 INHALER inhaler 2 puff inhalation Q4H PRN PRN (Reason: Wheezing) Qty: 1 0RF oxycodone-acetaminophen [oxycodone-acetaminophen] 1 TABLET tablet 1 tab PO Q6H PRN PRN (Reason: Pain) 2 Days Qty: 8 0RF levofloxacin 750 mg tablet 750 mg PO DAILY Qty: 5 0RF ibuprofen 800 mg tablet 800 mg PO TID PRN (Reason: pain) Qty: 30 0RF cyclobenzaprine 10 mg tablet 10 mg PO TID PRN (Reason: muscle spasm) Qty: 21 0RF Primary Care Provider: Sobeida Berger Referrals: Sobeida Berger MD [Primary Care Provider] - 1 Week if not improving Disposition Disposition: Home, Self Care
[2021-11-09] MEDS: 0.9% Normal Saline 1,000 ML 1000 ML IV (14:22)
[2021-11-09] MEDS: Morphine 4 MG/ML Syringe IV (14:22)
[2021-11-09] MEDS: DiphenhydrAMINE 50 MG/ML Syringe 12.5 MG IV (14:22)
[2021-11-09] MEDS: Metoclopramide 10 MG/2 ML Vial 5 MG IV (14:22)
[2021-11-09 14:25] LABS: Absolute Lymphocyte Count 2.06 X10^3/uL (0.83-4.51); Absolute Neutrophil Count 6.5 X10^3/uL (2.0-7.7); Basophil# 0.02 X10^3/uL; Basophil% 0.2 % (0-1); Eosinophil# 0.07 X10^3/uL; Eosinophils% 0.8 % (0-5); Hematocrit 41.1 % (37-47); Hemoglobin 12.9 g/dL (12.0-15.0); Lymphocyte # 2.06 X10^3/ul (0.83-4.51); Lymphocyte % 22.4 % (19-41); Mean Corp Hgb Conc 31.4 g/dL (32-36); Mean Corpuscular Hgb 27.2 pg (27.0-32.0); Mean Corpuscular Volume 86.7 fL (81-99); Mean Platelet Vol. 9.3 fl (6.2-12.0); Monocyte# 0.47 X10^3/uL; Monocyte% 5.1 % (0-10); NRBC Flagged by Analyzer 0 % (0-5); Neutrophil # 6.54 X10^3/uL (2.7-7.7); Neutrophil % 71.2 % (47-70); Platelet Count 250 K/mm3 (150-450); RBC Distribution Width CV 12.9 % (11.6-14.6); RBC Distribution Width SD 40.6 fl (35.1-43.9); Red Blood Count 4.74 M/mm3 (4.2-5.4); White Blood Count 9.2 K/mm3 (4.4-11.0)
[2021-11-09 14:40] LABS: AST(SGOT) 43 U/L (15-37); Alanine Aminotransfer ALT/SGPT 52 U/L (13-56); Albumin, Serum 3.4 g/dL (3.2-5.0); Alkaline Phosphatase 87 U/L (45-117); Anion Gap 5 (5-15); BUN 7 mg/dL (7-18); BUN/Creat Ratio 11.1 RATIO (10-20); Bilirubin, Direct 0.12 mg/dL (0.00-0.30); Calcium,Total 9.4 mg/dL (8.5-10.1); Chloride 105 mmol/L (98-107); Creatinine, Serum 0.63 mg/dL (0.55-1.02); EST Glomerular Filtration Rate 107 mL/min (>60); Est Glom Filt Rate - Afr Amer 129 mL/min (>60); Estimated Creatinine Clearance 91.32 ml/min; Globulin 4.2 g/dL (2.2-4.2); Glucose 104 mg/dL (74-106); Lipase 93 U/L (73-393); Potassium 3.9 mmol/L (3.5-5.1); Protein, Total 7.6 g/dL (6.4-8.2); Sodium Level 137 mmol/L (136-145)
[2021-11-09] MEDS: 0.9% Normal Saline 1,000 ML 150 ML IV (15:00)
[2021-11-09 15:21] LABS: Bacteria 0 SEEN /hpf (None Seen); Mucous, Urine 0 SEEN /hpf (<or=2+); Red Blood Cells-Urine 0 SEEN /hpf (0-5)
[2021-11-09 15:26] LABS: Color, Urine Yellow (Yellow); Glucose, Dipstick Normal (Normal); Ketone-Dipstick Negative (Negative); Leukocyte Esterase-Dipstick 100 /ul (Negative); Nitrite-Dipstick Negative (Negative); Occult Blood-Urine Negative /ul (Negative); Protein-Dipstick 15 mg/dl (Negative); Urine Bilirubin Dipstick Negative (Negative); Urine Clarity Sl. Cloudy (Clear); Urine Urobilinogen Normal (Normal)
[2021-11-09 15:55] LABS: White Blood Cells 5-10 SEEN /hpf (0-5)
[2021-11-09 15:56] LABS: Squamous Epithelial Cells - UA 10-25 SEEN /hpf (5-10)
[2021-11-09 16:08] VITALS: BP 145/78; PULSE 66; RESP 14; TEMP 37.2; O2SAT 98
[2021-11-09 16:37] VITALS: BP 113/79; RESP 16; O2SAT 98
== END 2021-11-09 16:37 | disposition home or self-care (01) ==
PROVIDERS: Emergency Provider Emergency Medicine; PCP Internal Medicine; Visit Provider Emergency Medicine
DX: K52.9 Noninfective gastroenteritis and colitis, unspecified (principal); J44.9 Chronic obstructive pulmonary disease, unspecified; R16.0 Hepatomegaly, not elsewhere classified; F17.210 Nicotine dependence, cigarettes, uncomplicated; Z90.49 Acquired absence of other specified parts of digestive tract; Z79.899 Other long term (current) drug therapy
CPT/HCPCS: 74176; 80048; 80074; 80076; 81001; 83690; 85025; 96361; 96374; 96375; 99283; J7030; A4216

== ENCOUNTER 2022-01-15 19:48 | Emergency (ER) | payer MEDICAID, SELFPAY ==
[2022-01-15 19:49] VITALS: BP 128/75; PULSE 83; RESP 16; TEMP 36.2; O2SAT 95; BMI 43.4
--- NOTE | 2022-01-15 21:24 | ED.RN ---
pt c/o nausea xseveral years. states the reglan and zofran dr porter continues to rx her are no longer effective. also states her back pain improved in sept after her back sx, but has flared up again.
--- NOTE | 2022-01-15 21:26 | ED.RN ---
upon return to room, pt now c/o pain in upper rt back under shoulder blade.
--- NOTE | 2022-01-15 22:10 | ED.VIS.BACK ---
HPI History of Present Illness Chief Complaint: Back Informant: patient Onset/Context/Timing Onset: Weeks (1 (worse than usual)) Context: Gradual Onset Injury: lifting, bending and repetitive motion Timing: Continuous Quality: Aching Location: Lumbar and Right Leg (Groin only sometimes down to the knee but never beyond) Current Severity: Severe Maximum Severity: Severe Worsened by: improves with Movement, Ambulation and - (Lying in 1 position for short amount of time. 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 She is post to be at work tonight, she is asking for a note and something for the pain. She denies any fevers or chills. She had surgery in her low back, I think a microdiscectomy, she did not have a fusion, L4-5 last month in November. She states she had transient improvement in all of her symptoms, but as she has been going back to work everything has been getting worse, similar discomfort that she has been having off and on for months even before the surgery. Prior similar symptoms: Yes and With Prior Back Pain [facility] Medical History Alcohol use Anxiety Asthma Bipolar disorder Carpal tunnel syndrome Chronic cough Chronic pain COPD (chronic obstructive pulmonary disease) Easy bruising Hepatitis Hepatitis C Herniated cervical disc History of herniated intervertebral disc History of IBS History of stress test Hx of degenerative disc disease Injury of back Leg cramps Lumbar radicular pain MARIA INES (obstructive sleep apnea) Peptic ulcer Polysubstance abuse Schizophrenia Shortness of breath on exertion Smoker Tobacco use (Unknown) Ulnar nerve laceration Wears glasses Home Medications albuterol sulfate 90 mcg/actuation aerosol inhaler (Ventolin HFA) 1 - 2 puff inhalation Q4H PRN PRN Wheezing ##1 07/21/15 [Rx Last Taken 10/13/17] bcoaanvx-gvkjyhz-fcm-iron 18 mg-FA 400 mcg-vit K 80 mcg-hrb#244 tablet ([employer]) 1 tab PO DAILY supplement 10/16/17 [History Last Taken 10/15/17] acetaminophen 500 mg tablet 1,000 mg PO Q8H PRN Pain 07/05/21 [History Last Taken Unknown] albuterol sulfate 90 mcg/actuation aerosol inhaler (Ventolin HFA) 2 puff inhalation Q4H PRN PRN Wheezing ##1 07/05/21 [Rx Last Taken Unknown] dexamethasone 6 mg tablet 6 mg PO DAILY #7 tabs 07/05/21 [Rx Last Taken Unknown] trazodone 50 mg tablet 50 mg PO QHS 07/05/21 [History Last Taken Unknown] oxycodone-acetaminophen 5 mg-325 mg tablet 1 tab PO Q6H PRN PRN Pain 2 days #8 TABLETS 07/09/21 [Rx Last Taken Unknown] levofloxacin 750 mg tablet 750 mg PO DAILY #5 tabs 07/16/21 [Rx Last Taken Unknown] cyclobenzaprine 10 mg tablet 10 mg PO TID PRN muscle spasm #21 tabs 09/10/21 [Rx Last Taken Unknown] ibuprofen 800 mg tablet 800 mg PO TID PRN pain #30 tabs 09/10/21 [Rx Last Taken Unknown] dicyclomine 20 mg tablet 20 mg PO TID PRN abdominal cramping #14 tabs 11/09/21 [Rx Last Taken Unknown] metoclopramide HCl 10 mg tablet (Reglan) 10 mg PO Q6H PRN nausea and vomiting #14 tabs 11/09/21 [Rx Last Taken Unknown] cyclobenzaprine 10 mg tablet 10 mg PO TID PRN Muscle Spasm #20 TABLETS 01/15/22 [Rx Last Taken Unknown] oxycodone-acetaminophen 5 mg-325 mg tablet 1 tab PO Q6H PRN PRN Pain 3 days #12 TABLETS 01/15/22 [Rx Last Taken Unknown] Allergy/AdvReac Type Severity Reaction Status Date / Time hydrocodone Allergy Intermediate Hives Verified 01/15/22 19:52 Surgical History History of appendectomy History of back surgery History of back surgery History of cholecystectomy History of decompression of ulnar nerve History of lumbar laminectomy History of tubal ligation Social History Smoking Status: Current some day smoker tobacco type: cigarettes and e-cigarettes substance use type: does not use ROS ROS ED Constitutional Constitutional ED: Denies chills or fever(s) Gastrointestinal Gastrointestinal: Denies abdominal pain, constipation, fecal incontinence, nausea or vomiting Genitourinary Genitourinary ED: Reports other Details: no urinary retention ; Denies abdominal discomfort or urinary incontinence Musculoskeletal Musculoskeletal: Reports as per HPI and back pain; Denies neck pain Integumentary Denies rash or wounds Neurologic Neurologic: Denies headache(s), paresthesias or weakness EXAM Physical Exam Const Vital Signs: 01/15/22 19:49 Temperature 97.2 F L Temperature Source Temporal Pulse Rate 83 Respiratory Rate 16 Blood Pressure 128/75 H Blood Pressure Mean 92 Pulse Ox 95 Oxygen Delivery Method Room Air Positive well nourished and well developed General Appearance ED: well developed and NAD HEENT Negative for trauma or tenderness Eyes PERRL and EOMs intact bilaterally Neck full ROM and supple GI normal to inspection, nondistended, normoactive bowel sounds, soft to palpation and non-tender Back/Spine normal to inspection Lumbar Spine / Lower Back: ROM limited, paraspinal muscle tenderness right and straight leg raise negative bilaterally; Negative for lumbar spinal tenderness Extremity normal to inspection, full ROM and no pedal edema Neuro oriented x3 and no sensory deficits noted Sensorium / Orientation: alert Motor Exam: strength 5/5 throughout and clonus absent Deep Tendon Reflexes: Rt Patellar (L4): 2+, Lt Patellar (L4): 2+, Rt Ankle (S1): 2+ and Lt Ankle (S1): 2+ Deep Tendon Reflexes Back: Rt Patellar (L4): 2+, Lt Patellar (L4): 2+, Rt Ankle (S1): 2+ and Lt Ankle (S1): 2+ Plantar Reflex: Downgoing: bilateral Psych mental status grossly normal and thought process normal Skin no rashes or lesions noted and no wounds MDM MDM MDM Narrative Medical decision making narrative: Patient seems uncomfortable, but in no distress. She is neurovascularly intact distally both lower extremities, she does not have any signs or symptoms of cauda equina syndrome, nor does she have signs of an infection in her surgical site, the surgical incision is well-healed without signs of erythema or problem. I think this is probably overuse. I am giving her a work note for tonight and tomorrow, as well as a short prescription for analgesics and given injections here her will take her home she is comfortable with that plan. Discharge Plan Triage Chief Complaint: Back ED Provider: Donovan Jackson Dx/Rx/DC Orders Clinical Impression: Acute exacerbation of chronic low back pain Instructions: ED Back Pain (Acute or Chronic) Prescriptions: New cyclobenzaprine [cyclobenzaprine] 10 mg tablet 10 mg PO TID PRN (Reason: Muscle Spasm) Qty: 20 0RF oxycodone-acetaminophen [oxycodone-acetaminophen] 5-325 mg tablet 1 tab PO Q6H PRN PRN (Reason: Pain) 3 Days Qty: 12 0RF No Action albuterol sulfate [Ventolin HFA] 1 INHALER inhaler 1 - 2 puff inhalation Q4H PRN PRN (Reason: Wheezing) Qty: 1 0RF Label Comments: asthma [employer] 1 EACH tablet 1 tab PO DAILY trazodone 50 mg Tablet 50 mg PO QHS acetaminophen 500 mg tablet 1,000 mg PO Q8H PRN (Reason: Pain) dexamethasone 6 MG tablet 6 mg PO DAILY Qty: 7 0RF albuterol sulfate [Ventolin HFA] 1 INHALER inhaler 2 puff inhalation Q4H PRN PRN (Reason: Wheezing) Qty: 1 0RF oxycodone-acetaminophen [oxycodone-acetaminophen] 1 TABLET tablet 1 tab PO Q6H PRN PRN (Reason: Pain) 2 Days Qty: 8 0RF levofloxacin 750 mg tablet 750 mg PO DAILY Qty: 5 0RF ibuprofen 800 mg tablet 800 mg PO TID PRN (Reason: pain) Qty: 30 0RF cyclobenzaprine 10 mg tablet 10 mg PO TID PRN (Reason: muscle spasm) Qty: 21 0RF metoclopramide HCl [Reglan] 10 mg tablet 10 mg PO Q6H PRN (Reason: nausea and vomiting) Qty: 14 0RF dicyclomine 20 mg tablet 20 mg PO TID PRN (Reason: abdominal cramping) Qty: 14 0RF Stand Alone Forms: ED Work / School Excuse Primary Care Provider: Sobeida Berger Referrals: Sobeida Berger MD [Primary Care Provider] - 1 Week if not improving (And/or Dr. Avery) Disposition Disposition: Home, Self Care
[2022-01-15] MEDS: Ketorolac 60 MG/2 ML Vial IM (22:33)
[2022-01-15] MEDS: Orphenadrine 60 MG/2 ML Ampul IM (22:34)
[2022-01-15] MEDS: Morphine 4 MG/ML Syringe IM (22:34)
== END 2022-01-15 23:05 | disposition home or self-care (01) ==
PROVIDERS: Emergency Provider Emergency Medicine; PCP Internal Medicine; Visit Provider Emergency Medicine
DX: M54.50 Low back pain, unspecified (principal); G89.29 Other chronic pain; F17.210 Nicotine dependence, cigarettes, uncomplicated; F17.290 Nicotine dependence, other tobacco product, uncomplicated
CPT/HCPCS: 96372; 99282; A4216

== ENCOUNTER 2022-02-26 20:00 | Emergency (ER) | payer MEDICAID, SELFPAY ==
[2022-02-26 20:01] VITALS: BP 144/88; PULSE 99; RESP 18; TEMP 36.8; O2SAT 98; BMI 42.5
--- NOTE | 2022-02-26 21:58 | EDS_ITS ---
HPI HPI - URI History of Present Illness Chief Complaint: Cough Detail of Chief Complaint: 3-day history. Informant: patient Onset/Context/Timing Onset: Days Context: Gradual Onset Timing: Continuous Current Severity: Mild Maximum Severity: Mild Associated Symptoms Associated Symptoms: Positive for Nasal Congestion, Myalgias, Nausea, Vomiting, Shortness of Breath and Nonproductive cough; Negative for Hemoptysis or Productive Cough Narrative Narrative: 46-year-old female history of COPD. States she has had nonproductive cough for last 3 days to the point where it makes her have nausea and vomiting from all the coughing. States her ribs are sore from coughing. Denies any hemoptysis. Prior similar symptoms: Yes Recent Illness/Hospitalization: No ROS ROS ED ROS Narrative Cough. Shortness of breath. Wheezing. Nausea and vomiting from coughing. Review of Systems ROS Unobtainable: Denies due to encephalopathy Constitutional Constitutional ED: Denies chills or fever(s) Eyes Eyes: Denies blurry vision ENT ENT ED: Reports ear pain, rhinorrhea and sore throat Cardiovascular Cardiovascular: Denies chest pain, palpitations or racing heartbeat Respiratory/Chest Respiratory/Chest: Reports cough and dyspnea Gastrointestinal Gastrointestinal: Reports nausea and vomiting; Denies abdominal pain Genitourinary Genitourinary ED: Denies dysuria or hematuria Musculoskeletal Musculoskeletal: Denies arthralgias Integumentary Denies abscess Neurologic Neurologic: Denies headache(s) Psychiatric Psychiatric: Denies anxiety Endocrine Endocrinology: Denies cold intolerance Hematologic/Lymphatic Hematologic/Lymphatic: Denies easy bleeding Allergic/Immunologic Allergic/Immunologic ED: Denies mouth swelling or tongue swelling PFSH PFSH Medical History Alcohol use Anxiety Asthma Bipolar disorder Carpal tunnel syndrome Chronic cough Chronic pain COPD (chronic obstructive pulmonary disease) Easy bruising Hepatitis Hepatitis C Herniated cervical disc History of herniated intervertebral disc History of IBS History of stress test Hx of degenerative disc disease Injury of back Leg cramps Lumbar radicular pain MARIA INES (obstructive sleep apnea) Peptic ulcer Polysubstance abuse Schizophrenia Shortness of breath on exertion Smoker Tobacco use (Unknown) Ulnar nerve laceration Wears glasses Home Medications albuterol sulfate 90 mcg/actuation aerosol inhaler (Ventolin HFA) 1 - 2 puff inhalation Q4H PRN PRN Wheezing ##1 07/21/15 [Rx Last Taken 10/13/17] xpvapztm-bzbpbfl-ckp-iron 18 mg-FA 400 mcg-vit K 80 mcg-hrb#244 tablet ([employer]) 1 tab PO DAILY supplement 10/16/17 [History Last Taken 10/15/17] acetaminophen 500 mg tablet 1,000 mg PO Q8H PRN Pain 07/05/21 [History Last Taken Unknown] albuterol sulfate 90 mcg/actuation aerosol inhaler (Ventolin HFA) 2 puff inhala tion Q4H PRN PRN Wheezing ##1 07/05/21 [Rx Last Taken Unknown] dexamethasone 6 mg tablet 6 mg PO DAILY #7 tabs 07/05/21 [Rx Last Taken Unknown] trazodone 50 mg tablet 50 mg PO QHS 07/05/21 [History Last Taken Unknown] oxycodone-acetaminophen 5 mg-325 mg tablet 1 tab PO Q6H PRN PRN Pain 2 days #8 TABLETS 07/09/21 [Rx Last Taken Unknown] levofloxacin 750 mg tablet 750 mg PO DAILY #5 tabs 07/16/21 [Rx Last Taken Unknown] cyclobenzaprine 10 mg tablet 10 mg PO TID PRN muscle spasm #21 tabs 09/10/21 [Rx Last Taken Unknown] ibuprofen 800 mg tablet 800 mg PO TID PRN pain #30 tabs 09/10/21 [Rx Last Taken Unknown] dicyclomine 20 mg tablet 20 mg PO TID PRN abdominal cramping #14 tabs 11/09/21 [Rx Last Taken Unknown] metoclopramide HCl 10 mg tablet (Reglan) 10 mg PO Q6H PRN nausea and vomiting #14 tabs 11/09/21 [Rx Last Taken Unknown] cyclobenzaprine 10 mg tablet 10 mg PO TID PRN Muscle Spasm #20 TABLETS 01/15/22 [Rx Last Taken Unknown] oxycodone-acetaminophen 5 mg-325 mg tablet 1 tab PO Q6H PRN PRN Pain 3 days #12 TABLETS 01/15/22 [Rx Last Taken Unknown] albuterol sulfate 90 mcg/actuation aerosol inhaler 2 puff inhalation Q4H PRN PRN Wheezing 7 days #6.7 grams 02/26/22 [Rx Last Taken Unknown] prednisone 20 mg tablet 40 mg PO DAILY 7 days #14 tabs 02/26/22 [Rx Last Taken Unknown] Allergy/AdvReac Type Severity Reaction Status Date / Time hydrocodone Allergy Intermediate Hives Verified 02/26/22 20:03 Surgical History History of appendectomy History of back surgery History of back surgery History of cholecystectomy History of decompression of ulnar nerve History of lumbar laminectomy History of tubal ligation Social History Smoking Status: Current some day smoker tobacco type: cigarettes and e- cigarettes substance use type: does not use EXAM Physical Exam Narrative Exam Narrative: 46-year female no acute distress. Vital signs stable afebrile. Pulse ox 98% on room air no hypoxia. H EENT exam unremarkable. Moist Riis membranes. No exudate. Neck nontender no JVD. No lymphadenopathy. Lungs dry cough. Few scattered expiratory wheezes. No rales or rhonchi. Equal symmetrical. Heart regular rate and rhythm rate about 100 no murmur. Abdomen soft nontender normal bowel sounds no peritoneal signs. Moving all 4 extremities. Calves are nontender without edema or cords. Neurologic exam normal. Const Vital Signs: 02/26/22 20:01 02/26/22 22:16 02/26/22 22:47 Temperature 98.3 F Temperature Source Temporal Pulse Rate 99 97 Respiratory Rate 18 16 Respiratory Effort Normal Non-Labored Respiratory Depth Normal Respiratory Pattern Normal Normal Blood Pressure 144/88 H Blood Pressure Mean 106 Pulse Ox 98 Oxygen Delivery Method Room Air Positive well nourished, well developed and obese; Negative for cachectic or contractures General Appearance ED: well developed and NAD; Negative for cachectic, contractures, cyanotic, diaphoretic or pallor Nutritional Appearance: obese; Negative for cachectic HEENT Reports moist mucous membranes; Denies dry mucous membranes normocephalic and atraumatic; Negative for scalp tenderness Face and Sinus: Negative for sinus tenderness or maxillary instability Mouth ED: No dry mucous membranes Mouth: No dry mucous membranes Throat: posterior oropharynx normal; Negative for tonsils abnormal or posterior oropharynx abnormal Eyes PERRL and EOMs intact bilaterally General Eye ED: Negative for pale conjunctiva or scleral icterus Neck no lymphadenopathy, supple, no meningeal signs and no JVD General: Negative for anterior neck swelling or lymphadenopathy Resp normal respiratory effort and No clear to auscultation bilaterally Effort and Inspection: Negative for retractions Auscultation: wheezes; Negative for rales or rhonchi Cardio S1 normal heart sound, S2 normal heart sound and no murmurs Rate: regular rate Rhythm: regular rhythm GI non-tender, non-distended and no masses Inspection: Negative for abdominal distention Auscultation: normoactive bowel sounds Palpation: soft; Negative for tender or guarding Back/Spine no CVA tenderness and normal ROM General Back: Negative for CVA tenderness Cervical Spine: Negative for cervical spine tenderness Thoracic Spine / Upper Back: Negative for thoracic spinal tenderness Lumbar Spine / Lower Back: Negative for lumbar spinal tenderness Sacrum: Negative for tenderness Extremity normal to inspection and full ROM General Extremety ED: Negative for cyanosis or tenderness General Extremity: Negative for cyanosis Neuro oriented x3 and CN's II-XII intact bilaterally Sensorium / Orientation: alert, oriented to person, oriented to place and oriented to time; Negative for orientation impaired, lethargic or stuporous Motor Exam: strength 5/5 throughout Psych mental status grossly normal Appearance: Negative for other Attitude: No agitated Mood & Affect: Negative for depressed, anxious or tearful Skin General Skin Exam: Negative for jaundice or pallor Lesions: no lesions Rashes: no rashes Trauma: Negative for abrasion MDM MDM MDM Narrative Medical decision making narrative: 46-year-old female URI symptoms. COVID-negative. Suspect viral syndrome. Zofran for nausea. Prednisone for wheezing and DuoNeb aerosol treatment. Chest x-ray being obtained. Lab Data Attestation: I reviewed the patient's lab results. Lab results narrative: Rapid COVID antigen negative. Influenza negative. Radiography Diagnostic Testing: Clinical Impression(s) from Imaging Studies Chest X-Ray 02/26/22 22:37 IMPRESSION: No acute abnormal cardiopulmonary finding. Electronically Signed: David Lane MD at 22:55 EST , Chest x-ray, portable, single view interpreted by self the radiologist shows no acute abnormality. Normal cardiac silhouette. No pneumonia. Discharge Plan Triage Chief Complaint: Cough ED Provider: Stanton Car Dx/Rx/DC Orders Clinical Impression: Viral syndrome, Wheezing Instructions: ED Viral Syndrome (Adult) Prescriptions: New prednisone 20 mg tablet 40 mg PO DAILY 7 Days Qty: 14 0RF albuterol sulfate 90 mcg/actuation HFA aerosol inhaler 2 puff inhalation Q4H PRN MDD 6 times per day PRN (Reason: Wheezing) 7 Days Qty: 6.7 0RF No Action albuterol sulfate [Ventolin HFA] 1 INHALER inhaler 1 - 2 puff inhalation Q4H PRN PRN (Reason: Wheezing) Qty: 1 0RF Label Comments: asthma [employer] 1 EACH tablet 1 tab PO DAILY trazodone 50 mg Tablet 50 mg PO QHS acetaminophen 500 mg tablet 1,000 mg PO Q8H PRN (Reason: Pain) dexamethasone 6 MG tablet 6 mg PO DAILY Qty: 7 0RF albuterol sulfate [Ventolin HFA] 1 INHALER inhaler 2 puff inhalation Q4H PRN PRN (Reason: Wheezing) Qty: 1 0RF oxycodone-acetaminophen [oxycodone-acetaminophen] 1 TABLET tablet 1 tab PO Q6H PRN PRN (Reason: Pain) 2 Days Qty: 8 0RF levofloxacin 750 mg tablet 750 mg PO DAILY Qty: 5 0RF ibuprofen 800 mg tablet 800 mg PO TID PRN (Reason: pain) Qty: 30 0RF cyclobenzaprine 10 mg tablet 10 mg PO TID PRN (Reason: muscle spasm) Qty: 21 0RF metoclopramide HCl [Reglan] 10 mg tablet 10 mg PO Q6H PRN (Reason: nausea and vomiting) Qty: 14 0RF dicyclomine 20 mg tablet 20 mg PO TID PRN (Reason: abdominal cramping) Qty: 14 0RF cyclobenzaprine [cyclobenzaprine] 10 mg tablet 10 mg PO TID PRN (Reason: Muscle Spasm) Qty: 20 0RF oxycodone-acetaminophen [oxycodone-acetaminophen] 5-325 mg tablet 1 tab PO Q6H PRN PRN (Reason: Pain) 3 Days Qty: 12 0RF Primary Care Provider: Sobeida Berger Referrals: Sobeida Berger MD [Primary Care Provider] - 1 Week if not improving Activity Restrictions/Additional Instructions: Plenty of fluids and rest. Tylenol and Motrin for fever and body aches. Prednisone daily for the wheezing. Inhaler 2 puffs every 4 hours as needed for wheezing. Follow-up with your doctor if not improving or return if worse. Disposition Disposition: Home, Self Care Discharge Date/Time: 02/26/22 23:17
[2022-02-26] MEDS: predniSONE 20 MG Tablet 60 MG PO (22:13)
[2022-02-26] MEDS: Ondansetron ODT 4 MG Tablet PO (22:14)
--- NOTE | 2022-02-26 22:37 | RAD_ITS ---
STUDY: X-RAY CHEST REASON FOR EXAM: Female, 46 years old. Cough TECHNIQUE: Portable, upright, AP chest x-ray COMPARISON: 07/16/2021 FINDINGS: The lungs are clear and expanded. There is no demonstrated pleural abnormality. Normal size heart. Normal mediastinum and violetta. Normal visualized pulmonary arteries. Normal visualized aortic arch and descending thoracic aorta. There is no demonstrated abnormality of the visualized soft tissue structures of the upper abdomen. RAD/Chest 1 View (Portable) IMPRESSION: No acute abnormal cardiopulmonary finding. Electronically Signed: David Lane MD at 22:55 EST ,
[2022-02-26] MEDS: Ipratropium/Albuterol Sulfate 3 ML AMPUL.NEB INHALATION (22:43)
[2022-02-26 22:47] VITALS: PULSE 97; RESP 16
== END 2022-02-26 23:17 | disposition home or self-care (01) ==
PROVIDERS: Emergency Provider Emergency Medicine; PCP Internal Medicine; Visit Provider Emergency Medicine
DX: B34.9 Viral infection, unspecified (principal); J44.9 Chronic obstructive pulmonary disease, unspecified; R11.2 Nausea with vomiting, unspecified; F17.210 Nicotine dependence, cigarettes, uncomplicated; R06.02 Shortness of breath; Z79.52 Long term (current) use of systemic steroids; F17.290 Nicotine dependence, other tobacco product, uncomplicated; E66.9 Obesity, unspecified; Z20.822 Contact with and (suspected) exposure to COVID-19
CPT/HCPCS: 71045; 87804; 87811; 94640; 99283

== ENCOUNTER 2022-05-07 20:49 | Emergency (ER) | payer MEDICAID, SELFPAY ==
[2022-05-07 20:49] VITALS: BP 172/115; PULSE 100; RESP 18; TEMP 36.2; O2SAT 98; BMI 41.8
[2022-05-07 21:20] LABS: Absolute Lymphocyte Count 3.47 X10^3/uL (0.83-4.51); Absolute Neutrophil Count 10.9 X10^3/uL (2.0-7.7); Basophil# 0.04 X10^3/uL; Basophil% 0.3 % (0-1); Eosinophil# 0.11 X10^3/uL; Eosinophils% 0.7 % (0-5); Hematocrit 41.8 % (37-47); Hemoglobin 13.1 g/dL (12.0-15.0); Lymphocyte # 3.47 X10^3/ul (0.83-4.51); Lymphocyte % 22.9 % (19-41); Mean Corp Hgb Conc 31.3 g/dL (32-36); Mean Corpuscular Hgb 28.1 pg (27.0-32.0); Mean Corpuscular Volume 89.7 fL (81-99); Mean Platelet Vol. 9.8 fl (6.2-12.0); Monocyte# 0.58 X10^3/uL; Monocyte% 3.8 % (0-10); NRBC Flagged by Analyzer 0 % (0-5); Neutrophil # 10.89 X10^3/uL (2.7-7.7); Neutrophil % 71.8 % (47-70); Platelet Count 331 K/mm3 (150-450); RBC Distribution Width SD 42.5 fl (35.1-43.9); Red Blood Count 4.66 M/mm3 (4.2-5.4); White Blood Count 15.2 K/mm3 (4.4-11.0)
--- NOTE | 2022-05-07 21:27 | RAD_ITS ---
EXAM: XR CHEST, 1 VIEW CLINICAL INDICATION: chest pain TECHNIQUE: Frontal view of the chest. This report was created using [employer] report generation technology. COMPARISON: 02.26.22 FINDINGS: LUNGS AND PLEURAL SPACES: Unremarkable. No consolidation or edema. No pneumothorax. No effusion. HEART: Unremarkable. Cardiac silhouette not enlarged. MEDIASTINUM: Central airways and mediastinal contour are unremarkable. BONES/JOINTS: Unremarkable. SOFT TISSUES: Unremarkable. RAD/Chest 1 View (Portable) IMPRESSION: No radiographic evidence of acute cardiopulmonary disease. Electronically Signed: Farhan Medrano MD at 21:46 EST ,
[2022-05-07 21:37] LABS: Anion Gap 9 (5-15); BUN 11 mg/dL (7-18); BUN/Creat Ratio 16.9 RATIO (10-20); Calcium,Total 9.5 mg/dL (8.5-10.1); Chloride 104 mmol/L (98-107); Creatinine, Serum 0.65 mg/dL (0.55-1.02); EST Glomerular Filtration Rate 103 mL/min (>60); Est Glom Filt Rate - Afr Amer 125 mL/min (>60); Estimated Creatinine Clearance 88.51 ml/min; Glucose 79 mg/dL (74-106); Potassium 3.5 mmol/L (3.5-5.1); Sodium Level 140 mmol/L (136-145); Troponin-I HS 5 pg/mL (3.0-54.0)
[2022-05-07 21:49] VITALS: BP 129/95; PULSE 93; RESP 15; O2SAT 95; O2SAT 96
[2022-05-07] MEDS: Aspirin 81 MG TAB.CHEW 324 MG PO (21:56)
[2022-05-07 22:00] VITALS: BP 147/79; PULSE 78; RESP 19; O2SAT 96
--- NOTE | 2022-05-07 22:44 | ED.VIS.CHEST ---
HPI History of Present Illness Chief Complaint: Chest Pain Informant: patient Onset/Context/Timing Onset: Yesterday Activity at onset: gradual Timing: Continuous Quality: Positive for Sharp Location: Right Chest Worsened By: Movement of Arm, Movement of Torso and - (Bending) Relieved By: Rest Associated Symptoms: Positive for Nausea, Vomiting, Diaphoresis, Dyspnea, Cough, Lightheadedness and Palpitations; Negative for Fever or Acid Reflux Narrative Narrative: Patient presents with chest pain that began yesterday. Patient states it is gradually getting worse. Patient states it comes and goes. Patient describes pain as sharp. Patient states pain is localized to the right side of her chest. Patient states it is worse with movement of her arms and with bending forward. Patient states it is better with rest. Patient admits to some mild cough and shortness of breath. Patient also admits to some lightheadedness, nausea, and vomiting. CVD Risk Factors: Positive for Family History 1' </=55; Negative for Hypertension, Diabetes, Hypercholesterolemia or Smoking PE Risk Factors: Negative for Recent Travel/Surgery, Recent Immobilization, Prior DVT or PE, Cancer or OCP + Smoking + >/=35 PFSH PFSH Medical History Alcohol use Anxiety Asthma Bipolar disorder Carpal tunnel syndrome Chronic cough Chronic pain COPD (chronic obstructive pulmonary disease) Easy bruising Hepatitis Hepatitis C Herniated cervical disc History of herniated intervertebral disc History of IBS History of stress test Hx of degenerative disc disease Injury of back Leg cramps Lumbar radicular pain MARIA INES (obstructive sleep apnea) Peptic ulcer Polysubstance abuse Schizophrenia Shortness of breath on exertion Smoker Tobacco use (Unknown) Ulnar nerve laceration Wears glasses Home Medications albuterol sulfate 90 mcg/actuation aerosol inhaler (Ventolin HFA) 1 - 2 puff inhalation Q4H PRN PRN Wheezing ##1 07/21/15 [Rx Last Taken 10/13/17] eofnqydr-nxwzfwp-vwk-iron 18 mg-FA 400 mcg-vit K 80 mcg-hrb#244 tablet ([employer]) 1 tab PO DAILY supplement 10/16/17 [History Last Taken 10/15/17] acetaminophen 500 mg tablet 1,000 mg PO Q8H PRN Pain 07/05/21 [History Last Taken Unknown] albuterol sulfate 90 mcg/actuation aerosol inhaler (Ventolin HFA) 2 puff inhalation Q4H PRN PRN Wheezing ##1 07/05/21 [Rx Last Taken Unknown] dexamethasone 6 mg tablet 6 mg PO DAILY #7 tabs 07/05/21 [Rx Last Taken Unknown] trazodone 50 mg tablet 50 mg PO QHS 07/05/21 [History Last Taken Unknown] oxycodone-acetaminophen 5 mg-325 mg tablet 1 tab PO Q6H PRN PRN Pain 2 days #8 TABLETS 07/09/21 [Rx Last Taken Unknown] levofloxacin 750 mg tablet 750 mg PO DAILY #5 tabs 07/16/21 [Rx Last Taken Unknown] cyclobenzaprine 10 mg tablet 10 mg PO TID PRN muscle spasm #21 tabs 09/10/21 [Rx Last Taken Unknown] ibuprofen 800 mg tablet 800 mg PO TID PRN pain #30 tabs 09/10/21 [Rx Last Taken Unknown] dicyclomine 20 mg tablet 20 mg PO TID PRN abdominal cramping #14 tabs 11/09/21 [Rx Last Taken Unknown] metoclopramide HCl 10 mg tablet (Reglan) 10 mg PO Q6H PRN nausea and vomiting #14 tabs 11/09/21 [Rx Last Taken Unknown] cyclobenzaprine 10 mg tablet 10 mg PO TID PRN Muscle Spasm #20 TABLETS 01/15/22 [Rx Last Taken Unknown] oxycodone-acetaminophen 5 mg-325 mg tablet 1 tab PO Q6H PRN PRN Pain 3 days #12 TABLETS 01/15/22 [Rx Last Taken Unknown] albuterol sulfate 90 mcg/actuation aerosol inhaler 2 puff inhalation Q4H PRN PRN Wheezing 7 days #6.7 grams 02/26/22 [Rx Last Taken Unknown] prednisone 20 mg tablet 40 mg PO DAILY 7 days #14 tabs 02/26/22 [Rx Last Taken Unknown] Allergy/AdvReac Type Severity Reaction Status Date / Time hydrocodone Allergy Intermediate Hives Verified 05/07/22 20:51 Surgical History History of appendectomy History of back surgery History of back surgery History of cholecystectomy History of decompression of ulnar nerve History of lumbar laminectomy History of tubal ligation Social History Smoking Status: Current some day smoker tobacco type: cigarettes and e-cigarettes substance use type: does not use ROS ROS ED Constitutional Constitutional ED: Reports sweats; Denies chills or fever(s) Eyes Eyes: Denies blurry vision or change in vision ENT ENT ED: Denies rhinorrhea or sore throat Cardiovascular Cardiovascular: Reports chest pain; Denies palpitations Respiratory/Chest Respiratory/Chest: Reports cough and dyspnea Gastrointestinal Gastrointestinal: Reports nausea and vomiting; Denies abdominal pain Genitourinary Genitourinary ED: Denies dysuria or hematuria Musculoskeletal Musculoskeletal: Reports back pain; Denies neck pain Integumentary Denies abscess or rash Neurologic Neurologic: Reports headache(s); Denies weakness Allergic/Immunologic Allergic/Immunologic ED: Denies mouth swelling or urticaria EXAM Physical Exam Const Vital Signs: 05/07/22 20:49 05/07/22 21:49 05/07/22 21:49 Temperature 97.2 F L Temperature Source Temporal Pulse Rate 100 93 Respiratory Rate 18 15 Blood Pressure 172/115 H 129/95 H Blood Pressure Mean 134 106 Pulse Ox 98 95 96 Oxygen Delivery Method Room Air Room Air Room Air 05/07/22 21:47 05/07/22 22:00 Temperature Temperature Source Pulse Rate 78 Respiratory Rate 19 H Blood Pressure 147/79 H Blood Pressure Mean 101 Pulse Ox 96 Oxygen Delivery Method Room Air Room Air Positive well nourished, well developed and obese General Appearance ED: well developed and NAD Nutritional Appearance: obese morbidly obese HEENT normocephalic and atraumatic Eyes PERRL and EOMs intact bilaterally Neck supple and no JVD Chest Wall Chest: tenderness pectoral muscle right and costal cartilage right Resp normal respiratory effort and clear to auscultation bilaterally Effort and Inspection: Negative for respiratory distress Cardio regular rate and regular rhythm GI normal to inspection, nondistended, normoactive bowel sounds, soft to palpation, non-tender and non-distended Extremity normal to inspection General Extremety ED: Negative for edema or tenderness General Extremity: Negative for edema Neuro oriented x3, CN's II-XII intact bilaterally and no sensory deficits noted Sensorium / Orientation: awake and alert Motor Exam: strength 5/5 throughout Psych mental status grossly normal Heart Score History: Slightly/Non-Suspicious ECG: Nonspecific Repolarization Age: >45 - <65 years Risk Factors: 1 or 2 Risk Factors Troponin: </= Normal Limit Score: 3 MDM MDM MDM Narrative Medical decision making narrative: Differential diagnosis includes cardiac ischemia, cardiac dysrhythmia, musculoskeletal chest pain, pneumonia, pneumothorax, and viral infection. EKG will be obtained to assess for cardiac dysrhythmia and cardiac ischemia. Chest x-ray will be obtained to assess for pneumonia, pneumothorax, and rib fracture. CBC will be obtained to assess for leukocytosis and anemia. Basic metabolic profile will be obtained to assess for electrolyte abnormality and renal function. High-sensitivity troponin will be obtained to assess for cardiac ischemia. Since her symptoms have been constant since yesterday evening, I do not feel a 2-hour repeat high-sensitivity troponin will be of any added benefit. Lab Data Lab results narrative: CBC was reviewed. There is a mild leukocytosis of 15.2. The remainder is within normal limits. Basic metabolic profile was reviewed and was within normal limits. High-sensitivity troponin was reviewed and was normal. Labs: Laboratory Results - last 24 hr 05/07/22 05/07/22 21:00 21:00 WBC 15.2 H RBC 4.66 Hgb 13.1 Hct 41.8 MCV 89.7 MCH 28.1 MCHC 31.3 L RDW Std Deviation 42.5 RDW Coeff of Bianca 13.0 Plt Count 331 MPV 9.8 Immature Gran % (Auto) 0.500 Neut % (Auto) 71.8 H Lymph % (Auto) 22.9 Hardy % (Auto) 3.8 Eos % (Auto) 0.7 Baso % (Auto) 0.3 Absolute Neuts (auto) 10.9 H Absolute Lymphs (auto) 3.47 Nucleated RBC % 0 Sodium 140 Potassium 3.5 Chloride 104 Carbon Dioxide 27.0 Anion Gap 9 BUN 11 Creatinine 0.65 Estim Creat Clear Calc 88.51 Est GFR (MDRD) Af Amer 125 Est GFR (MDRD) Non-Af 103 BUN/Creatinine Ratio 16.9 Glucose 79 Calcium 9.5 Troponin I High Sens 5 Radiography Chest X-Ray - ED: 1 View, Read by ED Physician, Read by Radiologist and No Acute Disease Diagnostic Testing: Clinical Impression(s) from Imaging Studies Chest X-Ray 05/07/22 21:27 IMPRESSION: No radiographic evidence of acute cardiopulmonary disease. Electronically Signed: Farhan Medrano MD at 21:46 EST Reading Location ID and State: [facility] / [place] , Service support , Portable 1 view chest x-ray was obtained. On my independent interpretation, lung lakhani are clear. There is normal cardiac silhouette. Bony thorax is normal. There is no acute process noted. Radiologist also interpreted the x-ray and agrees. EKG Initial EKG: Attestation: I personally reviewed and interpreted this EKG as follows: Interpretation: Sinus Rhythm (83) and Non-Specific ST Changes Comments: EKG was obtained. On my interpretation, it showed a normal sinus rhythm with a rate of 83. PA interval, QRS interval, and QTc intervals were all normal. There is right axis deviation at 145. There are nonspecific ST-T wave changes. There is a left posterior fascicular block. Prior EKG tracings: available for review Prior: Unchanged (07/16/2021) Treatment and Re-Evaluation Narrative: Patient was given aspirin here. Patient was advised of her findings. Patient still having reproducible chest pain. Patient was given a dose of Toradol here. Patient was instructed to take Tylenol or ibuprofen as needed for pain. Patient was instructed to limit her lifting and pulling at work. Patient was given a note for this. Patient was instructed to follow-up with her primary care physician in 5 to 7 days. Patient understood and was agreeable with the plan. All questions were answered. Discharge Plan Triage Chief Complaint: Chest Pain ED Provider: Brayan Guzmán Dx/Rx/DC Orders Clinical Impression: Chest wall muscle strain, Morbid obesity with BMI of 40.0-44.9, adult Instructions: ED Chest Wall Strain Prescriptions: No Action albuterol sulfate [Ventolin HFA] 1 INHALER inhaler 1 - 2 puff inhalation Q4H PRN PRN (Reason: Wheezing) Qty: 1 0RF Label Comments: asthma [employer] 1 EACH tablet 1 tab PO DAILY trazodone 50 mg Tablet 50 mg PO QHS acetaminophen 500 mg tablet 1,000 mg PO Q8H PRN (Reason: Pain) dexamethasone 6 MG tablet 6 mg PO DAILY Qty: 7 0RF albuterol sulfate [Ventolin HFA] 1 INHALER inhaler 2 puff inhalation Q4H PRN PRN (Reason: Wheezing) Qty: 1 0RF oxycodone-acetaminophen [oxycodone-acetaminophen] 1 TABLET tablet 1 tab PO Q6H PRN PRN (Reason: Pain) 2 Days Qty: 8 0RF levofloxacin 750 mg tablet 750 mg PO DAILY Qty: 5 0RF ibuprofen 800 mg tablet 800 mg PO TID PRN (Reason: pain) Qty: 30 0RF cyclobenzaprine 10 mg tablet 10 mg PO TID PRN (Reason: muscle spasm) Qty: 21 0RF metoclopramide HCl [Reglan] 10 mg tablet 10 mg PO Q6H PRN (Reason: nausea and vomiting) Qty: 14 0RF dicyclomine 20 mg tablet 20 mg PO TID PRN (Reason: abdominal cramping) Qty: 14 0RF cyclobenzaprine [cyclobenzaprine] 10 mg tablet 10 mg PO TID PRN (Reason: Muscle Spasm) Qty: 20 0RF oxycodone-acetaminophen [oxycodone-acetaminophen] 5-325 mg tablet 1 tab PO Q6H PRN PRN (Reason: Pain) 3 Days Qty: 12 0RF prednisone 20 mg tablet 40 mg PO DAILY 7 Days Qty: 14 0RF albuterol sulfate 90 mcg/actuation HFA aerosol inhaler 2 puff inhalation Q4H PRN MDD 6 times per day PRN (Reason: Wheezing) 7 Days Qty: 6.7 0RF Stand Alone Forms: Work Status Form Primary Care Provider: Sobeida Berger Referrals: Sobeida Berger MD [Primary Care Provider] - Disposition Disposition: Home, Self Care
[2022-05-07] MEDS: Ketorolac 30 MG/ML Syringe 15 MG IM (22:45)
[2022-05-07 23:08] VITALS: BP 122/83; PULSE 77; RESP 19; O2SAT 96
== END 2022-05-07 23:10 | disposition home or self-care (01) ==
PROVIDERS: Emergency Provider Emergency Medicine; PCP Internal Medicine; Visit Provider Emergency Medicine
DX: S29.011A Strain of muscle and tendon of front wall of thorax, initial encounter (principal); E66.01 Morbid (severe) obesity due to excess calories; Z68.41 Body mass index [BMI] 40.0-44.9, adult; F17.210 Nicotine dependence, cigarettes, uncomplicated; G47.33 Obstructive sleep apnea (adult) (pediatric); X58.XXXA Exposure to other specified factors, initial encounter
CPT/HCPCS: 71045; 80048; 84484; 85025; 93005; 96372; 99283

== ENCOUNTER 2022-08-20 10:15 | Emergency (ER) | payer MEDICAID, SELFPAY ==
[2022-08-20 10:16] VITALS: BP 135/95; PULSE 85; RESP 16; TEMP 36.3; O2SAT 97
[2022-08-20 10:24] VITALS: BMI 45.5
--- NOTE | 2022-08-20 10:42 | EDS_ITS ---
HPI History of Present Illness Chief Complaint: Back Informant: patient Narrative Narrative: Patient complains of lower back pain with intermittent numbness of her right foot area. Patient has a history of back pain. She had L3-4 disc and stabilization done in November 2020. Prior to that she had a lot of numbness tingling and even occasional weakness in the right leg. Those symptoms really resolved after surgery or at least significantly improved. She notes that over the last 1 to 2 months she has had more back pain with occasional numbness tingling down in her right foot and occasionally even the right anterior thigh area. It got exacerbated over the weekend because she has been working a lot more. She works as an [email or web address]. She did a 36-hour shift. There is evidently an individual with cerebral palsy that falls out of her wheelchair frequently. She weighs over 200 pounds. This patient had to lift that patient into the wheelchair multiple times. She states she feels better bent over. She is currently laying in bed with the legs propped up and that is a good position for her. She has no bowel or bladder dysfunction whatsoever. She does complain of intermittent numbness in the right foot area. The right inguinal area numbness is really been there for a month or so. That is not different. No fevers or chills. No recent infections. No acute trauma or fall. [facility] Medical History Alcohol use Anxiety Asthma Bipolar disorder Carpal tunnel syndrome Chronic cough Chronic pain COPD (chronic obstructive pulmonary disease) Easy bruising Hepatitis Hepatitis C Herniated cervical disc History of herniated intervertebral disc History of IBS History of stress test Hx of degenerative disc disease Injury of back Leg cramps Lumbar radicular pain MARIA INES (obstructive sleep apnea) Peptic ulcer Polysubstance abuse Schizoaffective disorder, bipolar type Schizophrenia Shortness of breath on exertion Smoker Tobacco use (Unknown) Ulnar nerve laceration Wears glasses Home Medications cdfbfqfp-oiofyph-dmr-iron 18 mg-FA 400 mcg-vit K 80 mcg-hrb#244 tablet ([employer]) 1 tab PO DAILY supplement 10/16/17 [History Last Taken 10/15/17] acetaminophen 500 mg tablet 1,000 mg PO Q8H PRN Pain 07/05/21 [History Last Taken Unknown] albuterol sulfate 90 mcg/actuation aerosol inhaler (Ventolin HFA) 2 puff inhalation Q4H PRN PRN Wheezing ##1 07/05/21 [Rx Last Taken Unknown] ibuprofen 800 mg tablet 800 mg PO TID PRN pain #30 tabs 09/10/21 [Rx Last Taken Unknown] melatonin 10 mg capsule 10 mg PO HS PRN 05/15/22 [History Last Taken Unknown] suvorexant 5 mg tablet (Belsomra) 5 mg PO QHS sleep #30 tabs 06/10/22 [Rx Last Taken Unknown] aripiprazole 10 mg tablet 10 mg PO QHS #30 tabs 07/29/22 [Rx Last Taken Unknown] paroxetine HCl 20 mg tablet (Paxil) 20 mg PO DAILY #30 tabs 07/29/22 [Rx Last Taken Unknown] cyclobenzaprine 10 mg tablet 10 mg PO TID PRN Muscle Spasm #20 TABLETS 08/20/22 [Rx Last Taken Unknown] oxycodone-acetaminophen 5 mg-325 mg tablet 1 tab PO Q6H PRN PRN Pain 3 days #12 TABLETS 08/20/22 [Rx Last Taken Unknown] prednisone 20 mg tablet 60 mg PO DAILY #15 TABLETS 08/20/22 [Rx Last Taken Unknown] Allergy/AdvReac Type Severity Reaction Status Date / Time hydrocodone Allergy Intermediate Hives Verified 08/20/22 10:18 Surgical History History of appendectomy History of back surgery History of back surgery History of cholecystectomy History of decompression of ulnar nerve History of lumbar laminectomy History of tubal ligation Social History Smoking Status: Current some day smoker tobacco type: cigarettes and e- cigarettes substance use type: does not use ROS ROS ED ROS Narrative A complete review of systems was performed and is negative except as documented in the history of present illness. Some specific details below. Constitutional: No recent fevers or chills. No rigors. Patient has not generally felt ill. EYE: No discharge, visual complaints, or pain. ENT: No sinus pressure or pain. No nasal discharge. CV: No chest pain, pressure or aching. No palpitations or irregular beats. Patient has not been presyncopal or syncopal. Respiratory: No trouble breathing. No cough. No wheezing. No sputum production. No pain with breathing. GI: No abdominal pain. No nausea vomiting diarrhea. No blood in stool. No loss of bowel control. No history of AAA. She has had prior appendectomy and cholecystectomy. Moving bowels are normal for her. : No frequency dysuria or hematuria. No incontinence or urinary retention. Urinating seems very normal to her. Musculoskeletal: No recent trauma. No swelling. Please see history of present illness. Skin: No rash. No diaphoresis. No vesicles. Neuro: No weakness but she does have some waxing and waning right-sided numbness. She gets intermittent numbness of her right foot. She has a somewhat constant numb feeling in the right upper thigh below the inguinal ligament region. Please see history of present illness also. Endocrine: No polyuria or polydipsia. EXAM Physical Exam Narrative Exam Narrative: CONSTITUTIONAL: Patient is nontoxic in appearance. The patient looks comfortable. Work of breathing looks normal. HEENT: No notable trauma. Mucous membranes moist. No indication of dental infection. EYES: No conjunctival injection. No pallor. NECK: No meningismus. No JVD. CARDIOVASCULAR: Regular rate. Regular rhythm. No notable murmur. No JVD. RESPIRATORY: No respiratory distress. Breathing is unlabored. No wheezes. No rhonchi. No rales. No pain with a deep breath. GASTROINTESTINAL: Abdomen is obese but it is not distended. Bowel sounds are nor mal. No tenderness. No guarding. No rebound. No palpable mass. No bruit. GENITOURINARY: No tenderness over the bladder. No CVA tenderness. MUSCULOSKELETAL: Atraumatic. No peripheral edema. No cord. No tenderness along the deep venous system. No asymmetry. Distal pulses are intact. She does have well-healed surgical scar in her back. She has right-sided paraspinal tenderness and some slight tenderness in the right buttock/sciatic notch area. No rashes noted. NEUROLOGICAL: Patient is alert and oriented. No focal deficit noted. Patient can stand on toes and heels and do shallow squats. She is able to get herself up out of bed. It is sore when she does this though. She can feel all the way down her leg and in her feet but it does feel little different for her on the dorsal and dorsal lateral aspect of the right foot. But sensation is still intact. Patellar reflex is about 1+ on the right but 2+ on the left. This is a slight variation but I do not know if this is new or existed from her prior back pain as she had had right-sided symptoms prior to her surgery. Achilles reflex is +1 on both sides. SKIN: No noted rashes. No diaphoresis. No vesicles noted. No notable pallor. PSYCHIATRIC: Patient is calm. Mood is appropriate. Const Vital Signs: 08/20/22 10:16 Temperature 97.3 F L Temperature Source Temporal Pulse Rate 85 Respiratory Rate 16 Blood Pressure 135/95 H Blood Pressure Mean 108 Pulse Ox 97 Oxygen Delivery Method Room Air MDM MDM MDM Narrative Medical decision making narrative: I do not think imaging is needed. She has no bowel bladder complaints. She has chronic numbness in the right inguinal area but denies any numbness and anal or genital area. She does have slight variation of her reflexes but no sign of acute weakness. But I am still concerned about her symptoms. They have been getting worse for the last couple months and now are worsening this after a very long shift with a lot of lifting and bending. I do not think she needs an MRI at this point acutely. However this may be in her future. I will initiate meds for pain. She has allergy to hydrocodone but has taken oxycodone without problems. I will also initiate muscle relaxants to see if this provides some symptomatic relief. Because she is having some radicular symptoms and has had prior surgery I will initiate a burst of steroids. We discussed that if she develops weakness perianal or genital numbness fevers or any other concerns she may need to return. She should contact her surgeon about close follow-up even if she is improving. Discharge Plan Triage Chief Complaint: Back ED Provider: Satya Xiong Dx/Rx/DC Orders Clinical Impression: Sciatica of right side, Low back pain Instructions: ED Back Pain (Acute or Chronic), ED Sciatica Prescriptions: New cyclobenzaprine [cyclobenzaprine] 10 mg tablet 10 mg PO TID PRN (Reason: Muscle Spasm) Qty: 20 0RF prednisone 20 mg tablet 60 mg PO DAILY Qty: 15 0RF oxycodone-acetaminophen [oxycodone-acetaminophen] 5-325 mg tablet 1 tab PO Q6H PRN PRN (Reason: Pain) 3 Days Qty: 12 0RF No Action melatonin 10 mg capsule 10 mg PO HS PRN aripiprazole 10 mg tablet 10 mg PO QHS Qty: 30 2RF paroxetine HCl [Paxil] 20 mg tablet 20 mg PO DAILY Qty: 30 2RF [employer] 1 EACH tablet 1 tab PO DAILY acetaminophen 500 mg tablet 1,000 mg PO Q8H PRN (Reason: Pain) albuterol sulfate [Ventolin HFA] 1 INHALER inhaler 2 puff inhalation Q4H PRN PRN (Reason: Wheezing) Qty: 1 0RF ibuprofen 800 mg tablet 800 mg PO TID PRN (Reason: pain) Qty: 30 0RF Belsomra 5 mg tablet 5 mg PO QHS Qty: 30 0RF Primary Care Provider: Sobeida Berger Referrals: Sobeida Berger MD [Primary Care Provider] - 2 Days Activity Restrictions/Additional Instructions: Call your surgeon for close follow-up either later this week or early next week. Disposition Disposition: Home, Self Care
[2022-08-20] MEDS: Morphine 4 MG/ML Syringe IM (11:04)
[2022-08-20] MEDS: Ketorolac 60 MG/2 ML Vial IM (11:04)
[2022-08-20] MEDS: Orphenadrine 60 MG/2 ML Ampul IM (11:05)
== END 2022-08-20 11:36 | disposition home or self-care (01) ==
PROVIDERS: Emergency Provider Emergency Medicine; PCP Internal Medicine; Visit Provider Emergency Medicine
DX: M54.41 Lumbago with sciatica, right side (principal); F17.210 Nicotine dependence, cigarettes, uncomplicated; F17.290 Nicotine dependence, other tobacco product, uncomplicated; Z98.1 Arthrodesis status
CPT/HCPCS: 96372; 99284

== ENCOUNTER 2023-03-29 16:17 | Emergency (ER) | payer OTHER, SELFPAY ==
[2023-03-29 16:18] VITALS: BP 131/119; PULSE 97; RESP 16; TEMP 35.9; O2SAT 97
--- NOTE | 2023-03-29 16:36 | EDS_ITS ---
HPI History of Present Illness HPI Narrative: 47-year-old female complaining of left calf pain after walking on Thursday. No fall injury or trauma. No prior leg surgery. No DVT or PE history or risk factors. No recent travel, surgery or immobilization. No leg swelling. No numbness. Increasing pain to walk. Chief Complaint: Lower Extremity Injury Informant: patient Occured/Mechanism Mechanism/Context: No injury and No blunt trauma Onset/Context/Timing Onset: Today and Yesterday Context: Gradual Onset Timing: Continuous Quality of Pain: Dull and Aching Current Severity: Mild Maximum Severity: Moderate Associated Symptoms Associated Symptoms: Negative for Parasthesia, Weakness or Loss of Funtion Narrative Narrative: 47-year-old female complaining of atraumatic left calf pain after walking on Thursday. Denies any fall injury or trauma. No other complaints. No prior leg history or surgery. Prior similar symptoms: No Recent Illness/Hospitalization: No PFSH PFSH Medical History Alcohol use Anxiety Asthma Bipolar disorder Carpal tunnel syndrome Chronic cough Chronic pain COPD (chronic obstructive pulmonary disease) Easy bruising Hepatitis Hepatitis C Herniated cervical disc History of herniated intervertebral disc History of IBS History of stress test Hx of degenerative disc disease Injury of back Leg cramps Lumbar radicular pain MARIA INES (obstructive sleep apnea) Peptic ulcer Polysubstance abuse Schizoaffective disorder, bipolar type Schizophrenia Shortness of breath on exertion Smoker Tobacco use (Unknown) Ulnar nerve laceration Wears glasses Home Medications gqzqothi-cslajrg-dqz-iron 18 mg-FA 400 mcg-vit K 80 mcg-hrb#244 tablet ([employer]) 1 tab PO DAILY supplement 10/16/17 [History Last Taken 10/15/17] acetaminophen 500 mg tablet 1,000 mg PO Q8H PRN Pain 07/05/21 [History Last Taken Unknown] albuterol sulfate 90 mcg/actuation aerosol inhaler (Ventolin HFA) 2 puff inhalation Q4H PRN PRN Wheezing ##1 07/05/21 [Rx Last Taken Unknown] ibuprofen 800 mg tablet 800 mg PO TID PRN pain #30 tabs 09/10/21 [Rx Last Taken Unknown] melatonin 10 mg capsule 10 mg PO HS PRN 05/15/22 [History Last Taken Unknown] aripiprazole 10 mg tablet 10 mg PO QHS #30 tabs 07/29/22 [Rx Last Taken Unknown] paroxetine HCl 20 mg tablet (Paxil) 20 mg PO DAILY #30 tabs 07/29/22 [Rx Last Taken Unknown] cyclobenzaprine 10 mg tablet 10 mg PO TID PRN Muscle Spasm #20 TABLETS 08/20/22 [Rx Last Taken Unknown] oxycodone-acetaminophen 5 mg-325 mg tablet 1 tab PO Q6H PRN PRN Pain 3 days #12 TABLETS 08/20/22 [Rx Last Taken Unknown] prednisone 20 mg tablet 60 mg (3 x 20 mg) PO DAILY #15 TABLETS 08/20/22 [Rx Last Taken Unknown] suvorexant 5 mg tablet (Belsomra) 5 mg PO QHS sleep #30 tabs 09/03/22 [Rx Last Taken Unknown] Allergy/AdvReac Type Severity Reaction Status Date / Time hydrocodone Allergy Intermediate Hives Verified 08/20/22 10:18 Surgical History History of appendectomy History of back surgery History of back surgery History of cholecystectomy History of decompression of ulnar nerve History of lumbar laminectomy History of tubal ligation Social History Smoking Status: Current some day smoker tobacco type: cigarettes and e- cigarettes substance use type: does not use ROS ROS ED ROS Narrative Denies recent illness. No fever. No redness. No swelling. Review of Systems ROS Unobtainable: Denies due to encephalopathy Constitutional Constitutional ED: Denies chills or fever(s) Eyes Eyes: Denies blurry vision ENT ENT ED: Denies ear pain Cardiovascular Cardiovascular: Denies chest pain Respiratory/Chest Respiratory/Chest: Denies cough or dyspnea Gastrointestinal Gastrointestinal: Denies abdominal pain Genitourinary Genitourinary ED: Denies dysuria or hematuria Musculoskeletal Musculoskeletal: Denies arthralgias, back pain, myalgias or neck pain Integumentary Denies abscess or Abrasions Neurologic Neurologic: Denies headache(s) Psychiatric Psychiatric: Denies anxiety or depression Endocrine Endocrinology: Denies polydipsia or polyphagia Hematologic/Lymphatic Hematologic/Lymphatic: Denies easy bleeding Allergic/Immunologic Allergic/Immunologic ED: Denies mouth swelling EXAM Physical Exam Narrative Exam Narrative: Well appearing 47-year-old female. Vital signs stable afebrile initial blood pressure is elevated 131/119. HEENT exam unremarkable. Neck nontender. Lungs clear to auscultation bilaterally. Heart regular rhythm rate about 95 no murmur. Chest wall and ribs nontender. Abdomen soft nontender. Back nontender. Moving all 4 extremities. Neurovascular intact. Specifically left hip left knee and left ankle are nontender with normal range of motion. No redness or swelling. She has diffuse tenderness along her left calf. There is no deficit. No redness or warmth. She has full flexion extension of the left hip, knee and ankle. Achilles tendon is intact. Ankle is nonswollen. Left foot normal DP pulse. Able to wiggle her toes. Normal walk color. Normal sensation. Normal cap refill. The leg exam is unremarkable. There is no edema. Other than no reproducible calf tenderness the leg exam is normal. Neurologically she is awake and alert with no focal motor deficits. Const Vital Signs: 03/29/23 16:18 Temperature 96.7 F L Temperature Source Temporal Pulse Rate 97 Respiratory Rate 16 Blood Pressure 131/119 H Blood Pressure Mean 123 Pulse Ox 97 Oxygen Delivery Method Room Air Positive well nourished and well developed; Negative for cachectic, contractures or unkempt General Appearance ED: well developed and NAD; Negative for unkempt, cachectic or contractures Nutritional Appearance: Negative for cachectic HEENT Reports moist mucous membranes normocephalic and atraumatic; Negative for trauma or tenderness Eyes PERRL General Eye ED: Negative for other Neck full ROM and supple Thyroid: Negative for tender Lymph Lymphatic: Negative for other Chest Wall inspection of chest normal and palpation of chest normal Chest: Negative for other Resp normal respiratory effort, no retractions and clear to auscultation bilaterally Effort and Inspection: Negative for pain with movement Auscultation: Negative for rales, rhonchi or wheezes Cardio regular rate, regular rhythm, S1 normal heart sound, S2 normal heart sound and no murmurs Rate: Negative for bradycardia or tachycardic Rhythm: Negative for abnormal rhythm Bruits: Negative for other GI non-tender, non-distended and no masses Inspection: Negative for abdominal distention Auscultation: normoactive bowel sounds Palpation: soft; Negative for tender or guarding Bladder / Kidney Exam: No other Back/Spine no CVA tenderness General Back: Negative for CVA tenderness Cervical Spine: Negative for cervical spine tenderness Thoracic Spine / Upper Back: Negative for thoracic spinal tenderness Lumbar Spine / Lower Back: Negative for lumbar spinal tenderness Extremity full ROM; Negative for normal to inspection Extremity Narrative: Diffusely tender left calf. No redness or warmth. No edema. No cords. Left foot is neurovascular intact with normal range of motion. DP pulse. Cap refill. Sensate General Extremety ED: Yes weight-bearing difficulty; Negative for cyanosis or edema General Extremity: weight-bearing difficulty; Negative for cyanosis or edema Neuro oriented x3, CN's II-XII intact bilaterally, moves all extremities and no sensory deficits noted Sensorium / Orientation: alert, oriented to person, oriented to place and oriented to time; Negative for orientation impaired, confused, lethargic or stuporous Sensory Exam: No sensory level loss detected Motor Exam: strength 5/5 throughout; Negative for general weakness or strength abnormal Psych mental status grossly normal Appearance: Negative for unkempt Speech: No other Skin no wounds Lesions: no lesions Rashes: no rashes Trauma: Negative for abrasion, laceration or puncture MDM MDM MDM Narrative Medical decision making narrative: 39-year-old female with left calf pain after walking since yesterday. No fall injury or trauma. We discussed x-ray she deferred clinical I do not think it is necessary because there was no trauma. Clinically this appears to be a calf strain. There is no deficit like a torn muscle. There is no bruising. There is no signs of infection no redness or warmth. Left foot is neurovascularly intact. Ice and elevate. Motrin and Tylenol for pain. She was given Percocet here for pain here but I explained to them that it was not necessary for her to use at home. Crutches. Follow-up with her primary care physician if not improving or return if worse. She has no DVT or PE history or risk factors. Discharge Plan Triage Chief Complaint: Lower Extremity Injury ED Provider: Stanton Car Dx/Rx/DC Orders Clinical Impression: Strain of left calf muscle Instructions: ED Muscle Strain, Extremity Prescriptions: No Action melatonin 10 mg capsule 10 mg PO HS PRN aripiprazole 10 mg tablet 10 mg PO QHS Qty: 30 2RF paroxetine HCl [Paxil] 20 mg tablet 20 mg PO DAILY Qty: 30 2RF [employer] 1 EACH tablet 1 tab PO DAILY acetaminophen 500 mg tablet 1,000 mg PO Q8H PRN (Reason: Pain) albuterol sulfate [Ventolin HFA] 1 INHALER inhaler 2 puff inhalation Q4H PRN PRN (Reason: Wheezing) Qty: 1 0RF ibuprofen 800 mg tablet 800 mg PO TID PRN (Reason: pain) Qty: 30 0RF cyclobenzaprine [cyclobenzaprine] 10 mg tablet 10 mg PO TID PRN (Reason: Muscle Spasm) Qty: 20 0RF prednisone 20 mg tablet 60 mg PO DAILY Qty: 15 0RF oxycodone-acetaminophen [oxycodone-acetaminophen] 5-325 mg tablet 1 tab PO Q6H PRN PRN (Reason: Pain) 3 Days Qty: 12 0RF Belsomra 5 mg tablet 5 mg PO QHS Qty: 30 0RF Primary Care Provider: Sobeida Berger Referrals: Sobeida Berger MD [Primary Care Provider] - 3-5 Days if not improving Karina Arreaga [Non-Staff] - 3-5 Days if not improving Activity Restrictions/Additional Instructions: Ice and elevate. He do not relax the muscle. Motrin for pain and swelling and Tylenol for pain. Crutches and as the pain is resolving you can slowly increase weightbearing. This should progressively get better over the next several days if it does not needs reevaluated. Follow-up with either your primary care physician or the [facility]. Disposition Disposition: Home, Self Care
--- OUTSIDE RECORDS SUMMARY | 2023-03-29 16:40 | XMS RPT_ITS | CCD ---
Author Name Unknown Address [address] [place] [address] Organization [facility] Care Team Providers Care Garment Patternmaker Name Role Phone Sobeida Prakash MD Primary Care Provider LATHA YAN Attending Unavailable SOBEIDA PRAKASH Primary Care Unavailable SOBEIDA PRAKASH Primary Care Unavailable SOBEIDA PRAKASH Primary Care Unavailable Medications Current Medications Medication Drug Class(es) Dates Sig (Normalized) Sig (Original) acyclovir 400 mg oral tablet (2 sources) Herpesvirus Nucleoside Analog DNA Polymerase Inhibitor, Herpes Simplex Virus Nucleoside Analog DNA Polymerase Inhibitor, Herpes Zoster Virus Nucleoside Analog DNA Polymerase Inhibitor Start: 06-16-2022 End: 06-21-2022 take 1 tablet by mouth five times daily acyclovir (ZOVIRAX) 400 mg tablet Indications: Recurrent cold sores Take 1 tablet by mouth five times daily for 5 days. 25 tablet 0 06/16/2022 06/21/2022 Active Completed/Discontinued Medications Medication Drug Class(es) Dates Sig (Normalized) Sig (Original) acetaminophen 325 mg oral tablet (10 sources) End: 06-16-2022 take 2 tablets by mouth every six hours as needed acetaminophen (TYLENOL) 325 mg tablet Take 650 mg by mouth every 6 hours as needed. 0 06/16/2022 Discontinued Problems Active Problems Problem Classification Problem Date Documented Da te Episodic/Chronic Anxiety disorders (20 sources) Mixed anxiety and depressive disorder; Translations: [Anxiety disorder, unspecified] Onset: 7 Chronic Chronic obstructive pulmonary disease and bronchiectasis (13 sources) Chronic obstructive lung disease; Translations: [Chronic obstructive pulmonary disease, unspecified] Onset: 3 Chronic Immunizations and screening for infectious disease (4 sources) Patient encounter status; Translations: [Encounter for screening for human immunodeficiency virus [HIV]] Episodic Menstrual disorders (1 source) Amenorrhea; Translations: [Amenorrhea, unspecified] Chronic Nausea and vomiting (3 sources) Nausea; Translations: [Nausea] Onset: Episodic Other gastrointestinal disorders (10 sources) Irritable bowel syndrome; Translations: [Irritable bowel syndrome without diarrhea] Onset: 10-22-2016 Chronic Other nutritional; endocrine; and metabolic disorders (1 source) Weight gain; Translations: [Abnormal weight gain] Episodic Residual codes; unclassified (1 source) Tobacco user; Translations: [Tobacco use] Episodic Residual codes; unclassified (1 source) Insomnia; Translations: [Insomnia, unspecified] Episodic Past or Other Problems Problem Classification Problem Date Documented Da te Episodic/Chronic Cancer of cervix (10 sources) Atypical squamous cells of undetermined significance on cervical Papanicolaou smear; Translations: [Atypical squamous cells of undetermined significance on cytologic smear of cervix (ASC-US)] Onset: 11-03-2017 11-03-2017 Episodic Sprains and strains (10 sources) Strain of neck muscle; Translations: [Strain of muscle, fascia and tendon at neck level, initial encounter] Onset: 04-17-2020 04-17-2020 Episodic Viral infection (13 sources) Recurrent herpes simplex labialis; Translations: [Herpesviral vesicular dermatitis] Onset: 10-22-2016 10-22-2016 Episodic Results Test Name Value Interpretation Reference Range Facil ity Vital Signs Date Time Vital Sign Value Performing Clinician Angel yip 06-16-2022 14:22-0400 Diastolic blood pressure 76 mm[Hg] Latha Yan APRN.EYEGLASS FITTER Work Phone: [facility] 06-16-2022 14:22-0400 Heart rate 108 /min Latha Yan APRN.EYEGLASS FITTER Work Phone: [facility] 06-16-2022 14:22-0400 Systolic blood pressure 123 mm[Hg] Latha Yan APRN.EYEGLASS FITTER Work Phone: [facility] 06-16-2022 14:18-0400 Body temperature 97.81 [degF] Latha Yan APRN.EYEGLASS FITTER Work Phone: [facility] 06-16-2022 14:18-0400 Body weight 113.4 kg Latha Yan SAMPLE CUTTER.EYEGLASS FITTER Work Phone: [facility] 06-16-2022 14:18-0400 Respiratory rate 16 /min Latha Yan SAMPLE CUTTER.EYEGLASS FITTER Work Phone: [facility] 06-19-2021 08:04-0400 Body height 160 cm Sobeida Prakash MD Work Phone: [facility] 06-19-2021 08:04-0400 Body temperature 97 [degF] Sobeida Prakash MD Work Phone: [facility] 06-19-2021 08:04-0400 Body weight 109.77 kg Sobeida Prakash MD Work Phone: [facility] 06-19-2021 08:04-0400 Diastolic blood pressure 80 mm[Hg] Sobeida Prakash MD Work Phone: [facility] 06-19-2021 08:04-0400 Heart rate 104 /min Sobeida Prakash MD Work Phone: [facility] 06-19-2021 08:04-0400 Respiratory rate 14 /min Sobeida Prakash MD Work Phone: [facility] 06-19-2021 08:04-0400 SaO2% (BldA) [Mass fraction] 96 % Sobeida Prakash MD Work Phone: [facility] 06-19-2021 08:04-0400 Systolic blood pressure 124 mm[Hg] Sobeida Prakash MD Work Phone: [facility] Encounters Encounter Date Encounter Type Care Provider Facility Start: 06-16-2022 End: 06-17-2022 ambulatory [facility] Facility:[facility] Start: 06-16-2022 End: 06-16-2022 Office outpatient visit 25 minutes Latha Yan SAMPLE CUTTER.EYEGLASS FITTER Work Phone: [facility] Plan of Treatment Date Care Activity Detail Author Start: 12-05-2022 DIABETES SCREEN DIABETES SCREEN [facility] Start: 10-22-2022 HPV TESTING HPV TESTING [facility] Start: 10-22-2022 PAP TESTING PAP TESTING [facility] Start: 06-19-2022 ANNUAL PCP TEAM UPHOLSTERER ASSEMBLY LINE CRISTIAN DISEASE VISIT ANNUAL PCP TEAM CHRONIC DISEASE VISIT [facility] Start: 11-21-2021 Influenza vaccination C [facility] Start: 06-19-2021 End: 08-19-2021 CBC W Auto Differential panel - Blood CBC + DIFF Lab Routine Annual physical exam Expected: 06/19/2021, Expires: 08/19/2021 [facility] Work Phone: Immunizations Immunization Date Immunization Notes Care Provider Fa pretty 11-27-2010 influenza virus vacc ine, unspecified formulation Sobeida Prakash MD Work Phone: [facility] 11-27-2010 pneumococcal polysaccharide vaccine, 23 valent Sobeida Prakash MD Work Phone: [facility] Payers Date Payer Category Payer Medicaid [id number] 2020 Medicaid [employer] [id number] 2020-Present [phone] [address] [place] [address] Medicaid [id number] 2020 Medicaid [id number] 2020 Medicaid [id number] Social History Date Type Detail Facility Start: 10-22-2017 End: 03-05-2022 Tobacco smoking status NHIS Occasional tobacco smoker [facility] Work Phone: End: 12-06-2016 History of tobacco use Cigarette Smoker [facility] Work Phone: Start: 10-22-2017 End: 05-28-2022 Cigarettes smoked current (pack per day) - Reported 0.5 [facility] Start: 10-22-2017 End: 03-05-2022 Tobacco use and exposure Smokeless tobacco non-user [facility] Work Phone: Start: 06-19-2021 End: 05-28-2022 Alcohol intake Current non-drinker of alcohol (finding) [facility] Start: 04-07-2017 History SDOH Alcohol Comment pt quit drinking in September [facility] Start: 01-08-2011 End: 03-05-2022 Tobacco Comment 1 pack every 3 days [facility] Start: 1975 Sex Assigned At Not on file C [facility] Start: 06-09-2021 End: 10-31-2021 Exposure to SARS-CoV-2 (event) Not sure [facility] Work Phone: Start: 06-30-2021 End: 07-10-2021 Exposure to SARS-CoV-2 (event) Yes [facility] Clinical Notes 06-19-2021 to 08-27-2022 Patient InstructionsLatha Yan APRN.EYEGLASS FITTER - 06/16/2022 2:20 PM EDTTelephone Encounter - Marie Aguillon APRN.COREMAKER SUPERVISOR - 06/13/2022 12:23 PM EDTTelephone Encounter - SHAYY Dallas - 06/13/2022 9:38 AM EDT Note Date & Type Note Facility 08-27-2022 Note Patient Outreach (IN [facility]) SHAHNAZ ESPANA ([id number]) 1975 F Date Time Provider Department 08/27/22 SOBEIDA PRAKASH During your visit today, we recorded the following information about you: Allergies As of Date: 08/27/2022 (No Known Allergies) Date Reviewed: 05/28/2022 Reviewed by: Renetta Forman - Fully Assessed Visit Diagnosis:Encounter for screening mammogram for breast cancer [Z12.31] Order(s):[facility] SCREENING [[id number]] Order #: [id number] FUTURE Prescriptions as of 09/01/2022 - predniSONE (DELTASONE) 10 mg tablet Take 4 tabs daily for 3 days, then 2 tabs daily for 3 days, then 1 tab daily for 3 days with food. - albuterol HFA (PROVENTIL HFA, VENTOLIN HFA) 90 mcg/actuation inhaler Inhale 2-4 Puffs as instructed every 2 hours as needed for wheezing/shortness of breath. - ondansetron orally disintegrating (ZOFRAN ODT) 8 mg disintegrating tablet Take 1 tablet by mouth every 8 hours as needed for nausea/vomiting. DOSE CHANGE, TAKE ONE - benzonatate (TESSALON PERLES) 100 mg capsule Take 1-2 capsules by mouth three times daily as needed for cough. - ARIPiprazole (ABILIFY) 5 mg tablet Take 5 mg by mouth once daily. - ramelteon (ROZEREM) 8 mg tablet Take 8 mg by mouth daily at bedtime. - albuterol HFA (VENTOLIN HFA) 90 mcg/actuation inhaler Inhale 2 Puffs as instructed every 4 hours as needed. - fluticasone-salmeterol (ADVAIR DISKUS) 250-50 mcg/dose inhaler Inhale 1 Puff as instructed twice daily. Rinse and gargle mouth after use with water. Problem List As Of Date 08/27/2022 Noted Resolved Chronic obstructive pulmonary disease (COPD) (H* IBS (irritable bowel syndrome) [K58.9] 10/22/2016 Recurrent cold sores [B00.1] 10/22/2016 PTSD (post-traumatic stress disorder) [F43.10] 10/22/2016 Anxiety and depression [F41.9, F32.A] 10/22/2016 ASCUS with positive high risk HPV cervical [R87*11/03/2017 Cervical strain [S16.1XXA] 04/17/2020 Encounter Status:Closed by [employer], PRODUSER on 09/01/22 [facility] 06-16-2022 Note HNO ID: [id number] Author: Latha Yan APRN.EYEGLASS FITTER Service: ? Author Type: Nurse Specialist Type: Progress Notes Filed: 06/16/2022 3:04 PM Note Text: PCP: Sobeida Prakash MD FREDDY Espana is a 47 year old female who presents with 2-3 weeksof symptoms that are stable She was seen in urgent care on May 28, 2022. She reported nausea. Found to have left ear infection. She was treated with amoxicillin and Zofran. She reported initially feeling better but then a couple days later felt worse with ear pain cough sore throat nausea vomiting diarrhea. She called the office to report the above. Was treated with additional Zofran. She reported vomiting while taking amoxicillin. An alternate antibiotic doxycycline was sent to the pharmacy. She notes Zofran at 8 mg has helped. She notes cold sore has recurred with her illness. Today reports productive cough which does not seem to be getting better. Symptoms include: Fever (?100.4F): No no current, had one a few days ago or Chills: No Cough: Yes, productive Shortness of breath: Yes or Difficulty breathing: No Fatigue: Yes Muscle aches: No Headache: No New loss of smell or taste: No Sore throat: No Nasal congestion: Yes or Rhinorrhea: Yes Nausea: Yes or Vomiting: No currently, has had nausea and vomiting Diarrhea: No OBJECTIVE PHYSICAL EXAM: BP 123/76 (BP Site: Left Arm, BP Position: Standing, BP Cuff Size: Large Adult) Pulse 108 Temp 36.6 ?C (97.8 ?F) Resp 16 Wt 113.4 kg (250 lb) LMP 10/15/2017 BMI 44.29 kg/m? General appearance: tired/ill appearing, alert, cooperative, pleasant, in no acute distress Head: Normocephalic Eyes: conjunctiva/corneas normal Ears: R TM - clear with good landmarks, nl light reflex, L TM - clear with good landmarks, nl light reflex Nose: clear rhinorrhea Oropharynx: moist without lesions, mild erythema to GPA Neck: supple and small, benign anterior cervical nodes bilaterally Heart: regular rate and rhythm, without murmur Lungs: good air exchange, wheezing diffusely' ASSESSMENT/PLAN (B00.1) Recurrent cold sores (primary encounter diagnosis) (R11.0) Nausea (J44.1) COPD with exacerbation (HCC) ASSESSMENT/PLAN: 1. Recurrent cold sores - ICD9: 054.9, ICD10: B00.1 (primary diagnosis) - ACYCLOVIR 400 MG TABLET 2. Nausea - ICD9: 787.02, ICD10: R11.0 - ONDANSETRON 8 MG DISINTEGRATING TABLET 3. COPD with exacerbation (HCC) - ICD9: 491.21, ICD10: J44.1 - PREDNISONE 10 MG TABLET - ALBUTEROL SULFATE HFA 90 MCG/ACTUATION AEROSOL INHALER - AZITHROMYCIN 250 MG TABLET - BENZONATATE 100 MG CAPSULE Advised: Okay to take 8 mg of Zofran. Refill was sent for 8 mg dose Take azithromycin antibiotic daily in the morning with food. Take prednisone daily in the morning with food. Use albuterol inhaler every 4-6 hours as needed for cough wheeze and shortness of breath Take benzonatate every 8 hours as needed for cough suppression. Eat a mild diet and push fluids. Let us know if you are not feeling improved in the next couple of days. Latha Yan APRN.CNS Medical Decision Making: Problems: Moderate: Acute illness with systemic symptoms Risk: Moderate: Drug management Medical Decision Making Level: 4 - Moderate [facility] 06-16-2022 Instructions Latha Yan APRN.CNS - 06/16/2022 2:55 PM EDT Okay to take 8 mg of Zofran. Refill was sent for 8 mg dose Take azithromycin antibiotic daily in the morning with food. Take prednisone daily in the morning with food. Use albuterol inhaler every 4-6 hours as needed for cough wheeze and shortness of breath Take benzonatate every 8 hours as needed for cough suppression. Eat a mild diet and push fluids. Let us know if you are not feeling improved in the next couple of days documented in this encounter [facility] 06-16-2022 History of Presen t illness Narrative PCP: Sobeida Prakash MD FREDDY Espana is a 47 year old female who presents with 2-3 weeksof symptoms that are stable She was seen in urgent care on May 28, 2022. She reported nausea. Found to have left ear infection. She was treated with amoxicillin and Zofran. She reported initially feeling better but then a couple days later felt worse with ear pain cough sore throat nausea vomiting diarrhea. She called the office to report the above. Was treated with additional Zofran. She reported vomiting while taking amoxicillin. An alternate antibiotic doxycycline was sent to the pharmacy. She notes Zofran at 8 mg has helped. She notes cold sore has recurred with her illness. Today reports productive cough which does not seem to be getting better. Symptoms include: Fever (?100.4F): No no current, had one a few days ago or Chills: No Cough: Yes, productive Shortness of breath: Yes or Difficulty breathing: No Fatigue: Yes Muscle aches: No Headache: No New loss of smell or taste: No Sore throat: No Nasal congestion: Yes or Rhinorrhea: Yes Nausea: Yes or Vomiting: No currently, has had nausea and vomiting Diarrhea: No OBJECTIVE PHYSICAL EXAM: BP 123/76 (BP Site: Left Arm, BP Position: Standing, BP Cuff Size: Large Adult) Pulse 108 Temp 36.6 C (97.8 F) Resp 16 Wt 113.4 kg (250 lb) LMP 10/15/2017 BMI 44.29 kg/m General appearance: tired/ill appearing, alert, cooperative, pleasant, in no acute distress Head: Normocephalic Eyes: conjunctiva/corneas normal Ears: R TM - clear with good landmarks, nl light reflex, L TM - clear with good landmarks, nl light reflex Nose: clear rhinorrhea Oropharynx: moist without lesions, mild erythema to GPA Neck: supple and small, benign anterior cervical nodes bilaterally Heart: regular rate and rhythm, without murmur Lungs: good air exchange, wheezing diffusely' ASSESSMENT/PLAN (B00.1) Recurrent cold sores (primary encounter diagnosis) (R11.0) Nausea (J44.1) COPD with exacerbation (HCC) ASSESSMENT/PLAN: 1. Recurrent cold sores - ICD9: 054.9, ICD10: B00.1 (primary diagnosis) - ACYCLOVIR 400 MG TABLET 2. Nausea - ICD9: 787.02, ICD10: R11.0 - ONDANSETRON 8 MG DISINTEGRATING TABLET 3. COPD with exacerbation (HCC) - ICD9: 491.21, ICD10: J44.1 - PREDNISONE 10 MG TABLET - ALBUTEROL SULFATE HFA 90 MCG/ACTUATION AEROSOL INHALER - AZITHROMYCIN 250 MG TABLET - BENZONATATE 100 MG CAPSULE Advised: Okay to take 8 mg of Zofran. Refill was sent for 8 mg dose Take azithromycin antibiotic daily in the morning with food. Take prednisone daily in the morning with food. Use albuterol inhaler every 4-6 hours as needed for cough wheeze and shortness of breath Take benzonatate every 8 hours as needed for cough suppression. Eat a mild diet and push fluids. Let us know if you are not feeling improved in the next couple of days. Latha Yan APRN.CNS Medical Decision Making: Problems: Moderate: Acute illness with systemic symptoms Risk: Moderate: Drug management Medical Decision Making Level: 4 - Moderate documented in this encounter [facility] 06-13-2022 Miscellaneous Notes Noted. Marie Aguillon APRN.CNP TC to patient who states she currently does not have access to do a virtual visit. Pt states she will go to Urgent care today after work and will then follow up with provider during her appointment on Thursday. SHAYY [place] Patient has not been seen in a year. Is there a possibility of doing a virtual appointment for further evaluation prior to prescribing the zovirax? Thank you Marie Aguillon APRN.CNP Patient calls back and states that she made appointment with Latha Yan on 06/16/2022. Patient states that her lip continues to swell. Advised patient to go to [facility] and have it looked at. Patient states she cannot find the time for that due to work. Still is asking if prescription can be sent. Please review and advise, Fouzia Larose RN Shahnaz Espana is calling Sobeida Prakash MD today to request Medication not on her current list: acyclovir (ZOVIRAX) 400 mg tablet. Patient stated she has cold sore on her lip and needs today. Please send to [facility] today. Patient has been identified by name and birthdate. Duration of symptoms: N/A Person calling: self Call patient at: on cell [phone] (home) [phone] (cell) Was an appointment scheduled: No Closing statement: Results or non-symptom based questions: Thank you for calling [facility], your call will be returned within the next business day. Janet Abreu Pss documented in this encounter [facility] 06-03-2022 Miscellaneous Notes Pt called and is notified of providers results and instructions. Pt voices understanding. Fariba Cabrera RN Refilled the zofran for 24 tabs, that should help with the gagging, I think she should take oral pills because the amount she may need for liquid would be more, , its hard to find a forumlary for it. I just tried Regards, Sobeida Prakash MD Pt calls to report she was seen in UC on 05/28/22. Pt had nausea and left ear infection. Pt was prescribed amoxicillin 875 mg and zofran. Pt reports she started feeling better for a couple of days but now feels worse. Pt reports now right ear is hurting, has a cough, sore throat, N/V, diarrhea. Pt reports she is out of zofran and is having a hard time keeping atb tab down. Pt is asking for another rx for zofran and also asking if it is possible for atb to be prescribed in liquid form because she keeps gagging on atb tablet and then vomits. Please review and advise. Call pt with 's message. Deanna Rodas LPN documented in this encounter [facility] 05-28-2022 Note HNO ID: [id number] Author: Ora Ryan APRN.COREMAKER SUPERVISOR Service: ? Author Type: Nurse Practitioner Type: Progress Notes Filed: 05/28/2022 1:09 PM Note Text: Subjective HPI Shahnaz Espana is a 46 year old female who presents with nausea, dizziness, not sleeping well and left ear pain for the past 3 days. Has been having sleep issues for a month and has been seeing psychiatry for this. He just prescribed a NEW sleep medication YESTERDAY and she took it once and still did sleep well. Left ear has been painful and clogged for a few days and she has felt some dizziness with associated nausea. Review of Systems Constitutional: Negative for chills and fever. HENT: Positive for ear pain and tinnitus. Negative for sore throat. Respiratory: Negative for cough and shortness of breath. Cardiovascular: Negative. Gastrointestinal: Positive for nausea. Neurological: Positive for dizziness and headaches. Psychiatric/Behavioral: The patient has insomnia. BP 122/70 Pulse 94 Temp 37.1 ?C (98.7 ?F) Resp 16 Wt 111.6 kg (246 lb) LMP 10/15/2017 SpO2 97% BMI 43.58 kg/m? PAST MEDICAL HISTORY Diagnosis Date Anxiety disorder Bleeding ulcer Borderline personality disorder (HCC) Bronchitis Chronic obstructive pulmonary disease (COPD) (HCC) Fracture Hepatitis C Personal history of unspecified urinary disorder Schizoaffective disorder, depressive type (HCC) PAST SURGICAL HISTORY Procedure Laterality Date APPENDECTOMY CHOLECYSTECTOMY HX 08/19/2016 LAMINECTOMY,LUMBAR PAST SURGICAL HISTORY OF left arm PAST SURGICAL HISTORY OF tubaligation ALLERGIES Patient has no known allergies. MEDICATIONS albuterol HFA (PROVENTIL HFA, VENTOLIN HFA) 90 mcg/actuation inhaler Inhale 2-4 Puffs as instructed every 2 hours as needed for wheezing/shortness of breath. albuterol HFA (VENTOLIN HFA) 90 mcg/actuation inhaler Inhale 2 Puffs as instructed every 4 hours as needed. fluticasone-salmeterol (ADVAIR DISKUS) 250-50 mcg/dose inhaler Inhale 1 Puff as instructed twice daily. Rinse and gargle mouth after use with water. ARIPiprazole (ABILIFY) 5 mg tablet Take 5 mg by mouth once daily. ramelteon (ROZEREM) 8 mg tablet Take 8 mg by mouth daily at bedtime. ondansetron orally disintegrating (ZOFRAN ODT) 4 mg disintegrating tablet Take 1 tablet by mouth every 6 hours as needed for nausea/vomiting. amoxicillin (AMOXIL) 875 mg tablet Take 1 tablet by mouth twice daily for 7 days. predniSONE (DELTASONE) 10 mg tablet Take 4 tabs daily for 3 days, then 2 tabs daily for 3 days, then 1 tab daily for 3 days with food. (Patient not taking: Reported on 05/28/2022) venlafaxine ER (EFFEXOR XR) 75 mg 24 hr capsule Take 1 capsule by mouth once daily. (Patient not taking: Reported on 03/05/2022) traZODone (DESYREL) 50 mg tablet Take 1 tablet by mouth daily at bedtime. (Patient not taking: Reported on 03/05/2022) docusate sodium (STOOL SOFTENER) 100 mg capsule Take 1 capsule by mouth twice daily. (Patient not taking: Reported on 03/05/2022) acetaminophen (TYLENOL) 325 mg tablet Take 650 mg by mouth every 6 hours as needed. (Patient not taking: Reported on 03/05/2022) FAMILY HISTORY Problem Relation Age of Onset Heart Mother Emphysema Mother COPD Mother Asthma Mother Prostate Cancer Father Heart Father Cancer Sister cervicle Social History Tobacco Use Smoking status: Some Days Packs/day: 0.50 Years: 4.00 Pack years: 2.00 Types: Cigarettes Last attempt to quit: 12/06/2016 Years since quittin.4 Smokeless tobacco: Never Tobacco comments: 1 pack every 3 days Vaping Use Vaping Use: Never used Substance Use Topics Alcohol use: No Alcohol/week: 23.3 standard drinks Types: 28 Cans of beer per week Comment: pt quit drinking in September Drug use: No Comment: past crystal meth (smoked); cocaine (IV AND smoked); xanax Objective Physical Exam Vitals and nursing note reviewed. Constitutional: General: She is not in acute distress. Appearance: She is obese. She is not toxic-appearing. HENT: Right Ear: Tympanic membrane, ear canal and external ear normal. Left Ear: Ear canal and external ear normal. A middle ear effusion is present. Tympanic membrane is injected and erythematous. Nose: Nose normal. Mouth/Throat: Mouth: Mucous membranes are moist. Pharynx: Oropharynx is clear. Uvula midline. No oropharyngeal exudate or posterior oropharyngeal erythema. Cardiovascular: Rate and Rhythm: Normal rate and regular rhythm. Heart sounds: Normal heart sounds. Pulmonary: Effort: Pulmonary effort is normal. No respiratory distress. Breath sounds: Normal breath sounds. No wheezing or rales. Musculoskeletal: Cervical back: Neck supple. Lymphadenopathy: Cervical: No cervical adenopathy. Skin: General: Skin is warm and dry. Findings: No erythema or rash. Neurological: Mental Status: She is alert. ASSESSMENT/PLAN: 1. Nausea - ICD9: 787.02, ICD10: R (more content not included)... [facility] 05-28-2022 Miscellaneous Notes Filled in another encounter Shonda Aguillon APRN.CNP Patient calling she started new medication from her Psych and is making her dizzy. she has notified them. Patient is asking for zofran rx. Patient uses [facility] for her pharmacy. Patient goes to work at 2 pm today needing it quickly. Pending rx to file. Please advise documented in this encounter [facility] 05-12-2022 Miscellaneous Notes Patient has not been seen in almost a year with multiple ER visits since last being seen. Needs an ER follow-up scheduled. Thank you Marie Aguillon APRN.CNP Protocol recommends ER now. Patient agreeable. Reason for Disposition [1] Can't take a deep breath BUT [2] no respiratory distress SEVERE chest pain Answer Assessment - Initial Assessment Questions 1. 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 Starts at right of sternum and travels around the right side and to center of back. Went to [facility] ER 2-15 who r/o heart causes and pneumonia and diagnosed her with chest wall strain. 2. ONSET: 05-05-22 . 3. LOCATION: Right chest 4. APPEARANCE: No lumps, bumps, or bruises. 5. BLEEDING: No bleeding 6. SEVERITY: No difficulty breathing. The injury pain is worse when takes a breath. 7. SIZE No cuts, bruises or swelling. 8. PAIN: Right now 8/10 after taking ibuprofen 9. TETANUS: Not sure 10. : No Protocols used: Chest [id number] documented in this encounter [facility] 03-05-2022 Note HNO ID: [id number] Author: Nithya Rowan APRN.COREMAKER SUPERVISOR Service: ? Author Type: Nurse Practitioner Type: Progress Notes Filed: 03/05/2022 3:09 PM Note Text: This note was created using Senseeriter. Subjective Shahnaz Espana is a 46 year old female. 46 year old female with PMH COPD and IBS presents for illness. Acute onset one week ago +cough States that she went to [facility] related to cough and SOB States that a chest xray was negative They told me I have the flu States that her cough as worsened, and yesterday evening she developed body aches +N/V/D States I feel worse Endorses that her mom who she resides with is having similar Endorses that she quit smoking 2 months ago The history is provided by the patient. No languages and literature instructor was used. Flu Like Symptoms This is a new problem. The current episode started in the past 7 days. The problem occurs constantly. The problem has been gradually worsening. Associated symptoms include chills, congestion, coughing, fatigue, a fever, headaches, myalgias, swollen glands and vomiting. Pertinent negatives include no abdominal pain, arthralgias, chest pain, nausea, neck pain, numbness, rash, sore throat, urinary symptoms, vertigo, visual change or weakness. Nothing aggravates the symptoms. She has tried nothing for the symptoms. The treatment provided no relief. PAST MEDICAL HISTORY Diagnosis Date Anxiety disorder Bleeding ulcer Borderline personality disorder (HCC) Bronchitis Chronic obstructive pulmonary disease (COPD) (HCC) Fracture Hepatitis C Personal history of unspecified urinary disorder Schizoaffective disorder, depressive type (HCC) PAST SURGICAL HISTORY Procedure Laterality Date APPENDECTOMY CHOLECYSTECTOMY HX 08/19/2016 LAMINECTOMY,LUMBAR PAST SURGICAL HISTORY OF left arm PAST SURGICAL HISTORY OF tubaligation ALLERGIES Patient has no known allergies. MEDICATIONS albuterol HFA (VENTOLIN HFA) 90 mcg/actuation inhaler Inhale 2 Puffs as instructed every 4 hours as needed. fluticasone-salmeterol (ADVAIR DISKUS) 250-50 mcg/dose inhaler Inhale 1 Puff as instructed twice daily. Rinse and gargle mouth after use with water. predniSONE (DELTASONE) 10 mg tablet Take 4 tabs daily for 3 days, then 2 tabs daily for 3 days, then 1 tab daily for 3 days with food. albuterol HFA (PROVENTIL HFA, VENTOLIN HFA) 90 mcg/actuation inhaler Inhale 2-4 Puffs as instructed every 2 hours as needed for wheezing/shortness of breath. doxycycline monohydrate (MONODOX) 100 mg capsule Take 1 capsule by mouth twice daily for 7 days. ondansetron orally disintegrating (ZOFRAN ODT) 4 mg disintegrating tablet Take 1 tablet by mouth every 6 hours as needed for nausea/vomiting. venlafaxine ER (EFFEXOR XR) 75 mg 24 hr capsule Take 1 capsule by mouth once daily. (Patient not taking: Reported on 03/05/2022) traZODone (DESYREL) 50 mg tablet Take 1 tablet by mouth daily at bedtime. (Patient not taking: Reported on 03/05/2022) docusate sodium (STOOL SOFTENER) 100 mg capsule Take 1 capsule by mouth twice daily. (Patient not taking: Reported on 03/05/2022) acetaminophen (TYLENOL) 325 mg tablet Take 650 mg by mouth every 6 hours as needed. (Patient not taking: Reported on 03/05/2022) FAMILY HISTORY Problem Relation Age of Onset Heart Mother Emphysema Mother COPD Mother Asthma Mother Prostate Cancer Father Heart Father Cancer Sister cervicle Social History Tobacco Use Smoking status: Some Days Packs/day: 0.50 Years: 4.00 Pack years: 2.00 Types: Cigarettes Last attempt to quit: 12/06/2016 Years since quittin.2 Smokeless tobacco: Never Tobacco comments: 1 pack every 3 days Vaping Use Vaping Use: Never used Substance Use Topics Alcohol use: No Alcohol/week: 23.3 standard drinks Types: 28 Cans of beer per week Comment: pt quit drinking in September Drug use: No Comment: past crystal meth (smoked); cocaine (IV AND smoked); xanax Review of Systems Constitutional: Positive for chills, fatigue and fever. HENT: Positive for congestion, sinus pressure and sinus pain. Negative for postnasal drip, rhinorrhea and sore throat. Eyes: Negative for photophobia, pain, discharge, redness and itching. Respiratory: Positive for cough. Negative for apnea, choking and chest tightness. Cardiovascular: Negative for chest pain, palpitations and leg swelling. Gastrointestinal: Positive for vomiting. Negative for abdominal pain, diarrhea and nausea. Musculoskeletal: Positive for myalgias. Negative for arthralgias, back pain and neck pain. Skin: Negative for color change, pallor and rash. Allergic/Immunologic: Negative for environmental allergies, food allergies and immunocompromised state. Neurological: Positive for headaches. Negative for dizziness, vertigo, facial asymmetry, weakness and numbness. Hematological: Negative for adenopathy. Does not bruise/bleed easily. Psychiatric/Behavioral: (more content not included)... [facility] 11-08-2021 Miscellaneous Notes Urgent care eval tomorrow Patient calling, states that she has had abdominal pain sharp/shooting for 4 days. The first day she had vomiting and the last 3 days she has had diarrhea. She has been taking Pepto, Zofran, and a probiotic. She does not feel like she is getting worse she is just not getting better. Asking if there is anything else that PCP could recommend. Please advise. documented in this encounter [facility] 09-18-2021 Note Patient Outreach (IN [facility]) SHAHNAZ ESPANA ([id number]) 1975 F Date Time Provider Department 09/18/21 SOBEIDA PRAKASH During your visit today, we recorded the following information about you: Allergies As of Date: 09/18/2021 (No Known Allergies) Date Reviewed: 06/19/2021 Reviewed by: Lachelle Herman LPN - Fully Assessed Visit Diagnosis:Encounter for screening mammogram for breast cancer [Z12.31] Order(s):[facility] SCREENING [[id number]] Order #: [id number] FUTURE Prescriptions as of 09/23/2021 - ondansetron orally disintegrating (ZOFRAN ODT) 4 mg disintegrating tablet Take 1 tablet by mouth every 8 hours as needed for nausea/vomiting. - venlafaxine ER (EFFEXOR XR) 75 mg 24 hr capsule Take 1 capsule by mouth once daily. - traZODone (DESYREL) 50 mg tablet Take 1 tablet by mouth daily at bedtime. - albuterol HFA (VENTOLIN HFA) 90 mcg/actuation inhaler Inhale 2 Puffs as instructed every 4 hours as needed. - ondansetron orally disintegrating (ZOFRAN ODT) 4 mg disintegrating tablet Take 1 tablet by mouth every 8 hours as needed for nausea/vomiting. - fluticasone-salmeterol (ADVAIR DISKUS) 250-50 mcg/dose inhaler Inhale 1 Puff as instructed twice daily. Rinse and gargle mouth after use with water. - docusate sodium (STOOL SOFTENER) 100 mg capsule Take 1 capsule by mouth twice daily. - acetaminophen (TYLENOL) 325 mg ORAL tablet Take 650 mg by mouth every 6 hours as needed. 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 08-09-2021 Miscellaneous Notes Patient has been identified by name and date of : Yes Patient phones for refill(s): Pending Prescriptions Disp Refills ONDANSETRON 4 MG DISINTEGRATING TABLET 20 tablet 2 Sig: Take 1 tablet by mouth every 8 hours as needed for nausea/vomiting. JA: No Date of last office visit in primary care: 06/19/2021 Last 2 Encounter Wt Readings: Date: Wt: 06/19/2021 109.8 kg (242 lb) 05/14/2021 109.7 kg (241 lb 12.8 oz) Previous labs/tests for medication: Not applicable Please advise. Thank you. Lachelle Herman LPN Patient has been identified by name and date of : Yes Pending Prescriptions Disp Refills ONDANSETRON 4 MG DISINTEGRATING TABLET 20 tablet 2 Sig: Take 1 tablet by mouth every 8 hours as needed for nausea/vomiting. JA: No RX INSTRUCTIONS: Patient is out of medication, please send today, she needs this sent by 1pm today. Patient aware RX will be sent to pharmacy. No need to notify patient. Janet Melendez documented in this encounter [facility] 07-10-2021 Miscellaneous Notes Mailbox is full. Please let patient know Zofran prescription has been sent as requested. Thank you Marie Augillon APRN.GILMA Patient calls in to report she was diagnosed with Covid on ThursdayJuly 05 at [facility] ER. She reports that her symptoms include nausea, fever, sore throat, dizziness, brain fog, fatigue, body aches, loss of taste, loss of smell, and SOB with exertion. Patient utilizing OTC medications for fever/aches. Patient reports her worst symptom is nausea and is requesting an order for Zofran be sent to [facility]? Patient also requested upcoming appointment be changed to virtual on 07/17. Changed per request. Please review and advise, Rupali Clemente RN documented in this encounter [facility] 06-19-2021 History of Presen t illness Narrative Reason for Visit Patient presents with: Established Patient: multiple issues, sleeping,hormones, depression Shahnaz Espana is a 46 year old female who presents here today for CPE. Health Maintenance SPIROMETRY HIV SCREENING DTAP,TDAP,TD(1 - Tdap) MAMMOGRAM LIPID SCREEN COLORECTAL CANCER SCREENING COVID-19 VACCINE(3 - Booster for Moderna series) INFLUENZA(1) HPI On May 30 patient had bilateral carpal tunnel surgery release by Dr. Bryce reed. She seems to be doing well after that. 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 For anxiety she is on anything. She has been off the wellbutrin, and prozac for the past 4 months Willing to try effexor. She is working this same Job for years and steady with the job, no addictions right now. 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 Weight gain: has been gaining weight since she is off the drugs over 4 years. She is walking, eating small portions but is still struggling with the weight gain. Insomnia: she is unable to sleep at night, she tosses and turns a lot. She cannot stop going. Smokes due ot stress, just she just does a couple puffs in a cigarettes and stops. Diet Log: when she is in the morning, she does not eat anything. She eats fruit between lunch and dinner. And then dinner. And fruit at night time. She drinks propel water, she does not drinks much pop at all. The little oranges grapes, bananas like crazy, she is not into raspberries or strawberries. There is a lot of sugar in it. She is exercising by walking once a day for 10 mins because of her back. She has not had periods for 4 months No problem-specific Assessment & Plan notes found for this encounter. PAST MEDICAL HISTORY Diagnosis Date Anxiety disorder Bleeding ulcer Borderline personality disorder (HCC) Bronchitis Chronic obstructive pulmonary disease (COPD) (HCC) Fracture Hepatitis C Personal history of unspecified urinary disorder Schizoaffective disorder, depressive type (HCC) PAST SURGICAL HISTORY Procedure Laterality Date APPENDECTOMY CHOLECYSTECTOMY HX 08/19/2016 LAMINECTOMY,LUMBAR PAST SURGICAL HISTORY OF left arm PAST SURGICAL HISTORY OF tubaligation FAMILY HISTORY Problem Relation Age of Onset Heart Mother Emphysema Mother COPD Mother Asthma Mother Prostate Cancer Father Heart Father Cancer Sister cervicle Social History Tobacco Use Smoking status: Current Some Day Smoker Packs/day: 0.50 Years: 4.00 Pack years: 2.00 Types: Cigarettes Last attempt to quit: 12/06/2016 Years since quittin.5 Smokeless tobacco: Never Used Tobacco comment: 1 pack every 3 days Vaping Use Vaping Use: Never used Substance Use Topics Alcohol use: No Alcohol/week: 23.3 standard drinks Types: 28 Cans of beer per week Comment: pt quit drinking in September Drug use: No Comment: past crystal meth (smoked); cocaine (IV & smoked); xanax Past medical history, appointments, medications, allergies reviewed. Pertinent Lab/Diagnostic Studies are reviewed and discussed today Current Outpatient Medications: albuterol HFA (VENTOLIN HFA) 90 mcg/actuation inhaler predniSONE (DELTASONE) 10 mg tablet ondansetron orally disintegrating (ZOFRAN ODT) 4 mg disintegrating tablet FLUoxetine HCl (PROZAC) 40 mg capsule buPROPion XL (WELLBUTRIN XL) 300 mg 24 hr tablet fluticasone-salmeterol (ADVAIR DISKUS) 250-50 mcg/dose inhaler docusate sodium (STOOL SOFTENER) 100 mg capsule hydrOXYzine HCl (ATARAX) 25 mg tablet acyclovir (ZOVIRAX) 400 mg tablet diazePAM (VALIUM) 5 mg tablet keTORolac (TORADOL) 10 mg tablet oxybutynin ER (DITROPAN XL) 10 mg 24 hr tablet Benzonatate 200 mg capsule lurasidone (LATUDA) 20 mg tablet omeprazole (PRILOSEC) 20 mg capsule potassium chloride ER (KLOR-CON M20) 20 mEq tablet fexofenadine-pseudoephedrine (PILY D) 60-120 mg per tablet acetaminophen (TYLENOL) 325 mg ORAL tablet Review of Systems CONSTITUTIONAL: No fevers, chills, nightsweats, unintended weight loss HEENT: Denies frequent or severe heaches, nasal congestion/sinus symptoms, problematic allergy problems. EYES: No diplopia or blurry vision. CARDIOVASCULAR: No chest pain, dyspnea, palpitations, orthopnea, PND, ankle edema. PULM: No dyspnea, unexplained cough. GI: No dysphagia/odynophagia, problematic reflux, constipation, diarrhea, changes in stool habits, hematochezia, melena. : No new urinary complaints, including dysuria, gross hematuria or pyuria. NEURO: No new balance problems, peripheral weakness/paresthesias or numbness of concern. MUSC-SKEL: No new joint pain, swelling, or erythema. PSY: No concerns regarding depression, anxiety or panic. INTEGUMENTARY: No new skin changes (rash, new or changing mole, new growth) Physical Exam BP 124/80 (BP Site: Left Arm, BP Position: Sitting, BP Cuff Size: Large Adult) Pulse 104 Temp 36.1 C (97 F) Resp 14 Ht 160 cm (5' 3 ) Wt 109.8 kg (242 lb) LMP 10/15/2017 SpO2 96% BMI 42.87 kg/m General appearance: Well appearing, alert, in no acute distress, well-hydrated, well nourished. Skin: Skin color, texture, turgor normal, no suspicious rashes or lesions Head: Normocephalic, no masses, lesions, tenderness or abnormalities Eyes: Anicteric sclera. Pupils are equally round and reactive to light. Extraocular movements are intact. Ears: External ears normal, canals clear Nose/Sinuses: Nares normal, septum midline, mucosa normal, no drainage or sinus tenderness Oropharynx: Lips, mucosa, and tongue normal, teeth and gums normal, oropharynx normal Neck: Supple, no adenopathy; thyroid symmetric, normal size, no bruits Back: Normal exam Lungs: Lungs clear to auscultation. No wheezing, rhonchi, rales Heart: RRR without murmur, gallop, or rubs. No ectopy Abdomen: Normal abdominal exam, Abdomen soft, non-tender. Bowel sounds normal. No masses, organomegaly Extremities: No deformities, edema, skin discoloration, clubbing or cyanosis. Good capillary refill. Musculoskeletal: No joint swelling, deformity, or tenderness Peripheral pulses: Normal Neuro: Gait normal. Reflexes normal and symmetric. Sensation grossly intact. ASSESSMENT/PLAN: 1. Annual physical exam - ICD9: V70.0, ICD10: Z00.00 (primary diagnosis) - Counseled on healthy diet and regular exercise - Calcium intake with supplements or by diet of 1000 mg/day for under 50, 8267-2183 mg/day for 50+ - CBC + DIFF - COMP METABOLIC PANEL - LIPID PANEL BASIC 2. Weight gain - ICD9: 783.1, ICD10: R63.5 - TSH BLD 3. Anxiety and depression - ICD9: 300.00, 311, ICD10: F41.9, F32.A effexor will help her 4. Chronic obstructive pulmonary disease, unspecified COPD type (HCC) - ICD9: 496, ICD10: J44.9 5. Tobacco abuse - ICD9: 305.1, ICD10: Z72.0 - Cessation encouraged. - Physiologic and physical aspects of tobacco addiction as well as strategies for quitting were discussed. - Counseling was given focusing on the harmful effects of this addiction especially given the patient's medical condition(s) which will be worsened because of the chemicals in tobacco. 6. Encounter for screening for HIV - ICD9: V73.89, ICD10: Z11.4 - HIV 1 2 COMBO(AG/AB),WITH REFLEX TO DIFFERENTIATION 7. Encounter for screening for diabetes mellitus - ICD9: V77.1, ICD10: Z13.1 - HGB A1C 8. Insomnia, unspecified type - ICD9: 780.52, ICD10: G47.00 9. Lipid screening - ICD9: V77.91, ICD10: Z13.220 - LIPID PANEL BASIC Sobeida Prakash MD documented in this encounter [facility] Diagnosis Encounter for screening mammogram for breast cancer [facility]* Diagnosis Nausea Nausea alone [facility] Diagnosis Recurrent cold sores Herpes simplex without mention of complication [facility]* Diagnosis Recurrent cold sores- Primary Herpes simplex without mention of complication Nausea Nausea alone COPD with exacerbation (HCC) Obstructive chronic bronchitis with exacerbation [facility] Diagnostic Procedure Only (Routine) - Pending Review Specialty Diagnoses / Procedures Referred By Lana aguiar Referred To Contact [facility] Diagnoses Encounter for screening mammogram for breast cancer Procedures ИРИНА SCREENING SCREENING MAMMOGRAPHY BI 2-VIEW BREAST INC CAD Sobeida Prakash MD [address] [place] [address] [facility] [address] [facility] [place] [address] Referral ID Status Reason Start Date Expiration Date Visits Requested Visits Authorized [id number] Pending Review Auto-Generat ed Referral 09/18/2021 10/18/2022 1 1 [facility] Summary Purpose Family History No Family History Records FoundNo Family History Records FoundNo Family History Records Found Advance Directives No Advanced Directives Records FoundDocuments on File Type Date Recorded Patient Manager Produce Expl anation Advance Directive(s) Documents on File Type Date Recorded Patient Manager Produce Expl anation Advance Directive(s) Reason for Referral Specialty Diagnoses / Procedures Referred By Lana aguiar Referred To Contact Diagnoses COPD with exacerbation (HCC) Latha Yan APRN.EYEGLASS FITTER [address] [place] [address] Referral ID Status Reason Start Date Expiration Date Visits Re quested Visits Authorized [id number] Closed 1 1 Additional Source Comments INFORMATION SOURCE (unrecogn ized section and content) DATE CREATED AUTHOR AUTHOR'S ORGANIZ ATION 03/02/2018 [facility] Reference [facility] DATE CREATED AUTHOR AUTHOR'S ORGANIZ ATION 09/03/2022 [facility] Source Comments (unrecognize d section and content) In the event this informatio n is protected by the Federal Confidentiality of Alcohol and Drug Abuse Patient Records regulations: The Federal rules restrict any use of the information to criminally investigate or prosecute any alcohol or drug abuse patient.[facility] the event this information is protected by the Federal Confidentiality of Alcohol and Drug Abuse Patient Records regulations: The Federal rules restrict any use of the information to criminally investigate or prosecute any alcohol or drug abuse patient.[facility] the event this information is protected by the Federal Confidentiality of Alcohol and Drug Abuse Patient Records regulations: The Federal rules restrict any use of the information to criminally investigate or prosecute any alcohol or drug abuse patient.[facility] the event this information is protected by the Federal Confidentiality of Alcohol and Drug Abuse Patient Records regulations: The Federal rules restrict any use of the information to criminally investigate or prosecute any alcohol or drug abuse patient.[facility] the event this information is protected by the Federal Confidentiality of Alcohol and Drug Abuse Patient Records regulations: The Federal rules restrict any use of the information to criminally investigate or prosecute any alcohol or drug abuse patient.[facility] the event this information is protected by the Federal Confidentiality of Alcohol and Drug Abuse Patient Records regulations: The Federal rules restrict any use of the information to criminally investigate or prosecute any alcohol or drug abuse patient.[facility] the event this information is protected by the Federal Confidentiality of Alcohol and Drug Abuse Patient Records regulations: The Federal rules restrict any use of the information to criminally investigate or prosecute any alcohol or drug abuse patient.[facility] the event this information is protected by the Federal Confidentiality of Alcohol and Drug Abuse Patient Records regulations: The Federal rules restrict any use of the information to criminally investigate or prosecute any alcohol or drug abuse patient.[facility] the event this information is protected by the Federal Confidentiality of Alcohol and Drug Abuse Patient Records regulations: The Federal rules restrict any use of the information to criminally investigate or prosecute any alcohol or drug abuse patient.[facility] the event this information is protected by the Federal Confidentiality of Alcohol and Drug Abuse Patient Records regulations: The Federal rules restrict any use of the information to criminally investigate or prosecute any alcohol or drug abuse patient.[facility] Reason for Visit (unrecogniz ed section and content) Reason Comments Covid19 Concern Reason Onset Date Comments Refill Request 08/09/2021 Out of medicatio n Reason Comments Abdominal Pain Reason Comments right chest pain Reason Comments Medication Request Reason Comments Nausea & Vomiting Cough Reason Comments Medication Request acyclovir (ZOVIRAX) 400 mg tablet Reason Comments Dizziness Cough Care Teams (unrecognized sec tion and content) Garment Patternmaker Relationship Specialty Start Date End Date Sobeida Prakash MD [address] [place], [place] [id number] PCP - General Internal Medicine 04/07/17 Garment Patternmaker Relationship Specialty Start Date End Date Sobeida Prakash MD [address] [place], [place] [id number] PCP - General Internal Medicine 04/07/17 Garment Patternmaker Relationship Specialty Start Date End Date Sobeida Prakash MD [address] [place] [address] PCP - General Internal Medicine 04/07/17 Garment Patternmaker Relationship Specialty Start Date End Date Sobeida Prakash MD [address] [facility] [place] [address] PCP - General Internal Medicine 04/07/17 Garment Patternmaker Relationship Specialty Start Date End Date Sobeida Prakash MD [address] [facility] [place] [address] PCP - General Internal Medicine 04/07/17 Garment Patternmaker Relationship Specialty Start Date End Date Sobeida Prakash MD [address] [facility] [place] [address] PCP - General Internal Medicine 04/07/17 Garment Patternmaker Relationship Specialty Start Date End Date Sobeida Prakash MD [address] [facility] [place] [address] PCP - General Internal Medicine 04/07/17 Garment Patternmaker Relationship Specialty Start Date End Date Sobeida Prakash MD [address] [facility] [place] [address] PCP - General Internal Medicine 04/07/17 FOR RECORDS PERTAINING TO PATIENTS WHO ARE OR HAVE BEEN ENROLLED IN A CHEMICAL DEPENDENCY/SUBSTANCEABUSE PROGRAM, SOME INFORMATION MAY BE OMITTED. This clinical summary was aggregated from multiple sources. Caution should be exercised in using it in the provision of clinical care. This summary normalizes information from multiple sources, and as a consequence, information in this document may materially change the coding, format and clinical context of patient data. In addition, data may be omitted in some cases. CLINICAL DECISIONS SHOULD BE BASED ON THE PRIMARY CLINICAL RECORDS. [facility]. provides no warranty or guarantee of the accuracy or completeness of information in this document.
[2023-03-29] MEDS: Oxycodone/Apap 5/325 Tablet PO (16:42)
--- NOTE | 2023-03-29 17:06 | ED.RN ---
This RN provided pt with x1 pain medication per MD order and provided pt with d/c instructions. Pt stated that she needed crutches and pain medication script as well as more dates on her work excuse to back date days she had missed prior to coming to ED. This RN asked Dr. Car for crutches and pain meds per pt request. He stated that she had a muscle strain and should not be taking any narcotics for that. He did write the order for crutches. This RN provided pt with crutches and explained that we don't back date work excuses and that the MD recommended otc pain management. Pt and significant other were upset, stated that otc is not working for her and they'll just have to come back because the pain isn't going to get better and that's what they want so they can bill you for another visit. Pt refused to walk with crutches but denied ever having used them in the past. Education provided in spite of refusal.
== END 2023-03-29 17:13 | disposition home or self-care (01) ==
LOC: ED 16:39
PROVIDERS: Emergency Provider Emergency Medicine; PCP Internal Medicine; Visit Provider Emergency Medicine
DX: S86.112A Strain of other muscle(s) and tendon(s) of posterior muscle group at lower leg level, left leg, initial encounter (principal); X58.XXXA Exposure to other specified factors, initial encounter; F17.210 Nicotine dependence, cigarettes, uncomplicated; F17.290 Nicotine dependence, other tobacco product, uncomplicated
CPT/HCPCS: 99283

== ENCOUNTER 2023-03-31 11:55 | Emergency (ER) | payer OTHER, SELFPAY ==
[2023-03-31 12:18] VITALS: BP 115/78; PULSE 84; RESP 14; TEMP 36.6; O2SAT 95
--- NOTE | 2023-03-31 14:01 | RAD_ITS ---
STUDY: X-RAY - LUMBAR SPINE REASON FOR EXAM: Female, 47 years old. FALL UP THE STEPS, PAIN DOWN LEFT LEG INTO CALF TECHNIQUE: 3 view(s) of the lumbar spine were obtained. COMPARISON: Comparison is made with prior study dated July 09, 2021. FINDINGS: Normal lumbar lordosis. There is no substantial scoliosis. There is a normal alignment of the vertebrae. There is multilevel endplate spondylosis of the lumbar vertebrae. Normal disc space heights. The soft tissue structures are unremarkable. RAD/Lumbar Spine 2 or 3 Views IMPRESSION: Degenerative changes of the spine, as detailed above. Electronically Signed: Dmitri Ramesh MD at 14:50 EST ,
--- NOTE | 2023-03-31 14:02 | VDLE_ITS ---
Reason For Study: pain Procedure LEFT This is a venous duplex using B-mode, color GSV is normal. flow and spectral Doppler. CFV is compressible, spontaneous, phasic, Exam performed portable in ED. competent, and demonstrates normal The exam was abbreviated due to the COVID 19 augmentation. protocol. FV is compressible, spontaneous, phasic, The exam was diagnostic. competent and demonstrates normal A preliminary report was called and/or faxed augmentation. to Dr. Maddox. POP V is compressible, spontaneous, phasic, competent and demonstrates normal augmentation. T/P Trunk is compressible. PTV is compressible. LT PerV is compressible. VL/Venous Duplex US, Unilateral Interpretation Summary Deep veins of the left lower extremity are patent and compressible segmentally. There is no evidence of left lower extremity deep vein thrombosis. The left great saphenous vein kai ears patent and compressible segmentally. Ordering Physician: Blade Maddox Performed By: Ilya Alexander RVT
[2023-03-31] MEDS: oxyCODONE 5 MG Tablet PO (14:23)
[2023-03-31] MEDS: Ibuprofen 600 MG Tablet PO (14:23)
--- NOTE | 2023-04-17 10:45 | EDS_ITS ---
HPI History of Present Illness Chief Complaint: Lower Extremity Injury Informant: patient Narrative Narrative: Delay noted. Patient seen 03/31/23. Walking 3 days prior, stumbled, pain in right calf and lowber back. No radicular pain. No loss og bowel or bladder function. Seen 2 days ago in ED, no imaging. Simples continue and worsen with movement. Called PCP, sent to ED. Prior similar symptoms: Yes PFSH PFSH Medical History Alcohol use Anxiety Asthma Bipolar disorder Carpal tunnel syndrome Chronic cough Chronic pain COPD (chronic obstructive pulmonary disease) Easy bruising Hepatitis Hepatitis C Herniated cervical disc History of herniated intervertebral disc History of IBS History of stress test Hx of degenerative disc disease Injury of back Leg cramps Lumbar radicular pain MARIA INES (obstructive sleep apnea) Peptic ulcer Polysubstance abuse Schizoaffective disorder, bipolar type Schizophrenia Shortness of breath on exertion Smoker Tobacco use (Unknown) Ulnar nerve laceration Wears glasses Home Medications fthvmiou-xcmxvfi-vzw-iron 18 mg-FA 400 mcg-vit K 80 mcg-hrb#244 tablet ([employer]) 1 tab PO DAILY supplement 10/16/17 [History Last Taken 10/15/17] acetaminophen 500 mg tablet 1,000 mg PO Q8H PRN Pain 07/05/21 [History Last Taken Unknown] albuterol sulfate 90 mcg/actuation aerosol inhaler (Ventolin HFA) 2 puff inhalation Q4H PRN PRN Wheezing ##1 07/05/21 [Rx Last Taken Unknown] ibuprofen 800 mg tablet 800 mg PO TID PRN pain #30 tabs 09/10/21 [Rx Last Taken Unknown] melatonin 10 mg capsule 10 mg PO HS PRN sleep 05/15/22 [History Last Taken Unknown] paroxetine HCl 20 mg tablet (Paxil) 20 mg PO DAILY #30 tabs 07/29/22 [Rx Last Taken Unknown] prednisone 20 mg tablet 60 mg (3 x 20 mg) PO DAILY #15 TABLETS 08/20/22 [Rx Last Taken Unknown] suvorexant 5 mg tablet (Belsomra) 5 mg PO QHS sleep #30 tabs 09/03/22 [Rx Last Taken Unknown] cyclobenzaprine 10 mg tablet 10 mg PO TID PRN Muscle Spasm #20 TABLETS 03/31/23 [Rx Last Taken Unknown] oxycodone-acetaminophen 5 mg-325 mg tablet 1 tab PO Q6H PRN PRN Pain 3 days #12 TABLETS 03/31/23 [Rx Last Taken Unknown] Allergy/AdvReac Type Severity Reaction Status Date / Time hydrocodone Allergy Intermediate Hives Verified 03/31/23 12:18 Surgical History History of appendectomy History of back surgery History of back surgery History of cholecystectomy History of decompression of ulnar nerve History of lumbar laminectomy History of tubal ligation Social History household members: none housing: house Smoking Status: Current some day smoker tobacco type: cigarettes and e- cigarettes substance use type: does not use ROS ROS ED Constitutional Constitutional ED: Denies chills, fever(s) or sweats Eyes Eyes: Denies change in vision ENT ENT ED: Denies dysphagia or sore throat Cardiovascular Cardiovascular: Denies chest pain, leg edema, palpitations or racing heartbeat Respiratory/Chest Respiratory/Chest: Denies cough, dyspnea or dyspnea on exertion Gastrointestinal Gastrointestinal: Denies abdominal pain, diarrhea, nausea or vomiting Genitourinary Genitourinary ED: Denies dysuria, hematuria or urinary frequency Musculoskeletal Musculoskeletal: Reports back pain and extremity pain; Denies neck pain Integumentary Denies rash or wounds Neurologic Neurologic: Denies headache(s), paresthesias or weakness EXAM Physical Exam Const Positive well nourished and well developed Constitutional Narrative: uncomfortable, nontoxic General Appearance ED: well developed HEENT Reports moist mucous membranes normocephalic and atraumatic Eyes PERRL, EOMs intact bilaterally and conjunctivae normal General Eye ED: Yes normal appearance of both eyes Neck no lymphadenopathy and supple General: Negative for tenderness Chest Wall Chest: Negative for tenderness Resp normal respiratory effort and normal air movement Effort and Inspection: symmetric chest movement; Negative for respiratory distress Cardio regular rate, regular rhythm and no murmurs Peripheral Pulses: pulses 2+ throughout GI normal to inspection, nondistended, normoactive bowel sounds and non-tender Palpation: Negative for guarding or rebound tenderness present Back/Spine no CVA tenderness Back/Spine Narrative: Paralumbar tenderness, previous heal incision lumbar, straight leg negative, 1+ patellar reflex bilaterally. Extremity normal to inspection Extremity Narrative: right calf TTP, no defect, no rash General Extremety ED: Yes tenderness; Negative for edema General Extremity: Negative for edema Neuro oriented x3 and no sensory deficits noted Sensorium / Orientation: awake and alert Skin no rashes or lesions noted and no wounds MDM MDM MDM Narrative Medical decision making narrative: No cauda equina symptoms. Treated with pain medications in ED. RLE dvt us obtained and negative. LS spine 3 views notes degenerative changes. Rx pain meds. Outpatient follow up given. Radiography X-Ray: LS SPine, Read by ED Physician, Read by Radiologist, No Fracture and DJD Diagnostic Testing: Clinical Impression(s) from Imaging Studies Lumbar Spine X-Ray 03/31/23 14:01 IMPRESSION: Degenerative changes of the spine, as detailed above. Electronically Signed: Dmitri Ramesh MD at 14:50 EST Reading Location ID and State: [address] [place] [address] , Service support , Venous Doppler Study 03/31/23 14:02 Interpretation Summary Deep veins of the left lower extremity are patent and compressible segmentally. There is no evidence of left lower extremity deep vein thrombosis. The left great saphenous vein appears patent and compressible segmentally. Ordering Physician: Blade Maddox Performed By: Ilya Alexander, RVT Differential Diagnosis Differential Diagnosis: lumbar strain, disk herniation Why less likely: No cauda eqina symptoms, negative DVT on US. Discharge Plan Triage Chief Complaint: Lower Extremity Injury ED Provider: Blade Maddox Dx/Rx/DC Orders Clinical Impression: Strain of left calf muscle, Acute lumbar myofascial strain Instructions: ED Back Sprain/Strain, ED Muscle Strain, Extremity Prescriptions: New cyclobenzaprine [cyclobenzaprine] 10 mg tablet 10 mg PO TID PRN (Reason: Muscle Spasm) Qty: 20 0RF oxycodone-acetaminophen [oxycodone-acetaminophen] 5-325 mg tablet 1 tab PO Q6H PRN PRN (Reason: Pain) 3 Days Qty: 12 0RF No Action melatonin 10 mg capsule 10 mg PO HS PRN (Reason: sleep) paroxetine HCl [Paxil] 20 mg tablet 20 mg PO DAILY Qty: 30 2RF [employer] 1 EACH tablet 1 tab PO DAILY acetaminophen 500 mg tablet 1,000 mg PO Q8H PRN (Reason: Pain) albuterol sulfate [Ventolin HFA] 1 INHALER inhaler 2 puff inhalation Q4H PRN PRN (Reason: Wheezing) Qty: 1 0RF ibuprofen 800 mg tablet 800 mg PO TID PRN (Reason: pain) Qty: 30 0RF prednisone 20 mg tablet 60 mg PO DAILY Qty: 15 0RF Belsomra 5 mg tablet 5 mg PO QHS Qty: 30 0RF Stand Alone Forms: ED Work / School Excuse Primary Care Provider: Sobeida Berger Referrals: Justo Hernandez MD [Med Staff - Active Staff] - 1-2 Weeks Sobeida Berger MD [Primary Care Provider] - 1 Week Activity Restrictions/Additional Instructions: DVT study left leg negative. X-ray lumbar spine negative. Continue Motrin 600 mg every 6 hours. Take additional medications as prescribed. Follow-up with your doctor for further evaluation. May also follow-up with orthopedics, Disposition Disposition: Home, Self Care Discharge Date/Time: 03/31/23 15:37
== END 2023-03-31 15:37 | disposition home or self-care (01) ==
PROVIDERS: Emergency Provider Emergency Medicine; PCP Internal Medicine; Visit Provider Emergency Medicine
DX: S86.112A Strain of other muscle(s) and tendon(s) of posterior muscle group at lower leg level, left leg, initial encounter (principal); J44.9 Chronic obstructive pulmonary disease, unspecified; S39.012A Strain of muscle, fascia and tendon of lower back, initial encounter; W18.40XA Slipping, tripping and stumbling without falling, unspecified, initial encounter; Y93.01 Activity, walking, marching and hiking; M79.662 Pain in left lower leg; G89.11 Acute pain due to trauma; F17.210 Nicotine dependence, cigarettes, uncomplicated; F17.290 Nicotine dependence, other tobacco product, uncomplicated; Z98.1 Arthrodesis status
CPT/HCPCS: 72100; 93971; 99283

== ENCOUNTER 2023-05-08 15:39 | Emergency (ER) | payer OTHER, SELFPAY ==
[2023-05-08 15:40] VITALS: BP 137/81; PULSE 82; RESP 16; TEMP 35.9; O2SAT 97
[2023-05-08 15:42] VITALS: BMI 40.3
--- NOTE | 2023-05-08 17:45 | EDS_ITS ---
HPI History of Present Illness Chief Complaint: Nausea/Vomiting PFSH PFSH Medical History Alcohol use Anxiety Asthma Bipolar disorder Carpal tunnel syndrome Chronic cough Chronic pain COPD (chronic obstructive pulmonary disease) Easy bruising Hepatitis Hepatitis C Herniated cervical disc History of herniated intervertebral disc History of IBS History of stress test Hx of degenerative disc disease Injury of back Leg cramps Lumbar radicular pain MARIA INES (obstructive sleep apnea) Peptic ulcer Polysubstance abuse Schizoaffective disorder, bipolar type Schizophrenia Shortness of breath on exertion Smoker Tobacco use (Unknown) Ulnar nerve laceration Wears glasses Home Medications mpbffmyl-imgwtkr-ypw-iron 18 mg-FA 400 mcg-vit K 80 mcg-hrb#244 tablet ([employer]) 1 tab PO DAILY supplement 10/16/17 [History Last Taken 10/15/17] acetaminophen 500 mg tablet 1,000 mg PO Q8H PRN Pain 07/05/21 [History Last Taken Unknown] albuterol sulfate 90 mcg/actuation aerosol inhaler (Ventolin HFA) 2 puff inhalation Q4H PRN PRN Wheezing ##1 07/05/21 [Rx Last Taken Unknown] ibuprofen 800 mg tablet 800 mg PO TID PRN pain #30 tabs 09/10/21 [Rx Last Taken Unknown] metoclopramide HCl 5 mg tablet (Reglan) 5 mg PO Q8H PRN PRN nausea and vomiting 7 days #21 tabs 05/08/23 [Rx Last Taken Unknown] Allergy/AdvReac Type Severity Reaction Status Date / Time hydrocodone Allergy Intermediate Hives Verified 03/31/23 12:18 Surgical History History of appendectomy History of back surgery History of back surgery History of cholecystectomy History of decompression of ulnar nerve History of lumbar laminectomy History of tubal ligation Social History household members: none housing: house Smoking Status: Current some day smoker tobacco type: cigarettes and e- cigarettes substance use type: does not use EXAM Physical Exam Const Vital Signs: 05/08/23 15:40 05/08/23 19:48 05/08/23 20:52 Temperature 96.7 F L 98.2 F Temperature Source Temporal Pulse Rate 82 55 L 81 Respiratory Rate 16 12 16 Blood Pressure 137/81 H 127/72 H 117/71 Blood Pressure Mean 99 90 86 Pulse Ox 97 99 97 Oxygen Delivery Method Room Air Room Air [facility] Narr[place] Medical decision making narrative: HISTORY OF PRESENT ILLNESS: 47-year-old female presents with extreme nausea . States this began 5 days ago. Notes nausea began 5 days ago at the same time her headache began. Endo rses feeling fatigued. Endorses feeling lightheaded especially with exertion. Denies any facial drooping, slurred speech, visual deficits, focal numbness tingling or loss of sensation. Denies any chest pain or shortness of breath. She does note a chronic cough. She denies any urinary complaints. Denies any melena or hematochezia. Denies any vaginal bleeding or discharge. She denies any head trauma. Denies any neck stiffness or recent sick contacts. Patient denies sudden onset or thunderclap headache, denies maximal intensity within 1 minute, vomiting, neck pain, stiffness, changes in vision, fever, history malignancy, syncope, or seizures associated with headache. REVIEW OF SYSTEMS: Pertinent positives: Nausea, headache Pertinent negatives: Abdominal pain, chest pain, shortness of breath, focal weakness, loss of sensation, slurred speech, facial drooping, urinary complaints PHYSICAL EXAM: Nursing triage notes reviewed, Vital signs reviewed Constitutional: please see [facility] HENT: MMM Eyes: Pupils equal round and reactive to light, Extraocular muscles intact, visual lakhani intact, within the limits of ED funduscopy no evidence of obvious papilledema, Doppler hemorrhages, evidence of central retinal artery or vein occlusion. Neck: No stridor, no JVD, full neck ROM Lungs: Clear to auscultation, No wheezing or rales. No increased work of breathing, no conversational dyspnea, no accessory muscle use, no nasal flaring. No respiratory distress noted Heart: Regular rate and rhythm, No murmurs, No rubs and No gallops, 2+ distal pulses (radial, femoral, posterior tibial) in all extremities Abdomen: Soft, there is no tenderness, rigidity, rebound or guarding, no obvious peritoneal signs, no palpable pulsatile abdominal masses, no auscultated abdominal bruit : No CVAT Extremities: No edema Neuro: N alert and oriented x3, neuro exam at baseline, cranial nerves II through XII are intact. No pain with extraocular muscle movement. There is negative test of skew. 5 of 5 strength in upper and lower extremities in flexion extension. Intact sensation to light touch in upper and lower extremity dermatomes. No truncal or extremity ataxia. No dysdiadochokinesia. Normal gait. 2+ reflexes in upper and lower extremities. No meningeal signs. Negative Babinski. NIH of 0. Skin: No rash or lesions noted MEDICAL DECISION MAKING: Chief Complaint: Nausea/headache External records reviewed: Imaging reviewed: CT scan of the head from 2015 shows no acute abnormality. CT scan abdomen pelvis from October 2021 shows no acute findings Factors affecting care: COPD, bipolar disorder, asthma, anxiety, hepatitis C, peptic ulcer disease Social determinants of health: History mental health disorder MDM Narrative: Patient was initially hemodynamically stable, afebrile, nontoxic-appearing. Exam without focal neurologic deficits. Abdomen soft nontender not peritonitic. I considered the following differential diagnosis: Subarachnoid hemorrhage, ICH, COVID, flu, RSV, dehydration, electrolyte disturbance, ALL IMAGES (IF OBTAINED) HAVE BEEN PERSONALLY REVIEWED AND INTERPRETED BY MYSELF. CBC with leukocytosis, no anemia or thrombocytopenia Urinalysis shows no evidence of urinary inflammation suggestive of UTI I have personally reviewed the patient's chest x-ray. Chest x-ray is unremarkable for pulmonary edema, pneumothorax, pneumonia or focal car diopulmonary abnormality. EKG with sinus bradycardia, normal axis, normal intervals, no obvious STEMI or ischemic changes BMP without evidence of significant electrolyte abnormalities, no anion gap, no acute kidney injury. LFTs show no evidence of significant hepatobiliary pathology. High-sensitivity troponin is negative, no evidence of myocardial ischemia Lipase is wnl indicating no pancreatic inflammation. Urinalysis shows no evidence of urinary inflammation suggestive of UTI COVID, RSV, flu negative CT scan of the head was negative for acute intracranial hemorrhage, mass The synthesis of the patient history, physical exam, labs images suggest no acute life-limiting etiology. Unclear etiology at this time. Could be viral in nature. Patient was able tolerate p.o. prior to discharge. Patient is appropriate for discharge home with oral Reglan instructed to return if symptoms change or worsen. The patient and/or family, caregivers express understanding. The patient and/or family, caregivers agrees with the plan. Shared decision making: I will have a discussion with the patient and or visitors regarding risk/benefits of further testing or admission. They will be made aware of of the risk/benefits inherent in this decision they will be given the opportunity to voice understanding. Total critical care time today provided was at least 0 [] minutes. This excludes separately billable procedures. Critical care time (if documented) is secondary to the patient having high probability of clinically significant/life threatening deterioration in the patient's condition which required my urgent intervention. Impression: 1. Headache 2. Nausea mom 3. Leukocytosis 4. Elevated liver enzymes Dispo: Discharge home This note was generated with [employer] dictation software. It may contain incorrect words, spelling, and punctuation that were not noted in review of the chart prior to signing. Lab Data Labs: Laboratory Results - last 24 hr 05/08/23 18:45 WBC 12.8 H RBC 4.64 Hgb 13.1 Hct 42.7 MCV 92.0 MCH 28.2 MCHC 30.7 L RDW Std Deviation 45.3 H RDW Coeff of Bianca 13.5 Plt Count 318 MPV 10.0 Immature Gran % (Auto) 0.300 Neut % (Auto) 64.5 Lymph % (Auto) 29.7 Bent % (Auto) 4.5 Eos % (Auto) 0.6 Baso % (Auto) 0.4 Absolute Neuts (auto) 8.3 H Absolute Lymphs (auto) 3.81 Nucleated RBC % 0 Sodium 140 Potassium 3.9 Chloride 108 H Carbon Dioxide 28.0 Anion Gap 4 L BUN 8 Creatinine 0.60 Estim Creat Clear Calc 131.71 Est GFR (MDRD) Af Amer 136 Est GFR (MDRD) Non-Af 112 BUN/Creatinine Ratio 13.2 Glucose 87 Calcium 9.2 Total Bilirubin 0.40 AST 40 H ALT 67 H Alkaline Phosphatase 96 Troponin I High Sens 3 Total Protein 7.6 Albumin 3.6 Globulin 4.0 Albumin/Globulin Ratio 0.9 Lipase 58 Urine Color Yellow Urine Clarity Clear Urine pH 6.5 Ur Specific [place] 1.015 Urine Protein Negative Urine Glucose (UA) Normal Urine Ketones Negative Urine Occult Blood Negative Urine Nitrite Negative Urine Bilirubin Negative Urine Urobilinogen 1 H Ur Leukocyte Esterase Negative Urine RBC 0 SEEN Urine WBC 0-5 SEEN Ur Squamous Epith Cells 5-10 SEEN Urine Bacteria 0 SEEN Urine Mucus 0 SEEN Urine Test Negative Radiography Diagnostic Testing: Clinical Impression(s) from Imaging Studies Brain CT 05/08/23 18:17 IMPRESSION: No acute abnormalities unchanged since prior exam. Electronically Signed: Jerzy Varghese MD at 19:18 EST , Chest X-Ray 05/08/23 18:53 IMPRESSION: Normal x-ray examination of the chest. Electronically Signed: Jerzy Varghese MD at 19:13 EST , Discharge Plan Triage Chief Complaint: Nausea/Vomiting ED Provider: Nathan Martinez Dx/Rx/DC Orders Instructions: ED Vomiting (Adult) Prescriptions: New metoclopramide HCl [Reglan] 5 mg tablet 5 mg PO Q8H PRN PRN (Reason: nausea and vomiting) 7 Days Qty: 21 0RF No Action [employer] 1 EACH tablet 1 tab PO DAILY acetaminophen 500 mg tablet 1,000 mg PO Q8H PRN (Reason: Pain) albuterol sulfate [Ventolin HFA] 1 INHALER inhaler 2 puff inhalation Q4H PRN PRN (Reason: Wheezing) Qty: 1 0RF ibuprofen 800 mg tablet 800 mg PO TID PRN (Reason: pain) Qty: 30 0RF Primary Care Provider: Sobeida Berger Referrals: Sobeida Berger MD [Primary Care Provider] - Activity Restrictions/Additional Instructions: Thank you for trusting us with your care today! Please take Tylenol (2 pills, 650 mg), ibuprofen (2 pills, 400 mg) every 6 hours as needed for pain and fever control. Please take Reglan as needed for nausea or vomiting. Please return to the emergency department if your symptoms change or worsen. Please follow with your primary care physician for further outpatient evaluation and management. Disposition Disposition: Home, Self Care Discharge Date/Time: 05/08/23 21:07
--- OUTSIDE RECORDS SUMMARY | 2023-05-08 18:10 | XMS RPT_ITS | CCD ---
Author Name Unknown Address [address] [place] [address] Organization [facility] Care Team Providers Care Training Executive Name Role Phone Olinda ENCISO, Sobeida Primary Care Provider JIMMY HANEY Attending Unavailable OLINDA, SOBEIDA Primary Care Unavailable LATHA YAN Attending Unavailable OLINDA, SOBEIDA Primary Care Unavailable GANTA, SOBEIDA Primary Care Unavailable FIGJULIETA, GREY Attending Unavailable OLINDA, SOBEIDA Primary Care Unavailable FIGAS, GREY Referring Unavailable GANTA, SOBEIDA Primary Care Unavailable FIGAS, GREY Referring Unavailable FIGAS, GREY Referring Unavailable FIGAS, GREY Attending Unavailable OLINDA, SOBEIDA Primary Care Unavailable Olinda ENCISO, Sobeida Primary Care Provider [phone] Domenic JOHNSON, Nithya Unavailable Medications Current Medications Medication Drug Class(es) [...] Chronic Chronic obstructive pulmonary disease and bronchiectasis (14 sources) Chronic obstructive lung disease; Translations: [Chronic obstructive pulmonary disease, unspecified] Onset: 3 Chronic Immunizations and screening for infectious disease (4 sources) Patient encounter status; Translations: [Encounter for screening for human immunodeficiency virus [HIV]] Episodic Menstrual disorders (1 source) Amenorrhea; Translations: [Amenorrhea, unspecified] Chronic Other connective tissue disease (1 source) Pain in left leg; Translations: [Left leg pain] Onset: 4 Episodic Other gastrointestinal disorders (11 sources) Irritable bowel syndrome; Translations: [Irritable bowel syndrome without diarrhea] Onset: 7 10-22-2016 Chronic Other injuries and conditions due to external causes (1 source) Unspecified injury of unspecified Achilles tendon, initial encounter; Translations: [Injury of Achilles tendon, initial encounter] Onset: 4 Episodic Other nutritional; endocrine; and metabolic disorders (1 source) Weight gain; Translations: [Abnormal weight gain] Episodic Residual codes; unclassified (1 source) Tobacco user; Translations: [Tobacco use] Episodic Residual codes; unclassified (1 source) Insomnia; Translations: [Insomnia, unspecified] Episodic Sprains and strains (13 sources) Strain of neck muscle; Translations: [Strain of muscle, fascia and tendon at neck level, initial encounter] Onset: 1 04-17-2020 Episodic Past or Other Problems Problem Classification Problem Date Documented Da te Episodic/Chronic Cancer of cervix (11 sources) Atypical squamous cells of undetermined significance on cervical Papanicolaou smear; Translations: [Atypical squamous cells of undetermined significance on cytologic smear of cervix (ASC-US)] Onset: 11-03-2017 11-03-2017 Episodic Nausea and vomiting (3 sources) Nausea; Translations: [Nausea] Onset: 06-16-2022 Episodic Viral infection (14 sources) Recurrent herpes simplex labialis; Translations: [Herpesviral vesicular dermatitis] Onset: 10-22-2016 10-22-2016 Episodic Results Test Name Value Interpretation Reference Range Facil ity Vital Signs Date Time Vital Sign Value Performing Clinician Angel yip 04-17-2023 08:33-0500 Body height 160 cm Grey Figjulieta DPM Work Phone: [facility] 04-17-2023 08:33-0500 Body weight 102.06 kg Grey Figjulieta DPM Work Phone: [facility] 04-17-2023 08:33-0500 Respiratory rate 18 /min Grey Mina DPM Work Phone: [facility] 06-16-2022 14:22-0400 Diastolic blood pressure 76 mm[Hg] Latha Yan GL ACCOUNTANT.DIRECTOR BIOMEDICAL ENGINEERING Work Phone: [facility] 06-16-2022 14:22-0400 Heart rate 108 /min Latha Yan GL ACCOUNTANT.DIRECTOR BIOMEDICAL ENGINEERING Work Phone: [facility] 06-16-2022 14:22-0400 Systolic blood pressure 123 mm[Hg] Latha Yan GL ACCOUNTANT.DIRECTOR BIOMEDICAL ENGINEERING Work Phone: [facility] 06-16-2022 14:18-0400 Body temperature 97.81 [degF] Latha Yan GL ACCOUNTANT.DIRECTOR BIOMEDICAL ENGINEERING Work Phone: [facility] 06-16-2022 14:18-0400 Body weight 113.4 kg Latha Yan GL ACCOUNTANT.DIRECTOR BIOMEDICAL ENGINEERING Work Phone: [facility] 06-16-2022 14:18-0400 Respiratory rate 16 /min Latha Yan GL ACCOUNTANT.DIRECTOR BIOMEDICAL ENGINEERING Work Phone: [facility] 06-19-2021 08:04-0400 Body height 160 cm Sobeida Prakash MD Work Phone: [facility] 06-19-2021 08:04-0400 Body temperature 97 [degF] Sobeida Prakash MD Work Phone: [facility] 06-19-2021 08:04-0400 Body weight 109.77 kg Sobeida Prakash MD Work Phone: [facility] 06-19-2021 08:04-0400 Diastolic blood pressure 80 mm[Hg] Sobeida Prakash MD Work Phone: [facility] 06-19-2021 08:04-0400 Heart rate 104 /min Sobeida Prakash MD Work Phone: [facility] 06-19-2021 08:04-0400 Respiratory rate 14 /min Sobeida Prakash MD Work Phone: [facility] 06-19-2021 08:04-0400 SaO2% (BldA) [Mass fraction] 96 % Sobeida Prakash MD Work Phone: [facility] 06-19-2021 08:04-0400 Systolic blood pressure 124 mm[Hg] Sobeida Prakash MD Work Phone: [facility] Encounters Encounter Date Encounter Type Care Provider Facility Start: 04-17-2023 End: 04-17-2023 ambulatory GREY MINA Facility:[facility] Start: 04-17-2023 End: 04-17-2023 Patient encounter procedure Grey Mina DPM Work Phone: [facility] Procedures Date Procedure Procedure Detail Performing Clinician Start: 09-13-2010 Lipid 1996 panel - S vandana or Plasma Grey Mina DPM Work Phone: Plan of Treatment Date Care Activity Detail Author Start: 04-06-2024 Annual PCP Team Bench Repair Technician vivian Disease Visit Annual PCP Team Chronic Disease Visit [facility] Start: 12-05-2022 DIABETES SCREEN DIABETES SCREEN [facility] Start: 12-05-2022 Diabetes Screening Diabetes Screenin g [facility] Start: 11-21-2022 Covid-19 Vaccine () Covid-19 Vaccine () [facility] Start: 11-21-2022 Influenza vaccination Influenz a Vaccine (#1) [facility] Start: 10-22-2022 HPV TESTING HPV TESTING [facility] Start: 10-22-2022 PAP TESTING PAP TESTING [facility] Start: 10-22-2022 Screening for malign ant neoplasm of cervix [facility] Start: 06-19-2022 ANNUAL PCP TEAM INTERNET PROJECT MANAGER VIVIAN DISEASE VISIT ANNUAL PCP TEAM CHRONIC DISEASE VISIT [facility] Start: 11-21-2021 Influenza vaccination C [facility] Start: 06-19-2021 End: 08-19-2021 CBC W Auto Differential panel - Blood CBC + DIFF Lab Routine Annual physical exam Expected: 06/19/2021, Expires: 08/19/2021 [facility] Work Phone: Immunizations Immunization Date Immunization Notes Care Provider Fa [facility] 11-27-2010 influenza virus vacc ine, unspecified formulation Sobeida Prakash MD Work Phone: [facility] 11-27-2010 pneumococcal polysaccharide vaccine, 23 valent Sobeida Prakash MD Work Phone: [facility] Payers Date Payer Category Payer Unknown [id number] 2022 Unknown [employer]DE [id number] 2022-Present [phone] [address] [place] [address] Indemnity [id number] 2022 Medicaid [id number] 2020 Medicaid [employer] [id number] 2020-Present [phone] [address] [place] [address] Medicaid [id number] 2020 Medicaid [id number] Social History Date Type Detail Facility Start: 10-22-2017 End: 03-05-2022 Tobacco smoking status NHIS Occasional tobacco smoker [facility] Work Phone: End: 12-06-2016 History of tobacco use Cigarette Smoker [facility] Work Phone: Start: 10-22-2017 End: 04-08-2023 Cigarettes smoked current (pack per day) - Reported 0.5 [facility] Start: 10-22-2017 End: 03-05-2022 Tobacco use and exposure Smokeless tobacco non-user [facility] Work Phone: Start: 06-19-2021 End: 04-17-2023 Alcohol intake Current non-drinker of alcohol (finding) [facility] Start: 04-07-2017 History SDOH Alcohol Comment pt quit drinking in September [facility] Start: 01-08-2011 End: 03-05-2022 Tobacco Comment 1 pack every 3 days [facility] Start: 1975 Sex Assigned At Not on file C [facility] Start: 06-09-2021 End: 10-31-2021 Exposure to SARS-CoV-2 (event) Not sure [facility] Work Phone: Start: 06-30-2021 End: 07-10-2021 Exposure to SARS-CoV-2 (event) Yes [facility] Start: 04-08-2023 End: 04-17-2023 Tobacco use panel [facility] Adult Depression Screening Assessment 0 [facility] Clinical Notes 06-19-2021 to 04-17-2023 Grey Mina DPM - 04/17/2023 8:40 AM ESTPatient Manuela Yan APRN.DIRECTOR BIOMEDICAL ENGINEERING - 06/16/2022 2:20 PM EDTTelephone Encounter - Marie Aguillon APRN.MAINTENANCE DATA ANALYST - 06/13/2022 12:23 PM EDT Note Date & Type Note Facility 04-17-2023 History of Presen t illness Narrative Images from the original note were not included. PODIATRY OFFICE NOTE CC: left calf tear HPI: This 47 year old female with PMH indicated below presents for follow up of left ankle injury. DOI: 03/28 when she was running up stairs and missed a step. MRI with high grade lateral gastroc strain. Has been ambulating in the boot. Denies any other pedal complaints. PAST MEDICAL HISTORY Diagnosis Date Anxiety disorder Bleeding ulcer Borderline personality disorder (HCC) Bronchitis Chronic obstructive pulmonary disease (COPD) (HCC) Fracture Hepatitis C Personal history of unspecified urinary disorder Schizoaffective disorder, depressive type (HCC) Current Outpatient Medications Medication Sig Dispense Refill ibuprofen (MOTRIN) 800 mg tablet Take 1 tablet by mouth every 8 hours. Take with food. 21 tablet 0 albuterol HFA (PROVENTIL HFA, VENTOLIN HFA) 90 mcg/actuation inhaler Inhale 2-4 Puffs as instructed every 2 hours as needed for wheezing/shortness of breath. 8 g 0 albuterol HFA (VENTOLIN HFA) 90 mcg/actuation inhaler Inhale 2 Puffs as instructed every 4 hours as needed. 18 g 0 No current facility-administered medications for this visit. ALLERGIES No Known Allergies PAST SURGICAL HISTORY Procedure Laterality Date APPENDECTOMY CHOLECYSTECTOMY HX 08/19/2016 LAMINECTOMY,LUMBAR PAST SURGICAL HISTORY OF left arm PAST SURGICAL HISTORY OF tubaligation FAMILY HISTORY Problem Relation Age of Onset Heart Mother Emphysema Mother COPD Mother Asthma Mother Prostate Cancer Father Heart Father Cancer Sister cervicle Social History Tobacco Use Smoking status: Some Days Packs/day: 0.50 Years: 4.00 Additional pack years: 0.00 Total pack years: 2.00 Types: Cigarettes Last attempt to quit: 12/06/2016 Years since quittin.3 Smokeless tobacco: Never Tobacco comments: 1 pack every 3 days Vaping Use Vaping Use: Never used Substance Use Topics Alcohol use: No Alcohol/week: 28.0 standard drinks of alcohol Types: 28 Cans of beer per week Comment: pt quit drinking in September Drug use: No Comment: past crystal meth (smoked); cocaine (IV & smoked); xanax Physical Examination: On general observation patient is a pleasant, cooperative, well developed 47 year old female. The patient is alert and oriented to time, place and person. Patient has normal affect and mood. Vascular: DP and PT pulses are palpable. CFT less than 3 seconds to all digits bilateral. Skin temperature is warm to warm from proximal to distal bilateral. Hair growth is noted. Mild edema to left lower leg and ankle. No varicosities noted. Neuro: Light touch intact bilateral. Protective sensation intact at all pedal sites via [place] Giovani 5.07 monofilament bilateral. Derm: Skin texture and turgor within normal limits. Toenails normal in appearance. Webspaces 1-4 clean, dry, intact bilateral. No rashes, subcutaneous nodules, or open lesions noted. No ecchymosis. No fracture blisters. No erythema. No hyperkeratotic tissue. Musculoskeletal/Orthopaedic: There is intact plantarflexory strength of the foot against resistance, but this is painful. Resting plantarflexion intact. With the patient prone on the exam table, Shen squeeze test is negative. There is no palpable dell noted. There is pain to palpation of the Achilles tendon proximally at the myotendinous junction as well as at the gastrocnemius muscle belly. No distal pain today MRI: Left leg MRI reviewed. Achilles intact. Lateral gastroc strain. Assessment: This is a 47 year old patient presenting with left gastrocnemius tear. Plan: A history and physical examination were preformed. The patient was educated on clinical and MRI findings, diagnosis and treatment plans. Patient state that she understands all that has been explained and all questions were answered to her apparent satisfaction. Reviewed MRI with patient and educated on treatment. - Continue tall boot. Can remove heel lifts as tolerated. No weightbearing out of the boot. - Can return to work. Restrictions include: must wear boot, need to sit/rest as needed for pain, no standing for longer than 4 hours at a time, no more than 5 days a week, no pushing, pulling, or lifting more than 25 lbs Follow up in 4-6 weeks Grey Mina DPM documented in this encounter [facility] 04-09-2023 Note HNO ID: [id number] Author: HOOD SOLANO RT(Tyrell) Service: Radiology Author Type: Technologist Type: Progress Notes Filed: 04/09/2023 16:33 Note Text: Radiology Service Progress Note PATIENT NAME: Shahnaz Espana DATE OF SERVICE: April 09, 2023 TIME: 4:32 PM PATIENT IDENTITY VERIFICATION COMPLETED USING TWO (2) IDENTIFIERS: Name and Date of confirmed by patient verbally and Name and Date of confirmed by identification band. FALL SCREENING: Has the patient had 2 falls in the last year or 1 fall with injury or currently using an Ambulatory Assistive Device (Walker, Cane, Wheelchair, Crutches, etc.)? No PATIENT GENDER DATA: Female. status: : No status: NO. PATIENT RELEVANT IMPLANT DATA REVIEWED: Yes RADIOLOGY DEPARTMENT: MR; Exam(s) Completed: Lower MSK: Tib/Fib, left PERIPHERAL IV DATA: Not applicable SIGNED BY: RT Clarence(R) April 09, 2023 4:32 PM [facility] 04-08-2023 Note HNO ID: [id number] Author: GREY MINA DPM Service: ? Author Type: Physician Type: Progress Notes Filed: 04/10/2023 15:11 Note Text: PODIATRY OFFICE NOTE CC: left achilles tendon injury HPI: This 47 year old female with PMH indicated below presents complaining of left ankle injury. Patient states that the pain started suddenly on 03/28 when she was running up stairs. She missed a step and had acute calf pain. Denies any other injuries. Was unable to bear wt following the injury. Does admit to icing and elevating the ankle. Admits to swelling and ecchymosis. States she believes her symptoms are getting worse, not better. Denies any other pedal complaints. PAST MEDICAL HISTORY Diagnosis Date Anxiety disorder Bleeding ulcer Borderline personality disorder (HCC) Bronchitis Chronic obstructive pulmonary disease (COPD) ([facility]) Fracture Hepatitis C Personal history of unspecified urinary disorder Schizoaffective disorder, depressive type ([facility]) Current Outpatient Medications Medication Sig Dispense Refill ibuprofen (MOTRIN) 800 mg tablet Take 1 tablet by mouth every 8 hours. Take with food. 21 tablet 0 oxyCODONE-acetaminophen (PERCOCET) 5-325 mg tablet Take 1 tablet by mouth every 8 hours as needed for pain for up to 5 days. 15 tablet 0 albuterol HFA (PROVENTIL HFA, VENTOLIN HFA) 90 mcg/actuation inhaler Inhale 2-4 Puffs as instructed every 2 hours as needed for wheezing/shortness of breath. 8 g 0 albuterol HFA (VENTOLIN HFA) 90 mcg/actuation inhaler Inhale 2 Puffs as instructed every 4 hours as needed. 18 g 0 No current facility-administered medications for this visit. ALLERGIES No Known Allergies PAST SURGICAL HISTORY Procedure Laterality Date APPENDECTOMY CHOLECYSTECTOMY HX 08/19/2016 LAMINECTOMY,LUMBAR PAST SURGICAL HISTORY OF left arm PAST SURGICAL HISTORY OF tubaligation FAMILY HISTORY Problem Relation Age of Onset Heart Mother Emphysema Mother COPD Mother Asthma Mother Prostate Cancer Father Heart Father Cancer Sister cervicle Social History Tobacco Use Smoking status: Some Days Packs/day: 0.50 Years: 4.00 Additional pack years: 0.00 Total pack years: 2.00 Types: Cigarettes Last attempt to quit: 12/06/2016 Years since quittin.3 Smokeless tobacco: Never Tobacco comments: 1 pack every 3 days Vaping Use Vaping Use: Never used Substance Use Topics Alcohol use: No Alcohol/week: 28.0 standard drinks of alcohol Types: 28 Cans of beer per week Comment: pt quit drinking in September Drug use: No Comment: past crystal meth (smoked); cocaine (IV AND smoked); xanax Physical Examination: On general observation patient is a pleasant, cooperative, well developed 47 year old female. The patient is alert and oriented to time, place and person. Patient has normal affect and mood. Vascular: DP and PT pulses are palpable. CFT less than 3 seconds to all digits bilateral. Skin temperature is warm to warm from proximal to distal bilateral. Hair growth is noted. Mild edema to left lower leg and ankle No varicosities noted. Neuro: Light touch intact bilateral. Protective sensation intact at all pedal sites via [place] Giovani 5.07 monofilament bilateral. Derm: Skin texture and turgor within normal limits. Toenails normal in appearance. Webspaces 1-4 clean, dry, intact bilateral. No rashes, subcutaneous nodules, or open lesions noted. + ecchymosis. No fracture blisters. No erythema. No hyperkeratotic tissue. Musculoskeletal/Orthopaedic: There is intact plantarflexory strength of the foot against resistance, but this is painful. Resting plantarflexion intact. With the patient prone on the exam table, Shen squeeze test is negative. There is no palpable dell noted. There is pain to palpation of the Achilles tendon from the insertion on the calcaneus all along the achilles tendon and proximally at the myotendinous junction as well as at the gastrocnemius muscle belly. Radiographs: 2 views of the left tib fib were obtained and evaluated today. Radiographic Impression: No acute fractures or dislocations noted. No bony cysts or tumors noted. No disruption of Kager's triangle noted. Joint spaces maintained. Assessment: This is a 47 year old patient presenting with left Achilles/calf pain following an injury. Achilles appears intact. Unclear if partial tear or gastrocnemius tear. Plan: A comprehensive history and physical examination were preformed. The patient was educated on clinical and radiographic findings, diagnosis and treatment plans. Patient state that she understands all that has been explained and all questions were answered to her apparent satisfaction. - MRI of the left lower leg ordered to rule out partial achilles tear vs gastroc tear. - Tall boot with heel lifts fit and dispensed today. Advised to limit activities and be as non-weightbearing as possible until after the MRI. Follow up after (more content not included)... [facility] 04-07-2023 Note HNO ID: [id number] Author: JIMMY HANEY MD Service: ? Author Type: Physician Type: Progress Notes Filed: 04/06/2023 22:59 Note Text: This note was created using [employer]. Subjective Patient presents with: ED Follow-up Shahnaz Espana is a 47 year old female with left calf pain, swelling, and bruising that started acutely on 03/28 when she was running up the stairs carrying things. She felt she missed a step and had acute pain of the left calf that had been getting more painful and worse. Symptoms progressed, to the point she went to the ER 03/29/23, diagnosed with calf strain. She returned again 03/31 with worsening symptoms and was prescribed Percocet with temporary relief. US was negative for DVT, and xray of her LS spine showed degerative changes. Review of Systems Constitutional: Negative for chills, fatigue and fever. HENT: Negative for congestion. Eyes: Negative for visual disturbance. Respiratory: Negative for cough and shortness of breath. Cardiovascular: Negative for chest pain, palpitations and leg swelling. Gastrointestinal: Negative for abdominal pain, nausea and vomiting. Musculoskeletal: Positive for myalgias. ACTIVE PROBLEM LIST Chronic Obstructive Pulmonary Disease (Copd) (Hcc) Ibs (Irritable Bowel Syndrome) Recurrent Cold Sores Ptsd (Post-Traumatic Stress Disorder) Anxiety and Depression Ascus With Positive High Risk Hpv Cervical Cervical Strain Current Outpatient Medications Medication Sig albuterol HFA (PROVENTIL HFA, VENTOLIN HFA) 90 mcg/actuation inhaler Inhale 2-4 Puffs as instructed every 2 hours as needed for wheezing/shortness of breath. albuterol HFA (VENTOLIN HFA) 90 mcg/actuation inhaler Inhale 2 Puffs as instructed every 4 hours as needed. ibuprofen (MOTRIN) 800 mg tablet Take 1 tablet by mouth every 8 hours. Take with food. oxyCODONE-acetaminophen (PERCOCET) 5-325 mg tablet Take 1 tablet by mouth every 8 hours as needed for pain for up to 5 days. No current facility-administered medications for this visit. Objective BP 130/78 (BP Site: Left Arm, BP Position: Sitting, BP Cuff Size: Large Adult) Pulse 88 Resp 16 Wt 102.1 kg (225 lb) LMP 10/15/2017 BMI 39.86 kg/m? Physical Exam Constitutional: Appearance: She is not ill-appearing or diaphoretic. Cardiovascular: Rate and Rhythm: Normal rate and regular rhythm. Pulmonary: Effort: Pulmonary effort is normal. Musculoskeletal: General: Tenderness present. No swelling. Left hip: Normal. Left upper leg: Normal. Left knee: Swelling present. Normal range of motion. Right lower leg: No edema. Left lower leg: Swelling present. Edema present. Left ankle: Normal. Left Achilles Tendon: Normal. Left foot: Swelling present. Skin: Findings: Bruising present. Neurological: Mental Status: She is alert. Sensory: Sensation is intact. No sensory deficit. Motor: Weakness present. Gait: Gait abnormal. Deep Tendon Reflexes: Reflexes normal. Assessment and Plan 1. Rupture of left gastrocnemius tendon, subsequent encounter - ICD9: V58.89, 844.8, ICD10: S86.112D - CONSULT TO ORTHOPAEDICS - XR TIBIA FIBULA 2V AP/LAT LEFT - IBUPROFEN 800 MG TABLET - OXYCODONE-ACETAMINOPHEN 5 MG-325 MG TABLET Risks of opioids were reviewed. - Minimize weight bearing. Use crutch provided by the ER. Jimmy Haney MD [facility] 08-27-2022 Note Patient Outreach (IN [facility]) SHAHNAZ ESPANA ([id number]) 1975 F Date Time Provider Department 08/27/22 SOBEIDA PRAKASH During your visit today, we recorded the following information about you: Allergies As of Date: 08/27/2022 (No Known Allergies) Date Reviewed: 05/28/2022 Reviewed by: Renetta Forman - Fully Assessed Visit Diagnosis:Encounter for screening mammogram for breast cancer [Z12.31] Order(s):[facility] SCREENING [[id number]] Order #: [id number] FUTURE Prescriptions as of 09/01/2022 - predniSONE [...] Cervical strain [S16.1XXA] 04/17/2020 Encounter Status:Closed by Qardio PRODUSER on 09/01/22 [facility] 06-16-2022 Note HNO ID: [id number] Author: Latha Yan APRN.DIRECTOR BIOMEDICAL ENGINEERING Service: ? Author Type: Nurse Specialist Type: [...] diagnosis) (R11.0) Nausea (J44.1) COPD with exacerbation ([facility]) ASSESSMENT/PLAN: 1. Recurrent cold sores - ICD9: [...] Medical Decision Making Level: 4 - Moderate [facility] 06-16-2022 Instructions Latha Yan APRN.CNS - 06/16/2022 [...] couple of days documented in this encounter [facility] 06-16-2022 History of Presen t illness [...] 4 - Moderate documented in this encounter [facility] 06-13-2022 Miscellaneous Notes Noted. Marie Aguillon [...] lip and needs today. Please send to [facility] today. Patient has been identified by name and birthdate. Duration of symptoms: N/A Person calling: self Call patient at: on cell [phone] (home) [phone] (cell) Was an appointment scheduled: No Closing statement: Results or non-symptom based questions: Thank you for calling [facility], your call will be returned within the next business day. Janet Abreu Pss documented in this encounter [facility] 06-03-2022 Miscellaneous Notes Pt called and [...] Deanna Rodas LPN documented in this encounter [facility] 05-28-2022 Note HNO ID: [id number] Author: Ora Ryan APRN.MAINTENANCE DATA ANALYST Service: ? Author Type: Nurse Practitioner Type: [...] 787.02, ICD10: R (more content not included)... [facility] 05-28-2022 Miscellaneous Notes Filled in another encounter Shonda Aguillon APRN.CNP Patient calling she started new medication from her Psych and is making her dizzy. she has notified them. Patient is asking for zofran rx. Patient uses [facility] for her pharmacy. Patient goes to work at 2 pm today needing it quickly. Pending rx to file. Please advise documented in this encounter [facility] 05-12-2022 Miscellaneous Notes Patient has not [...] and to center of back. Went to [facility] 2-15 who r/o heart causes and [...] sure 10. : No Protocols used: Chest [id number] documented in this encounter [facility] 11-08-2021 Miscellaneous Notes Urgent care eval [...] recommend. Please advise. documented in this encounter [facility] 08-09-2021 Miscellaneous Notes Patient has been [...] pharmacy. No need to notify patient. Janet Abreu Pss documented in this encounter [facility] 07-10-2021 Miscellaneous Notes Mailbox is full. Please let patient know Zofran prescription has been sent as requested. Thank you Marie Aguillon APRN.GILMA Patient calls in to report she was diagnosed with Covid on ThursdayJuly [address] [facility]. She reports that her symptoms include nausea, fever, sore throat, dizziness, brain fog, fatigue, body aches, loss of taste, loss of smell, and SOB with exertion. Patient utilizing OTC medications for fever/aches. Patient reports her worst symptom is nausea and is requesting an order for Zofran be sent to [facility]? Patient also requested upcoming appointment be changed to virtual on 07/17. Changed per request. Please review and advise, Rupali Clemente RN documented in this encounter [facility] 06-19-2021 History of Presen t illness [...] doing well after that. 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 stress, personal stressors of body image, back [...] diet of 1000 mg/day for under 50, 9280-3626 mg/day for 50+ - CBC + DIFF [...] Sobeida Prakash MD documented in this encounter [facility] Diagnosis Encounter for screening mammogram for breast cancer [facility] Diagnosis Nausea Nausea alone [facility] Diagnosis Recurrent cold sores Herpes simplex without mention of complication [facility] Diagnosis Recurrent cold sores- Primary Herpes simplex without mention of complication Nausea Nausea alone COPD with exacerbation (HCC) Obstructive chronic bronchitis with exacerbation [facility]* Diagnosis Rupture of left gastrocnemius tendon, subsequent encounter [facility]ative[facility] Diagnostic Procedure Only (Routine) - Pending Review Specialty Diagnoses / Procedures Referred By Lana aguiar Referred To Contact [facility] Diagnoses Encounter for screening mammogram for breast cancer Procedures ИРИНА SCREENING SCREENING MAMMOGRAPHY BI 2-VIEW BREAST INC CAD Sobeida Prakash MD [address] [place] [address] [facility] [address] [place] [address] Referral ID Status Reason Start Date Expiration Date Visits Requested Visits Authorized [id number] Pending Review Auto-Generat ed Referral 09/18/2021 10/18/2022 1 1 [facility] Summary Purpose Family History No Family History Records FoundNo Family History Records FoundNo Family History Records FoundNo Family History Records Found Advance Directives Documents on File Type Date Recorded 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 Advance Directive(s) Documents on File Type Date Recorded 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 Advance Directive(s) Reason for Referral Specialty Diagnoses / Procedures Referred By Contac t Referred To Contact Diagnoses COPD with exacerbation (HCC) Latha Yan, CLAUDETTE.DIRECTOR BIOMEDICAL ENGINEERING [address] [place] [address] Referral ID Status Reason Start Date Expiration Date Visits Re quested Visits Authorized [id number] Closed 1 1 Additional Source Comments INFORMATION SOURCE (unrecogn ized section and content) DATE CREATED AUTHOR AUTHOR'S ORGANIZ ATION 03/02/2018 [facility] DATE CREATED AUTHOR AUTHOR'S ORGANIZ ATION 04/07/2023 [facility] DATE CREATED AUTHOR AUTHOR'S ORGANIZ ATION 04/18/2023 [facility] Source Comments (unrecognize d section and content) In the event this informatio n is protected by the Federal Confidentiality of Alcohol and Drug Abuse Patient Records regulations: The Federal rules restrict any use of the information to criminally investigate or prosecute any alcohol or drug abuse patient.[facility] the event this information is protected by the Federal Confidentiality of Alcohol and Drug Abuse Patient Records regulations: The Federal rules restrict any use of the information to criminally investigate or prosecute any alcohol or drug abuse patient.[facility] the event this information is protected by the Federal Confidentiality of Alcohol and Drug Abuse Patient Records regulations: The Federal rules restrict any use of the information to criminally investigate or prosecute any alcohol or drug abuse patient.[facility] the event this information is protected by the Federal Confidentiality of Alcohol and Drug Abuse Patient Records regulations: The Federal rules restrict any use of the information to criminally investigate or prosecute any alcohol or drug abuse patient.[facility] the event this information is protected [...] or prosecute any alcohol or drug abuse patient.[facility] the event this information is protected by the Federal Confidentiality of Alcohol and Drug Abuse Patient Records regulations: The Federal rules restrict any use of the information to criminally investigate or prosecute any alcohol or drug abuse patient.[facility] the event this information is protected by the Federal Confidentiality of Alcohol and Drug Abuse Patient Records regulations: The Federal rules restrict any use of the information to criminally investigate or prosecute any alcohol or drug abuse patient.[facility] the event this information is protected by the Federal Confidentiality of Alcohol and Drug Abuse Patient Records regulations: The Federal rules restrict any use of the information to criminally investigate or prosecute any alcohol or drug abuse patient.[facility] the event this information is protected by the Federal Confidentiality of Alcohol and Drug Abuse Patient Records regulations: The Federal rules restrict any use of the information to criminally investigate or prosecute any alcohol or drug abuse patient.[facility] the event this information is protected by the Federal Confidentiality of Alcohol and Drug Abuse Patient Records regulations: The Federal rules restrict any use of the information to criminally investigate or prosecute any alcohol or drug abuse patient.[facility] Reason for Visit (unrecogniz ed section and content) Reason Comments Covid19 Concern Reason Onset Date Comments Refill Request 08/09/2021 Out of medicatio n Reason Comments Abdominal Pain Reason Comments right chest pain Reason Comments Medication Request Reason Comments Nausea & Vomiting Cough Reason Comments Medication Request acyclovir (ZOVIRAX) 400 mg tablet Reason Comments Dizziness Cough Reason Comments Established Patient Follow Up Pain Results - Mri Specialty Diagnoses / Procedures Referred By Contac t Referred To Contact ORTHOPAEDIC SURGERY Diagnoses Injury of Achilles tendon. Procedures Injury of Achilles tendon. Grey Mina DPM [address] [place] [address] Robert Gates [address] [place] [address] Referral ID Status Reason Start Date Expiration Date Visits Requested Visits Authorized [id number] Ref Not Required OON/Self Pay Override 04/09/2023 07/17/2024 1 1 Care Teams (unrecognized sec tion and content) Training Executive Relationship Specialty Start Date End Date Sobeida Prakash MD [address] [place] [address] PCP - General Internal Medicine 04/07/17 Training Executive Relationship Specialty Start Date End Date Sobeida Prakash MD [address] [place] [address] PCP - General Internal Medicine 04/07/17 Training Executive Relationship Specialty Start Date End Date Sobeida Prakash MD [address] [place] [address] PCP - General Internal Medicine 04/07/17 Training Executive Relationship Specialty Start Date End Date Sobeida Prakash MD [address] [place] [address] PCP - General Internal Medicine 04/07/17 Training Executive Relationship Specialty Start Date End Date Sobeida Prakash MD [address] [place] [address] PCP - General Internal Medicine 04/07/17 Training Executive Relationship Specialty Start Date End Date Sobeida Prakash MD [address] [place] [address] PCP - General Internal Medicine 04/07/17 Training Executive Relationship Specialty Start Date End Date Sobeida Prakash MD [address] [place] [address] PCP - General Internal Medicine 04/07/17 Training Executive Relationship Specialty Start Date End Date Sobeida Prakash MD [address] [place] [address] PCP - General Internal Medicine 04/07/17 Training Executive Relationship Specialty Start Date End Date Sobeida Prakash MD [address] [place] [address] PCP - General Internal Medicine 04/07/17 Nithya Sheth NP [address] [place] [address] Referring Family Medicine 03/26/23 FOR RECORDS PERTAINING TO PATIENTS WHO ARE [...] BE BASED ON THE PRIMARY CLINICAL RECORDS. [employer] provides no warranty or guarantee of the accuracy or completeness of information in this document.
--- NOTE | 2023-05-08 18:17 | CT_ITS ---
STUDY: CT BRAIN WITHOUT CONTRAST REASON FOR EXAM: Female, 47 years old. Headache, nausea RADIATION DOSAGE (If Supplied By Facility): CTDIvol = ( 44.99 ) mGy, DLP = ( 779.24 ) mGycm TECHNIQUE: Transaxial CT imaging of the brain was performed without administration of intravenous contrast material. Individualized dose optimization techniques were used for this CT. COMPARISON: September 23, 2016 FINDINGS: Normal soft tissue structures. Normal calvarium. Normal size ventricles and extra-axial spaces for the patient''s age. Normal white matter tracts of the cerebral hemispheres. Normal basal ganglia and thalami. Normal brainstem. Normal cerebellum. There is no intracranial hemorrhage. There are no findings of an acute ischemic infarction. Normal visualized paranasal sinuses. Tiny bilateral retinal calcifications of uncertain etiology stable since previous exam CT/Brain/Head without Contrast IMPRESSION: No acute abnormalities unchanged since prior exam. Electronically Signed: Jerzy Varghese MD at 19:18 EST ,
--- NOTE | 2023-05-08 18:17 | EKG12_ITS ---
Test Reason : DYSRHYTHMIA Blood Pressure : / mmHG Vent. Rate : 054 BPM Atrial Rate : 054 BPM P-R Int : 174 ms QRS Dur : 078 ms QT Int : 406 ms P-R-T Axes : 024 069 027 degrees QTc Int : 385 ms Sinus bradycardia Otherwise normal ECG Confirmed by Dagoberto Silver ([id number]), subeditor TELLO SCHUMACHER ([id number]) on 05/11/2023 9:48:25 AM Referred By: Confirmed By:Dagoberto Silver
[2023-05-08] MEDS: 0.9% Normal Saline (1000mL) 1,000 ML 1000 ML IV (18:43)
[2023-05-08] MEDS: Ondansetron 4 MG/2 ML Vial IV (18:43)
--- NOTE | 2023-05-08 18:53 | RAD_ITS ---
STUDY: X-RAY CHEST REASON FOR EXAM: Female, 47 years old. Cough TECHNIQUE: AP portable COMPARISON: May 07, 2022 FINDINGS: The lungs are clear and expanded. There is no demonstrated pleural abnormality. Normal size heart. Normal mediastinum and violetta. Normal visualized pulmonary arteries. Normal visualized aortic arch and descending thoracic aorta. Normal visualized thoracic spine. Normal visualized ribs, clavicles, and shoulders. There is no demonstrated abnormality of the visualized soft tissue structures of the upper abdomen. RAD/Chest 1 View (Portable) IMPRESSION: Normal x-ray examination of the chest. Electronically Signed: Jerzy Varghese MD at 19:13 EST ,
[2023-05-08 18:57] LABS: Bacteria 0 SEEN /hpf (None Seen); Mucous, Urine 0 SEEN /hpf (<or=2+); Red Blood Cells-Urine 0 SEEN /hpf (0-5)
[2023-05-08 19:00] LABS: Absolute Lymphocyte Count 3.81 X10^3/uL (0.83-4.51); Absolute Neutrophil Count 8.3 X10^3/uL (2.0-7.7); Basophil# 0.05 X10^3/uL; Basophil% 0.4 % (0-1); Eosinophil# 0.08 X10^3/uL; Eosinophils% 0.6 % (0-5); Hematocrit 42.7 % (37-47); Hemoglobin 13.1 g/dL (12.0-15.0); Lymphocyte # 3.81 X10^3/ul (0.83-4.51); Lymphocyte % 29.7 % (19-41); Mean Corp Hgb Conc 30.7 g/dL (32-36); Mean Corpuscular Hgb 28.2 pg (27.0-32.0); Monocyte# 0.58 X10^3/uL; Monocyte% 4.5 % (0-10); NRBC Flagged by Analyzer 0 % (0-5); Neutrophil # 8.28 X10^3/uL (2.7-7.7); Neutrophil % 64.5 % (47-70); Platelet Count 318 K/mm3 (150-450); RBC Distribution Width CV 13.5 % (11.6-14.6); RBC Distribution Width SD 45.3 fl (35.1-43.9); Red Blood Count 4.64 M/mm3 (4.2-5.4); White Blood Count 12.8 K/mm3 (4.4-11.0)
[2023-05-08 19:02] LABS: Color, Urine Yellow (Yellow); Glucose, Dipstick Normal (Normal); Ketone-Dipstick Negative (Negative); Leukocyte Esterase-Dipstick Negative /ul (Negative); Nitrite-Dipstick Negative (Negative); Occult Blood-Urine Negative /ul (Negative); Protein-Dipstick Negative (Negative); Specific Gravity, Urine 1.015 (1.002-1.030); Urine Bilirubin Dipstick Negative (Negative); Urine Clarity Clear (Clear); Urine Urobilinogen 1 mg/dl (Normal); Urine pH 6.5 (5.0 - 8.0)
[2023-05-08 19:21] LABS: ALB/GLOB Ratio 0.9 RATIO (0.9-2.4); AST(SGOT) 40 U/L (15-37); Alanine Aminotransfer ALT/SGPT 67 U/L (13-56); Albumin, Serum 3.6 g/dL (3.2-5.0); Alkaline Phosphatase 96 U/L (45-117); Anion Gap 4 (5-15); BUN 8 mg/dL (7-18); BUN/Creat Ratio 13.2 RATIO (10-20); Calcium,Total 9.2 mg/dL (8.5-10.1); Chloride 108 mmol/L (98-107); EST Glomerular Filtration Rate 112 mL/min (>60); Est Glom Filt Rate - Afr Amer 136 mL/min (>60); Estimated Creatinine Clearance 131.71 ml/min; Glucose 87 mg/dL (74-106); Lipase 58 U/L (13-75); Potassium 3.9 mmol/L (3.5-5.1); Protein, Total 7.6 g/dL (6.4-8.2); Sodium Level 140 mmol/L (136-145); Squamous Epithelial Cells - UA 5-10 SEEN /hpf (5-10); Troponin-I HS 3 pg/mL (3.0-54.0); White Blood Cells 0-5 SEEN /hpf (0-5)
[2023-05-08 19:31] LABS: Internal QC Validated? YES +Cl - CLEAR BKGD; Pregnancy, Urine Negative Negative
[2023-05-08] MEDS: Metoclopramide 10 MG/2 ML Vial 5 MG IV (19:47)
[2023-05-08 19:48] VITALS: BP 127/72; PULSE 55; RESP 12; O2SAT 99
[2023-05-08 20:52] VITALS: BP 117/71; PULSE 81; RESP 16; TEMP 36.8; O2SAT 97
== END 2023-05-08 21:07 | disposition home or self-care (01) ==
PROVIDERS: Emergency Provider Emergency Medicine; PCP Internal Medicine; Visit Provider Emergency Medicine
DX: R11.2 Nausea with vomiting, unspecified (principal); J44.9 Chronic obstructive pulmonary disease, unspecified; R74.01 Elevation of levels of liver transaminase levels; R51.9 Headache, unspecified; D72.829 Elevated white blood cell count, unspecified; F17.210 Nicotine dependence, cigarettes, uncomplicated; F17.290 Nicotine dependence, other tobacco product, uncomplicated
CPT/HCPCS: 70450; 71045; 80053; 81001; 81025; 83690; 84484; 85025; 87631; 93005; 96361; 96374; 96375; 99284; J7030; J2405

== ENCOUNTER 2023-06-22 13:50 | Emergency (ER) | payer OTHER, SELFPAY ==
[2023-06-22 13:52] VITALS: BP 141/90; PULSE 85; RESP 16; TEMP 35.8; O2SAT 98; BMI 38.9
[2023-06-22 13:55] VITALS: BP 141/90; PULSE 85; RESP 16; TEMP 35.8; O2SAT 98
[2023-06-22 14:06] VITALS: O2SAT 98
--- NOTE | 2023-06-22 14:31 | EX.ED.VIS.UR ---
HPI HPI - URI History of Present Illness Chief Complaint: Cough Informant: patient Onset/Context/Timing Onset: Yesterday Context: Sudden Onset Timing: Continuous Quality: Tightness Location: Chest Worsened by: - (Nothing) Relieved by: - (Nothing) Associated Symptoms Associated Symptoms: Positive for Headache, Myalgias, Vomiting (After coughing episodes), Diarrhea, Shortness of Breath, Chest Pain and Productive Cough (Clear sputum); Negative for Nasal Congestion or Sinus Pressure Narrative Narrative: Patient presents with cough and congestion that has been getting progressively worse since last night. Patient states she feels tightness in her chest. Patient states that has been constant. Patient states nothing makes it better nothing makes it worse. Patient states she is coughing up some clear sputum. Patient states she feels short of breath at times. Patient states that she has had some vomiting after coughing episodes. Patient also admits to some diarrhea. Patient also admits to headache and generalized myalgias. ROS ROS ED Constitutional Constitutional ED: Reports chills and subjective; Denies fever(s) Eyes Eyes: Denies blurry vision or change in vision ENT ENT ED: Reports rhinorrhea and sore throat Cardiovascular Cardiovascular: Reports chest pain; Denies palpitations Respiratory/Chest Respiratory/Chest: Reports cough and dyspnea Gastrointestinal Gastrointestinal: Reports diarrhea and vomiting; Denies nausea Genitourinary Genitourinary ED: Denies dysuria or hematuria Musculoskeletal Musculoskeletal: Reports myalgias; Denies back pain or neck pain Integumentary Denies abscess or rash Neurologic Neurologic: Reports headache(s); Denies weakness Allergic/Immunologic Allergic/Immunologic ED: Denies mouth swelling or urticaria PFSH PFS Medical History Alcohol use Anxiety Asthma Bipolar disorder Carpal tunnel syndrome Chronic cough Chronic pain COPD (chronic obstructive pulmonary disease) Easy bruising Hepatitis Hepatitis C Herniated cervical disc History of herniated intervertebral disc History of IBS History of stress test Hx of degenerative disc disease Injury of back Leg cramps Lumbar radicular pain MARIA INES (obstructive sleep apnea) Peptic ulcer Polysubstance abuse Schizoaffective disorder, bipolar type Schizophrenia Shortness of breath on exertion Smoker Tobacco use (Unknown) Ulnar nerve laceration Wears glasses Home Medications rajdmnks-jlfpccm-ioi-iron 18 mg-FA 400 mcg-vit K 80 mcg-hrb#244 tablet ([employer]) 1 tab PO DAILY supplement 10/16/17 [History Last Taken 10/15/17] acetaminophen 500 mg tablet 1,000 mg PO Q8H PRN Pain 07/05/21 [History Last Taken Unknown] albuterol sulfate 90 mcg/actuation aerosol inhaler (Ventolin HFA) 2 puff inhalation Q4H PRN PRN Wheezing ##1 07/05/21 [Rx Last Taken Unknown] ibuprofen 800 mg tablet 800 mg PO TID PRN pain #30 tabs 09/10/21 [Rx Last Taken Unknown] metoclopramide HCl 5 mg tablet (Reglan) 5 mg PO Q8H PRN PRN nausea and vomiting 7 days #21 tabs 05/08/23 [Rx Last Taken Unknown] albuterol sulfate 90 mcg/actuation aerosol inhaler (Ventolin HFA) 1 - 2 puff inhalation Q4H PRN PRN Wheezing ##1 06/22/23 [Rx Last Taken Unknown] benzonatate 100 mg capsule 200 mg (2 x 100 mg) PO TID PRN PRN Cough #20 CAPSULES 06/22/23 [Rx Last Taken Unknown] Allergy/AdvReac Type Severity Reaction Status Date / Time hydrocodone Allergy Intermediate Hives Verified 06/22/23 13:55 Surgical History History of appendectomy History of back surgery History of back surgery History of cholecystectomy History of decompression of ulnar nerve History of lumbar laminectomy History of tubal ligation Social History household members: none housing: house Smoking Status: Current every day smoker tobacco type: cigarettes and e-cigarettes substance use type: does not use EXAM Physical Exam Const Vital Signs: 06/22/23 13:52 06/22/23 13:52 06/22/23 13:55 Temperature 96.4 F L 96.4 F L 96.4 F L Temperature Source Temporal Temporal Temporal Pulse Rate 85 85 85 Respiratory Rate 16 16 16 Respiratory Effort Respiratory Depth Respiratory Pattern Blood Pressure 141/90 H 141/90 H 141/90 H Blood Pressure Mean 107 107 107 Pulse Ox 98 98 98 Oxygen Delivery Method Room Air Room Air Room Air 06/22/23 14:06 06/22/23 14:37 Temperature Temperature Source Pulse Rate 85 Respiratory Rate 20 H Respiratory Effort Normal Respiratory Depth Normal Respiratory Pattern Normal Blood Pressure Blood Pressure Mean Pulse Ox Oxygen Delivery Method Room Air Positive well nourished and well developed General Appearance ED: well developed and NAD HEENT Reports moist mucous membranes normocephalic and atraumatic Neck supple, no meningeal signs and no JVD Resp normal respiratory effort Auscultation: wheezes expiratory wheezes and throughout Cardio Rate: regular rate Rhythm: regular rhythm GI non-tender and non-distended Palpation: soft Extremity normal to inspection and full ROM General Extremety ED: Negative for tenderness Neuro oriented x3, CN's II-XII intact bilaterally and no sensory deficits noted Sensorium / Orientation: alert Psych mental status grossly normal MDM MDM MDM Narrative Medical decision making narrative: Differential diagnosis includes pneumonia and viral illness. Chest x-ray will be obtained to assess for pneumonia. COVID-19, influenza, and RSV PCR will be obtained to assess for viral infection. Lab Data Lab results narrative: COVID-19 PCR was reviewed and was negative. Influenza PCR was reviewed and was negative for influenza A and influenza B. RSV PCR was reviewed and was negative. Radiography Diagnostic Testing: Clinical Impression(s) from Imaging Studies Chest X-Ray 06/22/23 15:05 IMPRESSION: Stable mild hyperinflation with no acute or active cardiopulmonary disease. Electronically Signed: Jesse Gómez MD at 15:19 EDT , PA and lateral chest x-ray was obtained. There are 2 views. On my independent interpretation, lung lakhani are clear. There is normal cardiac silhouette. Bony thorax is normal. There is no acute process noted. Radiologist also interpreted the x-ray and agrees. Treatment and Re-Evaluation Narrative: Patient was given a DuoNeb here. Patient was also given Tylenol and Tessalon. Patient was advised of her findings. Patient is feeling better on reevaluation. Patient was given a prescription for an albuterol inhaler. Patient was given a prescription for Tessalon Perles. Patient was instructed to follow-up with her primary care physician in 5 to 7 days. Patient understood and was agreeable with the plan. All questions were answered. Discharge Plan Triage Chief Complaint: Cough ED Provider: Brayan Guzmán Dx/Rx/DC Orders Clinical Impression: Viral upper respiratory tract infection with cough, Obesity (BMI 30-39.9) Instructions: ED URI, Viral, No Abx (Adult) Prescriptions: New benzonatate [benzonatate] 100 mg capsule 200 mg PO TID PRN PRN (Reason: Cough) Qty: 20 0RF albuterol sulfate [Ventolin HFA] 90 mcg/actuation HFA aerosol inhaler 1 - 2 puff inhalation Q4H PRN PRN (Reason: Wheezing) Qty: 1 0RF No Action [employer] 1 EACH tablet 1 tab PO DAILY acetaminophen 500 mg tablet 1,000 mg PO Q8H PRN (Reason: Pain) albuterol sulfate [Ventolin HFA] 1 INHALER inhaler 2 puff inhalation Q4H PRN PRN (Reason: Wheezing) Qty: 1 0RF ibuprofen 800 mg tablet 800 mg PO TID PRN (Reason: pain) Qty: 30 0RF metoclopramide HCl [Reglan] 5 mg tablet 5 mg PO Q8H PRN PRN (Reason: nausea and vomiting) 7 Days Qty: 21 0RF Primary Care Provider: Sobeida Berger Referrals: Sobeida Berger MD [Primary Care Provider] - 5-7 Days Disposition Disposition: Home, Self Care
[2023-06-22 14:37] VITALS: PULSE 85; RESP 20
[2023-06-22] MEDS: Ipratropium/Albuterol Sulfate 3 ML AMPUL.NEB INHALATION (14:37)
--- NOTE | 2023-06-22 15:05 | RAD_ITS ---
STUDY: X-RAY CHEST REASON FOR EXAM: Female, 48 years old. Cough. TECHNIQUE: Frontal and lateral views of the chest. COMPARISON: 05/08/2023 FINDINGS: Stable mild hyperinflation. There is no demonstrated pleural abnormality. Normal size heart. Normal mediastinum and violetta. Normal visualized pulmonary arteries. Normal visualized aortic arch and descending thoracic aorta. Normal visualized thoracic spine. Normal visualized ribs, clavicles, and shoulders. No abnormality of the visualized soft tissue structures of the upper abdomen. RAD/Chest PA and Lateral IMPRESSION: Stable mild hyperinflation with no acute or active cardiopulmonary disease. Electronically Signed: Jesse Gómez MD at 15:19 EDT ,
[2023-06-22] MEDS: Acetaminophen 500 MG Tablet 1000 MG PO (15:18)
[2023-06-22] MEDS: Benzonatate 100 MG Capsule 200 MG PO (15:18)
[2023-06-22 16:00] VITALS: BP 120/76; PULSE 68; RESP 14; O2SAT 99
--- NOTE | 2023-06-22 16:19 | ED.RN ---
1619: I went into the patients room with discharge papers and instructions and there was no patient in the room. The two bathrooms on the unit were also vacant. I was unable to provide discharge instruction d/t patient leaving.
== END 2023-06-22 16:24 | disposition home or self-care (01) ==
PROVIDERS: Emergency Provider Emergency Medicine; PCP Internal Medicine; Visit Provider Emergency Medicine
DX: J06.9 Acute upper respiratory infection, unspecified (principal); F20.9 Schizophrenia, unspecified; J44.9 Chronic obstructive pulmonary disease, unspecified; F17.210 Nicotine dependence, cigarettes, uncomplicated; E66.9 Obesity, unspecified; F17.290 Nicotine dependence, other tobacco product, uncomplicated; G47.33 Obstructive sleep apnea (adult) (pediatric)
CPT/HCPCS: 71046; 87631; 94640; 99283

== ENCOUNTER 2023-06-26 16:06 | Observation (INO) | payer OTHER, MEDICAID, SELFPAY ==
[2023-06-26] VITALS (12 sets, daily range): BP systolic 141–160; BP diastolic 82–106; PULSE 79–103; RESP 14–26; TEMP 36.5–37.2; O2SAT 90–99; BMI 39.2; BMI 38.1
--- NOTE | 2023-06-26 16:38 | EX.ED.DYSGE1 ---
HPI <BANG Khan - Last Filed: 06/26/23 18:15> History of Present Illness Chief Complaint: Shortness of Breath Narrative Narrative: 48-year-old female with a past medical history of COPD and is a former smoker. 6 days ago she developed a productive cough with wheezing and shortness of breath. She was seen in the ED on 06/22 and states she had a normal chest x-ray and negative covid/flu/rsv test was prescribed an albuterol inhaler and Tessalon Perles. Her cough worsened and feels like it settled in her chest and she is coughing a lot and short of breath when lying down. She has vomited after coughing fits. She feels hot and cold but has no documented fever. PFSH <BANG Khan - Last Filed: 06/26/23 18:15> [facility] Medical History Alcohol use Anxiety Asthma Bipolar disorder Carpal tunnel syndrome Chronic cough Chronic pain COPD (chronic obstructive pulmonary disease) Easy bruising Hepatitis Hepatitis C Herniated cervical disc History of herniated intervertebral disc History of IBS History of stress test Hx of degenerative disc disease Injury of back Leg cramps Lumbar radicular pain MARIA INES (obstructive sleep apnea) Peptic ulcer Polysubstance abuse Schizoaffective disorder, bipolar type Schizophrenia Shortness of breath on exertion Smoker Tobacco use (Unknown) Ulnar nerve laceration Wears glasses Home Medications tofrntlt-gcvfxbg-lwd-iron 18 mg-FA 400 mcg-vit K 80 mcg-hrb#244 tablet ([employer]) 1 tab PO DAILY supplement 10/16/17 [History Last Taken 10/15/17] acetaminophen 500 mg tablet 1,000 mg PO Q8H PRN Pain 07/05/21 [History Last Taken Unknown] albuterol sulfate 90 mcg/actuation aerosol inhaler (Ventolin HFA) 2 puff inhalation Q4H PRN PRN Wheezing ##1 07/05/21 [Rx Last Taken Unknown] ibuprofen 800 mg tablet 800 mg PO TID PRN pain #30 tabs 09/10/21 [Rx Last Taken Unknown] metoclopramide HCl 5 mg tablet (Reglan) 5 mg PO Q8H PRN PRN nausea and vomiting 7 days #21 tabs 05/08/23 [Rx Last Taken Unknown] albuterol sulfate 90 mcg/actuation aerosol inhaler (Ventolin HFA) 1 - 2 puff inhalation Q4H PRN PRN Wheezing ##1 06/22/23 [Rx Last Taken Unknown] benzonatate 100 mg capsule 200 mg (2 x 100 mg) PO TID PRN PRN Cough #20 CAPSULES 06/22/23 [Rx Last Taken Unknown] Allergy/AdvReac Type Severity Reaction Status Date / Time hydrocodone Allergy Intermediate Hives Verified 06/26/23 16:06 Surgical History History of appendectomy History of back surgery History of back surgery History of cholecystectomy History of decompression of ulnar nerve History of lumbar laminectomy History of tubal ligation Social History household members: none housing: house Smoking Status: Current every day smoker tobacco type: cigarettes and e-cigarettes substance use type: does not use ROS <BANG Khan - Last Filed: 06/26/23 18:15> ROS ED ROS Narrative Constitutional: Negative for fever, chills. CVS: Negative for palpitations. Respiratory: Positive for shortness of breath, cough, orthopnea. EXAM <BANG Khan - Last Filed: 06/26/23 18:15> Physical Exam Narrative Exam Narrative: CONST: Patient sitting in no acute distress. EYES: Normal inspection. NECK: Normal inspection. RESP: Diffuse expiratory wheezing and coarse sounds. CVS: Regular rate and rhythm, no murmur, no gallop. SKIN: Color normal, no rash, warm, dry, intact. EXTREMITIES: Normal appearance, no pedal edema. NEURO: Oriented x4. PSYCH: Normal affect. Const Vital Signs: 06/26/23 16:06 06/26/23 16:06 06/26/23 16:11 Temperature 99 F 99 F Temperature Source Temporal Oral Pulse Rate 103 H 102 H 102 H Respiratory Rate 18 14 14 Respiratory Effort Respiratory Depth Respiratory Pattern Blood Pressure 141/99 H 143/106 H 143/106 H Blood Pressure Mean 113 118 118 Pulse Ox 90 91 99 Oxygen Delivery Method Room Air Room Air Room Air 06/26/23 16:34 06/26/23 16:46 06/26/23 17:11 Temperature 98.5 F Temperature Source Temporal Pulse Rate 95 88 Respiratory Rate 24 H 18 Respiratory Effort Normal Respiratory Depth Normal Respiratory Pattern Normal Blood Pressure 144/83 H Blood Pressure Mean 103 Pulse Ox 94 Oxygen Delivery Method 06/26/23 17:40 06/26/23 17:40 06/26/23 18:00 Temperature 98.5 F Temperature Source Temporal Pulse Rate 95 88 Respiratory Rate 18 26 H Respiratory Effort Respiratory Depth Respiratory Pattern Blood Pressure 145/82 H Blood Pressure Mean 103 Pulse Ox 98 96 Oxygen Delivery Method Room Air Room Air 06/26/23 18:06 Temperature Temperature Source Pulse Rate 88 Respiratory Rate 26 H Respiratory Effort Respiratory Depth Respiratory Pattern Blood Pressure 145/82 H Blood Pressure Mean 103 Pulse Ox 96 Oxygen Delivery Method Room Air <Dr. Donovan Jackson MD - Last Filed: 06/26/23 18:20> Physical Exam Const Vital Signs: 06/26/23 16:06 06/26/23 16:06 06/26/23 16:11 Temperature 99 F 99 F Temperature Source Temporal Oral Pulse Rate 103 H 102 H 102 H Respiratory Rate 18 14 14 Respiratory Effort Respiratory Depth Respiratory Pattern Blood Pressure 141/99 H 143/106 H 143/106 H Blood Pressure Mean 113 118 118 Pulse Ox 90 91 99 Oxygen Delivery Method Room Air Room Air Room Air 06/26/23 16:34 06/26/23 16:46 06/26/23 17:11 Temperature 98.5 F Temperature Source Temporal Pulse Rate 95 88 Respiratory Rate 24 H 18 Respiratory Effort Normal Respiratory Depth Normal Respiratory Pattern Normal Blood Pressure 144/83 H Blood Pressure Mean 103 Pulse Ox 94 Oxygen Delivery Method 06/26/23 17:40 06/26/23 17:40 06/26/23 18:00 Temperature 98.5 F Temperature Source Temporal Pulse Rate 95 88 Respiratory Rate 18 26 H Respiratory Effort Respiratory Depth Respiratory Pattern Blood Pressure 145/82 H Blood Pressure Mean 103 Pulse Ox 98 96 Oxygen Delivery Method Room Air Room Air 06/26/23 18:06 Temperature Temperature Source Pulse Rate 88 Respiratory Rate 26 H Respiratory Effort Respiratory Depth Respiratory Pattern Blood Pressure 145/82 H Blood Pressure Mean 103 Pulse Ox 96 Oxygen Delivery Method Room Air MDM <BANG Khan - Last Filed: 06/26/23 18:15> MDM MDM Narrative Medical decision making narrative: Differential: Viral URI, COPD exacerbation, pneumonia Patient has 6 days of productive cough, wheezing, and dyspnea. She is a former smoker with COPD. She appears well and nontoxic and has stable vital signs. HR is around 100 and she is 95% or above on room air but has conversationan dyspnea and diffuse expiratory wheezing and coarse lung sounds. I reviewed her prior visit with negative COVID/flu/influenza swab and chest x-ray. Repeat CXR today shows no interval change. She was treated with p.o. prednisone and a DuoNeb treatment. She felt improved but is still wheezing and was given repeat albuterol treatment. After treatment while ambulating she is very winded and drops to 85% on room air. She returned to 94% at rest. Advised patient be admitted for further aerosols and steroids for COPD exacerbation with hypoxia and she is agreeable. Case was discussed with the hospitalist for admission. Radiography Diagnostic Testing: Clinical Impression(s) from Imaging Studies Chest X-Ray 06/26/23 17:05 IMPRESSION: Normal x-ray examination of the chest. Electronically Signed: Ilan Mehta MD at 17:17 EDT , ED attending interpretation of 2-view chest x-ray shows normal heart size, no acute infiltrate. <Dr. Donovan Jackson MD - Last Filed: 06/26/23 18:20> MDM Radiography Diagnostic Testing: Clinical Impression(s) from Imaging Studies Chest X-Ray 06/26/23 17:05 IMPRESSION: Normal x-ray examination of the chest. Electronically Signed: Ilan Mehta MD at 17:17 EDT , Management Discussion w/another healthcare provider: Hospitalist Treatment and Re-Evaluation Comments:: I have personally performed a face to face assessment of the patient and have reviewed the ELSA Note. I performed a substantive portion of the visit including all aspects of the following. My ayala findings include: History is almost 1 week of productive cough, chest tightness, wheezing, significant bronchospasm with lying flat no edema in the legs, but exerting short distance she is much worse and has to rest. History of COPD. No home oxygen. Exam is wheezing throughout all lung lakhani with prolonged expiratory phase. Occasional bronchospasm but no respiratory distress. No leg edema or calf tenderness. Heart regular no murmurs no tachycardia. Medical Decison Making 2 view chest x-ray my interpretation normal/negative and unchanged compared with her prior. No pneumonia. After multiple nebulizer treatments she is feeling better but with ambulation she can only go a very short distance and is 85% on room air, and very dyspneic. It took her a little while to recover at rest. She is amenable to staying, treated with steroids and broad-spectrum antibiotics to prevent bacterial superinfection but this is probably viral in etiology. She had a COVID/influenza/RSV swab this past week that was negative we do not think that needs to be repeated. Other additions or changes: [None] Discharge Plan Triage Chief Complaint: Shortness of Breath ED Midlevel Provider: Mindy Nolan ED Provider: Donovan Jackson Dx/Rx/DC Orders Clinical Impression: Hypoxia, COPD exacerbation, Acute bronchitis with bronchospasm Prescriptions: No Action [employer] 1 EACH tablet 1 tab PO DAILY acetaminophen 500 mg tablet 1,000 mg PO Q8H PRN (Reason: Pain) albuterol sulfate [Ventolin HFA] 1 INHALER inhaler 2 puff inhalation Q4H PRN PRN (Reason: Wheezing) Qty: 1 0RF ibuprofen 800 mg tablet 800 mg PO TID PRN (Reason: pain) Qty: 30 0RF metoclopramide HCl [Reglan] 5 mg tablet 5 mg PO Q8H PRN PRN (Reason: nausea and vomiting) 7 Days Qty: 21 0RF benzonatate [benzonatate] 100 mg capsule 200 mg PO TID PRN PRN (Reason: Cough) Qty: 20 0RF albuterol sulfate [Ventolin HFA] 90 mcg/actuation HFA aerosol inhaler 1 - 2 puff inhalation Q4H PRN PRN (Reason: Wheezing) Qty: 1 0RF Other Ambulatory Orders: Durable Medical Equipment (Routine) Location: None Selected Ordered By: Mindy Nolan Primary Care Provider: Sobeida Berger Referrals: Sobeida Berger MD [Primary Care Provider] - Disposition Disposition: Acute Care Hospital [facility]
[2023-06-26] MEDS: Ipratropium/Albuterol Sulfate 3 ML AMPUL.NEB INHALATION ×3 (16:43→23:31)
--- NOTE | 2023-06-26 17:05 | RAD_ITS ---
STUDY: X-RAY CHEST REASON FOR EXAM: Female, 48 years old. cough TECHNIQUE: Frontal and lateral views of the chest. COMPARISON: 06/22/2023. FINDINGS: The lungs are clear and expanded. There is no demonstrated pleural abnormality. Normal size heart. Normal mediastinum and violetta. Normal visualized pulmonary arteries. Normal visualized aortic arch and descending thoracic aorta. Normal visualized thoracic spine. Normal visualized ribs, clavicles, and shoulders. There is no demonstrated abnormality of the visualized soft tissue structures of the upper abdomen. RAD/Chest PA and Lateral IMPRESSION: Normal x-ray examination of the chest. Electronically Signed: Ilan Mehta MD at 17:17 EDT ,
[2023-06-26] MEDS: predniSONE 20 MG Tablet 60 MG PO (17:20)
[2023-06-26] MEDS: Albuterol 2.5 MG/3 ML VIAL.NEB. INHALATION (17:39)
--- NOTE | 2023-06-26 18:09 | HP.PCM.HOS_ITS ---
HPI - General General Date of Admission: 06/26/23 Date of Service: 06/26/23 Chief Complaint: Shortness of breath for about 5 days. Failed outpatient treatment HPI Narrative SHAHNAZ ESPANA, is a 48 F with history of COPD came to ED with worsening of shortness of breath cough, wheezing for about 5 days started around [place]. Patient states she has COPD with history of smoking, started as a teenager and then quit about 8 months ago. She visited ED on June 22, 2023 with URI and viral symptoms and was discharged on Tessalon Perles and albuterol inhaler. COVID, RSV and flu PCR were negative. Patient is stated about 3 to 4 days ago her temperature was 101 Fahrenheit and then last night she felt hot but did not measure her temperature. Patient is stated her symptom gets worse. In ED, patient was ambulated and her pulse ox dropped to 85% on room air otherwise also normal at rest. Chest x-ray done, individually reviewed total time spent in [id number] encounter with history taking, physical exam, labs review, review of imaging and discussion of assessment and plan with the patient: 50 minutes does not show acute infiltrate [facility] Medical History Alcohol use Anxiety Asthma Bipolar disorder Carpal tunnel syndrome Chronic cough Chronic pain COPD (chronic obstructive pulmonary disease) Easy bruising Hepatitis Hepatitis C Herniated cervical disc History of herniated intervertebral disc History of IBS History of stress test Hx of degenerative disc disease Injury of back Leg cramps Lumbar radicular pain MARIA INES (obstructive sleep apnea) Peptic ulcer Polysubstance abuse Schizoaffective disorder, bipolar type Schizophrenia Shortness of breath on exertion Smoker Tobacco use (Unknown) Ulnar nerve laceration Wears glasses Home Medications acetaminophen 500 mg tablet 1,000 mg PO Q8H PRN Pain 07/05/21 [History Last Taken 06/26/23] albuterol sulfate 90 mcg/actuation aerosol inhaler (Ventolin HFA) 2 puff inhalation Q4H PRN PRN Wheezing ##1 07/05/21 [Rx Last Taken 06/26/23] ibuprofen 800 mg tablet 800 mg PO TID PRN pain #30 tabs 09/10/21 [Rx Last Taken 06/26/23] EQUATE PM 1 tab PO QHS SLEEP 06/26/23 [History Last Taken 06/25/23] benzonatate 100 mg capsule 200 mg PO TID PRN Cough 06/26/23 [History Last Taken 06/26/23] metoclopramide HCl 5 mg tablet (Reglan) 5 mg PO Q8H PRN nausea and vomiting 06/26/23 [History Last Taken 06/26/23] zknwxzcw-oord-bgc-iron 18 mg-folic 240 mcg-vit K 120 mcg-herbal tablet ([employer]) 1 tab PO DAILY SUPPLEMENT 06/26/23 [History Last Taken 06/26/23] Allergy/AdvReac Type Severity Reaction Status Date / Time hydrocodone Allergy Intermediate Hives Verified 06/26/23 16:06 Surgical History History of appendectomy History of back surgery History of back surgery History of cholecystectomy History of decompression of ulnar nerve History of lumbar laminectomy History of tubal ligation Social History household members: none housing: house Smoking Status: Current every day smoker tobacco type: cigarettes and e- cigarettes substance use type: does not use ROS ROS Narrative Constitutional: Reports fatigue and weakness. Feels hot/low-grade fever HEENT: Reports systems reviewed and no addt'l complaints, except as documented Respiratory/Chest: As described in HPI CVS: Mild chest tightness especially on prolonged coughing. Denies history of coronary artery disease. Gastrointestinal: Dry heaving with mild gagging with small saliva and fluid but no large-volume vomiting. Denies coffee ground emesis, hematemesis or melena Genitourinary: Denies burning urination or new urinary tract symptoms Musculoskeletal: Denies acute joint pain or limited range of motion. No acute injury Neurologic: Denies seizure-like symptoms. skin: No ulcer. No rash Endocrinology: Reports systems reviewed and no addt'l complaints, except as documented Hematologic/Lymphatic: Reports systems reviewed and no addt'l complaints, except as documented Rest 14 ROS are negative except as mentioned in HPI Vital Signs Vital Signs Vital Signs: 06/26/23 16:06 06/26/23 16:06 06/26/23 16:11 Temperature 99 F 99 F Temperature Source Temporal Oral Pulse Rate 103 H 102 H 102 H Respiratory Rate 18 14 14 Respiratory Effort Respiratory Depth Respiratory Pattern Blood Pressure 141/99 H 143/106 H 143/106 H Blood Pressure Mean 113 118 118 Pulse Ox 90 91 99 Oxygen Delivery Method Room Air Room Air Room Air 06/26/23 16:34 06/26/23 16:46 06/26/23 17:11 Temperature 98.5 F Temperature Source Temporal Pulse Rate 95 88 Respiratory Rate 24 H 18 Respiratory Effort Normal Respiratory Depth Normal Respiratory Pattern Normal Blood Pressure 144/83 H Blood Pressure Mean 103 Pulse Ox 94 Oxygen Delivery Method 06/26/23 17:40 06/26/23 17:40 06/26/23 18:00 Temperature 98.5 F Temperature Source Temporal Pulse Rate 95 88 Respiratory Rate 18 26 H Respiratory Effort Respiratory Depth Respiratory Pattern Blood Pressure 145/82 H Blood Pressure Mean 103 Pulse Ox 98 96 Oxygen Delivery Method Room Air Room Air 06/26/23 18:06 Temperature Temperature Source Pulse Rate 88 Respiratory Rate 26 H Respiratory Effort Respiratory Depth Respiratory Pattern Blood Pressure 145/82 H Blood Pressure Mean 103 Pulse Ox 96 Oxygen Delivery Method Room Air Weight Weight: 221 lb 1.978 oz Body Mass Index (BMI) 39.2 Physical Exam Narrative General: Alert, Oriented x3, Cooperative HEENT: Atraumatic, PERRLA, EOMI, Normocephalic Oral: Oral mucosa dry no Gingival or Mucosal Lesions/ Ulcerations Neck: Supple, No JVD, Negative Carotid Bruits Chest wall/Lungs: Air entry diminished in all lung lakhani. Bilateral gross expiratory wheezing Cardiovascular: Regular rate, Regular Rhythm, Normal S1, Normal S2, No M/G/R Abdomen: Bowel Sounds Present, Soft, Non Tender, Non-Distended : No dysuria. No renal angle tenderness. No suprapubic tenderness. Extremities: No edema, Capillary Refill Less than 3 Seconds Skin: No rashes, No breakdown Musculoskeletal: No Tenderness to Palpation of Joints or Extremities Neurological: Cranial nerves II-XII grossly intact, DTR 2+/4. No acute focal neurological deficit. Psych/Mental Status: Anxiety disease. Intermittent panic attack. Results Imaging Radiology Impression Chest X-Ray 06/26/23 17:05 IMPRESSION: Normal x-ray examination of the chest. Electronically Signed: Ilan Mehta MD at 17:17 EDT , Assessment & Plan Assessment/Plan (1) COPD exacerbation: PLAN: Plan This is a 48-year-old female is being admitted for COPD exacerbation after failed outpatient treatment. 1. COPD exacerbation with mild hypoxia on walking/exertion: Patient is being admitted to [facility] floor. Patient is being managed on scheduled bronchodilator, IV Solu-Medrol, Mucinex, incentive spirometry and Pep. Started on oral Zithromax patient had labs in April before which shows no reticulocytosis was advised normocytic. Labs ordered in the ED are pending. Chest x-ray initially read and did not show acute infiltrate and reported normal. 2. History of schizophrenia, anxiety and depression and intermittent panic attack: Patient has tenderness he was taking Xanax in the past but stopped taking as it has dependence potential. Will start her on buspirone. 3. History herniated nucleus pulposus L3-4 right sided L3 radiculopathy status post lumbar laminectomy: Patient had lateral laminectomy/discectomy L3-4 right in November [address] Avery currently denies any acute back pain. 4. History of chronic hepatitis C treated with Harvoni in the past 5. Ex-smoker: Patient states she quit smoking about 8 months VTE prophylaxis, moderate risk: Heparin 5000 units heparin SQ 8 hourly Living will/advanced directive/end of life care: Patient does not have living will or advanced directive. After discussion of benefits/risks procedures involved with full code, DNR CC arrest and DNR CC, the patient opted for full code. Patient does want artificial life support including intubation, tube feed, ventilator and/chest compression, central venous catheter, vasopressor and DC shock if needed Total time spent in [id number] encounter in discussion of advanced directive 17 minutes. Clinical Impression(s) from Imaging Studies Chest X-Ray 06/26/23 17:05 IMPRESSION: Normal x-ray examination of the chest. Electronically Signed: Ilan Mehta MD at 17:17 EDT , Charges/Coding Visit Charges Inpatient E&M: 56258 Init Hosp L3
[2023-06-26 18:54] LABS: Absolute Lymphocyte Count 1.11 X10^3/uL (0.83-4.51); Absolute Neutrophil Count 4.4 X10^3/uL (2.0-7.7); Basophil# 0.02 X10^3/uL; Basophil% 0.3 % (0-1); Hematocrit 43.5 % (37-47); Lymphocyte # 1.11 X10^3/ul (0.83-4.51); Lymphocyte % 19.3 % (19-41); Mean Corp Hgb Conc 32.2 g/dL (32-36); Mean Corpuscular Hgb 28.3 pg (27.0-32.0); Mean Corpuscular Volume 87.9 fL (81-99); Mean Platelet Vol. 9.6 fl (6.2-12.0); Monocyte# 0.22 X10^3/uL; Monocyte% 3.8 % (0-10); NRBC Flagged by Analyzer 0 % (0-5); Neutrophil # 4.39 X10^3/uL (2.7-7.7); Neutrophil % 76.3 % (47-70); Platelet Count 303 K/mm3 (150-450); RBC Distribution Width CV 13.2 % (11.6-14.6); RBC Distribution Width SD 42.8 fl (35.1-43.9); Red Blood Count 4.95 M/mm3 (4.2-5.4); White Blood Count 5.8 K/mm3 (4.4-11.0)
[2023-06-26 19:01] LABS: ALB/GLOB Ratio 0.9 RATIO (0.9-2.4); AST(SGOT) 48 U/L (15-37); Alanine Aminotransfer ALT/SGPT 80 U/L (13-56); Alkaline Phosphatase 91 U/L (45-117); Anion Gap 7 (5-15); BUN 10 mg/dL (7-18); BUN/Creat Ratio 15.8 RATIO (10-20); Calcium,Total 9.6 mg/dL (8.5-10.1); Chloride 106 mmol/L (98-107); Creatinine, Serum 0.63 mg/dL (0.55-1.02); EST Glomerular Filtration Rate 107 mL/min (>60); Est Glom Filt Rate - Afr Amer 129 mL/min (>60); Estimated Creatinine Clearance 122.03 ml/min; Globulin 4.4 g/dL (2.2-4.2); Glucose 155 mg/dL (74-106); Magnesium 1.9 mg/dL (1.6-2.6); Potassium 3.7 mmol/L (3.5-5.1); Protein, Total 8.4 g/dL (6.4-8.2); Sodium Level 135 mmol/L (136-145)
[2023-06-26] MEDS: 0.9% Saline Lock 10 ML Syringe IV (20:16)
[2023-06-26] MEDS: Benzonatate 100 MG Capsule 200 MG PO (20:16)
[2023-06-26] MEDS: 0.9% Normal Saline (1000mL) 1,000 ML 75 ML IV (20:16)
[2023-06-26] MEDS: guaiFENesin 1,200 MG Tablet 1200 MG PO (20:16)
[2023-06-26] MEDS: busPIRone 15 MG TABLET 10 MG PO (20:17)
[2023-06-26] MEDS: Heparin Injection (Vial) 5,000 UNIT/ML VIAL 5000 UNIT SC (20:17)
[2023-06-26] MEDS: Azithromycin 250 MG Tablet 500 MG PO (20:18)
[2023-06-26] MEDS: Acetaminophen 500 MG Tablet 1000 MG PO (20:26)
[2023-06-27 02:00] VITALS: BP 99/69; PULSE 75; RESP 16; TEMP 36.6; O2SAT 96
[2023-06-27] MEDS: Ipratropium/Albuterol Sulfate 3 ML AMPUL.NEB INHALATION ×2 (03:42→07:46)
[2023-06-27 03:43] VITALS: PULSE 73; RESP 16
[2023-06-27] MEDS: busPIRone 15 MG TABLET 10 MG PO (05:02)
[2023-06-27] MEDS: Benzonatate 100 MG Capsule 200 MG PO (05:03)
[2023-06-27] MEDS: Acetaminophen 500 MG Tablet 1000 MG PO (05:03)
[2023-06-27] MEDS: Heparin Injection (Vial) 5,000 UNIT/ML VIAL 5000 UNIT SC (05:03)
[2023-06-27 07:46] VITALS: PULSE 76; RESP 20; O2SAT 96
--- NOTE | 2023-06-27 07:52 | DS.PCM_ITS ---
Providers Date of Admission: 06/26/23 Date of Discharge: 06/27/23 Primary Care Physician: Dr. Sobeida Berger MD Reason For Visit: COPD EXA Diagnosis Discharge Diagnosis (1) COPD exacerbation: Status: Chronic Code(s): J44.1 - Chronic obstructive pulmonary disease with (acute) exacerbation Medications at Discharge Home Medications acetaminophen 500 mg tablet 1,000 mg PO Q8H PRN Pain 07/05/21 albuterol sulfate 90 mcg/actuation aerosol inhaler (Ventolin HFA) 2 puff inhalation Q4H PRN PRN Wheezing ##1 07/05/21 ibuprofen 800 mg tablet 800 mg PO TID PRN pain #30 tabs 09/10/21 EQUATE PM 1 tab PO QHS SLEEP 06/26/23 benzonatate 100 mg capsule 200 mg PO TID PRN Cough 06/26/23 metoclopramide HCl 5 mg tablet (Reglan) 5 mg PO Q8H PRN nausea and vomiting 06/26/23 jgllsxce-sbqp-nek-iron 18 mg-folic 240 mcg-vit K 120 mcg-herbal tablet (Al[employer]) 1 tab PO DAILY SUPPLEMENT 06/26/23 azithromycin 250 mg tablet 500 mg (2 x 250 mg) PO Q24 #10 tabs 06/27/23 budesonide-formoterol HFA 160 mcg-4.5 mcg/actuation aerosol inhaler (Breyna) 1 inh inhalation BID #10.2 grams 06/27/23 guaifenesin 1,200 mg tablet, extended release 12 hr (Mucus Relief ER) 1,200 mg PO BID #20 tabs 06/27/23 ipratropium 0.5 mg-albuterol 3 mg (2.5 mg base)/3 mL nebulization soln 3 ml inhalation Q4H.RT #180 mL 06/27/23 nebulizer and compressor #1 ea 06/27/23 pantoprazole 40 mg tablet,delayed release (Protonix) 40 mg PO DAILY #30 tabs 06/27/23 prednisone 20 mg tablet 20 mg PO BID #14 tabs 06/27/23 Hospital Course Summary of Care Provided Minutes Spent on Discharge: 32 Hospital Course: Patient is a 48-year-old lady who presented with progressive shortness of breath 1. COPD with acute exacerbation ? Patient admitted to regular nursing floor managed with bronchodilator treatment systemic steroid, antibiotic therapy with azithromycin as well as supplemental oxygen patient did respond to treatment to discharge the day following her admission 2. Tobacco dependence - Counseled on cessation, offered nicotine patch for tobacco cravings 3. Class II obesity with BMI of 30.3 ? Weight loss advised 4. Schizoaffective disorder ? Patient to follow-up with primary care physician for subsequent care 5. Chronic hep C ? Previously treated with Harvoni 6. DVT prophylaxis ? SC heparin Physical Exam Narrative GENERAL: cooperative HEENT: Atraumatic; normocephalic EYES; Anicteric, Normal Conjunctiva NECK; supple, normal thyroid, RESPIRATORY: Diminished to auscultation CARDIOVASCULAR: Regular S1 S2, GI: soft, normoactive bowel sounds, : No Renal angle tenderness; EXTREMITIES: No edema, no clubbing, MUSCULOSKELETAL: no muscle wasting NEURO: Awake; no lateralizing signs. SKIN: No Rash PSYCH; Flat affect Weight / BMI Weight Weight: 97.7 kg Body Mass Index (BMI) 38.1 ABG / Lab / Microbiology Data 06/26/23 18:30 06/26/23 18:30 Laboratory: Laboratory Results - last 24 hr 06/26/23 18:30: WBC 5.8, RBC 4.95, Hgb 14.0, Hct 43.5, MCV 87.9, MCH 28.3, MCHC 32.2, RDW Std Deviation 42.8, RDW Coeff of Bianca 13.2, Plt Count 303, MPV 9.6, Immature Gran % (Auto) 0.300, Neut % (Auto) 76.3 H, Lymph % (Auto) 19.3, [place] % (Auto) 3.8, Eos % (Auto) 0.0, Baso % (Auto) 0.3, Absolute Neuts (auto) 4.4, Abso lute Lymphs (auto) 1.11, Nucleated RBC % 0, Sodium 135 L, Potassium 3.7, Chlo ride 106, Carbon Dioxide 22.0, Anion Gap 7, BUN 10, Creatinine 0.63, Estim Creat Clear Calc 122.03, Est GFR (MDRD) Af Amer 129, Est GFR (MDRD) Non-Af 107, BUN/Creatinine Ratio 15.8, Glucose 155 H, Calcium 9.6, Magnesium 1.9, Total Bilirubin 0.30, AST 48 H, ALT 80 H, Alkaline Phosphatase 91, Total Protein 8.4 H , Albumin 4.0, Globulin 4.4 H, Albumin/Globulin Ratio 0.9 Microbiology: Microbiology 06/26/23 18:28 Mucosa - Nose SARS-CoV-2, Influenza & RSV (PCR) - Final Radiography Diagnostic Testing: Radiology Impression Chest X-Ray 06/26/23 17:05 IMPRESSION: Normal x-ray examination of the chest. Electronically Signed: Ilan eMhta MD at 17:17 EDT , D/C Instructions Discharge Diet: No restrictions Discharge Activity: Return to Normal Activity Call your doctor if you observe: Fever of 101 or Higher, Shortness of breath, Fainting spells and Chest pain Meaningful Use Info Meaningful Use Diagnoses (Choose all that apply): None applicable Discharge Plan Admission Admit Date/Time: 06/26/23 18:11 Attending Provider: Thomas Jordan Primary Care Provider: Sobeida Berger Consulting Providers: Micheal Shen Discharge Orders/Prescriptions Prescriptions: New azithromycin 250 mg Tablet 500 mg PO Q24 Qty: 10 0RF guaifenesin [Mucus Relief ER] 1,200 mg Tablet Extended Release 12hr 1,200 mg PO BID Qty: 20 0RF prednisone 20 mg tablet 20 mg PO BID Qty: 14 0RF budesonide-formoterol [Breyna] 160-4.5 mcg/actuation HFA aerosol inhaler 1 inh inhalation BID Qty: 10.2 0RF pantoprazole [Protonix] 40 mg tablet,delayed release (DR/EC) 40 mg PO DAILY Qty: 30 0RF (DME) nebulizer and compressor Device See Rx Instructions .Route Qty: 1 0RF Rx Instructions: As directed ipratropium-albuterol 0.5 mg-3 mg(2.5 mg base)/3 mL Solution For Nebulization 3 ml inhalation Q4H.RT Qty: 180 0RF Continued acetaminophen 500 mg tablet 1,000 mg PO Q8H PRN (Reason: Pain) albuterol sulfate [Ventolin HFA] 1 INHALER inhaler 2 puff inhalation Q4H PRN PRN (Reason: Wheezing) Qty: 1 0RF ibuprofen 800 mg tablet 800 mg PO TID PRN (Reason: pain) Qty: 30 0RF [employer] 18 mg iron- 240 mcg-120 mcg tablet 1 tab PO DAILY EQUATE PM tablet 1 tab PO QHS Patient Comments: PT STATES SHE TAKES A NIGHT MED FOR SLEEP. I ASKED ABOUT TYLENOL PM, OR ADVIL PM, PT STATES ITS EQUATE BRAND, BUT DOESNT KNOW WHAT IS IN IT. STATES IT IS NOT MELATONIN. metoclopramide HCl [Reglan] 5 mg tablet 5 mg PO Q8H PRN (Reason: nausea and vomiting) benzonatate 100 mg capsule 200 mg PO TID PRN (Reason: Cough) Referrals / Follow Up: Sobeida Berger MD [Primary Care Provider] - In 1 Week Disposition Disposition (needs filled in before D/C Order can be placed): Home, Self Care Charges/Coding Visit Charges Inpatient E&M: 27700 Disch Hosp >30min
[2023-06-27] MEDS: guaiFENesin 1,200 MG Tablet 1200 MG PO (08:39)
[2023-06-27 08:45] VITALS: BP 128/73; PULSE 75; RESP 18; TEMP 36.3; O2SAT 97
[2023-06-27] MEDS: Metoclopramide 5 MG TABLET PO (08:45)
[2023-06-27 09:07] VITALS: O2SAT 97; O2SAT 98
--- NOTE | 2023-06-27 09:37 | CASEMGMT ---
Pt DC order placed. Dr. Jordan states the pt will need a nebulizer. RN CM to pt room at this time. A verbal list of local in-network DME companies provided and the pt chose [facility] for DME needs. Dr. Jordan signs Rx for Nebulizer. Rx Faxed to [facility]. TC to [facility] at this time and [facility] states that they cannot deliver the nebulizer until Thursday. This RN CM back to pt room at this time. Pt states that she is OK with the nebulizer being delivered Thursday. Pt denies all home going needs. Pt states that she is ind at home and denies the need for HHC or OP therapy. Pt has a ride set up for DC home. Denies further questions or concerns.
== END 2023-06-27 10:33 | disposition home or self-care (01) ==
LOC: ED 18:20 → MS3 18:55
PROVIDERS: Physician Assistant; Admitting Provider Internal Medicine; Emergency Provider Emergency Medicine; PCP Internal Medicine; Visit Provider Internal Medicine
DX: J44.1 Chronic obstructive pulmonary disease with (acute) exacerbation (principal); F25.9 Schizoaffective disorder, unspecified; B18.2 Chronic viral hepatitis C; R11.10 Vomiting, unspecified; E66.9 Obesity, unspecified; Z68.30 Body mass index [BMI] 30.0-30.9, adult; Z79.899 Other long term (current) drug therapy; F17.210 Nicotine dependence, cigarettes, uncomplicated; F17.290 Nicotine dependence, other tobacco product, uncomplicated
CPT/HCPCS: 71046; 80053; 83735; 85025; 87631; 94640; 94668; 94762; 96361; 96372; 96374; 96376; 99221; 99285; J7030; A4216; G0378

== ENCOUNTER 2023-07-07 19:23 | Emergency (ER) | payer OTHER, MEDICAID, SELFPAY ==
[2023-07-07] VITALS (9 sets, daily range): BP systolic 115–156; BP diastolic 62–104; PULSE 85–122; RESP 12–24; TEMP 36–36.6; O2SAT 97–98; BMI 39.6
--- NOTE | 2023-07-07 20:26 | EKG12_ITS ---
Test Reason : DYSRHYTHMIA Blood Pressure : / mmHG Vent. Rate : 088 BPM Atrial Rate : 088 BPM P-R Int : 160 ms QRS Dur : 074 ms QT Int : 364 ms P-R-T Axes : 039 061 032 degrees QTc Int : 440 ms Normal sinus rhythm Normal ECG Confirmed by AYO ENCISO, JAKUB ([id number]), editor index LUIS WOOD ([id number]) on 07/08/2023 9:19:32 AM Referred By: Confirmed By:JAKUB ROLLINS MD
--- NOTE | 2023-07-07 20:40 | RAD_ITS ---
INDICATION: dyspnea EXAMINATION/TECHNIQUE: X-RAY - XR Chest 1 View COMPARISON: CR ChestApr 2023 4:44pm FINDINGS: LINES/DEVICES: None. LUNGS: No consolidation, edema or effusion. No pneumothorax. MEDIASTINUM AND CARDIOVASCULAR STRUCTURES: Cardiac silhouette not enlarged. Central airways and mediastinal contour are unremarkable. BONES AND SOFT TISSUES: Unremarkable. RAD/Chest 1 View (Portable) IMPRESSION: No radiographic evidence of acute cardiopulmonary disease. Electronically Signed: Becca Olivares MD at 20:50 EDT ,
[2023-07-07 20:44] LABS: Absolute Lymphocyte Count 1.71 X10^3/uL (0.83-4.51); Absolute Neutrophil Count 18.8 X10^3/uL (2.0-7.7); Basophil# 0.06 X10^3/uL; Basophil% 0.3 % (0-1); Hematocrit 43.4 % (37-47); Hemoglobin 13.9 g/dL (12.0-15.0); Lymphocyte # 1.71 X10^3/ul (0.83-4.51); Mean Corpuscular Hgb 28.8 pg (27.0-32.0); Mean Platelet Vol. 9.2 fl (6.2-12.0); Monocyte# 0.49 X10^3/uL; Monocyte% 2.3 % (0-10); NRBC Flagged by Analyzer 0 % (0-5); Neutrophil # 18.83 X10^3/uL (2.7-7.7); Neutrophil % 88.5 % (47-70); Platelet Count 361 K/mm3 (150-450); RBC Distribution Width CV 14.4 % (11.6-14.6); RBC Distribution Width SD 46.8 fl (35.1-43.9); Red Blood Count 4.82 M/mm3 (4.2-5.4); White Blood Count 21.3 K/mm3 (4.4-11.0)
--- NOTE | 2023-07-07 20:48 | CT_ITS ---
STUDY: CTA CHEST REASON FOR EXAM: Female, 48 years old. dyspnea RADIATION DOSAGE (If Supplied By Facility): CTDIvol = ( 12.32 ) mGy, DLP = ( 493.23 ) mGycm TECHNIQUE: The examination was performed with the intravenous administration of IV 100mL Isovue-370. Post-processing of the angiographic images was performed, with multiplanar reformation and 3D reconstruction. Individualized dose optimization techniques were used for this CT. COMPARISON: No relevant prior comparison study available FINDINGS: Normal enhancement of the main pulmonary artery and right and left pulmonary arteries. Normal enhancement of the bilateral peripheral pulmonary arteries. There is no demonstrated pulmonary embolism. Normal thoracic aorta and visualized great vessels. There is no demonstrated aortic dissection. Normal heart and pericardium. Normal mediastinum. Normal hilar regions. Normal visualized trachea and bronchi. The lungs are well expanded. Normal pulmonary parenchyma. Normal pleura. Normal chest wall structures. Normal osseous structures. Normal visualized upper abdomen. CT/CTA Chest W/WO Contrast IMPRESSION: Normal CTA chest examination, without a demonstrated pulmonary embolism or arterial dissection. Electronically Signed: Becca Olivares MD at 22:58 EDT ,
--- NOTE | 2023-07-07 20:56 | EDS_ITS ---
HPI History of Present Illness Chief Complaint: Shortness of Breath Narrative Narrative: 48-year-old female with history of COPD presenting with shortness of breath and wheezing. Patient recently admitted to the hospital for pneumonia. She states she was discharged home on prednisone, azithromycin. She is finishing azithromycin on Thursday. She states that she took her last prednisone today. She states she can barely breathe. She is still wheezing. She has a home nebulizer which is not helping. Patient states she had a fever on Thursday of 102.5 but has not had a return of the fever. She does admit to chills and bodyaches. She states he is unable to lay flat due to dyspnea. She continues to be short of breath. She is not a smoker anymore. She denies any triggers that would set her off as far as COPD. Patient has no history of DVT/PE. [facility] Medical History Alcohol use Anxiety Asthma Bipolar disorder Carpal tunnel syndrome Chronic cough Chronic pain COPD (chronic obstructive pulmonary disease) Easy bruising Hepatitis Hepatitis C Herniated cervical disc History of herniated intervertebral disc History of IBS History of stress test Hx of degenerative disc disease Injury of back Leg cramps Lumbar radicular pain MARIA INES (obstructive sleep apnea) Peptic ulcer Polysubstance abuse Schizoaffective disorder, bipolar type Schizophrenia Shortness of breath on exertion Smoker Tobacco use (Unknown) Ulnar nerve laceration Wears glasses Home Medications acetaminophen 500 mg tablet 1,000 mg PO Q8H PRN Pain 07/05/21 [History Last Taken 06/26/23] albuterol sulfate 90 mcg/actuation aerosol inhaler (Ventolin HFA) 2 puff inhalation Q4H PRN PRN Wheezing ##1 07/05/21 [Rx Last Taken 06/26/23] ibuprofen 800 mg tablet 800 mg PO TID PRN pain #30 tabs 09/10/21 [Rx Last Taken 06/26/23] EQUATE PM 1 tab PO QHS SLEEP 06/26/23 [History Last Taken 06/25/23] benzonatate 100 mg capsule 200 mg PO TID PRN Cough 06/26/23 [History Last Taken 06/26/23] wlyvvsuo-kaaq-ovm-iron 18 mg-folic 240 mcg-vit K 120 mcg-herbal tablet ([employer]) 1 tab PO DAILY SUPPLEMENT 06/26/23 [History Last Taken 06/26/23] budesonide-formoterol HFA 160 mcg-4.5 mcg/actuation aerosol inhaler (Breyna) 1 inh inhalation BID #10.2 grams 06/27/23 [Rx Last Taken Unknown] buspirone 7.5 mg tablet 7.5 mg PO BID #60 tabs 06/27/23 [Rx Last Taken Unknown] guaifenesin 1,200 mg tablet, extended release 12 hr (Mucus Relief ER) 1,200 mg PO BID #20 tabs 06/27/23 [Rx Last Taken Unknown] ipratropium 0.5 mg-albuterol 3 mg (2.5 mg base)/3 mL nebulization soln 3 ml inhalation Q4H.RT #180 mL 06/27/23 [Rx Last Taken Unknown] nebulizer and compressor #1 ea 06/27/23 [Rx Last Taken Unknown] nicotine 21 mg/24 hr daily transdermal patch 1 patch transdermal DAILY #28 ea 06/27/23 [Rx Last Taken Unknown] ondansetron 4 mg disintegrating tablet 4 mg PO Q6H PRN nausea and vomiting #30 tabs 06/27/23 [Rx Last Taken Unknown] pantoprazole 40 mg tablet,delayed release (Protonix) 40 mg PO DAILY #30 tabs 06/27/23 [Rx Last Taken Unknown] amoxicillin 875 mg-potassium clavulanate 125 mg tablet 1 tab PO BID 07/07/23 [History Last Taken Unknown] prednisone 10 mg tablet 10 mg PO DAILY #42 tabs 07/08/23 [Rx Last Taken Unknown] Allergy/AdvReac Type Severity Reaction Status Date / Time hydrocodone Allergy Intermediate Hives Verified 07/07/23 19:26 Surgical History History of appendectomy History of back surgery History of back surgery History of cholecystectomy History of decompression of ulnar nerve History of lumbar laminectomy History of tubal ligation Social History household members: none housing: house Smoking Status: Former smoker substance use type: does not use ROS ROS ED Constitutional Constitutional ED: Reports chills and fever(s) Eyes Eyes: Denies change in vision ENT ENT ED: Denies ear pain or rhinorrhea Cardiovascular Cardiovascular: Reports orthopnea Respiratory/Chest Respiratory/Chest: Reports cough, dyspnea, dyspnea on exertion and orthopnea Gastrointestinal Gastrointestinal: Reports nausea; Denies abdominal pain or vomiting Genitourinary Genitourinary ED: Denies dysuria or hematuria Musculoskeletal Musculoskeletal: Reports myalgias Integumentary Denies abscess Neurologic Neurologic: Reports headache(s); Denies paresthesias Psychiatric Psychiatric: Denies anxiety or depression EXAM Physical Exam Const Vital Signs: 07/07/23 19:26 07/07/23 19:36 07/07/23 19:37 Temperature 96.8 F L 98 F Temperature Source Temporal Temporal Pulse Rate 118 H 122 H Respiratory Rate 24 H 19 H Respiratory Effort Normal Non-Labored Respiratory Depth Normal Respiratory Pattern Normal Blood Pressure 139/97 H 156/82 H Blood Pressure Mean 111 106 Pulse Ox 98 98 Oxygen Delivery Method Room Air Room Air Room Air 07/07/23 21:05 07/07/23 20:28 07/07/23 21:00 Temperature 97.4 F L 97.8 F Temperature Source Temporal Temporal Pulse Rate 93 91 Respiratory Rate 17 12 Respiratory Effort Respiratory Depth Respiratory Pattern Blood Pressure 131/93 H 134/79 H Blood Pressure Mean 105 97 Pulse Ox 97 98 Oxygen Delivery Method Room Air Room Air Room Air 07/07/23 21:02 07/07/23 22:18 07/07/23 23:48 Temperature 98 F 97 F L Temperature Source Oral Pulse Rate 95 85 97 Respiratory Rate 24 H 20 H 15 Respiratory Effort Respiratory Depth Respiratory Pattern Tachypnea Blood Pressure 115/62 151/104 H Blood Pressure Mean 79 119 Pulse Ox 98 97 Oxygen Delivery Method Room Air Positive well nourished Constitutional Narrative: Tachypneic. Tripoding. Speaking in short sentences. HEENT Reports TM's clear and dry mucous membranes Tympanic Membrane ED: Yes TM's clear Mouth ED: Yes dry mucous membranes Mouth: dry mucous membranes Eyes PERRL and EOMs intact bilaterally Neck no lymphadenopathy and supple Resp Resp Narrative: Tachypneic. Auscultation: wheezes expiratory wheezes, inspiratory wheezes and throughout Cardio regular rhythm Rate: tachycardic Neuro oriented x3 and CN's II-XII intact bilaterally Sensorium / Orientation: alert Psych Negative for mental status grossly normal Skin no wounds MDM MDM MDM Narrative Medical decision making narrative: Patient presents with shortness of breath. She states that she was recently hospitalized and was on prednisone and reportedly up until today but if she ran out a couple days ago. She also finished a Z-[place] prior to what she stated. She a couple of days ago but as not had a repeat of it. Patient given breathing treatments, Toradol, morphine, Zofran. I did obtain COVID, RSV, influenza which were all negative. CBC shows leukocytosis 21.3 otherwise her BMP and renal function electrolytes all look normal. High-sensitivity troponin less than 3. Lactic acid 1.3. Urinalysis negative for infection. Chest x-ray my interpretation showed no acute process. Radiologist interprets this and agrees. Given her significant dyspnea I did obtain a CTA of the chest to rule out PE or other acute findings and this is negative for PE, dissection, infiltrate. Patient was ambulated in the ER and walking briskly only desats to 97% although she was to be admitted. I had the hospitalist come evaluate her and after discussion the patient was amenable to going home with a work note, prednisone taper. She was given Solu-Medrol 125 after this as it does not appear that she took steroids today. Return precautions are discussed. Impression: 1. Leukocytosis 2. COPD exacerbation Lab Data Attestation: I reviewed the patient's lab results. Labs: Laboratory Results - last 24 hr 07/07/23 07/07/23 07/07/23 20:33 20:57 21:00 WBC 21.3 H RBC 4.82 Hgb 13.9 Hct 43.4 MCV 90.0 MCH 28.8 MCHC 32.0 RDW Std Deviation 46.8 H RDW Coeff of Bianca 14.4 Plt Count 361 MPV 9.2 Immature Gran % (Auto) 0.900 Neut % (Auto) 88.5 H Lymph % (Auto) 8.0 L [place] % (Auto) 2.3 Eos % (Auto) 0.0 Baso % (Auto) 0.3 Absolute Neuts (auto) 18.8 H Absolute Lymphs (auto) 1.71 Nucleated RBC % 0 PT 12.7 INR 1.0 Sodium 134 L Potassium 4.9 Chloride 100 Carbon Dioxide 27.0 Anion Gap 7 BUN 20 H Creatinine 0.85 Estim Creat Clear Calc 91.06 Est GFR (MDRD) Af Amer 91 Est GFR (MDRD) Non-Af 75 BUN/Creatinine Ratio 23.5 H Glucose 126 H Lactic Acid 1.3 Calcium 9.5 Troponin I High Sens < 3 L B-Natriuretic Peptide 6.5 Urine Color Yellow Urine Clarity Clear Urine pH 6.0 Ur Specific [place] 1.020 Urine Protein Negative Urine Glucose (UA) Normal Urine Ketones Negative Urine Occult Blood Negative Urine Nitrite Negative Urine Bilirubin Negative Urine Urobilinogen Normal Ur Leukocyte Esterase 25 H Urine RBC 0 SEEN Urine WBC 0-5 SEEN Ur Squamous Epith Cells 0-5 SEEN Urine Bacteria 0 SEEN Urine Mucus 0 SEEN Radiography Diagnostic Testing: Clinical Impression(s) from Imaging Studies Chest X-Ray 07/07/23 20:40 IMPRESSION: No radiographic evidence of acute cardiopulmonary disease. Electronically Signed: Becca Olivares MD at 20:50 EDT Reading Location ID and State: [facility] / MD Tel , Service support , Chest CTA 07/07/23 20:48 IMPRESSION: Normal CTA chest examination, without a demonstrated pulmonary embolism or arterial dissection. Electronically Signed: Becca Olivares MD at 22:58 EDT , Discharge Plan Triage Chief Complaint: Shortness of Breath ED Provider: Gus Ruiz Dx/Rx/DC Orders Instructions: ED COPD Flare Prescriptions: No Action acetaminophen 500 mg tablet 1,000 mg PO Q8H PRN (Reason: Pain) albuterol sulfate [Ventolin HFA] 1 INHALER inhaler 2 puff inhalation Q4H PRN PRN (Reason: Wheezing) Qty: 1 0RF ibuprofen 800 mg tablet 800 mg PO TID PRN (Reason: pain) Qty: 30 0RF [employer] 18 mg iron- 240 mcg-120 mcg tablet 1 tab PO DAILY EQUATE PM tablet 1 tab PO QHS Patient Comments: PT STATES SHE TAKES A NIGHT MED FOR SLEEP. I ASKED ABOUT TYLENOL PM, OR ADVIL PM, PT STATES ITS EQUATE BRAND, BUT DOESNT KNOW WHAT IS IN IT. STATES IT IS NOT MELATONIN. benzonatate 100 mg capsule 200 mg PO TID PRN (Reason: Cough) guaifenesin [Mucus Relief ER] 1,200 mg Tablet Extended Release 12hr 1,200 mg PO BID Qty: 20 0RF budesonide-formoterol [Breyna] 160-4.5 mcg/actuation HFA aerosol inhaler 1 inh inhalation BID Qty: 10.2 0RF pantoprazole [Protonix] 40 mg tablet,delayed release (DR/EC) 40 mg PO DAILY Qty: 30 0RF (DME) nebulizer and compressor Device See Rx Instructions .Route Qty: 1 0RF Rx Instructions: As directed ipratropium-albuterol 0.5 mg-3 mg(2.5 mg base)/3 mL Solution For Nebulization 3 ml inhalation Q4H.RT Qty: 180 0RF ondansetron 4 mg tablet,disintegrating 4 mg PO Q6H PRN (Reason: nausea and vomiting) Qty: 30 0RF nicotine 21 mg/24 hr patch 24 hour 1 patch transdermal DAILY Qty: 28 0RF buspirone 7.5 mg tablet 7.5 mg PO BID Qty: 60 0RF amoxicillin-pot clavulanate 875-125 mg tablet 1 tab PO BID Stand Alone Forms: ED Work / School Excuse Primary Care Provider: Sobeida Berger Referrals: Sobeida Berger MD [Primary Care Provider] - Disposition Disposition: Home, Self Care
[2023-07-07 21:00] LABS: BNP,B-Type NATRIURETIC PEPTIDE 6.5 pg/mL (0-100)
[2023-07-07] MEDS: 0.9% Normal Saline (1000mL) 1,000 ML 999 ML IV (21:02)
[2023-07-07] MEDS: Albuterol 2.5 MG/3 ML VIAL.NEB. INHALATION (21:02)
[2023-07-07] MEDS: Ondansetron 4 MG/2 ML Vial IV (21:03)
[2023-07-07] MEDS: Morphine 4 MG/ML Syringe IV (21:03)
[2023-07-07] MEDS: Ipratropium/Albuterol Sulfate 3 ML AMPUL.NEB INHALATION (21:04)
[2023-07-07 21:05] LABS: Anion Gap 7 (5-15); BUN 20 mg/dL (7-18); BUN/Creat Ratio 23.5 RATIO (10-20); Calcium,Total 9.5 mg/dL (8.5-10.1); Chloride 100 mmol/L (98-107); Creatinine, Serum 0.85 mg/dL (0.55-1.02); EST Glomerular Filtration Rate 75 mL/min (>60); Est Glom Filt Rate - Afr Amer 91 mL/min (>60); Estimated Creatinine Clearance 91.06 ml/min; Glucose 126 mg/dL (74-106); Potassium 4.9 mmol/L (3.5-5.1); Sodium Level 134 mmol/L (136-145); Troponin-I HS < 3 pg/mL (3.0-54.0)
[2023-07-07 21:06] LABS: Bacteria 0 SEEN /hpf (None Seen); Mucous, Urine 0 SEEN /hpf (<or=2+); Red Blood Cells-Urine 0 SEEN /hpf (0-5)
[2023-07-07 21:07] LABS: Prothrombin Time (Protime)PT. 12.7 SECONDS (11.7-14.9)
[2023-07-07 21:08] LABS: Color, Urine Yellow (Yellow); Glucose, Dipstick Normal (Normal); Ketone-Dipstick Negative (Negative); Leukocyte Esterase-Dipstick 25 /ul (Negative); Nitrite-Dipstick Negative (Negative); Occult Blood-Urine Negative /ul (Negative); Protein-Dipstick Negative (Negative); Urine Bilirubin Dipstick Negative (Negative); Urine Clarity Clear (Clear); Urine Urobilinogen Normal (Normal)
[2023-07-07 21:21] LABS: Squamous Epithelial Cells - UA 0-5 SEEN /hpf (5-10); White Blood Cells 0-5 SEEN /hpf (0-5)
[2023-07-07 21:31] LABS: Lactic Acid 1.3 mmol/L (0.4-1.9)
--- NOTE | 2023-07-07 22:12 | CPS ---
x1 Albuterol given to pt. in ER as well
--- NOTE | 2023-07-08 00:09 | PN.HOSP_ITS ---
Subjective Subjective 48-year-old female with a history of COPD presented to the hospital with increasing shortness of breath. She was not hypoxic either on room air at rest or on room air with ambulation however she had significant anxiety about that issue. She was recently admitted from 06/26/2023 to 06/27/2023 with bronchitis and COPD exacerbation. She was discharged on 7 days of prednisone as well as azithromycin for [address] of the chest that was negative for PE or consolidation and viral studies were negative for RSV, COVID, flu. She does use both an albuterol inhaler as well as a nebulizer and she was also discharged on budesonide and formoterol inhaler on her previous admission. Objective Data Objective Data Vital Signs: Vital Signs Temp Pulse Resp BP Pulse Ox O2 Del Method 97 F L 97 15 151/104 H 97 Room Air 07/07/23 23:48 07/07/23 23:48 07/07/23 23:48 07/07/23 23:48 07/07/23 23:48 07/07/23 22:18 Oxygen Delivery Method Room Air Weight: 223 lb 12.8 oz Body Mass Index (BMI) 39.6 Intake & Output: Intake and Output for Last 24 Hours 07/06/23 07/07/23 07/08/23 03:59 03:59 03:59 Intake Total 1000 / 1000 Balance 1000 / 1000 Lab / Micro Data 07/07/23 20:33 07/07/23 20:33 Labs: Laboratory Results - last 24 hr 07/07/23 20:33: WBC 21.3 H, RBC 4.82, Hgb 13.9, Hct 43.4, MCV 90.0, MCH 28.8, MCHC 32.0, RDW Std Deviation 46.8 H, RDW Coeff of Bianca 14.4, Plt Count 361, MPV 9.2, Immature Gran % (Auto) 0.900, Neut % (Auto) 88.5 H, Lymph % (Auto) 8.0 L, [place] % (Auto) 2.3, Eos % (Auto) 0.0, Baso % (Auto) 0.3, Absolute Neuts (auto) 18.8 H, Absolute Lymphs (auto) 1.71, Nucleated RBC % 0, PT 12.7, INR 1.0, Sodium 134 L, Potassium 4.9, Chloride 100, Carbon Dioxide 27.0, Anion Gap 7, BUN 20 H, Creatinine 0.85, Estim Creat Clear Calc 91.06, Est GFR (MDRD) Af Amer 91, Est GFR (MDRD) Non-Af 75, BUN/Creatinine Ratio 23.5 H, Glucose 126 H, Calcium 9.5, Troponin I High Sens < 3 L, B-Natriuretic Peptide 6.5 07/07/23 20:57: Urine Color Yellow, Urine Clarity Clear, Urine pH 6.0, Ur Specific Fults 1.020, Urine Protein Negative, Urine Glucose (UA) Normal, Urine Ketones Negative, Urine Occult Blood Negative, Urine Nitrite Negative, Urine Bilirubin Negative, Urine Urobilinogen Normal, Ur Leukocyte Esterase 25 H, Urine RBC 0 SEEN, Urine WBC 0-5 SEEN, Ur Squamous Epith Cells 0-5 SEEN, Urine Bacteria 0 SEEN, Urine Mucus 0 SEEN 07/07/23 21:00: Lactic Acid 1.3 Micro: Microbiology 07/07/23 21:00 Mucosa - Nose SARS-CoV-2, Influenza & RSV (PCR) - Final Radiography Diagnostic Testing: Radiology Impression Chest X-Ray 07/07/23 20:40 IMPRESSION: No radiographic evidence of acute cardiopulmonary disease. Electronically Signed: Becca Olivares MD at 20:50 EDT , Chest CTA 07/07/23 20:48 IMPRESSION: Normal CTA chest examination, without a demonstrated pulmonary embolism or arterial dissection. Electronically Signed: Becca Olivares MD at 22:58 EDT , Physical Exam Narrative General: Alert, Oriented x3, Cooperative, No apparent distress HEENT: Atraumatic, PERRLA, EOMI, Normocephalic Oral: Moist Mucosa Neck: Supple, No JVD Lungs: Diminished, Normal air movement, No rhonchi, significant wheeze, No rales Cardiovascular: Regular rate, Regular Rhythm, Normal S1, Normal S2, No murmurs, chest pain to palpation consistent with costochondritis Abdomen: Soft, Non Tender, Non-Distended, No Hepato-splenomegaly Extremities: No edema, Capillary Refill Less than 3 Seconds Skin: No rashes, No breakdown Musculoskeletal: No Tenderness to Palpation of Joints or Extremities Neurological: No focal neurological deficits, Motor Exam 5/5 strength throughout, Sensory exam intact to light touch and pain Psych/Mental Status: Normal Affect, Appropriate Assessment & Plan Assessment/Plan (1) COPD exacerbation: PLAN: Plan 1. COPD exacerbation ? No signs of hypoxia and she did have an extensive ambulatory pulse ox where she only dropped to 97% on room air ? It is possible that her prednisone was too short of the duration given the severity of her COPD. Will continue to encourage her albuterol and nebulizer use, however we will place her on a 20-day prednisone taper ? 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
[2023-07-08] MEDS: MethylPREDNISolone 125 MG/2 ML Vial IV (00:18)
== END 2023-07-08 00:32 | disposition home or self-care (01) ==
PROVIDERS: Emergency Provider Student in an Organized Health Care Education/Training Program; PCP Internal Medicine; Visit Provider Student in an Organized Health Care Education/Training Program
DX: D72.829 Elevated white blood cell count, unspecified (principal); F20.9 Schizophrenia, unspecified; J44.1 Chronic obstructive pulmonary disease with (acute) exacerbation; F41.9 Anxiety disorder, unspecified; G47.33 Obstructive sleep apnea (adult) (pediatric); Z87.891 Personal history of nicotine dependence; Z79.51 Long term (current) use of inhaled steroids; Z79.899 Other long term (current) drug therapy
CPT/HCPCS: 71045; 71275; 80048; 81001; 83605; 83880; 84484; 85025; 85610; 87040; 87086; 87631; 93005; 94640; 96361; 96374; 96375; 99285; J7030; Q9967; A4216; J2405

== ENCOUNTER 2023-09-17 12:29 | Emergency (ER) | payer MEDICAID, SELFPAY ==
[2023-09-17 12:30] VITALS: BP 146/97; PULSE 91; RESP 14; TEMP 36.6; O2SAT 97; BMI 39.9
--- NOTE | 2023-09-17 12:53 | ED.VIS.BACK ---
HPI History of Present Illness Chief Complaint: Back Informant: patient Narrative Narrative: 48-year-old female with a history of back surgery laminectomy, has been having gradually worsening pain in her low back middle all the way across worse on the right and down her right lower extremity over the past month now to the point where she is having difficulty sleeping and functioning because of the pain despite taking Tylenol and ibuprofen. She has now developed urinary frequency in the last several days and concerned it is related she denies dysuria. She denies weakness but she has numbness all the way down the right lower extremity to the foot, and feels burning and numb when she walks. She denies saddle anesthesia. [facility] Medical History Schizoaffective disorder, bipolar type History of herniated intervertebral disc Wears glasses Schizophrenia Bipolar disorder Alcohol use Easy bruising Hepatitis Injury of back Peptic ulcer History of IBS Smoker MARIA INES (obstructive sleep apnea) Shortness of breath on exertion Chronic cough Leg cramps History of stress test Hx of degenerative disc disease Herniated cervical disc Lumbar radicular pain COPD (chronic obstructive pulmonary disease) Chronic pain Ulnar nerve laceration Carpal tunnel syndrome COPD exacerbation Polysubstance abuse Tobacco use (Unknown) Asthma Anxiety Hepatitis C Home Medications ?Medication ?Instructions ?Recorded ?Last Taken ?Type acetaminophen 500 mg tablet 1,000 mg PO Q8H PRN Pain 07/05/21 06/26/23 History albuterol sulfate 90 mcg/actuation 2 puff inhalation Q4H PRN PRN 07/05/21 06/26/23 Rx aerosol inhaler (Ventolin HFA) Wheezing ##1 ibuprofen 800 mg tablet 800 mg PO TID PRN pain #30 tabs 09/10/21 06/26/23 Rx ccjzvlzs-weea-cvk-iron 18 mg-folic 1 tab PO DAILY SUPPLEMENT 06/26/23 06/26/23 History 240 mcg-vit K 120 mcg-herbal tablet ([employer]) budesonide-formoterol HFA 160 1 inh inhalation BID #10.2 grams 06/27/23 Unknown Rx mcg-4.5 mcg/actuation aerosol inhaler (Breyna) ipratropium 0.5 mg-albuterol 3 mg 3 ml inhalation Q4H.RT #180 mL 06/27/23 Unknown Rx (2.5 mg base)/3 mL nebulization soln nebulizer and compressor #1 ea 06/27/23 Unknown Rx ondansetron 4 mg disintegrating 4 mg PO Q6H PRN nausea and 06/27/23 Unknown Rx tablet vomiting #30 tabs pantoprazole 40 mg tablet,delayed 40 mg PO DAILY #30 tabs 06/27/23 Unknown Rx release (Protonix) cariprazine 3 mg capsule 3 mg PO DAILY #30 caps 09/09/23 Unknown Rx clonazepam 1 mg tablet 1 mg PO DAILY PRN anxiety 10 days 09/09/23 Unknown Rx #10 tabs oxycodone-acetaminophen 5 mg-325 1 tab PO Q6H PRN PRN Pain 3 days 09/17/23 Unknown Rx mg tablet #12 TABLETS Allergy/AdvReac Type Severity Reaction Status Date / Time hydrocodone Allergy Intermediate Hives Verified 09/17/23 12:30 Surgical History History of back surgery History of lumbar laminectomy History of back surgery History of decompression of ulnar nerve History of cholecystectomy History of appendectomy History of tubal ligation Social History household members: none housing: house Smoking Status: Current every day smoker tobacco type: cigarettes and e-cigarettes substance use type: does not use ROS ROS ED Constitutional Constitutional ED: Denies chills or fever(s) Gastrointestinal Gastrointestinal: Reports nausea; Denies abdominal pain, constipation, fecal incontinence or vomiting Genitourinary Genitourinary ED: Reports urinary frequency and other Details: no urinary retention ; Denies abdominal discomfort, dysuria, hematuria or urinary incontinence Musculoskeletal Musculoskeletal: Reports as per HPI and back pain; Denies neck pain Integumentary Denies rash or wounds Neurologic Neurologic: Reports paresthesias RLE (To the foot including plantar aspect); Denies headache(s) or weakness EXAM Physical Exam Const Vital Signs: 09/17/23 12:30 Temperature 98 F Temperature Source Temporal Pulse Rate 91 Respiratory Rate 14 Blood Pressure 146/97 H Blood Pressure Mean 113 Pulse Ox 97 Oxygen Delivery Method Room Air Positive well nourished, well developed and obese General Appearance ED: well developed and NAD Nutritional Appearance: obese HEENT Negative for trauma or tenderness Eyes PERRL and EOMs intact bilaterally Neck full ROM and supple GI normal to inspection, nondistended, normoactive bowel sounds, soft to palpation and non-tender Narrative: Rectal: Decreased sensation according to patient. Tone is good. Nontender. Back/Spine normal to inspection Back/Spine Narrative: Negative left lower extremity straight leg raise, which does not create radicular symptoms contralaterally Lumbar Spine / Lower Back: ROM limited, lumbar spinal tenderness L4 and L5, paraspinal muscle tenderness right and straight leg raise positive right at 40 degrees Extremity normal to inspection, full ROM and no pedal edema Neuro oriented x3 and no sensory deficits noted Neuro Narrative: Antalgic gait but able to walk Sensorium / Orientation: alert Motor Exam: strength 5/5 throughout and clonus absent Deep Tendon Reflexes: Rt Patellar (L4): 2+, Lt Patellar (L4): 2+, Rt Ankle (S1): 2+ and Lt Ankle (S1): 2+ Deep Tendon Reflexes Back: Rt Patellar (L4): 2+, Lt Patellar (L4): 2+, Rt Ankle (S1): 2+ and Lt Ankle (S1): 2+ Plantar Reflex: Downgoing: bilateral Psych mental status grossly normal and thought process normal Skin no rashes or lesions noted and no wounds MDM MDM MDM Narrative Medical decision making narrative: Symptom control medications ordered, concerning for sciatica but patient also has some symptoms of cord/cauda equina compression. Therefore I did a rectal the findings are noted above, as well as a postvoid residual which is 120 mL, urine shows no signs of infection; discussed with Dr. Avery. Given the scenario, he recommends an emergent MRI with and without contrast. This was performed, I reviewed the images and the report which I agree with, is negative for acute cauda equina syndrome or conus medullaris syndrome. Dr. Avery reviewed the images as well, her symptoms are mostly on the right, he states there is nothing that appears surgical there, she can follow-up as an outpatient, will likely be Dr. Hernandez. Will prescribe her something for pain and she is asking for light duty for the next week which I think is reasonable. Lab Data Attestation: I reviewed the patient's lab results. Labs: Laboratory Results - last 24 hr 09/17/23 14:03 Urine Color Yellow Urine Clarity Clear Urine pH 6.0 Ur Specific Woodman 1.015 Urine Protein Negative Urine Glucose (UA) Normal Urine Ketones Negative Urine Occult Blood Negative Urine Nitrite Negative Urine Bilirubin Negative Urine Urobilinogen Normal Ur Leukocyte Esterase Negative Urine RBC 0 SEEN Urine WBC 0-5 SEEN Ur Squamous Epith Cells 0-5 SEEN Urine Bacteria 0 SEEN Urine Mucus 0 SEEN Management Discussion w/another healthcare provider: Procedural Nurse (Spine surgery Dr. Avery) and Radiologist (Agrees with emergent MRI lumbosacral spine) Discharge Plan Triage Chief Complaint: Back ED Provider: Donovan Jackson Dx/Rx/DC Orders Clinical Impression: Acute low back pain with right-sided sciatica Instructions: ED Sciatica Prescriptions: New oxycodone-acetaminophen 5-325 mg tablet 1 tab PO Q6H PRN PRN (Reason: Pain) 3 Days Qty: 12 0RF No Action cariprazine 3 mg capsule 3 mg PO DAILY Qty: 30 2RF clonazepam 1 mg tablet 1 mg PO DAILY PRN (Reason: anxiety) 10 Days Qty: 10 1RF acetaminophen 500 mg tablet 1,000 mg PO Q8H PRN (Reason: Pain) albuterol sulfate [Ventolin HFA] 1 INHALER inhaler 2 puff inhalation Q4H PRN PRN (Reason: Wheezing) Qty: 1 0RF ibuprofen 800 mg tablet 800 mg PO TID PRN (Reason: pain) Qty: 30 0RF [employer] 18 mg iron- 240 mcg-120 mcg tablet 1 tab PO DAILY budesonide-formoterol [Breyna] 160-4.5 mcg/actuation HFA aerosol inhaler 1 inh inhalation BID Qty: 10.2 0RF pantoprazole [Protonix] 40 mg tablet,delayed release (DR/EC) 40 mg PO DAILY Qty: 30 0RF (DME) nebulizer and compressor Device See Rx Instructions .Route Qty: 1 0RF Rx Instructions: As directed ipratropium-albuterol 0.5 mg-3 mg(2.5 mg base)/3 mL Solution For Nebulization 3 ml inhalation Q4H.RT Qty: 180 0RF ondansetron 4 mg tablet,disintegrating 4 mg PO Q6H PRN (Reason: nausea and vomiting) Qty: 30 0RF Stand Alone Forms: ED Work / School Excuse Primary Care Provider: Sobeida Berger Referrals: Justo Hernandez MD [Med Staff - Active Staff] - Keep Dharmesh appointment Sobeida Berger MD [Primary Care Provider] - Print Language: Romansh Disposition Disposition: Home, Self Care
[2023-09-17] MEDS: Ondansetron 4 MG/2 ML Vial IV (13:13)
[2023-09-17] MEDS: Morphine 4 MG/ML Syringe IV (13:13)
--- NOTE | 2023-09-17 13:30 | MRI_ITS ---
STUDY: MRI LUMBAR SPINE WITH AND WITHOUT CONTRAST REASON FOR EXAM: Female, 48 years old. low back pain, R sciatica, RANDI findings TECHNIQUE: Standardized fat and water weighted pulse sequences were obtained in the sagittal and axial planes. IV 20cc clariscan was administered for the contrast portion of the examination. COMPARISON: September 06, 2021 report only FINDINGS: T11-12: Degenerative endplate changes. Narrowed disc space with desiccation of disc and minimal annular bulge without spinal stenosis only visualized on sagittal projection T12-L1: Normal endplates. Normal disc height, hydration and morphology. Normal bilateral facet joints. Normal central canal and bilateral lateral recesses. Normal bilateral intervertebral neural foramina. Normal lumbar lordosis. There is no substantial scoliosis. Normal conus medullaris that terminates at the L1-2: Normal endplates. Normal disc height, hydration and morphology. Normal bilateral facet joints. Normal central canal and bilateral lateral recesses. Normal bilateral intervertebral neural foramina. L2-3: Normal endplates. Normal disc height, hydration and morphology. Normal bilateral facet joints. Normal central canal and bilateral lateral recesses. Normal bilateral intervertebral neural foramina. L3-4: Postop change status post right laminotomy. Normal endplates. Normal disc height, desiccation minor annular bulge with tiny right foraminal disc protrusion. Mild facet arthropathy Normal central canal and bilateral lateral recesses. Mild to moderate left neural foraminal encroachment and minor right neural foraminal encroachment. Following contrast administration there is also noted to be epidural fibrosis in the right neural foramen as well as thickening and enhancement of the exiting nerve root L4-5: Postop change status post left laminotomy Normal endplates. Normal disc height, desiccation and minor annular bulge with tiny left foraminal annular tear and disc protrusion.. Bilateral facet arthropathy. Normal central canal and bilateral lateral recesses. Minor right neural foraminal encroachment and mild narrowing on the left as well as mild epidural fibrosis L5-S1: Normal endplates. Normal disc height, hydration and morphology. Mild facet arthropathy. Normal central canal and bilateral lateral recesses. Normal bilateral intervertebral neural foramina. Normal visualized sacral ala. Normal visualized paraspinous soft tissue structures. MRI/Spine Lumbar W/WO Contrast IMPRESSION: No evidence for acute fracture or other significant bony pathology. Status post laminotomy at L4-5 and L3-4 There is mild to moderate left neural foraminal encroachment at L3-4 and minor right neural foraminal encroachment with epidural enhancement and thickening as well as enhancement of the exiting nerve root At L4-5, there is mild bilateral neural foraminal encroachment secondary to disc disease and facet arthropathy as well as mild residual epidural fibrosis extending into the left neuroforamen. Electronically Signed: Jerzy Varghese MD at 16:44 EDT ,
[2023-09-17 14:06] LABS: Bacteria 0 SEEN /hpf (None Seen); Mucous, Urine 0 SEEN /hpf (<or=2+); Red Blood Cells-Urine 0 SEEN /hpf (0-5)
[2023-09-17 14:13] LABS: Color, Urine Yellow (Yellow); Glucose, Dipstick Normal (Normal); Ketone-Dipstick Negative (Negative); Leukocyte Esterase-Dipstick Negative /ul (Negative); Nitrite-Dipstick Negative (Negative); Occult Blood-Urine Negative /ul (Negative); Protein-Dipstick Negative (Negative); Specific Gravity, Urine 1.015 (1.002-1.030); Urine Bilirubin Dipstick Negative (Negative); Urine Clarity Clear (Clear); Urine Urobilinogen Normal (Normal)
[2023-09-17 14:22] LABS: Squamous Epithelial Cells - UA 0-5 SEEN /hpf (5-10); White Blood Cells 0-5 SEEN /hpf (0-5)
[2023-09-17] MEDS: fentaNYL 100 MCG/2 ML Ampul 50 MCG IV (14:34)
[2023-09-17] MEDS: LORazepam 2 MG/ML Syringe 1 MG IV (15:06)
[2023-09-17 16:31] VITALS: BP 127/92; PULSE 83; RESP 16; TEMP 36.8; O2SAT 97
== END 2023-09-17 16:50 | disposition home or self-care (01) ==
PROVIDERS: Emergency Provider Emergency Medicine; PCP Internal Medicine; Visit Provider Emergency Medicine
DX: M54.41 Lumbago with sciatica, right side (principal); J44.9 Chronic obstructive pulmonary disease, unspecified; F17.210 Nicotine dependence, cigarettes, uncomplicated; B19.20 Unspecified viral hepatitis C without hepatic coma; Z79.51 Long term (current) use of inhaled steroids; F41.9 Anxiety disorder, unspecified; Z90.49 Acquired absence of other specified parts of digestive tract; Z98.51 Tubal ligation status; F17.290 Nicotine dependence, other tobacco product, uncomplicated
CPT/HCPCS: 72158; 81001; 96374; 96375; 99283; A9575; A4216; J2405

== ENCOUNTER 2023-11-20 10:21 | Emergency (ER) | payer MEDICAID, SELFPAY ==
[2023-11-20 10:22] VITALS: BP 126/77; PULSE 89; RESP 16; TEMP 35.7; O2SAT 97
--- NOTE | 2023-11-20 11:00 | EKG12_ITS ---
Test Reason : BACK PAIN Blood Pressure : / mmHG Vent. Rate : 094 BPM Atrial Rate : 094 BPM P-R Int : 136 ms QRS Dur : 078 ms QT Int : 344 ms P-R-T Axes : 040 081 043 degrees QTc Int : 430 ms Normal sinus rhythm Normal ECG Confirmed by DALIA VERDUZCO ([id number]), editor trade journal LUIS WOOD ([id number]) on 11/24/2023 8:29:05 AM Referred By: Confirmed By:DALIA VERDUZCO
--- NOTE | 2023-11-20 11:02 | ED.VIS.BACK ---
HPI History of Present Illness Chief Complaint: Back Detail of Chief Complaint: Low back pain, chest pain, sore on lip Informant: patient Narrative Narrative: Patient presents to the emergency department with main complaint of her back pain that has been chronic for months. She sees a back surgeon and in pain management awaiting approval from insurance for spinal and epidural injections. 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 Denies any falls or other injuries. She had surgery on her back in 2020. Patient sees Dr. Avery and Dr. Vences. She tells me she had an MRI within the last 2 months. Patient also states that she over the last week she has had some intermittent sharp stabbing pains in the center of her chest that last a few minutes and then go away. She thinks are brought on by stress. Patient also states that this morning she woke up with a sore to the right lower lip and she has had valacyclovir for them in the past that she does get cold sores. She denies recent illness otherwise. Regarding her back pain she states that she chronically has numbness and tingling down both legs but more significant on the right side. Denies weakness of extremities. She denies any change in bowel or bladder function. She denies urinary symptoms [facility] Medical History (Updated 11/20/23 @ 12:[address] Sukhdeep Ribeiro, ) Schizoaffective disorder, bipolar type History of herniated intervertebral disc Wears glasses Schizophrenia Bipolar disorder Alcohol use Easy bruising Hepatitis Injury of back Peptic ulcer History of IBS Smoker MARIA INES (obstructive sleep apnea) Shortness of breath on exertion Chronic cough Leg cramps History of stress test Hx of degenerative disc disease Herniated cervical disc Lumbar radicular pain COPD (chronic obstructive pulmonary disease) Chronic pain Ulnar nerve laceration Carpal tunnel syndrome COPD exacerbation Polysubstance abuse Tobacco use (Unknown) Asthma Anxiety Hepatitis C Home Medications ?Medication ?Instructions ?Recorded ?Last Taken ?Type acetaminophen 500 mg tablet 1,000 mg PO Q8H PRN Pain 07/05/21 06/26/23 History albuterol sulfate 90 mcg/actuation 2 puff inhalation Q4H PRN PRN 07/05/21 06/26/23 Rx aerosol inhaler (Ventolin HFA) Wheezing ##1 ibuprofen 800 mg tablet 800 mg PO TID PRN pain #30 tabs 09/10/21 06/26/23 Rx nomyumub-xmaw-rta-iron 18 mg-folic 1 tab PO DAILY SUPPLEMENT 06/26/23 06/26/23 History 240 mcg-vit K 120 mcg-herbal tablet ([employer]) budesonide-formoterol HFA 160 1 inh inhalation BID #10.2 grams 06/27/23 Unknown Rx mcg-4.5 mcg/actuation aerosol inhaler (Breyna) ipratropium 0.5 mg-albuterol 3 mg 3 ml inhalation Q4H.RT #180 mL 06/27/23 Unknown Rx (2.5 mg base)/3 mL nebulization soln nebulizer and compressor #1 ea 06/27/23 Unknown Rx cariprazine 3 mg capsule 3 mg PO DAILY #30 caps 09/09/23 Unknown Rx clonazepam 1 mg tablet 1 mg PO DAILY PRN anxiety 30 days 11/03/23 Unknown Rx #30 tabs quetiapine 50 mg tablet 50 mg PO QHS #30 tabs 11/03/23 Unknown Rx oxycodone-acetaminophen 5 mg-325 1 tab PO Q8H PRN pain 2 days #10 11/20/23 Unknown Rx mg tablet (Percocet) tabs valacyclovir 1 gram tablet 1,000 mg PO BID #14 tabs 11/20/23 Unknown Rx Allergy/AdvReac Type Severity Reaction Status Date / Time hydrocodone Allergy Intermediate Hives Verified 11/20/23 10:24 Surgical History History of back surgery History of lumbar laminectomy History of back surgery History of decompression of ulnar nerve History of cholecystectomy History of appendectomy History of tubal ligation Social History household members: none housing: house Smoking Status: Current every day smoker tobacco type: cigarettes and e-cigarettes substance use type: does not use ROS ROS ED Review of Systems ROS Unobtainable: other Constitutional Constitutional ED: Reports lethargy; Denies chills, fever(s), sweats or weight loss Eyes Eyes: Denies blurry vision, change in vision or diplopia ENT ENT ED: Reports other Details: Sore on right lower lip ; Denies rhinorrhea or sore throat Cardiovascular Cardiovascular: Reports chest pain; Denies orthopnea or racing heartbeat Respiratory/Chest Respiratory/Chest: Denies cough, dyspnea, dyspnea on exertion, orthopnea or sputum Gastrointestinal Gastrointestinal: Denies abdominal pain, diarrhea, nausea or vomiting Genitourinary Genitourinary ED: Denies dysuria, hematuria or urinary frequency Musculoskeletal Musculoskeletal: Reports back pain; Denies arthralgias, myalgias or neck pain Integumentary Denies abscess, Abrasions or rash Neurologic Neurologic: Denies headache(s) or weakness Psychiatric Psychiatric: Denies anxiety, depression or suicidal thoughts Endocrine Endocrinology: Denies polydipsia, polyphagia or polyuria Hematologic/Lymphatic Hematologic/Lymphatic: Denies easy bleeding, easy bruising or lymphadenopathy Allergic/Immunologic Allergic/Immunologic ED: Denies mouth swelling, tongue swelling or urticaria EXAM Physical Exam Const Vital Signs: 11/20/23 10:22 Temperature 96.3 F L Temperature Source Temporal Pulse Rate 89 Respiratory Rate 16 Blood Pressure 126/77 H Blood Pressure Mean 93 Pulse Ox 97 Oxygen Delivery Method Room Air Positive well nourished and well developed General Appearance ED: well developed and NAD HEENT Reports TM's clear and moist mucous membranes HEENT Narrative: Patient with a herpetic lesion on the right lower lip normocephalic and atraumatic; Negative for trauma or tenderness Tympanic Membrane ED: Yes TM's clear Eyes PERRL and EOMs intact bilaterally General Eye ED: Negative for pale conjunctiva or scleral icterus Neck no lymphadenopathy, supple and no JVD General: Negative for tenderness Chest Wall inspection of chest normal and palpation of chest normal Chest: Negative for tenderness Resp normal respiratory effort and clear to auscultation bilaterally Effort and Inspection: Negative for respiratory distress or pain with movement Auscultation: Negative for rhonchi, wheezes or diminished lung sounds Cardio regular rate, regular rhythm, S1 normal heart sound, S2 normal heart sound and no murmurs Peripheral Pulses: pulses 2+ throughout GI normal to inspection, nondistended, normoactive bowel sounds, soft to palpation, non-tender, non-distended and no masses Back/Spine no CVA tenderness and no thoracic nor lumbar tenderness Back/Spine Narrative: Mild diffuse tenderness over the lumbar paraspinal musculature bilaterally. She has negative straight leg raises. Deep tendon reflexes plus 2 out of 4 bilaterally at the patella and Achilles. She has normal L5 extension. No significant tenderness over the thoracic or lumbar spine. No erythema or warmth noted to her back to Extremity normal to inspection General Extremety ED: Negative for edema General Extremity: Negative for edema Neuro oriented x3, CN's II-XII intact bilaterally, no sensory deficits noted and gait normal Sensorium / Orientation: awake, alert, oriented to person, oriented to place and oriented to time Motor Exam: strength 5/5 throughout and strength abnormal Psych mental status grossly normal Skin no rashes or lesions noted and no wounds MDM MDM MDM Narrative Medical decision making narrative: Patient presents with main complaint of back pain and also intermittent chest discomfort for the last week that is not exertional. She describes it as sharp and stabbing and lasts a few minutes without any radiation. Usually brought on by stress. Not having chest pain currently. She tells me her brother had an IL in his 20s. This point will obtain basic labs as well as an EKG which showed sinus rhythm with rate of 94 bpm with no acute ST segment changes. CBC with differential was normal. Chemistries unremarkable. D-dimer normal. Troponin normal. Chest x-ray 1 view unremarkable. At this point suspect she has atypical chest pain do not think he send acute right syndrome or PE. Her back pain is chronic and had an MRI on 627 that I did review the results of did not indicate any type of surgical acute pathology. She had some L3-4 and L4-5 moderate foraminal and encroachment left greater than right. History of prior laminectomy. At this time she has no signs of cauda equina. Patient heart score is 2. She was medicated in department initially with morphine and Zofran and was given a milligram of Dilaudid IV. Patient also has a herpetic lesion on her right lower lip which she has had in the past. I will write her a prescription for valacyclovir. Patient also will be given a prescription for a few Percocet and advised to follow-up with her back surgeon and maintenance painter. Lab Data Attestation: I reviewed the patient's lab results. Labs: Laboratory Results - last 24 hr 11/20/23 11:10 WBC 9.3 RBC 4.58 Hgb 13.5 Hct 41.0 MCV 89.5 MCH 29.5 MCHC 32.9 RDW Std Deviation 40.8 RDW Coeff of Bianca 12.5 Plt Count 268 MPV 9.0 Immature Gran % (Auto) 0.400 Neut % (Auto) 69.5 Lymph % (Auto) 22.6 [place] % (Auto) 5.8 Eos % (Auto) 1.4 Baso % (Auto) 0.3 Absolute Neuts (auto) 6.4 Absolute Lymphs (auto) 2.10 Nucleated RBC % 0 D-Dimer Quant (PE/DVT) 0.28 Sodium 138 Potassium 4.1 Chloride 106 Carbon Dioxide 27.0 Anion Gap 5 BUN 12 Creatinine 0.69 Est GFR (MDRD) Af Amer 116 Est GFR (MDRD) Non-Af 96 BUN/Creatinine Ratio 17.3 Glucose 99 Calcium 9.2 Troponin I High Sens < 3 L Radiography Diagnostic Testing: Clinical Impression(s) from Imaging Studies Chest X-Ray 11/20/23 11:25 IMPRESSION: Normal x-ray examination of the chest. Electronically Signed: Dmitri Ramesh MD at 11:53 EDT , 1 view chest x-ray obtained interpreted by myself no evidence of infiltrate or pneumothorax or acute disease process. Radiology in agreement EKG Initial EKG: Attestation: I personally reviewed and interpreted this EKG as follows: Comments: Sinus rhythm with a ventricular rate of 94 bpm with no acute ST segment changes Discharge Plan Triage Chief Complaint: Back ED Provider: Sukhdeep Ribeiro Dx/Rx/DC Orders Clinical Impression: Back pain, Herpes simplex, Chest pain Instructions: Herpes, ED Back Pain (Acute or Chronic), ED Chest Pain, Uncertain Cause Prescriptions: New valacyclovir 1 gram tablet 1,000 mg PO BID Qty: 14 0RF oxycodone-acetaminophen [Percocet] 5-325 mg tablet 1 tab PO Q8H PRN (Reason: pain) 2 Days Qty: 10 0RF No Action cariprazine 3 mg capsule 3 mg PO DAILY Qty: 30 2RF quetiapine 50 mg tablet 50 mg PO QHS Qty: 30 2RF clonazepam 1 mg tablet 1 mg PO DAILY PRN (Reason: anxiety) 30 Days Qty: 30 0RF acetaminophen 500 mg tablet 1,000 mg PO Q8H PRN (Reason: Pain) albuterol sulfate [Ventolin HFA] 1 INHALER inhaler 2 puff inhalation Q4H PRN PRN (Reason: Wheezing) Qty: 1 0RF ibuprofen 800 mg tablet 800 mg PO TID PRN (Reason: pain) Qty: 30 0RF [employer] 18 mg iron- 240 mcg-120 mcg tablet 1 tab PO DAILY budesonide-formoterol [Breyna] 160-4.5 mcg/actuation HFA aerosol inhaler 1 inh inhalation BID Qty: 10.2 0RF (DME) nebulizer and compressor Device See Rx Instructions .Route Qty: 1 0RF Rx Instructions: As directed ipratropium-albuterol 0.5 mg-3 mg(2.5 mg base)/3 mL Solution For Nebulization 3 ml inhalation Q4H.RT Qty: 180 0RF Primary Care Provider: Sobeida Berger Referrals: Sobeida Berger MD [Primary Care Provider] - 3-5 Days Activity Restrictions/Additional Instructions: Follow-up with your back surgeon in maintenance painter. Print Language: Georgian Disposition Disposition: Home, Self Care
[2023-11-20] MEDS: 0.9% Normal Saline (1000mL) 1,000 ML 150 ML IV (11:08)
[2023-11-20] MEDS: Morphine 4 MG/ML Syringe IV (11:09)
[2023-11-20] MEDS: Ondansetron 4 MG/2 ML Vial IV (11:09)
[2023-11-20 11:16] LABS: Absolute Neutrophil Count 6.4 X10^3/uL (2.0-7.7); Basophil# 0.03 X10^3/uL; Basophil% 0.3 % (0-1); Eosinophil# 0.13 X10^3/uL; Eosinophils% 1.4 % (0-5); Hemoglobin 13.5 g/dL (12.0-15.0); Lymphocyte % 22.6 % (19-41); Mean Corp Hgb Conc 32.9 g/dL (32-36); Mean Corpuscular Hgb 29.5 pg (27.0-32.0); Mean Corpuscular Volume 89.5 fL (81-99); Monocyte# 0.54 X10^3/uL; Monocyte% 5.8 % (0-10); NRBC Flagged by Analyzer 0 % (0-5); Neutrophil # 6.44 X10^3/uL (2.7-7.7); Neutrophil % 69.5 % (47-70); Platelet Count 268 K/mm3 (150-450); RBC Distribution Width CV 12.5 % (11.6-14.6); RBC Distribution Width SD 40.8 fl (35.1-43.9); Red Blood Count 4.58 M/mm3 (4.2-5.4); White Blood Count 9.3 K/mm3 (4.4-11.0)
--- NOTE | 2023-11-20 11:25 | RAD_ITS ---
STUDY: X-RAY CHEST REASON FOR EXAM: Female, 48 years old. Chest pain TECHNIQUE: Single AP portable view of the chest. COMPARISON: Comparison is made with prior study of July 07, 2023. FINDINGS: The lungs are clear and expanded. There is no demonstrated pleural abnormality. Normal size heart. Normal mediastinum and violetta. Normal visualized pulmonary arteries. Normal visualized aortic arch and descending thoracic aorta. Normal visualized thoracic spine. Normal visualized ribs, clavicles, and shoulders. There is no demonstrated abnormality of the visualized soft tissue structures of the upper abdomen. RAD/Chest 1 View (Portable) IMPRESSION: Normal x-ray examination of the chest. Electronically Signed: Dmitri Ramesh MD at 11:53 EDT ,
[2023-11-20 11:30] LABS: D-Dimer Quantitative (DVT/PE) 0.28 FEU/ug/m (0.27-0.49)
[2023-11-20 11:34] LABS: Anion Gap 5 (5-15); BUN 12 mg/dL (7-18); BUN/Creat Ratio 17.3 RATIO (10-20); Calcium,Total 9.2 mg/dL (8.5-10.1); Chloride 106 mmol/L (98-107); Creatinine, Serum 0.69 mg/dL (0.55-1.02); EST Glomerular Filtration Rate 96 mL/min (>60); Est Glom Filt Rate - Afr Amer 116 mL/min (>60); Glucose 99 mg/dL (74-106); Potassium 4.1 mmol/L (3.5-5.1); Sodium Level 138 mmol/L (136-145); Troponin-I HS < 3 pg/mL (3.0-54.0)
[2023-11-20] MEDS: HYDROmorphone 1 MG/ML Syringe IV (11:47)
[2023-11-20 12:43] VITALS: BP 123/100; PULSE 87; RESP 16; TEMP 36.2; O2SAT 99
== END 2023-11-20 12:45 | disposition home or self-care (01) ==
PROVIDERS: Emergency Provider Emergency Medicine; PCP Internal Medicine; Visit Provider Emergency Medicine
DX: M54.50 Low back pain, unspecified (principal); X50.0XXA Overexertion from strenuous movement or load, initial encounter; G89.29 Other chronic pain; B00.1 Herpesviral vesicular dermatitis; R07.89 Other chest pain; F17.210 Nicotine dependence, cigarettes, uncomplicated; F17.290 Nicotine dependence, other tobacco product, uncomplicated
CPT/HCPCS: 71045; 80048; 84484; 85025; 85379; 93005; 96361; 96374; 96375; 99284; J7030; A4216; J2405

== ENCOUNTER 2023-12-01 12:46 | Outpatient (RCR) | payer MEDICAID, SELFPAY ==
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
--- NOTE | 2024-01-26 14:22 | HP.PT.NRP ---
Patient Information Patient Information: SHAHNAZ ESPANA was seen in my office for initial evaluation on 12/01/23. The following Plan of Care was established for this patient: POC Established Initial Frequency: 2-3x /Week Initial Duration: 2-4 Months Anticipated Interventions Patient/Client Instruction: Educate patient on: Condition, Plan of Care and Risk Factors For the Purpose of:: To improve self management Therapeutic Exercise to Include: Strength training, Body mechanics, Postural training, Flexibilty training, Gait and locomotor training, Neuromotor development, In an aquatic setting, Dynamic Lumbar Stabilization and Scapular Strength/Stabilization For the Purpose of:: To decrease pain, To increase ROM, To improve muscle performance and motor function, To improve ability to perform ADL's, To increase tolerance to activity/condition/position, To improve ability of physical actions for home/community/work/leisure, To improve gait and locomotor functions, To increase flexibility/ROM and To improve self management Cryotherapy (ice pack, ice massage): Yes Thermo therapy (hot pack): Yes For the Purpose of:: To decrease pain, To decrease swelling/inflammation and To improve nutrient delivery to tissue Last Seen Last Seen: This patient was last seen in our office 12/01/23. Pertinent comments regarding their Physical therapy will appear below: It has been my pleasure to see this patient for a total of 1 visit. This patient has not returned to Physical Therapy for more visits and is appropriate to return to MD for further follow-up as needed. At this point I will be discontinuing this patient from physical therapy. I would be happy to see this patient again in the future if found appropriate by the physician. Thank you! Fatuma Santacruz, PT, Cert MDT Balance/Gait/Functional tests Balance/Special Test Scores Oswestry Low Back Score: 34 Oswestry Neck Score: 29
== END 2023-12-01 19:00 | disposition home or self-care (01) ==
LOC: PT 12:46
PROVIDERS: PCP Internal Medicine; Referring Provider Anesthesiology; Visit Provider Anesthesiology
DX: M54.12 Radiculopathy, cervical region (principal); M54.16 Radiculopathy, lumbar region
CPT/HCPCS: 97112; 97162

== ENCOUNTER 2023-12-03 07:49 | Emergency (ER) | payer MEDICAID, SELFPAY ==
[2023-12-03 07:51] VITALS: BP 84/66; PULSE 94; RESP 20; TEMP 37; O2SAT 96; BMI 42.2
--- NOTE | 2023-12-03 07:59 | RAD_ITS ---
STUDY: X-RAY CHEST REASON FOR EXAM: Female, 48 years old. Cough TECHNIQUE: Single AP portable view of the chest. COMPARISON: Comparison is made with prior study November 20, 2023. FINDINGS: EKG electrodes are seen. The lungs are clear and expanded. There is no demonstrated pleural abnormality. Normal size heart. Normal mediastinum and violetta. Normal visualized pulmonary arteries. Normal visualized aortic arch and descending thoracic aorta. Normal visualized thoracic spine. Normal visualized ribs, clavicles, and shoulders. There is no demonstrated abnormality of the visualized soft tissue structures of the upper abdomen. RAD/Chest 1 View (Portable) IMPRESSION: Normal x-ray examination of the chest. Electronically Signed: Dmitri Ramesh MD at 8:45 EDT ,
--- NOTE | 2023-12-03 07:59 | EKG12_ITS ---
Test Reason : SOB Blood Pressure : / mmHG Vent. Rate : 096 BPM Atrial Rate : 096 BPM P-R Int : 146 ms QRS Dur : 086 ms QT Int : 342 ms P-R-T Axes : 031 074 025 degrees QTc Int : 432 ms Normal sinus rhythm Normal ECG Confirmed by JAKUB ROLLINS MD ([id number]), greeting card editor LUIS WOOD ([id number]) on 12/05/2023 8:08:04 AM Referred By: TL Confirmed By:JAKUB ROLLINS MD
--- NOTE | 2023-12-03 08:01 | ED.VIS.DYS ---
HPI History of Present Illness Chief Complaint: Shortness of Breath Informant: patient Narrative Narrative: Presents with increasing cough sore throat headache muscle aches since yesterday. Nausea and vomiting. No hematemesis. Was at work all night with symptoms. Coworker sick with her spouse being diagnosed with COVID. Patient with COVID infection past feeling similar. States a year ago was hospitalized due to low oxygen. History of COPD. Reports wheezing. Denies diarrhea however states stools are getting loose. Prior similar symptoms: Yes PFSH PFSH Medical History Schizoaffective disorder, bipolar type History of herniated intervertebral disc Wears glasses Schizophrenia Bipolar disorder Alcohol use Easy bruising Hepatitis Injury of back Peptic ulcer History of IBS Smoker MARIA INES (obstructive sleep apnea) Shortness of breath on exertion Chronic cough Leg cramps History of stress test Hx of degenerative disc disease Herniated cervical disc Lumbar radicular pain COPD (chronic obstructive pulmonary disease) Chronic pain Ulnar nerve laceration Carpal tunnel syndrome COPD exacerbation Polysubstance abuse Tobacco use (Unknown) Asthma Anxiety Hepatitis C Home Medications ?Medication ?Instructions ?Recorded ?Last Taken ?Type acetaminophen 500 mg tablet 1,000 mg PO Q8H PRN Pain 07/05/21 06/26/23 History albuterol sulfate 90 mcg/actuation 2 puff inhalation Q4H PRN PRN 07/05/21 06/26/23 Rx aerosol inhaler (Ventolin HFA) Wheezing ##1 ibuprofen 800 mg tablet 800 mg PO TID PRN pain #30 tabs 09/10/21 06/26/23 Rx ounjxtxd-dyzy-jjj-iron 18 mg-folic 1 tab PO DAILY SUPPLEMENT 06/26/23 06/26/23 History 240 mcg-vit K 120 mcg-herbal tablet ([employer]) budesonide-formoterol HFA 160 1 inh inhalation BID #10.2 grams 06/27/23 Unknown Rx mcg-4.5 mcg/actuation aerosol inhaler (Breyna) ipratropium 0.5 mg-albuterol 3 mg 3 ml inhalation Q4H.RT #180 mL 06/27/23 Unknown Rx (2.5 mg base)/3 mL nebulization soln nebulizer and compressor #1 ea 06/27/23 Unknown Rx quetiapine 50 mg tablet 50 mg PO QHS #30 tabs 11/03/23 Unknown Rx oxycodone-acetaminophen 5 mg-325 1 tab PO Q8H PRN pain 2 days #10 11/20/23 Unknown Rx mg tablet (Percocet) tabs valacyclovir 1 gram tablet 1,000 mg PO BID #14 tabs 11/20/23 Unknown Rx cariprazine 3 mg capsule 3 mg PO DAILY #30 caps 12/01/23 Unknown Rx albuterol sulfate 2.5 mg/3 mL 2.5 mg (3 mL) inhalation Q4H PRN 12/03/23 Unknown Rx (0.083 %) solution for nebulization #25 vials albuterol sulfate 90 mcg/actuation 1 - 2 puff inhalation Q4H PRN PRN 12/03/23 Unknown Rx aerosol inhaler (Ventolin HFA) Wheezing ##1 azithromycin 250 mg tablet 250 mg PO DAILY #4 TABLETS 12/03/23 Unknown Rx ondansetron 4 mg disintegrating 4 mg PO Q8H PRN PRN Nausea #10 tabs 12/03/23 Unknown Rx tablet prednisone 20 mg tablet 60 mg (3 x 20 mg) PO DAILY #12 12/03/23 Unknown Rx TABLETS Allergy/AdvReac Type Severity Reaction Status Date / Time hydrocodone Allergy Intermediate Hives Verified 12/03/23 07:50 Surgical History History of back surgery History of lumbar laminectomy History of back surgery History of decompression of ulnar nerve History of cholecystectomy History of appendectomy History of tubal ligation Social History household members: none housing: house Smoking Status: Current every day smoker tobacco type: cigarettes and e-cigarettes substance use type: does not use ROS ROS ED Constitutional Constitutional ED: Denies chills, fever(s) or sweats Eyes Eyes: Denies change in vision ENT ENT ED: Reports sore throat; Denies dysphagia Cardiovascular Cardiovascular: Denies chest pain, leg edema, palpitations or racing heartbeat Respiratory/Chest Respiratory/Chest: Reports cough and dyspnea; Denies dyspnea on exertion Gastrointestinal Gastrointestinal: Reports nausea and vomiting; Denies abdominal pain or diarrhea Genitourinary Genitourinary ED: Denies dysuria, hematuria or urinary frequency Musculoskeletal Musculoskeletal: Denies back pain, extremity pain or neck pain Integumentary Denies rash or wounds Neurologic Neurologic: Reports headache(s); Denies paresthesias or weakness EXAM Physical Exam Const Vital Signs: 12/03/23 07:51 12/03/23 07:54 12/03/23 08:09 Temperature 98.6 F Temperature Source Oral Pulse Rate 94 90 Respiratory Rate 20 H 20 H Respiratory Effort Normal Non-Labored Respiratory Depth Normal Respiratory Pattern Normal Tachypnea Blood Pressure 84/66 L Blood Pressure Mean 72 Pulse Ox 96 Oxygen Delivery Method Room Air Room Air 12/03/23 08:50 Temperature Temperature Source Pulse Rate 86 Respiratory Rate 22 H Respiratory Effort Respiratory Depth Respiratory Pattern Blood Pressure 139/99 H Blood Pressure Mean 112 Pulse Ox 98 Oxygen Delivery Method Room Air Positive well nourished and well developed Constitutional Narrative: Occasional coughing in the room, no respiratory distress, nontoxic General Appearance ED: well developed and NAD HEENT Reports moist mucous membranes normocephalic and atraumatic Eyes EOMs intact bilaterally and conjunctivae normal General Eye ED: Yes normal appearance of both eyes Neck no lymphadenopathy, supple and no meningeal signs General: Negative for tenderness Chest Wall Chest: Negative for tenderness Resp Resp Narrative: coarse breath sounds Effort and Inspection: symmetric chest movement; Negative for respiratory distress Cardio regular rate, regular rhythm and no murmurs Peripheral Pulses: pulses 2+ throughout GI normal to inspection, nondistended, normoactive bowel sounds and non-tender Palpation: Negative for guarding or rebound tenderness present Extremity normal to inspection General Extremety ED: Negative for edema or tenderness General Extremity: Negative for edema Neuro oriented x3 and no sensory deficits noted Sensorium / Orientation: awake and alert Skin no rashes or lesions noted and no wounds MDM MDM MDM Narrative Medical decision making narrative: Interventions / MDM: Differential diagnosis: COPD exacerbation, nausea vomiting, Diagnosis considered but do not suspect: Pneumonia however x-ray negative, electrolyte abnormalities, no clinical meningitis. My EKG interpretation: Sinus rhythm 96, no ST or T wave changes. QTc 432. Imaging independently reviewed and interpreted by myself: Chest x-ray 1 view: No acute process also read by radiology. External documents reviewed: N/A Test considered but not ordered:N/A ED course: Blood pressure 84/66. No lightheaded symptoms. Given IV fluids due to nausea vomiting as well as, no meningismus. Coarse breath sounds he is given aerosol treatments Solu-Medrol. With Zofran. Viral symptoms laboratory studies obtained, COVID, flu, RSV sent. Chest x-ray ordered. 0920: Chest x-ray negative labs stable. COVID flu RSV negative. Clinically feeling better on reevaluation. Will p.o. challenge, will ambulate with a pulse ox. 1000: Pulse ox ambulatory 94 to 95%. Orally challenge with no difficulties. First dose of antibiotics Zithromax in the ED treatment cortical twice here for her COPD. Prescription for Zofran sent to her pharmacy., Antibiotics, steroids, refill of her inhaler medication sent to her pharmacy also. Return precaution discussed. All questions were answered. Re-evaluation: stable Disposition discussed with patient/family/significant other: Patient Case discussed with consulting clinician: N/A This note was generated with [employer] dictation software. It may contain incorrect words, spelling, and punctuation that were not noted in checking the note before signing. Lab Data Attestation: I reviewed the patient's lab results. Labs: Laboratory Results - last 24 hr 12/03/23 07:53 WBC 10.5 RBC 4.60 Hgb 13.3 Hct 41.9 MCV 91.1 MCH 28.9 MCHC 31.7 L RDW Std Deviation 41.6 RDW Coeff of Bianca 12.9 Plt Count 282 MPV 9.4 Immature Gran % (Auto) 0.700 Neut % (Auto) 80.2 H Lymph % (Auto) 12.0 L [place] % (Auto) 5.9 Eos % (Auto) 0.9 Baso % (Auto) 0.3 Absolute Neuts (auto) 8.4 H Absolute Lymphs (auto) 1.26 Nucleated RBC % 0 Sodium 135 L Potassium 4.0 Chloride 104 Carbon Dioxide 26.0 Anion Gap 5 BUN 11 Creatinine 0.58 Estim Creat Clear Calc 135.70 Est GFR (MDRD) Af Amer 143 Est GFR (MDRD) Non-Af 118 BUN/Creatinine Ratio 19.1 Glucose 108 H Calcium 9.9 Radiography Diagnostic Testing: Clinical Impression(s) from Imaging Studies Chest X-Ray 12/03/23 07:59 IMPRESSION: Normal x-ray examination of the chest. Electronically Signed: Dmitri Ramesh MD at 8:45 EDT , Discharge Plan Triage Chief Complaint: Shortness of Breath Other Complaint: Nausea/Vomiting ED Provider: Blade Maddox Dx/Rx/DC Orders Clinical Impression: COPD exacerbation, Nausea & vomiting Instructions: ED COPD Flare, ED Vomiting (Adult) Prescriptions: New azithromycin 250 mg tablet 250 mg PO DAILY Qty: 4 0RF prednisone 20 mg tablet 60 mg PO DAILY Qty: 12 0RF albuterol sulfate [Ventolin HFA] 90 mcg/actuation HFA aerosol inhaler 1 - 2 puff inhalation Q4H PRN PRN (Reason: Wheezing) Qty: 1 0RF ondansetron 4 mg tablet,disintegrating 4 mg PO Q8H PRN PRN (Reason: Nausea) Qty: 10 0RF albuterol sulfate 2.5 mg /3 mL (0.083 %) solution for nebulization 2.5 mg inhalation Q4H PRN Qty: 25 0RF Rx Instructions: Use q4 hours and PRN for wheezing No Action quetiapine 50 mg tablet 50 mg PO QHS Qty: 30 2RF acetaminophen 500 mg tablet 1,000 mg PO Q8H PRN (Reason: Pain) albuterol sulfate [Ventolin HFA] 1 INHALER inhaler 2 puff inhalation Q4H PRN PRN (Reason: Wheezing) Qty: 1 0RF ibuprofen 800 mg tablet 800 mg PO TID PRN (Reason: pain) Qty: 30 0RF valacyclovir 1 gram tablet 1,000 mg PO BID Qty: 14 0RF oxycodone-acetaminophen [Percocet] 5-325 mg tablet 1 tab PO Q8H PRN (Reason: pain) 2 Days Qty: 10 0RF [employer] 18 mg iron- 240 mcg-120 mcg tablet 1 tab PO DAILY budesonide-formoterol [Breyna] 160-4.5 mcg/actuation HFA aerosol inhaler 1 inh inhalation BID Qty: 10.2 0RF (DME) nebulizer and compressor Device See Rx Instructions .Route Qty: 1 0RF Rx Instructions: As directed ipratropium-albuterol 0.5 mg-3 mg(2.5 mg base)/3 mL Solution For Nebulization 3 ml inhalation Q4H.RT Qty: 180 0RF cariprazine 3 mg capsule 3 mg PO DAILY Qty: 30 2RF Stand Alone Forms: ED Work / School Excuse Primary Care Provider: Sobeida Berger Referrals: Sobeida Berger MD [Primary Care Provider] - Activity Restrictions/Additional Instructions: Chest x-ray. Lab stable. COVID, influenza, RSV are negative. Taken finish steroids antibiotic scribed. Zofran as needed. Continue oral fluids for hydration follow-up with your doctor. Symptoms worsen after with medications, return to ED for reevaluation. Print Language: Bruneian Disposition Disposition: Home, Self Care
[2023-12-03 08:09] VITALS: PULSE 90; RESP 20
[2023-12-03] MEDS: Ondansetron 4 MG/2 ML Vial IV (08:09)
[2023-12-03] MEDS: MethylPREDNISolone 125 MG/2 ML Vial IV (08:09)
[2023-12-03] MEDS: 0.9% Normal Saline (1000mL) 1,000 ML 1000 ML IV (08:09)
[2023-12-03] MEDS: Ipratropium/Albuterol Sulfate 3 ML AMPUL.NEB INHALATION (08:09)
[2023-12-03 08:13] LABS: Absolute Lymphocyte Count 1.26 X10^3/uL (0.83-4.51); Absolute Neutrophil Count 8.4 X10^3/uL (2.0-7.7); Basophil# 0.03 X10^3/uL; Basophil% 0.3 % (0-1); Eosinophil# 0.09 X10^3/uL; Eosinophils% 0.9 % (0-5); Hematocrit 41.9 % (37-47); Hemoglobin 13.3 g/dL (12.0-15.0); Lymphocyte # 1.26 X10^3/ul (0.83-4.51); Mean Corp Hgb Conc 31.7 g/dL (32-36); Mean Corpuscular Hgb 28.9 pg (27.0-32.0); Mean Corpuscular Volume 91.1 fL (81-99); Mean Platelet Vol. 9.4 fl (6.2-12.0); Monocyte# 0.62 X10^3/uL; Monocyte% 5.9 % (0-10); NRBC Flagged by Analyzer 0 % (0-5); Neutrophil # 8.41 X10^3/uL (2.7-7.7); Neutrophil % 80.2 % (47-70); Platelet Count 282 K/mm3 (150-450); RBC Distribution Width CV 12.9 % (11.6-14.6); RBC Distribution Width SD 41.6 fl (35.1-43.9); White Blood Count 10.5 K/mm3 (4.4-11.0)
[2023-12-03 08:24] LABS: Anion Gap 5 (5-15); BUN 11 mg/dL (7-18); BUN/Creat Ratio 19.1 RATIO (10-20); Calcium,Total 9.9 mg/dL (8.5-10.1); Chloride 104 mmol/L (98-107); Creatinine, Serum 0.58 mg/dL (0.55-1.02); EST Glomerular Filtration Rate 118 mL/min (>60); Est Glom Filt Rate - Afr Amer 143 mL/min (>60); Glucose 108 mg/dL (74-106); Sodium Level 135 mmol/L (136-145)
[2023-12-03 08:50] VITALS: BP 139/99; PULSE 86; RESP 22; O2SAT 98
[2023-12-03 09:42] VITALS: O2SAT 94
[2023-12-03 10:00] VITALS: BP 140/79; PULSE 100; RESP 24; O2SAT 97
[2023-12-03 10:07] VITALS: BP 140/79; PULSE 100; RESP 24; TEMP 36.2; O2SAT 97
[2023-12-03] MEDS: Azithromycin 250 MG Tablet 500 MG PO (10:10)
== END 2023-12-03 10:15 | disposition home or self-care (01) ==
PROVIDERS: Emergency Provider Emergency Medicine; PCP Internal Medicine; Visit Provider Emergency Medicine
DX: J44.1 Chronic obstructive pulmonary disease with (acute) exacerbation (principal); R11.2 Nausea with vomiting, unspecified; F17.210 Nicotine dependence, cigarettes, uncomplicated; F17.290 Nicotine dependence, other tobacco product, uncomplicated; Z79.51 Long term (current) use of inhaled steroids; Z86.16 Personal history of COVID-19
CPT/HCPCS: 71045; 80048; 85025; 87631; 93005; 94640; 96361; 96374; 96375; 99285; J7030; A4216; J2405

== ENCOUNTER → 2024-01-11 | Outpatient (CLI) | payer MEDICAID, SELFPAY ==
[2024-01-11 15:46] LABS: Cholesterol 205 mg/dL (200); High Density Lipoprotein 58 mg/dL; Triglycerides 146 mg/dL; Very Low Density Lipoprotein 29 mg/dL (5-40)
[2024-01-11 16:22] LABS: Hemoglobin A1c 5.6 % (3.8-5.6)
== END | disposition home or self-care (01) ==
LOC: BIMLAB 13:52
PROVIDERS: PCP Internal Medicine; Referring Provider Internal Medicine; Visit Provider Internal Medicine
DX: Z13.6 Encounter for screening for cardiovascular disorders (principal); E66.01 Morbid (severe) obesity due to excess calories
CPT/HCPCS: 36415; 80061; 83036

== ENCOUNTER 2024-02-16 12:40 | Emergency (ER) | payer MEDICAID, SELFPAY ==
[2024-02-16 12:41] VITALS: BP 146/84; PULSE 72; RESP 18; TEMP 36.6; O2SAT 96; BMI 45.1
--- NOTE | 2024-02-16 13:24 | CT_ITS ---
STUDY: CT CHEST, ABDOMEN T PELVIS WITHOUT CONTRAST REASON FOR EXAM: Female, 48 years old. Pain after trauma RADIATION DOSAGE (If Supplied By Facility): CTDIvol = ( 32.82 ) mGy, DLP = ( 2725.77 ) mGycm TECHNIQUE: Transaxial imaging was performed without the administration of intravenous contrast material. Individualized dose optimization techniques were used for this CT. COMPARISON: No relevant priors. FINDINGS: CHEST The lungs are normal. There is no demonstrated pleural abnormality. Normal heart and pericardium. Normal mediastinum. Normal hilar regions. Normal unenhanced pulmonary arteries. Normal aorta arch and descending thoracic aorta. Normal osseous structures. ABDOMEN Normal liver. There is non-visualization of the gallbladder, which may be secondary to either contraction or a prior cholecystectomy. Normal spleen. Normal pancreas. Normal bilateral adrenal glands. Normal right kidney. Normal left kidney. Normal visualized stomach. Normal small intestine. There are multiple colonic diverticula consistent with diverticulosis. There are surgical clips in the region of the appendix consistent with a prior appendectomy. Normal abdominal aorta. Normal inferior vena cava. Normal retroperitoneum. Normal abdominal wall. Normal osseous structures. PELVIS Normal urinary bladder. Normal uterus. There is no pelvic fluid. There is no pelvic lymphadenopathy or mass lesion. Normal visualized pelvic arteries. CT/CT Chest, Abd, Pelvis WO Cont IMPRESSION: No acute pulmonary process No demonstrated rib, sternal, or thoracic vertebral body fracture No suspicious solid organ abnormality No free intraperitoneal fluid, air, or suspicious adenopathy Colonic diverticulosis, no CT evidence of acute diverticulitis Degenerative bony changes Electronically Signed: Hair Asencio MD at 14:44 EST ,
--- NOTE | 2024-02-16 13:24 | CT_ITS ---
STUDY: CT LUMBAR SPINE WITHOUT CONTRAST REASON FOR EXAM: Female, 48 years old. Back pain after trauma RADIATION DOSAGE (If Supplied By Facility): CTDIvol = ( 53.06 ) mGy, DLP = ( 1900.12 ) mGycm TECHNIQUE: The patient was scanned in a multi detector CT scanner. High resolution transaxial imaging was performed. Images were obtained from T12 to lower coccyx. Sagittal and coronal images were reconstructed. Individualized dose optimization techniques were used for this CT. COMPARISON: None FINDINGS: Normal lumbar lordosis. There is no substantial scoliosis. Normal vertebrae of the lumbar spine. There is no demonstrated compression deformity or fracture of the visualized lumbar vertebrae. L1-2: Normal endplates. Normal disc height and morphology. Normal bilateral facet joints. Normal central canal and bilateral lateral recesses. Normal bilateral intervertebral neural foramina. L2-3: Normal endplates. Normal disc height and morphology. Normal bilateral facet joints. Normal central canal and bilateral lateral recesses. Normal bilateral intervertebral neural foramina. L3-4: Normal endplates. Normal disc height and morphology. Normal bilateral facet joints. Normal central canal and bilateral lateral recesses. Normal bilateral intervertebral neural foramina. L4-5: Normal endplates. Normal disc height and morphology. Normal bilateral facet joints. Normal central canal and bilateral lateral recesses. Normal bilateral intervertebral neural foramina. L5-S1: Normal endplates. Normal disc height and morphology. Normal bilateral facet joints. Normal central canal and bilateral lateral recesses. Normal bilateral intervertebral neural foramina. Normal visualized paraspinous soft tissue structures. CT/Spine Lumbar without Contrast IMPRESSION: Normal unenhanced CT examination of the lumbar spine. Electronically Signed: Hair Asencio MD at 14:44 EST ,
--- NOTE | 2024-02-16 13:24 | EDS_ITS ---
HPI History of Present Illness Chief Complaint: Back Informant: patient Narrative Narrative: 48-year-old female presenting to the emergency room with low back pain. Patient states that she was walking yesterday when she slipped on some acorns. She landed in a sitting position. She notes pain in her low back in her sacral region. She denies any radicular symptoms. She denies any fevers or rashes. She states that he was very painful for her to any type of movement. She has had prior lumbar surgery (question laminectomy). PFSH [facility] Medical History Migraine Screening for cardiovascular condition Morbid obesity Hypersomnolence Dermatitis Breast cyst Schizoaffective disorder, bipolar type History of herniated intervertebral disc Wears glasses Schizophrenia Bipolar disorder Alcohol use Easy bruising Hepatitis Injury of back Peptic ulcer History of IBS Smoker MARIA INES (obstructive sleep apnea) Shortness of breath on exertion Chronic cough Leg cramps History of stress test Hx of degenerative disc disease Herniated cervical disc Lumbar radicular pain COPD (chronic obstructive pulmonary disease) Chronic pain Ulnar nerve laceration Carpal tunnel syndrome COPD exacerbation Polysubstance abuse Tobacco use (Unknown) Asthma Anxiety Hepatitis C Home Medications ?Medication ?Instructions ?Recorded ?Last Taken ?Type acetaminophen 500 mg tablet 1,000 mg PO Q8H PRN Pain 07/05/21 06/26/23 History albuterol sulfate 90 mcg/actuation 2 puff inhalation Q4H PRN PRN 07/05/21 06/26/23 Rx aerosol inhaler (Ventolin HFA) Wheezing ##1 ibuprofen 800 mg tablet 800 mg PO TID PRN pain #30 tabs 09/10/21 06/26/23 Rx tkrggngw-qpcr-ryu-iron 18 mg-folic 1 tab PO DAILY SUPPLEMENT 06/26/23 06/26/23 History 240 mcg-vit K 120 mcg-herbal tablet ([employer]) ipratropium 0.5 mg-albuterol 3 mg 3 ml inhalation Q4H.RT #180 mL 06/27/23 Unknown Rx (2.5 mg base)/3 mL nebulization soln nebulizer and compressor #1 ea 06/27/23 Unknown Rx albuterol sulfate 2.5 mg/3 mL 2.5 mg (3 mL) inhalation Q4H PRN 12/03/23 Unknown Rx (0.083 %) solution for nebulization #25 vials albuterol sulfate 90 mcg/actuation 1 - 2 puff inhalation Q4H PRN PRN 01/11/24 Unknown Rx aerosol inhaler (Ventolin HFA) Wheezing ##1 fluticasone fur. 100 mcg-umeclid 1 inh inhalation Q24H #60 ea 01/11/24 Unknown Rx 62.5 mcg-vilant 25 mcg inhalat.powder (Trelegy Ellipta) sumatriptan succinate 25 mg tablet See Rx Instructions PO .COMPLEX 01/11/24 Unknown Rx (Imitrex) #10 tabs topiramate 25 mg tablet 25 mg PO BID #60 tabs 01/11/24 Unknown Rx ondansetron 4 mg disintegrating 4 mg PO Q8H PRN PRN Nausea #30 tabs 01/12/24 Unknown Rx tablet clonazepam 1 mg tablet 1 mg PO DAILY PRN anxiety 10 days 02/01/24 Unknown Rx #10 tabs cariprazine 3 mg capsule 3 mg PO DAILY #30 caps 02/11/24 Unknown Rx quetiapine 25 mg tablet 25 mg PO QHS sleep/mood #30 tabs 02/11/24 Unknown Rx cyclobenzaprine 10 mg tablet 10 mg PO TID PRN Muscle Spasm #15 02/16/24 Unknown Rx TABLETS Allergy/AdvReac Type Severity Reaction Status Date / Time hydrocodone Allergy Intermediate Hives Verified 02/16/24 12:44 Family History Mother Anemia Asthma Arthritis Emotional disorder Bleeding disorder COPD (chronic obstructive pulmonary disease) Father Myocardial infarction Prostate cancer Surgical History History of back surgery History of lumbar laminectomy History of back surgery History of decompression of ulnar nerve History of cholecystectomy History of appendectomy History of tubal ligation Social History adopted: No household members: significant other housing: house number of children: 3 current occupational status: employed current occupation: [employer] pets and animals: Yes pets and animals: cat(s) and dog(s) sexually active: Yes Smoking Status: Current every day smoker tobacco type: cigarettes and e- cigarettes Tobacco: How many years used: 20 alcohol intake: never substance use type: does not use caffeine: Yes (2) Type: carbonated beverages and coffee what type of physical activity do you participate in: none do you feel safe at home: Yes ROS ROS ED Constitutional Constitutional ED: Denies chills, fever(s) or weight loss Eyes Eyes: Denies change in vision or diplopia ENT ENT ED: Denies ear pain, rhinorrhea or sore throat Cardiovascular Cardiovascular: Denies chest pain, orthopnea, palpitations or racing heartbeat Respiratory/Chest Respiratory/Chest: Denies cough, dyspnea or orthopnea Gastrointestinal Gastrointestinal: Denies abdominal pain, diarrhea, nausea or vomiting Genitourinary Genitourinary ED: Denies dysuria, hematuria or urinary frequency Musculoskeletal Musculoskeletal: Reports back pain; Denies arthralgias or myalgias Integumentary Denies abscess or rash Neurologic Neurologic: Denies headache(s) or weakness Psychiatric Psychiatric: Denies anxiety, depression, suicidal ideation or suicidal thoughts Endocrine Endocrinology: Denies polydipsia, polyphagia or polyuria Allergic/Immunologic Allergic/Immunologic ED: Denies mouth swelling, tongue swelling or urticaria EXAM Physical Exam Const Vital Signs: 02/16/24 12:41 Temperature 97.8 F Temperature Source Oral Pulse Rate 72 Respiratory Rate 18 Blood Pressure 146/84 H Blood Pressure Mean 104 Pulse Ox 96 Oxygen Delivery Method Room Air Positive well nourished, well developed and obese General Appearance ED: well developed and NAD Nutritional Appearance: obese HEENT Reports normocephalic, head/scalp atraumatic and moist mucous membranes Eyes PERRL and EOMs intact bilaterally Neck no lymphadenopathy, supple and no JVD Resp normal respiratory effort and clear to auscultation bilaterally Cardio regular rate, regular rhythm and no murmurs GI normal to inspection, nondistended, normoactive bowel sounds and non-tender Palpation: soft Back/Spine no CVA tenderness Back/Spine Narrative: There is a healed midline lumbar incision. There is no rashes soft tissue swelling. No overlying erythema. Tender to palpation particularly on the left lateral lumbar region. Mild sacral tenderness. Extremity normal to inspection General Extremety ED: Negative for edema General Extremity: Negative for edema Neuro oriented x3 and CN's II-XII intact bilaterally Sensorium / Orientation: alert Motor Exam: strength 5/5 throughout Deep Tendon Reflexes: Rt Patellar (L4): 2+, Lt Patellar (L4): 2+, Rt Ankle (S1): 2+ and Lt Ankle (S1): 2+ Deep Tendon Reflexes Back: Rt Patellar (L4): 2+, Lt Patellar (L4): 2+, Rt Ankle (S1): 2+ and Lt Ankle (S1): 2+ Psych mental status grossly normal Mood & Affect: Negative for depressed or tearful Skin no rashes or lesions noted and no wounds MDM MDM MDM Narrative Medical decision making narrative: Differential diagnosis includes but not limited to fracture muscular strain/spasm retroperitoneal hematoma CT of the lumbar spine thoracic spine pelvis was obtained. This does not demonstrate acute fracture. I ordered Toradol and Norflex for the patient. With discussion of the images and the patient she tells me that she knows that Toradol and Norflex will do a thing for her that she needs oxycodone because that is with a typically give her. She states the pain management doctor but soundly who provides her with meloxicam and she tells me that he knows that oxycodone is what should work for her. She does not have a reason for why he does not write her for oxycodone. Clinically this appears to be more muscular spasm based on the CTs that are negative for fracture. I can write for some Flexeril. Would recommend continuation of the anti-inflammatory. History & Record Review Discussion w/independent historian: Patient Radiography Diagnostic Testing: Clinical Impression(s) from Imaging Studies Chest/Abdomen/Pelvis CT 02/16/24 13:24 IMPRESSION: No acute pulmonary process No demonstrated rib, sternal, or thoracic vertebral body fracture No suspicious solid organ abnormality No free intraperitoneal fluid, air, or suspicious adenopathy Colonic diverticulosis, no CT evidence of acute diverticulitis Degenerative bony changes Electronically Signed: Hair Asencio MD at 14:44 EST , Lumbar Spine CT 02/16/24 13:24 IMPRESSION: Normal unenhanced CT examination of the lumbar spine. Electronically Signed: Hair Asencio MD at 14:44 EST , Discharge Plan Triage Chief Complaint: Back ED Provider: David Espinoza Dx/Rx/DC Orders Clinical Impression: Fall, Acute lumbar myofascial strain Instructions: ED Back Sprain/Strain, ED Back Contusion Prescriptions: New cyclobenzaprine 10 mg tablet 10 mg PO TID PRN (Reason: Muscle Spasm) Qty: 15 0RF No Action topiramate 25 mg tablet 25 mg PO BID Qty: 60 1RF Rx Instructions: Take QHS x 2 weeks then increase to BID sumatriptan succinate [Imitrex] 25 mg tablet See Rx Instructions PO .COMPLEX Qty: 10 1RF Rx Instructions: take 1 tab at onset of headache; if no relief may repeat 1 tab after at least 2 hrs; max = 4 tabs/24 hr PO albuterol sulfate [Ventolin HFA] 90 mcg/actuation HFA aerosol inhaler 1 - 2 puff inhalation Q4H PRN PRN (Reason: Wheezing) Qty: 1 0RF Trelegy Ellipta 100-62.5-25 mcg blister with device 1 inh inhalation Q24H Qty: 60 3RF cariprazine 3 mg capsule 3 mg PO DAILY Qty: 30 2RF quetiapine 25 mg tablet 25 mg PO QHS Qty: 30 2RF acetaminophen 500 mg tablet 1,000 mg PO Q8H PRN (Reason: Pain) albuterol sulfate [Ventolin HFA] 1 INHALER inhaler 2 puff inhalation Q4H PRN PRN (Reason: Wheezing) Qty: 1 0RF ibuprofen 800 mg tablet 800 mg PO TID PRN (Reason: pain) Qty: 30 0RF albuterol sulfate 2.5 mg /3 mL (0.083 %) solution for nebulization 2.5 mg inhalation Q4H PRN Qty: 25 0RF Rx Instructions: Use q4 hours and PRN for wheezing [employer] 18 mg iron- 240 mcg-120 mcg tablet 1 tab PO DAILY (DME) nebulizer and compressor Device See Rx Instructions .Route Qty: 1 0RF Rx Instructions: As directed ipratropium-albuterol 0.5 mg-3 mg(2.5 mg base)/3 mL Solution For Nebulization 3 ml inhalation Q4H.RT Qty: 180 0RF ondansetron 4 mg tablet,disintegrating 4 mg PO Q8H PRN PRN (Reason: Nausea) Qty: 30 0RF clonazepam 1 mg tablet 1 mg PO DAILY PRN (Reason: anxiety) 10 Days Qty: 10 1RF Primary Care Provider: Juve Brown Referrals: Josette Medeiros MD [Med Staff - Active Staff] - 1 Week if not improving Juve Brown MD [Primary Care Provider] - As Needed Print Language: Divehi Disposition Disposition: Home, Self Care
[2024-02-16] MEDS: Orphenadrine 60 MG/2 ML Ampul IM (14:33)
[2024-02-16] MEDS: Ketorolac 60 MG/2 ML Vial IM (14:33)
== END 2024-02-16 15:38 | disposition home or self-care (01) ==
PROVIDERS: Emergency Provider Emergency Medicine; PCP Internal Medicine; Visit Provider Emergency Medicine
DX: S39.012A Strain of muscle, fascia and tendon of lower back, initial encounter (principal); J44.9 Chronic obstructive pulmonary disease, unspecified; E66.01 Morbid (severe) obesity due to excess calories; Z68.42 Body mass index [BMI] 45.0-49.9, adult; W01.0XXA Fall on same level from slipping, tripping and stumbling without subsequent striking against object, initial encounter; Y93.01 Activity, walking, marching and hiking; Y99.8 Other external cause status; F17.210 Nicotine dependence, cigarettes, uncomplicated; F17.290 Nicotine dependence, other tobacco product, uncomplicated; Z79.51 Long term (current) use of inhaled steroids
CPT/HCPCS: 71250; 72131; 74176; 96372; 99282

== ENCOUNTER → 2024-02-25 | Outpatient (CLI) | payer MEDICAID, SELFPAY | END | disposition home or self-care (01) | LOC: SL 06-09 15:58 | PROVIDERS: PCP Internal Medicine; Referring Provider Internal Medicine; Visit Provider Internal Medicine | DX: G47.10 Hypersomnia, unspecified (principal) | CPT/HCPCS: 95806 ==

== ENCOUNTER 2024-04-02 19:45 | Emergency (ER) | payer MEDICAID, SELFPAY ==
[2024-04-02 19:46] VITALS: BP 155/105; PULSE 91; RESP 18; TEMP 35.8; O2SAT 96
--- NOTE | 2024-04-02 19:53 | EDS_ITS ---
HPI History of Present Illness Chief Complaint: Back [facility] Medical History Migraine Screening for cardiovascular condition Morbid obesity Hypersomnolence Dermatitis Breast cyst Schizoaffective disorder, bipolar type History of herniated intervertebral disc Wears glasses Schizophrenia Bipolar disorder Alcohol use Easy bruising Hepatitis Injury of back Peptic ulcer History of IBS Smoker MARIA INES (obstructive sleep apnea) Shortness of breath on exertion Chronic cough Leg cramps History of stress test Hx of degenerative disc disease Herniated cervical disc Lumbar radicular pain COPD (chronic obstructive pulmonary disease) Chronic pain Ulnar nerve laceration Carpal tunnel syndrome COPD exacerbation Polysubstance abuse Tobacco use (Unknown) Asthma Anxiety Hepatitis C Home Medications ?Medication ?Instructions ?Recorded ?Last Taken ?Type acetaminophen 500 mg tablet 1,000 mg PO Q8H PRN Pain 07/05/21 06/26/23 History ibuprofen 800 mg tablet 800 mg PO TID PRN pain #30 tabs 09/10/21 06/26/23 Rx olcysota-xnwo-xma-iron 18 mg-folic 1 tab PO DAILY SUPPLEMENT 06/26/23 06/26/23 History 240 mcg-vit K 120 mcg-herbal tablet ([employer]) ipratropium 0.5 mg-albuterol 3 mg 3 ml inhalation Q4H.RT #180 mL 06/27/23 Unknown Rx (2.5 mg base)/3 mL nebulization soln nebulizer and compressor #1 ea 06/27/23 Unknown Rx albuterol sulfate 2.5 mg/3 mL 2.5 mg (3 mL) inhalation Q4H PRN 12/03/23 Unknown Rx (0.083 %) solution for nebulization #25 vials albuterol sulfate 90 mcg/actuation 1 - 2 puff inhalation Q4H PRN PRN 01/11/24 Unknown Rx aerosol inhaler (Ventolin HFA) Wheezing ##1 fluticasone fur. 100 mcg-umeclid 1 inh inhalation Q24H #60 ea 01/11/24 Unknown Rx 62.5 mcg-vilant 25 mcg inhalat.powder (Trelegy Ellipta) topiramate 25 mg tablet 25 mg PO BID #60 tabs 01/11/24 Unknown Rx ondansetron 4 mg disintegrating 4 mg PO Q8H PRN PRN Nausea #30 tabs 01/12/24 Unknown Rx tablet cariprazine 3 mg capsule 3 mg PO DAILY #30 caps 02/11/24 Unknown Rx quetiapine 25 mg tablet 25 mg PO QHS sleep/mood #30 tabs 02/11/24 Unknown Rx clonazepam 1 mg tablet 1 mg PO DAILY PRN anxiety 15 days 03/24/24 Unknown Rx #15 tabs sumatriptan succinate 25 mg tablet See Rx Instructions PO .COMPLEX 03/30/24 Unknown Rx (Imitrex) #10 tabs oxycodone 5 mg tablet 5 mg PO Q6H PRN pain 3 days #12 04/02/24 Unknown Rx tabs prednisone 50 mg tablet 50 mg PO DAILY 5 days #5 tabs 04/02/24 Unknown Rx Allergy/AdvReac Type Severity Reaction Status Date / Time hydrocodone Allergy Intermediate Hives Verified 04/02/24 19:49 Family History Mother Anemia Asthma Arthritis Emotional disorder Bleeding disorder COPD (chronic obstructive pulmonary disease) Father Myocardial infarction Prostate cancer Surgical History History of back surgery History of lumbar laminectomy History of back surgery History of decompression of ulnar nerve History of cholecystectomy History of appendectomy History of tubal ligation Social History adopted: No household members: significant other housing: house number of children: 3 current occupational status: employed current occupation: [employer] pets and animals: Yes pets and animals: cat(s) and dog(s) sexually active: Yes Smoking Status: Current every day smoker tobacco type: cigarettes and e- cigarettes Tobacco: How many years used: 20 alcohol intake: never substance use type: does not use caffeine: Yes (2) Type: carbonated beverages and coffee what type of physical activity do you participate in: none do you feel safe at home: Yes EXAM Physical Exam Const Vital Signs: 04/02/24 19:46 Temperature 96.5 F L Temperature Source Temporal Pulse Rate 91 Respiratory Rate 18 Blood Pressure 155/105 H Blood Pressure Mean 121 Pulse Ox 96 MDM MDM MDM Narrative Medical decision making narrative: HISTORY OF PRESENT ILLNESS: 48-year-old female presents with back pain. 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 Denies any falls or other trauma. Denies any car accidents. Patient denies any saddle anesthesia, urinary tension, bowel or bladder incontinence, lower extremity weakness, fever or IV drug use, no recent spinal manipulation or surgery, no recent urinary catheterization. REVIEW OF SYSTEMS: All other systems reviewed and are negative except as noted in the history of present illness. At least 10 review of systems reviewed and are negative except as noted in history of present illness. PHYSICAL EXAM: Nursing triage notes reviewed, Vital signs reviewed Constitutional: please see mdm HENT: MMM Eyes: Pupils equal round and reactive to light, Extraocular muscles intact Neck: No stridor, no JVD, full neck ROM Lungs: Clear to auscultation, No wheezing or rales. No increased work of breathing, no conversational dyspnea, no accessory muscle use, no nasal flaring. No respiratory distress noted Heart: Regular rate and rhythm, No murmurs, No rubs and No gallops, 2+ distal pulses (radial, femoral, posterior tibial) in all extremities Abdomen: Soft, there is no tenderness, rigidity, rebound or guarding, no obvious peritoneal signs, no palpable pulsatile abdominal masses, no auscultated abdominal bruit : No CVAT Extremities: No edema Back: No midline step-offs or deformities. The right lower lumbar spine TTP and hypertonicity Neuro: Intact sensation L1-S1 dermatomal distributions. Intact 5/5 strength in hip flexion (T12-L3). Knee extension (L2-L4). Ankle dorsiflexion (L4-L5). Ankle plantar flexion (S1). Great toe extension (L5). 2+ patellar and Achilles DTRs. Skin: No rash or lesions noted, old surgical scar noted clean dry intact. MEDICAL DECISION MAKING: Chief Complaint: Back pain External records reviewed: Imaging studies reviewed: CT scan lumbar spine from January 2024 shows a normal unenhanced CT examination of the spine Factors affecting care: COPD, obesity, history of low back pain, anxiety and depression, history of laminectomy, degenerative disc disease Social determinants of health: No current IV drug use History obtained from others: none Consults: none ALL IMAGES (IF OBTAINED) HAVE BEEN PERSONALLY REVIEWED AND INTERPRETED BY MYSELF. MDM Narrative: Patient was initially hemodynamically stable, afebrile and nontoxic-appearing. Exam without midline step-offs deformities. Noted right lower lumbar spine TTP and hypertonicity. No focal lower extremity neurologic deficits. I considered the following differential diagnosis: Musculoskeletal back pain, space-occupying lesion of the spinal (epidural abscess, epidural hematoma), cauda equina, conus medullaris, fracture dislocation, AAA, nephrolithiasis, pyelonephritis, aortic dissection The patient presented complaining of back pain. There was no history of recent fall or trauma. There was no evidence to support genitourinary etiology. There is also no evidence to suggest vascular pathology such as AAA dissection. No fevers or other evidence to suspect infectious processes, abscess, osteomyelitis etc. The patient?s neurological exam is normal with normal motor and sensory. There is no saddle paresthesias reported and no bowel or bladder incontinence or retention. I suspect the pain is mechanical in nature. Clinical suspicion, plan of care and management was discussed with the patient. The patient was instructed to follow up with their health care provider. The patient was also instructed to return if the pain worsened, changed, or developed weakness or bowel or bladder trouble. The patient agreed with plan. I completed a structured, evidence-based clinical evaluation to screen for acute non-traumatic spinal emergencies. The patient has a normal detailed neurologic exam and red flag historical factors were negative. The evidence indicates that the patient is very low risk for an acute spinal emergency and this is consistent with my clinical intuition. The risk of further workup is higher than the likelihood of the patient having a spinal epidural abscess or other dangerous emergency spinal condition. It is, therefore, in the patient?s best interest not to do additional emergent testing at this time. Shared Decision-Making I have discussed with the patient my clinical impression and the result of an evidence-based clinical evaluation to screen for spinal epidural abscess and other spinal emergencies, as well as the risk of further testing and hospitalization. The evidence shows that the risk for an acute spinal emergency is less than 1%. Although the risk of an acute spinal emergency has not been completely eliminated, the risks of further testing likely exceed any potential benefit, and the patient agrees with not pursuing further emergent evaluation for causes of back pain at this time. The patient and/or family, caregivers express understanding. The patient and/or family, caregivers agrees with the plan. Total critical care time today provided was at least 0 minutes. This excludes separately billable procedures. Critical care time (if documented) is secondary to the patient having high probability of clinically significant/life threatening deterioration in the patient's condition which required my urgent intervention. Impression: 1. Acute on chronic low back pain 2. Lumbar radiculopathy Disposition: Discharge home Nathan Martinez DO Discharge Plan Triage Chief Complaint: Back ED Provider: Nathan Martinez Dx/Rx/DC Orders Clinical Impression: Lumbar radiculopathy Instructions: Back Safety: Lifting Prescriptions: New oxycodone 5 mg tablet 5 mg PO Q6H PRN (Reason: pain) 3 Days Qty: 12 0RF prednisone 50 mg tablet 50 mg PO DAILY 5 Days Qty: 5 0RF No Action topiramate 25 mg tablet 25 mg PO BID Qty: 60 1RF Rx Instructions: Take QHS x 2 weeks then increase to BID albuterol sulfate [Ventolin HFA] 90 mcg/actuation HFA aerosol inhaler 1 - 2 puff inhalation Q4H PRN PRN (Reason: Wheezing) Qty: 1 0RF Trelegy Ellipta 100-62.5-25 mcg blister with device 1 inh inhalation Q24H Qty: 60 3RF cariprazine 3 mg capsule 3 mg PO DAILY Qty: 30 2RF quetiapine 25 mg tablet 25 mg PO QHS Qty: 30 2RF clonazepam 1 mg tablet 1 mg PO DAILY PRN (Reason: anxiety) 15 Days Qty: 15 2RF acetaminophen 500 mg tablet 1,000 mg PO Q8H PRN (Reason: Pain) ibuprofen 800 mg tablet 800 mg PO TID PRN (Reason: pain) Qty: 30 0RF albuterol sulfate 2.5 mg /3 mL (0.083 %) solution for nebulization 2.5 mg inhalation Q4H PRN Qty: 25 0RF Rx Instructions: Use q4 hours and PRN for wheezing [employer] 18 mg iron- 240 mcg-120 mcg tablet 1 tab PO DAILY (DME) nebulizer and compressor Device See Rx Instructions .Route Qty: 1 0RF Rx Instructions: As directed ipratropium-albuterol 0.5 mg-3 mg(2.5 mg base)/3 mL Solution For Nebulization 3 ml inhalation Q4H.RT Qty: 180 0RF ondansetron 4 mg tablet,disintegrating 4 mg PO Q8H PRN PRN (Reason: Nausea) Qty: 30 0RF sumatriptan succinate [Imitrex] 25 mg tablet See Rx Instructions PO .COMPLEX Qty: 10 1RF Rx Instructions: take 1 tab at onset of headache; if no relief may repeat 1 tab after at least 2 hrs; max = 4 tabs/24 hr PO Stand Alone Forms: ED Work / School Excuse Primary Care Provider: Juve Brown Referrals: Juve Brown MD [Primary Care Provider] - Activity Restrictions/Additional Instructions: Thank you for trusting us with your care today! Please take Tylenol (2 pills, 650 mg), ibuprofen (2 pills, 400 mg) every 6 hours as needed for pain and fever control. please take prednisone as prescribed Please take oxycodone for breakthrough pain if the above regimen is not controlling her symptoms. Please return to the emergency department if your symptoms change or worsen. Specifically develop bowel or bladder incontinence, urinary retention, inability to move or feel your legs. Please follow with your primary care physician for further outpatient evaluation and management. Print Language: Kyrgyz Disposition Disposition: Home, Self Care
[2024-04-02 19:59] VITALS: BMI 46.5
[2024-04-02] MEDS: predniSONE 20 MG Tablet 40 MG PO (20:12)
[2024-04-02] MEDS: Lidocaine 5% Patch 1 PATCH TOPICAL (20:12)
[2024-04-02] MEDS: oxyCODONE 5 MG Tablet PO (20:12)
[2024-04-02 20:33] VITALS: BP 145/95; PULSE 85; RESP 18; TEMP 36.7; O2SAT 98
== END 2024-04-02 20:39 | disposition home or self-care (01) ==
LOC: ED 20:28
PROVIDERS: Emergency Provider Emergency Medicine; PCP Internal Medicine; Visit Provider Emergency Medicine
DX: M54.16 Radiculopathy, lumbar region (principal); G89.29 Other chronic pain; F17.210 Nicotine dependence, cigarettes, uncomplicated; F17.290 Nicotine dependence, other tobacco product, uncomplicated
CPT/HCPCS: 99283

== ENCOUNTER 2024-04-08 02:46 | Emergency (ER) | payer MEDICAID, SELFPAY ==
[2024-04-08 02:47] VITALS: BP 128/90; PULSE 68; RESP 16; TEMP 36.6; O2SAT 94; BMI 45.8
--- NOTE | 2024-04-08 02:57 | CT_ITS ---
EXAM: CT ABDOMEN AND PELVIS WITH INTRAVENOUS CONTRAST CLINICAL INDICATION: Nausea, vomiting, diarrhea TECHNIQUE: Helically acquired images were obtained of the abdomen and pelvis with intravenous contrast. This CT exam was performed using one or more of the following dose reduction techniques: automated exposure control, adjustment of the mA and/or kV according to patient size, and/or use of iterative reconstruction technique. CONTRAST: IV 100mL Isovue-300 RADIATION DOSE: Total DLP: 1265.56 mGy-cm. COMPARISON: Nonenhanced abdomen pelvis CT of 02/16/2024. FINDINGS: LOWER THORAX: There is minimal thickening of the distal esophageal wall due to hiatal hernia and/or very mild reflux esophagitis. Visualized lung bases are clear. No significant pericardial effusion. ABDOMEN: LIVER: Moderate fatty infiltration of the liver. Right hepatic lobe measures 22 cm in cephalocaudal dimension. Hepatic veins and portal veins enhance normally. GALLBLADDER AND BILE DUCTS: Absent gallbladder. Common bile duct is normal in caliber for a postcholecystectomy patient. No calcified common duct stone. PANCREAS: Unremarkable. No focal cystic or solid mass. SPLEEN: Unremarkable. Normal size without focal cystic or solid mass. ADRENALS: Unremarkable. No nodules. KIDNEYS AND URETERS: Unremarkable. Normal renal size and position. No hydronephrosis. No renal or obstructing ureteral stone. STOMACH AND BOWEL: No gastric mural thickening, periduodenal inflammatory changes or distended small bowel loops. Numerous small bowel loops are filled with fluid with air-fluid levels and trace of adjacent mesenteric haziness. Air-fluid levels are also noted throughout the colon, and the rectum is filled with fluid/liquid stool. No colonic mural thickening is identified. PELVIS: APPENDIX: Partially distended urinary bladder is unremarkable. Previous appendectomy. BLADDER: Unremarkable. REPRODUCTIVE: Unremarkable as visualized. No mass. ABDOMEN and PELVIS: INTRAPERITONEAL SPACE: Unremarkable. No ascites or other fluid collection. No free air. BONES/JOINTS: Stable degenerative narrowing of the T11/12 disc space. No acute osseous abnormality. No suspicious lytic or blastic abnormality. SOFT TISSUES: Unremarkable. No discrete abdominal or pelvic wall hernia. VASCULATURE: Normal caliber abdominal aorta. SMA and AASHISH enhance normally. LYMPH NODES: Unremarkable. No enlarged lymph nodes. CT/Abdomen/Pelvis W IV Cont ONLY IMPRESSION: 1. Findings of a gastroenteritis with diarrhea. 2. No findings of small bowel obstruction. 3. Enlarged fatty liver. 4. Previous appendectomy. 5. Minimal distal esophageal mural thickening due to hiatal hernia and/or very mild reflux esophagitis. Electronically Signed: Stephane Tovar MD at 4:17 EST ,
--- NOTE | 2024-04-08 02:58 | EDS_ITS ---
HPI HPI - GI History of Present Illness Chief Complaint: Nausea/Vomiting/Diarrhea Nausea/Vomiting/Emesis GI Symptom: Positive for Nausea and Vomiting Diarrhea/Melena/Hematochezia GI Symptom: Positive for Diarrhea Stool Quality: Positive for Watery Narrative Narrative: 48-year-old female past medical history of COPD presents via EMS with nausea, vomiting, and diarrhea that began at 8 PM yesterday, approximately 7 hours ago. She has past abdominal surgical history of cholecystectomy and appendectomy. Last menstrual period was a few months ago but she may be perimenopausal. She relates history that she started having nausea and vomiting and has vomited multiple times. She also started having loose, liquid stool, at least 4-5 episo nafisa in the last 7 hours. 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 She denies any exacerbating or alleviating factors. No fevers or chills. Denies drug or alcohol use. [facility] Medical History Migraine Screening for cardiovascular condition Morbid obesity Hypersomnolence Dermatitis Breast cyst Schizoaffective disorder, bipolar type History of herniated intervertebral disc Wears glasses Schizophrenia Bipolar disorder Alcohol use Easy bruising Hepatitis Injury of back Peptic ulcer History of IBS Smoker MARIA INES (obstructive sleep apnea) Shortness of breath on exertion Chronic cough Leg cramps History of stress test Hx of degenerative disc disease Herniated cervical disc Lumbar radicular pain COPD (chronic obstructive pulmonary disease) Chronic pain Ulnar nerve laceration Carpal tunnel syndrome COPD exacerbation Polysubstance abuse Tobacco use (Unknown) Asthma Anxiety Hepatitis C Home Medications ?Medication ?Instructions ?Recorded ?Last Taken ?Type acetaminophen 500 mg tablet 1,000 mg PO Q8H PRN Pain 07/05/21 06/26/23 History ibuprofen 800 mg tablet 800 mg PO TID PRN pain #30 tabs 09/10/21 06/26/23 Rx cstyrhno-kczv-ygi-iron 18 mg-folic 1 tab PO DAILY SUPPLEMENT 06/26/23 06/26/23 History 240 mcg-vit K 120 mcg-herbal tablet ([employer]) ipratropium 0.5 mg-albuterol 3 mg 3 ml inhalation Q4H.RT #180 mL 06/27/23 Unknown Rx (2.5 mg base)/3 mL nebulization soln nebulizer and compressor #1 ea 06/27/23 Unknown Rx albuterol sulfate 2.5 mg/3 mL 2.5 mg (3 mL) inhalation Q4H PRN 12/03/23 Unknown Rx (0.083 %) solution for nebulization #25 vials albuterol sulfate 90 mcg/actuation 1 - 2 puff inhalation Q4H PRN PRN 01/11/24 Unknown Rx aerosol inhaler (Ventolin HFA) Wheezing ##1 fluticasone fur. 100 mcg-umeclid 1 inh inhalation Q24H #60 ea 01/11/24 Unknown Rx 62.5 mcg-vilant 25 mcg inhalat.powder (Trelegy Ellipta) ondansetron 4 mg disintegrating 4 mg PO Q8H PRN PRN Nausea #30 tabs 01/12/24 Unknown Rx tablet cariprazine 3 mg capsule 3 mg PO DAILY #30 caps 02/11/24 Unknown Rx quetiapine 25 mg tablet 25 mg PO QHS sleep/mood #30 tabs 02/11/24 Unknown Rx clonazepam 1 mg tablet 1 mg PO DAILY PRN anxiety 15 days 03/24/24 Unknown Rx #15 tabs sumatriptan succinate 25 mg tablet See Rx Instructions PO .COMPLEX 03/30/24 Unknown Rx (Imitrex) #10 tabs oxycodone 5 mg tablet 5 mg PO Q6H PRN pain 3 days #12 04/02/24 Unknown Rx tabs prednisone 50 mg tablet 50 mg PO DAILY 5 days #5 tabs 04/02/24 Unknown Rx topiramate 25 mg tablet 25 mg PO BID #60 tabs 04/04/24 Unknown Rx promethazine 25 mg tablet 25 mg PO Q6H PRN nausea and 04/08/24 Unknown Rx vomiting #20 tabs Allergy/AdvReac Type Severity Reaction Status Date / Time hydrocodone Allergy Intermediate Hives Verified 04/08/24 02:52 Family History Mother Anemia Asthma Arthritis Emotional disorder Bleeding disorder COPD (chronic obstructive pulmonary disease) Father Myocardial infarction Prostate cancer Surgical History History of back surgery History of lumbar laminectomy History of back surgery History of decompression of ulnar nerve History of cholecystectomy History of appendectomy History of tubal ligation Social History adopted: No household members: significant other housing: house number of children: 3 current occupational status: employed current occupation: [employer] pets and animals: Yes pets and animals: cat(s) and dog(s) sexually active: Yes Smoking Status: Current every day smoker tobacco type: cigarettes and e-ciga rettes Tobacco: How many years used: 20 alcohol intake: never substance use type: does not use caffeine: Yes (2) Type: carbonated beverages and coffee what type of physical activity do you participate in: none do you feel safe at home: Yes ROS ROS ED ROS Narrative Constitutional: No fever, no chills. Cardiovascular: No chest pain. No palpitations. No pedal edema. Respiratory: No cough, no shortness of breath. Abdominal: Positive diffuse abdominal pain. Multiple episodes of nausea and v omiting. 4-5 episodes of diarrhea. Genitourinary: No dysuria. No hematuria. Musculoskeletal: No myalgias. No arthralgias. Neurologic: No headaches. No dizziness. No lightheadedness. Skin: No rash. No change in color. EXAM Physical Exam Narrative Exam Narrative: Afebrile. Vital signs noted. HEENT: Normocephalic. Atraumatic. PERRL, EOMI. Neck soft and supple. No point tenderness or step off. Cardiovascular: Regular rate and rhythm. No murmurs, rubs, or gallops appreciated. Respiratory: No tachypnea. Lungs clear to auscultation bilaterally except occasional rhonchi/coarse breath sounds. Gastrointestinal: Abdomen soft, mild palpation with normoactive bowel sounds. No rebound or guarding. Neurological: Awake. Alert. Nonfocal, nonlateralizing. Skin: No rash. Normal color. No pallor. Musculoskeletal: No pedal edema. Full range of motion extremities. Const Vital Signs: 04/08/24 02:47 Temperature 97.9 F Temperature Source Temporal Pulse Rate 68 Respiratory Rate 16 Blood Pressure 128/90 H Blood Pressure Mean 102 Pulse Ox 94 Oxygen Delivery Method Room Air MDM MDM MDM Narrative Medical decision making narrative: Differential diagnosis does include but not limited to gastroenteritis versus partial small bowel obstruction versus pancreatitis. Comprehensive workup was pursued. I do feel that she requires imaging of the abdomen given her previous abdominal surgeries. I doubt dehydration. She will be administered Zofran intravenously. She was already asking for ice chips. I reviewed her laboratory work and she has a leukocytosis of 18.7 which may be demargination from her vomiting. Hemoglobin normal at 14.7 with hematocrit 45.3 and platelet count normal at 368. Sodium slightly low 134 which think is nonspecific, potassium normal at 3.7, BUN of 16 and creatinine 0.84, no profound dehydration. Glucose elevated at 169 with a normal anion gap of 10. While AST is elevated at 78 and ALT 150, when compared to prior labs she has a chronic elevation of her LFTs. Lipase is normal at 28 so I doubt pancreatitis. Additionally, she has had a cholecystectomy so I doubt cholecystitis. Serum test is negative. I reviewed the radiology report of the CT of the abdomen and pelvis with IV cont rast. It is consistent with gastroenteritis, but no evidence of obstruction. At this point in time, I feel she can be discharged to follow-up with her primary care provider. She was written a prescription for Phenergan tablets. She declined suppositories. Return instructions to the emergency department reviewed. Disposition is discharged home in stable condition. History & Record Review Discussion w/independent historian: Patient Additional record(s) reviewed:: Prior labs Lab Data Attestation: I reviewed the patient's lab results. Labs: Laboratory Results - last 24 hr 04/08/24 03:03 WBC 18.7 H RBC 5.06 Hgb 14.7 Hct 45.3 MCV 89.5 MCH 29.1 MCHC 32.5 RDW Std Deviation 42.5 RDW Coeff of Bianca 13.1 Plt Count 368 MPV 9.4 Immature Gran % (Auto) 0.600 Neut % (Auto) 93.9 H Lymph % (Auto) 3.2 L Marinette % (Auto) 1.6 Eos % (Auto) 0.4 Baso % (Auto) 0.3 Absolute Neuts (auto) 17.6 H Absolute Lymphs (auto) 0.59 L Nucleated RBC % 0 Sodium 134 L Potassium 3.7 Chloride 104 Carbon Dioxide 20.0 L Anion Gap 10 BUN 16 Creatinine 0.84 Estim Creat Clear Calc 100.32 Est GFR (MDRD) Af Amer 93 Est GFR (MDRD) Non-Af 77 BUN/Creatinine Ratio 19.1 Glucose 169 H Calcium 9.2 Total Bilirubin 0.90 AST 78 H ALT 150 H Alkaline Phosphatase 107 Total Protein 8.2 Albumin 3.8 Globulin 4.4 H Albumin/Globulin Ratio 0.9 Lipase 28 Serum , Qual NEGATIVE Radiography Diagnostic Testing: Clinical Impression(s) from Imaging Studies Abdomen/Pelvis CT 04/08/24 02:57 IMPRESSION: 1. Findings of a gastroenteritis with diarrhea. 2. No findings of small bowel obstruction. 3. Enlarged fatty liver. 4. Previous appendectomy. 5. Minimal distal esophageal mural thickening due to hiatal hernia and/or very mild reflux esophagitis. Electronically Signed: Stephane Tovar MD at 4:17 EST , Discharge Plan Triage Chief Complaint: Nausea/Vomiting/Diarrhea ED Provider: Marvin Dougherty Dx/Rx/DC Orders Clinical Impression: Nausea, vomiting, and diarrhea, Abdominal pain Instructions: ED Gastroenteritis, Viral (Adult) Prescriptions: New promethazine 25 mg tablet 25 mg PO Q6H PRN (Reason: nausea and vomiting) Qty: 20 0RF No Action albuterol sulfate [Ventolin HFA] 90 mcg/actuation HFA aerosol inhaler 1 - 2 puff inhalation Q4H PRN PRN (Reason: Wheezing) Qty: 1 0RF Trelegy Ellipta 100-62.5-25 mcg blister with device 1 inh inhalation Q24H Qty: 60 3RF cariprazine 3 mg capsule 3 mg PO DAILY Qty: 30 2RF quetiapine 25 mg tablet 25 mg PO QHS Qty: 30 2RF clonazepam 1 mg tablet 1 mg PO DAILY PRN (Reason: anxiety) 15 Days Qty: 15 2RF acetaminophen 500 mg tablet 1,000 mg PO Q8H PRN (Reason: Pain) ibuprofen 800 mg tablet 800 mg PO TID PRN (Reason: pain) Qty: 30 0RF albuterol sulfate 2.5 mg /3 mL (0.083 %) solution for nebulization 2.5 mg inhalation Q4H PRN Qty: 25 0RF Rx Instructions: Use q4 hours and PRN for wheezing [employer] 18 mg iron- 240 mcg-120 mcg tablet 1 tab PO DAILY (DME) nebulizer and compressor Device See Rx Instructions .Route Qty: 1 0RF Rx Instructions: As directed ipratropium-albuterol 0.5 mg-3 mg(2.5 mg base)/3 mL Solution For Nebulization 3 ml inhalation Q4H.RT Qty: 180 0RF oxycodone 5 mg tablet 5 mg PO Q6H PRN (Reason: pain) 3 Days Qty: 12 0RF prednisone 50 mg tablet 50 mg PO DAILY 5 Days Qty: 5 0RF ondansetron 4 mg tablet,disintegrating 4 mg PO Q8H PRN PRN (Reason: Nausea) Qty: 30 0RF sumatriptan succinate [Imitrex] 25 mg tablet See Rx Instructions PO .COMPLEX Qty: 10 1RF Rx Instructions: take 1 tab at onset of headache; if no relief may repeat 1 tab after at least 2 hrs; max = 4 tabs/24 hr PO topiramate 25 mg tablet 25 mg PO BID Qty: 60 0RF Rx Instructions: Take QHS x 2 weeks then increase to BID Stand Alone Forms: ED Work / School Excuse Primary Care Provider: Juve Brown Referrals: Juve Brown MD [Primary Care Provider] - 3-5 Days if not improving Print Language: Irish Disposition Disposition: Home, Self Care
[2024-04-08 03:08] LABS: Absolute Lymphocyte Count 0.59 X10^3/uL (0.83-4.51); Absolute Neutrophil Count 17.6 X10^3/uL (2.0-7.7); Basophil# 0.05 X10^3/uL; Basophil% 0.3 % (0-1); Eosinophil# 0.07 X10^3/uL; Eosinophils% 0.4 % (0-5); Hematocrit 45.3 % (37-47); Hemoglobin 14.7 g/dL (12.0-15.0); Lymphocyte # 0.59 X10^3/ul (0.83-4.51); Lymphocyte % 3.2 % (19-41); Mean Corp Hgb Conc 32.5 g/dL (32-36); Mean Corpuscular Hgb 29.1 pg (27.0-32.0); Mean Corpuscular Volume 89.5 fL (81-99); Mean Platelet Vol. 9.4 fl (6.2-12.0); Monocyte% 1.6 % (0-10); NRBC Flagged by Analyzer 0 % (0-5); Neutrophil % 93.9 % (47-70); POSITIVE DIFFERENTIAL YES; Platelet Count 368 K/mm3 (150-450); RBC Distribution Width CV 13.1 % (11.6-14.6); RBC Distribution Width SD 42.5 fl (35.1-43.9); Red Blood Count 5.06 M/mm3 (4.2-5.4); White Blood Count 18.7 K/mm3 (4.4-11.0)
[2024-04-08] MEDS: Ondansetron 4 MG/2 ML Vial IV ×2 (03:10→03:47)
--- NOTE | 2024-04-08 03:22 | ED.RN ---
upon arrival pt incontinent of stool per pt.gave pt warm wipes and mesh underwear,asked if she needed help and she said she was fine.
[2024-04-08 03:24] LABS: Internal QC Validated? YES +Cl - CLEAR BKGD; Pregnancy, Serum, hCG Quali. NEGATIVE Negative
[2024-04-08 03:29] LABS: ALB/GLOB Ratio 0.9 RATIO (0.9-2.4); AST(SGOT) 78 U/L (15-37); Alanine Aminotransfer ALT/SGPT 150 U/L (13-56); Albumin, Serum 3.8 g/dL (3.2-5.0); Alkaline Phosphatase 107 U/L (45-117); Anion Gap 10 (5-15); BUN 16 mg/dL (7-18); BUN/Creat Ratio 19.1 RATIO (10-20); Calcium,Total 9.2 mg/dL (8.5-10.1); Chloride 104 mmol/L (98-107); Creatinine, Serum 0.84 mg/dL (0.55-1.02); EST Glomerular Filtration Rate 77 mL/min (>60); Est Glom Filt Rate - Afr Amer 93 mL/min (>60); Estimated Creatinine Clearance 100.32 ml/min; Globulin 4.4 g/dL (2.2-4.2); Glucose 169 mg/dL (74-106); Lipase 28 U/L (13-75); Potassium 3.7 mmol/L (3.5-5.1); Protein, Total 8.2 g/dL (6.4-8.2); Sodium Level 134 mmol/L (136-145)
[2024-04-08 04:59] VITALS: PULSE 95; RESP 18; O2SAT 98
== END 2024-04-08 04:59 | disposition home or self-care (01) ==
PROVIDERS: Emergency Provider Emergency Medicine; PCP Internal Medicine; Visit Provider Emergency Medicine
DX: R11.2 Nausea with vomiting, unspecified (principal); J44.9 Chronic obstructive pulmonary disease, unspecified; R19.7 Diarrhea, unspecified; R10.9 Unspecified abdominal pain; F17.210 Nicotine dependence, cigarettes, uncomplicated; F17.290 Nicotine dependence, other tobacco product, uncomplicated; Z90.49 Acquired absence of other specified parts of digestive tract; Z79.51 Long term (current) use of inhaled steroids

== ENCOUNTER 2024-04-19 15:29 | Emergency (ER) | payer MEDICAID, SELFPAY ==
[2024-04-19 15:29] VITALS: BP 134/78; PULSE 78; RESP 16; TEMP 36.9; O2SAT 98; BMI 44.4
--- NOTE | 2024-04-19 16:00 | RAD_ITS ---
PROCEDURE: ANKLE MIN 3 VIEWS REASON FOR EXAM: Patient fell. Right ankle pain. Lateral swelling. TECHNIQUE: Three views of the right ankle COMPARISON: None. FINDINGS: RIGHT ANKLE: No visible fracture. No suspicious bone lesion. Normal alignment. Mortise appears intact. No effusion. Soft tissue swelling laterally. RAD/Ankle min 3 Views IMPRESSION: No acute osseous abnormalities are demonstrated. Soft tissue swelling laterally. Reading Location: [facility]
--- NOTE | 2024-04-19 19:37 | EDS_ITS ---
HPI History of Present Illness Chief Complaint: Lower Extremity Injury Informant: patient Narrative Narrative: 48-year-old female presenting to the emergency room with right ankle pain. Patient states that she was walking when she suddenly fell down. She does note she slipped on ice her on a crack on the sidewalk. She notes pain mostly to the right ankle. She notes a left knee skin abrasion and right elbow skin abrasion. She denies striking her head. [facility] Medical History Migraine Screening for cardiovascular condition Morbid obesity Hypersomnolence Dermatitis Breast cyst Schizoaffective disorder, bipolar type History of herniated intervertebral disc Wears glasses Schizophrenia Bipolar disorder Alcohol use Easy bruising Hepatitis Injury of back Peptic ulcer History of IBS Smoker MARIA INES (obstructive sleep apnea) Shortness of breath on exertion Chronic cough Leg cramps History of stress test Hx of degenerative disc disease Herniated cervical disc Lumbar radicular pain COPD (chronic obstructive pulmonary disease) Chronic pain Ulnar nerve laceration Carpal tunnel syndrome COPD exacerbation Polysubstance abuse Tobacco use (Unknown) Asthma Anxiety Hepatitis C Home Medications ?Medication ?Instructions ?Recorded ?Last Taken ?Type acetaminophen 500 mg tablet 1,000 mg PO Q8H PRN Pain 07/05/21 06/26/23 History ibuprofen 800 mg tablet 800 mg PO TID PRN pain #30 tabs 09/10/21 06/26/23 Rx zhacefau-cnpt-afh-iron 18 mg-folic 1 tab PO DAILY SUPPLEMENT 06/26/23 06/26/23 History 240 mcg-vit K 120 mcg-herbal tablet ([employer]) ipratropium 0.5 mg-albuterol 3 mg 3 ml inhalation Q4H.RT #180 mL 06/27/23 Unknown Rx (2.5 mg base)/3 mL nebulization soln nebulizer and compressor #1 ea 06/27/23 Unknown Rx albuterol sulfate 2.5 mg/3 mL 2.5 mg (3 mL) inhalation Q4H PRN 12/03/23 Unknown Rx (0.083 %) solution for nebulization #25 vials albuterol sulfate 90 mcg/actuation 1 - 2 puff inhalation Q4H PRN PRN 01/11/24 Unknown Rx aerosol inhaler (Ventolin HFA) Wheezing ##1 fluticasone fur. 100 mcg-umeclid 1 inh inhalation Q24H #60 ea 01/11/24 Unknown Rx 62.5 mcg-vilant 25 mcg inhalat.powder (Trelegy Ellipta) ondansetron 4 mg disintegrating 4 mg PO Q8H PRN PRN Nausea #30 tabs 01/12/24 Unknown Rx tablet cariprazine 3 mg capsule 3 mg PO DAILY #30 caps 02/11/24 Unknown Rx quetiapine 25 mg tablet 25 mg PO QHS sleep/mood #30 tabs 02/11/24 Unknown Rx clonazepam 1 mg tablet 1 mg PO DAILY PRN anxiety 15 days 03/24/24 Unknown Rx #15 tabs sumatriptan succinate 25 mg tablet See Rx Instructions PO .COMPLEX 03/30/24 Unknown Rx (Imitrex) #10 tabs oxycodone 5 mg tablet 5 mg PO Q6H PRN pain 3 days #12 04/02/24 Unknown Rx tabs topiramate 25 mg tablet 25 mg PO BID #60 tabs 04/04/24 Unknown Rx promethazine 25 mg tablet 25 mg PO Q6H PRN nausea and 04/14/24 Unknown Rx vomiting #20 tabs semaglutide (weight loss) 0.25 0.25 mg (0.5 mL) subcut QWEEK #2 mL 04/14/24 Unknown Rx mg/0.5 mL subcutaneous pen injector (Wegovy) Allergy/AdvReac Type Severity Reaction Status Date / Time hydrocodone Allergy Intermediate Hives Verified 04/19/24 15:29 Family History Mother Anemia Asthma Arthritis Emotional disorder Bleeding disorder COPD (chronic obstructive pulmonary disease) Father Myocardial infarction Prostate cancer Surgical History History of back surgery History of lumbar laminectomy History of back surgery History of decompression of ulnar nerve History of cholecystectomy History of appendectomy History of tubal ligation Social History adopted: No household members: significant other housing: house number of children: 3 current occupational status: employed current occupation: [employer] pets and animals: Yes pets and animals: cat(s) and dog(s) sexually active: Yes Smoking Status: Current every day smoker tobacco type: cigarettes and e- cigarettes Tobacco: How many years used: 20 alcohol intake: never substance use type: does not use caffeine: Yes (2) Type: carbonated beverages and coffee what type of physical activity do you participate in: none do you feel safe at home: Yes ROS ROS ED Constitutional Constitutional ED: Denies chills or weight loss Eyes Eyes: Denies change in vision or diplopia ENT ENT ED: Denies ear pain, rhinorrhea or sore throat Cardiovascular Cardiovascular: Denies chest pain, orthopnea, palpitations or racing heartbeat Respiratory/Chest Respiratory/Chest: Denies cough, dyspnea or orthopnea Gastrointestinal Gastrointestinal: Denies abdominal pain, diarrhea, nausea or vomiting Genitourinary Genitourinary ED: Denies dysuria, hematuria or urinary frequency Musculoskeletal Musculoskeletal: Reports other Details: See history of present illness ; Denies arthralgias, back pain, myalgias or neck pain Integumentary Reports Abrasions; Denies abscess or rash Neurologic Neurologic: Denies headache(s) or weakness Psychiatric Psychiatric: Denies anxiety, depression, suicidal ideation or suicidal thoughts Endocrine Endocrinology: Denies polydipsia, polyphagia or polyuria Allergic/Immunologic Allergic/Immunologic ED: Denies mouth swelling, tongue swelling or urticaria EXAM Physical Exam Const Vital Signs: 04/19/24 15:29 Temperature 98.4 F Temperature Source Oral Pulse Rate 78 Respiratory Rate 16 Blood Pressure 134/78 H Blood Pressure Mean 96 Pulse Ox 98 Oxygen Delivery Method Room Air Positive well nourished and well developed General Appearance ED: well developed HEENT Reports normocephalic, head/scalp atraumatic and moist mucous membranes Eyes PERRL and EOMs intact bilaterally Neck full ROM, no lymphadenopathy, supple and no JVD Resp normal respiratory effort and clear to auscultation bilaterally Cardio regular rate, regular rhythm and no murmurs GI normal to inspection, nondistended, normoactive bowel sounds and non-tender Palpation: soft Back/Spine no CVA tenderness and normal ROM Extremity Extremity Narrative: There is swelling over the lateral and medial malleolus of the right ankle. There is no fifth metatarsal or fibular head tenderness. The Achilles palpates and functionally is intact. Neurovascular she is intact. There are superficial abrasions and mild swelling over the infrapatellar anterior surface of the left knee. Extensor mechanism is intact. There is superficial abrasion to the right elbow. General Extremety ED: Negative for edema General Extremity: Negative for edema Neuro oriented x3 and CN's II-XII intact bilaterally Sensorium / Orientation: alert Motor Exam: strength 5/5 throughout Psych mental status grossly normal Mood & Affect: Negative for depressed or tearful Skin no rashes or lesions noted and no wounds MDM MDM MDM Narrative Medical decision making narrative: Differential diagnosis include abrasions contusion ankle sprain ankle fracture Maisonneuve fracture My independent interpretation the plain films of the right ankle is no acute fracture. Wounds to be cleansed and dressed. I will give her Percocet for pain. Would recommend air splint crutches as needed follow-up 10 to 14 days if not improved History & Record Review Discussion w/independent historian: Patient Radiography Diagnostic Testing: Clinical Impression(s) from Imaging Studies Ankle X-Ray 04/19/24 16:00 IMPRESSION: No acute osseous abnormalities are demonstrated. Soft tissue swelling laterally. Reading Location: [facility] Discharge Plan Triage Chief Complaint: Lower Extremity Injury ED Provider: David Espinoza Dx/Rx/DC Orders Prescriptions: No Action albuterol sulfate [Ventolin HFA] 90 mcg/actuation HFA aerosol inhaler 1 - 2 puff inhalation Q4H PRN PRN (Reason: Wheezing) Qty: 1 0RF Trelegy Ellipta 100-62.5-25 mcg blister with device 1 inh inhalation Q24H Qty: 60 3RF cariprazine 3 mg capsule 3 mg PO DAILY Qty: 30 2RF quetiapine 25 mg tablet 25 mg PO QHS Qty: 30 2RF Wegovy 0.25 mg/0.5 mL pen injector 0.25 mg subcut QWEEK Qty: 2 0RF Rx Instructions: administer weeks 1 through 4 of therapy promethazine 25 mg tablet 25 mg PO Q6H PRN (Reason: nausea and vomiting) Qty: 20 0RF clonazepam 1 mg tablet 1 mg PO DAILY PRN (Reason: anxiety) 15 Days Qty: 15 2RF acetaminophen 500 mg tablet 1,000 mg PO Q8H PRN (Reason: Pain) ibuprofen 800 mg tablet 800 mg PO TID PRN (Reason: pain) Qty: 30 0RF albuterol sulfate 2.5 mg /3 mL (0.083 %) solution for nebulization 2.5 mg inhalation Q4H PRN Qty: 25 0RF Rx Instructions: Use q4 hours and PRN for wheezing [employer] 18 mg iron- 240 mcg-120 mcg tablet 1 tab PO DAILY (DME) nebulizer and compressor Device See Rx Instructions .Route Qty: 1 0RF Rx Instructions: As directed ipratropium-albuterol 0.5 mg-3 mg(2.5 mg base)/3 mL Solution For Nebulization 3 ml inhalation Q4H.RT Qty: 180 0RF oxycodone 5 mg tablet 5 mg PO Q6H PRN (Reason: pain) 3 Days Qty: 12 0RF ondansetron 4 mg tablet,disintegrating 4 mg PO Q8H PRN PRN (Reason: Nausea) Qty: 30 0RF sumatriptan succinate [Imitrex] 25 mg tablet See Rx Instructions PO .COMPLEX Qty: 10 1RF Rx Instructions: take 1 tab at onset of headache; if no relief may repeat 1 tab after at least 2 hrs; max = 4 tabs/24 hr PO topiramate 25 mg tablet 25 mg PO BID Qty: 60 0RF Rx Instructions: Take QHS x 2 weeks then increase to BID Primary Care Provider: Juve Brown Referrals: Juve Brown MD [Primary Care Provider] - Print Language: Turkmen
[2024-04-19 20:01] VITALS: BP 134/78; PULSE 78; RESP 16; TEMP 36.9; O2SAT 98
== END 2024-04-19 20:02 | disposition home or self-care (01) ==
PROVIDERS: Emergency Provider Emergency Medicine; PCP Internal Medicine; Visit Provider Emergency Medicine
DX: M25.571 Pain in right ankle and joints of right foot (principal); F20.9 Schizophrenia, unspecified; J44.9 Chronic obstructive pulmonary disease, unspecified; F17.210 Nicotine dependence, cigarettes, uncomplicated; F17.290 Nicotine dependence, other tobacco product, uncomplicated; W00.9XXA Unspecified fall due to ice and snow, initial encounter; G47.33 Obstructive sleep apnea (adult) (pediatric)
CPT/HCPCS: 73610; 99284

== ENCOUNTER → 2024-04-26 | Outpatient (CLI) | payer MEDICAID, SELFPAY ==
--- NOTE | 2024-04-26 15:04 | VDLE_ITS ---
Reason For Study: Right leg pain RIGHT LEFT GSV is normal. CFV is compressible, spontaneous, phasic, CFV is compressible, spontaneous, phasic, competent, and demonstrates normal competent and demonstrates normal augmentation. augmentation. FV is compressible, spontaneous, phasic, competent and demonstrates normal augmentation. POP V is compressible, spontaneous, phasic, competent and demonstrates normal augmentation. T/P Trunk is compressible. PTV is compressible. RT PerV is compressible. Procedure This is a venous duplex using B-mode, color flow and spectral Doppler. Exam performed in department. A preliminary report was called and/or faxed to Dr. Cast. VL/Venous Duplex US, Unilateral Interpretation Summary Deep veins of the right lower extremity are patent and compressible segmentally . There is no evidence of right lower extremity deep vein thrombosis. The right great sapheno us vein appears patent and compressible segmentally. Ordering Physician: Jerzy Cast Referring Physician: Juve Brown Performed By: Myrna Quesada RVT
== END | disposition home or self-care (01) ==
LOC: CVS 15:04
PROVIDERS: PCP Internal Medicine; Referring Provider Podiatrist; Visit Provider Podiatrist
DX: M79.661 Pain in right lower leg (principal)
CPT/HCPCS: 93971

== ENCOUNTER → 2024-05-09 | Outpatient (CLI) | payer MEDICAID, SELFPAY ==
--- NOTE | 2024-05-09 15:27 | MRI_ITS ---
PROCEDURE: MRI right ankle without IV contrast REASON FOR EXAM: Pain, injury TECHNIQUE: Multisequence multiplanar MR images of the right ankle were obtained without the administration of intravenous contrast. COMPARISON: None. FINDINGS Achilles tendon is intact. Mild diffuse flexor tenosynovitis, greatest involving the tibialis posterior and knot of Kane. Peroneal tendons are intact. Extensor tendons are intact. Syndesmotic ligaments are intact. Torn anterior talofibular ligament. Sprain of the calcaneofibular ligament. Intact posterior talofibular ligament. Sprains of the superficial and deep deltoid ligaments without discrete tear. Moderate focal edema along the medial aspect of the talar neck likely related to contusion. No discrete fracture line noted. Remaining bone marrow signal is within normal limits. Small tibiotalar and subtalar joint effusions with mild synovitis. Plantar fascia is intact. Sinus tarsi fat is preserved. Mild medial and lateral soft tissue edema. MRI/Lower Ext Joint Only (Routine) IMPRESSION: 1. Torn anterior talofibular ligament. Sprain of the calcaneofibular ligament. 2. Sprains of the deep and superficial deltoid ligaments. 3. Moderate contusion along the medial aspect of the talar neck without a discr ete fracture line. 4. Mild diffuse flexor tenosynovitis. Visualized tendons are otherwise intact. Reading Location: [facility]
== END | disposition home or self-care (01) ==
LOC: MRI 15:10
PROVIDERS: PCP Internal Medicine; Referring Provider Podiatrist; Visit Provider Podiatrist
DX: S86.311A Strain of muscle(s) and tendon(s) of peroneal muscle group at lower leg level, right leg, initial encounter (principal); S93.491A Sprain of other ligament of right ankle, initial encounter; M66.871 Spontaneous rupture of other tendons, right ankle and foot; X58.XXXA Exposure to other specified factors, initial encounter
CPT/HCPCS: 73721

== ENCOUNTER 2024-08-08 17:08 | Emergency (ER) | payer MEDICAID, SELFPAY ==
[2024-08-08 17:08] VITALS: BP 132/97; PULSE 103; RESP 16; TEMP 36.4; O2SAT 98; BMI 44.8
--- NOTE | 2024-08-08 17:50 | ED.VIS.BACK ---
HPI History of Present Illness Chief Complaint: Back Informant: patient Onset/Context/Timing Onset: Days Context: Gradual Onset Injury: lifting, bending and repetitive motion Timing: Continuous Quality: Sharp Location: Lumbar and Right Leg Current Severity: Moderate Maximum Severity: Severe Worsened by: improves with Movement and Bending Relieved by: Remaining Still Associated Symptoms Associated Symptoms: Radiation to Right Leg; Negative for Numbness, Tingling, Fever, Abdominal Pain, Dysuria, Unable to Ambulate, Unable to Transfer, Urinary Retention, Urinary Incontinence, Constipation or Fecal Incontinence Narrative Narrative: 49-year-old female history of degenerative disc disease with prior L3-4 and 5 laminectomy. That was about 3 years ago. 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 Denies any fall injury or trauma. No fever. States she is aggravated her lower back with radiation going her right buttock and right hamstring. No fever. No bowel or bladder incontinence. No retention. No leg weakness. She came in today to be evaluated. Prior similar symptoms: Yes Recent Illness/Hospitalization: No PFSH PFSH Medical History Migraine Screening for cardiovascular condition Morbid obesity Hypersomnolence Dermatitis Breast cyst Schizoaffective disorder, bipolar type History of herniated intervertebral disc Wears glasses Schizophrenia Bipolar disorder Alcohol use Easy bruising Hepatitis Injury of back Peptic ulcer History of IBS Smoker MARIA INES (obstructive sleep apnea) Shortness of breath on exertion Chronic cough Leg cramps History of stress test Hx of degenerative disc disease Herniated cervical disc Lumbar radicular pain COPD (chronic obstructive pulmonary disease) Chronic pain Ulnar nerve laceration Carpal tunnel syndrome COPD exacerbation Polysubstance abuse Tobacco use (Unknown) Asthma Anxiety Hepatitis C Home Medications ?Medication ?Instructions ?Recorded ?Last Taken ?Type acetaminophen 500 mg tablet 1,000 mg PO Q8H PRN Pain 07/05/21 06/26/23 History [id number] 18 mg-folic 1 tab PO DAILY SUPPLEMENT 06/26/23 06/26/23 History 240 mcg-vit K 120 mcg-herbal tablet ([employer]) ipratropium 0.5 mg-albuterol 3 mg 3 ml inhalation Q4H.RT #180 mL 06/27/23 Unknown Rx (2.5 mg base)/3 mL nebulization soln nebulizer and compressor #1 ea 06/27/23 Unknown Rx sumatriptan succinate 25 mg tablet See Rx Instructions PO .COMPLEX 03/30/24 Unknown Rx (Imitrex) #10 tabs albuterol sulfate 90 mcg/actuation 1 - 2 puff inhalation Q4H PRN PRN 04/25/24 Unknown Rx aerosol inhaler (Ventolin HFA) Wheezing ##1 ibuprofen 800 mg tablet 800 mg PO TID PRN pain #30 tabs 04/25/24 Unknown Rx cariprazine 3 mg capsule 3 mg PO DAILY #30 caps 05/19/24 Unknown Rx quetiapine 25 mg tablet 25 mg PO QHS sleep/mood #30 tabs 05/19/24 Unknown Rx albuterol sulfate 2.5 mg/3 mL 2.5 mg (3 mL) inhalation Q4H PRN 06/26/24 Unknown Rx (0.083 %) solution for nebulization #25 vials clonazepam 1 mg tablet 1 mg PO DAILY PRN anxiety 15 days 07/11/24 Unknown Rx #15 tabs acyclovir 800 mg tablet 800 mg PO BID 15 days #30 tabs 08/08/24 Unknown Rx metaxalone 800 mg tablet 800 mg PO TID #21 tabs 08/08/24 Unknown Rx oxycodone-acetaminophen 5 mg-325 1 tab PO Q6H PRN PRN pain 3 days 08/08/24 Unknown Rx mg tablet #12 TABLETS prednisone 50 mg tablet 50 mg PO DAILY 7 days #7 tabs 08/08/24 Unknown Rx Allergy/AdvReac Type Severity Reaction Status Date / Time hydrocodone Allergy Intermediate Hives Verified 08/08/24 17:08 Family History Mother Anemia Asthma Arthritis Emotional disorder Bleeding disorder COPD (chronic obstructive pulmonary disease) Father Myocardial infarction Prostate cancer Surgical History History of back surgery History of lumbar laminectomy History of back surgery History of decompression of ulnar nerve History of cholecystectomy History of appendectomy History of tubal ligation Social History adopted: No household members: significant other housing: house number of children: 3 current occupational status: employed 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 At times radiating her right buttock and hamstring. Eyes Eyes: Denies blurry vision ENT ENT ED: Denies ear pain Cardiovascular Cardiovascular: Denies chest pain or palpitations Respiratory/Chest Respiratory/Chest: Denies dyspnea or dyspnea on exertion Gastrointestinal Gastrointestinal: Denies abdominal pain Genitourinary Genitourinary ED: Denies dysuria or hematuria Musculoskeletal Musculoskeletal: Reports back pain; Denies arthralgias Integumentary Denies abscess or Abrasions Neurologic Neurologic: Denies headache(s) or paresthesias Psychiatric Psychiatric: Denies anxiety Endocrine Endocrinology: Denies cold intolerance Hematologic/Lymphatic Hematologic/Lymphatic: Denies easy bleeding, easy bruising or lymphadenopathy Allergic/Immunologic Allergic/Immunologic ED: Denies mouth swelling, tongue swelling or urticaria EXAM Physical Exam Narrative Exam Narrative: 49-year-old female sitting upright in bed. At times tearful. Complaint low back pain. No one else present in room. Vital signs are stable afebrile. H EENT exam is round reactive light. moist mucous membranes. No trauma to her face or scalp. Neck nontender. Back cervical and thoracic spine nontender. Lumbar and paralumbar soft tissue tender to palpation. No ecchymosis or bruising. No redness or warmth. Consistent with lumbar strain, degenerative disc disease. No redness or warmth. Well-healed prior lumbar surgery over several levels. 5 out of 5 powerhouse tender strength. Dorsi plantarflexion intact. No cauda equina. No saddle anesthesia. Positive straight leg raise on the right negative on the left. Normal medial thigh sensation. 5 out of 5 dorsi and plantarflexion. She can lift either leg off the bed. Lungs are clear. Heart regular rhythm. Abdomen soft nontender normal bowel sounds without peritoneal signs. Neurologically she is awake alert. Answering questions following commands. Normal strength and sensation. Again no cauda equina. Const Vital Signs: 08/08/24 17:08 Temperature 97.5 F L Temperature Source Temporal Pulse Rate 103 H Respiratory Rate 16 Blood Pressure 132/97 H Blood Pressure Mean 108 Pulse Ox 98 Oxygen Delivery Method Room Air Positive well developed and obese; Negative for cachectic, contractures or unkempt General Appearance ED: well developed; Negative for unkempt, cachectic, contractures, NAD or pallor Nutritional Appearance: obese; Negative for cachectic HEENT Reports moist mucous membranes Negative for trauma or tenderness Eyes PERRL and EOMs intact bilaterally Neck no lymphadenopathy, supple and no JVD Resp normal respiratory effort and clear to auscultation bilaterally Cardio regular rate, regular rhythm, S1 normal heart sound, S2 normal heart sound and no murmurs GI normal to inspection, nondistended, normoactive bowel sounds, soft to palpation, non-tender, non-distended and no masses Palpation: Negative for tender, guarding or rebound tenderness present Back/Spine normal to inspection; Negative for no thoracic nor lumbar tenderness Back/Spine Narrative: Lumbar and paralumbar tenderness. Consistent myofascial strain. Also radiculopathy with positive straight leg raise on the right. Well-healed prior lumbar incision. Dry and clean. No redness or warmth. Both lower extremities are neurovascularly intact with normal dorsi plantarflexion. No cauda equina. Normal medial thigh sensation. Cervical Spine: Negative for paracervical muscle tenderness Thoracic Spine / Upper Back: Negative for paraspinal muscle tenderness Lumbar Spine / Lower Back: straight leg raise positive right Extremity normal to inspection and no clubbing, cyanosis or edema Neuro oriented x3 and no sensory deficits noted Sensorium / Orientation: alert; Negative for confused, lethargic or stuporous Motor Exam: strength 5/5 throughout; Negative for strength abnormal Psych mental status grossly normal Appearance: Negative for unkempt Mood & Affect: tearful; Negative for depressed or sad Skin no rashes or lesions noted and no wounds General Skin Exam: Negative for jaundice or pallor Lesions: No lesion noted Rashes: No rashes noted Trauma: Negative for abrasion or puncture MDM MDM MDM Narrative Medical decision making narrative: 49-year-old prior back surgery L3, L4 and L5. Doing a lot of moving over the last week has had weeks with the back pain. Exam is consistent with lumbar strain and radiculopathy. She will be given IM morphine 10 mg. P.o. Zofran and IM Toradol. Discharged to home with limited oxycodone 12 no refill. Skelaxin for muscle relaxant. And prednisone 50 mg a day for a week. She has a follow-up with primary care physician is not improving or return if she develops increasing pain, fever or weakness or bowel or bladder incontinence. History & Record Review Additional record(s) reviewed:: Prior inpatient record, Prior outpatient record, Prior ED visit and Prior labs Discharge Plan Triage Chief Complaint: Back ED Provider: Stanton Car Dx/Rx/DC Orders Clinical Impression: Back pain, Radiculopathy due to lumbar intervertebral disc disorder, Back strain, History of back surgery, History of COPD Instructions: ED Back Pain (Acute or Chronic) Prescriptions: New metaxalone 800 mg tablet 800 mg PO TID Qty: 21 0RF oxycodone-acetaminophen 5-325 mg tablet 1 tab PO Q6H PRN PRN (Reason: pain) 3 Days Qty: 12 0RF acyclovir 800 mg tablet 800 mg PO BID 15 Days Qty: 30 1RF prednisone 50 mg tablet 50 mg PO DAILY 7 Days Qty: 7 0RF No Action ibuprofen 800 mg tablet 800 mg PO TID PRN (Reason: pain) Qty: 30 0RF albuterol sulfate [Ventolin HFA] 90 mcg/actuation HFA aerosol inhaler 1 - 2 puff inhalation Q4H PRN PRN (Reason: Wheezing) Qty: 1 0RF cariprazine 3 mg capsule 3 mg PO DAILY Qty: 30 2RF quetiapine 25 mg tablet 25 mg PO QHS Qty: 30 2RF albuterol sulfate 2.5 mg /3 mL (0.083 %) solution for nebulization 2.5 mg inhalation Q4H PRN Qty: 25 0RF Rx Instructions: Use q4 hours and PRN for wheezing acetaminophen 500 mg tablet 1,000 mg PO Q8H PRN (Reason: Pain) [employer] 18 mg iron- 240 mcg-120 mcg tablet 1 tab PO DAILY (DME) nebulizer and compressor Device See Rx Instructions .Route Qty: 1 0RF Rx Instructions: As directed ipratropium-albuterol 0.5 mg-3 mg(2.5 mg base)/3 mL Solution For Nebulization 3 ml inhalation Q4H.RT Qty: 180 0RF sumatriptan succinate [Imitrex] 25 mg tablet See Rx Instructions PO .COMPLEX Qty: 10 1RF Rx Instructions: take 1 tab at onset of headache; if no relief may repeat 1 tab after at least 2 hrs; max = 4 tabs/24 hr PO clonazepam 1 mg tablet 1 mg PO DAILY PRN (Reason: anxiety) 15 Days Qty: 15 2RF Primary Care Provider: Juve Brown Referrals: Juve Brown MD [Primary Care Provider] - 3-5 Days if not improving Activity Restrictions/Additional Instructions: He strained her lower back. He also may have aggravated the degenerative disc disease. Prednisone for disc swelling to help reduce it. 50 mg daily for 1 week. Oxycodone for more severe pain. Hot shower. Warm bath. Ice. Massage. Follow-up with your doctor if not improving. Return to the emergency department if bowel or bladder incontinence or leg weakness or you develop a fever or the pain just getting worse. Skelaxin and muscle relaxant 3 times a day till gone. Print Language: Kiswahili Disposition Disposition: Home, Self Care
[2024-08-08] MEDS: morphine 10 MG/ML Syringe IM (17:53)
[2024-08-08] MEDS: Ketorolac 60 MG/2 ML Vial IM (17:53)
[2024-08-08] MEDS: Ondansetron 8 MG Tablet PO (17:59)
== END 2024-08-08 18:17 | disposition home or self-care (01) ==
LOC: ED 17:52
PROVIDERS: Emergency Provider Emergency Medicine; PCP Internal Medicine; Visit Provider Emergency Medicine
DX: M54.9 Dorsalgia, unspecified (principal); F20.9 Schizophrenia, unspecified; J44.9 Chronic obstructive pulmonary disease, unspecified; M51.16 Intervertebral disc disorders with radiculopathy, lumbar region; F17.210 Nicotine dependence, cigarettes, uncomplicated; S39.012A Strain of muscle, fascia and tendon of lower back, initial encounter; Z90.49 Acquired absence of other specified parts of digestive tract; Z98.51 Tubal ligation status; F17.290 Nicotine dependence, other tobacco product, uncomplicated; X50.9XXA Other and unspecified overexertion or strenuous movements or postures, initial encounter; Y93.89 Activity, other specified
CPT/HCPCS: 96372; 99282

== ENCOUNTER 2024-08-27 04:03 | Emergency (ER) | payer MEDICAID, SELFPAY ==
[2024-08-27 04:03] VITALS: BP 127/77; PULSE 107; RESP 20; TEMP 36.6; O2SAT 97; BMI 44.8
[2024-08-27] MEDS: Diphth,Pertuss(Acell),Tet Vac 0.5 ML Vial IM (04:38)
[2024-08-27] MEDS: Lidocaine 1% (20 ml mdv) 20 ML Vial INFILT (04:40)
--- OUTSIDE RECORDS SUMMARY | 2024-08-27 04:40 | XMS RPT_ITS | CCD ---
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 Role Phone Celine ENCISO, Olivia Primary Care Provider [phone] Olivia Prakash MD Primary Care Provider Domenic JOHNSON, Nithya Unavailable SHERYL MINA Attending Unavailable FIGSHERYL RENDON Referring Unavailable GANTA, OLIVIA Primary Care Unavailable SHERYL MINA Referring Unavailable GANTA, OLIVIA Primary Care Unavailable SHERYL MINA Attending Unavailable FIGAS, SHERYL M Referring Unavailable GANTA, OLIVIA Primary Care Unavailable Olivia Prakash MD Primary Care Provider [phone] 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, Marie Unavailable Marvin Dougherty Attending Unavailable Oleghe, Efewongbe Primary Care Unavailable Nathan Martinez Attending Unavailable Oleghe, Efewongbe Primary Care Unavailable Ganta, Olivia Primary Care Unavailable Sukhdeep Ribeiro Attending Unavailable Oleghe, Efewongbe Attending Unavailable Oleghe, Efewongbe Referring Unavailable Oleghe, Efewongbe Primary Care Unavailable Balaji Parker Attending Unavailable Ganta, Olivia Primary Care Unavailable Oleghe, Efewongbe Attending Unavailable Oleghe, Efewongbe Primary Care Unavailable Oleghe, Efewongbe Referring Unavailable Oleghe, Efewongbe Primary Care Unavailable Balaji Parker Attending Unavailable Oleghe, Efewongbe Primary Care Unavailable Balaji Parker Attending Unavailable Donovan Jackson Attending Unavailable Ganta, Olivia Primary Care Unavailable Oleghe, Efewongbe Primary Care Unavailable David Espinoza Attending Unavailable Oleghe, Efewongbe Attending Unavailable Oleghe, Efewongbe Referring Unavailable Oleghe, Efewongbe Primary Care Unavailable Stanton Car Attending Unavailable Oleghe, Efewongbe Primary Care Unavailable Balaji Parker Attending Unavailable Ganta, Olivia Primary Care Unavailable Balaji Parker Attending Unavailable Oleghe, Efewongbe Primary Care Unavailable Kushal Marshall NP Attending Unavailable Oleghe, Efewongbe Referring Unavailable Oleghe, Efewongbe Primary Care Unavailable Oleghe, Efewongbe Primary Care Unavailable Balaji Parker Attending Unavailable Oleghe, Efewongbe Primary Care Unavailable Jerzy Cast Attending Unavailable Jerzy Cast Referring Unavailable Oleghe, Efewongbe Primary Care Unavailable Jerzy Cast Attending Unavailable Jerzy Cast Referring Unavailable Ganta, Olivia Primary Care Unavailable Bryce Veras Referring Unavailable Byrce Veras Attending Unavailable Oleghe, Efewongbe Primary Care Unavailable Oleghe, Efewongbe Attending Unavailable Oleghe, Efewongbe Referring Unavailable Oleghe, Efewongbe Primary Care Unavailable Brayan Reed Attending Unavailable Jerzy Cast Referring Unavailable Ganta, Olivia Primary Care Unavailable Ganta, Olivia Referring Unavailable Oleghe, Efewongbe Attending Unavailable Vitor Calhoun Attending Unavailable Oleghe, Efewongbe Primary Care Unavailable Oleghe, Efewongbe Referring Unavailable Elan De Anda Attending Unavailable Ganta, Olivia Primary Care Unavailable Justo Hernandez Attending Unavailable Ganta, Olivia Primary Care Unavailable Ganta, Olivia Referring Unavailable Balaji Parker Attending Unavailable Ganta, Olivia Primary Care Unavailable Ganta, Olivia Primary Care Unavailable Blade Maddox Attending Unavailable David Espinoza Attending Unavailable Oleghe, Efewongbe Primary Care Unavailable Allergies Allergy Classification Reported Allergen(s) Allergy Type Date of Onset Reaction(s) Facility (1 source) HYDROcodone Drug Allergy 08-18-2024 [facility] Repository Medications Current Medications Medication Drug Class(es) Dates Sig (Normalized) Sig (Original) acyclovir 400 mg oral tablet (3 sources) Herpesvirus Nucleoside Analog DNA Polymerase Inhibitor, Herpes Simplex Virus Nucleoside Analog DNA Polymerase Inhibitor, Herpes Zoster Virus Nucleoside Analog DNA Polymerase Inhibitor Start: 06-16-2022 End: 06-21-2022 take 1 tablet by mouth five times daily acyclovir (ZOVIRAX) 400 mg tablet Indications: Recurrent cold sores Take 1 tablet by mouth five times daily for 5 days. 25 tablet 0 06/16/2022 06/21/2022 Active Start: 10-15-2020 End: 06-19-2021 take 1 tablet by mouth three times daily, then take 1 tablet by mouth twice daily acyclovir (ZOVIRAX) 400 mg tablet Indications: Recurrent cold sores Take 1 tablet by mouth three times daily for 10 days, THEN 1 tablet twice daily. 90 tablet 7 10/15/2020 06/19/2021 Discontinued Comment on above: Take 1 tablet by adriana th three times daily for 10 days, THEN 1 tablet twice daily. Take 1 tablet by adriana five times daily for 5 days. [id number] 200 actuat albuterol 0.09 mg/actuat metered dose inhaler (20 sources) beta2-Adrenergic Agonist Start: End: take 2-4 puff(s) by inhalation every two hours as needed for wheezing albuterol HFA (PROVENTIL HFA, VENTOLIN HFA) 90 mcg/actuation inhaler Indications: COPD with exacerbation (HCC) Inhale 2-4 Puffs as instructed every 2 hours as needed for wheezing/shortness of breath. 8 g 06/16/2022 Active Start: 05-14-2021 take 2 puff(s) by in halation every four hours as needed albuterol HFA (VENTOLIN HFA) 90 mcg/actuation inhaler Indications: Chronic obstructive pulmonary disease, unspecified COPD type (HCC) Inhale 2 Puffs as instructed every 4 hours as needed. 18 g 05/14/2021 Active Start: 03-05-2020 End: 01-16-2021 take 2 puff(s) by inhalation every four hours as needed albuterol HFA (VENTOLIN HFA) 90 mcg/actuation inhaler Indications: Chronic obstructive pulmonary disease, unspecified COPD type (HCC) Inhale 2 Puffs as instructed every 4 hours as needed. 18 g 3 03/05/2020 01/16/2021 Discontinued Comment on above: Inhale 2 Puffs as in structed every 4 hours as needed. Inhale 2-4 Puffs as instructed every 2 hours as needed for wheezing/shortness of breath. amoxicillin 875 mg oral tablet (2 sources) Penicillin-class Antibacterial Start: 05-29-19 End: 06-05-19 take 1 tablet by mouth twice daily amoxicillin (AMOXIL) 875 mg tablet Indications: Other acute nonsuppurative otitis media of left ear, recurrence not specified Take 1 tablet by mouth twice daily for 7 days. 14 tablet 0 05/28/2022 06/04/2022 Active Comment on above: Take 1 tablet by adriana th twice daily for 7 days. azithromycin 250 mg oral tablet (1 source) Macrolide Antimicrobial Start: 06-17-19 End: 06-22-19 azithromycin (ZITHROMAX Z-OSKAR) 250 mg tablet Indications: COPD with exacerbation (HCC) Take 2 tablets day one, then, 1 tablet daily until gone. Take with food 6 tablet 0 06/16/2022 06/21/2022 Active Comment on above: Take 2 tablets day o ne, then, 1 tablet daily until gone. Take with food doxycycline hyclate 100 mg oral tablet (1 source) Tetracycline-class Drug Start: 06-05-19 End: 06-15-19 take 1 tablet by mouth twice daily doxycycline (VIBRA-TABS) 100 mg tablet Take 1 tablet by mouth twice daily for 10 days. 20 tablet 0 06/04/2022 06/14/2022 Active Comment on above: Take 1 tablet by adriana th twice daily for 10 days. ibuprofen 800 mg oral tablet (4 sources) Nonsteroidal Anti-inflammatory Drug Start: 04-06-19 End: 04-17-19 take 1 tablet by mouth every eight hours at mealtime ibuprofen (MOTRIN) 800 mg tablet Indications: Rupture of left gastrocnemius tendon, subsequent encounter Take 1 tablet by mouth every 8 hours. Take with food. 90 tablet 2 04/17/2023 Active Comment on above: Take 1 tablet by adriana th every 8 hours. Take with food. Completed/Discontinued Medications Medication Drug Class(es) Dates Sig (Normalized) Sig (Original) acetaminophen 325 mg oral tablet (12 sources) End: 06-16-2022 take 2 tablets by mouth every six hours as needed acetaminophen (TYLENOL) 325 mg tablet Take 650 mg by mouth every 6 hours as needed. 06/16/2022 Discontinued Comment on above: Take 650 mg by mouth every 6 hours as needed. ARIPiprazole 5 mg oral tablet (4 sources) Atypical Antipsychotic take 1 tablet by mouth once daily ARIPiprazole (ABILIFY) 5 mg tablet Take 5 mg by mouth once daily. 0 Active Comment on above: Take 5 mg by mouth o nce daily. benzonatate 100 mg oral capsule (4 sources) Non-narcotic Antitussive Start: 06-16-2022 take 1-2 capsules by mouth three times daily as needed for cough benzonatate (TESSALON PERLES) 100 mg capsule Indications: COPD with exacerbation (HCC) Take 1-2 capsules by mouth three times daily as needed for cough. 60 capsule 1 06/16/2022 Active Start: 03-07-2020 End: 06-19-2021 take 1 capsule by mouth every eight hours as needed Benzonatate 200 mg capsule Take 1 capsule by mouth three times daily as needed. 21 capsule 03/07/2020 06/19/2021 Discontinued Comment on above: Take 1 capsule by mo [facility] three times daily as needed. Take 1-2 capsules by mouth three times daily as needed for cough. 24 hr buPROPion hydrochloride 300 mg extended release oral tablet (3 sources) Aminoketone Start: 2 End: 2 take 1 tablet by mouth once daily buPROPion XL (WELLBUTRIN XL) 300 mg 24 hr tablet Take 1 tablet by mouth once daily. 30 tablet 2 04/08/2021 06/19/2021 Discontinued Start: 06-08-2020 End: 10-09-2020 take 1 tablet by mouth once daily buPROPion XL (WELLBUTRIN XL) 150 mg 24 hr tablet Indications: Anxiety and depression , Episode of recurrent major depressive disorder, unspecified depression episode severity (HCC) Take 1 tablet by mouth once daily. 30 tablet 2 06/08/2020 10/09/2020 Discontinued Comment on above: Take 1 tablet by adriana once daily. cyclobenzaprine hydrochloride 10 mg oral tablet (1 source) Muscle Relaxant Start: End: take 1 tablet by mouth three times daily as needed for muscle spasms cyclobenzaprine (FLEXERIL) 10 mg tablet Indications: Acute exacerbation of chronic low back pain Take 1 tablet by mouth three times daily as needed for Muscle Spasm. 30 tablet 1 06/25/2020 10/15/2020 Discontinued diazePAM 5 mg oral tablet (2 sources) Benzodiazepine Start: End: diazePAM (VALIUM) 5 mg tablet Take 1 tablet by mouth as needed. 07/21/2020 06/19/2021 Discontinued Comment on above: Take 1 tablet by adriana th as needed. docusate sodium 100 mg oral capsule (11 sources) Start: End: take 1 capsule by mouth twice daily docusate sodium (STOOL SOFTENER) 100 mg capsule Take 1 capsule by mouth twice daily. 60 capsule 5 12/12/2020 06/16/2022 Discontinued Comment on above: Take 1 capsule by mo [facility] twice daily. 12 hr fexofenadine hydrochloride 60 mg / pseudoephedrine hydrochloride 120 mg extended release oral tablet (3 sources) alpha-Adrenergic Agonist, Histamine-1 Receptor Antagonist Start: End: take 1 tablet by mouth twice daily fexofenadine-pseudoep hedrine (PILY D) 60-120 mg per tablet Take 1 tablet by mouth twice daily. 30 tablet 3 06/19/2018 06/19/2021 Discontinued Comment on above: Take 1 tablet by adriana twice daily. FLUoxetine 40 mg oral capsule (3 sources) Serotonin Reuptake Inhibitor Start: End: take 1 capsule by mouth once daily FLUoxetine HCl (PROZAC) 40 mg capsule Indications: Anxiety and depression , Episode of recurrent major depressive disorder, unspecified depression episode severity (HCC) Take 1 capsule by mouth once daily. 30 capsule 2 04/08/2021 06/19/2021 Discontinued Start: 06-08-2020 End: 10-09-2020 take 1 capsule by mouth once daily FLUoxetine HCl (PROZAC) 40 mg capsule Indications: Anxiety and depression , Episode of recurrent major depressive disorder, unspecified depression episode severity (HCC) Take 1 capsule by mouth once daily. 30 capsule 2 06/08/2020 10/09/2020 Discontinued Comment on above: Take 1 capsule by mo uth once daily. fluticasone / salmeterol (12 sources) Corticosteroid, beta2-Adrenergic Agonist Start: 01-16-2021 End: 04-06-2023 take 1 puff(s) by mouth twice daily fluticasone-salmeterol (ADVAIR DISKUS) 250-50 mcg/dose inhaler Indications: COPD with exacerbation (HCC) , Chronic obstructive pulmonary disease, unspecified COPD type (HCC) Inhale 1 Puff as instructed twice daily. Rinse and gargle mouth after use with water. 60 Each 01/16/2021 04/06/2023 Discontinued Start: 01-16-2021 take 1 puff(s) by mo uth twice daily fluticasone-salmeterol (ADVAIR DISKUS) 250-50 mcg/dose inhaler Indications: COPD with exacerbation (HCC) , Chronic obstructive pulmonary disease, unspecified COPD type (HCC) Inhale 1 Puff as instructed twice daily. Rinse and gargle mouth after use with water. 60 Each 0 01/16/2021 Active Start: 01-16-2021 take 1 puff(s) by mo uth twice daily fluticasone-salmeterol (ADVAIR DISKUS) 250-50 mcg/dose inhaler Indications: COPD with exacerbation (HCC) , Chronic obstructive pulmonary disease, unspecified COPD type (HCC) Inhale 1 Puff as instructed twice daily. Rinse and gargle mouth after use with water. 60 Each 0 01/16/2021 Active Start: 01-17-2020 End: 01-16-2021 take 1 puff(s) by mouth twice daily fluticasone-salmeterol (ADVAIR DISKUS) 250-50 mcg/dose Indications: Chronic obstructive pulmonary disease, unspecified COPD type (HCC) Inhale 1 Puff as instructed twice daily. Rinse and gargle mouth after use with water. 60 Each 1 01/17/2020 01/16/2021 Discontinued Comment on above: Inhale 1 Puff as ins tructed twice daily. Rinse and gargle mouth after use with water. hydrOXYzine hydrochloride 25 mg oral tablet (2 sources) Antihistamine Start: 2020 End: 2021 take 25-50 mg by mouth every eight hours as needed hydrOXYzine HCl (ATARAX) 25 mg tablet Take 1-2 tablets by mouth three times daily as needed. 90 tablet 1 11/19/2020 06/19/2021 Discontinued Comment on above: Take 1-2 tablets by mouth three times daily as needed. ketorolac tromethamine 10 mg oral tablet (2 sources) Nonsteroidal Anti-inflammatory Drug, Cyclooxygenase Inhibitor Start: 2020 End: 2021 take 1 tablet by mouth three times daily keTORolac (TORADOL) 10 mg tablet Take 1 tablet by mouth three times daily. 07/21/2020 06/19/2021 Discontinued Comment on above: Take 1 tablet by adriana th three times daily. lurasidone hydrochloride 20 mg oral tablet (3 sources) Atypical Antipsychotic Start: 2019 End: 2021 take 1 tablet by mouth once daily at bedtime lurasidone (LATUDA) 20 mg tablet Indications: Bipolar 1 disorder (HCC) , Anxiety disorder, unspecified type Take 1 tablet by mouth daily at bedtime. 30 tablet 2 01/09/2020 06/19/2021 Discontinued Comment on above: Take 1 tablet by adriana th daily at bedtime. omeprazole 20 mg delayed release oral capsule (3 sources) Proton Pump Inhibitor Start: 2019 End: 2021 take 1 capsule by mouth once daily before breakfast omeprazole (PRILOSEC) 20 mg capsule Indications: gastroesophageal reflux disease , heartburn Take 1 capsule by mouth daily before breakfast. 30 capsule 2 12/05/2019 06/19/2021 Discontinued Comment on above: Take 1 capsule by mo ut daily before breakfast. ondansetron 8 mg disintegrating oral tablet (20 sources) Serotonin-3 Receptor Antagonist Start: 2022 take 1 tablet by mouth every eight hours as needed for nausea and nausea ondansetron orally disintegrating (ZOFRAN ODT) 8 mg disintegrating tablet Indications: Nausea Take 1 tablet by mouth every 8 hours as needed for nausea/vomiting. DOSE CHANGE, TAKE ONE 24 tablet 0 06/16/2022 Active Start: 05-28-2022 End: 06-16-2022 take 1 tablet by mouth every six hours as needed for nausea and nausea ondansetron orally disintegrating (ZOFRAN ODT) 4 mg disintegrating tablet Indications: Nausea Take 1 tablet by mouth every 6 hours as needed for nausea/vomiting. 24 tablet 1 06/03/2022 06/16/2022 Discontinued Start: 03-05-2022 take 1 tablet by adriana th every six hours as needed ondansetron orally disintegrating (ZOFRAN ODT) 4 mg disintegrating tablet Take 1 tablet by mouth every 6 hours as needed for nausea/vomiting. 18 tablet 0 03/05/2022 Active Start: 11-01-2021 End: 11-16-2021 take 1 tablet by mouth every six hours as needed ondansetron orally disintegrating (ZOFRAN ODT) 4 mg disintegrating tablet Take 1 tablet by mouth every 6 hours as needed for nausea/vomiting for up to 15 days. 15 tablet 0 11/01/2021 11/16/2021 Active Start: 01-16-2021 End: 08-09-2021 take 1 tablet by mouth every eight hours as needed ondansetron orally disintegrating (ZOFRAN ODT) 4 mg disintegrating tablet Take 1 tablet by mouth every 8 hours as needed for nausea/vomiting. 20 tablet 2 08/09/2021 Active Start: 09-27-2018 End: 07-04-2020 take 1 tablet by mouth every eight hours as needed ondansetron orally disintegrating (ZOFRAN ODT) 4 mg disintegrating tablet Take 1 tablet by mouth every 8 hours as needed for Nausea/Vomiting. 20 tablet 1 09/27/2018 07/04/2020 Discontinued Comment on above: Take 1 tablet by adriana th every 8 hours as needed for nausea/vomiting. Take 1 tablet by adriana th every 6 hours as needed for nausea/vomiting for up to 15 days. Take 1 tablet by adriana th every 6 hours as needed for nausea/vomiting. Take 1 tablet by adriana th every 8 hours as needed for nausea/vomiting. DOSE CHANGE, TAKE ONE 24 hr oxybutynin chloride 10 mg extended release oral tablet (3 sources) Cholinergic Muscarinic Antagonist Start: End: take 1 tablet by mouth once daily oxybutynin ER (DITROPAN XL) 10 mg 24 hr tablet Indications: Urinary frequency Take 1 tablet by mouth once daily. 30 tablet 2 06/08/2020 06/19/2021 Discontinued Comment on above: Take 1 tablet by adriana th once daily. microencapsulated potassium chloride 20 meq extended release oral tablet (3 sources) Start: End: take 1 tablet by mouth twice daily potassium chloride ER (KLOR-CON M20) 20 mEq tablet Indications: Hypokalemia Take 1 tablet by mouth twice daily. 30 tablet 3 09/27/2018 06/19/2021 Discontinued Comment on above: Take 1 tablet by adriana th twice daily. predniSONE 10 mg oral tablet (8 sources) Start: 022 End: 023 predniSONE (DELTASONE) 10 mg tablet Indications: COPD with exacerbation (HCC) Take 4 tabs daily for 3 days, then 2 tabs daily for 3 days, then 1 tab daily for 3 days with food. 21 tablet 0 06/16/2022 Active Start: 05-14-2021 End: 06-19-2021 predniSONE (DELTASONE) 10 mg tablet Take 4 tabs daily for 3 days, then 2 tabs daily for 3 days, then 1 tab daily for 3 days with food. 21 tablet 05/14/2021 06/19/2021 Discontinued Comment on above: Take 4 tabs daily fo r 3 days, then 2 tabs daily for 3 days, then 1 tab daily for 3 days with food. ramelteon 8 mg oral tablet (4 sources) Melatonin Receptor Agonist Start: 05-27-19 23 take 1 tablet by mouth once daily at bedtime ramelteon (ROZEREM) 8 mg tablet Take 8 mg by mouth daily at bedtime. 0 05/26/2022 Active Comment on above: Take 8 mg by mouth d aily at bedtime. traZODone hydrochloride 50 mg oral tablet (10 sources) Serotonin Reuptake Inhibitor Start: 06-20-19 End: 06-17-19 23 take 1 tablet by mouth once daily at bedtime traZODone (DESYREL) 50 mg tablet Take 1 tablet by mouth daily at bedtime. 30 tablet 5 06/19/2021 06/16/2022 Discontinued Comment on above: Take 1 tablet by adriana daily at bedtime. valACYclovir 500 mg oral tablet (1 source) Herpesvirus Nucleoside Analog DNA Polymerase Inhibitor, Herpes Simplex Virus Nucleoside Analog DNA Polymerase Inhibitor, Herpes Zoster Virus Nucleoside Analog DNA Polymerase Inhibitor Start: 01-31-20 End: 10-16-19 21 take 1 tablet by mouth once daily valACYclovir (VALTREX) 500 mg tablet Indications: Recurrent cold sores Take 1 tablet by mouth once daily. 30 tablet 11 01/31/2020 10/15/2020 Discontinued 24 hr venlafaxine 75 mg extended release oral capsule (10 sources) Serotonin and Norepinephrine Reuptake Inhibitor Start: 06-20-19 End: 06-17-19 23 take 1 capsule by mouth once daily venlafaxine ER (EFFEXOR XR) 75 mg 24 hr capsule Take 1 capsule by mouth once daily. 30 capsule 5 06/19/2021 06/16/2022 Discontinued Comment on above: Take 1 capsule by mo ut once daily. Problems Active Problems Problem Classification Problem Date Documented Da te Episodic/Chronic Anxiety disorders (20 sources) Mixed anxiety and depressive disorder; Translations: [Anxiety disorder, unspecified] Onset: 10-22-2016 Chronic Chronic obstructive pulmonary disease and bronchiectasis (18 sources) Chronic obstructive lung disease; Translations: [Chronic obstructive pulmonary disease, unspecified] Chronic Menstrual disorders (1 source) Amenorrhea; Translations: [Amenorrhea, unspecified] Chronic Other connective tissue disease (1 source) Pain in left leg; Translations: [Left leg pain] Onset: 04-08-2023 Episodic Other gastrointestinal disorders (15 sources) Irritable bowel syndrome; Translations: [Irritable bowel syndrome without diarrhea] Onset: 10-22-2016 10-22-2016 Chronic Other injuries and conditions due to external causes (1 source) Unspecified injury of unspecified Achilles tendon, initial encounter; Translations: [Injury of Achilles tendon, initial encounter] Onset: 04-08-2023 Episodic Other nervous system disorders (1 source) Other chronic pain; Translations: [Other chronic pain] Onset: 12-15-2023 Chronic Other non-traumatic joint disorders (1 source) Hip pain; Translations: [Pain in right hip] 07-04-2020 Episodic Other nutritional; endocrine; and metabolic disorders (1 source) Morbid (severe) obesity due to excess calories; Translations: [Morbid (severe) obesity due to excess calories] Onset: 01-11-2024 Chronic Other nutritional; endocrine; and metabolic disorders (1 source) Weight gain; Translations: [Abnormal weight gain] Episodic Residual codes; unclassified (2 sources) Hypersomnia, unspecified; Translations: [Hypersomnia, unspecified] Onset: 01-25-2024 Chronic Residual codes; unclassified (1 source) Tobacco user; Translations: [Tobacco use] Episodic Residual codes; unclassified (1 source) Insomnia; Translations: [Insomnia, unspecified] Episodic Schizophrenia and other psychotic disorders (1 source) Schizoaffective disorder, bipolar type; Translations: [Schizoaffective disorder, bipolar type] Onset: 08-18-2024 Chronic Spondylosis; intervertebral disc disorders; other back problems (2 sources) Other intervertebral disc degeneration, lumbar region; Translations: [Other cervical disc degeneration, mid-cervical region, unspecified level] Onset: 12-15-2023 Chronic Spondylosis; intervertebral disc disorders; other back problems (4 sources) Chronic low back pain; Translations: [Acute exacerbation of chronic low back pain] Onset: 12-15-2023 07-04-2020 Episodic Unclassified (1 source) Cough, unspecified; Translations: [Cough, unspecified] Onset: 06-26-2024 Unclassified (1 source) Low back pain, unspecified; Translations: [Low back pain, unspecified] Onset: 03-15-2024 Past or Other Problems Problem Classification Problem Date Documented Date Episodic/Chronic Allergic reactions (1 source) Dermatitis, unspecified; Translations: [Dermatitis, unspecified] Onset: 01-11-2024 Episodic Cancer of cervix (15 sources) Atypical squamous cells of undetermined significance on cervical Papanicolaou smear; Translations: [Atypical squamous cells of undetermined significance on cytologic smear of cervix (ASC-US)] Onset: 11-03-2017 11-03-2017 Episodic Immunizations and screening for infectious disease (8 sources) Patient encounter status; Translations: [Encounter for screening for human immunodeficiency virus [HIV]] Onset: 01-11-2024 Episodic Nausea and vomiting (3 sources) Nausea; Translations: [Nausea] Onset: 04-27-2024 Episodic Other connective tissue disease (1 source) Pain in right lower leg; Translations: [Pain in right lower leg] Onset: 05-10-2024 Episodic Other lower respiratory disease (1 source) Shortness of breath; Translations: [Shortness of breath] Onset: 12-24-2023 Episodic Other non-traumatic joint disorders (1 source) Pain in right ankle and joints of right foot; Translations: [Pain in right ankle and joints of right foot] Onset: 05-06-2024 Episodic Other screening for suspected conditions (not mental disorders or infectious disease) (1 source) Encounter for screening for cardiovascular disorders; Translations: [Encounter for screening for cardiovascular disorders] Onset: 02-01-2024 Episodic Sprains and strains (19 sources) Strain of neck muscle; Translations: [Strain of muscle, fascia and tendon at neck level, initial encounter] Onset: 04-17-2020 04-17-2020 Episodic Unclassified (1 source) Patient encounter status 07-05-2024 Viral infection (17 sources) Recurrent herpes simplex labialis; Translations: [Herpesviral vesicular dermatitis] Onset: 10-22-2016 10-22-2016 Episodic Results Test Name Value Interpretation Reference Range Facility MR/BMSGroverBPon 08-18-2024 MR/BMS.BP [address], [address] [place] [address] OFFICE VISIT Date of Service: 08/18/24 MR#: [id number] Acct: [id number] Name: TRACY LIZARRAGA Rep #: [id number] : 1975 Provider: Dr. Balaji Hodgson se, DO Age/Sex: 49/F Location: [facility].BP Status: Signed Intake Vital Signs 05/19/24 15:00 08/08/24 17:08 08/18/24 16:02 Height 5 ft 3 in 5 ft 3 in 5 ft 3 in Weight: 253 lb BMI 44.8 BP 115/79 Blood Pressure Location Lt brachial Position Sitting Respiration 16 Pulse 69 Pulse Source Monitor BP Intake Visit Reasons: 3 M FU Accompanied by: Self Allergies hydrocodone Allergy (Intermediate, Verified 08/18/24 16:04) Hives Medications ???Medication ???Instructions ???Recorded ???Confirmed ???Type acetaminophen 500 mg tablet 1,000 mg PO Q8H PRN Pain 07/05/21 08/18/24 History siiwemhu-waaq-dnu-iron 18 mg-folic 1 tab PO DAILY SUPPLEMENT 08/18/24 History 240 mcg-vit K 120 mcg-herbal tablet ([employer]) ipratropium 0.5 mg-albuterol 3 mg 3 ml inhalation Q4H.RT #180 mL 08/18/24 Rx (2.5 mg base)/3 mL nebulization soln nebulizer and compressor #1 ea 06/27/23 05/19/24 Rx sumatriptan succinate 25 mg tablet See Rx Instructions PO .COMPLEX 03/30/24 08/18/24 Rx (Imitrex) #10 tabs albuterol sulfate 90 mcg/actuation 1 - 2 puff inhalation Q4H PRN MT N 04/25/24 08/18/24 Rx aerosol inhaler (Ventolin HFA) Wheezing ##1 ibuprofen 800 mg tablet 800 mg PO TID PRN pain #30 tabs 08/18/24 Rx albuterol sulfate 2.5 mg/3 mL 2.5 mg (3 mL) inhalation Q4H PRN 0 06/26/24 08/18/24 Rx (0.083 %) solution for nebulization #25 vials clonazepam 1 mg tablet 1 mg PO DAILY PRN anxiety 15 days 07/11/24 08/18/24 Rx #15 tabs acyclovir 800 mg tablet 800 mg PO BID 15 days #30 tabs 08/18/24 Rx cariprazine 3 mg capsule 3 mg PO DAILY #30 caps 08/18/24 Rx quetiapine 50 mg tablet 50 mg PO QHS sleep/mood #30 tabs 0 08/18/24 08/18/24 Rx PFSH Medical History Migraine Screening for cardiovascular condition Morbid obesity Hypersomnolence Dermatitis Breast cyst Schizoaffective disorder, bipolar type History of herniated intervertebral disc Wears glasses Schizophrenia Bipolar disorder Alcohol use Easy bruising Hepatitis Injury of back Peptic ulcer History of IBS Smoker MARIA INES (obstructive sleep apnea) Shortness of breath on exertion Chronic cough Leg cramps History of stress test Hx of degenerative disc disease Herniated cervical disc Lumbar radicular pain COPD (chronic obstructive pulmonary disease) Chronic pain Ulnar nerve laceration Carpal tunnel syndrome COPD exacerbation Polysubstance abuse Tobacco use (Unknown) Asthma Anxiety Hepatitis C Surgical History History of back surgery History of lumbar laminectomy History of back surgery History of decompression of ulnar nerve History of cholecystectomy History of appendectomy History of tubal ligation Family History Mother Anemia Asthma Arthritis Emotional disorder Bleeding disorder COPD (chronic obstructive pulmonary disease) Father Myocardial infarction Prostate cancer Social History adopted: No household members: significant other housing: house number of children: 3 current occupational status: employed current occupation: [employer] pets and animals: Yes pets and animals: cat(s) and dog(s) sexually active: Yes Smoking Status: Current every day smoker tobacco type: cigarettes and e-cigarettes Tobacco: How many years used: 20 alcohol intake: never substance use type: does not use caffeine: Yes (2) Type: carbonated beverages and coffee what type of physical activity do you participate in: none do you feel safe at home: Yes HPI History of Present Illness History provided by: patient HPI: Tracy Lizarraga is a 49 year old female who presents today for follow up evaluation. Patient reports to having been again under stress. Significant other has again been more irritable and agitated. Had her brother recently pick her up and take her away from house for 2 days, but she has since returned home. Reports to feeling alienated from others because of him. Is again considering leaving with a coworker. Has been feeling much more anxious at work. Has been feeling more depressed as well. Feels like everything gets under her skin. Is feeling burned out. Denies feeling suicidal. Has stopped trying to work on getting her [employer] driver's license. Sleep has been somewhat poor. Having difficulty going to sleep and waking up 1-2x per night. Had (more content not included)... [facility] Emergency Department Summary on 08-08-2024 Emergency Department Summary [facility] Medical Records Department [address] [place] [address] Emergency Department Summary 08/08/24 MR#: [id number] Acct: [id number] Name: TRACY LIZARRAGA Rep #: [id number] : 1975 49 From: Stanton Car MD PCP: Dr. Juve Brown MD Status:REG ER Location: ED HPI History of Present Illness Chief Complaint: Back Informant: patient Onset/Context/Timing Onset: Days Context: Gradual Onset Injury: lifting, bending and repetitive motion Timing: Continuous Quality: Sharp Location: Lumbar and Right Leg Current Severity: Moderate Maximum Severity: Severe Worsened by: improves with Movement and Bending Relieved by: Remaining Still Associated Symptoms Associated Symptoms: Radiation to Right Leg; Negative for Numbness, Tingling, Fever, Abdominal Pain, Dysuria, Unable to Ambulate, Unable to Transfer, Urinary Retention, Urinary Incontinence, Constipation or Fecal Incontinence Narrative Narrative: 49-year-old female history of degenerative disc disease with prior L3-4 and 5 laminectomy. That was about 3 years ago. 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 Denies any fall injury or trauma. No fever. States she is aggravated her lower back with radiation going her right buttock and right hamstring. No fever. No bowel or bladder incontinence. No retention. No leg weakness. She came in today to be evaluated. Prior similar symptoms: Yes Recent Illness/Hospitalization: No PFSH PFSH Medical History Migraine Screening for cardiovascular condition Morbid obesity Hypersomnolence Dermatitis Breast cyst Schizoaffective disorder, bipolar type History of herniated intervertebral disc Wears glasses Schizophrenia Bipolar disorder Alcohol use Easy bruising Hepatitis Injury of back Peptic ulcer History of IBS Smoker MARIA INES (obstructive sleep apnea) Shortness of breath on exertion Chronic cough Leg cramps History of stress test Hx of degenerative disc disease Herniated cervical disc Lumbar radicular pain COPD (chronic obstructive pulmonary disease) Chronic pain Ulnar nerve laceration Carpal tunnel syndrome COPD exacerbation Polysubstance abuse Tobacco use (Unknown) Asthma Anxiety Hepatitis C Home Medications ???Medication ???Instructions ???Recorded ???Last Taken ???Type acetaminophen 500 mg tablet 1,000 mg PO Q8H PRN Pain 07/05/21 06/26/23 History zinlxlfl-skqt-ehs-iron 18 mg-folic 1 tab PO DAILY SUPPLEMENT 06/26/23 History 240 mcg-vit K 120 mcg-herbal tablet ([employer]) ipratropium 0.5 mg-albuterol 3 mg 3 ml inhalation Q4H.RT #180 mL Unknown Rx (2.5 mg base)/3 mL nebulization soln nebulizer and compressor #1 ea 06/27/23 Unknown Rx sumatriptan succinate 25 mg tablet See Rx Instructions PO .COMPLEX 03/30/24 Unknown Rx (Imitrex) #10 tabs albuterol sulfate 90 mcg/actuation 1 - 2 puff inhalation Q4H PRN MT N 04/25/24 Unknown Rx aerosol inhaler (Ventolin HFA) Wheezing ##1 ibuprofen 800 mg tablet 800 mg PO TID PRN pain #30 tabs Unknown Rx cariprazine 3 mg capsule 3 mg PO DAILY #30 caps 05/19/24 Un known Rx quetiapine 25 mg tablet 25 mg PO QHS sleep/mood #30 tabs 0 05/19/24 Unknown Rx albuterol sulfate 2.5 mg/3 mL 2.5 mg (3 mL) inhalation Q4H PRN 0 06/26/24 Unknown Rx (0.083 %) solution for nebulization #25 vials clonazepam 1 mg tablet 1 mg PO DAILY PRN anxiety 15 days 07/11/24 Unknown Rx #15 tabs acyclovir 800 mg tablet 800 mg PO BID 15 days #30 tabs Unknown Rx metaxalone 800 mg tablet 800 mg PO TID #21 tabs 08/08/24 Un known Rx oxycodone-acetaminophen 5 mg-325 1 tab PO Q6H PRN PRN pain 3 days 0 08/08/24 Unknown Rx mg tablet #12 TABLETS prednisone 50 mg tablet 50 mg PO DAILY 7 days #7 tabs 07/21 12/15 Unknown Rx Allergy/AdvReac Type Severity Reaction Status Date / Time hydrocodone Allergy Intermediate Hives Verified 08/08/24 17:08 Family History Mother Anemia Asthma Arthritis Emotional disorder Bleeding disorder COPD (chronic obstructive pulmonary disease) Father Myocardial infarction Prostate cancer Surgical History History of back surgery History of lumbar laminectomy History of back surgery History of decompression of ulnar nerve History of cholecystectomy History of appendectomy History of tubal ligation Social History adopted: No household members: significant other housing: house number of children: 3 current occupational status: employed current occupation: [employer] pets and animals: Yes pets an (more content not included)... [facility] Urgent Care Visit Reporton 0 06-26-2024 Urgent Care Visit Report [facility] [address], [address] [place] [address] OFFICE VISIT Date of Service: 06/26/24 MR#: [id number] Acct: [id number] Name: TRACY LIZARRAGA Rep #: [id number] : 1975 Provider: RITCHIE bearden Age/Sex: 49/F Location: [facility].NOW Status: Signed Intake Vital Signs 05/19/24 15:00 06/26/24 13:14 Height 5 ft 3 in 5 ft 3 in Weight: 254 lb 4 oz BMI 45.0 BP 111/78 118/68 Blood Pressure Location Lt brachial Lt brachial Position Sitting Sitting Respiration 16 17 Pulse 79 83 Pulse Source Monitor NIBP Temp 98.3 F Temp Source Oral Pulse Oximetry (%) 94 Oxygen Delivery Method room air Intake Visit Reasons: COUGH, CHEST CONGESTION Chief Complaint: cough, congestion, nausea, diarrhea Weight Reducing Technician Required: No Is patient in pain?: No Allergies hydrocodone Allergy (Intermediate, Verified 06/26/24 13:15) Hives Medications ???Medication ???Instructions ???Recorded ???Confirmed ???Type acetaminophen 500 mg tablet 1,000 mg PO Q8H PRN Pain 07/05/21 06/26/24 History quurqrcr-fwya-guj-iron 18 mg-folic 1 tab PO DAILY SUPPLEMENT 06/26/24 History 240 mcg-vit K 120 mcg-herbal tablet ([employer]) ipratropium 0.5 mg-albuterol 3 mg 3 ml inhalation Q4H.RT #180 mL 06/26/24 Rx (2.5 mg base)/3 mL nebulization soln nebulizer and compressor #1 ea 06/27/23 05/19/24 Rx sumatriptan succinate 25 mg tablet See Rx Instructions PO .COMPLEX 03/30/24 06/26/24 Rx (Imitrex) #10 tabs albuterol sulfate 90 mcg/actuation 1 - 2 puff inhalation Q4H PRN MT N 04/25/24 06/26/24 Rx aerosol inhaler (Ventolin HFA) Wheezing ##1 ibuprofen 800 mg tablet 800 mg PO TID PRN pain #30 tabs 06/26/24 Rx cariprazine 3 mg capsule 3 mg PO DAILY #30 caps 05/19/24 Rx clonazepam 1 mg tablet 1 mg PO DAILY PRN anxiety 15 days 05/19/24 06/26/24 Rx #15 tabs quetiapine 25 mg tablet 25 mg PO QHS sleep/mood #30 tabs 0 05/19/24 06/26/24 Rx albuterol sulfate 2.5 mg/3 mL 2.5 mg (3 mL) inhalation Q4H PRN 0 06/26/24 06/26/24 Rx (0.083 %) solution for nebulization #25 vials doxycycline hyclate 100 mg capsule 100 mg PO BID 7 days #14 caps 06/26/24 Rx ondansetron 4 mg disintegrating 4 mg PO Q8H PRN nausea and 5 06/26/24 Rx tablet vomiting 7 days #21 tabs prednisone 20 mg tablet 40 mg (2 x 20 mg) PO QDAY 5 days 0 06/26/24 06/26/24 Rx #10 tabs Is last menstrual period known: No Post menopausal: No Patient : No Have you fallen in the past year?: No Nurse's Note: cough, congestion, nausea, diarrhea x 3 days. exposed to flu at work, concern for same. [facility] Medical History Migraine Screening for cardiovascular condition Morbid obesity Hypersomnolence Dermatitis Breast cyst Schizoaffective disorder, bipolar type History of herniated intervertebral disc Wears glasses Schizophrenia Bipolar disorder Alcohol use Easy bruising Hepatitis Injury of back Peptic ulcer History of IBS Smoker MARIA INES (obstructive sleep apnea) Shortness of breath on exertion Chronic cough Leg cramps History of stress test Hx of degenerative disc disease Herniated cervical disc Lumbar radicular pain COPD (chronic obstructive pulmonary disease) Chronic pain Ulnar nerve laceration Carpal tunnel syndrome COPD exacerbation Polysubstance abuse Tobacco use (Unknown) Asthma Anxiety Hepatitis C Surgical History History of back surgery History of lumbar laminectomy History of back surgery History of decompression of ulnar nerve History of cholecystectomy History of appendectomy History of tubal ligation Family History Mother Anemia Asthma Arthritis Emotional disorder Bleeding disorder COPD (chronic obstructive pulmonary disease) Father Myocardial infarction Prostate cancer Social History adopted: No household members: significant other housing: house number of children: 3 current occupational status: employed current occupation: [employer] pets and animals: Yes pets and animals: cat(s) and dog(s) sexually active: Yes Smoking Status: Current every day smoker tobacco type: cigarettes and e-cigarettes Tobacco: How many years used: 20 alcohol intake: never substance use type: does not use caffeine: Yes (2) Type: carbonated beverages and coffee what type of physical activity do you participate in: none do you feel safe at home: Yes HPI HPI Chief Complaint: cough, congestion, nausea, diarrhea Details: TRACY LIZARRAGA, is a 49 F who presents to the office today for concern (more content not included)... [facility] MR/BMS.BPon 05-19-2024 MR/BMS.[address], [address] [place] [address] OFFICE VISIT Date of Service: 05/19/24 MR#: [id number] Acct: [id number] Name: TRACY LIZARRAGA Rep #: [id number] : 1975 Provider: Dr. Balaji Hodgson se, DO Age/Sex: 48/F Location: [facility].BP Status: Signed Intake Vital Signs 04/22/24 08:55 05/19/24 15:00 Height 5 ft 3 in 5 ft 3 in Weight: 251 lb BMI 44.4 BP 128/78 H 111/78 Blood Pressure Location Rt brachial Lt brachial Position Sitting Sitting Respiration 18 16 Pulse 85 79 Pulse Source Monitor Monitor Temp 97.2 F L Pulse Oximetry (%) 97 Oxygen Delivery Method room air BP Intake Visit Reasons: Follow up Accompanied by: Self Allergies hydrocodone Allergy (Intermediate, Verified 05/19/24 15:03) Hives Medications ???Medication ???Instructions ???Recorded ???Confirmed ???Type acetaminophen 500 mg tablet 1,000 mg PO Q8H PRN Pain 07/05/21 05/19/24 History twrddhfr-akwc-djx-iron 18 mg-folic 1 tab PO DAILY SUPPLEMENT 05/19/24 History 240 mcg-vit K 120 mcg-herbal tablet ([employer]) ipratropium 0.5 mg-albuterol 3 mg 3 ml inhalation Q4H.RT #180 mL 05/19/24 Rx (2.5 mg base)/3 mL nebulization soln nebulizer and compressor #1 ea 06/27/23 05/19/24 Rx albuterol sulfate 2.5 mg/3 mL 2.5 mg (3 mL) inhalation Q4H PRN 0 12/03/23 05/19/24 Rx (0.083 %) solution for nebulization #25 vials fluticasone fur. 100 mcg-umeclid 1 inh inhalation Q24H #60 ea 01/1005/19/24 Rx 62.5 mcg-vilant 25 mcg inhalat.powder (Trelegy Ellipta) ondansetron 4 mg disintegrating 4 mg PO Q8H PRN PRN Nausea #30 tab s 01/12/24 05/19/24 Rx tablet sumatriptan succinate 25 mg tablet See Rx Instructions PO .COMPLEX 03/30/24 05/19/24 Rx (Imitrex) #10 tabs topiramate 25 mg tablet 25 mg PO BID #60 tabs 04/04/24 Rx promethazine 25 mg tablet 25 mg PO Q6H PRN nausea and 05/19/24 Rx vomiting #20 tabs albuterol sulfate 90 mcg/actuation 1 - 2 puff inhalation Q4H PRN MT N 04/25/24 05/19/24 Rx aerosol inhaler (Ventolin HFA) Wheezing ##1 ibuprofen 800 mg tablet 800 mg PO TID PRN pain #30 tabs 05/19/24 Rx cariprazine 3 mg capsule 3 mg PO DAILY #30 caps 05/19/24 Rx clonazepam 1 mg tablet 1 mg PO DAILY PRN anxiety 15 days 05/19/24 05/19/24 Rx #15 tabs quetiapine 25 mg tablet 25 mg PO QHS sleep/mood #30 tabs 0 05/19/24 05/19/24 Rx PFSH Medical History Migraine Screening for cardiovascular condition Morbid obesity Hypersomnolence Dermatitis Breast cyst Schizoaffective disorder, bipolar type History of herniated intervertebral disc Wears glasses Schizophrenia Bipolar disorder Alcohol use Easy bruising Hepatitis Injury of back Peptic ulcer History of IBS Smoker MARIA INES (obstructive sleep apnea) Shortness of breath on exertion Chronic cough Leg cramps History of stress test Hx of degenerative disc disease Herniated cervical disc Lumbar radicular pain COPD (chronic obstructive pulmonary disease) Chronic pain Ulnar nerve laceration Carpal tunnel syndrome COPD exacerbation Polysubstance abuse Tobacco use (Unknown) Asthma Anxiety Hepatitis C Surgical History History of back surgery History of lumbar laminectomy History of back surgery History of decompression of ulnar nerve History of cholecystectomy History of appendectomy History of tubal ligation Family History Mother Anemia Asthma Arthritis Emotional disorder Bleeding disorder COPD (chronic obstructive pulmonary disease) Father Myocardial infarction Prostate cancer Social History adopted: No household members: significant other housing: house number of children: 3 current occupational status: employed current occupation: [employer] pets and animals: Yes pets and animals: cat(s) and dog(s) sexually active: Yes Smoking Status: Current every day smoker tobacco type: cigarettes and e-cigarettes Tobacco: How many years used: 20 alcohol intake: never substance use type: does not use caffeine: Yes (2) Type: carbonated beverages and coffee what type of physical activity do you participate in: none do you feel safe at home: Yes HPI History of Present Illness History provided by: patient HPI: Tracy Lizarraga is a 48 year old female who presents today for follow up evaluation. Patient recently slipped and sprained her ankle. Fell on some ice when taking the trash out. Has been out of work for about 3 weeks, and is back to work tomorrow. Went and stayed at the [facility] shortly after our la (more content not included)... [facility] Lower Ext Joint Only (Routin e)on 05-09-2024 Lower Ext Joint Only (Routine) [facility] Imaging Services [address] [place] [id number] Lower Ext Joint Only (Routine) MR#: [id number] Acct: [id number] Name: TRACY LIZARRAGA Rep #: [id number] : 1975 F 48 From: Jsoe Zimmer PCP: Dr. Juve Brown MD Status: REG CLI Study: Lower Ext Joint Only (Routine) Date of Exam: 0 05/09/24 Exam# [id number] Ordering Dr: Jerzy Cast DPM PROCEDURE: MRI right ankle without IV contrast REASON FOR EXAM: Pain, injury TECHNIQUE: Multisequence multiplanar MR images of the right ankle were obtained without the administration of intravenous contrast. COMPARISON: None. FINDINGS Achilles tendon is intact. Mild diffuse flexor tenosynovitis, greatest involving the tibialis posterior and knot of [place]. Peroneal tendons are intact. Extensor tendons are intact. Syndesmotic ligaments are intact. Torn anterior talofibular ligament. Sprain of the calcaneofibular ligament. Intact posterior talofibular ligament. Sprains of the superficial and deep deltoid ligaments without discrete tear. Moderate focal edema along the medial aspect of the talar neck likely related to contusion. No discrete fracture line noted. Remaining bone marrow signal is within normal limits. Small tibiotalar and subtalar joint effusions with mild synovitis. Plantar fascia is intact. Sinus tarsi fat is preserved. Mild medial and lateral soft tissue edema. MRI/Lower Ext Joint Only (Routine) IMPRESSION: 1. Torn anterior talofibular ligament. Sprain of the calcaneofibular ligament. 2. Sprains of the deep and superficial deltoid ligaments. 3. Moderate contusion along the medial aspect of the talar neck without a discrete fracture line. 4. Mild diffuse flexor tenosynovitis. Visualized tendons are otherwise intact. Reading Location: [facility] CC: SAMY Cast; Dr. Juve Brown MD Director Of Social Work: Signed [facility] Venous Duplex US, Unilateral on 04-26-2024 Venous Duplex US, Unilateral [facility] Cardiovascular Services [address] [facility] [place] [address] Venous Duplex US, Unilateral 04/26/24 1523 MR#: [id number] Acct: [id number] Name: TRACY LIZARRAGA Rep #: [id number] : 1975 48 From: Brayan Reed MD Attending Dr: Dr. Jerzy Cast DPM Status: REG CLI Ordering Dr: Jerzy Cast DPM Date: 04/26/24 Location: [facility] Sex: F C Admitted: Reason For Study: Right leg pain RIGHT LEFT GSV is normal. CFV is compressible, spontaneous, phasic, CFV is compressible, spontaneous, phasic, competent, and demonstrates normal competent and demonstrates normal augmentation. augmentation. FV is compressible, spontaneous, phasic, competent and demonstrates normal augmentation. POP V is compressible, spontaneous, phasic, competent and demonstrates normal augmentation. T/P Trunk is compressible. PTV is compressible. RT PerV is compressible. Procedure This is a venous duplex using B-mode, color flow and spectral Doppler. Exam performed in department. A preliminary report was called and/or faxed to Dr. Cast. VL/Venous Duplex US, Unilateral Interpretation Summary Deep veins of the right lower extremity are patent and compressible segmentally. There is no evidence of right lower extremity deep vein thrombosis. The right great saphenous vein appears patent and compressible segmentally. Ordering Physician: Jerzy Cast Referring Physician: Juve Brown Performed By: Myrna Quesada Katelyn 04/26/24 1804 Date Brayan Reed MD CC: DPM Dr. Jerzy Cast; Dr. Juve Brown MD Date Dictated: 04/26/24 1523 Date Transcribed: 04/26/24 1804 Director Of Social Work: Signed [facility] Internal Medicine Office Vis tacho 04-22-2024 Internal Medicine Office Visit [facility] [address] [place], [place] [address] OFFICE VISIT Date of Service: 04/22/24 MR#: [id number] Acct: [id number] Name: TRACY LIZARRAGA Rep #: [id number] : 1975 Provider: BANG Fowler Age/Sex: 48/F Location: [facility] Status: Signed Intake Vital Signs 04/19/24 15:29 04/22/24 08:55 Height 5 ft 3 in 5 ft 3 in Weight: 251 lb BMI 44.4 BP 128/78 H Blood Pressure Location Rt brachial Position Sitting Respiration 18 Pulse 85 Pulse Source Monitor Temp 97.2 F L Temp Source Temporal Pulse Oximetry (%) 97 Oxygen Delivery Method room air Intake Visit Reasons: acute - sprained rt ankle Chief Complaint: right ankle sprain Weight Reducing Technician Required: No Accompanied by: Self Is patient in pain?: Yes Pain scale (1-10): 10 Pain Scale - Faces (1-5): 5 Allergies hydrocodone Allergy (Intermediate, Verified 04/22/24 08:46) Hives Medications ???Medication ???Instructions ???Recorded ???Confirmed ???Type acetaminophen 500 mg tablet 1,000 mg PO Q8H PRN Pain 07/05/21 04/22/24 History ibuprofen 800 mg tablet 800 mg PO TID PRN pain #30 tabs 04/22/24 Rx ehemplqc-cfbb-lvl-iron 18 mg-folic 1 tab PO DAILY SUPPLEMENT 04/22/24 History 240 mcg-vit K 120 mcg-herbal tablet ([employer]) ipratropium 0.5 mg-albuterol 3 mg 3 ml inhalation Q4H.RT #180 mL 04/22/24 Rx (2.5 mg base)/3 mL nebulization soln nebulizer and compressor #1 ea 06/27/23 04/22/24 Rx albuterol sulfate 2.5 mg/3 mL 2.5 mg (3 mL) inhalation Q4H PRN 0 12/03/23 04/22/24 Rx (0.083 %) solution for nebulization #25 vials albuterol sulfate 90 mcg/actuation 1 - 2 puff inhalation Q4H PRN MT N 01/11/24 04/22/24 Rx aerosol inhaler (Ventolin HFA) Wheezing ##1 fluticasone fur. 100 mcg-umeclid 1 inh inhalation Q24H #60 ea 01/1004/22/24 Rx 62.5 mcg-vilant 25 mcg inhalat.powder (Trelegy Ellipta) ondansetron 4 mg disintegrating 4 mg PO Q8H PRN PRN Nausea #30 tab s 01/12/24 04/22/24 Rx tablet cariprazine 3 mg capsule 3 mg PO DAILY #30 caps 02/11/24 Rx quetiapine 25 mg tablet 25 mg PO QHS sleep/mood #30 tabs 1 04/12/23 04/22/24 Rx clonazepam 1 mg tablet 1 mg PO DAILY PRN anxiety 15 days 03/24/24 04/22/24 Rx #15 tabs sumatriptan succinate 25 mg tablet See Rx Instructions PO .COMPLEX 03/30/24 04/22/24 Rx (Imitrex) #10 tabs oxycodone 5 mg tablet 5 mg PO Q6H PRN pain 3 days #12 04/22/24 Rx tabs topiramate 25 mg tablet 25 mg PO BID #60 tabs 04/04/24 Rx promethazine 25 mg tablet 25 mg PO Q6H PRN nausea and 04/22/24 Rx vomiting #20 tabs semaglutide (weight loss) 0.25 0.25 mg (0.5 mL) subcut QWEEK #2 m L 04/14/24 04/22/24 Rx mg/0.5 mL subcutaneous pen injector (Evelyn) oxycodone-acetaminophen 5 mg-325 1 tab PO Q6H PRN PRN Pain 3 days 0 04/19/24 04/22/24 Rx mg tablet #12 TABLETS Have you fallen in the past year?: No Nurse's Note: pain is severe in right ankle scale 1-10 she states she is 9 patient fell and rolled rt ankle and left knee scraped up right elbow scraped and bruised [facility] Medical History Migraine Screening for cardiovascular condition Morbid obesity Hypersomnolence Dermatitis Breast cyst Schizoaffective disorder, bipolar type History of herniated intervertebral disc Wears glasses Schizophrenia Bipolar disorder Alcohol use Easy bruising Hepatitis Injury of back Peptic ulcer History of IBS Smoker MARIA INES (obstructive sleep apnea) Shortness of breath on exertion Chronic cough Leg cramps History of stress test Hx of degenerative disc disease Herniated cervical disc Lumbar radicular pain COPD (chronic obstructive pulmonary disease) Chronic pain Ulnar nerve laceration Carpal tunnel syndrome COPD exacerbation Polysubstance abuse Tobacco use (Unknown) Asthma Anxiety Hepatitis C Surgical History History of back surgery History of lumbar laminectomy History of back surgery History of decompression of ulnar nerve History of cholecystectomy History of appendectomy History of tubal ligation Family History Mother Anemia Asthma Arthritis Emotional disorder Bleeding disorder COPD (chronic obstructive pulmonary disease) Father Myocardial infarction Prostate cancer Social History adopted: No household members: significant other housing: house number of children: 3 current occupational status: employed current occupation: [employer] pets and animals: Yes pets and animals: cat(s) and dog(s) sexually active: Yes Smoking Stat (more content not included)... Normal [facility] Ankle min 3 Viewson 04-19-19 25 Ankle min 3 Views [facility] Imaging Services [address] [place], [place] [address] Ankle min 3 Views MR#: [id number] Acct: [id number] Name: TRACY LIZARRAGA Rep #: [id number] : 1975 F 48 From: Brayan Smith MD PCP: Dr. Juve Brown MD Status: PRE ER Study: Ankle min 3 Views Date of Exam: 04/19/24 Exam# [id number] Ordering Dr: Provider,Ed P. PROCEDURE: ANKLE MIN 3 VIEWS REASON FOR EXAM: Patient fell. Right ankle pain. Lateral swelling. TECHNIQUE: Three views of the right ankle COMPARISON: None. FINDINGS: RIGHT ANKLE: No visible fracture. No suspicious bone lesion. Normal alignment. Mortise appears intact. No effusion. Soft tissue swelling laterally. RAD/Ankle min 3 Views IMPRESSION: No acute osseous abnormalities are demonstrated. Soft tissue swelling laterally. Reading Location: [facility] CC: Dr. Juve Brown MD; ED PHYSICIAN PROVIDER Director Of Social Work: Signed Normal [facility] Emergency Department Summary on 04-19-2024 Emergency Department Summary [facility] Medical Records Department [address] [place] [address] Emergency Department Summary 04/19/24 MR#: [id number] Acct: [id number] Name: TRACY LIZARRAGA Rep #: [id number] : 1975 48 From: David Espinoza DO PCP: Dr. Juve Brown MD Status:DEP ER Location: ED HPI History of Present Illness Chief Complaint: Lower Extremity Injury Informant: patient Narrative Narrative: 48-year-old female presenting to the emergency room with right ankle pain. Patient states that she was walking when she suddenly fell down. She does note she slipped on ice her on a crack on the sidewalk. She notes pain mostly to the right ankle. She notes a left knee skin abrasion and right elbow skin abrasion. She denies striking her head. [facility] Medical History Migraine Screening for cardiovascular condition Morbid obesity Hypersomnolence Dermatitis Breast cyst Schizoaffective disorder, bipolar type History of herniated intervertebral disc Wears glasses Schizophrenia Bipolar disorder Alcohol use Easy bruising Hepatitis Injury of back Peptic ulcer History of IBS Smoker MARIA INES (obstructive sleep apnea) Shortness of breath on exertion Chronic cough Leg cramps History of stress test Hx of degenerative disc disease Herniated cervical disc Lumbar radicular pain COPD (chronic obstructive pulmonary disease) Chronic pain Ulnar nerve laceration Carpal tunnel syndrome COPD exacerbation Polysubstance abuse Tobacco use (Unknown) Asthma Anxiety Hepatitis C Home Medications ???Medication ???Instructions ???Recorded ???Last Taken ???Type acetaminophen 500 mg tablet 1,000 mg PO Q8H PRN Pain 07/05/21 06/26/23 History ibuprofen 800 mg tablet 800 mg PO TID PRN pain #30 tabs 09/10/21 06/26/23 Rx xvswfkya-varo-rqt-iron 18 mg-folic 1 tab PO DAILY SUPPLEMENT 06/26/23 06/26/23 History 240 mcg-vit K 120 mcg-herbal tablet ([employer]) ipratropium 0.5 mg-albuterol 3 mg 3 ml inhalation Q4H.RT #180 mL 06/27/23 Unknown Rx (2.5 mg base)/3 mL nebulization soln nebulizer and compressor #1 ea 06/27/23 Unknown Rx albuterol sulfate 2.5 mg/3 mL 2.5 mg (3 mL) inhalation Q4H PRN 12/03/23 Unknown Rx (0.083 %) solution for nebulization #25 vials albuterol sulfate 90 mcg/actuation 1 - 2 puff inhalation Q4H PRN PRN 01/11/24 Unknown Rx aerosol inhaler (Ventolin HFA) Wheezing ##1 fluticasone fur. 100 mcg-umeclid 1 inh inhalation Q24H #60 ea 01/11/24 Unknown Rx 62.5 mcg-vilant 25 mcg inhalat.powder (Trelegy Ellipta) ondansetron 4 mg disintegrating 4 mg PO Q8H PRN PRN Nausea #30 tabs 01/12/24 Unknown Rx tablet cariprazine 3 mg capsule 3 mg PO DAILY #30 caps 02/11/24 Unknown Rx quetiapine 25 mg tablet 25 mg PO QHS sleep/mood #30 tabs 02/11/24 Unknown Rx clonazepam 1 mg tablet 1 mg PO DAILY PRN anxiety 15 days 03/24/24 Unknown Rx #15 tabs sumatriptan succinate 25 mg tablet See Rx Instructions PO .COMPLEX 03/30/24 Unknown Rx (Imitrex) #10 tabs oxycodone 5 mg tablet 5 mg PO Q6H PRN pain 3 days #12 04/02/24 Unknown Rx tabs topiramate 25 mg tablet 25 mg PO BID #60 tabs 04/04/24 Unknown Rx promethazine 25 mg tablet 25 mg PO Q6H PRN nausea and 04/14/24 Unknown Rx vomiting #20 tabs semaglutide (weight loss) 0.25 0.25 mg (0.5 mL) subcut QWEEK #2 mL 04/14/24 Unknown Rx mg/0.5 mL subcutaneous pen injector (Wegovy) Allergy/AdvReac Type Severity Reaction Status Date / Time hydrocodone Allergy Intermediate Hives Verified 04/19/24 15:29 Family History Mother Anemia Asthma Arthritis Emotional disorder Bleeding disorder COPD (chronic obstructive pulmonary disease) Father Myocardial infarction Prostate cancer Surgical History History of back surgery History of lumbar laminectomy History of back surgery History of decompression of ulnar nerve History of cholecystectomy History of appendectomy History of tubal ligation Social History adopted: No household members: significant other housing: house number of children: 3 current occupational status: employed current occupation: [employer] pets and animals: Yes pets and animals: cat(s) and dog(s) sexually active: Yes Smoking Status: Current every day smoker tobacco type: cigarettes and e-cigarettes Tobacco: How many years used: 20 alcohol intake: never substance use type: does not use caffeine: Yes (2) Type: carbonated beverages and coffee what type of physical activity do you participate in: none do you feel safe at home: Yes ROS ROS ED Constitutional Constitutional ED: Denies chills or weight loss (more content not included)... Normal [facility] Internal Medicine Office Vis tacho 04-14-2024 Internal Medicine Office Visit [facility] [address] [place] [address] [place] [address] OFFICE VISIT Date of Service: 04/14/24 MR#: [id number] Acct: [id number] Name: TRACY LIZARRAGA Rep #: [id number] : 1975 Provider: Dr. Juve wakefield MD Age/Sex: 48/F Location: [facility] Status: Signed Intake Vital Signs 01/11/24 13:14 04/08/24 02:47 04/14/24 12:58 Height 5 ft 2 in 5 ft 3 in 5 ft 3 in Weight: 256 lb BMI 45.3 BP 126/84 H Blood Pressure Location Lt brachial Position Sitting Respiration 16 Pulse 93 Pulse Source Monitor Temp 97.2 F L Temp Source Temporal Pulse Oximetry (%) 97 Oxygen Delivery Method room air Intake Visit Reasons: 3 M FU Chief Complaint: 3m fu Weight Reducing Technician Required: No Accompanied by: Self Is patient in pain?: No Allergies hydrocodone Allergy (Intermediate, Verified 04/14/24 12:55) Hives Medications ???Medication ???Instructions ???Recorded ???Confirmed ???Type acetaminophen 500 mg tablet 1,000 mg PO Q8H PRN Pain 07/05/21 04/14/24 History ibuprofen 800 mg tablet 800 mg PO TID PRN pain #30 tabs 09/10/21 04/14/24 Rx pksfjfka-sbmj-yku-iron 18 mg-folic 1 tab PO DAILY SUPPLEMENT 06/26/23 04/14/24 History 240 mcg-vit K 120 mcg-herbal tablet ([employer]) ipratropium 0.5 mg-albuterol 3 mg 3 ml inhalation Q4H.RT #180 mL 06/27/23 04/14/24 Rx (2.5 mg base)/3 mL nebulization soln nebulizer and compressor #1 ea 06/27/23 04/14/24 Rx albuterol sulfate 2.5 mg/3 mL 2.5 mg (3 mL) inhalation Q4H PRN 12/03/23 04/14/24 Rx (0.083 %) solution for nebulization #25 vials albuterol sulfate 90 mcg/actuation 1 - 2 puff inhalation Q4H PRN PRN 01/11/24 04/14/24 Rx aerosol inhaler (Ventolin HFA) Wheezing ##1 fluticasone fur. 100 mcg-umeclid 1 inh inhalation Q24H #60 ea 01/11/24 04/14/24 Rx 62.5 mcg-vilant 25 mcg inhalat.powder (Trelegy Ellipta) ondansetron 4 mg disintegrating 4 mg PO Q8H PRN PRN Nausea #30 tabs 01/12/24 04/14/24 Rx tablet cariprazine 3 mg capsule 3 mg PO DAILY #30 caps 11/21/24 01/23/25 Rx quetiapine 25 mg tablet 25 mg PO QHS sleep/mood #30 tabs 02/11/24 04/14/24 Rx clonazepam 1 mg tablet 1 mg PO DAILY PRN anxiety 15 days 03/24/24 04/14/24 Rx #15 tabs sumatriptan succinate 25 mg tablet See Rx Instructions PO .COMPLEX 03/30/24 04/14/24 Rx (Imitrex) #10 tabs oxycodone 5 mg tablet 5 mg PO Q6H PRN pain 3 days #12 04/02/24 04/14/24 Rx tabs topiramate 25 mg tablet 25 mg PO BID #60 tabs 04/04/24 04/14/24 Rx promethazine 25 mg tablet 25 mg PO Q6H PRN nausea and 04/14/24 04/14/24 Rx vomiting #20 tabs semaglutide (weight loss) 0.25 0.25 mg (0.5 mL) subcut QWEEK #2 mL 04/14/24 04/14/24 Rx mg/0.5 mL subcutaneous pen injector (Wegovy) [facility] Medical History (Updated 04/14/24 @ 16:[address] Juve Brown MD) Migraine Screening for cardiovascular condition Morbid obesity Hypersomnolence Dermatitis Breast cyst Schizoaffective disorder, bipolar type History of herniated intervertebral disc Wears glasses Schizophrenia Bipolar disorder Alcohol use Easy bruising Hepatitis Injury of back Peptic ulcer History of IBS Smoker MARIA INES (obstructive sleep apnea) Shortness of breath on exertion Chronic cough Leg cramps History of stress test Hx of degenerative disc disease Herniated cervical disc Lumbar radicular pain COPD (chronic obstructive pulmonary disease) Chronic pain Ulnar nerve laceration Carpal tunnel syndrome COPD exacerbation Polysubstance abuse Tobacco use (Unknown) Asthma Anxiety Hepatitis C Surgical History History of back surgery History of lumbar laminectomy History of back surgery History of decompression of ulnar nerve History of cholecystectomy History of appendectomy History of tubal ligation Family History Mother Anemia Asthma Arthritis Emotional disorder Bleeding disorder COPD (chronic obstructive pulmonary disease) Father Myocardial infarction Prostate cancer Social History adopted: No household members: significant other housing: house number of children: 3 current occupational status: employed current occupation: [employer] pets and animals: Yes pets and animals: cat(s) and dog(s) sexually active: Yes Smoking Status: Current every day smoker tobacco type: cigarettes and e-cigarettes Tobacco: How many years used: 20 alcohol intake: never substance use type: does not use caffeine: Yes (2) Type: carbonated beverages and coffee what type of physical activity do you participate in: none do you feel safe at home: Yes HPI HPI Chief Complaint: 3m fu Details: TRACY LIZARRAGA is a 48 F who presents to the office (more content not included)... Normal [facility] Abdomen/Pelvis W IV Cont ONL Yon 04-08-2024 Abdomen/Pelvis W IV Cont ONLY [facility] Imaging Services [address], [place] [address] Abdomen/Pelvis W IV Cont ONLY MR#: [id number] Acct: [id number] Name: TRACY LIZARRAGA Rep #: [id number] : 1975 F 48 From: Stephane ramos MD PCP: Dr. Juve Brown MD Status: REG ER Study: Abdomen/Pelvis W IV Cont ONLY Date of Exam: Exam# [id number] Ordering Dr: Marvin Dougherty MD [id number] EXAM: CT ABDOMEN AND PELVIS WITH INTRAVENOUS CONTRAST CLINICAL INDICATION: Nausea, vomiting, diarrhea TECHNIQUE: Helically acquired images were obtained of the abdomen and pelvis with intravenous contrast. This CT exam was performed using one or more of the following dose reduction techniques: automated exposure control, adjustment of the mA and/or kV according to patient size, and/or use of iterative reconstruction technique. CONTRAST: IV 100mL Isovue-300 RADIATION DOSE: Total DLP: 1265.56 mGy-cm. COMPARISON: Nonenhanced abdomen pelvis CT of 02/16/2024. FINDINGS: LOWER THORAX: There is minimal thickening of the distal esophageal wall due to hiatal hernia and/or very mild reflux esophagitis. Visualized lung bases are clear. No significant pericardial effusion. ABDOMEN: LIVER: Moderate fatty infiltration of the liver. Right hepatic lobe measures 22 cm in cephalocaudal dimension. Hepatic veins and portal veins enhance normally. GALLBLADDER AND BILE DUCTS: Absent gallbladder. Common bile duct is normal in caliber for a postcholecystectomy patient. No calcified common duct stone. PANCREAS: Unremarkable. No focal cystic or solid mass. SPLEEN: Unremarkable. Normal size without focal cystic or solid mass. ADRENALS: Unremarkable. No nodules. KIDNEYS AND URETERS: Unremarkable. Normal renal size and position. No hydronephrosis. No renal or obstructing ureteral stone. STOMACH AND BOWEL: No gastric mural thickening, periduodenal inflammatory changes or distended small bowel loops. Numerous small bowel loops are filled with fluid with air-fluid levels and trace of adjacent mesenteric haziness. Air-fluid levels are also noted throughout the colon, and the rectum is filled with fluid/liquid stool. No colonic mural thickening is identified. PELVIS: APPENDIX: Partially distended urinary bladder is unremarkable. Previous appendectomy. BLADDER: Unremarkable. REPRODUCTIVE: Unremarkable as visualized. No mass. ABDOMEN and PELVIS: INTRAPERITONEAL SPACE: Unremarkable. No ascites or other fluid collection. No free air. BONES/JOINTS: Stable degenerative narrowing of the T11/12 disc space. No acute osseous abnormality. No suspicious lytic or blastic abnormality. SOFT TISSUES: Unremarkable. No discrete abdominal or pelvic wall hernia. VASCULATURE: Normal caliber abdominal aorta. SMA and AASHISH enhance normally. LYMPH NODES: Unremarkable. No enlarged lymph nodes. CT/Abdomen/Pelvis W IV Cont ONLY IMPRESSION: 1. Findings of a gastroenteritis with diarrhea. 2. No findings of small bowel obstruction. 3. Enlarged fatty liver. 4. Previous appendectomy. 5. Minimal distal esophageal mural thickening due to hiatal hernia and/or very mild reflux esophagitis. Electronically Signed: Stephane Tovar MD at 4:17 EST , CC: Dr. Marvin Dougherty MD; Dr. Juve Brown MD Director Of Social Work: Signed Normal [facility] CBC W/Diff, Automatedon 03-23 Absolute Lymph 0.59 X10 3/uL Low 0.83-4.51 [facility] Comment on above: Performed By: #### L 501.2450, L500.4050, L100.0100 ####[facility] [address] [place], [address] Absolute Neut 17.6 X10 3/uL High 2.0-7.7 [facility] Comment on above: Performed By: #### L 501.2450, L500.4050, L100.0100 ####[facility] [address] [place], [address] Basophils/100 WBC (Bld) 0.3 % Normal 0-1 [facility] Comment on above: Performed By: #### L 501.2450, L500.4050, L100.0100 ####[facility] [address] [place], [address] Eosinophils/100 WBC (Bld) 0.4 % Normal 0-5 [facility] Comment on above: Performed By: #### L 501.2450, L500.4050, L100.0100 ####[facility] [address] [place], [address] Erythrocyte distribution width (RBC) [Ratio] 13.1 % Normal 11.6-14.6 [facility] Comment on above: Performed By: #### L 501.2450, L500.4050, L100.0100 ####[facility] [address] [place], [address] Hematocrit (Bld) [Volume fraction] 45.3 % Normal 37-47 [facility] Comment on above: Performed By: #### L 501.2450, L500.4050, L100.0100 ####[facility] [address] [place], [address] Hemoglobin (Bld) [Mass/Vol] 14.7 g/dL Normal 12.0-15.0 [facility] Comment on above: Performed By: #### L 501.2450, L500.4050, L100.0100 ####[facility] [address] [place], [address] IG% 0.600 Normal 0.0-0.9 [facility] Comment on above: Result Comment: IG% - Immature Granulocytes (promyelocytes, myelocytes and metamyelocytes) > 1% indicates that a LEFT SHIFT is Present. Performed By: #### L 501.2450, L500.4050, L100.0100 ####[facility] [address] [place], [address] Lymphocytes/100 WBC (Bld) 3.2 % Low 19-41 [facility] Comment on above: Performed By: #### L 501.2450, L500.4050, L100.0100 ####[facility] [address] [place], [address] MCH (RBC) [Entitic mass] 29.1 pg Normal 27.0-32.0 [facility] Comment on above: Performed By: #### L 501.2450, L500.4050, L100.0100 ####[facility] [address] [place], [address] MCHC (RBC) [Mass/Vol] 32.5 g/dL Normal 32-36 [facility] Comment on above: Performed By: #### L 501.2450, L500.4050, L100.0100 ####[facility] [address] [place], [address] MCV (RBC) [Entitic vol] 89.5 fL Normal 81-99 [facility] Comment on above: Performed By: #### L 501.2450, L500.4050, L100.0100 ####[facility] [address] [place], [address] Monocytes/100 WBC (Bld) 1.6 % Normal 0-10 [facility] Comment on above: Performed By: #### L 501.2450, L500.4050, L100.0100 ####[facility] [address] [place], [address] Neutrophils/100 WBC (Bld) 93.9 % High 47-70 [facility] Comment on above: Performed By: #### L 501.2450, L500.4050, L100.0100 ####[facility] [address] [place], [address] Nucleated RBC (Bld) [#/Vol] 0 10*3/uL Normal 0-5 [facility] Comment on above: Performed By: #### L 501.2450, L500.4050, L100.0100 ####[facility] [address] [place], [address] Platelet mean volume (Bld) [Entitic vol] 9.4 fL Normal 6.2-12.0 [facility] Comment on above: Performed By: #### L 501.2450, L500.4050, L100.0100 ####[facility] [address] [place], [address] Platelets (Bld) [#/Vol] 368 10*3/uL Normal 150-450 [facility] Comment on above: Performed By: #### L 501.2450, L500.4050, L100.0100 ####[facility] [address] [place], [address] RBC (Bld) [#/Vol] 5.06 10*6/uL Normal 4.2-5.4 [facility] Comment on above: Performed By: #### L 501.2450, L500.4050, L100.0100 ####[facility] [address] [place], [address] RDW SD 42.5 fl Normal 35.1-43.9 [facility] Comment on above: Performed By: #### L 501.2450, L500.4050, L100.0100 ####[facility] [address] [place], [address] WBC (Bld) [#/Vol] 18.7 10*3/uL High 4.4-11.0 [facility] Comment on above: Performed By: #### L 501.2450, L500.4050, L100.0100 ####[facility] [address] [place], [address] Comprehensive Metabolic Prof ilon 04-08-2024 Albumin [Mass/Vol] 3.8 g/dL Normal 3.2-5.0 [facility] Comment on above: Performed By: #### L 501.2450, L500.4050, L100.0100 ####[facility] [address] [place], [address] Albumin/Globulin [Mass ratio] 0.9 {ratio} Normal 0.9-2.4 [facility] Comment on above: Performed By: #### L 501.2450, L500.4050, L100.0100 ####[facility] [address] [place], [address] ALK P 107 U/L Normal 45-117 [facility] Comment on above: Performed By: #### L 501.2450, L500.4050, L100.0100 ####[facility] [address] [place], [address] ALT [Catalytic activity/Vol] 150 U/L High 13-56 [facility] Comment on above: Performed By: #### L 501.2450, L500.4050, L100.0100 ####[facility] [address] [place], [address] AST [Catalytic activity/Vol] 78 U/L High 15-37 [facility] Comment on above: Performed By: #### L 501.2450, L500.4050, L100.0100 ####[facility] [address] [place], [address] Bilirubin [Mass/Vol] 0.90 mg/dL Normal 0.20-1.00 [facility] Comment on above: Result Comment: For patients on eltrombopag therapy, use of Dimension [place] TBIL is not recommended. Performed By: #### L 501.2450, L500.4050, L100.0100 ####[facility] [address] [place], [address] BUN/CRE 19.1 RATIO Normal 10-20 [facility] Comment on above: Performed By: #### L 501.2450, L500.4050, L100.0100 ####[facility] [address] [place], [address] CA,Total 9.2 mg/dL Normal 8.5-10.1 [facility] Comment on above: Performed By: #### L 501.2450, L500.4050, L100.0100 ####[facility] [address] [place], [address] Chloride [Moles/Vol] 104 mmol/L Normal 98-107 [facility] Comment on above: Performed By: #### L 501.2450, L500.4050, L100.0100 ####[facility] [address] [place], [address] CO2 [Moles/Vol] 20.0 mmol/L Low 21.0-32.0 [facility] Comment on above: Performed By: #### L 501.2450, L500.4050, L100.0100 ####[facility] [address] [place], [address] Creatinine [Mass/Vol] 0.84 mg/dL Normal 0.55-1.02 [facility] Comment on above: Result Comment: The validity of the calculated GFR GFRAA in patients over 70 years has not been determined. Clinical correlation is essential. Performed By: #### L 501.2450, L500.4050, L100.0100 ####[facility] [address] [place], [address] ECRCL 100.32 ml/min Normal [facility] Comment on above: Performed By: #### L 501.2450, L500.4050, L100.0100 ####[facility] [address] [place], [address] EST GFR - AA 93 mL/min Normal >60 [facility] Comment on above: Result Comment: Afri can Camb[place]ian GFR Calc Performed By: #### L 501.2450, L500.4050, L100.0100 ####[facility] [address] [place], [address] GAP 10 Normal 5-15 [facility] Comment on above: Performed By: #### L 501.2450, L500.4050, L100.0100 ####[facility] [address] [place], [address] GFR/1.73 sq M.predicted among non-blacks MDRD (S/P/Bld) [Vol rate/Area] 77 mL/min/{1.73_m2} Normal >60 [facility] Comment on above: Result Comment: Non- GFR Calc Performed By: #### L 501.2450, L500.4050, L100.0100 ####[facility] [address] [place], [address] Globulin (S) [Mass/Vol] 4.4 g/dL High 2.2-4.2 [facility] Comment on above: Performed By: #### L 501.2450, L500.4050, L100.0100 ####[facility] [address] [place], [address] Glucose [Mass/Vol] 169 mg/dL High 74-106 [facility] Comment on above: Result Comment: Fast ing Glucose result greater than or equal to 126 mg/dL suggests DIABETES MELLITUS per A.D.A. criteria. Performed By: #### L 501.2450, L500.4050, L100.0100 ####[facility] [address] [place], [address] Potassium [Moles/Vol] 3.7 mmol/L Normal 3.5-5.1 [facility] Comment on above: Performed By: #### L 501.2450, L500.4050, L100.0100 ####[facility] [address] [place], [address] Sodium [Moles/Vol] 134 mmol/L Low 136-145 [facility] Comment on above: Performed By: #### L 501.2450, L500.4050, L100.0100 ####[facility] [address] [place], [address] T PROT 8.2 g/dL Normal 6.4-8.2 [facility] Comment on above: Performed By: #### L 501.2450, L500.4050, L100.0100 ####[facility] [address] [place], [address] Urea nitrogen [Mass/Vol] 16 mg/dL Normal 7-18 [facility] Comment on above: Performed By: #### L 501.2450, L500.4050, L100.0100 ####[facility] [address] [place], [address] Emergency Department Summary on 04-08-2024 Emergency Department Summary [facility] Medical Records Department [address] [place] [address] Emergency Department Summary 04/08/24 MR#: [id number] Acct: [id number] Name: TRACY LIZARRAGA Rep #: [id number] : 1975 48 From: Marvin Dougherty MD PCP: Dr. Juve Brown MD Status:REG ER Location: ED HPI HPI - GI History of Present Illness Chief Complaint: Nausea/Vomiting/Diarrhea Nausea/Vomiting/Emesis GI Symptom: Positive for Nausea and Vomiting Diarrhea/Melena/Hematochez ia GI Symptom: Positive for Diarrhea Stool Quality: Positive for Watery Narrative Narrative: 48-year-old female past medical history of COPD presents via EMS with nausea, vomiting, and diarrhea that began at 8 PM yesterday, approximately 7 hours ago. She has past abdominal surgical history of cholecystectomy and appendectomy. Last menstrual period was a few months ago but she may be perimenopausal. She relates history that she started having nausea and vomiting and has vomited multiple times. She also started having loose, liquid stool, at least 4-5 episodes in the last 7 hours. 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 She denies any exacerbating or alleviating factors. No fevers or chills. Denies drug or alcohol use. [facility] Medical History Migraine Screening for cardiovascular condition Morbid obesity Hypersomnolence Dermatitis Breast cyst Schizoaffective disorder, bipolar type History of herniated intervertebral disc Wears glasses Schizophrenia Bipolar disorder Alcohol use Easy bruising Hepatitis Injury of back Peptic ulcer History of IBS Smoker MARIA INES (obstructive sleep apnea) Shortness of breath on exertion Chronic cough Leg cramps History of stress test Hx of degenerative disc disease Herniated cervical disc Lumbar radicular pain COPD (chronic obstructive pulmonary disease) Chronic pain Ulnar nerve laceration Carpal tunnel syndrome COPD exacerbation Polysubstance abuse Tobacco use (Unknown) Asthma Anxiety Hepatitis C Home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 because of this. Feels like work is starting to become a lot. Is currently working at [employer] but feels like it wears her down. Plans to take work off today. Is working third shift. Feels like her head is in a fog and that she is not a part of anything. Most nights has been unable to sleep nearly at all. Never started at [facility] because she was unable to get transportation. Recently cut herself and she believes her niece or neighbor called the police and crisis on her. Did feel like this was voice telling her to do this. Has been destroying things in her house. Denies any thoughts of suicide or homicide, but does at time feel overwhelmed. Unclear if vraylar is helping much at all to this point. Feels like everyone is out to get her. Review of Systems Constitutional Denies: fever(s), chills, change in weight or fatigue Eyes Denies: change in vision or blurry vision Ears, Nose, Mouth, Throat Denies: throat pain, neck pain or change in hearing Cardiovascular Reports: dyspnea (possibly from anxiety); Denies: palpitations Respiratory Reports: dyspnea (possibly from anxiety); Denies: cough or wheezing Gastrointestinal Reports: nausea; Denies: abdominal pain, vomiting, diarrhea or constipation Genitourinary Denies: d (more content not included)... Normal [facility] L/S Spine Min 4 Views09-22 L/S Spine Min 4 Views [facility] [address] [place] [address] L/S Spine Min 4 Views MR#: [id number] Acct: [id number] Name: TRACY LIZARRAGA Rep #: [id number] : 1975 F 48 From: Tommy James PCP: Dr. Olivia Prakash MD Status: DEP AMB Study: L/S Spine Min 4 Views Date of Exam: 10/20/23 Exam# [id number] Ordering Dr: Justo Hernandez MD [id number] INDICATION: lbp -- Please do upright AP lateral flexion-extension EXAMINATION/TECHNIQUE: X-RAY - XR Spine Lumbar Min 4 Views COMPARISON: MRI of the lumbar spine of 09/17/2023 FINDINGS: VERTEBRAE: Preserved vertebral body height. No fracture. No spondylolisthesis. Preservation of the normal lumbar lordosis. The alignment is stable on flexion and extension views. DISCS: Mild disc space narrowing of L3-L4 and L4-L5. INCLUDED ABDOMEN: Included bowel gas pattern is non-obstructive. RAD/L/S Spine Min 4 Views IMPRESSION: No evidence of spondylolisthesis. Electronically Signed: Tommy Willis MD at 14:52 EDT , CC: Dr. Justo Hernandez MD; Dr. Olivia Prakash MD Director Of Social Work: Signed Normal [facility] Orthopedic Visit Reporton Orthopedic Visit Report [facility] [address] [place] [address] OFFICE VISIT Date of Service: 10/20/23 MR#: [id number] Acct: [id number] Name: TRACY LIZARRAGA Rep #: [id number] : 1975 Provider: Dr. Justo Hernandez MD Age/Sex: 48/F Location: [facility] Status: Signed Intake Vital Signs 09/09/23 12:50 09/14/23 14:27 09/17/23 12:30 10/20/23 14:00 Height 5 ft 3 in 5 ft 3 in 5 ft 3 in 5 ft 3 in Weight: 229 lb 4 oz BMI 40.6 Intake Visit Reasons: LUMBAR SPINE Accompanied by: Self Is patient in pain?: Yes Allergies hydrocodone Allergy (Intermediate, Verified 10/20/23 14:02) Hives Medications ???Medication ???Instructions ???Recorded ???Confirmed ???Type acetaminophen 500 mg tablet 1,000 mg PO Q8H PRN Pain 07/05/21 10/20/23 History albuterol sulfate 90 mcg/actuation 2 puff inhalation Q4H PRN PRN 07/05/21 10/20/23 Rx aerosol inhaler (Ventolin HFA) Wheezing ##1 ibuprofen 800 mg tablet 800 mg PO TID PRN pain #30 tabs 09/10/21 10/20/23 Rx vxdgliwa-lavh-umd-iron 18 mg-folic 1 tab PO DAILY SUPPLEMENT 06/26/23 10/20/23 History 240 mcg-vit K 120 mcg-herbal tablet ([employer]) budesonide-formoterol HFA 160 1 inh inhalation BID #10.2 grams 06/27/23 10/20/23 Rx mcg-4.5 mcg/actuation aerosol inhaler (Breyna) ipratropium 0.5 mg-albuterol 3 mg 3 ml inhalation Q4H.RT #180 mL 06/27/23 10/20/23 Rx (2.5 mg base)/3 mL nebulization soln nebulizer and compressor #1 ea 06/27/23 10/20/23 Rx cariprazine 3 mg capsule 3 mg PO DAILY #30 caps 09/09/23 10/20/23 Rx clonazepam 1 mg tablet 1 mg PO DAILY PRN anxiety 10 days 09/30/23 10/20/23 Rx #10 tabs PFSH Medical History Schizoaffective disorder, bipolar type History of herniated intervertebral disc Wears glasses Schizophrenia Bipolar disorder Alcohol use Easy bruising Hepatitis Injury of back Peptic ulcer History of IBS Smoker MARIA INES (obstructive sleep apnea) Shortness of breath on exertion Chronic cough Leg cramps History of stress test Hx of degenerative disc disease Herniated cervical disc Lumbar radicular pain COPD (chronic obstructive pulmonary disease) Chronic pain Ulnar nerve laceration Carpal tunnel syndrome COPD exacerbation Polysubstance abuse Tobacco use (Unknown) Asthma Anxiety Hepatitis C Surgical History History of back surgery History of lumbar laminectomy History of back surgery History of decompression of ulnar nerve History of cholecystectomy History of appendectomy History of tubal ligation Social History household members: none housing: house Smoking Status: Current every day smoker tobacco type: cigarettes and e-cigarettes substance use type: does not use HPI LUMBAR SPINE Details: This documentation accurately reflects the service provided and the decisions made by me, Dr. Justo Hernandez MD 10/20/23 1848. Part of today???s visit was documented by Kathi NAVARRO, acting as scribe. TRACY LIZARRAGA is a 48 year old F here today for low back pain. Patient did have a Lateral laminectomy/discectomy L3-4 on the right on 11/22/20. She states that the pain started again about 3 months ago but within the last 2 months it has gotten severe. She states that her pain radiates into her tailbone and wraps around into her groin bilaterally. 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 She states that her tailbone feels numb and her pain does radiate down both legs but more on the right side along with numbness. She does have burning pain in the legs. She also has some stiffness in her low back. She has tried to exercise and do some stretching but it doesn't seem to relieve her pain. Her pain is keeping her up at night and she isn't comfortable unless she is in a position. She does take 4 200mg Tylenol and 4 Ibuprofen which does take the edge off but only for a short period of time. She has been using ice and heat. She denies any recent physical therapy or injections. She did have a recent MRI on 09/17/23. Tracy underwent L3-4 right possibly extraforaminal decompression discectomy in November 2020. Apparently she had to stay 3 weeks in a rehab facility after this surgery. She denies any complications related to the surgery. This she says that the surgery helped however she started getting newer and worsening symptoms about 6 months ago. Her symptoms before her surgery were right lower extremity radiation into the anterior thigh. She says the same symptoms have repaired but now she also gets pain in the left side radiating to his left groin. She also has pain going towards (more content not included)... Normal [facility] Emergency Department Summary on 09-17-2023 Emergency Department Summary [facility] Medical Records Department [address] [place] [address] Emergency Department Summary 09/17/23 MR#: [id number] Acct: [id number] Name: TRACY LIZARRAGA Rep #: [id number] : 1975 48 From: Donovan Jackson MD PCP: Dr. Olivia Prakash MD Status:REG ER Location: ED HPI History of Present Illness Chief Complaint: Back Informant: patient Narrative Narrative: 48-year-old female with a history of back surgery laminectomy, has been having gradually worsening pain in her low back middle all the way across worse on the right and down her right lower extremity over the past month now to the point where she is having difficulty sleeping and functioning because of the pain despite taking Tylenol and ibuprofen. She has now developed urinary frequency in the last several days and concerned it is related she denies dysuria. She denies weakness but she has numbness all the way down the right lower extremity to the foot, and feels burning and numb when she walks. She denies saddle anesthesia. [facility] Medical History Schizoaffective disorder, bipolar type History of herniated intervertebral disc Wears glasses Schizophrenia Bipolar disorder Alcohol use Easy bruising Hepatitis Injury of back Peptic ulcer History of IBS Smoker MARIA INES (obstructive sleep apnea) Shortness of breath on exertion Chronic cough Leg cramps History of stress test Hx of degenerative disc disease Herniated cervical disc Lumbar radicular pain COPD (chronic obstructive pulmonary disease) Chronic pain Ulnar nerve laceration Carpal tunnel syndrome COPD exacerbation Polysubstance abuse Tobacco use (Unknown) Asthma Anxiety Hepatitis C Home Medications ???Medication ???Instructions ???Recorded ???Last Taken ???Type acetaminophen 500 mg tablet 1,000 mg PO Q8H PRN Pain 07/05/21 06/26/23 History albuterol sulfate 90 mcg/actuation 2 puff inhalation Q4H PRN PRN 07/05/21 06/26/23 Rx aerosol inhaler (Ventolin HFA) Wheezing ##1 ibuprofen 800 mg tablet 800 mg PO TID PRN pain #30 tabs 09/10/21 06/26/23 Rx rqzvqkmn-nllm-nyr-iron 18 mg-folic 1 tab PO DAILY SUPPLEMENT 06/26/23 06/26/23 History 240 mcg-vit K 120 mcg-herbal tablet ([employer]) budesonide-formoterol HFA 160 1 inh inhalation BID #10.2 grams 06/27/23 Unknown Rx mcg-4.5 mcg/actuation aerosol inhaler (Breyna) ipratropium 0.5 mg-albuterol 3 mg 3 ml inhalation Q4H.RT #180 mL 06/27/23 Unknown Rx (2.5 mg base)/3 mL nebulization soln nebulizer and compressor #1 ea 06/27/23 Unknown Rx ondansetron 4 mg disintegrating 4 mg PO Q6H PRN nausea and 06/27/23 Unknown Rx tablet vomiting #30 tabs pantoprazole 40 mg tablet,delayed 40 mg PO DAILY #30 tabs 06/27/23 Unknown Rx release (Protonix) cariprazine 3 mg capsule 3 mg PO DAILY #30 caps 09/09/23 Unknown Rx clonazepam 1 mg tablet 1 mg PO DAILY PRN anxiety 10 days 09/09/23 Unknown Rx #10 tabs oxycodone-acetaminophen 5 mg-325 1 tab PO Q6H PRN PRN Pain 3 days 09/17/23 Unknown Rx mg tablet #12 TABLETS Allergy/AdvReac Type Severity Reaction Status Date / Time hydrocodone Allergy Intermediate Hives Verified 09/17/23 12:30 Surgical History History of back surgery History of lumbar laminectomy History of back surgery History of decompression of ulnar nerve History of cholecystectomy History of appendectomy History of tubal ligation Social History household members: none housing: house Smoking Status: Current every day smoker tobacco type: cigarettes and e-cigarettes substance use type: does not use ROS ROS ED Constitutional Constitutional ED: Denies chills or fever(s) Gastrointestinal Gastrointestinal: Reports nausea; Denies abdominal pain, constipation, fecal incontinence or vomiting Genitourinary Genitourinary ED: Reports urinary frequency and other Details: no urinary retention ; Denies abdominal discomfort, dysuria, hematuria or urinary incontinence Musculoskeletal Musculoskeletal: Reports as per HPI and back pain; Denies neck pain Integumentary Denies rash or wounds Neurologic Neurologic: Reports paresthesias RLE (To the foot including plantar aspect); Denies headache(s) or weakness EXAM Physical Exam Const Vital Signs: 09/17/23 12:30 Temperature 98 F Temperature Source Temporal Pulse Rate 91 Respiratory Rate 14 Blood Pressure 146/97 H Blood Pressure Mean 113 Pulse Ox 97 Oxygen Delivery Method Room Air Positive well nourished, well developed and obese General Appearance ED: well developed and NAD Nutritional Appearance: obese HEENT Negative for trauma or tenderness E (more content not included)... Normal [facility] Spine Lumbar W/WO Contraston 09-17-2023 Spine Lumbar W/WO Contrast [facility] [address] [place] [address] Spine Lumbar W/WO Contrast MR#: [id number] Acct: [id number] Name: TRACY LIZARRAGA Rep #: [id number] : 1975 F 48 From: Jerzy Varghese MD PCP: Dr. Olivia Prakash MD Status: REG ER Study: Spine Lumbar W/WO Contrast Date of Exam: 08/22 10/13 Exam# [id number] Ordering Dr: Donovan Jackson MD [id number] STUDY: MRI LUMBAR SPINE WITH AND WITHOUT CONTRAST REASON FOR EXAM: Female, 48 years old. low back pain, R sciatica, RANDI findings TECHNIQUE: Standardized fat and water weighted pulse sequences were obtained in the sagittal and axial planes. IV 20cc clariscan was administered for the contrast portion of the examination. COMPARISON: September 06, 2021 report only FINDINGS: T11-12: Degenerative endplate changes. Narrowed disc space with desiccation of disc and minimal annular bulge without spinal stenosis only visualized on sagittal projection T12-L1: Normal endplates. Normal disc height, hydration and morphology. Normal bilateral facet joints. Normal central canal and bilateral lateral recesses. Normal bilateral intervertebral neural foramina. Normal lumbar lordosis. There is no substantial scoliosis. Normal conus medullaris that terminates at the L1-2: Normal endplates. Normal disc height, hydration and morphology. Normal bilateral facet joints. Normal central canal and bilateral lateral recesses. Normal bilateral intervertebral neural foramina. L2-3: Normal endplates. Normal disc height, hydration and morphology. Normal bilateral facet joints. Normal central canal and bilateral lateral recesses. Normal bilateral intervertebral neural foramina. L3-4: Postop change status post right laminotomy. Normal endplates. Normal disc height, desiccation minor annular bulge with tiny right foraminal disc protrusion. Mild facet arthropathy Normal central canal and bilateral lateral recesses. Mild to moderate left neural foraminal encroachment and minor right neural foraminal encroachment. Following contrast administration there is also noted to be epidural fibrosis in the right neural foramen as well as thickening and enhancement of the exiting nerve root L4-5: Postop change status post left laminotomy Normal endplates. Normal disc height, desiccation and minor annular bulge with tiny left foraminal annular tear and disc protrusion.. Bilateral facet arthropathy. Normal central canal and bilateral lateral recesses. Minor right neural foraminal encroachment and mild narrowing on the left as well as mild epidural fibrosis L5-S1: Normal endplates. Normal disc height, hydration and morphology. Mild facet arthropathy. Normal central canal and bilateral lateral recesses. Normal bilateral intervertebral neural foramina. Normal visualized sacral ala. Normal visualized paraspinous soft tissue structures. MRI/Spine Lumbar W/WO Contrast IMPRESSION: No evidence for acute fracture or other significant bony pathology. Status post laminotomy at L4-5 and L3-4 There is mild to moderate left neural foraminal encroachment at L3-4 and minor right neural foraminal encroachment with epidural enhancement and thickening as well as enhancement of the exiting nerve root At L4-5, there is mild bilateral neural foraminal encroachment secondary to disc disease and facet arthropathy as well as mild residual epidural fibrosis extending into the left neuroforamen. Electronically Signed: Jerzy Varghese MD at 16:44 EDT Reading Location ID and State: [facility] / [place] Tel , Service support , CC: Dr. Donovan Jackson MD; Dr. Olivia Prakash MD Director Of Social Work: Signed Normal [facility] Urinalysis, Completeon 09-16 EPI,SQUAMOUS 0-5 SEEN Normal 5-10 [facility] Comment on above: Order Comment: SHILA CTOR TO SPECIFY Performed By: #### L [id number] ####[facility] [address] [place], [place], [id number] WBC 0-5 SEEN Normal 0-5 [facility] Comment on above: Order Comment: SHILA CTOR TO SPECIFY Performed By: #### L [id number] ####[facility] [address] [place], [address] BACTERIA 0 SEEN Normal None Seen [facility] Comment on above: Order Comment: COLLE CTOR TO SPECIFY Performed By: #### L 400.0001 ####[facility] [address] [place], [address] Mucus Ql (Urine sed) 0 SEEN Normal [facility] Comment on above: Order Comment: SHILA CTOR TO SPECIFY Performed By: #### L 400.0001 ####[facility] [address] [place], [address] RBC 0 SEEN Normal 0-5 [facility] Comment on above: Order Comment: SHILA CTOR TO SPECIFY Performed By: #### L 400.0001 ####[facility] [address] [place], [address] MR/BMS.BPon 09-09-2023 MR/BMS.[address], [address] [place] [address] OFFICE VISIT Date of Service: 09/09/23 MR#: [id number] Acct: [id number] Name: TRACY LIZARRAGA Rep #: [id number] : 1975 Provider: Dr. Balaji Hodgson se, DO Age/Sex: 48/F Location: [facility].BP Status: Signed Intake Vital Signs 08/11/23 15:22 09/09/23 12:50 09/09/23 12:50 Height 5 ft 3 in 5 ft 3 in 5 ft 3 in BP 143/94 H Blood Pressure Location Rt brachial Position Sitting Pulse 80 Pulse Source Monitor BP Intake Visit Reasons: 1 M Weight Reducing Technician Required: No Accompanied by: Self Is patient in pain?: No Allergies hydrocodone Allergy (Intermediate, Verified 09/09/23 12:52) Hives Medications ???Medication ???Instructions ???Recorded ???Confirmed ???Type acetaminophen 500 mg tablet 1,000 mg PO Q8H PRN Pain 07/05/21 09/09/23 History albuterol sulfate 90 mcg/actuation 2 puff inhalation Q4H PRN PRN 07/05/21 09/09/23 Rx aerosol inhaler (Ventolin HFA) Wheezing ##1 ibuprofen 800 mg tablet 800 mg PO TID PRN pain #30 tabs 09/10/21 09/09/23 Rx gqadmfws-inmk-ukd-iron 18 mg-folic 1 tab PO DAILY SUPPLEMENT 06/26/23 09/09/23 History 240 mcg-vit K 120 mcg-herbal tablet ([employer]) budesonide-formoterol HFA 160 1 inh inhalation BID #10.2 grams 06/27/23 09/09/23 Rx mcg-4.5 mcg/actuation aerosol inhaler (Breyna) ipratropium 0.5 mg-albuterol 3 mg 3 ml inhalation Q4H.RT #180 mL 06/27/23 09/09/23 Rx (2.5 mg base)/3 mL nebulization soln nebulizer and compressor #1 ea 06/27/23 09/09/23 Rx ondansetron 4 mg disintegrating 4 mg PO Q6H PRN nausea and 06/27/23 09/09/23 Rx tablet vomiting #30 tabs pantoprazole 40 mg tablet,delayed 40 mg PO DAILY #30 tabs 06/27/23 09/09/23 Rx release (Protonix) cariprazine 3 mg capsule 3 mg PO DAILY #30 caps 09/09/23 09/09/23 Rx clonazepam 1 mg tablet 1 mg PO DAILY PRN anxiety 10 days 09/09/23 09/09/23 Rx #10 tabs Current gender identity: female Nurse's Note: Presents to the office today for follow up. [facility] Medical History Schizoaffective disorder, bipolar type History of herniated intervertebral disc Wears glasses Schizophrenia Bipolar disorder Alcohol use Easy bruising Hepatitis Injury of back Peptic ulcer History of IBS Smoker MARIA INES (obstructive sleep apnea) Shortness of breath on exertion Chronic cough Leg cramps History of stress test Hx of degenerative disc disease Herniated cervical disc Lumbar radicular pain COPD (chronic obstructive pulmonary disease) Chronic pain Ulnar nerve laceration Carpal tunnel syndrome COPD exacerbation Polysubstance abuse Tobacco use (Unknown) Asthma Anxiety Hepatitis C Surgical History History of back surgery History of lumbar laminectomy History of back surgery History of decompression of ulnar nerve History of cholecystectomy History of appendectomy History of tubal ligation Social History household members: none housing: house Smoking Status: Former smoker substance use type: does not use HPI History of Present Illness History provided by: patient HPI: Tracy Lizarraga is a 48 year old female who presents today for follow up evaluation. Patient reports that she has noticed some benefit with vraylar to this point, but does continue to have some panic like symptoms. Patient will be starting IOP on Thursday at [facility]. Has been trying to work less because of stress levels, but this does add to financial stress. Has had 4 anger outburst since last appointment, and only one of these was at work which is an improvement Feels like home life has been really good. Has been having a significant amount of guilt regarding how she raised her children, specifically her daughter is about to give but is not talking to patient. Has continued to have AH of hearing voices. These are noncommand in nature. This is mildly improved with medication use. Took several clonazepam and it does seem to help calm her down when she utilizes. Review of Systems Constitutional Denies: fever(s), chills, change in weight or fatigue Eyes Denies: change in vision or blurry vision Ears, Nose, Mouth, Throat Denies: throat pain, neck pain or change in hearing Cardiovascular Reports: dyspnea; Denies: palpitations Respiratory Reports: dyspnea; Denies: cough or wheezing Gastrointestinal Reports: nausea; Denies: abdominal pain, vomiting, diarrhea or constipation Genitourinary Denies: dysuria or urinary frequency Musculoskeletal Denies: back pain, neck pain, joint pain or muscle weakness Integumentary/Breast Denies: rash or new lesions Neurological Reports: headache(s); Denies: dizzines (more content not included)... Normal [facility] CNOVon 04-17-2023 CNOV Office Visit (AGPOB1 ) -- TRACY LIZARRAGA ([id number]) 1975 F Date Time Provider Department 04/17/23 9:00 AM SHERYL MINA AGMALCOMB1 During your visit today, we recorded the following information about you: Respiration Weight Height 18/minute 102.1 kg 1.6 m Sheryl Mina DPM 05/08/2023 10:59 AM Signed PODIATRY OFFICE NOTE CC: left calf tear [...] sensation intact at all pedal sites via Valmora Giovani 5.07 monofilament bilateral. Derm: Skin texture and turgor within normal limits. Toenails normal in appearance. Webspaces 1-4 clean, dry, intact bilateral. No rashes, subcutaneous nodules, or open lesions noted. No ecchymosis. No fracture blisters. No erythema. No hyperkeratotic tissue. Musculoskeletal/Orthopaedi c: There is intact plantarflexory strength of the [...] 25 lbs Follow up in 4-6 weeks Sheryl Mina DPM Referring Provider: SHERYL MINA [[id number]] Allergies As of Date: 04/17/2023 (No Known Allergies) Date Reviewed: 04/17/2023 Reviewed by: Sheryl Mina DPM - Fully Assessed Reason for Visit: Established Patient [175] Follow Up [171] Pain [78] Results - Mri [3561] (more content not included)... Normal [facility] CNPMerry 04-09-2023 CNPN Telephone (AGPOB1) -- TRACY LIZARRAGA ([id number]) 1975 F Date Time Provider Department 04/09/23 SHERYL MINA AGPOB1 During your visit today, we recorded the following information about you: Radha Parsons 04/09/2023 8:17 AM Signed Prior authorization is required for MRI per Marie Ryan at [facility]. Reference [id number]. Precert approved via [facility] for STAT MRI. [id number], valid 04/08/23 - 06/07/23. Radha Parsons 04/09/23 0817 Radha Parsons 04/09/2023 9:39 AM Addendum [place] does not do STAT add on's per call from [facility]. Updated appointment to [place] at 1545. Patient is aware of the updated appointment. STAT MRI scheduled TODAY, 04/09/23 at [facility] per Berna at . Order faxed to [facility]. Spoke with patient. She will arrive at 1545 for the 1600 MRI. Radha Parsons 04/09/23 0835 Allergies As of Date: 04/09/2023 (No Known Allergies) Date Reviewed: 04/08/2023 Reviewed by: Sheryl Mina DPM - Fully Assessed Reason for Visit: Insurance Authorization [[id number]] Cmt: Precert required for MRI. Prescriptions as of 04/09/2023 - ibuprofen (MOTRIN) 800 mg tablet Take 1 tablet by mouth every 8 hours. Take with food. - oxyCODONE-acetaminophen (PERCOCET) 5-325 mg tablet Take 1 tablet by mouth every 8 hours as needed for pain for up to 5 days. - albuterol HFA (PROVENTIL HFA, VENTOLIN HFA) 90 mcg/actuation inhaler Inhale 2-4 Puffs as instructed every 2 hours as needed for wheezing/shortness of breath. - albuterol HFA (VENTOLIN HFA) 90 mcg/actuation inhaler Inhale 2 Puffs as instructed every 4 hours as needed. 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] 10/22/2016 PTSD (post-traumatic stress disorder) [F43.10] 10/22/2016 Anxiety and depression [F41.9, F32.A] 10/22/2016 ASCUS with positive high risk HPV cervical [R87*11/03/2017 Cervical strain [S16.1XXA] 04/17/2020 Encounter Status:Closed by RADHA PARSONS on 04/09/23 [facility] CNPN Telephone (AGPOB1) -- TRACY LIZARRAGA ([id number]) 1975 F Date Time Provider Department 04/09/23 SHERYL MINA AGB1 During your visit today, we recorded the following information about you: Keshia Gonzalez 04/09/2023 2:32 PM Signed Patient calling to get a letter of 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 Looks like a muscle tear over Achilles. If she is allow to work in the boot, then she can go back as soon as she feels like she can safely do her job in the boot. Keshia Gonzalez 04/10/2023 10:58 AM Signed Ok she is there now she would like it noted that she can't be on her feet all day long though in boot Keshia HicksKeshia 04/10/2023 3:17 PM Signed Letter has been faxed Keshia Hicks Allergies As of Date: 04/09/2023 (No Known Allergies) Date Reviewed: 04/08/2023 Reviewed by: Sheryl Mina DPM - Fully Assessed Reason for Visit: Letter [264] Prescriptions as of 04/10/2023 - ibuprofen (MOTRIN) 800 mg tablet Take 1 tablet by mouth every 8 hours. Take with food. - oxyCODONE-acetaminophen (PERCOCET) 5-325 mg tablet Take 1 tablet by mouth every 8 hours as needed for pain for up to 5 days. - albuterol HFA (PROVENTIL HFA, VENTOLIN HFA) 90 mcg/actuation inhaler Inhale 2-4 Puffs as instructed every 2 hours as needed for wheezing/shortness of breath. - albuterol HFA (VENTOLIN HFA) 90 mcg/actuation inhaler Inhale 2 Puffs as instructed every 4 hours as needed. 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] 10/22/2016 PTSD (post-traumatic stress disorder) [F43.10] 10/22/2016 Anxiety and depression [F41.9, F32.A] 10/22/2016 ASCUS with positive high risk HPV cervical [R87*11/03/2017 Cervical strain [S16.1XXA] 04/17/2020 Letter Text Encounter Status:Closed by TOD HICKSKESHIA on 04/10/23 [facility] MRI LOWER LEG WO IVCON LTon 04-09-2023 MRI LOWER LEG WO IVCON LT * * *Final Report* * * DATE OF EXAM: Apr 09 2023 4:50PM AWM 0224 - MRI LOWER LEG WO IVCON LT / PROCEDURE REASON: Injury of Achilles tendon, initial encounter * * * * Physician Interpretation * * * * LEFT LOWER LEG MRI: CLINICAL HISTORY: Injury of Achilles tendon, initial encounter TECHNIQUE: Routine MR imaging of left lower leg was performed. COMPARISON:None. RESULT: NERVES: The visualized nerves normal in caliber and signal intensity. There is no mass or mass effect. BONE MARROW: Bone marrow signal intensity is maintained without acute fractures or marrow infiltrating neoplasm. MUSCLES: There is an approximately 6 x 2 x 17 cm collection/hemorrhage deep to the gastrocnemius musculature with partial disruption of the lateral head of gastrocnemius near the musculotendinous junction in the mid calf. Full-thickness muscle defect measuring approximately 2 cm in width. Mild associated edema-like signal greater in the lateral head of gastrocnemius. TENDONS: Visualized tendons including Achilles are grossly intact. SUBCUTANEOUS TISSUES: No focal mass or collection. JOINTS: Normal appearing knee and ankle joints within the limitation of large field of view. OTHER: None. IMPRESSION: HIGH-GRADE LATERAL GASTROCNEMIUS STRAIN WITH ASSOCIATED HEMATOMA DESCRIBED. Director Of Social Work: PSCShelby Transcribe Date/Time: Apr 09 2023 5:47P Dictated by : MADIHA RUBY MD This examination was interpreted and the report reviewed and electronically signed by: MADIHA RUBY MD on Apr 09 2023 6:01PM EST [id number] Normal [facility] CNOVon 04-08-2023 CNOV Office Visit (AGPOB1 ) -- TRACY LIZARRAGA ([id number]) 1975 F Date Time Provider Department 04/08/23 3:00 PM SHERYL MINA AGMALCOMB1 During your visit today, we recorded the following information about you: Respiration Weight Height 18/minute 102.1 kg 1.6 m Sheryl Mina DPM 04/10/2023 3:11 PM Signed PODIATRY OFFICE NOTE CC: left achilles tendon [...] unspecified urinary disorder Schizoaffective disorder, depressive type ([facility]) Current Outpatient Medications Medication Sig Dispense Refill [...] sensation intact at all pedal sites via Valmora Giovani 5.07 monofilament bilateral. Derm: Skin texture and turgor within normal limits. Toenails normal in appearance. Webspaces 1-4 clean, dry, intact bilateral. No rashes, subcutaneous nodules, or open lesions noted. + ecchymosis. No fracture blisters. No erythema. No hyperkeratotic tissue. Musculoskeletal/Orthopaedi c: There is intact plantarflexory strength of the [...] answered to her apparent satisfaction. - MRI (more content not included)... Normal [facility] Maykel 04-07-2023 MELITA Telephone (AGPOB1) -- TRACY LIZARRAGA ([id number]) 1975 F Date Time Provider Department 04/07/23 AG ORTHOPEDIC AGPOB1 During your visit today, we recorded the following information about you: Tod HicksKeshia 04/07/2023 2:30 PM Signed ----- Message from Jael Epps sent at 04/07/2023 12:48 PM EST ----- Regarding: Orthopedics / Left Leg / Rupture of left gastrocnemius tendon Patient has been identified by name and Date of (Y/N): Y Patient: Tracy Lizarraga Date of : 1975 Previous Provider Seen: N/A Body Part(s) Identified: Left Leg Diagnosis/Reason For Visit: Rupture of left gastrocnemius tendon Reason for the call/escalation: ER f/u If reason for call/escalation is discharge from ED/ER or Hospital, which facility was the patient seen at: [facility] 03/29 and 03/31/2023 Was an appointment scheduled (Y/N): N Person calling if other than patient: N/A Return call to if other than patient: N/A Best contact number: [phone] Thank you, Jael Epps April 07, 2023 12:49 PM Radha Gonzalezty 04/07/2023 2:31 PM Signed Spoke with patient and appointment and appointment was made with Dr Mina at [facility] on 04/08/23 Keshia Hicks Allergies As of Date: 04/07/2023 (No Known Allergies) Date Reviewed: 04/06/2023 Reviewed by: Jimmy Riggs MD - Fully Assessed Reason for Visit: Appointment [186] Prescriptions as of 04/07/2023 - ibuprofen (MOTRIN) 800 mg tablet Take 1 tablet by mouth every 8 hours. Take with food. - oxyCODONE-acetaminophen (PERCOCET) 5-325 mg tablet Take 1 tablet by mouth every 8 hours as needed for pain for up to 5 days. - albuterol HFA (PROVENTIL HFA, VENTOLIN HFA) 90 mcg/actuation inhaler Inhale 2-4 Puffs as instructed every 2 hours as needed for wheezing/shortness of breath. - albuterol HFA (VENTOLIN HFA) 90 mcg/actuation inhaler Inhale 2 Puffs as instructed every 4 hours as needed. 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 Director Of Social Work: [facility] HOSPITALShelby Transcribe Date/Time: May 14 2021 11:54A Dictated by : LAURENCE SUNG MD This examination was interpreted and the report reviewed and electronically signed by: LAURENCE SUNG MD on May 14 2021 11:54AM [facility] DIVISION OF RADIOLOGY * * *Final Report* * * DATE OF EXAM: May 14 2021 11:53AM WOX [id number] - XR CHEST 2V FRONTAL/LAT / PROCEDURE REASON: multiple diagnoses * * * * Physician Interpretation * * * * EXAMINATION: CHEST RADIOGRAPH (2 VIEW FRONTAL & LATERAL) CLINICAL HISTORY: Chronic obstructive pulmonary disease, unspecified COPD type (HCC) Suspected COVID-19 virus infection MQ: XC2_6 EXAM DATE/TIME: 05/14/2021 11:53 AM COMPARISON: No relevant prior studies available. RESULT: Lines, tubes, and devices: None. Lungs and pleura: No consolidation. No lung mass. No pleural effusion. No pneumothorax. Cardiomediastinal silhouette: Normal cardiomediastinal silhouette. Bones and soft tissues: Unremarkable. DIVISION OF RADIOLOGY Provider, [facility] - 05/14/2021 * * *Final Report* * * DATE OF EXAM: May 14 2021 11:53AM WOX [id number] - XR CHEST 2V FRONTAL/LAT / PROCEDURE REASON: multiple diagnoses * * * * Physician Interpretation * * * * EXAMINATION: CHEST RADIOGRAPH (2 VIEW FRONTAL & LATERAL) CLINICAL HISTORY: Chronic obstructive pulmonary disease, unspecified COPD type (HCC) Suspected COVID-19 virus infection MQ: XC2_6 EXAM DATE/TIME: 05/14/2021 11:53 AM COMPARISON: No relevant prior studies available. RESULT: Lines, tubes, and devices: None. Lungs and pleura: No consolidation. No lung mass. No pleural effusion. No pneumothorax. Cardiomediastinal silhouette: Normal cardiomediastinal silhouette. Bones and soft tissues: Unremarkable. IMPRESSION IMPRESSION: No acute radiographic abnormality. Director Of Social Work: DOLORES Transcribe Date/Time: May 14 2021 11:54A Dictated by : LAURENCE SUNG MD This examination was interpreted and the report reviewed and electronically signed by: LAURENCE SUNG MD on May 14 2021 11:54AM EST [facility] Radiology Study observation (narrative) [facility] XR Chest PA and LateralOrder ed By: [facility] Provider on 05-14-2021 [facility] No Panel Informationon 07-04 Radiology Study observation (narrative) [facility] XR Lumbar spine 3 Viewson IMPRESSION: Lumbar s pine mild degenerative changes. Director Of Social Work: DOLORES Transcribe Date/Time: Jul 04 2020 5:00P Dictated by : LAURENCE SUNG MD This examination was interpreted and the report reviewed and electronically signed by: LAURENCE SUNG MD on Jul 04 2020 5:01PM [facility] DIVISION OF RADIOLOGY * * *Final Report* * * DATE OF EXAM: Jul 04 2020 4:56PM WOX [id number] - XR LUMBAR 3V AP/LAT/L5-S1 / PROCEDURE REASON: multiple diagnoses * * * * Physician Interpretation * * * * EXAM TITLE: XR LUMBAR 3V AP/LAT/L5-S1 EXAM DATE/TIME: 07/04/2020 4:56 PM COMPARISON: None. CLINICAL INDICATION/HISTORY: Low back pain. TECHNIQUE: AP, lateral and cone down lateral views of the lumbar spine are presented. FINDINGS: There are five pgp-qiz-aupqixz lumbar vertebrae. No fracture or subluxations are noted. The disc spaces are well preserved. There is mild osteophyte formation. DIVISION OF RADIOLOGY Provider, Altagracia Fermin pereira [place] - 07/04/2020 * * *Final Report* * * DATE OF EXAM: Jul 04 2020 4:56PM WOX [id number] - XR LUMBAR 3V AP/LAT/L5-S1 / PROCEDURE REASON: multiple diagnoses * * * * Physician Interpretation * * * * EXAM TITLE: XR LUMBAR 3V AP/LAT/L5-S1 EXAM DATE/TIME: 07/04/2020 4:56 PM COMPARISON: None. CLINICAL INDICATION/HISTORY: Low back pain. TECHNIQUE: AP, lateral and cone down lateral views of the lumbar spine are presented. FINDINGS: There are five kgd-gzd-nwzasde lumbar vertebrae. No fracture or subluxations are noted. The disc spaces are well preserved. There is mild osteophyte formation. IMPRESSION IMPRESSION: Lumbar spine mild degenerative changes. Director Of Social Work: DOLORES Transcribe Date/Time: Jul 04 2020 5:00P Dictated by : LAURENCE SUNG MD This examination was interpreted and the report reviewed and electronically signed by: LAURENCE SUNG MD on Jul 04 2020 5:01PM EST [facility] XR Pelvis and Hip - right AP and Lateral frogon 07-04-2020 IMPRESSION: Accessor y bone along the edge of the right acetabulum, raising concern for Pincer type impingement. Please clinically correlate. Director Of Social Work: DOLORES Transcribe Date/Time: Jul 04 2020 5:01P Dictated by : LAURENCE SUNG MD This examination was interpreted and the report reviewed and electronically signed by: LAURENCE SUNG MD on Jul 04 2020 5:07PM [facility] DIVISION OF RADIOLOGY * * *Final Report* * * DATE OF EXAM: Jul 04 2020 4:56PM WOX [id number] - XR HIP 3V PELV+ AP/LAT RT / PROCEDURE REASON: Right hip pain * * * * Physician Interpretation * * * * EXAM TITLE: XR HIP 3V PELV+ AP/LAT RT EXAM DATE/TIME: 07/04/2020 4:56 PM COMPARISON: None. CLINICAL INDICATION/HISTORY: Right hip pain. TECHNIQUE: AP and frog lateral views of the right hip and AP view of the pelvis are presented. FINDINGS: No acute fractures or subluxations are noted in the right hip. The right hip disc space is maintained. There appears to be accessory bone along the edge of the right acetabulum. The visualized pelvic bones are intact. There is no significant soft tissue swelling. DIVISION OF RADIOLOGY Provider, German Gilman - 07/04/2020 * * *Final Report* * * DATE OF EXAM: Jul 04 2020 4:56PM WOX [id number] - XR HIP 3V PELV+ AP/LAT RT / PROCEDURE REASON: Right hip pain * * * * Physician Interpretation * * * * EXAM TITLE: XR HIP 3V PELV+ AP/LAT RT EXAM DATE/TIME: 07/04/2020 4:56 PM COMPARISON: None. CLINICAL INDICATION/HISTORY: Right hip pain. TECHNIQUE: AP and frog lateral views of the right hip and AP view of the pelvis are presented. FINDINGS: No acute fractures or subluxations are noted in the right hip. The right hip disc space is maintained. There appears to be accessory bone along the edge of the right acetabulum. The visualized pelvic bones are intact. There is no significant soft tissue swelling. IMPRESSION IMPRESSION: Accessory bone along the edge of the right acetabulum, raising concern for Pincer type impingement. Please clinically correlate. Director Of Social Work: PSCB Transcribe Date/Time: Jul 04 2020 5:01P Dictated by : LAURENCE SUNG MD This examination was interpreted and the report reviewed and electronically signed by: LAURENCE SUNG MD on Jul 04 2020 5:07PM EST [facility] XR Pelvis and Hip - right AP and Lateral frogOrdered By: Ccf Provider on 07-04-2020 [facility] HPV w/Genotypeon 02-19-2018 HPV HighRisk Other by PCR(*) Normal [facility] HPV HighRisk Type 16 NHPV16 Normal [facility] HPV HighRisk Type 18 NHPV18 Normal [facility] Trich vaginalis Amplon 02-19 T vag Amplification TVNEG Normal [facility] GC/Chlamydia Amplifon 2017 Chlamydia Amplif CLNEG Normal [facility] GC Amplification NGNEG Normal [facility] GC/Chlam Amp Source Vaginal Normal [facility] Trich vaginalis Amplon 02-18 Trich vag Amp Source Vaginal Normal [facility] Lab CYTOLOGYon 02-17-2018 CYTOLOGY ADDITIONAL PROCEDURES PRESENT ---Abnor mal Pap Test - Epithelial Cell Abnormality---Specimen #: [id number] Physician: BERTRAM ARANA SUBMITTEDA: CERVICAL, SCREENING, FLUID FINAL DIAGNOSISA. CERVICAL, SCREENING, FLUIDSatisfactory for interpretation.No endocervical component.Epithelial cell abnormality.Atypical squamous cells of undetermined significance (ASC-US).Predominance of coccobacilli consistent with shift in vaginal clementine.This specimen has been analyzed by the ThinPrep Imaging System, anautomated imaging and review system, which assists the laboratory inevaluating cells on ThinPrep Pap tests. Following automated imaging,selected lakhani from every slide are reviewed by a spanish literature professor.Karen Ferrari M.D. (Electronic Signature) ADDITIONAL PROCEDURE(S)HUMAN PAPILLOMA VIRUS Date Ordered: 02/18/2018 Date Reported: 02/19/2018 Procedure Results and InterpretationNegative for HPV DNA high risk type 16 by PCR.Negative for HPV DNA high risk type 18 by PCR.Positive for one or more of the following HPV DNA high risk types:31,33,35,39,45,51,52 ,56,58,59,66,68 by PCR(*)This test was developed and its performance characteristics determined by[facility] ([facility]).It has not been cleared or approved by the FDA. [facility] is regulated underCLIA as qualified to perform high-complexity testing. This test is used forclinical purposes. It should not be regarded as investigational or forresearch.CLINICAL DATA HPV Testing: Automatic HPV typing (HPV)GC/Chlamydia Testing: GC/Chlamydia Amp. (GCCT)Date of Last Menstrual Period:02/14/18Clinical History:ROUTINESTAINSA: CERVICAL, SCREENING, FLUID THIN PREP GYNPatient ID #: [id number] of Report: 02/24/2018Date of Procedure: 02/17/2018Date of Receipt: 02/18/2018Submitted by: JOSE MARIA ARANACLocation: Diagnostic interpretation performed at [facility], [address] [place] [address].The Pap Smear is a screening test for cervical cancer. False negativeresults occur with all screening tests, emphasizing the need forrescreening at recommended intervals, and clinical correlation. Normal [facility] Comment on above: Performed By: #### C ####See report for performing lab information. Vital Signs Date Time Vital Sign Value Performing Clinician Angel yip 04-17-2023 08:33-0500 Body height 160 cm Sheryl Figas DPM Work Phone: [facility] 04-17-2023 08:33-0500 Body weight 102.06 kg Sheryl Figas DPM Work Phone: [facility] 04-17-2023 08:33-0500 Respiratory rate 18 /min Sheryl Figas DPM Work Phone: [facility] 06-16-2022 14:22-0400 Diastolic blood pressure 76 mm[Hg] Latha Yan APRN.MINE SURVEYOR Work Phone: [facility] 03-27-2023 14:22-0400 Heart rate 108 /min Latha Yan COMPOSER TEACHING ARTIST.MINE SURVEYOR Work Phone: [facility] 06-16-2022 14:22-0400 Systolic blood pressure 123 mm[Hg] Latha Yan COMPOSER TEACHING ARTIST.MINE SURVEYOR Work Phone: [facility] 06-16-2022 14:18-0400 Body temperature 97.81 [degF] Latha Yan COMPOSER TEACHING ARTIST.MINE SURVEYOR Work Phone: [facility] 06-16-2022 14:18-0400 Body weight 113.4 kg Latha Yan COMPOSER TEACHING ARTIST.MINE SURVEYOR Work Phone: [facility] 06-16-2022 14:18-0400 Respiratory rate 16 /min Latha Yan COMPOSER TEACHING ARTIST.MINE SURVEYOR Work Phone: [facility] 06-19-2021 08:04-0400 Body height 160 cm Olivia Prakash MD Work Phone: [facility] 06-19-2021 08:04-0400 Body temperature 97 [degF] Olivia Prakash MD Work Phone: [facility] 06-19-2021 08:04-0400 Body weight 109.77 kg Olivia Prakash MD Work Phone: [facility] 06-19-2021 08:04-0400 Diastolic blood pressure 80 mm[Hg] Olivia Prakash MD Work Phone: [facility] 06-19-2021 08:04-0400 Heart rate 104 /min Olivia Prakash MD Work Phone: [facility] 06-19-2021 08:04-0400 Respiratory rate 14 /min Olivia Prakash MD Work Phone: [facility] 06-19-2021 08:04-0400 SaO2% (BldA) [Mass fraction] 96 % Olivia Prakash MD Work Phone: [facility] 06-19-2021 08:04-0400 Systolic blood pressure 124 mm[Hg] Olivia Prakash MD Work Phone: [facility] Encounters Encounter Date Encounter Type Care Provider Facility Start: 08-18-2024 End: 08-18-2024 ambulatory Balaji Jacqueline Parker Facility:[facility] Start: 08-08-2024 End: 08-08-2024 Emergency department patient visit Stanton Car Facility:[facility] Start: 07-05-2024 End: 08-05-2024 ambulatory Olivia Prakash MD Work Phone: [facility] Start: 06-26-2024 End: 06-26-2024 ambulatory Kushal Marshall NP Facility:[facility] Start: 05-19-2024 End: 05-19-2024 ambulatory Efewongbe Oleghe Facility:[facility] Start: 05-09-2024 End: 05-09-2024 ambulatory Efewongbe Oleghe Facility:[facility] Start: 04-26-2024 ambulatory Efewongbe Oleghe Facili ty:[facility] Start: 04-26-2024 End: 04-26-2024 ambulatory Efewgarrardbe Oleghe Facility:[facility] Start: 04-22-2024 End: 04-22-2024 ambulatory Vitor CUENCA Facility:[facility] Start: 04-19-2024 End: 04-19-2024 Emergency department patient visit David Espinoza Facility:[facility] Start: 04-14-2024 End: 04-14-2024 ambulatory Efewongbe Oleghe Facility:[facility] Start: 04-08-2024 End: 04-08-2024 Emergency department patient visit Marvin Dougherty Facility:[facility] Start: 04-02-2024 End: 04-02-2024 Emergency department patient visit Nathan Martinez Facility:[facility] Start: 03-24-2024 End: 03-24-2024 ambulatory Efewongbe Oleghe Facility:[facility] Start: 02-25-2024 End: 02-25-2024 ambulatory Efewongbe Oleghe Facility:[facility] Start: 02-16-2024 End: 02-16-2024 Emergency department patient visit Efewongbe Oleghe Facility:[facility] Start: 02-11-2024 End: 02-11-2024 ambulatory Efewongbe Oleghe Facility:[facility] Start: 02-02-2024 ambulatory Efewongbe Oleghe Facili ty:[facility] Start: 01-11-2024 End: 01-11-2024 ambulatory Oliviara Prakash Facility:[facility] Start: 01-11-2024 End: 01-11-2024 ambulatory Juve Brown Facility:[facility] Start: 12-10-2023 End: 12-10-2023 ambulatory Balaji L Seese Facility:[facility] Start: 12-03-2023 End: 12-03-2023 Emergency department patient visit [facility] Facility:[facility] Start: 12-01-2023 End: 12-01-2023 ambulatory [facility] Facility:[facility] Start: 11-20-2023 End: 11-20-2023 Emergency department patient visit [facility] Facility:[facility] Start: 11-03-2023 End: 11-03-2023 ambulatory Balaji L Seese Facility:[facility] Start: 10-20-2023 End: 10-20-2023 ambulatory Justo Hernandez Facility:[facility] Start: 09-17-2023 End: 09-17-2023 Emergency department patient visit Donovan Jackson Facility:[facility] Start: 09-09-2023 End: 09-09-2023 ambulatory Balaji L Seese Facility:[facility] Start: 08-05-2023 ambulatory Olivia James Work Phone: Internal Medicine [facility] Start: 04-17-2023 End: 04-17-2023 ambulatory SHERYL MINA [facility] Start: 04-17-2023 End: 04-17-2023 Patient encounter procedure Sheryl Mina DPM Work Phone: [facility] Comment on above: Rupture of left santino rocnemius tendon, subsequent encounter Start: 04-09-2023 ambulatory SHERYL MINA [facility] Start: 04-08-2023 End: 04-08-2023 ambulatory SHERYL MINA [facility] Start: 06-16-2022 End: 06-16-2022 Office outpatient visit 25 minutes Latha Yan APRN.MINE SURVEYOR Work Phone: [facility] Comment on above: Recurrent cold sores (Primary Dx); Nausea; COPD with exacerbation (HCC) Start: 06-12-2022 Telephone encounter Olivia rowley MD Work Phone: [facility] [place] Comment on above: Medication Request ( acyclovir (ZOVIRAX) 400 mg tablet) Start: 06-03-2022 Telephone encounter Olivia rowley MD Work Phone: [facility] Comment on above: Nausea & Vomiting; C ough Start: 05-28-2022 Telephone encounter Olivia rowley MD Work Phone: [facility] Comment on above: Medication Request Start: 05-12-2022 ambulatory Olivia Jmaes Work Phone: [facility] [place] Comment on above: right chest pain Start: 11-08-2021 Telephone encounter Olivia rowley MD Work Phone: [facility] Comment on above: Abdominal Pain Start: 09-18-2021 ambulatory Olivia James Work Phone: [facility] [place] Start: 08-09-2021 Refill Olivia James Work Phone: [facility] [place] Comment on above: Refill Request (Out of medication) Start: 07-10-2021 Telephone encounter Olivia rowley MD Work Phone: [facility] [place] Comment on above: Covid19 Concern Start: 06-19-2021 End: 06-19-2021 Patient encounter procedure Olivia Prakash MD Work Phone: [facility] Comment on above: Annual physical exam (Primary Dx); Weight gain; Anxiety and depression; Chronic obstructive pulmonary disease, unspecified COPD type (HCC); Tobacco abuse; Encounter for screening for HIV; Encounter for screening for diabetes mellitus; Insomnia, unspecified type; Lipid screening; No periods Start: 05-14-2021 End: 05-14-2021 Subsequent hospital visit by physician [facility] Work Phone: Radiology Comment on above: Chronic obstructive pulmonary disease, unspecified COPD type (HCC) [J44.9] Start: 07-04-2020 End: 07-04-2020 Subsequent hospital visit by physician [facility] [place] Work Phone: Radiology Comment on above: Right hip pain [M25. 551] Procedures Date Procedure Procedure Detail Performing Clinician Start: 05-14-2021 Radiologic exam ches t 2 views Nithya Harpal COMPOSER TEACHING ARTIST.HOSPICE PATIENT CARE SECRETARY Work Phone: Start: 07-04-2020 Radex hip unilateral with pelvis 2-3 views Higinio Mahmood COMPOSER TEACHING ARTIST.HOSPICE PATIENT CARE SECRETARY Work Phone: Start: 09-13-2010 Lipid 1996 panel - S vandana or Plasma Sheryl Mina DPM Work Phone: Plan of Treatment Date Care Activity Detail Author Start: 11-21-2024 Influenza vaccination Influenz a Vaccine (Season Ended) [facility] Start: 2024 Shingrix Vaccine (1 of 2) Shingrix Vaccine (1 of 2) [facility] Start: 04-06-2024 Annual PCP Team [employer] Compounder vivian Disease Visit Annual PCP Team Chronic Disease Visit [facility] Start: 11-22-2023 Covid-19 Vaccine ( season) Covid-19 Vaccine ( season) [facility] Start: 11-22-2023 Influenza vaccination [facility] Start: 12-05-2022 DIABETES SCREEN DIABETES SCREEN [facility] Start: 12-05-2022 Diabetes Screening Diabetes Screenin g [facility] Start: 11-21-2022 Covid-19 Vaccine ( season) Covid-19 Vaccine ( season) [facility] Start: 11-21-2022 Influenza vaccination Influenza Vacc ine (#1) [facility] Start: 10-22-2022 HPV TESTING HPV TESTING [facility] Start: 10-22-2022 PAP TESTING PAP TESTING [facility] Start: 10-22-2022 Screening for malign ant neoplasm of cervix [facility] Start: 06-19-2022 ANNUAL PCP TEAM TRAFFIC COORDINATOR VIVIAN DISEASE VISIT ANNUAL PCP TEAM CHRONIC DISEASE VISIT [facility] Start: 11-21-2021 Influenza vaccination [facility] Start: 06-19-2021 End: 08-19-2021 CBC W Auto Differential panel - Blood CBC + DIFF Lab Routine Annual physical exam Expected: 06/19/2021, Expires: 08/19/2021 [facility] Work Phone: Comment on above: Expected: 06/19/2021 , Expires: 08/19/2021 Start: 06-19-2021 End: 08-19-2021 Comprehensive metabolic 2000 panel - Serum or Plasma COMP METABOLIC PANEL Lab Routine Annual physical exam Expected: 06/19/2021, Expires: 08/19/2021 [facility] Work Phone: Comment on above: Expected: 06/19/2021 , Expires: 08/19/2021 Start: 06-19-2021 End: 08-19-2021 Follitropin [Units/volume] in Serum or Plasma FSH BLD Lab Routine No periods Expected: 06/19/2021, Expires: 08/19/2021 [facility] Work Phone: Comment on above: Expected: 06/19/2021 , Expires: 08/19/2021 Start: 06-19-2021 End: 08-19-2021 Hemoglobin A1c/Hemoglobin.total in Blood HGB A1C Lab Routine Encounter for screening for diabetes mellitus Expected: 06/19/2021, Expires: 08/19/2021 [facility] Work Phone: Comment on above: Expected: 06/19/2021 , Expires: 08/19/2021 Start: 06-19-2021 End: 08-19-2021 HIV 1+2 Ab [Presence] in Serum or Plasma by Immunoassay HIV 1 2 COMBO(AG/AB),WITH REFLEX TO DIFFERENTIATION Lab Routine Encounter for screening for HIV Expected: 06/19/2021, Expires: 08/19/2021 [facility] Work Phone: Comment on above: Expected: 06/19/2021 , Expires: 08/19/2021 Start: 06-19-2021 End: 08-19-2021 LIPID PANEL BASIC LIPID PANEL BASIC Lab Routine Annual physical exam Lipid screening Expected: 06/19/2021, Expires: 08/19/2021 [facility] Work Phone: Comment on above: Expected: 06/19/2021 , Expires: 08/19/2021 Start: 06-19-2021 End: 08-19-2021 Thyrotropin [Units/volume] in Serum or Plasma TSH BLD Lab Routine Weight gain Expected: 06/19/2021, Expires: 08/19/2021 [facility] Work Phone: Comment on above: Expected: 06/19/2021 , Expires: 08/19/2021 Start: 11-21-2020 Influenza vaccination INFLUENZA (#1) [facility] Start: 09-29-2020 COVID-19 VACCINE (3 - Booster for Moderna series) COVID-19 VACCINE (3 - Booster for Moderna series) [facility] Start: 06-27-2020 COVID-19 VACCINE (3 - Booster for Moderna series) COVID-19 VACCINE (3 - Booster for Moderna series) [facility] Start: 06-03-2019 COLOGUARD (FIT-DNA) COLOGUARD (FIT-D NA) [facility] Start: 06-03-2019 Colonoscopy COLONOSCOPY [facility] Start: 06-03-2019 COLORECTAL CANCER SCREENING COLORECTAL CANCER SCREENING [facility] Start: 06-03-[address] COLONOGRAPHY [facility] Start: 06-03-2019 FECAL OCCULT BLOOD FECAL OCCULT BLOO D [facility] Start: 06-03-2019 Lipid panel Lipid Screening [facility] Start: 06-03-2019 LIPID SCREEN LIPID SCREEN [facility] Start: 06-03-2019 Screening for malign ant neoplasm of colon [facility] Start: 06-03-2019 SIGMOIDOSCOPY SIGMOIDOSCOPY [facility] Start: 2014 Mammography MAMMOGRAM [facility] Start: 2014 Screening for malign ant neoplasm of breast Mammogram Screening [facility] Start: 11-28-2011 PNEUMOCOCCAL (2 - PCV) PNEUMOCOCCAL (2 - PCV) [facility] Start: 11-28-2011 Pneumococcal vaccination Pneumococcal Vaccine (2 of 2 - PCV) [facility] Start: 11-28-2011 Pneumococcal Vaccine : 50+ (2 of 2 - PCV) Pneumococcal Vaccine: 50+ (2 of 2 - PCV) [facility] Start: 02-20-2011 Hepatitis B Vaccine (3 of 3 - Hep B Twinrix 3-dose series) Hepatitis B Vaccine (3 of 3 - Hep B Twinrix 3-dose series) [facility] Start: 2004 Zoledronic acid therapy ALPHA- 1 ANTITRYPSIN DEFICIENCY SCREENING [facility] Start: 1993 Urine microalbumin profile [facility] Start: 1992 HIV SCREENING HIV SCREENING [facility] Start: 1992 HIV screening HIV Screening [facility] Start: 1992 SPIROMETRY SPIROMETRY [facility] Start: 1974 HEPATITIS B (1 of 3 - 3-dose series) HEPATITIS B (1 of 3 - 3-dose series) [facility] End: 08-04-2025 DBT Breast - bilateral screening ИРИНА SCREENING W [facility] Radiology Routine Encounter for screening mammogram for breast cancer 1 Occurrences starting 07/05/2024 until 08/04/2025 [facility] Work Phone: Comment on above: 1 Occurrences starti ng 07/05/2024 until 08/04/2025 End: 09-03-2024 MG Breast Screening ИРИНА SCREENING Radiology Routine Encounter for screening mammogram for breast cancer 1 Occurrences starting 08/05/2023 until 09/03/2024 [facility] Work Phone: Comment on above: 1 Occurrences starti ng 08/05/2023 until 09/03/2024 End: 10-18-2022 Screening mammography bi 2-view breast inc cad ИРИНА SCREENING Radiology Routine Encounter for screening mammogram for breast cancer 1 Occurrences starting 09/18/2021 until 10/18/2022 [facility] Work Phone: Comment on above: 1 Occurrences starti ng 09/18/2021 until 10/18/2022 [facility] Immunizations Immunization Date Immunization Notes Care Provider Fa [facility] 11-27-2010 influenza virus vacc ine, unspecified formulation Olivia Prakash MD Work Phone: [facility] 11-27-2010 pneumococcal polysaccharide vaccine, 23 valent Olivia Prakash MD Work Phone: [facility] Payers Date Payer Category Payer Self-pay 2023 Unknown [id number] 2022 Unknown [facility] [id number] 2022-Present [phone] [address] [place] [address] Indemnity [id number] 2022 Unknown [id number] 2020 Medicaid [employer] [id number] 2020-Present [phone] [address] [place] [address] Medicaid [id number] 2019 Medicaid [id number]. [id number] Unknown [id number] 2.16.840.1.745048.3.579.2.462 Unknown [id number] 2.16.840.1.922863.3.579.2.462 Unknown [id number] 2.16.840.1.458998.3.579.2.462 Unknown [id number] 2.16.840.1.367950.3.579.2.462 Unknown [id number] 2.16.840.1.706956.3.579.2.462 Unknown [id number] 2.16.840.1.981969.3.579.2.462 Unknown [id number] 2.16.840.1.174702.3.579.2.462 Unknown [id number] 2.16.840.1.448288.3.579.2.462 Unknown [id number] 2.16.840.1.987308.3.579.2.462 Unknown [id number] 2.16.840.1.361662.3.579.2.462 Unknown [id number] 2.16.840.1.618361.3.579.2.462 Unknown [id number] 2.16.840.1.488898.3.579.2.462 Unknown [id number] 2.16.840.1.168484.3.579.2.462 Unknown [id number] 2.16.840.1.208031.3.579.2.462 Unknown [id number] 2.16.840.1.458668.3.579.2.462 Unknown [id number] 2.16840.1.935223.3.579.2.462 Unknown [id number] 2.16.840.1.307299.3.579.2.462 Unknown [id number] 2.16840.1.286765.3.579.2.462 Unknown [id number] 2.16840.1.473045.3.579.2.462 Unknown [id number] 2.840.1.973697.3.579.2.462 Unknown [id number] 2.840.1.040872.3.579.2.462 Unknown [id number] 2.840.1.853077.3.579.2.462 Unknown [id number] 2.16840.1.379773.3.579.2.462 Unknown [id number] 2.840.1.348431.3.579.2.462 Unknown [id number] 2.840.1.929039.3.579.2.462 Unknown [id number] 2.840.1.501789.3.579.2.462 Unknown [id number] 2.840.1.620505.3.579.2.462 Unknown [id number] 2.840.1.980462.3.579.2.462 Social History Date Type Detail Facility Start: 12-06-2012 End: 03-05-2022 Tobacco smoking status [facility] Occasional tobacco smoker [facility] Work Phone: Start: 12-06-2012 End: 12-06-2016 History of tobacco use Cigarette Smoker [facility] Work Phone: Start: 10-22-2017 End: 04-08-2023 Cigarettes smoked current (pack per day) - Reported 0.5 [facility] Start: 10-22-2017 End: 03-05-2022 Tobacco use and exposure Smokeless tobacco non-user [facility] Work Phone: Start: 06-19-2021 End: 04-17-2023 Alcohol intake Current non-drinker of alcohol (finding) [facility] Start: 04-07-2017 History SDOH Alcohol Comment pt quit drinking in September [facility] Start: 01-08-2011 End: 03-05-2022 Tobacco Comment 1 pack every 3 days [facility] Start: 1975 Sex Assigned At Not on file [facility] Start: 06-04-2020 End: 10-31-2021 Exposure to SARS-CoV-2 (event) Not sure [facility] Work Phone: Start: 04-14-2021 End: 07-10-2021 Exposure to SARS-CoV-2 (event) Yes [facility] Start: 04-08-2023 End: 04-17-2023 Tobacco use panel [facility] Adult Depression Screening Assessment 0 [facility] Clinical Notes 07-04-2020 to 07-05-2024 Sheryl Mina DPM - 04/17/2023 8:40 AM ESTPatient Manuela Yan APRN.MINE SURVEYOR - 06/16/2022 2:20 PM EDTTelephone Encounter - Marie Aguillon APRN.HOSPICE PATIENT CARE SECRETARY - 06/13/2022 12:23 PM EDT Note Date & Type Note Facility 07-05-2024 Note Patient Outreach (IN TMWS) TRACY LIZARRAGA ([id number]) 1975 F Date Time Provider Department 07/05/24 OLIVIA PRAKASH During your visit today, we recorded the following information about you: Allergies As of Date: 07/05/2024 (No Known Allergies) Date Reviewed: 04/17/2023 Reviewed by: Sheryl Mina DPM - Fully Assessed Visit Diagnosis:Encounter for screening mammogram for breast cancer [Z12.31] Order(s):ИРИНА SCREENING W DEANDRE [[id number]] Order #: [id number] FUTURE Prescriptions as of 08/05/2024 - ibuprofen (MOTRIN) 800 mg tablet Take 1 tablet by mouth every 8 hours. Take with food. - albuterol HFA (PROVENTIL HFA, VENTOLIN HFA) 90 mcg/actuation inhaler Inhale 2-4 Puffs as instructed every 2 hours as needed for wheezing/shortness of breath. - albuterol HFA (VENTOLIN HFA) 90 mcg/actuation inhaler Inhale 2 Puffs as instructed every 4 hours as needed. 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 04-17-2023 Note HNO ID: [id number] Author: SHERYL MINA DPM Service: ? Author Type: Physician Type: Progress Notes Filed: 05/08/2023 10:59 Note Text: PODIATRY OFFICE NOTE CC: left calf tear [...] sensation intact at all pedal sites via Valmora Giovani 5.07 monofilament bilateral. Derm: Skin texture [...] 25 lbs Follow up in 4-6 weeks Sheryl Mina DPM [facility] 04-17-2023 History of Presen t illness Narrative [...] sensation intact at all pedal sites via Valmora Giovani 5.07 monofilament bilateral. Derm: Skin texture [...] 25 lbs Follow up in 4-6 weeks Sheryl Mina DPM documented in this encounter [facility] 04-09-2023 Note HNO ID: [id number] Author: HOOD SOLANO RT(Tyrell) Service: Radiology Author Type: Technologist Type: Progress Notes Filed: 04/09/2023 16:33 Note Text: Radiology Service Progress Note PATIENT NAME: Tracy Lizarraga DATE OF SERVICE: April 09, 2023 TIME: [...] PERIPHERAL IV DATA: Not applicable SIGNED BY: SHANICE LimaR) April 09, 2023 4:32 PM [facility] 04-08-2023 Note HNO ID: [id number] Author: SHERYL MINA DPM Service: ? Author Type: Physician [...] unspecified urinary disorder Schizoaffective disorder, depressive type ([facility]) Current Outpatient Medications Medication Sig Dispense Refill [...] sensation intact at all pedal sites via Valmora Giovani 5.07 monofilament bilateral. Derm: Skin texture [...] Follow up after (more content not included)... [facility] 06-16-2022 Instructions Latha Yan APRN.JOHN - 06/16/2022 2:55 PM EDT Okay to [...] couple of days documented in this encounter [facility] 06-16-2022 History of Presen t illness Narrative PCP: Olivia Prakash MD FREDDY Lizarraga is a 47 year old female who [...] improved in the next couple of days. Latah Yan APRN.CNS Medical Decision Making: Problems: Moderate: Acute illness with systemic symptoms Risk: Moderate: Drug management Medical Decision Making Level: 4 - Moderate documented in this encounter [facility] 06-13-2022 Miscellaneous Notes Noted. Marie Aguillon [...] and states that she made appointment with aLtha Yan on 06/16/2022. Patient states that her lip continues to swell. [facility]. Patient states she cannot find the time for that due to work. Still is asking if prescription can be sent. Please review and advise, Fouzia Larose RN Tracy Lizarraga is calling Olivia Prakash MD today to request Medication not on her current list: acyclovir (ZOVIRAX) 400 mg tablet. Patient stated she has cold sore on her lip and needs today. Please send to [facility] today. Patient has been identified by name and birthdate. Duration of symptoms: N/A Person calling: self Call patient at: on cell [phone] (home) [phone] (cell) Was an appointment scheduled: No Closing statement: Results or non-symptom based questions: Thank you for calling [facility], your call will be returned within the next business day. Janet Melendez documented in this encounter [facility] 06-03-2022 Miscellaneous Notes Pt called and is notified of providers results and instructions. Pt voices understanding. Fariba Cabrera RN Refilled the zofran for 24 tabs, that should help with the gagging, I think she should take oral pills because the amount she may need for liquid would be more, , its hard to find a forumlary for it. I just tried Regards, Olivia Prakash MD Pt calls to report she was seen in on 05/28/22. Pt had nausea and left [...] Please review and advise. Call pt with dr's message. Deanna Rodas LPN documented in this encounter [facility] 05-28-2022 Miscellaneous Notes Filled in another encounter Shonda Aguillon APRN.GILMA Patient calling she started new medication from her Psych and is making her dizzy. she has notified them. Patient is asking for zofran rx. Patient uses [facility] for her pharmacy. Patient goes to work at 2 pm today needing it quickly. Pending rx to file. Please advise documented in this encounter [facility] 05-12-2022 Miscellaneous Notes Patient has not been seen in almost a year with multiple ER visits since last being seen. Needs an ER follow-up scheduled. Thank you Marie Aguillon APRN.HOSPICE PATIENT CARE SECRETARY Protocol recommends ER now. Patient agreeable. Reason [...] and to center of back. Went to [facility] ER 05-07 who r/o heart causes and pneumonia and [...] sure 10. : No Protocols used: Chest [id number] documented in this encounter [facility] 11-08-2021 Miscellaneous Notes Urgent care eval [...] recommend. Please advise. documented in this encounter [facility] 08-09-2021 Miscellaneous Notes Patient has been [...] Janet Abreu Pss documented in this encounter [facility] 07-10-2021 Miscellaneous Notes Mailbox is full. Please let patient know Zofran prescription has been sent as requested. Thank you Marie Aguillon APRN.GILMA Patient calls in to report she was diagnosed with Covid on ThursdayJuly 05 at [facility] ER. She reports that her symptoms include [...] Rupali Clemente RN documented in this encounter [facility] 06-19-2021 History of Presen t illness Narrative Reason for Visit Patient presents with: Established Patient: multiple issues, sleeping,hormones, depression Tracy Lizarraga is a 46 year old female who presents here today for CPE. Health Maintenance SPIROMETRY HIV SCREENING DTAP,TDAP,TD(1 - Tdap) MAMMOGRAM LIPID SCREEN COLORECTAL CANCER SCREENING COVID-19 VACCINE(3 - Booster for Moderna series) INFLUENZA(1) HPI On May 30 patient had bilateral carpal tunnel surgery release by Dr. Bryce reed. She seems to be doing well after that. 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 FALL SCREENING: Has the patient had 2 falls in the last year or 1 fall with injury or currently using an Ambulatory Assistive Device (Walker, Cane, Wheelchair, Crutches, etc.)? No PATIENT GENDER DATA: Female. status: : No status: NO. PATIENT RELEVANT IMPLANT DATA REVIEWED: Yes RADIOLOGY DEPARTMENT: General X-ray: Exam(s) Completed: Chest X-Ray PERIPHERAL IV DATA: Not applicable SIGNED BY: RT Dru(R) May 14, 2021 11:44 AM documented in this encounter [facility] 07-04-2020 History of Presen t illness Narrative Radiology Service Progress Note PATIENT NAME: Tracy Lizarraga DATE OF SERVICE: July 04, 2020 TIME: 4:44 PM PATIENT IDENTITY VERIFICATION COMPLETED USING TWO (2) IDENTIFIERS: Name and Date of confirmed by patient verbally. FALL SCREENING: Has the patient had 2 falls in the last year or 1 fall with injury or currently using an Ambulatory Assistive Device (Walker, Cane, Wheelchair, Crutches, etc.)? No PATIENT GENDER DATA: Female. status: : No status: NO. PATIENT RELEVANT IMPLANT DATA REVIEWED: Not Applicable RADIOLOGY DEPARTMENT: General X-ray: Exam(s) Completed: Spine X-Ray(s): Lumbar AP / LAT / L5-S1 Pelvis X-Ray: Pelvis with Hip Right PERIPHERAL IV DATA: Not applicable SIGNED BY: RT Danay July 04, 2020 4:44 PM documented in this encounter [facility] Evaluation note Diagnosis Annual physical exam- Primary Routine general medical examination at a health care facility Weight gain Abnormal weight gain Anxiety and depression Dysthymic disorder Chronic obstructive pulmonary disease, unspecified COPD type (HCC) Tobacco abuse Tobacco use disorder Encounter for screening for HIV Encounter for screening for diabetes mellitus Screening for diabetes mellitus Insomnia, unspecified type Lipid screening Screening for lipoid disorders No periods Absence of menstruation [facility] Diagnosis Encounter for screening mammogram for breast cancer documented in this encounter [facility] note* Diagnosis Nausea Nausea alone documented in this encounter [facility] note* Diagnosis Recurrent cold sores Herpes simplex without mention of complication documented in this encounter [facility] note* Diagnosis Recurrent cold sores- Primary Herpes simplex without mention of complication Nausea Nausea alone COPD with exacerbation (HCC) Obstructive chronic bronchitis with exacerbation [facility] Diagnosis Rupture of left gastrocnemius tendon, subsequent encounter [facility]* Diagnosis Encounter for screening mammogram for breast cancer [facility]* Diagnosis Chronic obstructive pulmonary disease, unspecified COPD type (HCC) Suspected COVID-19 virus infection [facility]* Diagnosis Right hip pain Pain in joint, pelvic region and thigh Acute exacerbation of chronic low back pain Lumbago [facility]* Diagnosis Encounter for screening mammogram for breast cancer [facility] Diagnostic Procedure Only (Routine) - Pending Review Specialty Diagnoses / Procedures Referred By Lana aguiar Referred To Contact [facility] Diagnoses Encounter for screening mammogram for breast cancer Procedures ИРИНА SCREENING SCREENING MAMMOGRAPHY BI 2-VIEW BREAST INC Olivia Reynoso MD [address] [place] [address] [facility] [address] [place] [phone] Referral ID Status Reason Start Date Expiration Date Visits Requested Visits Authorized [id number] Pending Review Auto-Generat ed Referral 09/18/2021 10/18/2022 1 1 [facility] Diagnostic Procedure Only (Routine) - Pending Review Specialty Diagnoses / Procedures Referred By Lana aguiar Referred To Contact [facility] Diagnoses Encounter for screening mammogram for breast cancer Procedures ИРИНА SCREENING SCREENING MAMMOGRAPHY BI 2-VIEW BREAST INC CAD Olivia Prakash MD [address] [place] [address] [facility] [address] [place] [address] Referral ID Status Reason Start Date Expiration Date Visits Requested Visits Authorized [id number] Pending Review Auto-Generat ed Referral 08/05/2023 09/03/2024 1 1 [facility] Summary Purpose Family History No Family History Records FoundNo Family History Records FoundNo Family History Records FoundNo Family History Records FoundNo Family History Records Found Advance Directives No Advanced Directives Records FoundDocuments on File Type Date Recorded Patient Admissions Clinician Expl anation Advance Directive(s) Documents on File Type Date Recorded Patient Admissions Clinician Expl anation Advance Directive(s) Reason for Referral Specialty Diagnoses / Procedures Referred By Contac t Referred To Contact Diagnoses COPD with exacerbation (HCC) Latha Yan, CLAUDETTE.MINE SURVEYOR [address] [place] [address] Referral ID Status Reason Start Date Expiration Date Visits Re quested Visits Authorized [id number] Closed 1 1 Additional Source Comments INFORMATION SOURCE (unrecogn ized section and content) DATE CREATED AUTHOR 03/01/2018 [facility] DATE CREATED AUTHOR AUTHOR'S ORGANIZ ATION 03/02/2018 [facility] DATE CREATED AUTHOR AUTHOR'S ORGANIZ ATION 05/10/2023 [facility] DATE CREATED AUTHOR AUTHOR'S ORGANIZ ATION 08/06/[address] [facility] DATE CREATED AUTHOR AUTHOR'S ORGANIZ ATION 08/22/2024 [facility] Source Comments (unrecognize d section and content) In the event this informatio n is protected by the Federal Confidentiality of Alcohol and Drug Abuse Patient Records regulations: The Federal rules restrict any use of the information to criminally investigate or prosecute any alcohol or drug abuse patient.[facility] the event this information is protected by the Federal Confidentiality of Alcohol and Drug Abuse Patient Records regulations: The Federal rules restrict any use of the information to criminally investigate or prosecute any alcohol or drug abuse patient.[facility] the event this information is protected by the Federal Confidentiality of Alcohol and Drug Abuse Patient Records regulations: The Federal rules restrict any use of the information to criminally investigate or prosecute any alcohol or drug abuse patient.[facility] the event this information is protected by the Federal Confidentiality of Alcohol and Drug Abuse Patient Records regulations: The Federal rules restrict any use of the information to criminally investigate or prosecute any alcohol or drug abuse patient.[facility] the event this information is protected by the Federal Confidentiality of Alcohol and Drug Abuse Patient Records regulations: The Federal rules restrict any use of the information to criminally investigate or prosecute any alcohol or drug abuse patient.[facility] the event this information is protected by the Federal Confidentiality of Alcohol and Drug Abuse Patient Records regulations: The Federal rules restrict any use of the information to criminally investigate or prosecute any alcohol or drug abuse patient.[facility] the event this information is protected by the Federal Confidentiality of Alcohol and Drug Abuse Patient Records regulations: The Federal rules restrict any use of the information to criminally investigate or prosecute any alcohol or drug abuse patient.[facility] the event this information is protected by the Federal Confidentiality of Alcohol and Drug Abuse Patient Records regulations: The Federal rules restrict any use of the information to criminally investigate or prosecute any alcohol or drug abuse patient.[facility] the event this information is protected by the Federal Confidentiality of Alcohol and Drug Abuse Patient Records regulations: The Federal rules restrict any use of the information to criminally investigate or prosecute any alcohol or drug abuse patient.[facility] the event this information is protected by the Federal Confidentiality of Alcohol and Drug Abuse Patient Records regulations: The Federal rules restrict any use of the information to criminally investigate or prosecute any alcohol or drug abuse patient.[facility] the event this information is protected by the Federal Confidentiality of Alcohol and Drug Abuse Patient Records regulations: The Federal rules restrict any use of the information to criminally investigate or prosecute any alcohol or drug abuse patient.[facility] the event this information is protected by the Federal Confidentiality of Alcohol and Drug Abuse Patient Records regulations: The Federal rules restrict any use of the information to criminally investigate or prosecute any alcohol or drug abuse patient.[facility] the event this information is protected by the Federal Confidentiality of Alcohol and Drug Abuse Patient Records regulations: The Federal rules restrict any use of the information to criminally investigate or prosecute any alcohol or drug abuse patient.[facility] the event this information is protected by the Federal Confidentiality of Alcohol and Drug Abuse Patient Records regulations: The Federal rules restrict any use of the information to criminally investigate or prosecute any alcohol or drug abuse patient.[facility] the event this information is protected by the Federal Confidentiality of Alcohol and Drug Abuse Patient Records regulations: The Federal rules restrict any use of the information to criminally investigate or prosecute any alcohol or drug abuse patient.[facility] Reason for Visit (unrecogniz ed section and content) Reason Comments Established Patient multiple issues, sle eping,hormones, depression Reason Comments Covid19 Concern Reason Onset Date [...] Achilles tendon. Procedures Injury of Achilles tendon. 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 Specialty Start Date End Date Olivia Prakash MD [address] [place] [address] PCP - General Internal Medicine 04/07/17 Otr Refrigerated Cdl Truck Driver Relationship Specialty Start Date End Date Olivia Prakash MD [address] [place] [address] PCP - General Internal Medicine 04/07/17 Otr Refrigerated Cdl Truck Driver Relationship Specialty Start Date End Date Olivia Prakash MD [address] [place] [address] PCP - General Internal Medicine 04/07/17 Otr Refrigerated Cdl Truck Driver Relationship Specialty Start Date End Date Olivia Prakash MD [address] [facility] [place] [address] PCP - General Internal Medicine 04/07/17 Otr Refrigerated Cdl Truck Driver Relationship Specialty Start Date End Date Olivia Prakash MD [address] [facility] [place] [address] PCP - General Internal Medicine 04/07/17 Otr Refrigerated Cdl Truck Driver Relationship Specialty Start Date End Date Olivia Prakash MD [address] [facility] [place] [address] PCP - General Internal Medicine 04/07/17 Otr Refrigerated Cdl Truck Driver Relationship Specialty Start Date End Date Olivia Prakash MD [address] [facility] [place] [address] PCP - General Internal Medicine 04/07/17 Otr Refrigerated Cdl Truck Driver Relationship Specialty Start Date End Date Olivia Prakash MD [address] [place] [address] PCP - General Internal Medicine 04/07/17 Otr Refrigerated Cdl Truck Driver Relationship Specialty Start Date End Date Olivia Prakash MD [address] [place] [address] PCP - General Internal Medicine 04/07/17 Otr Refrigerated Cdl Truck Driver Relationship Specialty Start Date End Date Olivia Prakash MD [address] [place] [address] PCP - General Internal Medicine 04/07/17 Nithya Sheth NP [address] [place] [address] Referring Family Medicine 03/26/23 Otr Refrigerated Cdl Truck Driver Relationship Specialty Start Date End Date Olivia Prakash MD [address] [place] [address] PCP - General Internal Medicine 04/07/17 Nithya Sheth NP [address] [place] [address] Referring Family Medicine 03/26/23 Otr Refrigerated Cdl Truck Driver Relationship Specialty Start Date End Date Olivia Prakash MD [address] [place] [address] PCP - General Internal Medicine 04/07/17 Otr Refrigerated Cdl Truck Driver Relationship Specialty Start Date End Date Olivia Prakash MD [address] [place] [address] PCP - General Internal Medicine 04/07/17 Otr Refrigerated Cdl Truck Driver Relationship Specialty Start Date End Date Olivia Prakash MD [address] [place] [address] PCP - General Internal Medicine 04/07/17 Nithya Sheth NP [address] [place], [place] [id number] Referring Family Medicine 03/26/23 Marie Aguillon APRN.CNP [address] [place], [place] [id number] Food And Beverage Director Internal Medicine 02/28/24 FOR RECORDS PERTAINING TO PATIENTS WHO ARE [...] BE BASED ON THE PRIMARY CLINICAL RECORDS. [employer] provides no warranty or guarantee of the accuracy or completeness of information in this document.
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
[2024-08-27 06:12] VITALS: BP 121/77; PULSE 98; RESP 14; TEMP 36.6; O2SAT 100
== END 2024-08-27 06:14 | disposition home or self-care (01) ==
PROVIDERS: Emergency Provider Emergency Medicine; PCP Internal Medicine; Visit Provider Emergency Medicine
DX: S51.812A Laceration without foreign body of left forearm, initial encounter (principal); F25.0 Schizoaffective disorder, bipolar type; E66.01 Morbid (severe) obesity due to excess calories; Z68.41 Body mass index [BMI] 40.0-44.9, adult; S50.12XA Contusion of left forearm, initial encounter; S50.812A Abrasion of left forearm, initial encounter; W01.198A Fall on same level from slipping, tripping and stumbling with subsequent striking against other object, initial encounter; W26.0XXA Contact with knife, initial encounter; Y92.000 Kitchen of unspecified non-institutional (private) residence as the place of occurrence of the external cause; F17.210 Nicotine dependence, cigarettes, uncomplicated; F17.290 Nicotine dependence, other tobacco product, uncomplicated; Z79.899 Other long term (current) drug therapy; Z23 Encounter for immunization
CPT/HCPCS: 12002; 90471; 90715; 99284

== ENCOUNTER 2024-09-16 14:43 | Emergency (ER) | payer MEDICAID, SELFPAY ==
[2024-09-16 14:44] VITALS: BP 138/103; PULSE 83; RESP 18; TEMP 37; O2SAT 99; BMI 44.2
== END 2024-09-16 14:53 | disposition left against medical advice (07) ==
LOC: ED 15:12
PROVIDERS: PCP Internal Medicine
DX: Z53.21 Procedure and treatment not carried out due to patient leaving prior to being seen by health care provider (principal)
CPT/HCPCS: 96360

== ENCOUNTER → 2024-11-14 | Outpatient (CLI) | payer MEDICAID, SELFPAY ==
--- NOTE | 2024-11-14 15:52 | RAD_ITS ---
PROCEDURE: CHEST PA AND LATERAL 11/14/2024 REASON FOR EXAM: COUGH TECHNIQUE: CHEST PA AND LATERAL COMPARISON: None. RAD/Chest PA and Lateral IMPRESSION: Lungs appear clear of acute disease. No pleural effusion or pneumothorax is noted. The cardiomediastinal silhouette is within the normal range. Degenerative changes of the bilateral acromioclavicular joints, kifo-[id number]-ti an-right, are noted. Minimal to mild degenerative changes of the spine are seen. No acute osseous change is seen. Reading Location: [place] [id number]
== END | disposition home or self-care (01) ==
PROVIDERS: PCP Internal Medicine; Referring Provider Physician Assistant; Visit Provider Physician Assistant
DX: R05.9 Cough, unspecified (principal)
CPT/HCPCS: 71046

== ENCOUNTER → 2025-03-01 | Outpatient (CLI) | payer MEDICAID, SELFPAY ==
--- NOTE | 2025-03-01 15:40 | RAD_ITS ---
PROCEDURE: CHEST PA AND LATERAL 03/01/2025 REASON FOR EXAM: SOB TECHNIQUE: Procedure Code: RADCXR Modality: DX Procedure: CHEST PA AND LATERAL COMPARISON: Available priors FINDINGS: Support/devices:None. Heart:Normal in size. Mediastinum: Unremarkable Lungs: Clear. No consolidation. No mass. Pleura: No pneumothorax. No pleural effusion. Osseous structures: No fracture. Multilevel degenerative disease. Soft tissues: No soft tissue abnormality. RAD/Chest PA and Lateral IMPRESSION: No acute cardiopulmonary process. Reading Location: [facility]
== END | disposition home or self-care (01) ==
LOC: MTRAD 15:40
PROVIDERS: PCP Internal Medicine; Referring Provider Physician Assistant; Visit Provider Physician Assistant
DX: R06.02 Shortness of breath (principal)
CPT/HCPCS: 71046

== ENCOUNTER 2025-03-21 16:49 | Emergency (ER) | payer MEDICAID, SELFPAY ==
[2025-03-21 16:51] VITALS: BP 119/64; PULSE 107; RESP 18; TEMP 36.9; O2SAT 96; BMI 45.1
--- NOTE | 2025-03-21 17:10 | ED.RN ---
Per Dr Mendoza no sitter needed.
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
[2025-03-21 18:22] VITALS: BP 126/79; PULSE 106; RESP 18; TEMP 36.6; O2SAT 98
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
== END 2025-03-21 18:28 | disposition home or self-care (01) ==
PROVIDERS: Emergency Provider Surgery; PCP Internal Medicine; Visit Provider Surgery
DX: R45.851 Suicidal ideations (principal); T74.31XA Adult psychological abuse, confirmed, initial encounter; F41.9 Anxiety disorder, unspecified; F17.210 Nicotine dependence, cigarettes, uncomplicated
CPT/HCPCS: 99283